=== PATIENT | female | born 1950 | race Caucasian/White ===

== ENCOUNTER 2017-09-17 21:18 | Emergency (ER) | payer BC, SELFPAY ==
[2017-09-17 21:23] VITALS: BP 161/89; PULSE 77; RESP 15; TEMP 36.2; BMI 36.1
[2017-09-17 21:36] LABS: Mucous, Urine 0 SEEN /hpf (<or=2+)
[2017-09-17 21:37] LABS: Glucose, Dipstick Normal (Normal); Ketone-Dipstick Negative (Negative); Leukocyte Esterase-Dipstick Negative /ul (Negative); Nitrite-Dipstick Negative (Negative); Occult Blood-Urine 50 /ul (Negative); Protein-Dipstick 30 mg/dl (Negative); Urine Bilirubin Dipstick Negative (Negative); Urine Urobilinogen Normal (Normal)
[2017-09-17 21:39] LABS: Color, Urine Yellow (Yellow); Urine Clarity Sl Cldy (Clear)
--- NOTE | 2017-09-17 21:43 | CT_ITS ---
STUDY: CT ABDOMEN AND PELVIS WITHOUT CONTRAST REASON FOR EXAM: Female, 67 years old. Right flank pain and vomiting RADIATION DOSAGE (If Supplied By Facility): CTDIvol = ( 16.07 ) mGy, DLP = ( 798.75 ) mGycm TECHNIQUE: Transaxial images were obtained from the dome of the diaphragm to the symphysis pubis without oral contrast, and without intravenous contrast. Sagittal and coronal images were reconstructed. Individualized dose optimization techniques were used for this CT. COMPARISON: 01/02/2011 FINDINGS: The visualized lung bases are unremarkable. The visualized portions of the heart are within normal limits. Small hiatal hernia. Multiple hepatic cysts, the largest measuring 24 mm in the right hepatic lobe. Multiple gallstones are present. The gallbladder is distended. Normal spleen. Normal pancreas. Normal bilateral adrenal glands. Horseshoe kidney is present. Normal visualized stomach. Normal small intestine. There are multiple colonic diverticula consistent with diverticulosis. The appendix is visualized and appears normal. Normal abdominal aorta. Normal inferior vena cava. Normal retroperitoneum. Normal urinary bladder. Normal abdominal wall. There are diffuse degenerative changes of the visualized lumbar spine. CT/Abdomen/Pelvis without Cont IMPRESSION: Distended gallbladder with multiple stones. No evidence of acute intestinal pathology or acute obstructive uropathy. Horseshoe kidney. Small hiatal hernia. Electronically Signed: Pratik Fields MD at 22:45 EST Tel , Service support ,
[2017-09-17 21:46] LABS: Hyaline Cast 0-5 SEEN /lpf (0-5); Squamous Epithelial Cells - UA 0-5 SEEN /hpf (5-10)
--- NOTE | 2017-09-17 21:46 | ED.VISSUMM ---
- ER Visit Summary Date of Service: 09/17/17 Chief Complaint: [] Right flank pain History of Present Illness: The patient is a 67 F [] complaining of right flank pain beginning prior to arrival. Reports nausea and vomiting. Reports a history of kidney stones with similar pain. She reports a history of horseshoe kidney. Reports she has an established urologist but she has not seen him for many years. Denies fevers. Denies dysuria. No other complaints. Physical Examination: [] Afebrile, vital signs stable. Cardiovascular exam is regular rate and rhythm. Lungs are clear to auscultation. Abdomen is soft and nontender, there is mild right CVA tenderness. No lower extremity edema. Remainder of exam is unremarkable. Test Results: [] White cell count elevated 16.8. BMP normal. LFTs normal. Urinalysis negative. CT of the flank shows a mildly distended gallbladder with several gallstones. No obvious kidney stones. Emergency Department Course and Treatment: [] Given intravenous fluids, Toradol, Phenergan, morphine. On serial examination patient had resolution of symptoms. She was able to pass a p.o. challenge. She had stable vital signs. Patient was counseled regarding her diagnostic findings including the need for an outpatient cholecystectomy. She reports that she does not have a surgeon. I encouraged that she follow-up with her PCP for recommendation. She will be discharged with prescriptions for Percocet and Phenergan. Treatment Plan: [] Follow-up with PCP for referral for outpatient surgery.. Disposition: [] Discharge, stable. Impression: [] Cholelithiasis This note was generated with [employer] dictation software. It may contain incorrect words, spelling, and punctuation that were not noted in review of the chart prior to signing ED Disposition - Plan for ED Patient: Chief Complaint: Flank Pain Referrals: Osito Davalos MD [Primary Care Provider] -
[2017-09-17 21:47] LABS: White Blood Cells 0-5 SEEN /hpf (0-5)
[2017-09-17 21:48] LABS: Bacteria 1+ /hpf (None Seen); Red Blood Cells-Urine 0-5 SEEN /hpf (0-5)
[2017-09-17] MEDS: Ketorolac 15 MG/ML Vial IV (21:51)
[2017-09-17] MEDS: 0.9% Normal Saline 1,000 ML 1000 ML IV (21:56)
[2017-09-17 22:25] LABS: Absolute Lymphocyte Count 2.51 X10^3/ul (0.83-4.51); Absolute Neutrophil Count 13.2 X10^3/uL (2.0-7.7); Basophil# 0.03 X10^3/uL; Basophil% 0.2 % (0-1); Eosinophil# 0.27 X10^3/uL; Eosinophils% 1.6 % (0-5); Hematocrit 39.4 % (37-47); Lymphocyte # 2.51 X10^3/ul (4.0); Lymphocyte % 14.9 % (19-41); Mean Corpuscular Hgb 32.2 pg (27.0-32.0); Mean Corpuscular Volume 97.5 fL (81-99); Mean Platelet Vol. 11.3 fl (6.2-12.0); Monocyte# 0.77 X10^3/uL; Monocyte% 4.6 % (0-10); Neutrophil # 13.17 X10^3/uL (2.7-7.7); Neutrophil % 78.3 % (47-70); Platelet Count 270 K/mm3 (150-450); RBC Distribution Width CV 14.3 % (11.6-14.6); RBC Distribution Width SD 50.9 fl (35.1-43.9); Red Blood Count 4.04 M/mm3 (4.2-5.4); White Blood Count 16.8 K/mm3 (4.4-11.0)
[2017-09-17 22:26] LABS: POSITIVE COUNT NO; POSITIVE DIFFERENTIAL NO; POSITIVE MORPHOLOGY NO
[2017-09-17 23:13] LABS: ALB/GLOB Ratio 0.9 RATIO (0.9-2.4); AST(SGOT) 23 U/L (15-37); Alanine Aminotransfer ALT/SGPT 14 U/L (13-56); Albumin, Serum 3.8 g/dL (3.2-5.0); Alkaline Phosphatase 81 U/L (45-117); Anion Gap 8 (5-15); BUN 17 mg/dL (7-18); BUN/Creat Ratio 15.3 RATIO (10-20); Calcium,Total 9.1 mg/dL (8.5-10.1); Chloride 107 mmol/L (98-107); Creatinine, Serum 1.11 mg/dL (0.55-1.02); EST Glomerular Filtration Rate 52 mL/min (>60); Est Glom Filt Rate - Afr Amer 63 mL/min (>60); Globulin 4.2 g/dL (2.2-4.2); Glucose 155 mg/dL (74-106); Potassium 4.5 mmol/L (3.5-5.1); Sodium Level 139 mmol/L (136-145)
--- NOTE | 2017-09-17 23:20 | ED.DEP ---
ED Disposition - Plan for ED Patient: Disposition: Home or Assisted Living Chief Complaint: Flank Pain Instructions: Discharge Instructions for Gallstones Prescriptions: ProMETHAzine [Phenergan] 25 mg PO Q4H PRN PRN #20 tab PRN Reason: Nausea Oxycodone HCl/Acetaminophen [Percocet 5/325] 1 tab PO Q6H PRN PRN #12 tab PRN Reason: Pain Referrals: Osito Davalos MD [Primary Care Provider] -
[2017-09-17 23:47] VITALS: BP 145/58; PULSE 57; RESP 18; O2SAT 97
== END 2017-09-17 23:48 | disposition home or self-care (01) ==
PROVIDERS: Emergency Provider Emergency Medicine; Family Provider Family Medicine; PCP Family Medicine
DX: K80.20 Calculus of gallbladder without cholecystitis without obstruction (principal); Q63.1 Lobulated, fused and horseshoe kidney; I10 Essential (primary) hypertension; F32.9 Major depressive disorder, single episode, unspecified; Z72.0 Tobacco use; Z79.82 Long term (current) use of aspirin; Z79.899 Other long term (current) drug therapy; Z87.442 Personal history of urinary calculi
CPT/HCPCS: 74176; 80053; 81001; 85025; 96361; 96374; 96375; 96376; 99283; J7030; A4216

== ENCOUNTER 2018-11-17 14:29 | Emergency (ER) | payer BC, SELFPAY ==
[2018-10-11 15:35] VITALS: BMI 36.5
[2018-11-17 14:30] VITALS: BP 164/75; PULSE 90; RESP 19; TEMP 37.8; O2SAT 96; BMI 36.6
[2018-11-17 14:54] LABS: Bacteria 0 SEEN /hpf (None Seen); Mucous, Urine 0 SEEN /hpf (<or=2+)
[2018-11-17 14:56] LABS: Color, Urine Yellow (Yellow); Glucose, Dipstick Normal (Normal); Ketone-Dipstick Negative (Negative); Leukocyte Esterase-Dipstick 100 /ul (Negative); Nitrite-Dipstick Negative (Negative); Occult Blood-Urine 150 /ul (Negative); Protein-Dipstick 100 mg/dl (Negative); Specific Gravity, Urine 1.015 (1.002-1.030); Urine Bilirubin Dipstick Negative (Negative); Urine Clarity Sl. Cloudy (Clear); Urine Urobilinogen Normal (Normal)
[2018-11-17 15:01] LABS: Squamous Epithelial Cells - UA 0-5 SEEN /hpf (5-10); White Blood Cells >100 SEEN /hpf (0-5)
[2018-11-17 15:02] LABS: Red Blood Cells-Urine 0-5 SEEN /hpf (0-5)
--- NOTE | 2018-11-17 15:58 | ED.DCSUM_ITS ---
- ER Visit Summary Date of Service: 11/17/18 Chief Complaint: [] Dysuria frequency for a few days History of Present Illness: The patient is a 68 F [] dysuria and frequency for a few days, she denies fever, suprapubic pressure is present no vomiting no back pain she has had UTIs but nothing recent she is otherwise indicated she has a URI with nasal congestion, she is noted to have a temperature of your 100.1 she is not been vomiting She indicates her only real complaint is severe dysuria Physical Examination: [] Temperatures 100.1 she is in no distress resting c the bed General, no distress resting comfortably HEENT is generally unremarkable, except for some nasal congestion The neck is supple no adenopathy Cardiovascular, regular rate and rhythm Lungs, clear bilateral Abdomen, soft nontender, she does complain of some suprapubic discomfort but there is no rebound or guarding Extremities, no clubbing cyanosis or edema Neurologic, awake alert answering questions appropriately moving all 4 extremities Test Results: [] Emergency Department Course and Treatment: [] Her urine does show signs of UTI it was sent for urine culture she is not been on antibiotics recently she is not prone to UTIs she has no signs of Gurwinder or sepsis she does have a congested nose and has had a URI symptoms she wants to go home she feels comfortable with outpatient management she will be started on Keflex Pyridium and to follow-up with her doctors in the next few days return for change in symptoms Treatment Plan: [] Disposition: [] Home stable Impression: [] Urinary tract infection, URI This note was generated with [employer] dictation software. It may contain incorrect words, spelling, and punctuation that were not noted in review of the chart prior to signing ED Disposition - Plan for ED Patient: Referrals: Osito Davalos MD [Primary Care Provider] -
--- NOTE | 2018-11-17 15:58 | ED.DEP ---
ED Disposition - Plan for ED Patient: Instructions: ED UTI Cystitis Female Prescriptions: Cephalexin [Keflex] 500 mg PO Q6 #40 cap Phenazopyridine HCl [Azo Urinary Pain Relief] 99.5 mg PO BID #6 tab Pumpkin Seed Extract/Soy Germ [Azo Bladder Control Capsule] 300 mg PO BID #6 cap Referrals: Osito Davalos MD [Primary Care Provider] -
--- NOTE | 2018-11-17 16:01 | ED.VISSUMM ---
- ER Visit Summary Date of Service: 11/17/18 Chief Complaint: [] History of Present Illness: The patient is a 68 F [] Physical Examination: [] Test Results: [] Emergency Department Course and Treatment: [] Treatment Plan: [] Disposition: [] Impression: [] This note was generated with [employer] dictation software. It may contain incorrect words, spelling, and punctuation that were not noted in review of the chart prior to signing ED Disposition - Plan for ED Patient: Instructions: ED UTI Cystitis Female Prescriptions: Cephalexin [Keflex] 500 mg PO Q6 #40 cap Phenazopyridine HCl [Azo Urinary Pain Relief] 99.5 mg PO BID #6 tab Pumpkin Seed Extract/Soy Germ [Azo Bladder Control Capsule] 300 mg PO BID #6 cap Referrals: Osito Davalos MD [Primary Care Provider] -
[2018-11-17] MEDS: Cephalexin 250 MG Capsule 500 MG PO (16:14)
[2018-11-17] MEDS: Phenazopyridine 95 MG Tablet 190 MG PO (16:14)
== END 2018-11-17 16:47 | disposition home or self-care (01) ==
LOC: ED 16:31
PROVIDERS: Emergency Provider Emergency Medicine; Family Provider Family Medicine; PCP Family Medicine
DX: N39.0 Urinary tract infection, site not specified (principal); J06.9 Acute upper respiratory infection, unspecified; Z87.440 Personal history of urinary (tract) infections
CPT/HCPCS: 81001; 87086; 87088; 87186; 99283

== ENCOUNTER 2019-12-15 09:45 | Emergency (ER) | payer MEDICARE, SELFPAY ==
[2019-12-10 16:06] VITALS: BMI 37.0
[2019-12-15 09:46] VITALS: BP 164/72; PULSE 71; RESP 20; TEMP 36.7; O2SAT 96; BMI 39.8
--- NOTE | 2019-12-15 10:26 | EKG12_ITS ---
Test Reason : CP Blood Pressure : / mmHG Vent. Rate : 066 BPM Atrial Rate : 066 BPM P-R Int : 176 ms QRS Dur : 094 ms QT Int : 384 ms P-R-T Axes : 030 017 019 degrees QTc Int : 402 ms Normal sinus rhythm Normal ECG Confirmed by HERMILO LIM, REBEL ([id number]), editor map DEEDEE PICKARD ([id number]) on 12/17/2019 11:17:22 AM Referred By: JANAY Confirmed By:REBEL AKHTAR MD
[2019-12-15 10:49] VITALS: BP 129/61; PULSE 62; RESP 18; O2SAT 95
[2019-12-15 10:56] LABS: Absolute Neutrophil Count 6.8 X10^3/uL (2.0-7.7); Basophil# 0.08 X10^3/uL; Basophil% 0.8 % (0-1); Eosinophil# 0.39 X10^3/uL; Eosinophils% 3.8 % (0-5); Hematocrit 38.8 % (37-47); Hemoglobin 12.4 g/dL (12.0-15.0); Lymphocyte % 21.3 % (19-41); Mean Corpuscular Hgb 31.3 pg (27.0-32.0); Mean Platelet Vol. 10.8 fl (6.2-12.0); Monocyte# 0.69 X10^3/uL; Monocyte% 6.7 % (0-10); NRBC Flagged by Analyzer 0 % (0-5); Neutrophil # 6.75 X10^3/uL (2.7-7.7); Neutrophil % 65.5 % (47-70); Platelet Count 272 K/mm3 (150-450); RBC Distribution Width CV 14.3 % (11.6-14.6); RBC Distribution Width SD 51.7 fl (35.1-43.9); Red Blood Count 3.96 M/mm3 (4.2-5.4); White Blood Count 10.3 K/mm3 (4.4-11.0)
--- NOTE | 2019-12-15 11:00 | RAD_ITS ---
STUDY: X-RAY CHEST REASON FOR EXAM: Female, 69 years old. Chest discomfort, pain down left arm TECHNIQUE: Single PA view of the chest. The patient is rotated to the right. COMPARISON: December 30, 2016 chest x-ray, January 16, 2015 chest x-ray FINDINGS: Interstitial markings are mildly prominent unchanged since prior study dating back to January 16, 2015. There is no significant change in the appearance of the chest when compared to multiple prior studies. There is no demonstrated pleural abnormality. Normal size heart. Normal mediastinum and david. Normal visualized pulmonary arteries. There is atherosclerotic tortuosity of the aortic arch and descending thoracic aorta. There are diffuse degenerative changes of the visualized thoracic spine. Normal visualized ribs, clavicles, and shoulders. There is no demonstrated abnormality of the visualized soft tissue structures of the upper abdomen. RAD/Chest 1 View (Portable) IMPRESSION: Chronic appearing lung markings. Mild cardiomegaly. No significant change since prior studies. Electronically Signed: Марина Blackburn MD at 11:28 EDT Tel , Service support ,
[2019-12-15] MEDS: 0.9% Normal Saline 1,000 ML 150 ML IV (11:11)
[2019-12-15] MEDS: Aspirin 81 MG TAB.CHEW 324 MG PO (11:11)
--- NOTE | 2019-12-15 11:12 | ED.DCSUM_ITS ---
History of Present Illness Chief Complaint: Chest Pain Informant: Patient Onset: Days Maximum Severity: Mild Narrative: The patient presents complaining of a left upper arm pain squeezing sensation that began this morning when she woke from sleep she was not exerting herself. She is had no fever cough no coronavirus exposures She has history of a cardiac stent placed a number of years ago her cardiovascular status has been stable, she had a virtual visit with her physicians cardiology office this week she has not had any type of provocative study so she is scheduled for cardiac stress test this she indicates this pain is not exertional she has had no fever no cough she has full range of motion of her arm no trauma no numbness weakness paresthesias, she indicates when she had her stent placed she had chest pain in the central chest and this is nothing like that her review of systems are otherwise negative currently asymptomatic and I cannot reproduce the pain on exam Past Medical History - Allergies and Home Meds Allergies/Adverse Reactions: Allergies Dbvdorn-Xgi-Rrp Reductase Inhibitor Allergy (Unknown, Verified 06/05/19 15:47) Other SEVERE PAIN IN THE LIVER MUSCLE CRAMPS Primary Care Physician: Osito Davalos MD [Primary Care Provider] - Past Medical History: - Surgical History: no surgical history, angioplasty Smoking Status: Current every day smoker - Family History Maternal Family History: Family History (Last Reviewed 06/05/19 @ 15:50 by Alix Pina) Father CAD (coronary artery disease) Mother CAD (coronary artery disease) Sister Afib Family History: Reports: No pertinent history Review of Systems ROS: - The extent as above General: Denies: Chills, Fever, Sweats Eyes: Denies: Visual changes - bilaterally, Diplopia ENT: Denies: Rhinorrhea, Sore throat Cardiovascular: Reports: Chest pain, - - He is declining to complain of actual chest pain rather she complains of a squeezing sensation to her left upper arm that occurs intermittently and is not related to exertion or movement of the arm. Denies: Palpitations Respiratory: Denies: Dyspnea, Cough, Dyspnea on exertion Gastrointestinal: Denies: Abdominal pain, Nausea, Vomiting, Diarrhea, Melena, Hematochezia Genitourinary: Denies: Dysuria, Hematuria, Frequency Musculoskeletal: Denies: Back pain, Extremity Pain Skin: Denies: Rash, Wounds Neurological: Denies: Headache, Weakness, Numbness Physical Exam Vital Signs/Narrative: Vital Signs Temp Pulse Resp BP Pulse Ox 12/15/19 10:49 62 18 129/61 H 95 12/15/19 09:46 98.0 F 71 20 H 164/72 H 96 General: Well nourished, Well developed, No Acute Distress Head: Normocephalic, Atraumatic Eyes: Perrl, EOMI ENT: Moist mucous membranes, No rhinorrhea Neck: Supple, Nontender Cardiovascular: Regular rate, Regular rhythm, No murmurs Respiratory: No distress, CTA bilaterally, Chest nontender Abdomen: Soft, Nontender, Nondistended, Normal bowel sounds Back: Nontender, Normal Inspection Extremities: Nontender, No edema Skin: Normal color, No rash Neurological: Alert, Oriented x3, Cranial nerves II-XII grossly intact, Normal Strength, Normal Sensation Psychological: Normal affect, Normal Mood Diagnostic/Tx/Re-eval - Medical Decision Making His vital signs and physical exam are unremarkable, her EKG shows a rate of 66 sinus rhythm no acute injury pattern intervals within normal range given her age and her history and risk factors screening labs are obtained will discuss with cardiology Patient's ED screening evaluation labs chest x-ray unremarkable, spoke with Dr. Delgado her event promotions coordinator he recommended obtaining repeat EKG and troponin repeats were negative discussed with the patient, again we discussed the differential risk serious complications, she indicates she understood all the above she was indicating she does not wish to be admitted she prefers outpatient management she will call the office or return to the emergency department things change in any way and she will keep her appointment for cardiac stress test this week Home stable declined admission Final impression left arm discomfort etiology unclear history of cardiac stents ED Disposition - Plan for ED Patient: Diagnosis: Presence of stent in coronary artery Instructions: ED Chest Pain Atypical Unkn Cause Referrals: Osito Davalos MD [Primary Care Provider] - Additional Instructions: Return for any change in symptoms make sure you follow-up with outpatient providers for all scheduled work-up
[2019-12-15 11:14] VITALS: BP 123/59; PULSE 65; RESP 20; O2SAT 96
[2019-12-15 11:17] LABS: Anion Gap 4 (5-15); BUN 21 mg/dL (7-18); BUN/Creat Ratio 19.8 RATIO (10-20); Calcium,Total 9.4 mg/dL (8.5-10.1); Chloride 113 mmol/L (98-107); Creatinine, Serum 1.06 mg/dL (0.55-1.02); EST Glomerular Filtration Rate 55 mL/min (>60); Est Glom Filt Rate - Afr Amer 66 mL/min (>60); Glucose 122 mg/dL (74-106); Potassium 4.4 mmol/L (3.5-5.1); Sodium Level 141 mmol/L (136-145)
[2019-12-15 11:25] LABS: BNP,B-Type NATRIURETIC PEPTIDE 88.8 pg/mL (0-100)
[2019-12-15 12:00] VITALS: BP 128/59; PULSE 52; RESP 17; O2SAT 97
--- NOTE | 2019-12-15 12:28 | EKG12_ITS ---
Test Reason : REPEAT-CP Blood Pressure : / mmHG Vent. Rate : 050 BPM Atrial Rate : 050 BPM P-R Int : 178 ms QRS Dur : 084 ms QT Int : 436 ms P-R-T Axes : 065 013 012 degrees QTc Int : 397 ms Sinus bradycardia Otherwise normal ECG Confirmed by HERMILO LIM, REBEL ([id number]), commissioning editor DEEDEE PICKARD ([id number]) on 12/17/2019 11:17:10 AM Referred By: BING Confirmed By:REBEL AKHTAR MD
[2019-12-15 13:00] VITALS: BP 145/76; PULSE 55; RESP 20; O2SAT 95
[2019-12-15 14:29] VITALS: BP 125/59; PULSE 61; RESP 12; RESP 16; O2SAT 95
--- NOTE | 2019-12-15 14:31 | ED.RN ---
REVIEWED D/C INSTRUCTIONS, FOLLOW UP CARE, AND S/S THAT WOULD WARRANT A RETURN TO THE ED WITH PT. PT VERBALIZED AN UNDERSTANDING AND DENIES FURTHER QUESTIONS FOR THIS RN. PT SKIN P/W/D, RESP EVEN AND UNLABORED, PT A&O X 3, NO DISTRESS NOTED. PT AMBULATED OUT OF ED, GAIT STEADY.
== END 2019-12-15 14:32 | disposition home or self-care (01) ==
PROVIDERS: Emergency Provider Emergency Medicine; PCP Family Medicine
DX: M79.622 Pain in left upper arm (principal); F17.200 Nicotine dependence, unspecified, uncomplicated; Z79.82 Long term (current) use of aspirin; Z79.899 Other long term (current) drug therapy; Z88.8 Allergy status to other drugs, medicaments and biological substances; Z95.5 Presence of coronary angioplasty implant and graft
CPT/HCPCS: 71045; 80048; 83880; 84484; 85025; 93005; 96360; 96361; 99285; J7030; A4216

== ENCOUNTER → 2019-12-19 07:18 | Outpatient (CLI) | payer MEDICARE, SELFPAY ==
[2019-12-10 16:06] VITALS: BMI 37.0
[2019-12-15 09:46] VITALS: BMI 39.8
--- NOTE | 2019-12-19 09:21 | STRESSREP_ITS ---
Stress Test Report Date: Procedure: Pharmacologic stress nuclear imaging study Indications: Chest pain; shortness of breath/dyspnea: CAD Consent: Per the patient Procedure: The patient underwent pharmacologic (Regadenoson) evaluation with a peak heart rate of 99 beats per minute (64 %predicted maximal heart rate) and a peak blood pressure of 142/78 mmHg. The baseline ECG demonstrated sinus bradycardia. The peak pharmacologic ECG demonstrated no obvious ECG changes. There were no cardiac dysrhythmias pretest, during pharmacologic infusion, or recovery. There was no complaint of chest discomfort during pharmacologic infusion or recovery. The examination was discontinued secondary to completion of protocol. Impression: 1. Pharmacologic (Regadenoson) evaluation 2. Peak pharmacologic ECG with obvious ECG changes. 3. There were no cardiac dysrhythmias pretest, during pharmacologic infusion, or recovery. 4. Nuclear images pending Myocardial perfusion imaging study: Technique: The patient was injected with 14.8 millicuries of technetium 99m Cardiolite and subsequently rest SPECT Cardiolite nuclear imaging was obtained in the horizontal long, vertical long, and short axis views. The patient underwent pharmacologic (Regadenoson) evaluation with a peak heart rate of 99 beats per minute (64 % percent predicted maximal heart rate) and a peak blood pressure of 142/78 mmHg. The patient was injected with 45.0 millicuries of technetium 99m Cardiolite and subsequently stress SPECT Cardiolite nuclear imaging was obtained in the horizontal long, vertical long, and short axis views. A gated Cardiolite study at peak stress was obtained. Interpretation: Rest and stress SPECT Cardiolite nuclear imaging status post realignment, normalization, and attenuation correction demonstrate relative uniform tracer uptake and myocardial perfusion appearing within normal limits. There is end systolic thickening and brightening. The gated Cardiolite study demonstrates myocardial thickening and inward wall motion. The reported LVEF is 80 %. Impression: 1. Rest and stress SPECT Cardiolite nuclear imaging demonstrate relative uniform tracer uptake and myocardial perfusion appearing within normal limits. 2. The gated Cardiolite study reports an LVEF of 80 %. This note was generated with [employer] software. It may contain incorrect words, spelling, and punctuation that were not noted in checking the note before signing.
== END ==
PROVIDERS: PCP Family Medicine; Referring Provider Physician Assistant Medical; Visit Provider Physician Assistant Medical
DX: I25.10 Atherosclerotic heart disease of native coronary artery without angina pectoris (principal); I10 Essential (primary) hypertension; E78.5 Hyperlipidemia, unspecified; R06.00 Dyspnea, unspecified
CPT/HCPCS: 78452; 93017; A9500; A4216; J2785

== ENCOUNTER → 2021-01-19 06:47 | Outpatient (CLI) | payer MEDICARE, SELFPAY ==
[2020-08-03 10:29] VITALS: BMI 41.7
[2021-01-19] MEDS: Methacholine Chloride 18 ml neb kit INHALATION (07:09)
--- NOTE | 2021-01-19 10:04 | BRONCHALL_ITS ---
Bronchoprovocation Challenge Bronchoprovocation Challenge Bronchoprovocation Challenge: BRONCHOPROVOCATION STUDY INTERPRETATION Brief HPI: Patient is a 70 year old female, currently under the care of Dr. Davalos, who presents to [facility] for a bronchoprovocation study secondary to diagnosis of abnormal PFT. Respiratory therapist reports good effort and reproducible results. Interpretation: Initial spirometry showed no large airways obstructive ventilatory defect. The patient was then given increasingly concentrated doses of methacholine in a stepwise fashion, using a modified ATS protocol. The patient had a significant reduction in FEV1 by 21% and a calculated PD20 of 0.87. Impression: Positive bronchoprovocation study and in a range nonspecific for asthma.
== END ==
PROVIDERS: PCP Family Medicine; Referring Provider Family Medicine; Visit Provider Family Medicine
DX: R94.2 Abnormal results of pulmonary function studies (principal)
CPT/HCPCS: 94070; 95070

== ENCOUNTER 2021-01-21 19:32 | Emergency (ER) | payer MEDICARE, SELFPAY ==
[2020-08-03 10:29] VITALS: BMI 41.7
[2021-01-21 19:33] VITALS: BP 132/62; PULSE 64; RESP 16; TEMP 35.8; O2SAT 95; BMI 40.6
--- NOTE | 2021-01-21 19:44 | RAD_ITS ---
HISTORY: Injury. Frontal view of the pelvis, and 2 views of the right hip. Most recent comparison study is a CT scan of the abdomen and pelvis from September 17, 2017. Findings: Bilateral hip arthritis persists. Multilevel degenerative disc disease within the lower lumbar spine persist. Sacroiliac joint arthritis persists. Enthesophytes about the pelvis and greater trochanters are similar. The femoral heads are well-positioned within the respective glenoid fossae. No acute fractures are perceived. RAD/HIP, UNI W/ Pelvis 2-3 Views IMPRESSION: No acute fracture or disease perceived. at 2054 Reported and signed by: Obed Kamara MD Electronically Signed: Obed Kamara MD at 20:53 EDT Tel , Service support ,
--- NOTE | 2021-01-21 19:45 | ED.VIS.LOWEX ---
HPI History of Present Illness Chief Complaint: Lower Extremity Injury Detail of Chief Complaint: Fall with injury to right hip Informant: patient Narrative Narrative: Presents the emergency department after falling off of a swing and injuring her right hip. Patient states that she leaned over the swing to grab something and fell about 2 feet onto her right hip. Patient is able to stand on the hip but if she tries to take a step has a lot of discomfort. She denies any other injuries. No striking her head. She denies neck pain, chest pain, or abdominal pain. [facility] Medical History (Updated 01/21/21 @ 20:[address] Mannie Paulson, DO) Atherosclerotic heart disease of [place] coronary artery without angina pectoris COPD (chronic obstructive pulmonary disease) Dizziness HLD (hyperlipidemia) Hypothyroidism Old myocardial infarction Palpitations Presence of stent in coronary artery (~04/14/14) PVC (premature ventricular contraction) Status post myocardial infarction of inferior wall Home Medications aspirin 81 mg PO DAILY@0800 05/14/14 [History Last Taken 09/17/17] amlodipine 5 mg PO DAILY 09/17/17 [History Last Taken Unknown] sertraline 50 mg tablet 50 mg PO DAILY 04/11/18 [History Last Taken Unknown] levothyroxine 137 mcg tablet 137 mcg PO DAILY 06/05/19 [History Last Taken Unknown] fluticasone propionate 2 spray NASAL DAILY 12/15/19 [History Last Taken Unknown] lisinopril 20 mg tablet 20 mg PO BID 08/03/20 [History Last Taken Unknown] nitroglycerin 0.4 mg sublingual tablet 0.4 mg SUBLINGUAL Q5-15M PRN #25 tab 08/03/20 [Rx Last Taken Unknown] metoprolol succinate 25 mg tablet,extended release 24 hr 25 mg PO DAILY #90 tab 11/24/20 [Rx Last Taken Unknown] Allergy/AdvReac Type Severity Reaction Status Date / Time Trywysz-Ara-Ibm Reductase Allergy Unknown Other Verified 01/21/21 19:35 Inhibitor Family History Father CAD (coronary artery disease) Mother CAD (coronary artery disease) Sister Afib Surgical History History of cholecystectomy Presence of coronary angioplasty implant and graft (~04/14/14) Social History (Updated 08/03/20 @ 11:[address] Jose Delgado MD) Smoking Status: Current every day smoker tobacco type: cigarettes alcohol intake: current Alcohol type: wine substance use type: does not use caffeine: Yes Type: carbonated beverages what type of physical activity do you participate in: aerobics and other details: TaiChi frequency: 1-2 times per week duration: 15-30 minutes/day seatbelt use: always do you feel safe at home: Yes ROS ROS ED Constitutional Constitutional ED: Reports systems reviewed and no addt'l complaints, except as documented; Denies body ache(s), change in weight or chills Eyes Eyes: Denies acute decrease in peripheral vision, change in vision, double vision or loss of vision ENT ENT ED: Reports none; Denies ear pain, lip swelling, loss taste/smell, neck pain, otalgia or sore throat Cardiovascular Cardiovascular: Reports none; Denies abdominal pain, chest pain with activity, leg edema, lightheadedness, palpitations, rapid heart rate or syncope Respiratory/Chest Respiratory/Chest: Reports none; Denies change in mental status, dry cough, dyspnea, hemoptysis, shortness of breath at rest or shortness of breath with exertion Gastrointestinal Gastrointestinal: Reports none; Denies abdominal pain, change in stool character, diarrhea, hematemesis, hematochezia, melena, rectal bleeding or vomiting Genitourinary Genitourinary ED: Reports none; Denies abdominal discomfort, anuria, dysuria, genital pain or polyuria Musculoskeletal Musculoskeletal: Reports none and other Details: Right hip pain ; Denies arthralgias, back pain, difficulty walking, extremity pain, muscle weakness or myalgias Integumentary Reports none; Denies abscess or rash Neurologic Neurologic: Reports none; Denies abnormal gait, confusion, focal weakness, frequent falls, headache(s), loss of vision, numbness, paresthesias, radicular pain, vertigo or weakness Psychiatric Psychiatric: Reports systems reviewed and no addt'l complaints, except as documented and none; Denies behavioral changes, confusion, difficulty concentrating, hallucinations, suicidal ideation, tactile hallucinations or visual hallucinations Endocrine Endocrinology: Denies none, cold intolerance, excessive sweating, fatigue or heat intolerance Hematologic/Lymphatic Hematologic/Lymphatic: Reports none; Denies anemia, easy bleeding or easy bruising Allergic/Immunologic Allergic/Immunologic ED: Denies as per HPI, none, lip swelling, mouth swelling, throat swelling, tongue swelling or hives EXAM Physical Exam Const Vital Signs: 01/21/21 19:33 Temperature 96.4 F L Temperature Source Temporal Pulse Rate 64 Respiratory Rate 16 Blood Pressure 132/62 H Blood Pressure Mean 85 Pulse Ox 95 Oxygen Delivery Method Room Air Positive well nourished and well developed General Appearance ED: well developed and NAD HEENT Reports TM's clear and moist mucous membranes normocephalic and atraumatic; Negative for trauma or tenderness Tympanic Membrane ED: Yes TM's clear Eyes PERRL and EOMs intact bilaterally General Eye ED: Negative for pale conjunctiva or scleral icterus Neck no lymphadenopathy, supple and no JVD General: Negative for tenderness Chest Wall inspection of chest normal and palpation of chest normal Chest: Negative for tenderness Resp normal respiratory effort and clear to auscultation bilaterally Effort and Inspection: Negative for respiratory distress or pain with movement Auscultation: Negative for rhonchi, wheezes or diminished lung sounds Cardio regular rate, regular rhythm, S1 normal heart sound, S2 normal heart sound and no murmurs Peripheral Pulses: pulses 2+ throughout GI normal to inspection, nondistended, normoactive bowel sounds, soft to palpation, non-tender, non-distended and no masses Back/Spine no CVA tenderness and no thoracic nor lumbar tenderness Extremity normal to inspection Extremity Narrative: Evaluation of the right hip reveals no shortening or external rotation. She is neurovascular intact distally. She has some tenderness over the right hip on palpation but there is no ecchymosis or bruising. Minimal pain with logrolling. General Extremety ED: Negative for edema General Extremity: Negative for edema Neuro oriented x3, CN's II-XII intact bilaterally, no sensory deficits noted and gait normal Sensorium / Orientation: awake, alert, oriented to person, oriented to place and oriented to time Motor Exam: strength 5/5 throughout and strength abnormal Psych mental status grossly normal Skin no rashes or lesions noted and no wounds MDM MDM MDM Narrative Medical decision making narrative: My interpretation of x-rays I do not appreciate any fractures. I suspect patient likely has a contusion of her hip. Patient does not like thing for pain here. Patient states she will use ibuprofen. Patient has crutches. She will follow-up with her primary care physician in 5 to 7 days. Radiography Diagnostic Testing: Three-view x-rays of right hip and pelvis obtained interpreted by myself as no acute fractures. Official report from radiology will be pending. Discharge Plan Triage Chief Complaint: Lower Extremity Injury ED Provider: Mannie Paulson Dx/Rx/DC Orders Clinical Impression: Contusion of hip, right Instructions: ED Hip Contusion Prescriptions: No Action sertraline 50 mg tablet 50 mg PO DAILY RF: 0 levothyroxine 137 mcg tablet 137 mcg PO DAILY RF: 0 lisinopril 20 mg tablet 20 mg PO BID RF: 0 nitroglycerin 0.4 mg tablet, sublingual 0.4 mg SUBLINGUAL Q5-15M PRN (Reason: chest pain) Qty: 25 RF: 3 aspirin 81 MG tablet,chewable 81 mg PO DAILY@0800 RF: 0 amlodipine 5 MG tablet 5 mg PO DAILY RF: 0 fluticasone propionate 50 mcg/actuation spray,suspension 2 spray NASAL DAILY RF: 0 metoprolol succinate 25 mg tablet extended release 24 hr 25 mg PO DAILY Qty: 90 RF: 3 Primary Care Provider: Osito Davalos Referrals: Osito Davalos MD [Primary Care Provider] - 5-7 Days Disposition Disposition: Home, self care
== END 2021-01-21 20:31 | disposition home or self-care (01) ==
PROVIDERS: Emergency Provider Emergency Medicine; PCP Family Medicine
DX: S70.01XA Contusion of right hip, initial encounter (principal); W09.1XXA Fall from playground swing, initial encounter; Y93.9 Activity, unspecified; Y92.9 Unspecified place or not applicable; Y99.9 Unspecified external cause status; I25.10 Atherosclerotic heart disease of native coronary artery without angina pectoris; I49.3 Ventricular premature depolarization; J44.9 Chronic obstructive pulmonary disease, unspecified; E78.5 Hyperlipidemia, unspecified; E03.9 Hypothyroidism, unspecified; F17.210 Nicotine dependence, cigarettes, uncomplicated; Z79.82 Long term (current) use of aspirin; Z79.890 Hormone replacement therapy; Z79.899 Other long term (current) drug therapy; I25.2 Old myocardial infarction; Z95.5 Presence of coronary angioplasty implant and graft
CPT/HCPCS: 73502; 99282

== ENCOUNTER → 2021-12-09 | Outpatient (CLI) | payer MEDICARE, SELFPAY ==
[2021-12-09 10:10] LABS: AST(SGOT) 16 U/L (15-37); Alanine Aminotransfer ALT/SGPT 12 U/L (13-56); Albumin, Serum 3.7 g/dL (3.2-5.0); Alkaline Phosphatase 84 U/L (45-117); Bilirubin, Direct 0.06 mg/dL (0.00-0.30); Cholesterol 283 mg/dL (200); Globulin 4.1 g/dL (2.2-4.2); High Density Lipoprotein 37 mg/dL; Protein, Total 7.8 g/dL (6.4-8.2); Triglycerides 182 mg/dL; Very Low Density Lipoprotein 36 mg/dL (5-40)
== END | disposition home or self-care (01) ==
PROVIDERS: PCP Family Medicine; Referring Provider Internal Medicine Cardiovascular Disease; Visit Provider Internal Medicine Cardiovascular Disease
DX: E78.00 Pure hypercholesterolemia, unspecified (principal)
CPT/HCPCS: 36415; 80061; 80076

== ENCOUNTER 2023-02-14 15:32 | Emergency (ER) | payer MEDICARE, SELFPAY ==
[2023-02-14 15:33] VITALS: BP 146/93; PULSE 64; RESP 14; TEMP 36.1; O2SAT 94; BMI 37.5
--- NOTE | 2023-02-14 16:39 | EX.ED.VIS.EY ---
HPI History of Present Illness Chief Complaint: Eye Problem [facility] Medical History (Updated 02/14/23 @ 17:[address] Jorge Riggs, DO) Atherosclerotic heart disease of [place] coronary artery without angina pectoris COPD (chronic obstructive pulmonary disease) Dizziness HLD (hyperlipidemia) Hypothyroidism Old myocardial infarction Palpitations Presence of stent in coronary artery (~04/14/14) PVC (premature ventricular contraction) Status post myocardial infarction of inferior wall Home Medications aspirin 81 mg chewable tablet 81 mg PO DAILY@0800 BLOOD THINNER 05/14/14 [History Last Taken 09/17/17] sertraline 50 mg tablet 50 mg PO DAILY 04/11/18 [History Last Taken Unknown] lisinopril 20 mg tablet 20 mg PO BID 08/03/20 [History Last Taken Unknown] nitroglycerin 0.4 mg sublingual tablet 0.4 mg sublingual Q5-15M PRN chest pain #25 tabs 08/03/20 [Rx Last Taken Unknown] albuterol sulfate 90 mcg/actuation aerosol inhaler 2 puff inhalation Q6H PRN 11/24/21 [History Last Taken Unknown] fluticasone propionate 50 mcg/actuation nasal spray,suspension 2 spray NASAL DAILY PRN 11/24/21 [History Last Taken Unknown] levothyroxine 150 mcg tablet 150 mcg PO DAILY 11/24/21 [History Last Taken Unknown] amlodipine 10 mg tablet 10 mg PO DAILY 05/25/22 [History Last Taken Unknown] primidone 50 mg tablet 100 mg PO QHS 05/25/22 [History Last Taken Unknown] metoprolol succinate 25 mg tablet,extended release 24 hr 25 mg PO DAILY BP CTRL #90 tabs 11/11/22 [Rx Last Taken Unknown] ciprofloxacin HCl 0.3 % eye drops 1 drp RIGHT EYE Q4H 5 days #10 mL 02/14/23 [Rx Last Taken Unknown] Allergy/AdvReac Type Severity Reaction Status Date / Time Wqmtpal-ZYT-OcA Reductase Allergy Unknown Other Verified 02/14/23 15:33 Inhibitor [Tkvfyyn-Rin-Mwv Reductase Inhibitor] Family History Father CAD (coronary artery disease) Mother CAD (coronary artery disease) Sister Afib Surgical History History of cholecystectomy Presence of coronary angioplasty implant and graft (~04/14/14) Social History Smoking Status: Current every day smoker tobacco type: cigarettes alcohol intake: current Alcohol type: wine substance use type: does not use caffeine: Yes Type: carbonated beverages what type of physical activity do you participate in: aerobics and other details: TaiChi frequency: 1-2 times per week duration: 15-30 minutes/day seatbelt use: always do you feel safe at home: Yes EXAM Physical Exam Const Vital Signs: 02/14/23 15:33 Temperature 97 F L Temperature Source Temporal Pulse Rate 64 Respiratory Rate 14 Blood Pressure 146/93 H Blood Pressure Mean 110 Pulse Ox 94 Oxygen Delivery Method Room Air [facility] MDM MDM Narrative Medical decision making narrative: HISTORY OF PRESENT ILLNESS: 72-year-old female here with concern for eye injury while gardening. Patient states a branch injured her right eye. She does not wear contacts. REVIEW OF SYSTEMS: Pertinent positives: Eye injury Pertinent negatives: Loss of vision PHYSICAL EXAM: Nursing triage notes reviewed, Vital signs reviewed Constitutional: please see mdm HENT: MMM Eyes: Pupils equal round and reactive to light, Extraocular muscles intact, visual [place] intact, visual acuity 20/40 bilaterally, fluorescein stain with no obvious Tanisha sign with there is a: Abrasion noted at 3 o'clock position. No obvious foreign body with lid eversion Neck: No stridor, no JVD, full neck ROM Lungs: Clear to auscultation, No wheezing or rales. No increased work of breathing, no conversational dyspnea, no accessory muscle use, no nasal flaring. No respiratory distress noted Heart: Regular rate and rhythm, No murmurs, No rubs and No gallops, 2+ distal pulses (radial, femoral, posterior tibial) in all extremities Neuro: No focal neurological deficits, cranial nerves II through XII intact, 5/5 strength in all extremities. Intact sensation to light touch in all extremities, 2+ reflexes bilateral patella tendons. Normal gait. No ataxia. Skin: No rash or lesions noted MEDICAL DECISION MAKING: Chief Complaint: Eye pain ALL IMAGES (IF OBTAINED) HAVE BEEN PERSONALLY REVIEWED AND INTERPRETED BY MYSELF. MDM Narrative: Patient was hemodynamically stable, afebrile, nontoxic-appearing I considered the following differential diagnosis: Corneal abrasion, globe rupture, foreign body in the eye Exam consistent with corneal abrasion we will give prophylactic antimicrobial drops. Had a risk-benefit discussion with the patient in regards to ongoing tetracaine treatment. Alerted her of the risk of corneal ulceration. Patient accepted risk decided to take tetracaine home for pain control she agreed to only use it twice a day 1 drop each for the next 5 days. The patient and/or family, caregivers express understanding. The patient and/or family, caregivers agrees with the plan. Total critical care time today provided was at least 0 minutes. This excludes separately billable procedures. Critical care time (if documented) is secondary to the patient having high probability of clinically significant/life threatening deterioration in the patient's condition which required my urgent intervention. Shared decision making: I will have a discussion with the patient and or visitors regarding risk/benefits of further testing or admission. They will be made aware of of the risk/benefits inherent in this decision they will be given the opportunity to voice understanding. Discharge Plan Triage Chief Complaint: Eye Problem Other Complaint: Headache ED Provider: Jorge Riggs Dx/Rx/DC Orders Clinical Impression: Abrasion, corneal Instructions: ED Corneal Abrasion Prescriptions: New ciprofloxacin HCl 0.3 % drops 1 drp RIGHT EYE Q4H 5 Days Qty: 10 0RF Rx Instructions: 1 drp into the Right EYE; No Action sertraline 50 mg tablet 50 mg PO DAILY lisinopril 20 mg tablet 20 mg PO BID nitroglycerin 0.4 mg tablet, sublingual 0.4 mg SUBLINGUAL Q5-15M PRN (Reason: chest pain) Qty: 25 3RF Rx Instructions: until response; do not exceed 3 doses per episode levothyroxine 150 mcg tablet 150 mcg PO DAILY albuterol sulfate 90 mcg/actuation HFA aerosol inhaler 2 puff inhalation Q6H PRN amlodipine 10 mg tablet 10 mg PO DAILY Patient Comments: TAKE 1 TABLET BY MOUTH EVERY DAY primidone 50 mg tablet 100 mg PO QHS Patient Comments: TAKE 2 TABLETS BY MOUTH EVERY DAY AT BEDTIME aspirin 81 MG tablet,chewable 81 mg PO DAILY@0800 Patient Comments: [facility] fluticasone propionate 50 mcg/actuation spray,suspension 2 spray NASAL DAILY PRN metoprolol succinate 25 mg tablet extended release 24 hr 25 mg PO DAILY Qty: 90 3RF Primary Care Provider: Osito Davalos Referrals: Hilario South MD [Med Staff - Active Staff] - Activity Restrictions/Additional Instructions: Thank you for trusting us with your care today! Please take Tylenol (2 pills, 650 mg), ibuprofen (2 pills, 400 mg) every 6 hours as needed for pain and fever control. Please take eyedrops as prescribed. Please use tetracaine only 1 drop in the affected eye only twice a day. Only use this for the next 5 days. Please return to the emergency department if your symptoms change or worsen. Specifically develop loss of vision, blurry vision, increasing pain. Please follow with your primary care physician for further outpatient evaluation and management. Disposition Disposition: Home, Self Care
[2023-02-14] MEDS: Tetracaine 0.5% Ophthalmic Bottle 1 DRP EACH EYE (16:46)
[2023-02-14] MEDS: Fluorescein 1 MG STRIP 2 STRIP EACH EYE (16:46)
== END 2023-02-14 18:05 | disposition home or self-care (01) ==
LOC: ED 17:17
PROVIDERS: Emergency Provider Emergency Medicine; PCP Family Medicine; Visit Provider Emergency Medicine
DX: S05.01XA Injury of conjunctiva and corneal abrasion without foreign body, right eye, initial encounter (principal); J44.9 Chronic obstructive pulmonary disease, unspecified; W22.8XXA Striking against or struck by other objects, initial encounter; Y93.H2 Activity, gardening and landscaping; I25.10 Atherosclerotic heart disease of native coronary artery without angina pectoris; E78.5 Hyperlipidemia, unspecified; E03.9 Hypothyroidism, unspecified; I25.2 Old myocardial infarction; F17.210 Nicotine dependence, cigarettes, uncomplicated; Z79.82 Long term (current) use of aspirin; Z79.890 Hormone replacement therapy; Z79.899 Other long term (current) drug therapy; Z95.5 Presence of coronary angioplasty implant and graft
CPT/HCPCS: 99283

== ENCOUNTER 2023-03-22 10:38 | Emergency (ER) | payer MEDICARE, SELFPAY ==
[2023-03-22 10:39] VITALS: BP 171/81; PULSE 84; RESP 16; TEMP 36.3; O2SAT 97; BMI 37.2
--- NOTE | 2023-03-22 10:46 | EKG12_ITS ---
Test Reason : CP Blood Pressure : / mmHG Vent. Rate : 056 BPM Atrial Rate : 056 BPM P-R Int : 174 ms QRS Dur : 084 ms QT Int : 442 ms P-R-T Axes : 020 -01 006 degrees QTc Int : 426 ms Sinus bradycardia Low voltage QRS Inferior infarct , age undetermined Abnormal ECG Confirmed by ORLANDO LIM, LOIS ([id number]), capsule filler GUSTAVO DE ANDA ([id number]) on 03/27/2023 8:13:19 AM Referred By: Confirmed By:KATARINA PERRY MD
--- NOTE | 2023-03-22 10:47 | EDS_ITS ---
HPI History of Present Illness Chief Complaint: Chest Pain Narrative Narrative: Patient presents with chest pain that started yesterday, she took nitroglycerin but it did not improve her pain. She describes the pain as sharp and stabbing however now it is more of an ache. She has no radiation to her arm or back. She has no tearing sensation. There is no pleuritic component. She does have some epigastric pain with this. No recent fevers or chills. No recent travel history. No lower extremity edema or calf pain. [facility] Medical History (Updated 03/22/23 @ 13:[address] Jose Jackson MD) Atherosclerotic heart disease of [place] coronary artery without angina pectoris COPD (chronic obstructive pulmonary disease) Dizziness HLD (hyperlipidemia) Hypothyroidism Old myocardial infarction Palpitations Presence of stent in coronary artery (~04/14/14) PVC (premature ventricular contraction) Status post myocardial infarction of inferior wall Home Medications aspirin 81 mg chewable tablet 81 mg PO DAILY@0800 BLOOD THINNER 05/14/14 [History Last Taken 09/17/17] sertraline 50 mg tablet 50 mg PO DAILY 04/11/18 [History Last Taken Unknown] lisinopril 20 mg tablet 20 mg PO BID 08/03/20 [History Last Taken Unknown] nitroglycerin 0.4 mg sublingual tablet 0.4 mg sublingual Q5-15M PRN chest pain #25 tabs 08/03/20 [Rx Last Taken Unknown] albuterol sulfate 90 mcg/actuation aerosol inhaler 2 puff inhalation Q6H PRN shortness of breath 11/24/21 [History Last Taken Unknown] fluticasone propionate 50 mcg/actuation nasal spray,suspension 2 spray NASAL DAILY PRN nasal congestion 11/24/21 [History Last Taken Unknown] levothyroxine 150 mcg tablet 150 mcg PO DAILY 11/24/21 [History Last Taken Unknown] amlodipine 10 mg tablet 10 mg PO DAILY 05/25/22 [History Last Taken Unknown] primidone 50 mg tablet 100 mg PO QHS 05/25/22 [History Last Taken Unknown] metoprolol succinate 25 mg tablet,extended release 24 hr 12.5 mg PO DAILY BP CTRL 03/22/23 [History Last Taken Unknown] terbinafine HCl 250 mg tablet 250 mg PO DAILY 03/22/23 [History Last Taken Unknown] Allergy/AdvReac Type Severity Reaction Status Date / Time Ajlchcz-SOP-WdV Reductase Allergy Unknown Other Verified 03/22/23 10:40 Inhibitor [Suibvlq-Eae-Fqa Reductase Inhibitor] Family History Father CAD (coronary artery disease) Mother CAD (coronary artery disease) Sister Afib Surgical History History of cholecystectomy Presence of coronary angioplasty implant and graft (~04/14/14) Social History Smoking Status: Current every day smoker tobacco type: cigarettes alcohol intake: current Alcohol type: wine substance use type: does not use caffeine: Yes Type: carbonated beverages what type of physical activity do you participate in: aerobics and other details: TaiChi frequency: 1-2 times per week duration: 15-30 minutes/day seatbelt use: always do you feel safe at home: Yes ROS ROS ED ROS Narrative Past medical history: Reviewed, includes CAD, she had 1 stent placed 10 years ago Medications: Reviewed Social history: Continues to smoke Review of systems: All systems negative except as indicated General: No fever Eyes: No visual changes ENT: No upper airway congestion, normal voice Neck: No neck pain Cardiovascular: Chest pain as in HPI Respiratory: No shortness of breath or cough Gastrointestinal: Some epigastric pain. Genitourinary: No dysuria Musculoskeletal: Denies myalgias no difficulty with ambulation Skin: No rash Neurological: No memory loss, confusion or any focal weakness EXAM Physical Exam Narrative Exam Narrative: Physical exam General: She is relatively comfortable in the bed. Head: Normocephalic, Atraumatic Eyes: Conjunctiva not pale ENT: Moist mucous membranes Neck: Supple, Nontender, No lymphadenopathy Cardiovascular: Regular rate, Regular rhythm. I do not appreciate any murmurs. Normal S1 and S2. Respiratory: No distress, CTA bilaterally Abdomen: Soft, Nontender, Nondistended Back: Nontender, Normal Inspection. Negative for: CVA tenderness Extremities: Nontender, No edema Skin: Normal color, No rash Neurological: Alert, Normal Strength, Normal Sensation Psychological: Normal affect Const Vital Signs: 03/22/23 10:39 03/22/23 11:19 03/22/23 11:20 Temperature 97.3 F L Temperature Source Temporal Pulse Rate 84 54 L Respiratory Rate 16 14 Respiratory Effort Normal Non-Labored Blood Pressure 171/81 H 122/59 H Blood Pressure Mean 111 80 Pulse Ox 97 92 Oxygen Delivery Method Room Air Room Air 03/22/23 12:49 Temperature Temperature Source Pulse Rate 56 L Respiratory Rate 18 Respiratory Effort Blood Pressure 128/61 H Blood Pressure Mean 83 Pulse Ox 92 Oxygen Delivery Method Room Air MDM MDM MDM Narrative Medical decision making narrative: Patient presents with epigastric and chest pain. She received a GI cocktail and analgesics and improved, EKG is unremarkable and she does not meet criteria for admission I talked to her about this. She may have gastritis or other etiologies. Per hospital protocol she is ruled out for acute coronary syndrome. She can follow-up with cardiology and PCP. If anything changes patient is to return to the ED. Lab Data Labs: Laboratory Results - last 24 hr 03/22/23 03/22/23 10:55 13:05 WBC 9.2 RBC 3.93 L Hgb 13.0 Hct 38.7 MCV 98.5 MCH 33.1 H MCHC 33.6 RDW Std Deviation 52.9 H RDW Coeff of Patti 14.6 Plt Count 229 MPV 10.5 Immature Gran % (Auto) 0.900 Neut % (Auto) 70.0 Lymph % (Auto) 19.0 [place] % (Auto) 6.1 Eos % (Auto) 3.3 Baso % (Auto) 0.7 Absolute Neuts (auto) 6.4 Absolute Lymphs (auto) 1.74 Nucleated RBC % 0 Sodium 139 Potassium 4.0 Chloride 108 H Carbon Dioxide 26.0 Anion Gap 5 BUN 14 Creatinine 1.01 Estim Creat Clear Calc 42.87 Est GFR (MDRD) Af Amer 70 Est GFR (MDRD) Non-Af 57 L BUN/Creatinine Ratio 13.9 Glucose 109 H Calcium 8.8 Total Bilirubin 0.20 AST 12 L ALT 8 L Alkaline Phosphatase 73 Troponin I High Sens 6 7 Total Protein 7.4 Albumin 3.5 Globulin 3.9 Albumin/Globulin Ratio 0.9 Lipase 41 Radiography Diagnostic Testing: Clinical Impression(s) from Imaging Studies Chest X-Ray 03/22/23 11:10 IMPRESSION: Borderline cardiomegaly. No acute abnormality is seen. Electronically Signed: Sage Dumont MD at 12:14 EDT , Chest x-ray read by me as normal Rhythm Strip Rhythm Strip: Sinus Rhythm Rate: 56 Ectopy: None EKG Initial EKG: Comments: Sinus rhythm with a rate of 56. Normal ME and QTc intervals. No acute ischemic changes. Interpreted by emergency doctor Discharge Plan Triage Chief Complaint: Chest Pain ED Provider: Jose Jackson Dx/Rx/DC Orders Clinical Impression: Epigastric pain, Chest pain Instructions: ED Chest Pain, Uncertain Cause Prescriptions: No Action sertraline 50 mg tablet 50 mg PO DAILY lisinopril 20 mg tablet 20 mg PO BID nitroglycerin 0.4 mg tablet, sublingual 0.4 mg SUBLINGUAL Q5-15M PRN (Reason: chest pain) Qty: 25 3RF Rx Instructions: until response; do not exceed 3 doses per episode levothyroxine 150 mcg tablet 150 mcg PO DAILY albuterol sulfate 90 mcg/actuation HFA aerosol inhaler 2 puff inhalation Q6H PRN (Reason: shortness of breath) amlodipine 10 mg tablet 10 mg PO DAILY Patient Comments: TAKE 1 TABLET BY MOUTH EVERY DAY primidone 50 mg tablet 100 mg PO QHS Patient Comments: TAKE 2 TABLETS BY MOUTH EVERY DAY AT BEDTIME aspirin 81 MG tablet,chewable 81 mg PO DAILY@0800 Patient Comments: [facility] fluticasone propionate 50 mcg/actuation spray,suspension 2 spray NASAL DAILY PRN (Reason: nasal congestion) terbinafine HCl 250 mg tablet 250 mg PO DAILY metoprolol succinate 25 mg tablet extended release 24 hr 12.5 mg PO DAILY Primary Care Provider: Osito Davalos Referrals: Osito Davalos MD [Primary Care Provider] - 3-5 Days Disposition Disposition: Home, Self Care
[2023-03-22] MEDS: Morphine 4 MG/ML Syringe IV (11:03)
[2023-03-22] MEDS: Ondansetron 4 MG/2 ML Vial IV (11:03)
[2023-03-22 11:04] LABS: Absolute Lymphocyte Count 1.74 X10^3/uL (0.83-4.51); Absolute Neutrophil Count 6.4 X10^3/uL (2.0-7.7); Basophil# 0.06 X10^3/uL; Basophil% 0.7 % (0-1); Eosinophils% 3.3 % (0-5); Hematocrit 38.7 % (37-47); Lymphocyte # 1.74 X10^3/ul (0.83-4.51); Mean Corp Hgb Conc 33.6 g/dL (32-36); Mean Corpuscular Hgb 33.1 pg (27.0-32.0); Mean Corpuscular Volume 98.5 fL (81-99); Mean Platelet Vol. 10.5 fl (6.2-12.0); Monocyte# 0.56 X10^3/uL; Monocyte% 6.1 % (0-10); NRBC Flagged by Analyzer 0 % (0-5); Neutrophil # 6.41 X10^3/uL (2.7-7.7); Platelet Count 229 K/mm3 (150-450); RBC Distribution Width CV 14.6 % (11.6-14.6); RBC Distribution Width SD 52.9 fl (35.1-43.9); Red Blood Count 3.93 M/mm3 (4.2-5.4); White Blood Count 9.2 K/mm3 (4.4-11.0)
--- NOTE | 2023-03-22 11:10 | RAD_ITS ---
STUDY: X-RAY CHEST REASON FOR EXAM: Female, 72 years old. CP TECHNIQUE: Single AP portable view of the chest. COMPARISON: Comparison is made with prior study of December 15, 2019. FINDINGS: EKG electrodes are seen. The lungs are clear and expanded. There is no demonstrated pleural abnormality. There is borderline cardiomegaly. Normal mediastinum and david. Normal visualized pulmonary arteries. There is atherosclerotic calcification of the aortic arch with tortuosity. Normal visualized thoracic spine. Normal visualized ribs, clavicles, and shoulders. There is no demonstrated abnormality of the visualized soft tissue structures of the upper abdomen. RAD/Chest 1 View (Portable) IMPRESSION: Borderline cardiomegaly. No acute abnormality is seen. Electronically Signed: Sage Dumont MD at 12:14 EDT ,
[2023-03-22 11:19] VITALS: BP 122/59; PULSE 54; RESP 14; O2SAT 92
[2023-03-22 11:23] LABS: ALB/GLOB Ratio 0.9 RATIO (0.9-2.4); AST(SGOT) 12 U/L (15-37); Alanine Aminotransfer ALT/SGPT 8 U/L (13-56); Albumin, Serum 3.5 g/dL (3.2-5.0); Alkaline Phosphatase 73 U/L (45-117); Anion Gap 5 (5-15); BUN 14 mg/dL (7-18); BUN/Creat Ratio 13.9 RATIO (10-20); Calcium,Total 8.8 mg/dL (8.5-10.1); Chloride 108 mmol/L (98-107); Creatinine, Serum 1.01 mg/dL (0.55-1.02); EST Glomerular Filtration Rate 57 mL/min (>60); Est Glom Filt Rate - Afr Amer 70 mL/min (>60); Estimated Creatinine Clearance 42.87 ml/min; Globulin 3.9 g/dL (2.2-4.2); Glucose 109 mg/dL (74-106); Lipase 41 U/L (13-75); Protein, Total 7.4 g/dL (6.4-8.2); Sodium Level 139 mmol/L (136-145); Troponin-I HS (w/2H Reflex) 6 pg/mL (3.0-54.0)
[2023-03-22 12:49] VITALS: BP 128/61; PULSE 56; RESP 18; O2SAT 92
[2023-03-22 13:02] LABS: Reflex Troponin-HS? (from REC) Y
[2023-03-22 13:31] LABS: Troponin-I HS 7 pg/mL (3.0-54.0)
[2023-03-22] MEDS: Mag Hydrox/Al Hydrox/Simeth 30 ML UDC PO (13:37)
== END 2023-03-22 14:07 | disposition home or self-care (01) ==
PROVIDERS: Emergency Provider Emergency Medicine; PCP Family Medicine; Visit Provider Emergency Medicine
DX: R07.9 Chest pain, unspecified (principal); J44.9 Chronic obstructive pulmonary disease, unspecified; R10.13 Epigastric pain; I25.10 Atherosclerotic heart disease of native coronary artery without angina pectoris; E78.5 Hyperlipidemia, unspecified; E03.9 Hypothyroidism, unspecified; F17.210 Nicotine dependence, cigarettes, uncomplicated; I25.2 Old myocardial infarction; Z79.82 Long term (current) use of aspirin; Z79.899 Other long term (current) drug therapy; Z95.5 Presence of coronary angioplasty implant and graft
CPT/HCPCS: 71045; 80053; 83690; 84484; 85025; 93005; 96374; 96375; 99284; J7030; A4216; J2405

== ENCOUNTER → 2023-05-11 | Outpatient (CLI) | payer MEDICARE, SELFPAY ==
[2023-05-11 17:08] LABS: Anion Gap 3 (5-15); BUN 26 mg/dL (7-18); BUN/Creat Ratio 20.5 RATIO (10-20); Chloride 105 mmol/L (98-107); Creatinine, Serum 1.27 mg/dL (0.55-1.02); EST Glomerular Filtration Rate 44 mL/min (>60); Est Glom Filt Rate - Afr Amer 53 mL/min (>60); Glucose 107 mg/dL (74-106); Potassium 4.7 mmol/L (3.5-5.1); Sodium Level 137 mmol/L (136-145)
== END | disposition home or self-care (01) ==
LOC: LAB 16:06
PROVIDERS: PCP Family Medicine; Referring Provider Physician Assistant Medical; Visit Provider Physician Assistant Medical
DX: I10 Essential (primary) hypertension (principal); Z79.899 Other long term (current) drug therapy; Z51.81 Encounter for therapeutic drug level monitoring
CPT/HCPCS: 36415; 80048

== ENCOUNTER 2025-07-10 20:56 | Emergency (ER) | payer MEDICARE, SELFPAY ==
[2025-07-10 20:57] VITALS: BP 153/76; PULSE 65; RESP 16; TEMP 36.9; O2SAT 98; BMI 39.8
[2025-07-10 21:23] VITALS: O2SAT 98
--- OUTSIDE RECORDS SUMMARY | 2025-07-10 21:30 | XMS RPT_ITS | CCD ---
Author Organization [facility] Care Team Providers Care Hydraulic Spinner Name Role Phone Niranjan Emy Perea Unavailable UreñaEmy Unavailable SATYA ROSAS Unavailable Unavailable SATYA ROSAS Unavailable Unavailable Emy Ureña Unavailable Dr. Osito Davalos Primary Care Provider Dr. Osito Davalos Referring Provider Dr. Jose Delgado Attending Provider Sherri Davalos MD Primary Care Provider Sherri Davalos MD Primary Care Provider Jil SAMANO, Monika Unavailable Sherri Davalos MD Primary Care Provider Jil SAMANO, Monika Unavailable Sherri Davalos MD Primary Care Provider Jil SAMANO, Monika Unavailable Ernesto SAMANO, Bernice Unavailable Ernesto SAMANO, Bernice Unavailable [phone] Group, [facility] Unavailable Brooke Rao RN Unavailable Unavailable Sherri Davalos MD Primary Care Provider Group, [facility] Unavailable Unavailable Podlogar CONTRACTOR FIELD HAULING.Zeynep JOHNSTON Unavailable Osito Davalos Referring Unavailable Osito Davalos Primary Care Unavailable Jaguar Thompson Attending Unavailable Jaguar Thompson Attending Unavailable Osito Davalos Referring Unavailable Osito Davalos Primary Care Unavailable Kn[place]le CONTRACTOR FIELD HAULING.Shani JOHNSTON Unavailable [place]le CONTRACTOR FIELD HAULING.Shani JOHNSTON Unavailable [place] CONTRACTOR FIELD HAULING.Shani JOHNSTON Unavailable FLEX CARRILLO Attending Unavailable PODLOGAR, ZEYNEP Referring Unavailable SHERRI DAVALOS Primary Care Unavailab le WEISSDEAN ORTEGA Attending Unavailable SHERRI DAVALOS Primary Care Unavailab le DEEMICHEAL Attending Unavailable SHERRI DAVALOS Primary Care Unavailab le SHERRI DAVALOS Referring Unavailab le PODLOGAR, ZEYNEP Referring Unavailable SHERRI DAVALOS Primary Care Unavailab le PODLOGAR, ZEYNEP Referring Unavailable SHERRI DAVALOS Primary Care Unavailab le PODLOGAR, ZEYNEP Attending Unavailable SHERRI DAVALOS Primary Care Unavailab le PODLOGAR, ZEYNEP Referring Unavailable SHERRI DAVALOS Primary Care Unavailab le PODLOGAR, ZEYNEP Attending Unavailable SHERRI DAVALOS Primary Care Unavailab le PODLOGAR, ZEYNEP Referring Unavailable SHERRI DAVALOS Primary Care Unavailab le OLESYA DAVALOSER Mica Primary Care Unavailab le PODLOGAR, ZEYNEP Attending Unavailable Allergies Allergy Classification Reported Allergen(s) Allergy Type Date of Onset Reaction(s) Facility (3 sources) Hmg-Coa Reductase Inhibitors (Statins) drug allergy 5 myalgias [facility] Work Phone: (20 sources) Hmg-Coa Reductase Inhibitors (Statins); Translations: [DALRGEP-RHH-WW A REDUCTASE INHIBITORS] Propensity to adverse reactions to drug (disorder) 3 Other: See Comments [facility] Other [facility] (20 sources) POISON RAHEL EXTRACT; Translations: [POISON RAHEL EXTRACT] Drug Allergy 2 Other: See Comments [facility] (20 sources) metFORMIN; Translations: [METFORMIN] Drug Allergy 2 GI Upset [facility] Work Phone: (2 sources) Yxogdlj-Tbq-Pba Reductase Inhibitor Allergy to substance 3 Other [facility] (1 source) Nshrsml-Ghh-Bog Reductase Inhibitor Drug allergy (disorder) 5 [facility] Repository Medications Current Medications Medication Drug Class(es) Dates Sig (Normalized) Sig (Original) acetaminophen 500 mg oral tablet (20 sources) take 2 tablets by mouth every eight hours as needed acetaminophen (TYLENOL) 500 mg tablet Take 1,000 mg by mouth every 8 hours as needed for pain. Active Comment on above: Take 1,000 mg by tonia th every 8 hours as needed for pain. [id number] 200 actuat albuterol 0.09 mg/actuat metered dose inhaler (20 sources) beta2-Adrenergic Agonist Start: 11-24-2021 take 1 puff(s) by inhalation every six hours Albuterol Sulfate Active 2 PUFF INHALATION EVERY 6 HOURS November 24, 2021 3:19pm Start: 11-24-2021 take 1 puff(s) by in halation every six hours Albuterol Sulfate Active 2 PUFF INHALATION EVERY 6 HOURS November 24, 2021 12:00am Start: 12-15-2020 End: 10-08-2024 take 2 puff(s) by inhalation every four hours as needed albuterol HFA (VENTOLIN HFA) 90 mcg/actuation inhaler Inhale 2 Puffs as instructed every 4 hours as needed. 1 Each 2 10/09/2024 Active Comment on above: Inhale 2 Puffs as in structed every 4 hours as needed. amLODIPine 10 mg oral tablet (20 sources) Dihydropyridine Calcium Channel Juan J Start: 02-26-20 End: 08-24-19 take 1 tablet by mouth once daily amLODIPine (NORVASC) 10 mg tablet Indications: Essential hypertension Take 1 tablet by mouth once daily. 90 tablet 1 02/25/2025 08/24/2025 Active Start: 02-26-2024 End: 02-23-2025 take 1 tablet by mouth once daily amLODIPine (NORVASC) 10 mg tablet Indications: Essential hypertension Take 1 tablet by mouth once daily. 90 tablet 1 08/27/2024 02/23/2025 Active Start: 08-21-2023 End: 02-24-2024 take 1 tablet by mouth once daily amLODIPine (NORVASC) 10 mg tablet Indications: Essential hypertension Take 1 tablet by mouth once daily. 90 tablet 1 08/21/2023 02/24/2024 Discontinued Start: 10-19-2021 End: 06-24-2023 take 1 tablet by mouth once daily amLODIPine (NORVASC) 10 mg tablet Indications: Essential hypertension Take 1 tablet by mouth once daily. 90 tablet 1 12/26/2022 Active Start: 08-26-2015 End: 05-25-2022 take 5 mg by mouth once daily Amlodipine Discontinued 5 MG PO DAILY 90 September 13, 2017 6:01pm September 17, 2017 11:04pm Comment on above: Take 1 tablet by tonia th once daily. Blood-Glucose Meter monitoring kit (20 sources) Start: 03-23-2021 Blood-Glucose Meter monitoring kit Glucose Meter of Choice - Kit - Use once daily Dx: Type 2 DM - Uncontrolled E11.65 1 Each 03/23/2021 Active Start: 03-23-2021 Blood-Glucose Meter monitoring kit Glucose Meter of Choice - Kit - Use once daily Dx: Type 2 DM - Uncontrolled E11.65 1 Each 0 03/23/2021 Active Comment on above: Glucose Meter of Cho ice - Kit - Use once daily Dx: Type 2 DM - Uncontrolled E11.65 cyclobenzaprine hydrochloride 5 mg oral tablet (20 sources) Muscle Relaxant Start: 025 take 1 tablet by mouth every twelve hours as needed cyclobenzaprine (FLEXERIL) 5 mg tablet Take 1 tablet by mouth two times a day as needed for muscle spasm (Pain). 60 tablet 03/18/2025 Active Start: 10-30-2023 End: 04-10-2024 take 1 tablet by mouth every twelve hours as needed cyclobenzaprine (FLEXERIL) 5 mg tablet Take 1 tablet by mouth two times a day as needed for muscle spasm (Pain). 60 tablet 04/10/2024 Active Start: 12-28-2015 CYCLOBENZAPRIN E HCL 10 MG TABS As needed CYCLOBENZAPRINE HCL [id number] Jose Delgado MD Comment on above: Take 1 tablet by tonia two times a day as needed for muscle spasm (Pain). fluticasone propionate 0.05 mg/actuat metered dose nasal spray (20 sources) Corticosteroid Start: 2 End: 3 take 2 spray(s) by mouth once daily fluticasone (FLONASE) 50 mcg/actuation nasal spray Indications: Bacterial sinusitis Use 2 Sprays in each nostril once daily. Rinse mouth after use. 1 Each 1 09/23/2021 03/09/2023 Discontinued Start: 12-15-2019 End: 11-24-2021 Fluticasone Propionate Activ e 2 SPRAY NASAL DAILY November 24, 2021 3:19pm Comment on above: Use 2 Sprays in each nostril once daily. Rinse mouth after use. hydroCHLOROthiazide 25 mg oral tablet (20 sources) Thiazide Diuretic Start: 2022 take 1 tablet by mouth once hydroCHLOROthiazide 25 mg tablet Take 1 tablet by mouth every afternoon. 05/28/2023 Active Comment on above: Take 1 tablet by tonia th every afternoon. levothyroxine sodium 0.15 mg oral tablet (20 sources) l-Thyroxine Start: 2024 End: 2025 take 1 tablet by mouth once daily for thyroid dysfunction levothyroxine (SYNTHROID) 150 mcg tablet Take 1 tablet by mouth once daily. Take on empty stomach. For thyroid 90 tablet 1 04/02/2025 09/29/2025 Active Start: 10-09-2023 End: 10-02-2024 take 1 tablet by mouth once daily for thyroid dysfunction levothyroxine (SYNTHROID) 150 mcg tablet Take 1 tablet by mouth once daily. Take on empty stomach. For thyroid 90 tablet 1 04/05/2024 10/02/2024 Active Start: 10-11-2021 End: 09-25-2023 take 1 tablet by mouth once daily for thyroid dysfunction levothyroxine (SYNTHROID) 150 mcg tablet Take 1 tablet by mouth once daily. Take on empty stomach. For thyroid 90 tablet 1 03/29/2023 Active Start: 02-03-2021 End: 11-24-2021 take 150 ug by mouth once daily Levothyroxine Disconti nued 150 MCG PO DAILY February 03, 2021 8:30am November 24, 2021 3:18pm Start: 06-05-2019 End: 02-03-2021 take 137 ug by mouth once daily Levothyroxine Disconti nued 137 MCG PO DAILY June 05, 2019 12:00am February 03, 2021 8:31am Start: 09-22-2017 End: 06-05-2019 take 125 ug by mouth once daily Levothyroxine Disconti nued 125 MCG PO daily September 22, 2017 1:00am June 05, 2019 3:47pm Start: 01-19-2015 End: 09-22-2017 take 100 ug by mouth once daily Levothyroxine Disconti nued 100 MCG PO DAILY January 20, 2015 12:00am September 22, 2017 11:59am Start: 01-19-2015 take 1 tablet by mouth once da daniel LEVOTHYROXINE SODIUM 125 MCG TABS One tablet by mouth daily LEVOTHYROXINE SODIUM [id number] Rafael Eldridge Rivka GARCIA Start: 01-19-2015 take 1 tablet by mouth once da daniel SYNTHROID 100 MCG TABS One tablet by mouth daily LEVOTHYROXINE SODIUM [id number] Jose Delgado MD Comment on above: Take 1 tablet by tonia th once daily. Take on empty stomach. For thyroid lisinopril 20 mg oral tablet (20 sources) Angiotensin Converting Enzyme Inhibitor Start: End: take 1 tablet by mouth twice daily lisinopril (ZESTRIL) 20 mg tablet Indications: Essential hypertension Take 1 tablet by mouth two times a day. 180 tablet 1 03/10/2025 09/06/2025 Active Start: 09-04-2023 End: 03-02-2024 take 1 tablet by mouth twice daily lisinopril (ZESTRIL) 20 mg tablet Indications: Essential hypertension Take 1 tablet by mouth two times a day. 180 tablet 1 09/04/2023 03/02/2024 Active Start: 08-03-2020 End: 09-07-2022 take 1 tablet by mouth twice daily lisinopril (ZESTRIL, PRINIVIL) 20 mg tablet Indications: Essential hypertension Take 1 tablet by mouth twice daily. 180 tablet 3 09/07/2022 Active Start: 01-19-2015 take 1 tablet by tonia th once daily LISINOPRIL 40 MG TABS One tablet by mouth daily LISINOPRIL [id number] Jose Delgado MD Start: 01-19-2015 take 0.5 tablet by m outh twice daily LISINOPRIL 40 MG TABS 1/2 tablet by mouth twice daily LISINOPRIL [id number] Jose Delgado MD Start: 01-19-2015 take 1 tablet by tonia th twice daily LISINOPRIL 20 MG TABS One tablet by mouth twice daily LISINOPRIL [id number] Cong Ruby MD Start: 01-16-2015 End: 08-03-2020 take 20 mg by mouth twice daily Lisinopril Discontinue d 20 MG PO TWICE A DAY January 16, 2015 12:00am August 03, 2020 11:30am Comment on above: Take 1 tablet by tonia th twice daily. Take 1 tablet by tonia th two times a day. loratadine 10 mg oral tablet (20 sources) take 1 tablet by mouth once daily as needed loratadine (CLARITIN) 10 mg tablet Take 10 mg by mouth once daily. As needed Active Comment on above: Take 10 mg by mouth once daily. As needed nitroglycerin 0.4 mg sublingual tablet (12 sources) Nitrate Vasodilator Start: 10-11-19 End: 08-03-20 Nitroglycerin Active 0.4 MG SL every 5 to 15 minutes August 03, 2020 12:14pm until response; do not exceed 3 doses per episode Start: 03-12-2015 NITROGLYCERIN 0.4 MG SUBL 1 tablet under the tongue every 5 minutes times 3 as needed for chest pain. NITROGLYCERIN [id number] Gege Granda RN NITROGLYCERIN BUCCAL (20 sources) NITROGLYCERIN BU CCAL Place between cheek and gum. Active NITROGLYCERIN BU CCAL Place between cheek and gum. 0 Active Comment on above: Place between cheek and gum. primidone 50 mg oral tablet (20 sources) Anti-epileptic Agent Start: 05-25-2022 take 100 mg by mouth at bedtime Primidone Active 100 MG PO AT BEDTIME May 25, 2022 12:00am Start: 12-24-2021 End: 09-10-2025 take 2 tablets by mouth once daily at bedtime primidone (MYSOLINE) 50 mg tablet Indications: Tremor Take 2 tablets by mouth daily at bedtime. 180 tablet 3 09/10/2024 09/10/2025 Active Start: 10-19-2021 End: 12-24-2021 take 0.5 tablet by mouth once daily at bedtime primidone (MYSOLINE) 50 mg tablet Take 0.5 tablets by mouth daily at bedtime. 15 tablet 2 10/19/2021 12/24/2021 Discontinued Comment on above: Take 2 tablets by mo uth daily at bedtime. Take 0.5 tablets by mouth daily at bedtime. TAKE 2 TABLETS BY MO UT EVERY DAY AT BEDTIME TAKE 2 TABLETS BY MO UT AT BEDTIME propranolol hydrochloride 20 mg oral tablet (20 sources) beta-Adrenergic Juan J take 1 tablet by mouth twice daily propranolol (INDERAL) 20 mg tablet Take 20 mg by mouth two times a day. Active Comment on above: Take 20 mg by mouth two times a day. sertraline 100 mg oral tablet (20 sources) Serotonin Reuptake Inhibitor Start: 4 End: 6 take 1 tablet by mouth once daily sertraline (ZOLOFT) 100 mg tablet Indications: Mild episode of recurrent major depressive disorder Take 1 tablet by mouth once daily. 90 tablet 1 03/07/2025 09/03/2025 Active Start: 07-27-2022 End: 03-26-2023 take 1 tablet by mouth once daily sertraline (ZOLOFT) 100 mg tablet Indications: Mild episode of recurrent major depressive disorder (HCC) Take 1 tablet by mouth once daily. 90 tablet 1 12/26/2022 Active Start: 04-11-2018 End: 07-27-2022 take 50 mg by mouth once daily Sertraline Active 50 MG PO DAILY April 11, 2018 12:00am Comment on above: Take 1 tablet by tonia th once daily. terbinafine 250 mg oral tablet (17 sources) Allylamine Antifungal Start: 3 End: 3 take 1 tablet by mouth once daily terbinafine HCl (LAMISIL) 250 mg tablet Take 1 tablet by mouth once daily. 30 tablet 2 01/26/2023 04/26/2023 Active Comment on above: Take 1 tablet by tonia th once daily. Completed/Discontinued Medications Medication Drug Class(es) Dates Sig (Normalized) Sig (Original) acetaminophen 325 mg / oxyCODONE hydrochloride 5 mg oral tablet (3 sources) Opioid Agonist Start: 09-17-2017 End: 09-22-2017 take 1 tablet by mouth every six hours as needed Oxycodone-Acetamin ophen Discontinued 1 TABLET PO EVERY 6 HOURS NEEDED September 17, 2017 1:00am September 22, 2017 12:00pm aspirin 81 mg oral strip (20 sources) Platelet Aggregation Inhibitor, Nonsteroidal Anti-inflammatory Drug Start: 01-19-2015 take 1 tablet by mouth once daily ASPIRIN 81 MG TABS One tablet by mouth daily ASPIRIN [id number] Cheryl Braun RN Start: 01-19-2015 take 1 tablet by tonia th once daily ASPIRIN 81 MG TABS One tablet by mouth daily ASPIRIN [id number] Cheryl Braun RN Start: 05-14-2014 take 81 mg by mouth once daily Aspirin Active 81 MG PO DAILY@0800 May 14, 2014 12:00am take 1 tablet by tonia th once daily aspirin, enteric coated (ASPIRIN, ENTERIC COATED) 81 mg EC tablet Take 81 mg by mouth once daily. Active Comment on above: Take 81 mg by mouth once daily. cephalexin 500 mg oral capsule (3 sources) Cephalosporin Antibacterial Start: 11-18-19 End: 06-05-20 take 500 mg by mouth every six hours Cephalexin Discontinued 500 MG PO EVERY 6 HOURS 40 November 17, 2018 12:00am June 05, 2019 3:48pm ciprofloxacin 3 mg/ml ophthalmic solution (2 sources) Quinolone Antimicrobial Start: 02-15-20 End: 03-22-20 Ciprofloxacin Hcl Discontinued 1 DRP RIGHT EYE Q4H 10 February 14, 2023 12:00am March 22, 2023 11:22am 1 drp into the Right EYE; citalopram 20 mg oral tablet (6 sources) Serotonin Reuptake Inhibitor Start: 09-22-19 18 End: 04-11-20 18 take 20 mg by mouth once daily Citalopram Discontinued 20 MG PO daily September 22, 2017 1:00am April 11, 2018 3:29pm Start: 12-28-2015 take 1 tablet by tonia th once daily CITALOPRAM HYDROBROMIDE 20 MG TABS One tablet by mouth daily CITALOPRAM HYDROBROMIDE [id number] Rafael Tineo NP clopidogrel 75 mg oral tablet (6 sources) [id number] Platelet Inhibitor Start: 03-12-2015 End: 06-27-2016 take 1 tablet by mouth once daily PLAVIX 75 MG TABS One tablet by mouth daily CLOPIDOGREL BISULFATE [id number] Jose Delgado MD COLESTIPOL HCL (6 sources) Bile Acid Sequestrant Start: 01-21-2016 End: 06-27-2016 take 2 tablets by mouth twice daily COLESTID 1 GM TABS Two tablets by mouth twice daily COLESTIPOL HCL [id number] Nikki Grover Ruddy GARCIA Start: 01-21-2016 take 2 tablets by mo uth twice daily COLESTID 1 GM TABS Two tablets by mouth twice daily COLESTIPOL HCL [id number] Jose Delgado MD Start: 01-21-2016 End: 06-27-2016 take 2 tablets by mouth twice daily COLESTID 1 GM TABS Two tablets by mouth twice daily COLESTIPOL HCL [id number] Jose Delgado MD 1 ml evolocumab 140 mg/ml auto-injector (3 sources) PCSK9 Inhibitor Start: 02-03-2021 End: 11-24-2021 Evolocumab (Repatha Sureclick) 140 mg/mL pen injector Discontinued 140 MG SC every 2 weeks February 03, 2021 12:00am November 24, 2021 3:20pm ibuprofen 200 mg oral tablet (20 sources) Nonsteroidal Anti-inflammatory Drug Start: 12-24-2016 End: 10-30-2023 take 3 tablets by mouth every six hours as needed ibuprofen (MOTRIN) 200 mg tablet Take 3 tablets by mouth every 6 hours as needed for Pain (Take with food.). 0 12/24/2016 10/30/2023 Discontinued Comment on above: Take 3 tablets by [facility] every 6 hours as needed for Pain (Take with food.). 24 hr metFORMIN hydrochloride 500 mg extended release oral tablet (17 sources) Biguanide Start: 10-29-2021 End: 07-27-2022 take 2 tablets by mouth twice daily metFORMIN ER (GLUCOPHAGE XR) 500 mg 24 hr tablet Indications: Diabetes type II (HCC) Take 2 tablets by mouth twice daily. 120 tablet 5 10/29/2021 07/27/2022 Discontinued Start: 02-03-2021 End: 05-25-2022 take 1000 mg by mouth twice daily Metformin Discontinued 1000 MG PO TWICE A DAY February 03, 2021 12:00am May 25, 2022 10:39am Comment on above: Take 2 tablets by mo [facility] twice daily. 24 hr metoprolol succinate 25 mg extended release oral tablet (20 sources) beta-Adrenergic Juan J Start: 10-19-2021 End: 10-30-2023 take 0.5 tablet by mouth once daily metoprolol succinate ER (TOPROL XL) 25 mg 24 hr tablet Indications: Coronary artery disease involving [place] heart without angina pectoris, unspecified vessel or lesion type Take 0.5 tablets by mouth once daily. 45 tablet 1 10/19/2021 10/30/2023 Discontinued Start: 04-11-2018 End: 03-22-2023 take 25 mg by mouth once daily Metoprolol Succinate Di scontinued 25 MG PO DAILY November 11, 2022 12:50pm March 22, 2023 11:23am Start: 01-19-2015 [facility] METOPROLOL TARTRATE 25 MG TABS One half tablet by mouth twice daily METOPROLOL TARTRATE [id number] Cheryl Braun RN Start: 01-17-2015 End: 04-11-2018 take 12.5 mg by mouth once daily Metoprolol Succinate Discontinued 12.5 MG PO DAILY July 17, 2017 4:01pm September 17, 2017 11:04pm Start: 05-14-2014 End: 01-17-2015 take 12.5 mg by mouth once daily Metoprolol Tartrate Discontinued 12.5 MG PO DAILY May 14, 2014 12:00am January 17, 2015 3:10pm Comment on above: Take 0.5 tablets by mouth once daily. MOMETASONE FUROATE (9 sources) Corticosteroid Start: 01-19-2015 NASONEX 50 MCG/ACT SUSP One spray daily as needed MOMETASONE FUROATE [id number] Gege Granda RN Start: 01-19-2015 End: 12-28-2015 NASONEX 50 MCG/ACT SUSP One spray daily as needed MOMETASONE FUROATE [id number] Jose Delgado MD Start: 01-19-2015 NASONEX 50 MCG /ACT SUSP One spray daily MOMETASONE FUROATE [id number] Cheryl Braun RN Start: 01-19-2015 End: 12-28-2015 NASONEX 50 MCG/ACT SUSP One spray daily as needed MOMETASONE FUROATE [id number] Gege Granda RN phenazopyridine hydrochloride 97.5 mg oral tablet (3 sources) Start: 11-17-2018 End: 06-05-2019 take 99.5 mg by mouth twice daily Phenazopyridine Discontinued 99.5 MG PO TWICE A DAY November 17, 2018 12:00am June 05, 2019 3:49pm promethazine hydrochloride 25 mg oral tablet (3 sources) Phenothiazine Start: 09-17-2017 End: 09-22-2017 take 25 mg by mouth every four hours as needed Promethazine Discontinued 25 MG PO EVERY 4 HOURS NEEDED September 17, 2017 1:00am September 22, 2017 12:01pm Pumpkin Seed Extract-Soy Germ (3 sources) Start: 11-17-2018 End: 06-05-2019 take 300 mg by mouth twice daily Pumpkin Seed Extract-Soy Germ Discontinued 300 MG PO TWICE A DAY November 17, 2018 3:58pm June 05, 2019 3:49pm Start: 11-17-2018 End: 06-05-2019 take 300 mg by mouth twice daily Pumpkin Seed Extract-Soy Germ Discontinued 300 MG PO TWICE A DAY November 17, 2018 12:00am June 05, 2019 3:49pm Problems Active Problems Problem Classification Problem Date Documented Date Episodic/Chronic Abdominal pain (1 source) Epigastric pain; Translations: [Epigastric pain] 03-22-2023 Episodic Administrative/social admission (1 source) Advance directive discussed with patient; Translations: [Other specified counseling] Episodic Aortic; peripheral; and visceral artery aneurysms (3 sources) Abdominal aortic aneurysm without rupture; Translations: [Abdominal aortic aneurysm (AAA) without rupture, unspecified part (HCC)] 04-19-2024 Chronic Cardiac dysrhythmias (4 sources) Ventricular premature beats; Translations: [Ventricular premature depolarization] Chronic Cardiac dysrhythmias (3 sources) Palpitations; Translations: [Palpitations] 12-15-2019 Episodic Chronic kidney disease (20 sources) Chronic kidney disease stage 3; Translations: [CKD (chronic kidney disease), stage III] 09-14-2017 Chronic Chronic kidney disease (1 source) Chronic kidney disease; Translations: [CKD stage 3b, GFR 30-44 ml/min ([facility])] Onset: 05-14-2024 Chronic obstructive pulmonary disease and bronchiectasis (20 sources) Mild chronic obstructive pulmonary disease; Translations: [Chronic obstructive pulmonary disease, unspecified] Onset: 01-28-2023 Chronic Conditions associated with dizziness or vertigo (6 sources) Dizziness; Translations: [Dizziness and giddiness] Onset: 01-19-2015 01-19-2015 Episodic Coronary atherosclerosis and other heart disease (20 sources) Coronary arteriosclerosis in [place] artery; Translations: [Old myocardial infarction] Onset: 06-10-2015 Resolved: 08-22-2017 06-10-2015 Chronic Diabetes mellitus with complications (20 sources) Type 2 diabetes mellitus; Translations: [Type 2 diabetes mellitus with diabetic chronic kidney disease] Onset: 09-08-2023 03-15-2021 Chronic Diabetes mellitus without complication (1 source) Diabetes mellitus without complication; Translations: [Type 2 diabetes mellitus with stage 3a chronic kidney disease, without long-term current use of insulin ([facility])] Onset: 09-08-2023 Diseases of white blood cells (1 source) Leukocytosis; Translations: [Elevated white blood cell count, unspecified] 03-18-2024 Chronic Disorders of lipid metabolism (20 sources) Hyperlipidemia; Translations: [Hyperlipidemia, unspecified] Onset: 01-19-2015 01-19-2015 Chronic Essential hypertension (20 sources) Hypertensive disorder; Translations: [Essential hypertension] Onset: 01-19-2015 01-19-2015 Chronic Genitourinary congenital anomalies (20 sources) Horseshoe kidney; 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, fused and horseshoe kidney] Onset: 10-02-2017 10-02-2017 Chronic Heart valve disorders (20 sources) Non-rheumatic mitral regurgitation ; Translations: [Nonrheumatic mitral (valve) insufficiency] Onset: 10-03-2017 10-03-2017 Chronic Hypertension with complications and secondary hypertension (20 sources) Hypertensive renal disease; Translations: [Hypertensive chronic kidney disease with stage 1 through stage 4 chronic kidney disease, or unspecified chronic kidney disease] Onset: 03-15-2021 03-15-2021 Chronic Immunizations and screening for infectious disease (3 sources) Vaccination needed; Translations: [Encounter for immunization] Episodic Mood disorders (20 sources) Recurrent major depressive episodes, mild ; Translations: [Major depressive disorder, recurrent, mild] Onset: 04-20-2017 Resolved: 02-20-2018 04-20-2017 Chronic Mycoses (2 sources) Onychomycosis; Translations: [Tinea unguium] Episodic Nonspecific chest pain (8 sources) Chest discomfort; Translations: [Chest pain] Onset: 01-19-2015 01-19-2015 Episodic Other congenital anomalies (20 sources) Congenital anomaly of eye; 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, unspecified] Onset: 10-04-2023 10-04-2023 Chronic Other connective tissue disease (1 source) Falls; Translations: [Repeated falls] 09-18-2024 Episodic Other hereditary and degenerative nervous system conditions (1 source) Essential tremor; Translations: [Essential tremor] Onset: 03-18-2025 Chronic Other liver diseases (20 sources) Liver cyst; Translations: [Other specified diseases of liver] Onset: 10-03-2017 10-03-2017 Chronic Other nervous system disorders (9 sources) Tremor; Translations: [Tremor, unspecified] Episodic Other nervous system disorders (1 source) Abnormal gait; Translations: [Unspecified abnormalities of gait and mobility] 09-18-2024 Episodic Other nutritional; endocrine; and metabolic disorders (8 sources) Body mass index (BMI) 34.0-34.9, adult; Translations: [Body mass index (BMI) 35.0-35.9, adult] Onset: 03-12-2015 Resolved: 12-28-2015 12-28-2015 Chronic Other nutritional; endocrine; and metabolic disorders (1 source) Body mass index (BMI) 35.0-35.9, adult; Translations: [Body mass index (BMI) 35.0-35.9, adult] Onset: 06-10-2015 06-10-2015 Chronic Other nutritional; endocrine; and metabolic disorders (20 sources) Body mass index 40+ - severely obese; Translations: [Body mass index (BMI) 40.0-44.9, adult] Onset: 01-28-2023 Chronic Other nutritional; endocrine; and metabolic disorders (20 sources) Obese class II; Translations: [Obesity, unspecified] Onset: 10-04-2023 10-04-2023 Chronic Other nutritional; endocrine; and metabolic disorders (1 source) Body mass index (BMI) 40.0-44.9, adult; Translations: [Body mass index (BMI) 40.0-44.9, adult (HCC)] Onset: 01-28-2023 Chronic Other screening for suspected conditions (not mental disorders or infectious disease) (10 sources) Patient encounter status; Translations: [Encounter for screening mammogram for malignant neoplasm of breast] Onset: 03-18-2025 Episodic Other upper respiratory infections (3 sources) Viral upper respiratory tract infection; Translations: [Acute upper respiratory infection, unspecified] Episodic Parkinson`s disease (16 sources) Parkinsonism; Translations: [Parkinson's disease] Onset: 01-28-2023 Chronic Peripheral and visceral atherosclerosis (12 sources) Peripheral vascular disease, unspecified; Translations: [Peripheral vascular disease, unspecified] Onset: 09-18-2024 05-21-2024 Chronic Residual codes; unclassified (1 source) Procedure not done; Translations: [Procedure and treatment not carried out, unspecified reason] Episodic Substance-related disorders (3 sources) Tobacco dependence syndrome; Translations: [Nicotine dependence, unspecified, uncomplicated] Onset: 01-19-2015 01-19-2015 Chronic Substance-related disorders (20 sources) Tobacco user; Translations: [Nicotine dependence, unspecified, uncomplicated] Onset: 12-15-2020 12-15-2020 Chronic Superficial injury; contusion (5 sources) Contusion of hip; Translations: [Contusion of right hip, initial encounter] 02-14-2023 Episodic Thyroid disorders (20 sources) Hypothyroidism; Translations: [Hypothyroidism, unspecified] Onset: 02-06-2017 02-06-2017 Chronic Unclassified (2 sources) Percutaneous transluminal coronary angioplasty ; Translations: [Coronary angioplasty status] Onset: 01-19-2015 01-19-2015 Unclassified (1 source) Abdominal aortic aneurysm (AAA) without rupture, unspecified part; Translations: [Abdominal aortic aneurysm (AAA) without rupture, unspecified part] Onset: 03-18-2025 Unclassified (1 source) Abdominal aortic aneurysm (AAA) without rupture, unspecified part (HCC); Translations: [Abdominal aortic aneurysm (AAA) without rupture, unspecified part (HCC)] Onset: 05-21-2024 Unclassified (1 source) Lumbar back pain; Translations: [Lumbar back pain] Onset: 04-19-2024 Past or Other Problems Problem Classification Problem Date Documented Da te Episodic/Chronic Biliary tract disease (20 sources) Calculus of bile duct without cholangitis or cholecystitis without obstruction; Translations: [Biliary colic] Onset: 09-25-2017 09-25-2017 Episodic Coma; stupor; and brain damage (20 sources) Drowsy; Translations: [Somnolence] Onset: 10-04-2023 10-04-2023 Episodic Coronary atherosclerosis and other heart disease (3 sources) History of myocardial infarction; Translations: [Old myocardial infarction] Onset: 01-19-2015 01-19-2015 Episodic Coronary atherosclerosis and other heart disease (20 sources) Stented coronary artery; Translations: [Presence of coronary angioplasty implant and graft] Onset: 04-14-2014 Episodic Diabetes mellitus without complication (20 sources) Prediabetes; Translations: [Prediabetes] Resolved: 07-27-2022 09-14-2017 Episodic E Codes: Fall (2 sources) Fall; Translations: [Unspecified fall, initial encounter] Onset: 04-19-2024 04-19-2024 Episodic Other connective tissue disease (1 source) Repeated falls; Translations: [Falling episodes] Onset: 09-18-2024 Episodic Other nervous system disorders (1 source) Unspecified abnormalities of gait and mobility; Translations: [Abnormality of gait] Onset: 09-18-2024 Episodic Other nervous system disorders (1 source) Tremor, unspecified; Translations: [Tremor] Onset: 09-18-2024 Episodic Other non-traumatic joint disorders (20 sources) Hip pain; Translations: [Pain in left hip] Onset: 11-02-2023 10-30-2023 Episodic Other non-traumatic joint disorders (1 source) Pain in right hip; Translations: [Bilateral hip pain] Onset: 04-19-2024 Episodic Other non-traumatic joint disorders (1 source) Pain in left hip; Translations: [Bilateral hip pain] Onset: 04-19-2024 Episodic Residual codes; unclassified (20 sources) Other specified health status; Translations: [Other drug allergy] Onset: 09-12-2023 09-12-2023 Episodic Spondylosis; intervertebral disc disorders; other back problems (20 sources) Chronic low back pain; Translations: [Chronic bilateral low back pain without sciatica] Onset: 03-14-2023 03-09-2023 Episodic Results Test Name Value Interpretation Reference Range Facility CBC W Auto Differential pane l (Bld)on 03-18-2025 Basophils (Bld) [#/Vol] 0.07 10*3/uL Normal <0.11 [facility] Comment on above: Order Comment: Speci men Type: BLOOD SPECIMENOrdering Facility: [facility] Address: [address] [place] [address] Performed By: #### 5 7021-8 ####[facility] LABCLIA [id number] [place] [address] [place] Basophils/100 WBC (Bld) 0.6 % Normal [facility] Comment on above: Order Comment: Speci men Type: BLOOD SPECIMENOrdering Facility: [facility] Address: [address] [place] [address] Performed By: #### 5 7021-8 ####[facility] LABCLIA [id number] [place] [address] [place] Differential cell count method Nom (Bld) Auto Normal [facility] Comment on above: Order Comment: Speci men Type: BLOOD SPECIMENOrdering Facility: [facility] Address: [address] [place] [address] Performed By: #### 5 7021-8 ####[facility] LABCLIA [id number] [place] [id number] [place] Eosinophils (Bld) [#/Vol] 0.29 10*3/uL Normal <0.46 [facility] Comment on above: Order Comment: Speci men Type: BLOOD SPECIMENOrdering Facility: [facility] Address: [address] [place] [address] Performed By: #### 5 7021-8 ####[facility] LABCLIA [id number] [address], [facility] [place] Eosinophils/100 WBC (Bld) 2.4 % Normal [facility] Comment on above: Order Comment: Speci men Type: BLOOD SPECIMENOrdering Facility: [facility] Address: [address] [place] [address] Performed By: #### 5 7021-8 ####[facility] LABIA [id number] [place] [address] [place] Erythrocyte distribution width (RBC) [Ratio] 14.1 % Normal 11.5-15.0 [facility] Comment on above: Order Comment: Speci men Type: BLOOD SPECIMENOrdering Facility: [facility] Address: [address] [place] [address] Performed By: #### 5 7021-8 ####[facility] LABIA [id number] [place] [address] [place] Hematocrit (Bld) [Volume fraction] 39.6 % Normal 36.0-46.0 [facility] Comment on above: Order Comment: Speci men Type: BLOOD SPECIMENOrdering Facility: [facility] Address: [address] [place] [address] Performed By: #### 5 7021-8 ####[facility] LABIA [id number] [place] [address] [place] Hemoglobin (Bld) [Mass/Vol] 12.8 g/dL Normal 11.5-15.5 [facility] Comment on above: Order Comment: Speci men Type: BLOOD SPECIMENOrdering Facility: [facility] Address: [address] [place] [address] Performed By: #### 5 7021-8 ####[facility] LABIA [id number] [place] [address] [place] Immature granulocytes (Bld) [#/Vol] 0.16 10*3/uL High <0.10 [facility] Comment on above: Order Comment: Speci men Type: BLOOD SPECIMENOrdering Facility: [facility] Address: [address] [place] [address] Performed By: #### 5 7021-8 ####[facility] LABCLIA [id number] [place] [address] [place] Immature granulocytes/100 WBC (Bld) 1.3 % Normal [facility] Comment on above: Order Comment: Speci men Type: BLOOD SPECIMENOrdering Facility: [facility] Address: [address] [place] [address] Performed By: #### 5 7021-8 ####[facility] LABIA [id number] [place] [address] [place] Lymphocytes (Bld) [#/Vol] 2.36 10*3/uL Normal 1.00-4.00 [facility] Comment on above: Order Comment: Speci men Type: BLOOD SPECIMENOrdering Facility: [facility] Address: [address] [place] [address] Performed By: #### 5 7021-8 ####[facility] LABIA [id number] [place] [address] [place] Lymphocytes/100 WBC (Bld) 19.9 % Normal [facility] Comment on above: Order Comment: Speci men Type: BLOOD SPECIMENOrdering Facility: [facility] Address: [address] [place] [address] Performed By: #### 5 7021-8 ####[facility] LABIA [id number] [place] [address] [place] MCH (RBC) [Entitic mass] 33.3 pg Normal 26.0-34.0 [facility] Comment on above: Order Comment: Speci men Type: BLOOD SPECIMENOrdering Facility: [facility] Address: [address] [place] [address] Performed By: #### 5 7021-8 ####[facility] LABIA [id number] [place] [address] [place] MCHC (RBC) [Mass/Vol] 32.3 g/dL Normal 30.5-36.0 [facility] Comment on above: Order Comment: Speci men Type: BLOOD SPECIMENOrdering Facility: [facility] Address: [address] [place] [address] Performed By: #### 5 7021-8 ####[facility] LABIA [id number] [place] [address] [place] MCV (RBC) [Entitic vol] 103.1 fL High 80.0-100.0 [facility] Comment on above: Order Comment: Speci men Type: BLOOD SPECIMENOrdering Facility: [facility] Address: [address] [place] [address] Performed By: #### 5 7021-8 ####[facility] LABIA [id number] [place] [address] [place] Monocytes (Bld) [#/Vol] 0.68 10*3/uL Normal <0.87 [facility] Comment on above: Order Comment: Speci men Type: BLOOD SPECIMENOrdering Facility: [facility] Address: [address] [place] [address] Performed By: #### 5 7021-8 ####[facility] LABIA [id number] [place] [address] [place] Monocytes/100 WBC (Bld) 5.7 % Normal [facility] Comment on above: Order Comment: Speci men Type: BLOOD SPECIMENOrdering Facility: [facility] Address: [address] [place] [address] Performed By: #### 5 7021-8 ####[facility] LABIA [id number] [place] [address] [place] Neutrophils (Bld) [#/Vol] 8.31 10*3/uL High 1.45-7.50 [facility] Comment on above: Order Comment: Speci men Type: BLOOD SPECIMENOrdering Facility: [facility] Address: [address] [place] [address] Performed By: #### 5 7021-8 ####[facility] LABCLIA [id number] [place] [address] [place] Neutrophils/100 WBC (Bld) 70.1 % Normal [facility] Comment on above: Order Comment: Speci men Type: BLOOD SPECIMENOrdering Facility: [facility] Address: [address] [place] [address] Performed By: #### 5 7021-8 ####[facility] LABCLIA [id number] [place] [address] [place] Nucleated RBC (Bld) [#/Vol] 10*3/uL Normal <0.01 [facility] Comment on above: Order Comment: Speci men Type: BLOOD SPECIMENOrdering Facility: [facility] Address: [address] [place] [address] Performed By: #### 5 7021-8 ####[facility] LABIA [id number] [place] [address] [place] Nucleated RBC/100 WBC (Bld) [Ratio] 0.0 /100 WBC Normal [facility] Comment on above: Order Comment: Speci men Type: BLOOD SPECIMENOrdering Facility: [facility] Address: [address] [place] [address] Performed By: #### 5 7021-8 ####[facility] LABIA [id number] [place] [id number] [place] Platelet mean volume (Bld) [Entitic vol] 11.7 fL Normal 9.0-12.7 [facility] Comment on above: Order Comment: Speci men Type: BLOOD SPECIMENOrdering Facility: [facility] Address: [address] [place] [address] Performed By: #### 5 7021-8 ####[facility] LABIA [id number] [place] [id number] [place] Platelets (Bld) [#/Vol] 288 10*3/uL Normal 150-400 [facility] Comment on above: Order Comment: Speci men Type: BLOOD SPECIMENOrdering Facility: [facility] Address: [address] [place] [address] Performed By: #### 5 7021-8 ####[facility] LABCLIA [id number] [place] [address] [place] RBC (Bld) [#/Vol] 3.84 10*6/uL Low 3.90-5.20 [facility] Comment on above: Order Comment: Speci men Type: BLOOD SPECIMENOrdering Facility: [facility] Address: [address] [place] [address] Performed By: #### 5 7021-8 ####[facility] LABCLIA [id number] [place] [address] [place] WBC (Bld) [#/Vol] 11.87 10*3/uL High 3.70-11.00 [facility] Comment on above: Order Comment: Speci men Type: BLOOD SPECIMENOrdering Facility: [facility] Address: [address] [place] [address] Performed By: #### 5 7021-8 ####[facility] LABIA [id number] [address] [place] CNOVon 03-18-2025 CNOV Office Visit (ANNYWS ) ZORAIDA BARTH ([id number]) 1950 F Date Time Provider Department 03/18/25 9:40 AM PODLOGARZEYNEP During your visit today, we recorded the following information about you: Pulse Respiration Blood pressure Weight 64/minute 18/minute 126/74 98 kg Zeynep Schmidt APRN.[employer] MACHINE OPERATOR 03/18/2025 10:17 AM Signed 03/18/2025 Patient presents with: F/U 6 months Recording using [employer] software for draft documentation of the visit was discussed with the patient/authorized premium service representative; all questions welcomed and answered. Patient/authorized premium service representative agreed to proceed SUBJECTIVE: This is a 74 year old that is here today for Above Complaints. Diabetes: - Monitoring blood glucose levels daily, fasting readings range from 106-130 mg/dL. - Last eye exam was last year at [facility]; early cataracts noted. - Denies polydipsia, polyuria, paresthesia in extremities. Hypertension: - Monitoring blood pressure at home; readings consistent with today's measurement of 120s/70s. Abdominal Aortic Aneurysm: - Last seen by vascular surgery in May; next appointment scheduled for May. - Upcoming sonogram of legs and nerves planned. Tremor: - Managed with Primidone; no recent dosage changes. - Denies significant interference with daily activities; prefers not to increase dosage unless symptoms worsen. - Follow-up with neurology scheduled for May. Depression: - Managed with Zoloft 100 mg daily; reports effective symptom control. Back Pain: - Zoraida experiences occasional severe back cramping, recently used ibuprofen for relief. - Requests refill for Flexeril, used PRN for muscle spasms. Colorectal Cancer Screening: - Zoraida expresses interest in scheduling a colonoscopy Smoking: - Smokes 1 PPD; has not undergone lung cancer screening. Cardiology: - Last seen by Dr. Thompson at [facility] in September; follow-up scheduled for next year. - Denies chest pain or dyspnea. PAST MEDICAL HISTORY Diagnosis Date Asthma (HCC) See PFT 12/2020 Cataracts, bilateral CKD (chronic kidney disease), stage III (HCC) Coronary artery disease s/p PTCA with ALEXIS to RCA 04/27, 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 Thompson Non-rheumatic mitral regurgitation 10/03/2017 Onychomycosis Shingles Statin intolerance Tobacco use disorder ALLERGIES Metformin, Poison Rahel Extract, and Wcyrkde-Gng-Akd Reductase Inhibitors MEDICATIONS Current Outpatient Medications Medication Sig cyclobenzaprine (FLEXERIL) 5 mg tablet Take 1 tablet by mouth two times a day as needed for muscle spasm (Pain). lisinopril (ZESTRIL) 20 mg tablet Take 1 tablet by mouth two times a day. sertraline (ZOLOFT) 100 mg tablet Take 1 tablet by mouth once daily. amLODIPine (NORVASC) 10 mg tablet Take 1 tablet by mouth once daily. albuterol HFA (VENTOLIN HFA) 90 mcg/actuation inhaler Inhale 2 Puffs as instructed every 4 hours as needed. levothyroxine (SYNTHROID) 150 mcg tablet Take 1 tablet by mouth once daily. Take on empty stomach. For thyroid primidone (MYSOLINE) 50 mg tablet Take 2 tablets by mouth daily at bedtime. Lancets Test blood sugar(s) 1 times daily. Dx: Type 2 DM - Uncontrolled E11.65 Insulin: No blood sugar diagnostic (BLOOD GLUCOSE TEST) test strip Test blood sugar(s) 1 times daily. Dx: Type 2 DM - Uncontrolled E11.65 Insulin: No propranolol (INDERAL) 20 mg tablet Take 20 mg by mouth two times a day. acetaminophen (TYLENOL) 500 mg tablet Take 1,000 mg by mouth every 8 hours as needed for pain. loratadine (CLARITIN) 10 mg tablet Take 10 mg by mouth once daily. As needed hydroCHLOROthiazide 25 mg tablet Take 1 tablet by mouth every afternoon. Blood-Glucose Meter monitoring kit Glucose Meter of Choice - Kit - Use once daily Dx: Type 2 DM - Uncontrolled E11.65 aspirin, enteric coated (ASPIRIN, ENTERIC COATED) 81 mg EC tablet Take 81 mg by mouth once daily. NITROGLYCERIN BUCCAL Place between cheek and gum. No current facility-administered medications for this visit. Medications and allergies reviewed by this provider. SOCIAL HISTORY Social History Tobacco Use Smoking status: Every Day Current packs/day: 1.00 Average packs/day: 1 pack/day for 55.9 years (55.9 ttl pk-yrs) Types: Cigarettes Start date: 08/14/1969 Smokeless tobacco: Never Vaping Use Vaping status: Never Used Substance Use Topics Alcohol use: No Comment: Rarely Drug use: No REVIEW OF SYSTEMS OBJECTIVE: BP 126/74 Pulse 64 Resp 18 Wt 98 kg (216 lb) SpO2 96% BMI 39.15 kg/m? . Vital signs reviewed by this provider. GENERAL: NAD, alert and oriented. SKIN: Unremarkable, no rash or skin lesions to exposed skin EYES: conjun (more content not included)... Normal [facility] Comprehensive metabolic 2000 panelon 03-18-2025 Albumin [Mass/Vol] 4.3 g/dL Normal 3.9-4.9 [facility] Comment on above: Order Comment: Speci men Type: BLOOD SPECIMENOrdering Facility: [facility] Address: [facility] [place] [address] Performed By: #### 3 016-3, ####[facility] LABCLIA [id number] [place] [id number] [place] ALP [Catalytic activity/Vol] 78 U/L Normal 34-123 [facility] Comment on above: Order Comment: Speci men Type: BLOOD SPECIMENOrdering Facility: [facility] Address: [address] [place] [address] Performed By: #### 3 -3, ####[facility] LABCLIA [id number] [address] [address] [place] ALT [Catalytic activity/Vol] 8 U/L Normal 7-38 [facility] Comment on above: Order Comment: Speci men Type: BLOOD SPECIMENOrdering Facility: [facility] Address: [address] [place] [address] Performed By: #### 3 016-3, ####[facility] LABCLIA [id number] [address] [address] [place] Anion gap [Moles/Vol] 12 mmol/L Normal 8-15 [facility] Comment on above: Order Comment: Speci men Type: BLOOD SPECIMENOrdering Facility: [facility] Address: [address] [place] [address] Performed By: #### 3 016-3, 37538-0 ####[facility] LABCLIA [id number] [address] [address] [place] AST [Catalytic activity/Vol] 16 U/L Normal 13-35 [facility] Comment on above: Order Comment: Speci men Type: BLOOD SPECIMENOrdering Facility: [facility] Address: [address] [place] [address] Performed By: #### 3 016-3, ####[facility] LABCLIA [id number] [facility] [place] [address] [place] Bilirubin [Mass/Vol] 0.3 mg/dL Normal 0.2-1.3 [facility] Comment on above: Order Comment: Speci men Type: BLOOD SPECIMENOrdering Facility: [facility] Address: [address] [place] [address] Performed By: #### 3 016-3, ####[facility] LABCLIA [id number] [place] [address] [place] Calcium [Mass/Vol] 9.7 mg/dL Normal 8.5-10.2 [facility] Comment on above: Order Comment: Speci men Type: BLOOD SPECIMENOrdering Facility: [facility] Address: [address] [place] [address] Performed By: #### 3 016-3, ####[facility] LABCLIA [id number] [place] [address] [place] Chloride [Moles/Vol] 105 mmol/L Normal 98-107 [facility] Comment on above: Order Comment: Speci men Type: BLOOD SPECIMENOrdering Facility: [facility] Address: [address] [place] [address] Performed By: #### 3 016-3, ####[facility] LABCLIA [id number] [facility] [place] [place] [id number] [place] CO2 [Moles/Vol] 21 mmol/L Low 22-30 [facility] Comment on above: Order Comment: Speci men Type: BLOOD SPECIMENOrdering Facility: [facility] Address: [address] [place] [address] Performed By: #### 3 016-3, 09833-1 ####[facility] [id number] [place] [id number] [place] Creatinine [Mass/Vol] 1.28 mg/dL High 0.58-0.96 [facility] Comment on above: Order Comment: Speci men Type: BLOOD SPECIMENOrdering Facility: [facility] Address: [address] [place] [address] Performed By: #### 3 016-3, 40162-3 ####[facility] [id number] [place] [address] [place] eGFRcr SerPlBld CKD-EPI 2020 45 mL/min/1.73m??? Low >=60 [facility] Comment on above: Order Comment: Mayrai men Type: BLOOD SPECIMENOrdering Facility: [facility] Address: [address] [place] [address] Result Comment: Gala mated Glomerular Filtration Rate (eGFR) is calculated using the 2020 CKD-EPI creatinine equation. This equation utilizes serum creatinine, sex, and age as parameters. The creatinine assay has traceable calibration to isotope dilution-mass spectrometry. Refer to KDIGO guidelines for clinical interpretation. In patients with unstable renal function, e.g. those with acute kidney injury, the eGFR may not accurately reflect actual GFR. Performed By: #### 3 016-3, 74080-2 ####[facility] LABIA [id number] [place] [id number] [place] Glucose [Mass/Vol] 134 mg/dL High 74-99 [facility] Comment on above: Order Comment: Speci men Type: BLOOD SPECIMENOrdering Facility: [facility] Address: [address] [place] [address] Result Comment: The [place] Diabetes Association (ADA) provides guidance for cutoff values for fasting glucose and random glucose. The ADA defines fasting as no caloric intake for at least 8 hours. Fasting plasma glucose results between 100 to 125 mg/dL indicate increased risk for diabetes (prediabetes). Fasting plasma glucose results greater than or equal to 126 mg/dL meet the criteria for diagnosis of diabetes. In the absence of unequivocal hyperglycemia, results should be confirmed by repeat testing. In a patient with classic symptoms of hyperglycemia or hyperglycemic crisis, random plasma glucose results greater than or equal to 200 mg/dL meet the criteria for diagnosis of diabetes. Reference: Standards of Medical Care in Diabetes 2016, [place] Diabetes Association. Diabetes Care. 2016.39(Suppl 1). Performed By: #### 3 -3, ####[facility] LABCLIA [id number] [address] [address] [place] Potassium [Moles/Vol] 5.1 mmol/L Normal 3.7-5.1 [facility] Comment on above: Order Comment: Speci men Type: BLOOD SPECIMENOrdering Facility: [facility] Address: [address] [place] [address] Performed By: #### 3 , ####[facility] LABCLIA [id number] [address] [address] [place] Protein [Mass/Vol] 7.6 g/dL Normal 6.3-8.0 [facility] Comment on above: Order Comment: Speci men Type: BLOOD SPECIMENOrdering Facility: [facility] Address: [address] [place] [address] Performed By: #### 3 , ####[facility] LABCLIA [id number] [address] [address] [place] Sodium [Moles/Vol] 138 mmol/L Normal 136-144 [facility] Comment on above: Order Comment: Speci men Type: BLOOD SPECIMENOrdering Facility: [facility] Address: [address] [place] [address] Performed By: #### 3 0163, ####[facility] LABCLIA [id number] [address] [address] [place] Urea nitrogen [Mass/Vol] 27 mg/dL High 7-21 [facility] Comment on above: Order Comment: Uzma collado Type: BLOOD SPECIMENOrdering Facility: [facility] Address: [address] [place] [address] Performed By: #### 3 016-3, 57553-5 ####[facility] LABCLIA [id number] [place] [address] [place] HbA1c (Bld)on 03-18-2025 Average glucose Estimated from glycated hemoglobin (Bld) [Mass/Vol] 151 mg/dL Normal [facility] Comment on above: Order Comment: Uzma collado Type: BLOOD SPECIMENOrdering Facility: [facility] Address: [address] [place] [address] Result Comment: eAG: (Estimated average glucose) is a calculated value from HgbA1c and is premium service representative of the average blood glucose level in the last 2-3 month period. Performed By: #### 5 5454-3 ####[facility] LABCLIA [id number] [place] [address] [place] HbA1c (Bld) [Mass fraction] 6.9 % High 4.3-5.6 [facility] Comment on above: Order Comment: Uzma collado Type: BLOOD SPECIMENOrdering Facility: [facility] Address: [address] [place] [address] Result Comment: Amer ican Diabetes Association guidelines indicate that patients with HgbA1c in the range 5.7-6.4% are at increased risk for development of diabetes, and intervention by lifestyle modification may be beneficial. HgbA1c greater or equal to 6.5% is considered diagnostic of diabetes. Performed By: #### 5 5454-3 ####[facility] LABCLIA [id number] [place] [id number] [place] TSH SerPl-aCncon 03-18-2025 TSH Qn 3.980 m[IU]/L Normal 0.270-4.20 0 [facility] Comment on above: Order Comment: Speci men Type: BLOOD SPECIMENOrdering Facility: [facility] Address: [address] [place] [address] Performed By: #### 3 016-3, 81770-0 ####[facility] LABCLIA [id number] [id number] [place] [address] [place] Cardiology Visit Reporton Cardiology Visit Report [facility] [address] [place] [address] OFFICE VISIT Date of Service: 10/08/24 MR#: [id number] Acct: [id number] Name: ZORAIDA BARTH Rep #: [id number] : 1950 Provider: Dr. Jaguar mccullough MD Age/Sex: 74/F Location[place] [facility] [place] Status: Signed HPI HPI History of Present Illness Details: Patient is a 74-year-old white female that comes in today for monitoring of her cardiovascular status. Patient carries a history of known coronary disease status post remote stenting of the right coronary artery in 2013. She had presented with a nauseated mid retrosternal sensation. This led to discovering his critical disease in the right coronary artery which was intervened upon. She denies any recurrence of those symptoms. The patient has a history of hyperlipidemia which has been difficult to control she is intolerant to all statins and Zetia. She was trialed on Repatha but stopped it due to financial constraints and the fact that she tells me it never really impacted her LDL cholesterol. Patient also has a history of hypertension that has been treated by the primary service. The patient continues to smoke. The patient was recently evaluated for an abdominal aortic aneurysm by the [facility] vascular department. She saw a female vascular surgeon but does not remember her name. She reports to me that the surgeon told her that her abdominal aorta was slightly enlarged wider than normal but was not to the point that needed intervention either percutaneously are open. She is to be followed up in a year with ultrasound through the [facility]. They are also in the process of evaluating her lower extremities. Currently the patient is dealing with quite a few psychosocial issues within her family both of her sons are going through divorce's. 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 Required: No Accompanied by: Self Is patient in pain?: No Allergies Kwfemrz-REW-BxU Reductase Inhibitor (Mmbutai-Nxi-Ebt Reductase Inhibitor) Allergy (Unknown, Verified 10/08/24 14:08) Other Medications ???Medication ???Instructions ???Recorded ???Confirmed ???Type aspirin 81 mg chewable tablet 81 mg PO DAILY@0800 "BLOOD THINNER 05/14/14 10/08/24 History sertraline 50 mg tablet 50 mg PO DAILY 04/11/18 10/08/24 H istory lisinopril 20 mg tablet 20 mg PO BID 08/03/20 10/08/24 His tory nitroglycerin 0.4 mg sublingual 0.4 mg sublingual Q5-15M PRN chest 08/03/20 10/08/24 Rx tablet pain #25 tabs albuterol sulfate 90 mcg/actuation 2 puff inhalation Q6H PRN 10/08/24 History aerosol inhaler shortness of breath fluticasone propionate 50 2 spray NASAL DAILY PRN nasal 11/1210/08/24 History mcg/actuation nasal congestion spray,suspension levothyroxine 150 mcg tablet 150 mcg PO DAILY 11/24/21 10/08/24 History amlodipine 10 mg tablet 10 mg PO DAILY 05/25/22 10/08/24 H istory primidone 50 mg tablet 100 mg PO QHS 05/25/22 10/08/24 Hi story hydrochlorothiazide 25 mg tablet 25 mg PO DAILY #90 TABLETS 4 10/08/24 Rx propranolol 20 mg tablet 20 mg PO BID #180 tabs 04/10/24 Rx Have you fallen in the past year?: Yes PFSH Medical History (Updated 10/08/24 @ 14:[address] Jaguar Thompson MD) Hypothyroidism COPD (chronic obstructive pulmonary disease) Presence of stent in coronary artery ( 04/14/14) Atherosclerotic heart disease of [place] coronary artery without angina pectoris Old myocardial infarction HLD (hyperlipidemia) Dizziness PVC (premature ventricular contraction) Status post myocardial infarction of inferior wall Palpitations Surgical History Presence of coronary angioplasty implant and graft ( 04/14/14) History of cholecystectomy Family History Father CAD (coronary artery disease) Mother CAD (coronary artery disease) Sister Afib Social History Smoking Status: Current every day smoker tobacco type: cigarettes alcohol intake: current Alcohol type: wine substance use type: does not use caffeine: Yes Type: carbonated beverages what type of physical activity do you participate in: aerobics and other details: TaiChi frequency: 1-2 times per week duration: 15-30 minutes/day seatbelt use: always do you feel safe at home: Yes ROS Const Const: Negati (more content not included)... Normal [facility] Comprehensive metabolic 2000 panelon 09-21-2024 Albumin [Mass/Vol] 4.1 g/dL Normal 3.9-4.9 [facility] Comment on above: Order Comment: Speci men Type: BLOOD SPECIMENOrdering Facility: [facility] Address: [address] [place] [address] Performed By: #### 2 4331-1, 73135-7 ####[facility] LABCLIA [id number] [place] [address] [place] ALP [Catalytic activity/Vol] 85 U/L Normal 34-123 [facility] Comment on above: Order Comment: Speci men Type: BLOOD SPECIMENOrdering Facility: [facility] Address: [address] [place] [address] Performed By: #### 2 4331-1, 02357-5 ####[facility] LABCLIA [id number] [place] [address] [place] ALT [Catalytic activity/Vol] 5 U/L Low 7-38 [facility] Comment on above: Order Comment: Speci men Type: BLOOD SPECIMENOrdering Facility: [facility] Address: [address] [place] [id number] Performed By: #### 2 4331-1, 76753-2 ####[facility] LABCLIA [id number] [address] [address] [place] Anion gap [Moles/Vol] 12 mmol/L Normal 8-15 [facility] Comment on above: Order Comment: Speci men Type: BLOOD SPECIMENOrdering Facility: [facility] Address: [address] [place], [place] [address] Performed By: #### 2 4331-1, 98089-4 ####[facility] LABCLIA [id number] [place] [address] [place] AST [Catalytic activity/Vol] 13 U/L Normal 13-35 [facility] Comment on above: Order Comment: Speci men Type: BLOOD SPECIMENOrdering Facility: [facility] Address: [address] [place] [address] Performed By: #### 2 4331-1, 87048-7 ####[facility] LABCLIA [id number] [place] [address] [place] Bilirubin [Mass/Vol] mg/dL Low 0.2-1.3 [facility] Comment on above: Order Comment: Speci men Type: BLOOD SPECIMENOrdering Facility: [facility] Address: [address] [place], [place] [address] Performed By: #### 2 4331-1, 43509-7 ####[facility] LABCLIA [id number] [place] [id number] [place] Calcium [Mass/Vol] 9.5 mg/dL Normal 8.5-10.2 [facility] Comment on above: Order Comment: Speci men Type: BLOOD SPECIMENOrdering Facility: [facility] Address: [address] [place], [place] [address] Performed By: #### 2 4331-1, 63477-7 ####[facility] LABCLIA [id number] [place] [address] [place] Chloride [Moles/Vol] 103 mmol/L Normal 98-107 [facility] Comment on above: Order Comment: Speci men Type: BLOOD SPECIMENOrdering Facility: [facility] Address: [address] [place] [address] Performed By: #### 2 4331-1, 48139-7 ####[facility] LABIA [id number] [place] [address] [place] CO2 [Moles/Vol] 25 mmol/L Normal 22-30 [facility] Comment on above: Order Comment: Speci men Type: BLOOD SPECIMENOrdering Facility: [facility] Address: [address] [place] [address] Performed By: #### 2 4331-1, 83937-1 ####[facility] LABIA [id number] [place] [address] [place] Creatinine [Mass/Vol] 1.26 mg/dL High 0.58-0.96 [facility] Comment on above: Order Comment: Speci men Type: BLOOD SPECIMENOrdering Facility: [facility] Address: [address] [place] [address] Performed By: #### 2 4331-1, 01728-3 ####[facility] LABIA [id number] [place] [address] [place] Creatinine and Glomerular filtration rate.predicted panel (S/P/Bld) 45 mL/min/1.73m??? Low >=60 [facility] Comment on above: Order Comment: Speci men Type: BLOOD SPECIMENOrdering Facility: [facility] Address: [address] [place] [address] Result Comment: Gala mated Glomerular Filtration Rate (eGFR) is calculated using the 2020 CKD-EPI creatinine equation. This equation utilizes serum creatinine, sex, and age as parameters. The creatinine assay has traceable calibration to isotope dilution-mass spectrometry. Refer to KDIGO guidelines for clinical interpretation. In patients with unstable renal function, e.g. those with acute kidney injury, the eGFR may not accurately reflect actual GFR. Performed By: #### 2 4331-, ####[facility] LABCLIA [id number] [address] [address] [place] Glucose [Mass/Vol] 119 mg/dL High 74-99 [facility] Comment on above: Order Comment: Uzma collado Type: BLOOD SPECIMENOrdering Facility: [facility] Address: [address] [place] [address] Result Comment: The [place] Diabetes Association (ADA) provides guidance for cutoff values for fasting glucose and random glucose. The ADA defines fasting as no caloric intake for at least 8 hours. Fasting plasma glucose results between 100 to 125 mg/dL indicate increased risk for diabetes (prediabetes). Fasting plasma glucose results greater than or equal to 126 mg/dL meet the criteria for diagnosis of diabetes. In the absence of unequivocal hyperglycemia, results should be confirmed by repeat testing. In a patient with classic symptoms of hyperglycemia or hyperglycemic crisis, random plasma glucose results greater than or equal to 200 mg/dL meet the criteria for diagnosis of diabetes. Reference: Standards of Medical Care in Diabetes 2016, [place] [employer] Association. Diabetes Care. 2016.39(Suppl 1). Performed By: #### 2 4331-, ####[facility] LABCLIA [id number] [place] [id number] [place] Potassium [Moles/Vol] 4.6 mmol/L Normal 3.7-5.1 [facility] Comment on above: Order Comment: Uzma collado Type: BLOOD SPECIMENOrdering Facility: [facility] Address: [address] [place] [address] Performed By: #### 2 4331-, ####[facility] LABCLIA [id number] [address] [address] [place] Protein [Mass/Vol] 6.9 g/dL Normal 6.3-8.0 [facility] Comment on above: Order Comment: Speci men Type: BLOOD SPECIMENOrdering Facility: [facility] Address: [address] [place] [address] Performed By: #### 2 4331-1, 94458-5 ####[facility] LABCLIA [id number] [place] [address] [place] Sodium [Moles/Vol] 140 mmol/L Normal 136-144 [facility] Comment on above: Order Comment: Speci men Type: BLOOD SPECIMENOrdering Facility: [facility] Address: [address] [place] [address] Performed By: #### 2 4331-1, 47088-7 ####[facility] LABCLIA [id number] [place] [address] [place] Urea nitrogen [Mass/Vol] 23 mg/dL High 7-21 [facility] Comment on above: Order Comment: Speci men Type: BLOOD SPECIMENOrdering Facility: [facility] Address: [address] [place] [address] Performed By: #### 2 4331-1, 45327-8 ####[facility] LABCLIA [id number] [place] [address] [place] HbA1c (Bld)on 09-21-2024 Average glucose Estimated from glycated hemoglobin (Bld) [Mass/Vol] 143 mg/dL Normal [facility] Comment on above: Order Comment: Speci men Type: BLOOD SPECIMENOrdering Facility: [facility] Address: [address] [place] [address] Result Comment: eAG: (Estimated average glucose) is a calculated value from HgbA1c and is premium service representative of the average blood glucose level in the last 2-3 month period. Performed By: #### 5 5454-3 ####[facility] LABCLIA [id number] [place] [address] [place] HbA1c (Bld) [Mass fraction] 6.6 % High 4.3-5.6 [facility] Comment on above: Order Comment: Mayrai men Type: BLOOD SPECIMENOrdering Facility: [facility] Address: [address] [place] [address] Result Comment: Amer ican Diabetes Association guidelines indicate that patients with HgbA1c in the range 5.7-6.4% are at increased risk for development of diabetes, and intervention by lifestyle modification may be beneficial. HgbA1c greater or equal to 6.5% is considered diagnostic of diabetes. Performed By: #### 5 5454-3 ####[facility] LABCLIA [id number] [place] [address] [place] Lipid 1996 panelon 5 Cholesterol [Mass/Vol] 265 mg/dL High <200 [facility] Comment on above: Order Comment: Uzma men Type: BLOOD SPECIMENOrdering Facility: [facility] Address: [address] [place] [address] Result Comment: <200 mg/dL, Desirable 200-239 mg/dL, Borderline high >239 mg/dL, High Performed By: #### 2 4331-1, 15667-7 ####[facility] LABCLIA [id number] [address] [place] Cholesterol in HDL [Mass/Vol] 30 mg/dL Low >39 [facility] Comment on above: Order Comment: Uzma men Type: BLOOD SPECIMENOrdering Facility: [facility] Address: [address] [place] [address] Result Comment: 40-5 9 mg/dL, Acceptable >59 mg/dL, High: Negative risk factor for coronary heart disease <40 mg/dL, Low: Positive risk factor for coronary heart disease Performed By: #### 2 4331-1, 76607-0 ####[facility] LABCLIA [id number] [address] [place] Cholesterol in LDL [Mass/Vol] 197 mg/dL High <100 [facility] Comment on above: Order Comment: Speci men Type: BLOOD SPECIMENOrdering Facility: [facility] Address: [address] [place] [address] Result Comment: <100 mg/dL, Optimal 100-129 mg/dL, Near optimal/above optimal 130-159 mg/dL, Borderline high 160-189 mg/dL, High >189 mg/dL, Very high Secondary prevention optimal LDL Cholesterol levels are recommended to be < 70 mg/dL Performed By: #### 2 4331-1, 94138-6 ####[facility] LABCLIA [id number] [place] [address] [place] Cholesterol in LDL/Cholesterol in HDL [Mass ratio] 6.57 {ratio} High <2.54 [facility] Comment on above: Order Comment: Speci men Type: BLOOD SPECIMENOrdering Facility: [facility] Address: [address] [place] [address] Result Comment: Refe rence: 1. National Cholesterol Education Program ATP III Guideline At-A-Glance Quick Desk Reference: National Heart, Lung, and Blood [place]. National Institutes of Health. 2001: NIH Publication No. 01-3305. 2. An International Atherosclerosis Society position paper: global recommendations for the management of dyslipidemia: executive summary, Atherosclerosis. 2014: 232(2):410-413. Performed By: #### 2 4331-1, 07195-9 ####[facility] LABIA [id number] [place] [address] [place] Cholesterol in VLDL [Mass/Vol] 38 mg/dL High <30 [facility] Comment on above: Order Comment: Speci men Type: BLOOD SPECIMENOrdering Facility: [facility] Address: [address] [place] [address] Performed By: #### 2 4331-1, 32332-8 ####[facility] LABCLIA [id number] [place] [address] [place] Cholesterol non HDL [Mass/Vol] 235 mg/dL High <130 [facility] Comment on above: Order Comment: Speci men Type: BLOOD SPECIMENOrdering Facility: [facility] Address: [address] [place] [address] Result Comment: <130 mg/dL, Optimal 130-159 mg/dL, Near optimal/above optimal 160-189 mg/dL, Borderline high 190-219 mg/dL, High >219 mg/dL, Very high Secondary prevention optimal non HDL Cholesterol levels are recommended to be <100 mg/dL Performed By: #### 2 4331-1, ####[facility] LABCLIA [id number] [place] [address] [place] Cholesterol.total/C holesterol in HDL [Mass ratio] 8.83 {ratio} High <5.10 [facility] Comment on above: Order Comment: Speci men Type: BLOOD SPECIMENOrdering Facility: [facility] Address: [address] [place] [address] Performed By: #### 2 4331-1, ####[facility] LABCLIA [id number] [place] [address] [place] FASTING TIME 12 hrs Normal [facility] Comment on above: Order Comment: Speci men Type: BLOOD SPECIMENOrdering Facility: [facility] Address: [address] [place] [address] Performed By: #### 2 4331-1, ####[facility] LABCLIA [id number] [place] [address] [place] Triglyceride [Mass/Vol] 189 mg/dL High <150 [facility] Comment on above: Order Comment: Speci men Type: BLOOD SPECIMENOrdering Facility: [facility] Address: [address] [place] [address] Result Comment: <150 mg/dL, Normal 150-199 mg/dL, Borderline high 200-499 mg/dL, High >499 mg/dL, Very high Performed By: #### 2 4331-1, ####[facility] LABCLIA [id number] [place] [id number] [place] CNOVon 09-18-2024 [facility] ZORAIDA BARTH ([id number]) 1950 F Date Time Provider Department 09/18/24 11:20 AM ZEYNEP SCHMIDT During your visit today, we recorded the following information about you: Pulse Respiration Blood pressure Weight 70/minute 18/minute 98/62 96.8 kg Zeynep Schmidt APRN.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 Since last office visit has been in good health without ER visits or hospitalizations. DIABETES MELLITUS: Since our last visit she denies excessive thirst or increased frequency of urination, chest pain or dyspnea , numbness, tingling or pain in extremities, new or unusual visual symptoms, low sugar/hypoglycemic reactions, weight loss/gain, lightheadedness/dizziness, and bowel changes/loose stools Follows a diabetic diet most of the time. She reports checking her glucose on a once a day schedule with sugars in the fasting less than 150 range. Patient's last HgA1C was Hemoglobin A1C (%) Date Value 03/06/2024 6.6 09/06/2023 6.5 09/14/2021 6.3 03/12/2021 6.6 ) Last Ophthalmology exam was within the past 12 months CKD: Following with nephrology for CKD with last office visit on 05/14/2024. Recommended follow-up in 6 months. Has not scheduled. Tries to eat low salt diet and avoids NSAID products HTN: Patient is compliant with meds Yes Monitors bp at home: No. Denies side effects: Yes. Chest pain: No. Dyspnea: No. Edema: No. Palpitations: No. Syncope: No. Headache: No. Dizziness: No. HYPOTHYROIDISM: taking synthroid as prescribed without side effects Tobacco use: continue to smoke 1 pack of cigarettes a day. No desire to quit at this time. Has not complete lung cancer screening Followed up with vascular surgery for hx of AAA on 05/21/2024. No medication changes made at visit. Advised to quit smoking. Recommended follow-up in one year. Denies abdominal or back pain Following with neurology for hx of tremor. Last office visit on 05/15/2024. No medication changes made at that time. Has upcoming follow-up on 05/16/2025. CAD: follows with [facility] cardiology. Patient reports follow-up but not sure when she saw them last. Denies SOB, dyspnea, orthopnea, cough, chest pain or palpitations. PAST MEDICAL HISTORY Diagnosis Date Asthma See PFT 12/2020 Cataracts, bilateral CKD (chronic kidney disease), stage III (HCC) Coronary artery disease s/p PTCA with ALEXIS to RCA 04/27, 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 Thompson Non-rheumatic mitral regurgitation 10/03/2017 Onychomycosis Shingles Statin intolerance Tobacco use disorder ALLERGIES Metformin, Poison Rahel Extract, and Evaqlwt-Jzr-Jtx Reductase Inhibitors MEDICATIONS Current Outpatient Medications Medication Sig primidone (MYSOLINE) 50 mg tablet Take 2 tablets by mouth daily at bedtime. lisinopril (ZESTRIL) 20 mg tablet Take 1 tablet by mouth two times a day. sertraline (ZOLOFT) 100 mg tablet Take 1 tablet by mouth once daily. amLODIPine (NORVASC) 10 mg tablet Take 1 tablet by mouth once daily. Lancets Test blood sugar(s) 1 times daily. Dx: Type 2 DM - Uncontrolled E11.65 Insulin: No blood sugar diagnostic (BLOOD GLUCOSE TEST) test strip Test blood sugar(s) 1 times daily. Dx: Type 2 DM - Uncontrolled E11.65 Insulin: No cyclobenzaprine (FLEXERIL) 5 mg tablet Take 1 tablet by mouth two times a day as needed for muscle spasm (Pain). levothyroxine (SYNTHROID) 150 mcg tablet Take 1 tablet by mouth once daily. Take on empty stomach. For thyroid propranolol (INDERAL) 20 mg tablet Take 20 mg by mouth two times a day. acetaminophen (TYLENOL) 500 mg tablet Take 1,000 mg by mouth every 8 hours as needed for pain. loratadine (CLARITIN) 10 mg tablet Take 10 mg by mouth once daily. As needed hydroCHLOROthiazide 25 mg tablet Take 1 tablet by mouth every afternoon. albuterol HFA (VENTOLIN HFA) 90 mcg/actuation inhaler Inhale 2 Puffs as instructed every 4 hours as needed. Blood-Glucose Meter monitoring kit Glucose Meter of Choice - Kit - Use once daily Dx: Type 2 DM - Uncontrolled E11.65 aspirin, enteric coated (ASPIRIN, ENTERIC COATED) 81 mg EC tablet Take 81 mg by mouth once daily. NITROGLYCERIN BUCCAL Place between cheek and gum. No current facility-administered medications for this visit. Medications and allergies reviewed by this provider. SOCIAL HISTORY Social History Tobacco Use Smoking status: Every Day Current packs/day: 1.00 Average packs/day: 1 pack/day for 55.4 years (55.4 ttl pk-yrs) Types: Cigarettes Start date: 08/14/1969 Smokeless tobacco: Never Vaping Use Vaping status: (more content not included)... Normal [facility] Marissa 07-25-2024 [facility] ([facility]) ZORAIDA BARTH ([id number]) 1950 F Date Time Provider Department 07/25/24 DEAN DUBOIS [facility] During your visit today, we recorded the following information about you: Destiny eRnee 07/25/2024 12:38 PM Signed 05/16/25 Mya appt changed to 11:30AM. 1st attempt to inform pt, sent message. Lance Manuel 07/29/2024 8:00 AM Signed Pt read Allergies As of Date: 07/25/2024 Noted Allergy Reaction METFORMIN 07/27/2022 8 - GI Upset POISON RAHEL EXTRACT 12/24/2021 14 - Other: See Comments Comments: Severe rash [id number] REDUCTASE INHIBIT*09/05/2012 14 - Other: See Comments Comments: cholesterol medications cause liver pain Date Reviewed: 05/21/2024 Reviewed by: Charlette Gomez RN - Fully Assessed Reason for Visit: Appointment [[id number]] Prescriptions as of 07/30/2024 - Lancets Test blood sugar(s) 1 times daily. Dx: Type 2 DM - Uncontrolled Insulin: No - blood sugar diagnostic (BLOOD GLUCOSE TEST) test strip Test blood sugar(s) 1 times daily. Dx: Type 2 DM - Uncontrolled Insulin: No - cyclobenzaprine (FLEXERIL) 5 mg tablet Take 1 tablet by mouth two times a day as needed for muscle spasm (Pain). - levothyroxine (SYNTHROID) 150 mcg tablet Take 1 tablet by mouth once daily. Take on empty stomach. For thyroid - sertraline (ZOLOFT) 100 mg tablet Take 1 tablet by mouth once daily. - lisinopril (ZESTRIL) 20 mg tablet Take 1 tablet by mouth two times a day. - amLODIPine (NORVASC) 10 mg tablet Take 1 tablet by mouth once daily. - propranolol (INDERAL) 20 mg tablet Take 20 mg by mouth two times a day. - acetaminophen (TYLENOL) 500 mg tablet Take 1,000 mg by mouth every 8 hours as needed for pain. - loratadine (CLARITIN) 10 mg tablet Take 10 mg by mouth once daily. As needed - primidone (MYSOLINE) 50 mg tablet Take 2 tablets by mouth daily at bedtime. - hydroCHLOROthiazide 25 mg tablet Take 1 tablet by mouth every afternoon. - albuterol HFA (VENTOLIN HFA) 90 mcg/actuation inhaler Inhale 2 Puffs as instructed every 4 hours as needed. - Blood-Glucose Meter monitoring kit Glucose Meter of Choice - Kit - Use once daily Dx: Type 2 DM - Uncontrolled - aspirin, enteric coated (ASPIRIN, ENTERIC COATED) 81 mg EC tablet Take 81 mg by mouth once daily. - NITROGLYCERIN BUCCAL Place between cheek and gum. 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*04/20/2017 Coronary artery disease [I25.10] 08/22/2017 Prediabetes [R73.03] 07/27/2022 Stage 3a chronic kidney disease (HCC) [N18.31] Biliary colic [K80.50] 09/25/2017 Hyperlipidemia [E78.5] 10/02/2017 Gallstones [K80.20] 10/02/2017 Stented coronary artery [Z95.5] 10/02/2017 Horseshoe kidney [Q63.1] 10/02/2017 Depression [F32.A] 10/02/2017 02/20/2018 Non-rheumatic mitral regurgitation [I34.0] 10/03/2017 Liver cyst [K76.89] 10/03/2017 Tobacco use disorder [F17.200] Type 2 diabetes mellitus with stage 3a chronic * Hypertensive kidney disease with stage 3a chron*03/15/2021 Mild chronic obstructive pulmonary disease (HCC*01/28/2023 Body mass index (BMI) 40.0-44.9, adult (HCC) [Z*01/28/2023 Chronic bilateral low back pain with bilateral *03/14/2023 Statin intolerance [Z78.9] 09/12/2023 Obesity, Class II, BMI 35-39.9 [E66.812] 10/04/2023 Eye abnormalities [Q15.9] 10/04/2023 Drowsy [R40.0] 10/04/2023 Acute hip pain, left [M25.552] 11/02/2023 Encounter Status:Closed by DESTINY RENEE on 07/30/24 [facility] CNOVon 05-21-2024 CNOV Office Visit ([facility] ) ZORAIDA BARTH ([id number]) 1950 F Date Time Provider Department 05/21/24 10:30 AM FLEX CARRILLO During your visit today, we recorded the following information about you: Pulse Blood pressure 60/minute 138/79 Flex Carrillo DO 05/21/2024 11:02 AM Signed [facility] [place] DEPARTMENT OF VASCULAR SURGERY OUTPATIENT VISIT DATE May 21, 2024 OUTPATIENT VISIT TYPE CONSULTATION SERVICE DATE: 05/21/2024 SERVICE TIME: 10:47 AM PRIMARY CARE PHYSICIAN: Sherri Davalos MD REFERRING PROVIDER: Zeynep Schmidt [id number] [facility] [id number] Consult requested for an opinion regarding the evaluation and treatment of the above. My final impression and recommendations will be communicated back to the requesting physician by way of the shared medical record or letter via US mail. CHIEF COMPLAINT: AAA HISTORY OF PRESENT ILLNESS: Vascular consultation at the request of Dr. Zeynep Schmdit. A copy of this consultation note will be provided to the requesting physician by way of shared Medical record or letter to requesting physician via US mail. Ms. Barth is a 74 year old female who is seen today for AAA. Patient had a fall and developed left hip pain after the fall. Hip and lumbar xrays were performed and incidentally noted evidence of AAA. Aorta ultrasound was subsequently performed 04/22/24 to further evaluate and demonstrated 3.3cm infrarenal AAA, no evidence of aortoiliac stenosis. Denies abdominal pain or back pain. Did not previously know of aneurysm. No family history. Current smoker 1ppd. Has hx of CAD s/p PCI with stent placement 2013. On aspirin no statin due to liver enzymes. Denies chest pain or SOB. History of total abdominal hysterectomy and Laparoscopic cholecystectomy Has history thigh and hip pain with ambulation. Starts at about 25 feet. No rest pain or tissue loss. PAST MEDICAL HISTORY Diagnosis Date Asthma See PFT 12/2020 Cataracts, bilateral CKD (chronic kidney disease), stage III (HCC) Coronary artery disease s/p PTCA with ALEXIS to RCA 04/27, 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 Thompson Non-rheumatic mitral regurgitation 10/03/2017 Onychomycosis Shingles Statin intolerance Tobacco use disorder PAST SURGICAL HISTORY Procedure Laterality Date ARTHROSCOPY KNEE DIAGNOSTIC W/WO SYNOVIAL BX SPX Arthroscopy, knee right LAPAROSCOPY SURG CHOLECYSTECTOMY 10/18/2017 Cholecystectomy, lap LIG/TRNSXJ FLP TUBE ABDL/VAG APPR UNI/BI Tubal ligation PAST SURGICAL HISTORY OF 1994 kidney stone extraction: cut ureter STENT - CORONARY 2012 TONSILLECTOMY HX TOTAL ABDOMINAL HYSTERECT W/WO RMVL TUBE OVARY 1991 Hysterectomy, THANG, BSO URETERAL STENT 1994 2nd surgery SOCIAL HISTORY: Social History Tobacco Use Smoking status: Every Day Current packs/day: 1.00 Average packs/day: 1 pack/day for 55.1 years (55.1 ttl pk-yrs) Types: Cigarettes Start date: 08/14/1969 Smokeless tobacco: Never Vaping Use Vaping status: Never Used Substance Use Topics Alcohol use: No Comment: Rarely Drug use: No FAMILY HISTORY Problem Relation Age of Onset Heart Mother Diabetes Mother Hypertension Mother other (unknown) Father Hypertension Sister Thyroid Sister Asthma Sister Skin Cancer Other 1st cousin, unsure of type other (horseshoe kidney) Son MEDICATIONS: cyclobenzaprine (FLEXERIL) 5 mg tablet Take 1 tablet by mouth two times a day as needed for muscle spasm (Pain). levothyroxine (SYNTHROID) 150 mcg tablet Take 1 tablet by mouth once daily. Take on empty stomach. For thyroid sertraline (ZOLOFT) 100 mg tablet Take 1 tablet by mouth once daily. lisinopril (ZESTRIL) 20 mg tablet Take 1 tablet by mouth two times a day. amLODIPine (NORVASC) 10 mg tablet Take 1 tablet by mouth once daily. propranolol (INDERAL) 20 mg tablet Take 20 mg by mouth two times a day. acetaminophen (TYLENOL) 500 mg tablet Take 1,000 mg by mouth every 8 hours as needed for pain. loratadine (CLARITIN) 10 mg tablet Take 10 mg by mouth once daily. As needed primidone (MYSOLINE) 50 mg tablet Take 2 tablets by mouth daily at bedtime. hydroCHLOROthiazide 25 mg tablet Take 1 tablet by mouth every afternoon. blood sugar diagnostic (BLOOD GLUCOSE TEST) test strip Test blood sugar(s) 1 times daily. Dx: Type 2 DM - Uncontrolled E11.65 Insulin: No albuterol HFA (VENTOLIN HFA) 90 mcg/actuation inhaler Inhale 2 Puffs as instructed every 4 hours as needed. Blood-Glucose Meter monitoring kit Glucose Meter of Choice - Kit - Use once daily Dx: Type 2 DM - Uncontrolled E11.65 aspirin, enteric coated (ASPIRIN, ENTERIC COATED) 81 mg EC tablet Take 81 mg by mouth o (more content not included)... Normal [facility] CNOVon 05-15-2024 CNOV Office Visit ([facility] ) ZORAIDA BARTH ([id number]) 1950 F Date Time Provider Department 05/15/24 12:00 PM DEAN DUBOIS [facility] During your visit today, we recorded the following information about you: Pulse Blood pressure Weight Height 59/minute 144/74 96.9 kg 1.582 m Dean Dubois MD 05/28/2024 12:04 PM Signed FOLLOW UP NOTE Subjective Zoraida Barth is a 74 year old female who presents for follow up. CC: Tremor Summary of prior care: 12/2021 right-handed female with a history of DM, HTN, HLD, and CAD with stent who presents for evaluation of tremor. Her examination demonstrates right hand tremor most prominently with writing or in some positions. No concern for PD. 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 Explained these different diagnoses and treatment approach. She is already on low dose metoprolol, if able to change to propranolol might find more tremor benefit with it. History of depression and anxiety, would need to watch for mood changes if pushing dose of beta juan j. Will try primidone titrating to 100 mg QHS, discussed side effects and use. In future multiple other medications that could be tried. 11/2022 no change. 05/2023 no changes. HPI Current Issues - Continue to generally do well - Uncommonly will notice more tremor when she is doing something - Daily activities like eating and drinking are fine - No problems with primidone 100 QHS - Also on propranolol 20 BID for BP / heart / tremor - Breathing is good Current Outpatient Medications Medication Sig Dispense Refill cyclobenzaprine (FLEXERIL) 5 mg tablet Take 1 tablet by mouth two times a day as needed for muscle spasm (Pain). 60 tablet 0 levothyroxine (SYNTHROID) 150 mcg tablet Take 1 tablet by mouth once daily. Take on empty stomach. For thyroid 90 tablet 1 sertraline (ZOLOFT) 100 mg tablet Take 1 tablet by mouth once daily. 90 tablet 1 lisinopril (ZESTRIL) 20 mg tablet Take 1 tablet by mouth two times a day. 180 tablet 1 amLODIPine (NORVASC) 10 mg tablet Take 1 tablet by mouth once daily. 90 tablet 1 propranolol (INDERAL) 20 mg tablet Take 20 mg by mouth two times a day. acetaminophen (TYLENOL) 500 mg tablet Take 1,000 mg by mouth every 8 hours as needed for pain. loratadine (CLARITIN) 10 mg tablet Take 10 mg by mouth once daily. As needed primidone (MYSOLINE) 50 mg tablet Take 2 tablets by mouth daily at bedtime. 180 tablet 3 hydroCHLOROthiazide 25 mg tablet Take 1 tablet by mouth every afternoon. blood sugar diagnostic (BLOOD GLUCOSE TEST) test strip Test blood sugar(s) 1 times daily. Dx: Type 2 DM - Uncontrolled E11.65 Insulin: No 50 Strip 11 albuterol HFA (VENTOLIN HFA) 90 mcg/actuation inhaler Inhale 2 Puffs as instructed every 4 hours as needed. 1 Each 2 Lancets lancets Test blood sugar(s) 1 times daily. Dx: Type 2 DM - Uncontrolled E11.65 Insulin: No 100 Each 11 Blood-Glucose Meter monitoring kit Glucose Meter of Choice - Kit - Use once daily Dx: Type 2 DM - Uncontrolled E11.65 1 Each 0 aspirin, enteric coated (ASPIRIN, ENTERIC COATED) 81 mg EC tablet Take 81 mg by mouth once daily. NITROGLYCERIN BUCCAL Place between cheek and gum. No current facility-administered medications for this visit. REVIEW OF SYSTEMS Her ROS was positive for that mentioned in the HPI. Otherwise a 10-point ROS was completed and was negative. Objective OBJECTIVE 05/15/24 1151 BP: 144/74 BP Site: Left Arm BP Position: Sitting BP Cuff Size: Regular Adult Pulse: (!) 59 Weight: 96.9 kg (213 lb 8.3 oz) Height: 158.2 cm (5' 2.28") General: General Appearance: Well appearing, alert, in no acute distress, well-hydrated, well nourished. Head: Normocephalic Neck: Supple Heart: RRR Neurologic Exam: Mental Status: She is alert. She is fully oriented. Attention is intact. Memory is intact. Language shows normal comprehension and fluency. Affect is appropriate. Cranial Nerves: Extraocular movements show full and smooth pursuits. No nystagmus. Visual [place] are full to confrontation. Facial activation is symmetric. Hearing is intact to conversation. There is no hypomimia. There is no hypophonia. There is no dysarthria. Tongue is midline. Palate elevates symmetrically. Shoulder shrug is normal. Motor: Muscle bulk is normal. Rapid alternating movements are normal. Muscle power is full. No rest tremor. No postural tremor today. Minimal kinetic tremor. Coordination: Finger to nose is smooth without ataxia. Gait/station: Walks with cane for support DATA REVIEW Actual films/image/tracing reviewed and summarized as follows: n/a Old records reviewed and summarized as follows: TSH 0.814 Assessment/Plan ASSESSMENT AND PLAN: Zoraida Barth is a 74 year old right-handed female with a history of DM, HTN, HLD, and CAD with stent who presen (more content not included)... Normal [facility] ALBUMIN/CREATININE RATIO, UR INEon 05-14-2024 Albumin DL <= 20 mg/L (U) [Mass/Vol] 34.2 mg/L Normal [facility] Comment on above: Order Comment: Speci men Type: URINE SPECIMENOrdering Facility: [facility] Address: [address] [place] [address] Performed By: #### U ACR ####[facility] LABCLIA [id number] [facility] [id number] [place] [address] [place] Albumin/Creatinine (U) [Mass ratio] 43 mg/g High <30 [facility] Comment on above: Order Comment: Speci men Type: URINE SPECIMENOrdering Facility: [facility] Address: [address] [place] [address] Result Comment: Adul t Male and Female Nephrotic Criteria: <30 mg/g is considered normal to mildly increased 30-300 mg/g is considered moderately increased >300 mg/g is considered severely increased KDIGO. (2013). KDIGO 2012 Clinical Practice Guideline for the Evaluation and Management of Chronic Kidney Disease. Official Journal of the International Society of Nephrology, 3(1), 1-150. Performed By: #### U ACR ####[facility] LABCLIA [id number] [place] [address] [place] Creatinine (U) [Mass/Vol] 79.7 mg/dL Normal 20.0-300.0 [facility] Comment on above: Order Comment: Speci men Type: URINE SPECIMENOrdering Facility: [facility] Address: [address] [place] [address] Performed By: #### U ACR ####[facility] LABCLIA [id number] [address] [place] CNOVon 05-14-2024 CNOV Office Visit ([facility] ) ZORAIDA BARTH ([id number]) 1950 F Date Time Provider Department 05/14/24 2:00 PM MICHEAL PRICE [facility] During your visit today, we recorded the following information about you: Pulse Blood pressure Weight Height 59/minute 127/81 96.6 kg 1.582 m Micheal Price DO 05/14/2024 2:47 PM Signed NEPHROLOGY CLINIC INITIAL VISIT PATIENT NAME: Zoraida Levi Lary Consultation requested by Dr. Davalos for an opinion regarding CKD II. My final recommendations will be communicated back to the requesting physician by way of shared Medical record or letter to requesting physician via US mail. ASSESSMENT/PLAN 1.CKD III Cr baseline 1.1 now 1.4 on couple checks, ? Dehydration from woking in the garden (doesn't drink much out there) long hx of recurrent pyeolo and stones with horseshoe kidney many years ago -repeat urine studies, Cystatin C -stop smoking, home BP's -check kidney imaging if remains elevated -return to clinic 6 monts 2.HTN -lisinopril, amlodipine 10, hctz, -controlled in office. -emphasized the importance of control considering AAA, SUBJECTIVE chief complaint HPI: 74 year old hx of dm, htn, copd still smoking, cad s/p pci, AAA as per recent us of the abdomen, previously CKD IIIa with baseline Cr ~1.1, now on two checks this summer, Cr 1.4-1.5. mild hyperkalemia 5.3. 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 Home blood pressures _ Is obese with BMI of 38, lipid poorly controlled as of Aug 2023, Discovered to have horseshoe kidneys after recurrent pyelo and stones in her 30's-40's. Followed with urology back then and had lithotripsy (?) calcium based stone. This was all in [place]. Apparently had ureteral injury at that time with the lithotripsy ~30 years ago. Required stents. Hasn't had a stone in many years Was taking ibuprofen. RENAL HX A1c ~6.5 Duration DM >10 years Duration HTN Urine : bland Imaging: none Cr trend - apparently horseshoe kidney? Current Outpatient Medications Medication Instructions acetaminophen (TYLENOL) 1,000 mg, ORAL, EVERY 8 HOURS NEEDED albuterol HFA (VENTOLIN HFA) 90 mcg/actuation inhaler 2 Puffs, INHALATION, EVERY 4 HOURS NEEDED amLODIPine (NORVASC) 10 mg, ORAL, DAILY aspirin, enteric coated (ASPIRIN, ENTERIC COATED) 81 mg, ORAL, DAILY blood sugar diagnostic (BLOOD GLUCOSE TEST) test strip Test blood sugar(s) 1 times daily. Dx: Type 2 DM - Uncontrolled E11.65 Insulin: No Blood-Glucose Meter monitoring kit Glucose Meter of Choice - Kit - Use once daily Dx: Type 2 DM - Uncontrolled E11.65 cyclobenzaprine (FLEXERIL) 5 mg, ORAL, 2 TIMES DAILY NEEDED hydroCHLOROthiazide 25 mg tablet 1 tablet, ORAL, EVERY AFTERNOON Lancets lancets Test blood sugar(s) 1 times daily. Dx: Type 2 DM - Uncontrolled E11.65 Insulin: No levothyroxine (SYNTHROID) 150 mcg, ORAL, DAILY, Take on empty stomach. For thyroid lisinopril (ZESTRIL) 20 mg, ORAL, 2 TIMES DAILY loratadine (CLARITIN) 10 mg, ORAL, DAILY, As needed NITROGLYCERIN BUCCAL BUCCAL primidone (MYSOLINE) 100 mg, ORAL, AT BEDTIME propranolol (INDERAL) 20 mg, ORAL, 2 TIMES DAILY sertraline (ZOLOFT) 100 mg, ORAL, DAILY Social History Tobacco Use Smoking status: Every Day Current packs/day: 1.00 Average packs/day: 1 pack/day for 55.0 years (55.0 ttl pk-yrs) Types: Cigarettes Start date: 08/14/1969 Smokeless tobacco: Never Vaping Use Vaping status: Never Used Substance Use Topics Alcohol use: No Comment: Rarely Drug use: No FAMILY HISTORY Problem Relation Age of Onset Heart Mother Diabetes Mother Hypertension Mother other (unknown) Father Hypertension Sister Thyroid Sister Asthma Sister Skin Cancer Other 1st cousin, unsure of type other (horseshoe kidney) Son PAST SURGICAL HISTORY Procedure Laterality Date ARTHROSCOPY KNEE DIAGNOSTIC W/WO SYNOVIAL BX SPX Arthroscopy, knee right LAPAROSCOPY SURG CHOLECYSTECTOMY 10/18/2017 Cholecystectomy, lap LIG/TRNSXJ FLP TUBE ABDL/VAG APPR UNI/BI Tubal ligation PAST SURGICAL HISTORY OF 1994 kidney stone extraction: cut ureter STENT - CORONARY 2012 TONSILLECTOMY HX TOTAL ABDOMINAL HYSTERECT W/WO RMVL TUBE OVARY 1991 Hysterectomy, THANG, BSO URETERAL STENT 1994 2nd surgery OBJECTIVE PHYSICAL EXAM: BP - standardized method Pulse 1 BP #1: 125/80 Pulse #1: 60 beats/min 2 BP #2 : 132/83 Pulse #2 : 60 beats/min 3 BP #3 : 124/81 Pulse #3 : 58 beats/min Average Average BP: 127/81 Average Pulse: 59 beats/min Orthostatic vitals Supine Sitting Standing BP cuff location BP cuff location: Left upper arm BP cuff size BP cuff size: large adult Comments for BP values First BP (right) First BP (left) Intake/Output None GENERAL: no distress LUNGS: Lungs clear to auscultation, Good diaphragmatic excursion CARDIAC: Norm (more content not included)... Normal [facility] UA DIP, URINE (POC)on 2023 BILIRUBIN UA (POCT) Negative Negative [facility] CLARITY UA (POCT) Clear [facility] COLOR UA (POCT) Yellow [facility] GLUCOSE UA (POCT) Negative Negative mg/dL [facility] Hemoglobin Ql (U) Negative Negative [facility] KETONE UA (POCT) Negative Negative mg/dL [facility] LEUKOCYTES UA (POCT) Negative Negative [facility] NITRITE UA (POCT) Negative Negative [facility] PH UA (POCT) 5.5 4.5 - 8.0 [facility] Protein Ql (U) Negative Negative mg/dL [facility] SPECIFIC GRAVITY UA (POCT) 1.025 1.005 - 1.030 [facility] UROBILINOGEN UA (POCT) 0.2 Normal E.U./dL [facility] Location:[facility], [address] , [place], [address] [facility] POINT OF CARE [facility] No Panel Informationon 04-22 IMPRESSION: AAA in the distal abdominal aorta. Vp Of Digital Marketing: [employer] Transcribe Date/Time: Apr 22 2024 8:08A Dictated by : LETTY MARK MD This examination was interpreted and the report reviewed and electronically signed by: LETTY MARK MD on Apr 22 2024 8:11AM EST DIVISION OF RADIOLOGY Radiology Study observation (narrative) [facility] No Panel InformationOrdered By: [facility] Provider on 04-22-2024 [facility] US ABD AORTAon 04-22-2024 US ABD AORTA * * *Final Report* * * DATE OF EXAM: Apr 22 2024 7:37AM [id number] - US ABD AORTA / PROCEDURE REASON: Abdominal aortic aneurysm (AAA) without rupture, unspecified part (HCC) * * * * Physician Interpretation * * * * EXAMINATION: COMPLETE ABDOMINAL AORTA ULTRASOUND WITH DOPPLER IMAGING HISTORY: Possible AAA. TECHNIQUE: Crowell scale sonography with color Doppler and spectral Doppler (duplex) imaging of the abdominal aorta and common iliac arteries bilaterally was performed. Images were obtained and stored in a permanent archive. MQ: USAOC_1 COMPARISON: None RESULT: Others: Bowel gas. AORTA (AP x TV): Proximal: 2.5 cm x 2.3 cm Mid (level of renal arteries): 2.3 cm x 2.5 cm Distal: 3.3 cm x 3.3 cm. The sagittal dimension of the AAA measures approximately 5.1 cm. Common Iliac Arteries (AP x TV): Right: 1.2 cm x 1.2 cm Left: 1.0 cm x 1.1 cm Atherosclerotic plaque: present Doppler: Abdominal aorta is patent with no stenosis or dissection. Normal spectral waveforms. Others: The imaged IVC is patent. IMPRESSION: AAA in the distal abdominal aorta. Vp Of Digital Marketing: [employer] Transcribe Date/Time: Apr 22 2024 8:08A Dictated by : LETTY MARK MD This examination was interpreted and the report reviewed and electronically signed by: LETTY MARK MD on Apr 22 2024 8:11AM EST [id number] Normal [facility] Abdominal Aortaon 024 * * *Final Report* * * DATE OF EXAM: Apr 22 2024 7:37AM U 1075 - US ABD AORTA / PROCEDURE REASON: Abdominal aortic aneurysm (AAA) without rupture, unspecified part (HCC) * * * * Physician Interpretation * * * * EXAMINATION: COMPLETE ABDOMINAL AORTA ULTRASOUND WITH DOPPLER IMAGING HISTORY: Possible AAA. TECHNIQUE: Crowell scale sonography with color Doppler and spectral Doppler (duplex) imaging of the abdominal aorta and common iliac arteries bilaterally was performed. Images were obtained and stored in a permanent archive. MQ: USAOC_1 COMPARISON: None RESULT: Others: Bowel gas. AORTA (AP x TV): Proximal: 2.5 cm x 2.3 cm Mid (level of renal arteries): 2.3 cm x 2.5 cm Distal: 3.3 cm x 3.3 cm. The sagittal dimension of the AAA measures approximately 5.1 cm. Common Iliac Arteries (AP x TV): Right: 1.2 cm x 1.2 cm Left: 1.0 cm x 1.1 cm Atherosclerotic plaque: present Doppler: Abdominal aorta is patent with no stenosis or dissection. Normal spectral waveforms. Others: The imaged IVC is patent. DIVISION OF RADIOLOGY Provider, [facility] - 04/22/2024 * * *Final Report* * * DATE OF EXAM: Apr 22 2024 7:37AM U 1075 - US ABD AORTA / PROCEDURE REASON: Abdominal aortic aneurysm (AAA) without rupture, unspecified part (HCC) * * * * Physician Interpretation * * * * EXAMINATION: COMPLETE ABDOMINAL AORTA ULTRASOUND WITH DOPPLER IMAGING HISTORY: Possible AAA. TECHNIQUE: Crowell scale sonography with color Doppler and spectral Doppler (duplex) imaging of the abdominal aorta and common iliac arteries bilaterally was performed. Images were obtained and stored in a permanent archive. MQ: USAOC_1 COMPARISON: None RESULT: Others: Bowel gas. AORTA (AP x TV): Proximal: 2.5 cm x 2.3 cm Mid (level of renal arteries): 2.3 cm x 2.5 cm Distal: 3.3 cm x 3.3 cm. The sagittal dimension of the AAA measures approximately 5.1 cm. Common Iliac Arteries (AP x TV): Right: 1.2 cm x 1.2 cm Left: 1.0 cm x 1.1 cm Atherosclerotic plaque: present Doppler: Abdominal aorta is patent with no stenosis or dissection. Normal spectral waveforms. Others: The imaged IVC is patent. IMPRESSION IMPRESSION: AAA in the distal abdominal aorta. Vp Of Digital Marketing: [facility] Transcribe Date/Time: Apr 22 2024 8:08A Dictated by : LETTY MARK MD This examination was interpreted and the report reviewed and electronically signed by: LETTY MARK MD on Apr 22 2024 8:11AM EST [facility] US DOPPLER AORTAon US DOPPLER AORTA * * *Final Report* * * DATE OF EXAM: Apr 22 2024 7:37AM U 1227 - US DOPPLER AORTA / PROCEDURE REASON: Abdominal aortic aneurysm (AAA) without rupture, unspecified part (HCC) * * * * Physician Interpretation * * * * EXAMINATION: COMPLETE ABDOMINAL AORTA ULTRASOUND WITH DOPPLER IMAGING HISTORY: Possible AAA. TECHNIQUE: Crowell scale sonography with color Doppler and spectral Doppler (duplex) imaging of the abdominal aorta and common iliac arteries bilaterally was performed. Images were obtained and stored in a permanent archive. MQ: USAOC_1 COMPARISON: None RESULT: Others: Bowel gas. AORTA (AP x TV): Proximal: 2.5 cm x 2.3 cm Mid (level of renal arteries): 2.3 cm x 2.5 cm Distal: 3.3 cm x 3.3 cm. The sagittal dimension of the AAA measures approximately 5.1 cm. Common Iliac Arteries (AP x TV): Right: 1.2 cm x 1.2 cm Left: 1.0 cm x 1.1 cm Atherosclerotic plaque: present Doppler: Abdominal aorta is patent with no stenosis or dissection. Normal spectral waveforms. Others: The imaged IVC is patent. IMPRESSION: AAA in the distal abdominal aorta. Vp Of Digital Marketing: [facility] Transcribe Date/Time: Apr 22 2024 8:08A Dictated by : LETTY MARK MD This examination was interpreted and the report reviewed and electronically signed by: LETTY MARK MD on Apr 22 2024 8:11AM EST [id number] Normal [facility] US.doppler Thoracic and abdo clover aortaon 04-22-2024 * * *Final Report* * * DATE OF EXAM: Apr 22 2024 7:37AM WRU 1227 - US DOPPLER AORTA / PROCEDURE REASON: Abdominal aortic aneurysm (AAA) without rupture, unspecified part (HCC) * * * * Physician Interpretation * * * * EXAMINATION: COMPLETE ABDOMINAL AORTA ULTRASOUND WITH DOPPLER IMAGING HISTORY: Possible AAA. TECHNIQUE: Crowell scale sonography with color Doppler and spectral Doppler (duplex) imaging of the abdominal aorta and common iliac arteries bilaterally was performed. Images were obtained and stored in a permanent archive. MQ: USAOC_1 COMPARISON: None RESULT: Others: Bowel gas. AORTA (AP x TV): Proximal: 2.5 cm x 2.3 cm Mid (level of renal arteries): 2.3 cm x 2.5 cm Distal: 3.3 cm x 3.3 cm. The sagittal dimension of the AAA measures approximately 5.1 cm. Common Iliac Arteries (AP x TV): Right: 1.2 cm x 1.2 cm Left: 1.0 cm x 1.1 cm Atherosclerotic plaque: present Doppler: Abdominal aorta is patent with no stenosis or dissection. Normal spectral waveforms. Others: The imaged IVC is patent. DIVISION OF RADIOLOGY Provider, [facility] - 04/22/2024 * * *Final Report* * * DATE OF EXAM: Apr 22 2024 7:37AM WRU 1227 - US DOPPLER AORTA / PROCEDURE REASON: Abdominal aortic aneurysm (AAA) without rupture, unspecified part (HCC) * * * * Physician Interpretation * * * * EXAMINATION: COMPLETE ABDOMINAL AORTA ULTRASOUND WITH DOPPLER IMAGING HISTORY: Possible AAA. TECHNIQUE: Crowell scale sonography with color Doppler and spectral Doppler (duplex) imaging of the abdominal aorta and common iliac arteries bilaterally was performed. Images were obtained and stored in a permanent archive. MQ: USAOC_1 COMPARISON: None RESULT: Others: Bowel gas. AORTA (AP x TV): Proximal: 2.5 cm x 2.3 cm Mid (level of renal arteries): 2.3 cm x 2.5 cm Distal: 3.3 cm x 3.3 cm. The sagittal dimension of the AAA measures approximately 5.1 cm. Common Iliac Arteries (AP x TV): Right: 1.2 cm x 1.2 cm Left: 1.0 cm x 1.1 cm Atherosclerotic plaque: present Doppler: Abdominal aorta is patent with no stenosis or dissection. Normal spectral waveforms. Others: The imaged IVC is patent. IMPRESSION IMPRESSION: AAA in the distal abdominal aorta. Vp Of Digital Marketing: [employer] Transcribe Date/Time: Apr 22 2024 8:08A Dictated by : LETTY MARK MD This examination was interpreted and the report reviewed and electronically signed by: LETTY MARK MD on Apr 22 2024 8:11AM [facility] CNOVon 04-19-2024 CNOV Office Visit (FAMPWS ) ZORAIDA BARTH ([id number]) 1950 F Date Time Provider Department 04/19/24 11:20 AM ZEYNEP SCHMIDT During your visit today, we recorded the following information about you: Pulse Respiration Blood pressure Weight 61/minute 16/minute 144/88 95.9 kg Zeynep Schmidt APRN.[facility] 04/19/2024 12:37 PM Signed 04/19/2024 Patient presents with: Fall: 03/31 is having left hip pain SUBJECTIVE: This is a 74 year old that is here today for Above Complaints. Fell on 03/31/2024. A wagon she was pulling hit the back of her leg and she fell down. Landed on her bottom on pavement. Reports she was able to get back up on he own. No immediate pain. Started experiencing pain a day or so after. Pain located low back which radiates to both hips. Reports pain is sharp at times otherwise a dull constant ache. Aggravated by sitting, standing and laying. Has been doing stretches she learned from PT, taking Acetaminophen and Flexeril for pain and she is having some improvement. Denies saddle anaesthesia, Extremity numbness, tingling, weakness, urinary/bowel incontinence or inability. Reports she does have a hx of chronic low back pain. Reports she need a letter for the health department stating she needs assistaiance with her care due to her son moved a trailer on her property about a year ago. She reports he moved there to help with maintenance of her property inside and out. He does yard work, cleans and cooks for her. Takes her to appointments if need be. She reports she would be unable to live in her home due to her chronic back pain which limits her mobility. Uses a cane to ambulate. PAST MEDICAL HISTORY No date: Asthma Comment: See PFT 12/2020 No date: Cataracts, bilateral No date: CKD (chronic kidney disease), stage III ([facility]) No date: Coronary artery disease Comment: s/p PTCA with ALEXIS to RCA 04/27, [facility] cardiology No date: Depression No date: Diabetes type II (HCC) 10/02/2017: Gallstones 10/02/2017: Horseshoe kidney No date: Hyperlipidemia No date: Hypertension No date: Hypothyroidism 10/03/2017: Liver cyst 2014: Myocardial infarction ([facility]) Comment: Dr. Thompson 10/03/2017: Non-rheumatic mitral regurgitation No date: Onychomycosis No date: Shingles No date: Statin intolerance No date: Tobacco use disorder ALLERGIES Metformin, Poison Rahel Extract, and Znsgcqq-Pgp-Dxt Reductase Inhibitors MEDICATIONS Current Outpatient Medications Medication Sig cyclobenzaprine (FLEXERIL) 5 mg tablet Take 1 tablet by mouth two times a day as needed for muscle spasm (Pain). levothyroxine (SYNTHROID) 150 mcg tablet Take 1 tablet by mouth once daily. Take on empty stomach. For thyroid sertraline (ZOLOFT) 100 mg tablet Take 1 tablet by mouth once daily. lisinopril (ZESTRIL) 20 mg tablet Take 1 tablet by mouth two times a day. amLODIPine (NORVASC) 10 mg tablet Take 1 tablet by mouth once daily. propranolol (INDERAL) 20 mg tablet Take 20 mg by mouth two times a day. acetaminophen (TYLENOL) 500 mg tablet Take 1,000 mg by mouth every 8 hours as needed for pain. loratadine (CLARITIN) 10 mg tablet Take 10 mg by mouth once daily. As needed primidone (MYSOLINE) 50 mg tablet Take 2 tablets by mouth daily at bedtime. hydroCHLOROthiazide 25 mg tablet Take 1 tablet by mouth every afternoon. blood sugar diagnostic (BLOOD GLUCOSE TEST) test strip Test blood sugar(s) 1 times daily. Dx: Type 2 DM - Uncontrolled E11.65 Insulin: No albuterol HFA (VENTOLIN HFA) 90 mcg/actuation inhaler Inhale 2 Puffs as instructed every 4 hours as needed. Lancets lancets Test blood sugar(s) 1 times daily. Dx: Type 2 DM - Uncontrolled E11.65 Insulin: No Blood-Glucose Meter monitoring kit Glucose Meter of Choice - Kit - Use once daily Dx: Type 2 DM - Uncontrolled E11.65 aspirin, enteric coated (ASPIRIN, ENTERIC COATED) 81 mg EC tablet Take 81 mg by mouth once daily. NITROGLYCERIN BUCCAL Place between cheek and gum. No current facility-administered medications for this visit. Medications and allergies reviewed by this provider. SOCIAL HISTORY Social History Tobacco Use Smoking status: Every Day Current packs/day: 1.00 Average packs/day: 1 pack/day for 55.0 years (55.0 ttl pk-yrs) Types: Cigarettes Start date: 08/14/1969 Smokeless tobacco: Never Vaping Use Vaping status: Never Used Substance Use Topics Alcohol use: No Comment: Rarely Drug use: No REVIEW OF SYSTEMS All other reviewed and negative other than HPI. OBJECTIVE: BP 144/88 Pulse 61 Resp 16 Wt 95.9 kg (211 lb 6.7 oz) SpO2 98% BMI 38.05 kg/m? . Vital signs reviewed by this provider. APPEARANCE Well appearing, alert, in no acute distress, well-hydrated, well nourished. EYES PERRLA, conjunctiva and sclera normal. BACK: good flexion and extension, + SLR bilaterally Mild TTP across lower lumbar spine . EXTREMITIES Extremitie (more content not included)... Normal [facility] No Panel Informationon 04-19 Radiology Study observation (narrative) [facility] XR HIP DM 5V PEL+ AP/LAT EA HIPon 04-19-2024 XR HIP DM 5V PEL+ AP/LAT EA HIP * * *Final Report* * * DATE OF EXAM: Apr 19 2024 12:27PM [id number] - XR HIP DM 5V PEL+ AP/LAT EA HIP / PROCEDURE REASON: multiple diagnoses * * * * Physician Interpretation * * * * EXAMINATION: XR HIP DM 5V PEL+ AP/LAT EA HIP HISTORY: fell pain moslty all left sided in posterior hip and lateral side , right not nearly as bad Bilateral hip pain Bilateral hip pain . TECHNIQUE: XR HIP DM 5V PEL+ AP/LAT EA HIP Laterality: BILATERAL Number of different views (projections): 1 pelvis 2 hip 5 M: XB_1 COMPARISON: Pelvis and left hip radiographs 10/30/2023. Lumbar spine radiographs completed today and reported separately. RESULT: 5 images. No identified acute osseous abnormality or change. Well-preserved hip joint spaces. Imaged bowel gas pattern nonobstructive. Unchanged appearance lower lumbar spine. IMPRESSION: No posttraumatic deformities [employer]p Of [employer] Marketing: [facility]OB Transcribe Date/Time: Apr 19 2024 1:01P Dictated by : SUKH MALONE MD This examination was interpreted and the report reviewed and electronically signed by: SUKH MALONE MD on Apr 19 2024 1:06PM EST [id number] Normal [facility] XR HIP BILATERAL 5V PEL/AP/L AT EACH HIPon 04-19-2024 IMPRESSION: No posttraumatic deformities Vp Of Digital Marketing: [facility] Transcribe Date/Time: Apr 19 2024 1:01P Dictated by : SUKH MALONE MD This examination was interpreted and the report reviewed and electronically signed by: SUKH MALONE MD on Apr 19 2024 1:06PM [facility] DIVISION OF RADIOLOGY * * *Final Report* * * DATE OF EXAM: Apr 19 2024 12:27PM WOX [id number] - XR HIP DM 5V PEL+ AP/LAT EA HIP / PROCEDURE REASON: multiple diagnoses * * * * Physician Interpretation * * * * EXAMINATION: XR HIP DM 5V PEL+ AP/LAT EA HIP HISTORY: fell pain moslty all left sided in posterior hip and lateral side , right not nearly as bad Bilateral hip pain Bilateral hip pain . TECHNIQUE: XR HIP DM 5V PEL+ AP/LAT EA HIP Laterality: BILATERAL Number of different views (projections): 1 pelvis 2 hip 5 M: XB_1 COMPARISON: Pelvis and left hip radiographs 10/30/2023. Lumbar spine radiographs completed today and reported separately. RESULT: 5 images. No identified acute osseous abnormality or change. Well-preserved hip joint spaces. Imaged bowel gas pattern nonobstructive. Unchanged appearance lower lumbar spine. DIVISION OF RADIOLOGY Provider, [facility] - 04/19/2024 * * *Final Report* * * DATE OF EXAM: Apr 19 2024 12:27PM WOX [id number] - XR HIP DM 5V PEL+ AP/LAT EA HIP / PROCEDURE REASON: multiple diagnoses * * * * Physician Interpretation * * * * EXAMINATION: XR HIP DM 5V PEL+ AP/LAT EA HIP HISTORY: fell pain moslty all left sided in posterior hip and lateral side , right not nearly as bad Bilateral hip pain Bilateral hip pain . TECHNIQUE: XR HIP DM 5V PEL+ AP/LAT EA HIP Laterality: BILATERAL Number of different views (projections): 1 pelvis 2 hip 5 M: XB_1 COMPARISON: Pelvis and left hip radiographs 10/30/2023. Lumbar spine radiographs completed today and reported separately. RESULT: 5 images. No identified acute osseous abnormality or change. Well-preserved hip joint spaces. Imaged bowel gas pattern nonobstructive. Unchanged appearance lower lumbar spine. IMPRESSION IMPRESSION: No posttraumatic deformities Vp Of Digital Marketing: [facility] Transcribe Date/Time: Apr 19 2024 1:01P Dictated by : SUKH MALONE MD This examination was interpreted and the report reviewed and electronically signed by: SUKH MALONE MD on Apr 19 2024 1:06PM [facility] XR HIP BILATERAL 5V PEL/AP/L AT EACH HIPOrdered By: [facility] Provider on 04-19-2024 [facility] XR LUMBAR 3V AP/LAT/L5-S1on 04-19-2024 XR LUMBAR 3V AP/LAT/L5-S1 * * *Final Report* * * DATE OF EXAM: Apr 19 2024 12:27PM WOX [id number] - XR LUMBAR 3V AP/LAT/L5-S1 / PROCEDURE REASON: Lumbar back pain * * * * Physician Interpretation * * * * EXAMINATION: XR LUMBAR 3V AP/LAT/L5-S1 HISTORY: fell pain moslty all left sided in posterior hip and lateral side , right not nearly as bad Lumbar back pain . TECHNIQUE: XR LUMBAR 3V AP/LAT/L5-S1 Laterality: NOT APPLICABLE Number of different views (projections): 3 M: XB_1 COMPARISON: None RESULT: 3 weightbearing images as labeled. No identified posttraumatic deformity, vertebral compression. Mild gradual lumbar levoscoliosis apex L4-5. Maintained gradual lordosis. Grade 1 L4-5 anterolisthesis. Facet joint degenerative arthrosis most conspicuous at L4-5 and severe at that level. Disc space degeneration moderate to severe leftward L2-3, rightward L3-4. Otherwise mild to moderate. Counting reference: Lumbosacral junction. For the purposes of this report, L4-5 is considered the level of the iliac crest. 5 lumbar type vertebral bodies. Abdominal aortic marginal calcification discussed below. Imaged bowel gas pattern nonobstructive. IMPRESSION: 1. Distal abdominal aortic aneurysm. Follow-up nonemergent but expedient abdominal aortic ultrasound for measurement recommended. ACTIONABLE RESULT 2. No acute lumbar spine findings 3. Degenerative findings as above including L4-5 spondylolisthesis ACTIONABLE RESULT: FOLLOW-UP Acuity: Actionable Findings: Other Routing Code: Misc_1 Recommendation: Unlisted Recommendation (see report) Time Frame: Additional evaluation as described in the impression COMMUNICATION: Results will be communicated with the ordering provider via [employer] staff message or phone message by [facility] [employer] [facility] within 2 business days of report finalization. --END OF FINDING-- Vp Of Digital Marketing: BOB Transcribe Date/Time: Apr 19 2024 12:54P Dictated by : SUKH MALONE MD This examination was interpreted and the report reviewed and electronically signed by: SUKH MALONE MD on Apr 19 2024 1:01PM EST [id number] ACTIONABLE Invalid Interpretation Code [facility] XR Lumbar spine 3 Viewson Interpretation and review of laboratory results Abnormal [facility] Radiology Result ACTIONABLE Abnormal [facility] Comment on above: This report contains an incidental or actionable finding. This finding may be a new finding separate from the reason your provider ordered the imaging test or it may be an already known finding that needs additional or continued follow-up. Because of this incidental or actionable finding, you may need another test (imaging or a different type of test). Please contact your provider for the next steps. IMPRESSION: 1. Distal abdominal aortic aneurysm. Follow-up nonemergent but expedient abdominal aortic ultrasound for measurement recommended. ACTIONABLE RESULT 2. No acute lumbar spine findings 3. Degenerative findings as above including L4-5 spondylolisthesis ACTIONABLE RESULT: FOLLOW-UP Acuity: Actionable Findings: Other Routing Code: Misc_1 Recommendation: Unlisted Recommendation (see report) Time Frame: Additional evaluation as described in the impression COMMUNICATION: Results will be communicated with the ordering provider via [employer] staff message or phone message by [facility] within 2 business days of report finalization. --END OF FINDING-- Vp Of Digital Marketing: [employer] Transcribe Date/Time: Apr 19 2024 12:54P Dictated by : SUKH MALONE MD This examination was interpreted and the report reviewed and electronically signed by: SUKH MALONE MD on Apr 19 2024 1:01PM [facility] DIVISION OF RADIOLOGY * * *Final Report* * * DATE OF EXAM: Apr 19 2024 12:27PM WOX [id number] - XR LUMBAR 3V AP/LAT/L5-S1 / PROCEDURE REASON: Lumbar back pain * * * * Physician Interpretation * * * * EXAMINATION: XR LUMBAR 3V AP/LAT/L5-S1 HISTORY: fell pain moslty all left sided in posterior hip and lateral side , right not nearly as bad Lumbar back pain . TECHNIQUE: XR LUMBAR 3V AP/LAT/L5-S1 Laterality: NOT APPLICABLE Number of different views (projections): 3 M: XB_1 COMPARISON: None RESULT: 3 weightbearing images as labeled. No identified posttraumatic deformity, vertebral compression. Mild gradual lumbar levoscoliosis apex L4-5. Maintained gradual lordosis. Grade 1 L4-5 anterolisthesis. Facet joint degenerative arthrosis most conspicuous at L4-5 and severe at that level. Disc space degeneration moderate to severe leftward L2-3, rightward L3-4. Otherwise mild to moderate. Counting reference: Lumbosacral junction. For the purposes of this report, L4-5 is considered the level of the iliac crest. 5 lumbar type vertebral bodies. Abdominal aortic marginal calcification discussed below. Imaged bowel gas pattern nonobstructive. DIVISION OF RADIOLOGY Provider, [facility] - 04/19/2024 * * *Final Report* * * DATE OF EXAM: Apr 19 2024 12:27PM WOX [id number] - XR LUMBAR 3V AP/LAT/L5-S1 / PROCEDURE REASON: Lumbar back pain * * * * Physician Interpretation * * * * EXAMINATION: XR LUMBAR 3V AP/LAT/L5-S1 HISTORY: fell Mar. pain moslty all left sided in posterior hip and lateral side , right not nearly as bad Lumbar back pain . TECHNIQUE: XR LUMBAR 3V AP/LAT/L5-S1 Laterality: NOT APPLICABLE Number of different views (projections): 3 M: XB_1 COMPARISON: None RESULT: 3 weightbearing images as labeled. No identified posttraumatic deformity, vertebral compression. Mild gradual lumbar levoscoliosis apex L4-5. Maintained gradual lordosis. Grade 1 L4-5 anterolisthesis. Facet joint degenerative arthrosis most conspicuous at L4-5 and severe at that level. Disc space degeneration moderate to severe leftward L2-3, rightward L3-4. Otherwise mild to moderate. Counting reference: Lumbosacral junction. For the purposes of this report, L4-5 is considered the level of the iliac crest. 5 lumbar type vertebral bodies. Abdominal aortic marginal calcification discussed below. Imaged bowel gas pattern nonobstructive. IMPRESSION IMPRESSION: 1. Distal abdominal aortic aneurysm. Follow-up nonemergent but expedient abdominal aortic ultrasound for measurement recommended. ACTIONABLE RESULT 2. No acute lumbar spine findings 3. Degenerative findings as above including L4-5 spondylolisthesis ACTIONABLE RESULT: FOLLOW-UP Acuity: Actionable Findings: Other Routing Code: Misc_1 Recommendation: Unlisted Recommendation (see report) Time Frame: Additional evaluation as described in the impression COMMUNICATION: Results will be communicated with the ordering provider via [employer] staff message or phone message by [facility] within 2 business days of report finalization. --END OF FINDING-- Vp Of Digital Marketing: [facility]OB Transcribe Date/Time: Apr 19 2024 12:54P Dictated by : SUKH MALONE MD This examination was interpreted and the report reviewed and electronically signed by: SUKH MALONE MD on Apr 19 2024 1:01PM EST [facility] CBC W Ordered Manual Differe ntial panel (Bld)on 03-18-2024 Basophils (Bld) [#/Vol] 0.08 10*3/uL NINF [facility] Basophils/100 WBC (Bld) 0.7 % [facility] Differential cell count method Nom (Bld) Auto [facility] Eosinophils (Bld) [#/Vol] 0.40 10*3/[facility]L [facility] Eosinophils/100 WBC (Bld) 3.5 % [facility] Erythrocyte distribution width (RBC) [Ratio] 13.4 % 11.5 - 15.0 % [facility] Hematocrit (Bld) [Volume fraction] 39.8 % 36.0 - 46.0 % [facility] Hemoglobin (Bld) [Mass/Vol] 13.0 g/dL 11.5 - 15.5 g/dL [facility] Immature granulocytes (Bld) [#/Vol] 0.14 10*3/uL High [facility] Immature granulocytes/100 WBC (Bld) 1.2 % [facility] Interpretation and review of laboratory results Abnormal [facility] Lymphocytes (Bld) [#/Vol] 2.74 10*3/uL [facility] Lymphocytes/100 WBC (Bld) 24.1 % [facility] MCH (RBC) [Entitic mass] 33.6 pg 26.0 - 34.0 pg [facility] MCHC (RBC) [Mass/Vol] 32.7 g/dL 30.5 - 36.0 g/dL [facility] MCV (RBC) [Entitic vol] 102.8 fL High 80.0 - 100.0 fL [facility] Monocytes (Bld) [#/Vol] 0.67 10*3/uL [facility] Monocytes/100 WBC (Bld) 5.9 % [facility] Neutrophils (Bld) [#/Vol] 7.35 10*3/uL [facility] Neutrophils/100 WBC (Bld) 64.6 % [facility] Nucleated RBC (Bld) [#/Vol] [facility] Nucleated RBC/100 WBC (Bld) [Ratio] 0.0 % /100 WBC [facility] Platelet mean volume (Bld) [Entitic vol] 12.2 fL 9.0 - 12.7 fL [facility] Platelets (Bld) [#/Vol] 266 10*3/uL [facility] RBC (Bld) [#/Vol] 3.87 10*6/uL Low 3.90 - 5.20 m/uL [facility] WBC (Bld) [#/Vol] 11.38 10*3/uL High [facility] This is an appended report. These results have been appended to a previously verified report. [facility] XR Pelvis and Hip - left AP and Lateral frogon 10-30-2023 IMPRESSION: No acute osseous abnormality. Vp Of Digital Marketing: BOB Transcribe Date/Time: Oct 30 2023 11:58A Dictated by : LARISA JOHNSTON DO This examination was interpreted and the report reviewed and electronically signed by: LARISA JOHNSTON DO on Oct 30 2023 12:01PM [facility] DIVISION OF RADIOLOGY * * *Final Report* * * DATE OF EXAM: Oct 30 2023 11:54AM WOX [id number] - XR HIP 3V PELV+ AP/LAT LT / PROCEDURE REASON: Acute hip pain, left * * * * Physician Interpretation * * * * EXAMINATION: XR HIP 3V PELV+ AP/LAT LT PATIENT/TECHNOLOGIST PROVIDED HISTORY: Posterior to lateral left hip pain following a fall x 2 weeks ago CLINICAL INFORMATION: 73 years old Female with Acute hip pain, left TECHNIQUE: XR HIP 3V PELV+ AP/LAT LT Laterality: LEFT Number of different views (projections): 3 COMPARISON: None. RESULT: No fracture. Hip joint spaces are maintained. Incompletely evaluated degenerative changes in the lumbar spine. Mild degenerative change bilateral sacroiliac joints. DIVISION OF RADIOLOGY Provider, [facility] - 10/30/2023 * * *Final Report* * * DATE OF EXAM: Oct 30 2023 11:54AM WOX [id number] - XR HIP 3V PELV+ AP/LAT LT / PROCEDURE REASON: Acute hip pain, left * * * * Physician Interpretation * * * * EXAMINATION: XR HIP 3V PELV+ AP/LAT LT PATIENT/TECHNOLOGIST PROVIDED HISTORY: Posterior to lateral left hip pain following a fall x 2 weeks ago CLINICAL INFORMATION: 73 years old Female with Acute hip pain, left TECHNIQUE: XR HIP 3V PELV+ AP/LAT LT Laterality: LEFT Number of different views (projections): 3 COMPARISON: None. RESULT: No fracture. Hip joint spaces are maintained. Incompletely evaluated degenerative changes in the lumbar spine. Mild degenerative change bilateral sacroiliac joints. IMPRESSION IMPRESSION: No acute osseous abnormality. Vp Of Digital Marketing: BOB Transcribe Date/Time: Oct 30 2023 11:58A Dictated by : LARISA JOHNSTON DO This examination was interpreted and the report reviewed and electronically signed by: LARISA JOHNSTON DO on Oct 30 2023 12:01PM EST [facility] Radiology Study observation (narrative) [facility] XR Pelvis and Hip - left AP and Lateral frogOrdered By: Ccf Provider on 10-30-2023 [facility] Office Visit Reporton 2023 Office Visit Report [facility] [address] [place] [address] OFFICE VISIT Date of Service: 10/18/23 MR#: [id number] Acct: [id number] Patient: ZORAIDA BARTH Rep #: [id number] : 1950 Provider: Dr. Jaguar mccullough MD Age/Sex: 73/F Location[place] [facility] [place] Status: Signed Intake Vital Signs 09/08/23 13:29 Height 5 ft 3 in Weight: 216 lb BMI 38.2 BP 113/72 Blood Pressure Location Lt brachial Position Sitting Respiration 18 Pulse 67 Pulse Source Monitor Intake Visit Reasons: Change from Metop to Propranolol LL Chief Complaint: chest pain Allergies Exqbane-XXP-PrZ Reductase Inhibitor [Ylrwvqm-Gdu-Ric Reductase Inhibitor] Allergy (Unknown, Verified 09/08/23 13:31) Other Nursing Note Pt in office for blood pressure and pulse check. BP: 104/63, P: 58. Pt states she has been feeling good since changing her medication from Metoprolol to Propranolol. No side effects noted. Quality Reporting Tobacco Screening ([facility] 138) Smoking Status: Current every day smoker 10/18/23 1401 Date ____ Jaguar Thompson MD Cosigner Signature: Date ____ (if applicable) CC: Normal [facility] Absolute lymphocyte countOrd ered By: Jose Jackson on 03-22-2023 Lymphocytes Auto (Unsp spec) [#/Vol] 1.74 10*3/uL 0.83-4.51 [facility] Basophil percentageOrdered B y: Jose Jackson on 03-22-2023 Basophils/100 WBC (Bld) 0.7 % 0-1 [facility] Bilirubin [Mass/Vol] 0.20 mg/dL 0.20-1.00 [facility] Comment on above: For patients on eltr ombopag therapy, use of Dimension [place] TBIL is not recommended. Chloride [Moles/Vol] 108 mmol/L 98-107 [facility] Eosinophils/100 WBC (Bld) 3.3 % 0-5 [facility] Glucose [Mass/Vol] 109 mg/dL 74-106 [facility] Comment on above: Fasting Glucose resu lt from 100 to 125 mg/dL suggests IMPAIRED HOMEOSTASIS per A.D.A. criteria. Neutrophils (Bld) [#/Vol] 6.4 10*3/uL 2.0-7.7 [facility] Neutrophils/100 WBC (Bld) 70.0 % 47-70 [facility] Potassium [Moles/Vol] 4.0 mmol/L 3.5-5.1 [facility] Protein [Mass/Vol] 7.4 g/dL 6.4-8.2 [facility] Sodium [Moles/Vol] 139 mmol/L 136-145 [facility] WBC (Bld) [#/Vol] 9.2 10*3/uL 4.4-11.0 [facility] Blood erythrocytes count (nu mber/volume)Ordered By: Jose Jackson on 03-22-2023 RBC (Bld) [#/Vol] 3.93 10*6/uL 4.2-5.4 [facility] Blood hemoglobin measurement (mass/volume)Ordered By: Jose Jackson on 03-22-2023 Hemoglobin (Bld) [Mass/Vol] 13.0 g/dL 12.0-15.0 [facility] Blood lymphocytes/100 leukoc ytesOrdered By: Jose Jackson on 03-22-2023 Lymphocytes/100 WBC (Bld) 19.0 % 19-41 [facility] Blood monocytes/100 leukocyt esOrdered By: Jose Jackson on 03-22-2023 Monocytes/100 WBC (Bld) 6.1 % 0-10 [facility] Blood platelet mean volumeOr dered By: Jose Jackson on 03-22-2023 Platelet mean volume (Bld) [Entitic vol] 10.5 fL 6.2-12.0 [facility] Determination of erythrocyte mean corpuscular volume (MCV)Ordered By: Jose Jackson on 03-22-2023 MCV (RBC) [Entitic vol] 98.5 fL 81-99 [facility] Hematocrit Auto (Bld) [Volum e fraction]Ordered By: Jose Manuel on 03-22-2023 Hematocrit (Bld) [Volume fraction] 38.7 % 37-47 [facility] Laboratory - Chemistry and C hemistry - challengeOrdered By: Lafayette Manuel on 03-22-2023 ALP [Catalytic activity/Vol] 73 U/L 45-117 [facility] ALT [Catalytic activity/Vol] 8 U/L 13-56 [facility] CO2 [Moles/Vol] 26.0 mmol/L 21.0-32.0 [facility] Globulin (S) [Mass/Vol] 3.9 g/dL 2.2-4.2 [facility] Lipase [Catalytic activity/Vol] 41 U/L 13-75 [facility] Comment on above: Please note:LIPASE r evised reference range effective 22. New Lipase methodology. Expected to produce lower values than the previous assay method. NEW Reference Range: 13 - 75 U/L Urea nitrogen/Creatinine [Mass ratio] 13.9 mg/mg 10-20 [facility] Laboratory - Hematology and Cell countsOrdered By: Jose Manuel on 03-22-2023 Erythrocyte distribution width (RBC) [Entitic vol] 52.9 fL 35.1-43.9 [facility] Erythrocyte distribution width (RBC) [Ratio] 14.6 % 11.6-14.6 [facility] Immature granulocytes/100 WBC (Bld) 0.900 % 0.0-0.9 [facility] Comment on above: IG% - Immature Granu locytes (promyelocytes, myelocytes and metamyelocytes) > 1% indicates that a LEFT SHIFT is Present. MCH (RBC) [Entitic mass] 33.1 pg 27.0-32.0 [facility] Nucleated RBC/100 WBC (Bld) [Ratio] 0 % 0-5 [facility] ([facility]) [Mass/Vol]Or dered By: Jose Jackson on 03-22-2023 MCHC (RBC) [Mass/Vol] 33.6 g/dL 32-36 [facility] No Panel InformationOrdered By: Jose Jackson on 03-22-2023 Troponin I High Sensitivity 7 pg/mL 3.0-54.0 [facility] Comment on above: Please Note: New Jessica t Units and Gender Specific Reference Ranges. For more information see Policy Stat Procedure [place] High Sensitivity Troponin (TNIH) and attachments. Estimated Creatinine Clearance Calc 42.87 ml/min [facility] Estimated GFR (MDRD) Amer 70 mL/min >60 [facility] Comment on above: GFR Calc Estimated GFR (MDRD) Non-Af Amer 57 mL/min >60 [facility] Comment on above: Non- GFR Calc Platelets bldOrdered By: Jessa Jackson on 03-22-2023 Platelets (Bld) [#/Vol] 229 10*3/uL 150-450 [facility] Serum or plasma albumin manda urement (mass/volume)Ordered By: Jose Jackson on 03-22-2023 Albumin [Mass/Vol] 3.5 g/dL 3.2-5.0 [facility] Serum or plasma albumin/glob ulin mass ratioOrdered By: Jose Jackson on 03-22-2023 Albumin/Globulin [Mass ratio] 0.9 {ratio} 0.9-2.4 [facility] Serum or plasma calcium manda urement (mass/volume)Ordered By: Jose Jackson on 03-22-2023 Calcium [Mass/Vol] 8.8 mg/dL 8.5-10.1 [facility] Serum or plasma creatinine m easurement (mass/volume)Ordered By: Jose Jackson on 03-22-2023 Creatinine [Mass/Vol] 1.01 mg/dL 0.55-1.02 [facility] Comment on above: The validity of the calculated GFR & GFRAA in patients over 70 years has not been determined. Clinical correlation is essential. Serum or plasma urea nitroge n measurement (mass/volume)Ordered By: Jose Jackson on 03-22-2023 Urea nitrogen [Mass/Vol] 14 mg/dL 7-18 [facility] Thin prep Papanicolaou smear with manual screeningOrdered By: Jose Jackson on 03-22-2023 Thin prep Papanicolaou smear with manual screening 12 U/L 15-37 [facility] Thin prep Papanicolaou smear with manual screening 5 5-15 [facility] TSH BLDon 01-27-2023 TSH Qn 2.660 m[IU]/L 0.270 - 4.200 mIU/L [facility] STREP A MOLECULAR (POC)on Procedural Control Valid [facility] Strep A (POCT) Negative Negative [facility] Basophil percentageon 2021 Bilirubin [Mass/Vol] 0.30 mg/dL 0.20-1.00 [facility] Work Phone: Comment on above: For patients on eltr ombopag therapy, use of Dimension [place] TBIL is not recommended. Cholesterol [Mass/Vol] 283 mg/dL <200 [facility] Work Phone: Comment on above: <200 mg/dL Desirable 200-240 mg/dL Borderline >240 mg/dL High Risk Protein [Mass/Vol] 7.8 g/dL 6.4-8.2 [facility] Work Phone: Triglyceride [Mass/Vol] 182 mg/dL [facility] Work Phone: Comment on above: The drugs N-Acetylcy steine and Metamizole may falsely depress this assay.Serum Triglycerides Reference Interval Normal <150 mg/dL Borderline high 150 - 199 mg/dL High 200 - 499 mg/dL Very High > or = 500 mg/dL Direct bilirubinon 2 Bilirubin.direct [Mass/Vol] 0.06 mg/dL 0.00-0.30 [facility] Work Phone: Laboratory - Chemistry and C hemistry - challengeon 12-09-2021 ALP [Catalytic activity/Vol] 84 U/L 45-117 [facility] Work Phone: ALT [Catalytic activity/Vol] 12 U/L 13-56 [facility] Work Phone: Globulin (S) [Mass/Vol] 4.1 g/dL 2.2-4.2 [facility] Work Phone: [phone] Serum or plasma albumin manda urement (mass/volume)on 12-09-2021 Albumin [Mass/Vol] 3.7 g/dL 3.2-5.0 [facility] Work Phone: Serum or plasma cholesterol in HDL measurement (mass/volume)on 12-09-2021 Cholesterol in HDL [Mass/Vol] 37 mg/dL [facility] Work Phone: Comment on above: The drugs N-Acetylcy steine and Metamizole may falsely depress this assay. Reference Range HDL <40 mg/dL Low HDL Cholesterol HDL >or= 60 mg/dL High HDL Cholesterol Serum or plasma cholesterol in VLDL measurement (mass/volume)on 12-09-2021 Cholesterol in VLDL [Mass/Vol] 36 mg/dL 5-40 [facility] Work Phone: Serum or plasma low density lipoprotein (LDL) cholesterol measurement (mass/volume)on 12-09-2021 Cholesterol in LDL [Mass/Vol] 210 mg/dL 0-130 [facility] Work Phone: Thin prep Papanicolaou smear with manual screeningon 12-09-2021 Thin prep Papanicolaou smear with manual screening 16 U/L 15-37 [facility] Work Phone: ANES Roge 10-18-2017 ANES POST HNO ID: [id number] thor: Kaylyn Dasilvaervice: AnesthesiologyAuthor Type: AnesthesiologistType: Anesthesia PostOpFiled: 10/18/2017 2:29 PMNote Text:POST ANESTHESIA EVALUATION NOTESERVICE DATE: 10/18/2017SERVICE TIME: 2:28 PMDOB: 1950Vitals: 10/18/1808Temp: 36.6 ?C (97.9 ?F) 37.3 ?C (99.1 ?F) 37 ?C (98.6 ?F) 10/18/180907/015126MH: (!) 107/40 118/56 114/56 128/60 10/18/1809Pulse: (!) 54 (!) 58 (!) 55 (!) 58 10/18/1809Resp: 16 16 16 16 10/18/1809SpO2: 98% 100% 100% 99%Validated Vital Signs: YesPOST ANES STATUS: No apparent anesthetic complications. The patient isappropriately hydrated with stable respiratory and cardiovascular status.Patient has safe and adequate airway control. The patient has appropriatepain relief and no significant post operative nausea or vomiting. Thepatient has achieved baseline mental status.Further assessment by Anesthesia Service: NoneOther Remarks:SIGNATURE: Kaylyn Tineo MD PATIENT NAME: Zoraida Levi PlantDATE: October 18, 2017 : 2:28 PM PAGER/CONTACT #: [phone] [facility] ANES PREOPon 10-18-2017 ANES PREOP HNO ID: [id number] thor: Edouard AmosService: AnesthesiologyAuthor Type: AnesthesiologistType: Anesthesia PreOpFiled: 10/18/2017 7:05 AMNote Text: ANESTHESIOLOGY DAY OF SURGERY NOTESERVICE DATE: 10/18/2017SERVICE TIME: 7:05 AMDOB: 2Procedure(s) (LRB):LAPAROSCOPIC CHOLECYSTECTOMY (N/A)Surgeon(s):Satya ToribioanEstimated body mass index is 36.14 kg/(m2) as calculated from thefollowing: Height as of this encounter: 160 cm (5' 3"). Weight as of this encounter: 92.5 kg (204 lb).Most recent hematocrit and potassium results:Hematocrit 41.3 10/02/2017Potassium 4.0 09/11/2017ANES DOS/PREOP NOTE: Vitals: 1BP: 147/72Pulse: (!) 57Resp: 18Temp: 36.6 ?C (97.9 ?F)TempSrc: Temporal ArterySpO2: 96%Weight: 92.5 kg (204 lb)Height: 160 cm (5' 3")ACTIVE PROBLEM LISTCoronary Artery Disease Involving [place] Coronary Artery of [place] HeartWithout Angina PectorisEssential HypertensionHypothyroidismMild Episode of Recurrent Major Depressive Disorder (Hcc)PrediabetesCkd (Chronic Kidney Disease), Stage IiiBiliary ColicHyperlipidemiaGallstonesSt ented Coronary ArteryHorseshoe KidneyDepressionNon-Rheumatic Mitral RegurgitationLiver CystPAST MEDICAL HISTORYDiagnosis Date- CKD (chronic kidney disease), stage III- Coronary artery disease- Depression- Gallstones 10/02/2017- Horseshoe kidney 10/02/2017- Hyperlipidemia- Hypertension- Hypothyroidism- Liver cyst 10/03/2017- Myocardial infarction (HCC) [address] Delgado- Non-rheumatic mitral regurgitation 10/03/2017- Prediabetes- ShinglesPAST SURGICAL HISTORYProcedure Laterality Date- KNEE SCOPE,DIAGNOSTIC Arthroscopy, knee right- LIGATE FALLOPIAN TUBE Tubal ligation- PAST SURGICAL HISTORY OF 1994 kidney stone extraction: cut ureter- STENT - CORONARY 2012- TONSILLECTOMY HX- TOTAL ABDOM HYSTERECTOMY 1991 Hysterectomy, THANG, BSO- URETERAL STENT 1994 2nd surgeryFAMILY HISTORYProblem Relation Age of Onset- Heart Mother- Diabetes Mother- Hypertension Mother- Hypertension Sister- Thyroid Sister- Asthma Sister- unknown [OTHER] FatherSocial History:Social HistorySubstance Use Topics- Smoking status: Current Every Day Smoker Packs/day: 0.50 Years: 40.00 Types: Cigarettes Start date: 08/14/1969- Smokeless tobacco: Never Used- Alcohol use No Comment: RarelyNo current facility-administered medications on file prior to encounter.Current Outpatient Prescriptions on File Prior to Encounter:oxyCODONE-acetaminoph en (PERCOCET) 5-325 mg tablet Take 1 tablet by mouthevery 6 hours as needed.promethazine (PHENERGAN) 25 mg tablet Take 1 tablet by mouth every 4 hoursas needed.amLODIPine (NORVASC) 5 mg tablet Take 1 tablet by mouth once daily.metoprolol succinate ER (TOPROL XL) 25 mg 24 hr tablet Take 0.5 tablets bymouth once daily.lisinopril (ZESTRIL, PRINIVIL) 20 mg tablet Take 1 tablet by mouth twicedaily.citalopram (CELEXA) 20 mg tablet TAKE 1 TABLET EVERY DAYlevothyroxine (SYNTHROID) 125 mcg tablet TAKE 1 TABLET EVERY DAY beforebreakfastibuprofen (MOTRIN) 200 mg tablet Take 3 tablets by mouth every 6 hours asneeded for Pain (Take with food.).aspirin 81 mg chewable tablet Take 81 mg by mouth once daily.NITROGLYCERIN BUCCAL Place between cheek and gum.Current Facility-Administered Medications:lactated ringers infusion 30 mL/hr INTRAVENOUS CONTINUOUS Satya TGutestuardo Last Rate: 30 mL/hr at 10/18/17 0638 30 mL/hr at 10/18/17 0638ceFAZolin iv piggyback 2 g in D5W (iso-osmotic) 100 mL (ANCEF) 2 gINTRAVENOUS Pre-Op Once Satya ToribioanAllergies:ALLERGIESAller gen Reactions- Ugvahpv-Vxk-Gmp Red* Other: See Comments cholesterol medications cause liver painDOS EXAM: Adequate NPO status: YesAnesthetic risks, benefits, alternatives, personnel and consent discussed:YesPatient agrees to proceed: YesPrevious Anesthesia: No history of adverse event.Airway Assessment: MP 2; Neck ROM: Full ROM without neurologic symptoms;Airway Evaluation: No significant abnormalitiesSymptoms of Sleep Apnea: NoneDentition: Teeth intactAdditional Physical Exam:Lungs: Patient health status unchanged since recent history and physical.See history and physical for exam findings.Cardiac: Patient health status unchanged since recent history andphysical. See history and physical for exam findings.Additional Pertinent Findings: N/ABlood Products: Not anticipated for this procedure.Anesthetic Plan: General, Standard ASA MonitorsPain Management Plan: Parenteral or OralASA Class: 3Other Medical Problems:Obesity-BMI 36.15CAD with ID s/p PCI to RCA 2013 on daily ASAMild-Mod MV regurgHTN-Amlodipine, Metoprolol, LisinoprilHLD- No RXHypothyroid-LevothyroxineCKD- GFR 52, Cr 1.1Horseshoe kidneyBorderline DM-no RXDepression-CelexaSmall hiatal herniaGallstonesSmoker-47 pk yrsI have interviewed and examined the patient. I have reviewed the medicalrecord and/or the pre-anesthesia evaluation, pertinent labs, and testresults.Significant changes in the patient's condition since the History andPhysical, not otherwise documented in primary service progress notes: NoThis contains updated information obtained within 48 hours ofSurgery/Procedure.SIGNATURE: Edouard Amos MD PATIENT NAME: Zoraida BarthDATE: October 18, 2017 : 7:05 AM CSN: [id number] [facility] BRIEF OP NOTon 10-18-2017 BRIEF OP NOT HNO ID: [id number] thor: Satya Collazoervice: General SurgeryAuthor Type: PhysicianType: Brief Op NoteFiled: 10/18/2017 9:25 AMNote Text:BRIEF OPERATIVE NOTATION FOR SURGICAL PROCEDURE.Zoraida Barth 1950 [id number] femaleLOG ID: [id number]/Procedure Date: 10/18/2017Incision/Procedure Start Time: 8:03 AMIncision Close/Procedure End Time: 9:19AMSurgeon(s)/Proceduralist( s) and Hand Drawer In(s):Surgeon(s) and Role: * Satya Rosas - PrimaryRegistered Nurse Bus Person: Josie (Rn) JAZMYNE MaciasREFERRING PHYSICIAN:OutpatientDEPT: MISTI PROVIDER: Xuan POS:[id number]: GeneralASA CLASS: 3 - SevereDIAGNOSIS: hydrops of gallbladderPROCEDURE: LAPAROSCOPIC CHOLECYSTECTOMY WITH INTRAOPERATIVE CHOLEANGIOGRAM- 08913-381WII: 1000EBL: 25Specimens: gallbladderADDITIONAL DIAGNOSES:FINDINGS: hydrops, Normal IOC (duct enters on left)COMPLICATIONS: NonePMHx -PAST MEDICAL HISTORYDiagnosis Date- CKD (chronic kidney disease), stage III- Coronary artery disease- Depression- Gallstones 10/02/2017- Horseshoe kidney 10/02/2017- Hyperlipidemia- Hypertension- Hypothyroidism- Liver cyst 10/03/2017- Myocardial infarction (HCC) [address] Delgado- Non-rheumatic mitral regurgitation 10/03/2017- Prediabetes- ShinglesCOMORBIDITIES - Obesity, CAD, HTN, Hx Cardiac Surgery and MIPost Op Occurrences - NoneWound Classification - Clean ContaminatedOperative note dictated in the dictation system. - [id number] Rosas MD [facility] HISTORY PHYSICALon 8 HISTORY PHYSICAL HNO ID: [id number] thor: Satya Collazoervice: General SurgeryAuthor Type: PhysicianType: HANDPFiled: 10/18/2017 7:49 AMNote Text:HISTORY AND PHYSICAL?Zoraida Levi 1950?REFERRING PHYSICIAN: Sherri Davalos *?CHIEF COMPLAINT: Consult (Consult Gallbladder)?HPI: Zoraida is a 67 year old female with a complaint of right upperquadrant pain. The patient has had symptoms of right upper quadrant pain. The symptoms have increased, over the past few weeks. The pain doesradiate to the back. Food does aggravate her symptoms. Alleviatingfactors include: none.?The patient was seen by the emergency room physician 5 days ago. Nadeen an ultrasound. These tests demonstrated cholelithiasis.The patient is referred for evaluation and treatment.?The patient is being seen by me today at the request of Dr. Sherri Villa MD for my opinion and advice regarding biliary colic.?The patient is still having right upper quadrant pain, though it issomewhat improved. This pain is not controlled with ibuprofen. 2 dayspreviously. She required narcotics.?The patient has a history of coronary artery disease. He follows with . He has cleared her for surgical intervention and feel sheneeds no additional preoperative studies.??SIGNIFICANT MEDICAL PROBLEMS: PAST?MEDICAL?HISTORY PAST MEDICAL HISTORYDiagnosis Date- CKD (chronic kidney disease), stage III ?- Coronary artery disease ?- Depression ?- Horseshoe kidney ?- Hyperlipidemia ?- Hypertension ?- Hypothyroidism ?- Myocardial infarction 2013? Seeing Dr. Delgado- Prediabetes ?- Shingles ???OPERATIONS: PAST?SURGICAL?HISTORYPAST SURGICAL HISTORYProcedure Laterality Date- KNEE SCOPE,DIAGNOSTIC ? ?? Arthroscopy, knee right- LIGATE FALLOPIAN TUBE ? ?? Tubal ligation- PAST SURGICAL HISTORY OF ? 1994? kidney stone extraction: cut ureter- TOTAL ABDOM HYSTERECTOMY ? 1991? Hysterectomy, THANG, BSO- URETERAL STENT ? 1994? 2nd surgery???CURRENT MEDICATIONS: CURRENT?MEDICATIONS Current Outpatient Prescriptions:oxyCODONE-acetami nophen (PERCOCET) 5-325 mg tablet Take 1 tablet by mouthevery 6 hours as needed. Disp: Rfl: 0promethazine (PHENERGAN) 25 mg tablet Take 1 tablet by mouth every 4 hoursas needed. Disp: Rfl: 0amLODIPine (NORVASC) 5 mg tablet Take 1 tablet by mouth once daily. Disp:30 tablet Rfl: 11metoprolol succinate ER (TOPROL XL) 25 mg 24 hr tablet Take 0.5 tablets bymouth once daily. Disp: 30 tablet Rfl: 5lisinopril (ZESTRIL, PRINIVIL) 20 mg tablet Take 1 tablet by mouth twicedaily. Disp: 60 tablet Rfl: 5citalopram (CELEXA) 20 mg tablet TAKE 1 TABLET EVERY DAY Disp: 30 tabletRfl: 5levothyroxine (SYNTHROID) 125 mcg tablet TAKE 1 TABLET EVERY DAY beforebreakfast Disp: 30 tablet Rfl: 5ibuprofen (MOTRIN) 200 mg tablet Take 3 tablets by mouth every 6 hours asneeded for Pain (Take with food.). Disp: Rfl: 0aspirin 81 mg chewable tablet Take 81 mg by mouth once daily. Disp: Rfl:NITROGLYCERIN BUCCAL Place between cheek and gum. Disp: Rfl:?No current facility-administered medications for this visit.?ALLERGIES: Hiolsop-Fda-Xco Reductase Inhibitors?PERSONAL HISTORY: SOCIAL?HISTORY Social History Marital status: Spouse name: Years of education: Number of children:?Social History Main Topics Smoking status: Current Every Day Smoker Packs/day: 0.50 Years: 40.00 Types: Cigarettes Smokeless status: Never Used Alcohol use: No Comment: Rarely Drug use: No?FAMILY HISTORY: FAMILY?HISTORYFAMILY HISTORYProblem Relation Age of Onset- Heart Mother ?- Diabetes Mother ?- Hypertension Mother ?- Hypertension Sister ?- Thyroid Sister ?- Asthma Sister ???REVIEW OF SYMPTOMS: The review of systems data was entered by the nurse and reviewed by me?Nursing Notes:Deonna Hoyt LPN 09/21/2017 2:13 PM SignedREVIEW OF SYSTEMS: General: The patient denies fatigue, denies weight loss, deniesweight gain, denies feeling hot, and denies feelings of cold. Eyes: The patient denies glaucoma, denies eye injury/surgery, wearsglasses or contacts. Ear/Nose/Throat: The patient denies allergies, NOTES hayfever,denies ear infections, and denies bloody noses. Cardiovascular: The patient denies chest pain, NOTES heart disease,NOTES high blood pressure,NOTES cardiac stent, denies prior heart attack,denies irregular heart beat, NOTES high cholesterol, denies poorcirculation, denies heart failure, other cardiac issues, deniesclaudication, denies cold feet, denies peripheral arterial stent. Respiratory: The patient denies tuberculosis, denies pneumonia,denies frequent cough, denies pulmonary embolism, denies shortness ofbreath, and denies coughing up blood. Gastrointestinal: The patient denies difficulty swallowing, deniesacid reflux, denies ulcers, NOTES vomiting, denies jaundice/hepatitis,NOTES gallbladder problems, denies black or tarry stools, denieshemorrhoids, denies bleeding from rectum, denies diverticulitis, deniesconstipation, denies diarrhea, denies loss of stool control, and denieshernias. Kidney/Bladder: The patient NOTES kidney stones, NOTES urineinfections, and NOTES bloody urine. Skin: The patient denies a history of skin cancer, deniesbleeding/changing moles, and denies a history of skin rash. Neurologic: The patient denies a history of epilepsy/convulsions,denies headaches, denies head/spinal injuries, and denies stroke/TIA. Psychiatric: The patient denies psychiatric medications, NOTESdepression, and denies voices, denies substance abuse. Endocrine: The patient NOTES thyroid disorders, denies diabetes, anddenies hormonal problems. Hematologic: The patient denies a history of bruising, deniesbleeding, and NOTES anemia, denies blood clots. Infections: The patient NOTES a history of measles and mumps, deniesrheumatic fever, and denies sexually transmitted diseases. Musculoskeletal: The patient NOTES back pain/injury, denies backproblems, NOTES sciatica, denies knee/foot trouble, denies arthritis, ordenies gout.??When was patient's last Mammogram screening? N/A? Last Colonoscopy: None?Deonna Hoyt LPN??PHYSICAL EXAMINATION:?General: The patient is 67 year old female, well nourished, well hydratedin no acute distress. The patient is oriented to time, place, and person.?VITALS: There were no vitals taken for this visit. There is no height orweight on file to calculate BMI.?HEENT: Normal cephalic, ataumatic, pupils are equally round, sclera areanicteric, mucous membranes are moist, oropharynx is clear. Neck has nomasses, asymmetry or lymphadenopathy. Thyroid is unremarkable.?Respiratory: Clear to auscultation and percussion. Normal respiratoryexcursion and pattern.?Cardiac: Examination is regular rate and rhythm.?Abdominal exam: Normoactive bowel sounds, Soft, tender in the right upperquadrant, with no palpable masses. No hepatosplenomegaly. No palpablehernias.?Rectal exam: exam deferred?Extremities: no clubbing, cyanosis or edema. No adenopathy.?Other:?LABORATORY VALUES: As Noted?RADIOLOGIC STUDIES: As Noted Above?AssessmentIMPRESSION: Biliary colic, Cholelithiasis?PLAN: My plan is to perform a laparoscopic cholecystectomy withintraoperative choleangiogram. The planned surgical procedure wasdiscussed extensively with the patient. The risks, benefits, anticipatedoutcomes and possible complications were mentioned. My staff has alsoexplained the procedure in understandable terms and the patient was giventhe option to take printed material concerning the planned procedure. Thepatient had the opportunity to ask questions concerning the plannedprocedure. The patient freely consents to the planned procedure.?She has a drug-eluting stent, but is currently only on aspirin. She willneed to continue the aspirin prior to surgery.?Planned Procedure: LAPAROSCOPIC CHOLECYSTECTOMY WITH INTRAOPERATIVECHOLEANGIOGRAM - [id number]?Planned antibiotic: Ancef 2gm IVPB nutrition internship to OR?SCDs needed - Yes?Hand Drawer In Needed - Yes?Diagnoses: (K80.50) Biliary colic (primary encounter diagnosis)(I25.10) Coronary artery disease involving [place] heart without anginapectoris, unspecified vessel or lesion type??My findings have been [facility] Sher[facility]os [facility]. This note will be forwarded to Dr. Sherri Villa MD.??? ____Satya Rosas MD [facility] NURSING PROGon 10-18-2017 NURSING PROG HNO ID: [id number] Author: Lisa (Rn) Janessa RN Service: (none) Author Type: Registered Nurse Type: Nursing Progress Note Filed: 10/18/2017 12:18 PM Note Text: No albuterol treatment given Dr.Khiin morrissey [facility] NURSING PROG HNO ID: [id number] thor: Lisa (Rn) Janessa, RNService: (none)Author Type: Registered NurseType: Nursing Progress NoteFiled: 10/18/2017 10:22 AMNote Text:States meds helped provide some relief from nausea (no emisis) and pain.Pt did not want pain med that would increase her nausea. [facility] OPERATIVE NOon 10-18-2017 OPERATIVE NO HNO ID: [id number] thor: Satya Collazoervice: General SurgeryAuthor Type: PhysicianType: Operative ReportFiled: 10/19/2017 5:16 PMNote Text:[facility]- Operative ReportZORAIDA BARTH JDOB: 1950 AGE: 67 SEX: FMRN: [id number] ACCTNUM: [id number] SVC: GENS LOCATION: [id number] PHYSICIAN: Satya Rosas M.D.DATE OF PROCEDURE: 10/18/2017SURGEON: Satya Rosas M.D.DIRECTOR OF PUBLIC WORKS: Kelvin CortezANESTHESIA: General endotracheal.PREOPERATIVE DIAGNOSIS(ES): Biliary colic and cholelithiasis.POSTOPERATIVE DIAGNOSIS(ES): Hydrops of the gallbladder. Normalcholangiogram with cystic duct entering from the left side of the duct.NAME OF OPERATION: Laparoscopic cholecystectomy with intraoperativecholangiogram.IND ICATIONS:ESTIMATED BLOOD LOSS: 25 mL.COMPLICATIONS: None.SPECIMENS: Gallbladder.DRAINS: None.URINE OUTPUT: No catheter.START TIME: 8:03.END TIME: 9:19.ASA: 3.ANESTHESIOLOGIST: Edouard Amos (canelo).IV FLUIDS: 1000 mL.DISPOSITION: The patient was taken to PACU in stable condition.FINDINGS: As described above.PROCEDURE: The patient was brought to the operating suite. Sign-in wasperformed verifying the patient, site, procedure, position, criticalnursing, VTE, and antibiotic prophylaxis. The patient has a history ofcoronary artery disease. She was maintained on aspirin preoperatively.She received 2 grams of Ancef and sequential compression device wasplaced. Following induction of general anesthetic, the patient's abdomenwas prepped and draped in usual fashion. Time- out was performedverifying the patient, site, procedure, and position. Local anestheticwas injected above the umbilicus. An incision made. Dissection wascarried down to fascia. Two stay sutures were placed on the fascia.Incision was made to fascia to the peritoneum under direct visualization. Shekhar trocar was inserted through a stay suture. Pneumoperitoneum to13 mmHg was insufflated. Three 5 mm ports were placed in position.Visual inspection revealed the adhesions over the liver. These weretaken down using cautery with Metzenbaum scissors. Following lysis ofall adhesions, the gallbladder was retracted upward and outward. Thegallbladder was distended and difficult to grasp. As dissection wascarried in the Calot's triangle, critical view of the cystic ductfunneling into the common bile duct with no signs of aberrant ductalstructures were seen and the cystic artery was clearly identified. Aclip was placed at the neck of the gallbladder and a partial ductotomywas made. Percutaneous cholangiocath was inserted through the clip.Intraoperative cholangiogram showed filling of the cystic duct enteringthe common bile duct from the left side, filling the common bile duct,filling the biliary radicals and emptying into the duodenum withoutobstruction. Clip and catheter were removed. Two clips placed in thecystic duct, cystic duct divided. The cystic artery was identified,doubly clipped proximally, singly clipped distally and divided.Gallbladder was resected from the gallbladder fossa using electrocautery. As dissection continued, the gallbladder was actually entered throughvery small near the dome of the gallbladder, then actually clear fluidconsistent with hydrops of the gallbladder came out. This was aspirated.The gallbladder was placed in the Endobag from the umbilical port site.0 Maxon aeqifz-ss-dezvr sutures placed on the port site defect.Gallbladder fossa was checked for hemostasis. Good hemostasis. The areawas irrigated and aspirated clear. Five ports were removed under directvisualization with no signs of bleeding. The pneumoperitoneum wasreleased. The umbilical fascia was secured. The skin was closed withinterrupted 4-0 Biosyn subcu sutures. Steri-Strips and dressing wereapplied. The patient tolerated the procedure well and brought torecovery room in stable condition.Satya Rosas M.D.General SurgeryRG:[id number]: 10/18/2017 09:24:54T: 10/18/2017 12:35:20Job #: [id number] [facility] PT EDon 10-18-2017 PT ED HNO ID: [id number] thor: Guero (Rn) HELEN Scottervice: NursingAuthor Type: Registered NurseType: Patient EducationFiled: 10/18/2017 12:46 PMNote Text:POST OP LEARNING RESPONSEINSTRUCTION PROVIDED TO: Patient and family memberMETHOD OF INSTRUCTION: Teach Back .Individual instructionWritten instruction - handoutsVerbal instructionPATIENT / FAMILY RESPONSE: Verbalizes understanding of: OAS-NRYROAREGZNBDYHLGPLMD-Oxcvw ct action to take to follow pre-procedure instructionsFOLLOW-UP PLAN: Complete - No need for follow-upSUPPLEMENTAL MATERIAL: NoneREFERRAL (RECOMMENDATION): NoneElectronically Signed By: Guero Scott RN [facility] PT ED HNO ID: [id number] thor: Nhung KruseRn) HELEN Fariaservice: (none)Author Type: Registered NurseType: Patient EducationFiled: 10/18/2017 6:20 AMNote Text:PRE OP LEARNING ASSESSMENTPROCEDURE/SURGERY: SURGERY: Laparoscopic Mary.READINESS TO LEARNCOGNITIVE ABILITY: Alert and orientedMOTIVATION TO LEARN: InterestedFAMILY SUPPORT: High - Very involved in pt carePATIENT LEARNS BEST BY: Verbal InstructionFACTORS AFFECTING LEARNING: NonePHYSICAL LIMITATIONS AFFECTING LEARNING: PainElectronically Signed By: Nhung Farias RN [facility] SURGICAL PATHOLOGYon 018 SURGICAL PATHOLOGY [facility]: [id number] Physician: SATYA ROSAS MD FINAL DIAGNOSISGallbladder, cholecystectomy - Chronic cholecystitis.- Cholelithiasis (gross examination only). ES/SS/srj 10/19/2017 Blaire Marin M.D.(Electronic Signature) SPECIMEN SUBMITTEDA: GALLBLADDER CLINICAL DATABILIARY COLIC, LMP: HYSTERECTOMY; PMPLAPAROSCOPIC CHOLECYSTECTOMY WITH GRAMS GROSS DESCRIPTIONA. Received in formalin is a 9.2 x 3.1 x 2.2 cm gallbladder. The serosalsurface is pink-brown, smooth and glistening with the exception of thecauterized hepatic bed. Opening of the gallbladder releases green-brownviscous bile and multiple calculi ranging from 1.1 to 1.2 cm in greatestdimension. No impaction of the cystic duct is identified. The gallbladdermucosa is brown-pink and velvety with an average wall thickness of 0.2 cm. Nopolyps or mass lesions are identified. The cystic duct margin andrepresentative sections of the body and fundus are submitted in A1.NEENA/viv 10/18/2017 Gross examination performed at [facility], [address] [place] [address] of Report: 10/19/2017Date of Procedure: 10/18/2017Date of Receipt: 10/18/2017Submitted by: SATYA ROSAS MDLocation: MEORDiagnostic interpretation performed at [facility], [address] [place], [place] [id number]. [facility] Comment on above: Performed By: #### P ATHS ####[facility] [id number] [place], [place] [id number] XR CHOLANGIOGRAM INTRAOPon 0 10-18-2017 Cholesterol * * *Final Report* * *DATE OF EXAM: Oct 18 2017 8:44AM MDR [id number] - XR CHOLANGIOGRAM INTRAOP / REASON: PAIN * * * * Physician Interpretation * * * * Operative cholangiography:Findings: Cine loop is submitted. No retained calculus is identified in the visualized ducts.DIAGNOSTIC imaging was performed using a total radiation exposure time of 0:08 min and an effective radiation dose of 2.0 mGy.[employer]p [employer]: PSCB Transcribe Date/Time: Oct 18 2017 9:29ADictated by : VERONICA GORDON MDThis examination was interpreted and the report reviewed and electronically signed by: VERONICA GORDON MD on Oct 18 2017 9:30AM [id number] [facility] NURSING PROGon 10-12-2017 INR Coag RelTime (Bld) HNO ID: [id number]: Krysten (Rn) HELEN Mejiaervice: (none)Author Type: Registered NurseType: Nursing Progress NoteFiled: 10/12/2017 11:24 AMNote Text:PACC Nurse Progress NoteHistory AND Physical:PACC Visit Date: 10/02/17Original HANDP Date: N/AED visit Date: N/AOutside HANDP Scanned Date: N/ALabs Within Last 6 Months:Within acceptable limits for planned procedureCBC: Date 10/02/17 Wbc's 12.01 down from 16BMP/CMP: Date 09/11/17HBA1C: Date 09/12/17 6.2UA: Date 10/01 negativeImaging Within Last 12 Months:CT Scan abd scanned in 09/28/17Cardiac Testing:EKG in last 12 Months: Yes: Date: 10/02/17, Comment: NSRLast Menstrual Period:LMP Date: unknownPostmenopausal >1yr: Yes,S/P Hysterectomy: YesBMI Percentile (PEDS):N/ARisk Assessment:Medical Date: scanned in [facility] 09/28/17 Dr Daythesikush Review:DOSNarrative:N/APre-op Considerations:CKD 3Pre-diabetesChart Check:Ayala Mejia RNMarch 2017 11:15 AM [facility] HOSPon 09-25-2017 HOSP Patient:Zoraida Barth JMRN: Height:5' 3"(1.6 m)Weight:204 lb (92.534 kg)Outpatient Medications as of 10/18/17:oxyCODONE-acetaminophen (PERCOCET) 5-325 mg tabletpromethazine (PHENERGAN) 25 mg tabletamLODIPine (NORVASC) 5 mg tabletmetoprolol succinate ER (TOPROL XL) 25 mg 24 hr tabletlisinopril (ZESTRIL, PRINIVIL) 20 mg tabletcitalopram (CELEXA) 20 mg tabletlevothyroxine (SYNTHROID) 125 mcg tabletibuprofen (MOTRIN) 200 mg tabletaspirin 81 mg chewable tabletNITROGLYCERIN BUCCALAdmission/Clinic Administered Medications as of 10/18/17:lactated ringers infusionceFAZolin iv piggyback 2 g in D5W (iso-osmotic) 100 mL (ANCEF)Problem List:Coronary artery disease involving [place] coronary artery of [place] heartwithout angina pectoris [I25.10]Essential hypertension [I10]Hypothyroidism [E03.9]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 Please call patient Monday morning. ?If still having pain, will add onurgently Monday. ?I have Cardiac clearance in my out boxMessage to call office.Lul Sol Surg Coord 09/25/2017 9:00 AM Signedpatent scheduled , called left message for patient this AM.09-25-2017 to see ow she was feeling to see if she needed to be added on soonerleft message Lul Sol Surg CoordProgress Notes ([facility]):Deonna Hoyt LPN 09/21/2017 2:[address] Stafford office to contact office. Patient needs lapcholecystectomy and needs clearance. They are to fax records or call office withstatus.Deonna Hoyt LPN 09/25/2017 8:54 AM SignedApproval received. [facility] Office Visit: Yair 03-31-20 17 Documentation of current medications (procedure) Done Invalid Interpretation Code Any.DO Work Phone: [phone] Fall risk assessment No Invalid Interpretation Code Any.DO Work Phone: [phone] Protein mass conc Done Any.DO Work Phone: [phone] Clinical Lists Update: Prelo value analyst 06-17-2016 Left ventricular Ejection fraction 65 % Invalid Interpretation Code Any.DO Work Phone: [phone] Lab Report: Lipid Profileon 01-21-2016 Cholesterol in HDL mass conc 43 mg/dL Invalid Interpretation Code Any.DO Work Phone: [phone] Cholesterol in LDL mass conc 203 mg/dL High 0-130 Any.DO Work Phone: [phone] Cholesterol mass conc 269 mg/dL High 200 Any.DO Work Phone: [phone] Lipoprotein.pre-bet a mass conc 23 mg/dL Invalid Interpretation Code 5-40 Any.DO Work Phone: [phone] Triglyceride mass conc 117 mg/dL Invalid Interpretation Code Any.DO Work Phone: [phone] Lab Report: Liver Profileon 01-21-2016 Albumin mass conc 3.8 g/dL Invalid Interpretation Code 3.4-5.0 Any.DO Work Phone: [phone] Alkaline phosphatase (ALP) 83 U/L Invalid Interpretation Code 50-136 Any[employer]DO Work Phone: [phone] ALP enzyme act/vol (Bld) 83 U/L 50-136 Any[employer]DO Work Phone: [phone] ALT enzyme act/vol 14 U/L Invalid Interpretation Code 12-78 Any[employer]DO Work Phone: [phone] AST enzyme act/vol 21 U/L Invalid Interpretation Code 15-37 [employer] Work Phone: [phone] Bilirubin mass conc 0.30 mg/dL Invalid Interpretation Code 0.20-1.00 [employer] Work Phone: [phone] Bilirubin.direct mass conc 0.08 mg/dL Invalid Interpretation Code 0.00-0.30 [employer] Work Phone: [phone] Globulin 3.9 g/dL High 2.3-3.5 [employer] Work Phone: [phone] Globulin mass conc (S) 3.9 g/dL High 2.3-3.5 [employer] Work Phone: [phone] Protein mass conc 7.7 g/dL Invalid Interpretation Code 6.4-8.2 Any[employer] Work Phone: [phone] Office Visiton 12-28-2015 Dietary management education, guidance, and counseling (procedure) yes Invalid Interpretation Code Any.DO Work Phone: [phone] Protein mass conc yes Any.DO Work Phone: [phone] Smoking cessation education (procedure) yes Invalid Interpretation Code Any.DO Work Phone: [phone] Tobacco smoking status NHIS Current every day smoker Any[employer]DO Work Phone: [phone] Tobacco use CPHS Current every day smoker Invali d Interpretation Code Any.DO Work Phone: [phone] Office Visiton 03-12-2015 cardiac risk group C Invalid Interpretation Code Any.DO Work Phone: [phone] General cardiovascular disease 10Y risk [#] [place] no N/A Invalid Interpretation Code Any.DO Work Phone: [phone] Vital Signs Date Time Vital Sign Value Performing Clinician Ashley hatch 09-18-2024 11:22-0500 Body mass index (BMI) [Ratio] 38.68 kg/m2 Zeynep Podlogar CONTRACTOR FIELD HA[employer]ING.ROLL COATING MACHINE OPERATOR Work Phone: [facility] 09-18-2024 11:22-0500 Body weight 96.8 kg Zeynep Podlogar CONTRACTOR FI[employer]ING.ROLL COATING MACHINE OPERATOR Work Phone: [facility] 09-18-2024 11:22-0500 Diastolic blood pressure 62 mm[Hg] Zeynep Podlogar CONTRACTOR FIELD HAULING.ROLL COATING MACHINE OPERATOR Work Phone: [facility] 09-18-2024 11:22-0500 Heart rate 70 /min Zeynep Podlogar CONTRACTOR FIELD HA[employer]ING.ROLL COATING MACHINE OPERATOR Work Phone: [facility] 09-18-2024 11:22-0500 Respiratory rate 18 /min Zeynep Podlogar CONTRACTOR FIELD HAULING.ROLL COATING MACHINE OPERATOR Work Phone: [facility] 09-18-2024 11:22-0500 SaO2% (BldA) [Mass fraction] 96 % Zeynep Podlogar CONTRACTOR FIELD HAULING.ROLL COATING MACHINE OPERATOR Work Phone: [facility] 09-18-2024 11:22-0500 Systolic blood pressure 98 mm[Hg] Zeynep Podlogar CONTRACTOR FIELD HAULING.ROLL COATING MACHINE OPERATOR Work Phone: [facility] 05-21-2024 10:35-0400 Diastolic blood pressure 79 mm[Hg] Flex Carrillo DO Work Phone: [facility] 05-21-2024 10:35-0400 Heart rate 60 /min Flex Carrillo DO Work Phone: [facility] 05-21-2024 10:35-0400 SaO2% (BldA) [Mass fraction] 98 % Flex Carrillo DO Work Phone: [facility] 05-21-2024 10:35-0400 Systolic blood pressure 138 mm[Hg] Flex Carrillo DO Work Phone: [facility] 05-15-2024 11:51-0400 Body height 158.2 cm Dean Dubois MD Work Phone: [facility] 05-15-2024 11:51-0400 Body mass index (BMI) [Ratio] 38.7 kg/m2 Dean Dubois MD Work Phone: [facility] 05-15-2024 11:51-0400 Body weight 96.85 kg Dean Dubois MD Work Phone: [facility] 05-15-2024 11:51-0400 Diastolic blood pressure 74 mm[Hg] Dean Dubois MD Work Phone: [facility] 05-15-2024 11:51-0400 Heart rate 59 /min Dean Dubois MD Work Phone: [facility] 05-15-2024 11:51-0400 Systolic blood pressure 144 mm[Hg] Dean Dubois MD Work Phone: [facility] 05-14-2024 13:52-0400 Body height 158.2 cm Micheal Dee DO Work Phone: [facility] 05-14-2024 13:52-0400 Body mass index (BMI) [Ratio] 38.6 kg/m2 Micheal Dee DO Work Phone: [facility] 05-14-2024 13:52-0400 Body weight 96.6 kg Micheal Dee DO Work Phone: [facility] 05-14-2024 13:52-0400 Diastolic blood pressure 81 mm[Hg] Micheal Dee DO Work Phone: [facility] 05-14-2024 13:52-0400 Heart rate 59 /min Micheal Dee DO Work Phone: [facility] 05-14-2024 13:52-0400 Systolic blood pressure 127 mm[Hg] Micheal Dee DO Work Phone: [facility] 04-19-2024 11:28-0400 Body mass index (BMI) [Ratio] 38.05 kg/m2 Zeynep Schmidt CONTRACTOR FIELD HAULING.ROLL COATING MACHINE OPERATOR Work Phone: [facility] 04-19-2024 11:28-0400 Body weight 95.9 kg Zeynep Schmidt CONTRACTOR FIELD HAULING.ROLL COATING MACHINE OPERATOR Work Phone: [facility] 04-19-2024 11:28-0400 Diastolic blood pressure 88 mm[Hg] Zeynep Roselogsheeba CONTRACTOR FIELD HAULING.ROLL COATING MACHINE OPERATOR Work Phone: [facility] 04-19-2024 11:28-0400 Heart rate 61 /min Zeynep Podlogar CONTRACTOR FIELD HAULING.ROLL COATING MACHINE OPERATOR Work Phone: [facility] 04-19-2024 11:28-0400 Respiratory rate 16 /min Zeynep Podlogar CONTRACTOR FIELD HAULING.ROLL COATING MACHINE OPERATOR Work Phone: [facility] 04-19-2024 11:28-0400 SaO2% (BldA) [Mass fraction] 98 % Zeynep Podlogar CONTRACTOR FIELD HAULING.ROLL COATING MACHINE OPERATOR Work Phone: [facility] 04-19-2024 11:28-0400 Systolic blood pressure 144 mm[Hg] Zeynep Podlogar CONTRACTOR FIELD HAULING.ROLL COATING MACHINE OPERATOR Work Phone: [facility] 03-18-2024 10:51-0400 Body mass index (BMI) [Ratio] 38.41 kg/m2 Sherri Davalos MD Work Phone: [facility] 03-18-2024 10:51-0400 Body weight 96.8 kg Sherri Davalos MD Work Phone: [facility] 03-18-2024 10:51-0400 Diastolic blood pressure 62 mm[Hg] Sherri Davalos MD Work Phone: [facility] 03-18-2024 10:51-0400 Heart rate 56 /min Sherri Davalos MD Work Phone: [facility] 03-18-2024 10:51-0400 Respiratory rate 18 /min Sherri Davalos MD Work Phone: [facility] 03-18-2024 10:51-0400 SaO2% (BldA) [Mass fraction] 96 % Sherri Davalos MD Work Phone: [facility] 03-18-2024 10:51-0400 Systolic blood pressure 126 mm[Hg] Sherri Davalos MD Work Phone: [facility] 03-11-2024 08:35-0400 Body mass index (BMI) [Ratio] 37.8 kg/m2 Elayne Mondragon CONTRACTOR FIELD HA[employer]ING.ROLL COATING MACHINE OPERATOR Work Phone: [facility] 03-11-2024 08:35-0400 Body weight 95.25 kg Elayne [place] CONTRACTOR FIELD HAULING.ROLL COATING MACHINE OPERATOR Work Phone: [facility] 03-11-2024 08:35-0400 Diastolic blood pressure 60 mm[Hg] Elayne [place] CONTRACTOR FIELD HAULING.ROLL COATING MACHINE OPERATOR Work Phone: [facility] 03-11-2024 08:35-0400 Heart rate 58 /min Elayne [place] CONTRACTOR FIELD HAULING.ROLL COATING MACHINE OPERATOR Work Phone: [facility] 03-11-2024 08:35-0400 Respiratory rate 17 /min Elayne [place] CONTRACTOR FIELD HAULING.ROLL COATING MACHINE OPERATOR Work Phone: [facility] 03-11-2024 08:35-0400 SaO2% (BldA) [Mass fraction] 95 % Elayne [place] CONTRACTOR FIELD HAULING.ROLL COATING MACHINE OPERATOR Work Phone: [facility] 03-11-2024 08:35-0400 Systolic blood pressure 108 mm[Hg] Elayne [place] CONTRACTOR FIELD HAULING.ROLL COATING MACHINE OPERATOR Work Phone: [facility] 12-12-2023 09:43-0400 Body mass index (BMI) [Ratio] 38.09 kg/m2 Sherri Davalos MD Work Phone: [facility] 12-12-2023 09:43-0400 Body weight 95.98 kg Sherri Davalos MD Work Phone: [facility] 12-12-2023 09:43-0400 Diastolic blood pressure 62 mm[Hg] Sherri Davalos MD Work Phone: [facility] 12-12-2023 09:43-0400 Heart rate 65 /min Sherri Davalos MD Work Phone: [facility] 12-12-2023 09:43-0400 Respiratory rate 18 /min Sherri Davalos MD Work Phone: [facility] 12-12-2023 09:43-0400 SaO2% (BldA) [Mass fraction] 94 % Sherri Davalos MD Work Phone: [facility] 12-12-2023 09:43-0400 Systolic blood pressure 120 mm[Hg] Sherri Davalos MD Work Phone: [facility] 10-30-2023 11:07-0400 Diastolic blood pressure 70 mm[Hg] Sherri Davalos MD Work Phone: [facility] 10-30-2023 11:07-0400 Heart rate 58 /min Sherri Davalos MD Work Phone: [facility] 10-30-2023 11:07-0400 Respiratory rate 18 /min Sherri Davalos MD Work Phone: [facility] 10-30-2023 11:07-0400 SaO2% (BldA) [Mass fraction] 98 % Sherri Davalos MD Work Phone: [facility] 10-30-2023 11:07-0400 Systolic blood pressure 128 mm[Hg] Sherri Davalos MD Work Phone: [facility] 06-12-2023 09:40-0400 Body weight 96.62 kg Zeynep Podlogar CONTRACTOR FIELD HAULING.ROLL COATING MACHINE OPERATOR Work Phone: [facility] 06-12-2023 09:40-0400 Diastolic blood pressure 58 mm[Hg] Zeynep Podlogar CONTRACTOR FIELD HAULING.ROLL COATING MACHINE OPERATOR Work Phone: [facility] 06-12-2023 09:40-0400 Heart rate 66 /min Zeynep Podlogar CONTRACTOR FIELD HAULING.ROLL COATING MACHINE OPERATOR Work Phone: [facility] 06-12-2023 09:40-0400 Respiratory rate 18 /min Zeynep Podlogar CONTRACTOR FIELD HAULING.ROLL COATING MACHINE OPERATOR Work Phone: [facility] 06-12-2023 09:40-0400 SaO2% (BldA) [Mass fraction] 95 % Zeynep Podlogar CONTRACTOR FIELD HAULING.ROLL COATING MACHINE OPERATOR Work Phone: [facility] 06-12-2023 09:40-0400 Systolic blood pressure 122 mm[Hg] Zeynep Podlogar CONTRACTOR FIELD HAULING.ROLL COATING MACHINE OPERATOR Work Phone: [facility] 06-05-2023 11:21-0400 Body height 158.8 cm Dean Dubois MD Work Phone: [facility] 06-05-2023 11:21-0400 Body weight 95.25 kg Dean Dubois MD Work Phone: [facility] 06-05-2023 11:21-0400 Diastolic blood pressure 60 mm[Hg] Dean Dubois MD Work Phone: [facility] 06-05-2023 11:21-0400 Heart rate 60 /min Dean Dubois MD Work Phone: [facility] 06-05-2023 11:21-0400 SaO2% (BldA) [Mass fraction] 100 % Dean Dubois MD Work Phone: [facility] 06-05-2023 11:21-0400 Systolic blood pressure 116 mm[Hg] Dean Dubois MD Work Phone: [facility] 03-28-2023 09:28-0400 Body weight 96.53 kg Sherri Davalos MD Work Phone: [facility] 03-28-2023 09:28-0400 Diastolic blood pressure 76 mm[Hg] Sherri Davalos MD Work Phone: [facility] 03-28-2023 09:28-0400 Heart rate 61 /min Sherri Davalos MD Work Phone: [facility] 03-28-2023 09:28-0400 Respiratory rate 16 /min Sherri Davalos MD Work Phone: [facility] 03-28-2023 09:28-0400 SaO2% (BldA) [Mass fraction] 95 % Sherri Davalos MD Work Phone: [facility] 03-28-2023 09:28-0400 Systolic blood pressure 140 mm[Hg] Sherri Davalos MD Work Phone: [facility] 03-22-2023 12:49-0400 Diastolic blood pressure 61 mm[Hg] [facility] 03-22-2023 12:49-0400 Heart rate 56 /min [facility] 03-22-2023 12:49-0400 Respiratory rate 18 /min [facility] 03-22-2023 12:49-0400 SaO2% (BldA) [Mass fraction] 92 % [facility] 03-22-2023 12:49-0400 Systolic blood pressure 128 mm[Hg] [facility] 03-22-2023 10:39-0400 Body height 160.02 cm [facility] 03-22-2023 10:39-0400 Body mass index (BMI) [Ratio] 37.2 kg/m2 [facility] 03-22-2023 10:39-0400 Body temperature 97.3 [degF] [facility] 03-22-2023 10:39-0400 Body weight 95.25 kg [facility] 03-09-2023 10:59-0400 Body weight 94.62 kg Sherri Davalos MD Work Phone: [facility] 03-09-2023 10:59-0400 Diastolic blood pressure 64 mm[Hg] Sherri Davalos MD Work Phone: [facility] 03-09-2023 10:59-0400 Heart rate 60 /min Sherri Davalos MD Work Phone: [facility] 03-09-2023 10:59-0400 Respiratory rate 18 /min Sherri Davalos MD Work Phone: [facility] 03-09-2023 10:59-0400 SaO2% (BldA) [Mass fraction] 97 % Sherri Davalos MD Work Phone: [facility] 03-09-2023 10:59-0400 Systolic blood pressure 112 mm[Hg] Sherri Davalos MD Work Phone: [facility] 02-14-2023 15:33-0400 Body height 157.48 cm [facility] 02-14-2023 15:33-0400 Body mass index (BMI) [Ratio] 37.5 kg/m2 [facility] 02-14-2023 15:33-0400 Body temperature 97 [degF] [facility] 02-14-2023 15:33-0400 Body weight 92.98 kg [facility] 02-14-2023 15:33-0400 Diastolic blood pressure 93 mm[Hg] [facility] 02-14-2023 15:33-0400 Heart rate 64 /min [facility] 02-14-2023 15:33-0400 Respiratory rate 14 /min [facility] 02-14-2023 15:33-0400 SaO2% (BldA) [Mass fraction] 94 % [facility] 02-14-2023 15:33-0400 Systolic blood pressure 146 mm[Hg] [facility] 01-26-2023 14:56-0400 Body weight 92.53 kg Sherri Davalos MD Work Phone: [facility] 01-26-2023 14:56-0400 Diastolic blood pressure 64 mm[Hg] Sherri Davalos MD Work Phone: [facility] 01-26-2023 14:56-0400 Heart rate 64 /min Sherri Davalos MD Work Phone: [facility] 01-26-2023 14:56-0400 Respiratory rate 18 /min Sherri Davalos MD Work Phone: [facility] 01-26-2023 14:56-0400 SaO2% (BldA) [Mass fraction] 94 % Sherri Davalos MD Work Phone: [facility] 01-26-2023 14:56-0400 Systolic blood pressure 122 mm[Hg] Sherri Davalos MD Work Phone: [facility] 12-02-2022 12:14-0400 Body height 157.5 cm Dean Dubois MD Work Phone: [facility] 12-02-2022 12:14-0400 Body weight 94.35 kg Dean Dubois MD Work Phone: [facility] 12-02-2022 12:14-0400 Diastolic blood pressure 62 mm[Hg] Dean Dubois MD Work Phone: [facility] 12-02-2022 12:14-0400 Heart rate 61 /min Dean Dubois MD Work Phone: [facility] 12-02-2022 12:14-0400 SaO2% (BldA) [Mass fraction] 95 % Dean Dubois MD Work Phone: [facility] 12-02-2022 12:14-0400 Systolic blood pressure 144 mm[Hg] Dena Dubois MD Work Phone: [facility] 10-21-2022 18:47-0500 Body temperature 98.1 [degF] Caren Praisler-Wood CONTRACTOR FIELD HAULING.ROLL COATING MACHINE OPERATOR Work Phone: [facility] 10-21-2022 18:47-0500 Body weight 96.25 kg Caren Praisler-Wood CONTRACTOR FIELD HAULING.ROLL COATING MACHINE OPERATOR Work Phone: [facility] 10-21-2022 18:47-0500 Diastolic blood pressure 72 mm[Hg] Caren Praisler-Wood CONTRACTOR FIELD HAULING.ROLL COATING MACHINE OPERATOR Work Phone: [facility] 10-21-2022 18:47-0500 Heart rate 66 /min Caren Praisler-Wood CONTRACTOR FIELD HAULING.ROLL COATING MACHINE OPERATOR Work Phone: [facility] 10-21-2022 18:47-0500 Respiratory rate 20 /min Caren Praisler-Wood CONTRACTOR FIELD HAULING.ROLL COATING MACHINE OPERATOR Work Phone: [facility] 10-21-2022 18:47-0500 SaO2% (BldA) [Mass fraction] 94 % Caren Praisler-Wood CONTRACTOR FIELD HAULING.ROLL COATING MACHINE OPERATOR Work Phone: [facility] 10-21-2022 18:47-0500 Systolic blood pressure 138 mm[Hg] Caren Praisler-Wood CONTRACTOR FIELD HAULING.ROLL COATING MACHINE OPERATOR Work Phone: [facility] 09-28-2022 11:16-0500 Body height 157.5 cm Sherri Davalos MD Work Phone: [facility] 09-28-2022 11:16-0500 Body weight 93.44 kg Sherri Davalos MD Work Phone: [facility] 09-28-2022 11:16-0500 Diastolic blood pressure 74 mm[Hg] Sherri Davalos MD Work Phone: [facility] 09-28-2022 11:16-0500 Heart rate 59 /min Sherri Davalso MD Work Phone: [facility] 09-28-2022 11:16-0500 Systolic blood pressure 125 mm[Hg] Sherri Davalos MD Work Phone: [facility] 07-27-2022 13:11-0500 Body height 157.5 cm Sherri Davalos MD Work Phone: [facility] 07-27-2022 13:11-0500 Body temperature 97.3 [degF] Sherri Davalos MD Work Phone: [facility] 07-27-2022 13:11-0500 Body weight 91.54 kg Sherri Davalos MD Work Phone: [facility] 07-27-2022 13:11-0500 Diastolic blood pressure 62 mm[Hg] Sherri Davalos MD Work Phone: [facility] 07-27-2022 13:11-0500 Heart rate 62 /min Sherri Davalos MD Work Phone: [facility] 07-27-2022 13:11-0500 Respiratory rate 18 /min Sherri Davalos MD Work Phone: [facility] 07-27-2022 13:11-0500 SaO2% (BldA) [Mass fraction] 96 % Sherri Davalos MD Work Phone: [facility] 07-27-2022 13:11-0500 Systolic blood pressure 130 mm[Hg] Sherri Davalos MD Work Phone: [facility] 12-24-2021 08:39-0400 Body height 161.3 cm Dean Dubois MD Work Phone: [facility] 12-24-2021 08:39-0400 Body weight 89.81 kg Dean Dubois MD Work Phone: [facility] 12-24-2021 08:39-0400 Diastolic blood pressure 64 mm[Hg] Dean Dubois MD Work Phone: [facility] 12-24-2021 08:39-0400 Heart rate 77 /min Dean Dubois MD Work Phone: [facility] 12-24-2021 08:39-0400 Systolic blood pressure 114 mm[Hg] Dean Dubois MD Work Phone: [facility] 11-24-2021 15:12-0400 Body height 157.[address] Osito Davalos Work Phone: [facility] Work Phone: 11-24-2021 15:12-0400 Body weight 90.[address] Osito Davalos Work Phone: [facility] Work Phone: 11-24-2021 15:12-0400 Diastolic blood pressure 62 mm[Hg] Dr. Osito Davalos Work Phone: [facility] Work Phone: 11-24-2021 15:12-0400 Heart rate 68 /min Dr. Osito Davalos Work Phone: [facility] Work Phone: 11-24-2021 15:12-0400 Respiratory rate 16 /min Dr. Osito Davalos Work Phone: [facility] Work Phone: 11-24-2021 15:12-0400 Systolic blood pressure 126 mm[Hg] Dr. Osito Davalos Work Phone: [facility] Work Phone: 02-03-2021 08:27-0400 Body mass index (BMI) [Ratio] 41.3 kg/m2 Dr. Osito Davalos Work Phone: [facility] Work Phone: 03-31-2017 08:46-0400 BMI (Body Mass Index) 35.53 kg/m2 [facility] Work Phone: 03-31-2017 08:46-0400 BP Diastolic 72 mm[Hg] [facility] Work Phone: 03-31-2017 08:46-0400 BP Systolic 140 mm[Hg] [facility] Work Phone: 03-31-2017 08:46-0400 Height 160.02 cm [facility] Work Phone: 03-31-2017 08:46-0400 Pulse (Heart Rate) 64 /min [facility] Work Phone: 03-31-2017 08:46-0400 Respiratory Rate 20 /min [facility] Work Phone: 03-31-2017 08:46-0400 Weight 90.99 kg [facility] Work Phone: 06-27-2016 11:13-0500 BSA (Body Surface Area) 1.96 m2 [facility] Work Phone: 06-27-2016 11:13-0500 Pulse Oximetry 98 % [facility] Work Phone: Encounters Encounter Date Encounter Type Care Provider Facility Start: 04-10-2025 End: 04-10-2025 [facility] Comment on above: Appointment Cancella tion Request Start: 04-10-2025 End: 04-10-2025 E-mail encounter from caregiver [facility] Provider V[facility] Surgery Start: 04-01-2025 End: 04-02-2025 Refill Shani Zamora APRN.CNP Work Phone: [facility] [place] Comment on above: Refill Request Start: 03-18-2025 End: 03-18-2025 ambulatory ZEYNEP PODLOGAR Facility:[facility] Start: 03-10-2025 End: 03-12-2025 Refill Shani Zamora APRN.ROLL COATING MACHINE OPERATOR Work Phone: [employer] Agency Manager Management Comment on above: Refill Request Start: 03-07-2025 End: 03-10-2025 Refill Shani Zamora APRN.ROLL COATING MACHINE OPERATOR Work Phone: [employer] Manager Management Comment on above: Refill Request Start: 03-06-2025 End: 03-07-2025 Refill Shani Zamora APRN.ROLL COATING MACHINE OPERATOR Work Phone: Employment Agency Manager Management Comment on above: Refill Request Start: 02-24-2025 End: 02-25-2025 Refill Sherri Davalos MD Work Phone: Employment Agency Manager Management Comment on above: Refill Request Start: 10-08-2024 End: 10-09-2024 Refill Sherri Davalos MD Work Phone: [facility] [place] Comment on above: Refill Request Start: 10-06-2024 End: 10-07-2024 Refill Shani Zamora APRN.ROLL COATING MACHINE OPERATOR Work Phone: [facility] [place] Comment on above: Refill Request Start: 09-23-2024 End: 11-23-2024 Follow-up encounter Zeynep Schmidt APRN.CNP Work Phone: [facility] [place] Start: 09-21-2024 End: 09-21-2024 ambulatory ZEYNEP SCHMIDT Facility:[facility] Start: 09-18-2024 End: 09-18-2024 Patient encounter procedure Zeynep Schmidt APRN.ROLL COATING MACHINE OPERATOR Work Phone: [facility] [place] Comment on above: Essential hypertensi on (Primary Dx); Type 2 diabetes mellitus with stage 3a chronic kidney disease, without long-term current use of insulin ([facility]); CKD stage 3b, GFR 30-44 ml/min ([facility]); Acquired hypothyroidism; Tobacco use disorder; Body mass index (BMI) 40.0-44.9, adult ([facility]); Abnormality of gait; Falling episodes; Statin intolerance; Mixed hyperlipidemia; Coronary artery disease involving [place] coronary artery of [place] heart without angina pectoris; Stented coronary artery; Tremor Start: 09-18-2024 End: 09-18-2024 ambulatory SHERRI DAVALOS Facility:[facility] Start: 09-10-2024 End: 09-10-2024 Refill Shani Knoble CONTRACTOR FIELD HAULING.ROLL COATING MACHINE OPERATOR Work Phone: [employer] Manager Management Comment on above: Refill Request Start: 09-09-2024 End: 09-10-2024 Refill Shani Knoble CONTRACTOR FIELD HAULING.ROLL COATING MACHINE OPERATOR Work Phone: [facility] [place] Comment on above: Refill Request Start: 08-27-2024 End: 08-27-2024 Refill Zeynep Podlogar CONTRACTOR FIELD HAULING.ROLL COATING MACHINE OPERATOR Work Phone: Employment Agency Manager Management Comment on above: Refill Request Start: 07-29-2024 End: 07-29-2024 Refill Zeynep Podlogar CONTRACTOR FIELD HAULING.ROLL COATING MACHINE OPERATOR Work Phone: [facility] Comment on above: Refill Request Start: 07-25-2024 End: 07-30-2024 Telephone encounter Dean Dubois MD Work Phone: Neurology Comment on above: Appointment Start: 07-18-2024 End: 07-18-2024 ambulatory Brooke Rao RN Employment Agency Manager Management Comment on above: CDM ([facility] Outreach Call) Start: 07-17-2024 End: 07-22-2024 ambulatory Sherri Davalos MD Work Phone: Internal Medicine [place] [phone] Start: 06-20-2024 End: 06-20-2024 ambulatory Brooke Rao RN Employment Agency Manager Management Comment on above: CDM (Community [facility] oring Outreach Call) Start: 05-22-2024 End: 05-22-2024 ambulatory Brooke Rao RN Employment Agency Manager Management Comment on above: CDM (Community Monit oring Outreach Call) Start: 05-21-2024 End: 05-21-2024 ambulatory FLEX CARRILLO Facility:[facility] Start: 05-21-2024 End: 05-21-2024 Patient encounter procedure Flex Carrillo DO Work Phone: Vascular Surgery Comment on above: Abdominal aortic ane urysm (AAA) without rupture, unspecified part (HCC) (Primary Dx); PAD (peripheral artery disease) ([facility]) Start: 05-15-2024 End: 05-15-2024 ambulatory DEAN DUBOIS Facility:[facility] Start: 05-15-2024 End: 05-15-2024 Patient encounter procedure Dean Dubois MD Work Phone: Neurology Comment on above: Tremor (Primary Dx) Start: 05-14-2024 End: 05-14-2024 ambulatory MICHEAL PRICE Facility:[facility] Start: 05-14-2024 End: 05-14-2024 Office outpatient new 60 minutes Micheal Price DO Work Phone: Kidney Medicine [facility] Comment on above: Primary hypertension (Primary Dx); CKD stage 3b, GFR 30-44 ml/min ([facility]) Start: 04-25-2024 End: 04-25-2024 ambulatory Alejandra Ricks [facility] Work Phone: [facility] Start: 04-25-2024 End: 04-25-2024 Patient encounter procedure Alejandra Ricks [facility] Work Phone: [facility] Start: 04-24-2024 End: 04-24-2024 ambulatory Brooke Rao RN Employment Agency Manager Management Comment on above: CDM (Community Monit oring Outreach Call) Start: 04-23-2024 End: 04-23-2024 ambulatory Brooke Rao RN Employment Agency Manager Management Comment on above: CDM (Community Monit oring Outreach Call) Start: 04-22-2024 End: 04-22-2024 ambulatory ZEYNEP PODLOGAR Facility:[facility] Start: 04-22-2024 End: 04-22-2024 Subsequent hospital visit by physician [facility] Work Phone: Radiology Comment on above: Abdominal aortic ane urysm (AAA) without rupture, unspecified part ([facility]) [I71.40] Start: 04-19-2024 End: 04-19-2024 Subsequent hospital visit by physician Eugenio [facility] [place] Work Phone: Radiology Comment on above: Bilateral hip pain [ M25.551, M25.552] Start: 04-19-2024 End: 04-19-2024 ambulatory ZEYNEP PODLOGAR Facility:[facility] Start: 04-19-2024 End: 04-19-2024 Patient encounter procedure Zeynep Schmidt CONTRACTOR FIELD HAULING.ROLL COATING MACHINE OPERATOR Work Phone: [facility] [place] Comment on above: Fall, initial encoun ter (Primary Dx); Bilateral hip pain; Lumbar back pain Start: 04-18-2024 End: 04-18-2024 ambulatory Brooke Rao x ray developerEmployment Agency Manager Management Comment on above: CDM (Community Mon[facility] oring Outreach Call) Start: 04-10-2024 End: 04-10-2024 Refill Shani Zamora CONTRACTOR FIELD HAULING.ROLL COATING MACHINE OPERATOR Work Phone: [facility] [place] Comment on above: Refill Request Start: 04-04-2024 End: 04-05-2024 Refill Sherri Davalos MD Work Phone: [facility] [place] Comment on above: Refill Request Start: 03-22-2024 End: 04-22-2024 Telephone encounter Sherri Davalos MD Work Phone: [facility] [place] Start: 03-20-2024 ambulatory Brooke Rao RN [facility] Care Management Comment on above: CDM (Community Monit oring Outreach Call) Start: 03-19-2024 Telephone encounter Osito Davalos MD Work Phone: [facility] [place] Comment on above: Results Start: 03-18-2024 End: 03-18-2024 Patient encounter procedure Sherri Davalos MD Work Phone: [facility] [place] Comment on above: Type 2 diabetes jimy itus with stage 3a chronic kidney disease, without long-term current use of insulin (HCC) (Primary Dx); Stage 3a chronic kidney disease (HCC); Essential hypertension; Leukocytosis, unspecified type; Acquired hypothyroidism; Tobacco use disorder Start: 03-15-2024 Refill Sherri Davalos MD Work Phone: Employment [employer] Manager Management Comment on above: Refill Request Start: 03-11-2024 End: 03-11-2024 Patient encounter procedure Elayne Mondragon APRN.ROLL COATING MACHINE OPERATOR Work Phone: Pulmonary Medicine Comment on above: Screening for lung c ancer (Primary Dx); Tobacco use disorder Start: 03-08-2024 Telephone encounter Osito Davalos MD Work Phone: [facility] Comment on above: Appointment (To disc uss lab results and her routine 3 mos f/u) Start: 03-06-2024 Refill Sherri Davalos MD Work Phone: Employment Agency Manager Management Comment on above: Refill Request Start: 02-24-2024 Refill Sherri Davalos MD Work Phone: Employment Agency Manager Management Comment on above: Refill Request Start: 02-21-2024 ambulatory Brooke Mendoza latory Care Management Comment on above: CDM (Community Monit oring Outreach Call) Start: 01-22-2024 ambulatory Brooke Mendoza latory Care Management Comment on above: CDM (Community Monit oring Outreach Call) Start: 12-27-2023 ambulatory Brooke Mendoza latory Care Management Comment on above: CDM (Community Monit oring Outreach Call) Start: 12-12-2023 End: 12-12-2023 Patient encounter procedure Sherri Davalos MD Work Phone: [facility] Comment on above: Medicare annual well ness visit, subsequent (Primary Dx); Essential hypertension; Screening for lung cancer; Tobacco use disorder; Encounter for immunization; Body mass index (BMI) 40.0-44.9, adult ([facility]); Type 2 diabetes mellitus with stage 3a chronic kidney disease, without long-term current use of insulin ([facility]) Start: 12-07-2023 End: 12-07-2023 ambulatory Fatuma Yang PT [facility] Comment on above: Acute hip pain, left (Primary Dx) Start: 12-05-2023 End: 12-05-2023 ambulatory Michelle Lynch WAD IMPREGNATOR Work Phone: [facility] Comment on above: Acute hip pain, left (Primary Dx) Start: 11-29-2023 ambulatory Brooke Mendoza latory Care Management Comment on above: CDM (Community Monit oring Outreach Call) Start: 11-23-2023 End: 11-23-2023 ambulatory Fatuma O'Peterson PT [facility] Comment on above: Acute hip pain, left (Primary Dx) Refill Request Start: 11-20-2023 End: 11-20-2023 ambulatory Fatuma O'Peterson PT [facility] Comment on above: Acute hip pain, left (Primary Dx) Start: 11-16-2023 End: 11-16-2023 ambulatory Michelle Lynch WAD IMPREGNATOR Work Phone: [facility] Comment on above: Acute hip pain, left (Primary Dx) Start: 11-14-2023 End: 11-14-2023 ambulatory Fatuma O'Peterson PT [facility] Comment on above: Acute hip pain, left (Primary Dx) Start: 11-02-2023 End: 11-02-2023 ambulatory Fatuma O'Peterson PT [facility] Comment on above: Acute hip pain, left (Primary Dx) Start: 11-01-2023 ambulatory Brooke Mendoza [facility] Care Management Comment on above: CDM (Community Monit ori Outreach Call/) Start: 10-31-2023 Telephone encounter Osito Davalos MD Work Phone: [facility] Medicine [place] Comment on above: Insurance Authorizat ion Start: 10-30-2023 Telephone encounter Osito Davalos MD Work Phone: [facility] [place] Comment on above: Results Start: 10-30-2023 End: 10-30-2023 Subsequent hospital visit by physician [facility] Work Phone: Radiology Comment on above: Acute hip pain, left [M25.552] Start: 10-30-2023 End: 10-30-2023 Patient encounter procedure Sherri Davalos MD Work Phone: [facility] [place] Comment on above: Acute hip pain, left (Primary Dx) Start: 10-18-2023 End: 10-18-2023 ambulatory Osito Davalos Facility:[facility] Start: 10-12-2023 Telephone encounter Dean arana MD Work Phone: Neurology Comment on above: Patient Question Start: 10-11-2023 End: 10-11-2023 ambulatory Alejandra Ricks [facility] Work Phone: [facility] Comment on above: Medication managemen t (Primary Dx) Start: 10-11-2023 End: 10-11-2023 Telemedicine consultation with patient Alejandra Ricks [facility] Work Phone: [facility] Start: 10-05-2023 ambulatory Bernice Orozco RN Work Phone: Employment Agency Manager Management Comment on above: Community Monitoring Outreach (CDM Telephonic Outreach - Escalation ) Start: 10-05-2023 Telephone encounter Alejandra jin [facility] Work Phone: [facility] Comment on above: Medication Question ([facility] community outreach) Start: 10-04-2023 ambulatory Bernice Orozco RN Work Phone: Employment Agency Manager Management Comment on above: Community Monitoring Outreach (CDM Telephonic Outreach - Routine ) Start: 10-04-2023 Phys/qhp telephone evaluation 11-20 min Mary Toney CONTRACTOR FIELD HAULING.ROLL COATING MACHINE OPERATOR Work Phone: [facility] Comment on above: Eye abnormalities (P rimary Dx); Drowsy Start: 09-14-2023 Refill Sherri Davalos MD Work Phone: Employment Agency Manager Management Comment on above: Refill Request Start: 08-02-2023 ambulatory Sherri Davalos MD Work Phone: [facility] [place] Start: 07-27-2023 Telephone encounter Osito Davalos MD Work Phone: [facility] [place] Comment on above: Insurance Questions Start: 07-13-2023 ambulatory Bernice Orozco RN Work Phone: Employment Agency Manager Management Comment on above: Community Monitoring Outreach (CDM Telephonic Outreach - Routine ) Start: 06-12-2023 End: 06-12-2023 Patient encounter procedure Zeynep Schmidt CONTRACTOR FIELD HAULING.ROLL COATING MACHINE OPERATOR Work Phone: [facility] [place] Comment on above: Essential hypertensi on (Primary Dx); Encounter for immunization; Coronary artery disease involving [place] coronary artery of [place] heart without angina pectoris; Type 2 diabetes mellitus with stage 3a chronic kidney disease, without long-term current use of insulin (HCC); Mild chronic obstructive pulmonary disease (HCC); Body mass index (BMI) 40.0-44.9, adult (HCC); Mixed hyperlipidemia; Tremor Start: 06-05-2023 End: 06-05-2023 Patient encounter procedure Dean Dubois MD Work Phone: Neurology Comment on above: Tremor (Primary Dx) Start: 04-19-2023 ambulatory Bernice Orozco RN Work Phone: Employment Agency Manager Management Comment on above: Community Monitoring Outreach (M Telephonic Outreach - Routine ) Start: 04-13-2023 End: 04-13-2023 ambulatory Joe Castillo PT Work Phone: [facility] Comment on above: Chronic bilateral lo w back pain with bilateral sciatica (Primary Dx) Start: 04-04-2023 End: 04-04-2023 ambulatory Michelle Lynch WAD IMPREGNATOR Work Phone: [facility] Comment on above: Chronic bilateral lo w back pain with bilateral sciatica (Primary Dx) Start: 03-29-2023 Refill Sherri Davalos MD Work Phone: [facility] Comment on above: Refill Request Start: 03-28-2023 End: 03-28-2023 Patient encounter procedure Sherri Davalos MD Work Phone: [facility] Comment on above: Chest pain, unspecif ied type (Primary Dx); Coronary artery disease involving [place] coronary artery of [place] heart without angina pectoris; Essential hypertension; Mixed hyperlipidemia Start: 03-24-2023 ambulatory Bernice Orozco RN Work Phone: [facility] Start: 03-24-2023 Follow-up encounter Bernice guerra RN Work Phone: Employment Agency Manager Management Comment on above: Community Monitoring Outreach ([facility] ED Follow Up /// CDM Telephonic Outreach - Routine ) Start: 03-23-2023 ambulatory Bernice Orozco RN Work Phone: Employment Agency Manager Management Comment on above: Community Monitoring Outreach (CDM Telephonic Outreach - Routine ) Start: 03-22-2023 End: 03-22-2023 ambulatory Joekarlene Delatorreias PT Work Phone: [facility] Comment on above: Chronic bilateral lo w back pain with bilateral sciatica (Primary Dx) Start: 03-22-2023 End: 03-22-2023 [facility]: Start: 03-20-2023 End: 03-20-2023 ambulatory Joe Golias PT Work Phone: [facility] Comment on above: Chronic bilateral lo w back pain with bilateral sciatica (Primary Dx) Start: 03-09-2023 End: 03-09-2023 Patient encounter procedure Sherri Davalos MD Work Phone: [facility] Comment on above: Chronic bilateral lo w back pain without sciatica (Primary Dx); Onychomycosis Start: 02-22-2023 ambulatory Bernice Orozco RN Work Phone: Employment Agency Manager Management Comment on above: Community Monitoring Outreach (CDM Telephonic Outreach - Routine ) Start: 02-21-2023 ambulatory Bernice Orozco RN Work Phone: Employment Agency Manager Management Comment on above: Community Monitoring Outreach (CDM Telephonic Outreach - Routine ) Start: 02-15-2023 Telephone encounter Osito Davalos MD Work Phone: [facility] Comment on above: ER F/U Start: 02-14-2023 End: 02-14-2023 [facility] Work Phone: Start: 02-14-2023 End: 02-14-2023 Patient encounter procedure Hilario Howard CONTRACTOR FIELD HAULINGJulyROLL COATING MACHINE OPERATOR Work Phone: [facility] Comment on above: Procedure not jannet d out (Primary Dx) Start: 01-27-2023 Telephone encounter Osito Davalos MD Work Phone: [facility] [place] Comment on above: Results Start: 01-26-2023 End: 01-26-2023 Patient encounter procedure Sherri Davalos MD Work Phone: [facility] [place] Comment on above: Type 2 diabetes jimy itus with stage 3a chronic kidney disease, without long-term current use of insulin (HCC) (Primary Dx); Onychomycosis; Coronary artery disease involving [place] coronary artery of [place] heart without angina pectoris; Essential hypertension; Mild episode of recurrent major depressive disorder (HCC); Horseshoe kidney; Stage 3a chronic kidney disease (HCC); Acquired hypothyroidism; Tobacco use disorder; Mild chronic obstructive pulmonary disease (HCC); Body mass index (BMI) 40.0-44.9, adult (HCC); Parkinsonism, unspecified Parkinsonism type (HCC) Start: 01-24-2023 Telephone encounter Dean arana MD Work Phone: Neurology Comment on above: Orders ([facility] Request) Start: 12-26-2022 ambulatory Monika Ley RN Work Phone: Employment Agency Manager Management Comment on above: community monitoring outreach (CDM outreach) Start: 12-02-2022 End: 12-02-2022 Patient encounter procedure Dean Dubois MD Work Phone: Neurology Comment on above: Tremor (Primary Dx) Start: 11-28-2022 ambulatory Monika Ley RN Work Phone: Employment Agency Manager Management Comment on above: community monitoring outreach (CDM outreach) Start: 11-24-2022 ambulatory Himanshu ([facility] [place] Comment on above: Population Health Na vigation Outreach ([facility] care gap) Start: 11-24-2022 Refill Dean Dubois MD Work Phone: Neurology Comment on above: Refill Request Start: 11-01-2022 Telephone encounter Xenia Pool Navigation Comment on above: Advance Directives A ssist Start: 10-31-2022 ambulatory Monika Ley RN Work Phone: Employment Agency Manager Management Comment on above: community monitoring outreach (CDM outreach) Start: 10-21-2022 End: 10-21-2022 Patient encounter procedure Caren DamonJoe VALLEJO Work Phone: [facility] Comment on above: Sore throat (Primary Dx); Viral URI Start: 10-03-2022 ambulatory Monika Ley RN Work Phone: Employment Agency Manager Management Comment on above: community monitoring outreach (Telephonic questionnaire) Start: 09-28-2022 End: 09-28-2022 Patient encounter procedure Sherri Davalos MD Work Phone: [facility] [place] Comment on above: Mild episode of recu rrent major depressive disorder (HCC) (Primary Dx); Tobacco use disorder; Type 2 diabetes mellitus with stage 3a chronic kidney disease, without long-term current use of insulin (HCC) Start: 09-07-2022 Refill M Diego Molina on PA-C Work Phone: [facility] [place] Comment on above: Refill Request Start: 09-05-2022 ambulatory Monika Ley RN Work Phone: Employment Agency Manager Management Comment on above: community monitoring outreach (Telephonic questionnaire) Start: 08-24-2022 ambulatory Sherri Davalos MD Work Phone: Internal Medicine [facility] Start: 08-10-2022 ambulatory Monika Ley RN Work Phone: Employment Agency Manager Management Comment on above: community monitoring outreach (Telephonic questionnaire) Start: 08-09-2022 ambulatory Monika Ley RN Work Phone: Employment Agency Manager Management Comment on above: community cominitori ng outreach (Telephonic questionnaire) Start: 07-27-2022 End: 07-27-2022 Patient encounter procedure Sherri Davalos MD Work Phone: [facility] [place] Comment on above: Annual physical exam (Primary Dx); Viral URI with cough; Diabetes type II (HCC); Essential hypertension; Stage 3a chronic kidney disease (HCC); Horseshoe kidney; Mild episode of recurrent major depressive disorder (HCC); Acquired hypothyroidism; Coronary artery disease involving [place] coronary artery of [place] heart without angina pectoris; Tobacco use disorder; Need for COVID-19 vaccine; Advance directive discussed with patient Start: 07-11-2022 ambulatory Monika Ley RN Work Phone: Employment Agency Manager Management Comment on above: community monitoring outreach (Telephonic questionnaire) Start: 07-11-2022 Telephone encounter Zeynep Ashley fernandez APRN.ROLL COATING MACHINE OPERATOR Work Phone: [facility] [place] Comment on above: Orders Start: 06-14-2022 ambulatory Monika Ley RN Work Phone: Employment Agency Manager Management Comment on above: community monitoring outreach (Telephonic questionnaire) Start: 05-30-2022 Refill Dean Dubois MD Work Phone: Neurology Comment on above: Refill Request Start: 05-23-2022 Telephone encounter Osito Davalos MD Work Phone: [facility] [place] Comment on above: Results Start: 05-19-2022 Refill Sherri Davalos MD Work Phone: [facility] [place] Comment on above: Refill Request Start: 04-28-2022 ambulatory Monika Ley RN Work Phone: Family [facility] Comment on above: community monitoring outreach (enrollment) Start: 03-29-2022 ambulatory Sherri Davalos MD Work Phone: [facility] [place] Start: 03-28-2022 Telephone encounter Osito Davalos MD Work Phone: [facility] [place] Comment on above: Patient Question; Ap pointment Start: 02-23-2022 ambulatory Carla Miles [facility] [place] Comment on above: Population Health Na vigation Outreach ([place] Care Gaps) Start: 02-17-2022 Refill Sherri Davalos MD Work Phone: [facility] [place] Comment on above: Refill Request Start: 01-28-2022 Refill Sherri Davalos MD Work Phone: [facility] [place] Comment on above: Refill Request Start: 12-24-2021 End: 12-24-2021 Patient encounter procedure Dean Dubois MD Work Phone: Neurology Comment on above: Tremor (Primary Dx) Start: 12-09-2021 End: 12-09-[address] Osito Davalos Work Phone: [facility] Start: 11-24-2021 End: 11-24-[address] Osito Davalos Work Phone: [facility] [facility] Start: 10-18-2017 Ambulatory SATYA Lowe HARRIETT [facility] Procedures Date Procedure Procedure Detail Performing Clinician Start: 05-14-2024 Urnls dip stick/tablet rgnt auto w/o microscopy Micheal Price DO Work Phone: Start: 04-22-2024 Us retroperitoneal real time w/image limited Zeynep Podlogar CONTRACTOR FIELD HAULING.ROLL COATING MACHINE OPERATOR Work Phone: Start: 04-19-2024 Radex hips bilateral with pelvis minimum 5 views Zeynep Podlogar CONTRACTOR FIELD HAULING.ROLL COATING MACHINE OPERATOR Work Phone: Start: 12-12-2023 PFIZER-BIONTECH COVID-19 VACCINE ( SEASON) AGE 12+ YR Sherri Davalos MD Work Phone: Start: 10-30-2023 Radex hip unilateral with pelvis 2-3 views Sherri Davalos MD Work Phone: Start: 06-12-2023 INFLUENZA VACCINE, PRSV FREE, AGE 65+ YR, HIGH DOSE, QUADRIVALENT (FLUZONE HIGH-DOSE) Zeynep Podlogar CONTRACTOR FIELD HAULING.ROLL COATING MACHINE OPERATOR Work Phone: Start: 06-12-2023 PFIZER-BIONTECH COVID-19 VACCINE ( SEASON) AGE 12+ YR Zeynep Podlogar CONTRACTOR FIELD HAULING.ROLL COATING MACHINE OPERATOR Work Phone: Start: 03-22-2023 Plain chest X-ray Start: 10-21-2022 STREP A MOLECULAR (POC) [facility] Provider Start: 07-27-2022 PFIZER-BIONTECH COVID-19 BIVALENT BOOSTER VACCINE, AGE 12+ YR Sherri Davalos MD Work Phone: Start: 08-13-2020 Mammography Dean Dubois MD Work Phone: Start: 03-31-2017 End: 03-31-2017 Follow Up Appt 6 months Rafael Tineo FITNESS COORDINATOR Work Phone: Start: 03-31-2017 End: 03-31-2017 PFM Rafael Tineo FITNESS COORDINATOR Work Phone: Start: 06-27-2016 End: 06-27-2016 Follow Up Appt 6 months Alix dominguez PA-C Work Phone: Start: 06-27-2016 End: 06-27-2016 PFM Alix [facility] PA-C Work Phone: Start: 12-28-2015 End: 12-28-2015 Dietary management education, guidance, and counseling Emy Ureña Start: 12-28-2015 End: 01-21-2016 *Hepatic Function Panel Jose Delgado MD Start: 12-28-2015 End: 12-29-2015 Follow Up Appt 6 months Jose Delgado MD Start: 12-28-2015 End: 01-21-2016 Lipid panel [AGGREGATE] Jose Delgado MD Start: 12-28-2015 End: 12-29-2015 MMM Jose Delgado MD Start: 06-10-2015 End: 06-11-2015 Documentation of current medications Alix [facility] PA-C Work Phone: Start: 06-10-2015 End: 06-11-2015 Follow Up Appt 6 months Alix dominguez PA-C Work Phone: Start: 06-10-2015 End: 06-11-2015 Follow Up Appt Other Alix sen PA-C Work Phone: Start: 06-10-2015 End: 06-11-2015 PFM Alix Butler PA-C Work Phone: Start: 06-10-2015 End: 06-11-2015 Smoking cessation education Alix Ray PA-C Work Phone: Start: 03-12-2015 End: 03-13-2015 Documentation of current medications Jose Delgado MD Start: 03-12-2015 End: 06-03-2015 Follow Up Appt 3 months Jose Delgado MD Start: 03-12-2015 End: 06-03-2015 MMM Jose Delgado MD Start: 03-12-2015 End: 03-13-2015 Smoking cessation education Jose larsen MD Start: 01-19-2015 End: 01-19-2015 Nurse, Teaching, Wound Check (no charge) Jose Delgado MD Start: 01-19-2015 Percutaneous transluminal coronary angioplasty Coronary artery disease, S/P PTCA Emy Ureña Plan of Treatment Date Care Activity Detail Author Start: 12-13-2034 Urine microalbumin profile DTaP,Tdap,Td Vaccine (2 - Td or Tdap) [facility] Start: 03-18-2026 Annual PCP Team Manager Training lino Disease Visit Annual PCP Team Chronic Disease Visit [facility] Start: 03-18-2026 Complete blood count Hemoglobin/Gennaro tocrit [facility] Start: 03-18-2026 Creatinine measurement Serum Creatin ine [facility] Start: 03-18-2026 Diabetic foot examination Diabetic Foot Exam [facility] Start: 03-18-2026 Screening for malign ant neoplasm of lung Lung Cancer Screening [facility] Comment on above: Postponed from 03/27 (Declined at this time) Start: 09-21-2025 Creatinine measurement Serum Creatin ine [facility] Start: 09-21-2025 Hepatitis B surface antibody level LDL Cholesterol [facility] Start: 09-18-2025 Annual PCP Team Manager Training lino Disease Visit Annual PCP Team Chronic Disease Visit [facility] Start: 09-18-2025 BP Controlled (<130/80) BP Controlle d (<130/80) [facility] Start: 02-05-2026 Hemoglobin A1c measurement HbA1C [facility] Start: 09-18-2025 End: 09-18-2025 Patient encounter procedure 09/18/2025 10:00 AM EST Office Visit [facility] [address] [place] [id number] Sherri Davalos MD [address] [place] [id number] 6 month follow up [facility] [place] Comment on above: 6 month follow up Start: 05-21-2025 End: 05-21-2025 US Abdominal Aorta US ABD AORTA COMPLETE VAS LAB Vascular Lab Routine Abdominal aortic aneurysm (AAA) without rupture, unspecified part (HCC) Expected: 05/21/2025, Expires: 05/21/2025 [facility] Work Phone: Comment on above: Expected: 05/21/2025 , Expires: 05/21/2025 Start: 05-21-2025 End: 05-21-2025 US.doppler Extremity arteries - bilateral for physiologic artery study at rest and with exercise PVR LEG W/EXC DM VAS LAB Vascular Lab Routine PAD (peripheral artery disease) (HCC) Expected: 05/21/2025, Expires: 05/21/2025 [facility] Comment on above: Expected: 05/21/2025 , Expires: 05/21/2025 Start: 05-16-2025 End: 05-16-2025 Patient encounter procedure Neurology Comment on above: yearly follow up Start: 05-14-2025 Hepatitis B screening Urine Albumin:Creatinine Ratio [facility] Start: 04-22-2025 End: 04-22-2025 Patient encounter procedure 04/22/2025 8:15 AM EDT Appointment Ambulatory Surgery [address] [place], [place] [id number] Christina Barraza MD [address] [place] [id number] Screening for colon cancer [Z12.11] Ambulatory Surgery Comment on above: Screening for colon cancer [Z12.11] Start: 04-19-2025 Annual PCP Team Manager Training lino Disease Visit Annual PCP Team Chronic Disease Visit [facility] Start: 04-15-2025 End: 04-15-2025 Patient encounter procedure Vascular Surgery Comment on above: ABD PVR Follow up 1 year Start: 04-14-2025 Influenza vaccination Influenza Vacc ine (#1) [facility] Start: 04-02-2025 Glaucoma screening Dilated Retinal E xam [facility] Start: 03-21-2025 Hemoglobin A1c measurement HbA1C [facility] Start: 03-18-2025 Annual PCP Team Manager Training lino Disease Visit Annual PCP Team Chronic Disease Visit [facility] Start: 03-18-2025 BP Controlled (<130/80) BP Controlle d (<130/80) [facility] Start: 03-18-2025 Complete blood count Hemoglobin/Gennaro tocndt [facility] Start: 03-18-2025 Creatinine measurement Serum Creatin ine [facility] Start: 03-18-2025 Diabetic foot examination Diabetic Foot Exam [facility] Start: 03-18-2025 End: 03-18-2025 Patient encounter procedure [facility] [place] Comment on above: 6 month follow up Start: 03-11-2025 BP Controlled (<130/80) BP Controlle d (<130/80) [facility] Start: 03-06-2025 Complete blood count [facility] Start: 03-06-2025 Creatinine measurement Serum Creatin ine [facility] Start: 03-06-2025 Hepatitis B screening Urine Albumin:Creatinine Ratio [facility] Start: 12-11-2024 Annual PCP Team Manager Training lino Disease Visit Annual PCP Team Chronic Disease Visit [facility] Start: 12-11-2024 BP Controlled (<130/80) BP Controlle d (<130/80) [facility] Start: 12-11-2024 Zoledronic acid therapy Alpha- 1 Antitrypsin Deficiency Screening [facility] Comment on above: Postponed from 03/27 (Declined at this time) Start: 10-29-2024 Annual PCP Team Manager Training lino Disease Visit Annual PCP Team Chronic Disease Visit [facility] Start: 10-29-2024 BP Controlled (<130/80) BP Controlle d (<130/80) [facility] Start: 10-21-2024 Covid-19 Vaccine () Covid-19 Vaccine () [facility] Start: 09-18-2024 End: 12-18-2024 Comprehensive metabolic 2000 panel - Serum or Plasma COMPREHENSIVE METABOLIC PANEL Lab Routine Type 2 diabetes mellitus with stage 3a chronic kidney disease, without long-term current use of insulin (HCC) Expected: 09/18/2024, Expires: 12/18/2024 [facility] Comment on above: Expected: 09/18/2024 , Expires: 12/18/2024 Start: 09-18-2024 End: 12-18-2024 Hemoglobin A1c in Blood HEMOGLOBIN A1C Lab Routine Type 2 diabetes mellitus with stage 3a chronic kidney disease, without long-term current use of insulin (HCC) Expected: 09/18/2024, Expires: 12/18/2024 [facility] Work Phone: Comment on above: Expected: 09/18/2024 , Expires: 12/18/2024 Start: 09-18-2024 End: 12-18-2024 Lipid 1996 panel - Serum or Plasma LIPID PANEL BASIC Lab Routine Type 2 diabetes mellitus with stage 3a chronic kidney disease, without long-term current use of insulin (HCC) Expected: 09/18/2024, Expires: 12/18/2024 [facility] Comment on above: Expected: 09/18/2024 , Expires: 12/18/2024 Start: 09-18-2024 End: 09-18-2024 Patient encounter procedure 09/18/2024 11:20 AM EST Office Visit Family [facility] [address] [place] [address] PodlogarZeynep APRN.ROLL COATING MACHINE OPERATOR [address] [place] [address] 6 month follow up [facility] [place] Comment on above: 6 month follow up Start: 09-12-2024 Annual PCP Team Manager Training lino Disease Visit Annual PCP Team Chronic Disease Visit [facility] Start: 09-12-2024 RSV Vaccine (1 - 1-d ose 60+ series) RSV Vaccine (1 - 1-dose 60+ series) [facility] Comment on above: Postponed from 03/27 (Declined at this time) Start: 09-12-2024 RSV Vaccine (1 - Ris k 60-74 years 1-dose series) RSV Vaccine (1 - Risk 60-74 years 1-dose series) [facility] Comment on above: Postponed from 03/27 (Declined at this time) Start: 09-12-2024 Shingrix Vaccine (1 of 2) Shingrix Vaccine (1 of 2) [facility] Comment on above: Postponed from 03/27 (Declined at this time) Start: 09-12-2024 Urine microalbumin profile DTaP,Tdap,Td Vaccine (1 - Tdap) [facility] Comment on above: Postponed from 03/27 (Declined at this time) Start: 09-06-2024 Creatinine measurement Serum Creatin ine [facility] Start: 09-06-2024 Hemoglobin A1c measurement HbA1C [facility] Start: 09-06-2024 Hepatitis B surface antibody level LDL Cholesterol [facility] Start: 08-14-2024 Advance Directive Discussion Advance Directive Discussion [facility] Start: 08-14-2024 Medicare Advantage Annual Wellness Visit Medicare [facility] Annual Wellness Visit [facility] Start: 06-24-2024 Screening for malign ant neoplasm of colon [facility] Start: 06-12-2024 Annual PCP Team Manager Training lino Disease Visit Annual PCP Team Chronic Disease Visit [facility] Start: 06-12-2024 BP Controlled (<130/80) BP Controlle d (<130/80) [facility] Start: 06-05-2024 BP Controlled (<130/80) BP Controlle d (<130/80) [facility] Start: 05-21-2024 End: 05-21-2024 Patient encounter procedure 05/21/2024 10:30 AM EDT Office Visit Vascular Surgery [address] [place] [id number] Flex Carrillo DO [address] [place] [address] Abdominal aortic aneurysm (AAA) without rupture, unspecified part (HCC) [I71.40] Vascular Surgery Comment on above: Abdominal aortic ane urysm (AAA) without rupture, unspecified part (HCC) [I71.40] Start: 05-15-2024 End: 05-15-2024 Patient encounter procedure 05/15/2024 12:00 PM EDT Office Visit Neurology [address] [place] [address] [place] [phone] Dean Dubois MD [address] [facility] [facility] [address] [place], [place] [id number] 12 month follow up Neurology Comment on above: 12 month follow up Start: 05-14-2024 End: 08-13-2024 Comprehensive metabolic 2000 panel - Serum or Plasma COMPREHENSIVE METABOLIC PANEL Lab Routine CKD stage 3b, GFR 30-44 ml/min (HCC) Expected: 05/14/2024, Expires: 08/13/2024 [facility] Comment on above: Expected: 05/14/2024 , Expires: 08/13/2024 Start: 05-14-2024 End: 08-13-2024 CYSTATIN C CYSTATIN C Lab Routine CKD stage 3b, GFR 30-44 ml/min (HCC) Expected: 05/14/2024, Expires: 08/13/2024 [facility] Comment on above: Expected: 05/14/2024 , Expires: 08/13/2024 Start: 05-14-2024 End: 08-13-2024 Microalbumin/Creatinine [Mass Ratio] in Urine [facility] Work Phone: Comment on above: Expected: 05/14/2024 , Expires: 08/13/2024 Start: 05-14-2024 End: 05-14-2024 Patient encounter procedure 05/14/2024 2:00 PM EDT Office Visit Kidney Medicine [facility] [address] [place] [address] Micheal [place] [address] [place] [address] CKD stage 3b, GFR 30-44 ml/min (HCC) [N18.32] Kidney Medicine [facility] Comment on above: CKD stage 3b, GFR 30 -44 ml/min (HCC) [N18.32] Start: 04-22-2024 End: 04-22-2024 Patient encounter procedure 04/22/2024 7:00 AM EDT Appointment Radiology [address] [place], [place] [id number] Abdominal aortic aneurysm (AAA) without rupture, unspecified part (HCC) [I71.40] Radiology Comment on above: Abdominal aortic ane urysm (AAA) without rupture, unspecified part (HCC) [I71.40] Start: 04-14-2024 Influenza vaccination Influenza Vacc ine (#1) [facility] Start: 04-08-2024 End: 04-08-2024 Patient encounter procedure 04/08/2024 9:20 AM EDT Appointment Cat Scan [address] [place], [place] [id number] Screening for lung cancer [Z12.2] Cat Scan Comment on above: Screening for lung c ancer [Z12.2] Start: 03-28-2024 ANNUAL PCP TEAM STATION MASTER LINO DISEASE VISIT ANNUAL PCP TEAM CHRONIC DISEASE VISIT [facility] Start: 03-23-2024 Glaucoma screening Dilated Retinal E xam [facility] Start: 03-18-2024 End: 06-17-2024 Comprehensive metabolic 2000 panel - Serum or Plasma [facility] Comment on above: Expected: 03/18/2024 , Expires: 06/17/2024 Start: 03-18-2024 End: 06-17-2024 Thyrotropin [Units/volume] in Serum or Plasma [facility] Comment on above: Expected: 03/18/2024 , Expires: 06/17/2024 Start: 03-18-2024 End: 06-17-2024 Urinalysis complete panel - Urine [facility] Work Phone: Comment on above: Expected: 03/18/2024 , Expires: 06/17/2024 Start: 03-18-2024 End: 03-18-2024 Patient encounter procedure 03/18/2024 10:40 AM EDT Office Visit Family [facility] [address] [place], [place] [id number] Sherri Davalos MD [address] [place], [place] [id number] 3 month follow up Family [facility] Comment on above: 3 month follow up Start: 03-12-2024 End: 06-11-2024 CBC W Auto Differential panel - Blood COMPLETE BLOOD COUNT AND DIFFERENTIAL Lab Routine Type 2 diabetes mellitus with stage 3a chronic kidney disease, without long-term current use of insulin (HCC) Expected: 03/12/2024, Expires: 06/11/2024 [facility] Work Phone: Comment on above: Expected: 03/12/2024 , Expires: 06/11/2024 Start: 03-12-2024 End: 06-11-2024 Comprehensive metabolic 2000 panel - Serum or Plasma COMPREHENSIVE METABOLIC PANEL Lab Routine Type 2 diabetes mellitus with stage 3a chronic kidney disease, without long-term current use of insulin (HCC) Expected: 03/12/2024, Expires: 06/11/2024 [facility] Comment on above: Expected: 03/12/2024 , Expires: 06/11/2024 Start: 03-12-2024 End: 06-11-2024 Hemoglobin A1c in Blood HEMOGLOBIN A1C Lab Routine Type 2 diabetes mellitus with stage 3a chronic kidney disease, without long-term current use of insulin (HCC) Expected: 03/12/2024, Expires: 06/11/2024 [facility] Comment on above: Expected: 03/12/2024 , Expires: 06/11/2024 Start: 03-12-2024 End: 06-11-2024 Microalbumin/Creatinine [Mass Ratio] in Urine ALBUMIN/CREATININE RATIO, URINE Lab Routine Type 2 diabetes mellitus with stage 3a chronic kidney disease, without long-term current use of insulin (HCC) Expected: 03/12/2024, Expires: 06/11/2024 [facility] Comment on above: Expected: 03/12/2024 , Expires: 06/11/2024 Start: 03-12-2024 End: 03-12-2024 Patient encounter procedure 03/12/2024 10:00 AM EDT Office Visit [facility] [place] [address] [place] [id number] Sherri Davalos MD [address] [place] [id number] 3 month DM follow up [facility] [place] Comment on above: 3 month DM follow up Start: 03-11-2024 End: 03-11-2024 Patient encounter procedure 03/11/2024 8:30 AM EDT Office Visit Pulmonary Medicine [address] [place] [address] Elayne Mondragon APRN.ROLL COATING MACHINE OPERATOR [address] [place] [address] Don't know Pulmonary Medicine Comment on above: Don't know Start: 03-09-2024 ANNUAL PCP TEAM STATION MASTER LINO DISEASE VISIT ANNUAL PCP TEAM CHRONIC DISEASE VISIT [facility] Start: 03-09-2024 BP CONTROLLED (<130/80) BP CONTROLLE D (<130/80) [facility] Start: 03-06-2024 Hemoglobin A1c measurement HbA1C [facility] Start: 01-27-2024 3 comp foot exam completed DIABETIC FOOT EXAM [facility] Start: 01-27-2024 ANNUAL PCP TEAM STATION MASTER LINO DISEASE VISIT ANNUAL PCP TEAM CHRONIC DISEASE VISIT [facility] Start: 01-27-2024 BP CONTROLLED (<130/80) BP CONTROLLE D (<130/80) [facility] Start: 01-27-2024 Creatinine measurement Serum Creatin ine [facility] Start: 01-27-2024 Diabetic foot examination Diabetic Foot Exam [facility] Start: 01-27-2024 SERUM CREATININE SERUM CREATININE [facility] Start: 12-21-2023 End: 12-21-2023 ambulatory 12/21/2023 9:30 AM EDT OT/PT/Speech Visit [facility] [address] [place] [address] Fatuma Yang, PT M25.552 (ICD-10-CM) - Acute hip pain, left [facility] Comment on above: M25.552 (ICD-10-CM) - Acute hip pain, left Start: 12-19-2023 End: 12-19-2023 ambulatory 12/19/2023 10:15 AM EDT OT/PT/Speech Visit [facility] [address] [place] [address] Michelle Lynch, WAD IMPREGNATOR [address] [place] [address] M25.552 (ICD-10-CM) - Acute hip pain, left [facility] Comment on above: M25.552 (ICD-10-CM) - Acute hip pain, left Start: 12-15-2023 End: 12-15-2023 ambulatory 12/15/2023 10:15 AM EDT OT/PT/Speech Visit [facility] [address] [place] [address] Michelle Lynch, [facility] [address] [place] [address] M25.552 (ICD-10-CM) - Acute hip pain, left [facility] Comment on above: M25.552 (ICD-10-CM) - Acute hip pain, left Start: 12-13-2023 End: 12-13-2023 ambulatory 12/13/2023 10:30 AM EDT OT/PT/Speech Visit [facility] [address] [place] [address] Fatuma Yang, PT M25.552 (ICD-10-CM) - Acute hip pain, left [facility] Comment on above: M25.552 (ICD-10-CM) - Acute hip pain, left Start: 12-12-2023 End: 12-12-2023 Patient encounter procedure 12/12/2023 9:40 AM EDT Office Visit [facility] [place] [address] [place] [address] Sherri Davalos MD [address] [facility] [place] [address] annual physical [facility] [place] Comment on above: annual physical Start: 12-07-2023 End: 12-07-2023 ambulatory 12/07/2023 11:00 AM EDT OT/PT/Speech Visit [facility] [address] [place] [address] Fatuma Yang PT M25.552 (ICD-10-CM) - Acute hip pain, left [place] [facility] Comment on above: M25.552 (ICD-10-CM) - Acute hip pain, left Start: 09-28-2023 ANNUAL PCP TEAM STATION MASTER LINO DISEASE VISIT ANNUAL PCP TEAM CHRONIC DISEASE VISIT [facility] Start: 09-28-2023 BP CONTROLLED (<130/80) BP CONTROLLE D (<130/80) [facility] Start: 09-12-2023 End: 12-12-2023 Comprehensive metabolic 2000 panel - Serum or Plasma COMP METABOLIC PANEL Lab Routine Essential hypertension Expected: 09/12/2023, Expires: 12/12/2023 [facility] Work Phone: Comment on above: Expected: 09/12/2023 , Expires: 12/12/2023 Start: 09-12-2023 End: 12-12-2023 Hemoglobin A1c in Blood HGB A1C Lab Routine Type 2 diabetes mellitus with stage 3a chronic kidney disease, without long-term current use of insulin (HCC) Expected: 09/12/2023, Expires: 12/12/2023 [facility] Work Phone: Comment on above: Expected: 09/12/2023 , Expires: 12/12/2023 Start: 09-12-2023 End: 12-12-2023 Lipid 1996 panel - Serum or Plasma LIPID PANEL BASIC Lab Routine Coronary artery disease involving [place] coronary artery of [place] heart without angina pectoris Expected: 09/12/2023, Expires: 12/12/2023 [facility] Work Phone: Comment on above: Expected: 09/12/2023 , Expires: 12/12/2023 Start: 08-14-2023 Advance Directive Discussion Advance Directive Discussion [facility] Start: 07-28-2023 Hemoglobin A1c measurement HbA1C [facility] Start: 07-28-2023 Hemoglobin A1c/Hemoglobin.total in Blood HBA1C [facility] Start: 07-27-2023 ANNUAL PCP TEAM STATION MASTER LINO DISEASE VISIT ANNUAL PCP TEAM CHRONIC DISEASE VISIT [facility] Start: 07-27-2023 COLORECTAL CANCER SCREENING COLORECTAL CANCER SCREENING [facility] Comment on above: Postponed from 03/27 (Declined at this time) Start: 07-27-2023 Influenza vaccination LUNG CANCER [facility] Comment on above: Postponed from 03/27 (Declined at this time) Start: 07-27-2023 Screening for malign ant neoplasm of colon Colorectal Cancer Screening [facility] Comment on above: Postponed from 03/27 (Declined at this time) Start: 07-27-2023 Screening for malign ant neoplasm of lung Lung Cancer Screening [facility] Comment on above: Postponed from 03/27 (Declined at this time) Start: 07-27-2023 SHINGRIX VACCINE (1 of 2) SHINGRIX VACCINE (1 of 2) [facility] Comment on above: Postponed from 03/27 (Declined at this time) Start: 07-27-2023 Urine microalbumin profile [facility] Comment on above: Postponed from 03/27 (Declined at this time) Start: 07-25-2023 Hepatitis B screening URINE ALBUMIN:CREATININE RATIO [facility] Start: 07-20-2023 Complete blood count Hemoglobin/Gennaro tocrit [facility] Start: 07-20-2023 HEMOGLOBIN/HEMATOCRIT HEMOGLOBIN/HEM ATOCRIT [facility] Start: 07-20-2023 Hepatitis B surface antibody level LDL CHOLESTEROL [facility] Start: 07-20-2023 SERUM CREATININE SERUM CREATININE [facility] Start: 04-14-2023 Covid-19 Vaccine () Covid-19 Vaccine () [facility] Start: 04-14-2023 Influenza vaccination C [facility] Start: 03-29-2023 ANNUAL PCP TEAM STATION MASTER LINO DISEASE VISIT ANNUAL PCP TEAM CHRONIC DISEASE VISIT [facility] Start: 03-22-2023 [facility] Start: 03-09-2023 End: 05-09-2023 Hepatic function 2000 panel - Serum or Plasma HEPATIC FUNCTION PNL Lab Routine Onychomycosis Expected: 03/09/2023, Expires: 05/09/2023 [facility] Work Phone: Comment on above: Expected: 03/09/2023 , Expires: 05/09/2023 Start: 12-24-2022 BP CONTROLLED (<130/80) BP CONTROLLE D (<130/80) [facility] Start: 11-25-2022 COVID-19 VACCINE (4 - Additional dose for Mary series) COVID-19 VACCINE (4 - Additional dose for Mary series) [facility] Start: 11-18-2022 Hemoglobin A1c/Hemoglobin.total in Blood HBA1C [facility] Start: 10-19-2022 ANNUAL PCP TEAM STATION MASTER LINO DISEASE VISIT ANNUAL PCP TEAM CHRONIC DISEASE VISIT [facility] Start: 09-14-2022 SERUM CREATININE SERUM CREATININE [facility] Start: 08-14-2022 ADVANCE DIRECTIVE DISCUSSION ADVANCE DIRECTIVE DISCUSSION [facility] Start: 07-12-2022 End: 09-11-2022 ALBUMIN/CREAT RATIO RND UR ALBUMIN/CREAT RATIO RND UR Lab Routine Stage 3a chronic kidney disease (HCC) Diabetes type II (HCC) Expected: 07/12/2022, Expires: 09/11/2022 [facility] Work Phone: Comment on above: Expected: 07/12/2022 , Expires: 09/11/2022 Start: 07-12-2022 End: 09-11-2022 CBC panel - Blood by Automated count CBC Lab Routine Stage 3a chronic kidney disease (HCC) Diabetes type II (HCC) Expected: 07/12/2022, Expires: 09/11/2022 [facility] Work Phone: Comment on above: Expected: 07/12/2022 , Expires: 09/11/2022 Start: 07-12-2022 End: 09-11-2022 LIPID PANEL, NONFASTING LIPID PANEL, NONFASTING Lab Routine Stage 3a chronic kidney disease (HCC) Diabetes type II (HCC) Expected: 07/12/2022, Expires: 09/11/2022 [facility] Work Phone: Comment on above: Expected: 07/12/2022 , Expires: 09/11/2022 Start: 07-11-2022 End: 09-10-2022 Comprehensive metabolic 2000 panel - Serum or Plasma COMP METABOLIC PANEL Lab Routine Stage 3a chronic kidney disease (HCC) Expected: 07/11/2022, Expires: 09/10/2022 [facility] Work Phone: Comment on above: Expected: 07/11/2022 , Expires: 09/10/2022 Start: 04-14-2022 Influenza vaccination INFLUENZA (#1) [facility] Start: 03-29-2022 End: 05-29-2022 Hemoglobin A1c in Blood HGB A1C Lab Routine Type 2 diabetes mellitus with chronic kidney disease, without long-term current use of insulin (HCC) Expected: 03/29/2022, Expires: 05/29/2022 [facility] Work Phone: Comment on above: Expected: 03/29/2022 , Expires: 05/29/2022 Start: 03-29-2022 End: 05-29-2022 SCHEDULE LAB TESTING SCHEDULE LAB TESTING Lab Routine Expected: 03/29/2022, Expires: 05/29/2022 [facility] Work Phone: Comment on above: Expected: 03/29/2022 , Expires: 05/29/2022 Start: 03-17-2022 3 comp foot exam completed DIABETIC FOOT EXAM [facility] Start: 03-17-2022 HEMOGLOBIN/HEMATOCRIT HEMOGLOBIN/HEM ATOCRIT [facility] Start: 03-14-2022 Hemoglobin A1c/Hemoglobin.total in Blood HBA1C [facility] Start: 03-12-2022 Hepatitis B screening URINE ALBUMIN:CREATININE RATIO [facility] Start: 01-12-2022 Glaucoma screening Dilated Retinal E xam [facility] Start: 01-12-2022 Hepatitis C antibody , confirmatory test DILATED RETINAL EXAM [facility] Start: 12-03-2021 Hepatitis B surface antibody level LDL CHOLESTEROL [facility] Start: 11-27-2021 COVID-19 VACCINE (3 - Booster for Mary series) COVID-19 VACCINE (3 - Booster for Mary series) [facility] Start: 09-23-2021 COVID-19 VACCINE (3 - Booster for Mary series) COVID-19 VACCINE (3 - Booster for Mary series) [facility] Start: 08-14-2021 ADVANCE DIRECTIVE DISCUSSION ADVANCE DIRECTIVE DISCUSSION [facility] Start: 08-13-2021 Mammography [facility] Start: 08-13-2021 Screening for malign ant neoplasm of breast Mammogram Screening [facility] Start: 02-16-2020 COLORECTAL CANCER SCREENING COLORECTAL CANCER SCREENING [facility] Start: 02-16-2020 FECAL OCCULT BLOOD FECAL OCCULT BLOO D [facility] Start: 02-16-2020 Screening for malign ant neoplasm of colon [facility] Start: 11-29-2017 End: 11-29-2017 Appointment Appointment [facility] Work Phone: Start: 03-31-2017 End: 03-31-2017 Appointment Appointment [facility] Work Phone: Start: 03-31-2017 End: 03-31-2017 Follow Up Appt 6 months Follow Up Appt 6 months [facility] Work Phone: Start: 03-31-2017 End: 03-31-2017 PFM PFM [facility] Work Phone: Start: 06-27-2016 End: 06-27-2016 Follow Up Appt 6 months Follow Up Appt 6 months [facility] Work Phone: Start: 06-27-2016 End: 06-27-2016 PFM PFM [facility] Work Phone: Start: 04-18-2016 End: 01-21-2016 *Hepatic Function Panel *Hepatic Function Panel [facility] Work Phone: Start: 04-18-2016 End: 01-21-2016 Lipid panel [AGGREGATE] *Lipid Profile CC PCP [facility] Work Phone: Start: 12-28-2015 End: 01-21-2016 *Hepatic Function Panel *Hepatic Function Panel [facility] Work Phone: Start: 12-28-2015 End: 12-29-2015 Follow Up Appt 6 months Follow Up Appt 6 months [facility] Work Phone: Start: 12-28-2015 End: 01-21-2016 Lipid panel [AGGREGATE] *Lipid Profile CC PCP [facility] Work Phone: Start: 12-28-2015 End: 12-29-2015 MMM MMM [facility] Work Phone: Start: 06-10-2015 End: 06-11-2015 Follow Up Appt 6 months Follow Up Appt 6 months [facility] Work Phone: Start: 06-10-2015 End: 06-11-2015 Follow Up Appt Other Follow Up Appt Other [facility] Work Phone: Start: 06-10-2015 End: 06-11-2015 PFM PFM [facility] Work Phone: Start: 03-12-2015 End: 06-03-2015 Follow Up Appt 3 months Follow Up Appt 3 months [facility] Work Phone: Start: 03-12-2015 End: 06-03-2015 MMM MMM [facility] Work Phone: Start: 2012 Hepatitis B Vaccine (1 of 3 - Risk 3-dose series) Hepatitis B Vaccine (1 of 3 - Risk 3-dose series) [facility] Start: 2012 RSV Vaccine (1 - 1-d ose 60+ series) RSV Vaccine (1 - 1-dose 60+ series) [facility] Start: 2012 RSV Vaccine (1 - Ris k 60-74 years 1-dose series) RSV Vaccine (1 - Risk 60-74 years 1-dose series) [facility] Start: 2002 Influenza vaccination LUNG CANCER SC REENING [facility] Start: 2002 Screening for malign ant neoplasm of lung Lung Cancer Screening [facility] Start: 2002 SHINGRIX VACCINE (1 of 2) SHINGRIX VACCINE (1 of 2) [facility] Start: 1997 COLOGUARD (FIT-DNA) COLOGUARD (FIT-D NA) [facility] Start: 1997 Colonoscopy COLONOSCOPY [facility] Start: [address] COLONOGRAPHY [facility] Start: 1997 Screening for malign ant neoplasm of colon [facility] Start: 1997 SIGMOIDOSCOPY SIGMOIDOSCOPY [facility] Start: 1982 Zoledronic acid therapy ALPHA- 1 ANTITRYPSIN DEFICIENCY SCREENING [facility] Start: 1971 Urine microalbumin profile [facility] Start: 1970 Anxiety Screening Anxiety Screening [facility] Start: 1970 BP CONTROLLED (<130/80) BP CONTROLLE D (<130/80) [facility] End: 04-10-2025 CT Chest for screening WO contrast CT LUNG SCREEN WO IVCON Radiology Routine Screening for lung cancer Tobacco use disorder 1 Occurrences starting 03/11/2024 until 04/10/2025 [facility] Work Phone: Comment on above: 1 Occurrences starti ng 03/11/2024 until 04/10/2025 End: 08-16-2025 DBT Breast - bilateral screening AISHA SCREENING W JASE Radiology Routine Encounter for screening mammogram for breast cancer 1 Occurrences starting 07/17/2024 until 08/16/2025 [facility] Work Phone: Comment on above: 1 Occurrences starti ng 07/17/2024 until 08/16/2025 End: 09-23-2023 AISHA SCREENING AISHA SCREENING Radiology Routine Encounter for screening mammogram for breast cancer 1 Occurrences starting 08/24/2022 until 09/23/2023 [facility] Work Phone: Comment on above: 1 Occurrences starti ng 08/24/2022 until 09/23/2023 End: 08-31-2024 AISHA SCREENING AISHA SCREENING Radiology Routine Encounter for screening mammogram for breast cancer 1 Occurrences starting 08/02/2023 until 08/31/2024 [facility] Work Phone: Comment on above: 1 Occurrences starti ng 08/02/2023 until 08/31/2024 Patient Education [facility] Work Phone: Patient referral [facility] Work Phone: [facility] Immunizations Immunization Date Immunization Notes Care Provider Reece chacko 12-13-2024 COVID-19 vaccine, ag e 12+ yr (PFIZER-BIONTTapCrowd [facility]) Sherri Davalos MD Work Phone: [facility] 12-13-2024 tetanus toxoid, redu jerel diphtheria toxoid, and acellular pertussis vaccine, adsorbed Sherri Davalos MD Work Phone: [facility] 04-23-2024 influenza virus vaccine, unspecified formulation Sherri Davalos MD Work Phone: [facility] 12-12-2023 COVID-19 vaccine, ag e 12+ yr, season (PFIZER-BIONTECH) Sherri Davalos MD Work Phone: [facility] 06-12-2023 COVID-19 vaccine, ag e 12+ yr, season (PFIZER-BIONTECH) Zeynep Podlogar CONTRACTOR FIELD HAULING.ROLL COATING MACHINE OPERATOR Work Phone: [facility] 06-12-2023 influenza (HD-IIV4) vaccine, age 65+ yr, high dose, quadrivalent, PF (FLUZONE HIGH-DOSE) Zeynep Podlogar CONTRACTOR FIELD HAULING.ROLL COATING MACHINE OPERATOR Work Phone: [facility] 06-12-2023 influenza virus vaccine, unspecified formulation Brooke Rao RN [facility] 07-27-2022 COVID-19 booster vaccine, age 12+ yr, bivalent (PFIZER-BIONTECH) Sherri Davalos MD Work Phone: [facility] 05-02-2022 influenza (aIIV4) vaccine, age 65+ yr, quadrivalent, PF (FLUAD QUADRIVALENT) Sherri Davalos MD Work Phone: [facility] Work Phone: 05-02-2022 influenza, high dose seasonal, preservative-free Sherri Davalos MD Work Phone: [facility] 05-02-2022 influenza virus vaccine, unspecified formulation Dean Dubois MD Work Phone: [facility] 07-29-2021 COVID-19 vaccine, ag e 12+ yr (PFIZER-BIONTECH - PURPLE TOP) Dean Dubois MD Work Phone: [facility] 06-01-2021 influenza (aIIV4) vaccine, age 65+ yr, quadrivalent, PF (FLUAD QUADRIVALENT) Sherri Davalos MD Work Phone: [facility] Work Phone: 06-01-2021 influenza, high-dose , quadrivalent vaccine (FLUZONE HIGH DOSE QUADRIVALENT) Dean Dubois MD Work Phone: [facility] 10-22-2020 COVID-19 vaccine (MARY) Dean Dubois MD Work Phone: [facility] 05-06-2020 influenza, high dose seasonal, preservative-free Dean Dubois MD Work Phone: [facility] 05-06-2020 Influenza, injectabl e, Madin [place] Canine Kidney, quadrivalent with preservative Sherri Davalos MD Work Phone: [facility] Work Phone: 05-17-2019 influenza, high dose seasonal, preservative-free Sherri Davalos MD Work Phone: [facility] Work Phone: 02-08-2019 pneumococcal polysaccharide vaccine, 23 valent Dean Dubois MD Work Phone: [facility] Work Phone: 04-20-2017 pneumococcal conjuga te vaccine, 13 valent Dean Dubois MD Work Phone: [facility] Payers Date Payer Category Payer Self-pay [id number] 2019 Medicare (Managed Care) [employer] O [id number] 2019 Unknown ANTHLEILANI VENEGAS CR[employer] S [employer] BL[employer] SHIELD ANTHLEILANI DONALDSON O [id number] 2019-Present [phone] [address] [place] [address] O [id number] 2019 Unknown [id number] 2019 Medicare [id number] 2013 Unknown [id number] Medicaid [id number] Medicare [id number] Unknown [id number] Unknown [id number] Social History Date Type Detail Facility Start: 11-24-2021 End: 03-22-2023 Tobacco smoking status [facility] Unknown if ever smoked [facility] Start: 01-17-2015 None [facility] Start: 01-17-2015 Cigarettes [facility] Start: 1950 Sex Assigned At Female [facility] Start: 08-14-1969 End: 04-19-2024 Tobacco smoking status [facility] Smokes tobacco daily [facility] Work Phone: Start: 08-14-1969 History of tobacco use Cigarette Smoker [facility] Work Phone: Start: 09-05-2012 End: 01-26-2023 Cigarettes smoked current (pack per day) - Reported 0.5 [facility] Start: 09-05-2012 End: 04-19-2024 Tobacco use and exposure Smokeless tobacco non-user [facility] Work Phone: Start: 12-24-2021 End: 03-18-2025 Alcohol intake Current non-drinker of alcohol (finding) [facility] Start: 10-05-2021 End: 07-27-2022 History SDOH Alcohol Frequency 2 [facility] Start: 10-05-2021 End: 07-27-2022 History SDOH Alcohol Std Drinks 98 [facility] Start: 10-05-2021 End: 07-27-2022 History SDOH Alcohol Binge 1 [facility] Start: 12-28-2016 History SDOH Alcohol Comment Rarely [facility] Start: 10-05-2021 End: 07-27-2022 History SDOH Social Connections Phone 5 [facility] Start: 10-05-2021 End: 07-27-2022 History SDOH Social Connections [facility] 3 [facility] Start: 08-10-2020 Education 21 [facility] Start: 12-14-2021 End: 03-28-2022 Exposure to SARS-CoV-2 (event) Not sure [facility] Start: 07-27-2022 End: 01-26-2023 Social connection and isolation panel [facility] Start: 07-15-2012 How often do you get together with friends or relatives? Patient refused [facility] Do you belong to any clubs or organizations such as buddhism groups, unions, fraternal or athletic groups, or school groups? Yes [facility] Are you now , , , , never or living with a partner? [facility] How often to you hav e a drink containing alcohol? Monthly or less [facility] How many standard dr inks containing alcohol do you have on a typical day? 1 or 2 [facility] How often do you hav e 6 or more drinks on 1 occasion? Never [facility] How hard is it for y ou to pay for the very basics like food, housing, medical care, and heating Somewhat hard [facility] Do you feel stress - tense, restless, nervous, or anxious, or unable to sleep at night because your mind is troubled all the time - these days [OSQ] To some extent [facility] (I/We) worried whemandy er (my/our) food would run out before (I/we) got money to buy more. Sometimes true [facility] The food that (I/we) bought just didn't last, and (I/we) didn't have money to get more. Never true [facility] In the past 12 month s, was there a time when you were not able to pay the mortgage or rent on time? No [facility] Start: 06-21-2020 Gender identity Identifies as female gender (finding) [facility] Start: 06-21-2020 Sexual orientation Heterosexual (finding) [facility] Do you feel stress - tense, restless, nervous, or anxious, or unable to sleep at night because your mind is troubled all the time - these days [OSQ] Only a little [facility] Medical Equipment Procedure Code Equipment Code Equipment Origin al Text Equipment Identifier Dates Test blood sugar (s) 1 times daily. Dx: Type 2 DM - Uncontrolled E11.65 Insulin: No [id number], [id number], [id number], [id number] Start: 03-23-2021 End: 07-29-2024 Comment on above: Test blood sugar(s) 1 times daily. Dx: Type 2 DM - Uncontrolled E11.65 Insulin: No Goals Date Patient Goal Desired Activity /State Personal health goal Comment on above: Formatting of this n ote might be different from the original. Patient has the following general goals: Two PCP visits annually Patient Stated goal: Stay active and independent 01-24-23 Lives alone and is independent Patient will meet these goals by 08-13-23 (describe interventions done by PCC) Formatting of this n ote might be different from the original. Patient has the following Chronic Kidney Disease goals: Two PCP visits annually Education provided and reviewed with patient - sent on 01/24/23 CKD Zones Patient will meet these goals by: 08-13-23 (describe interventions done by PCC) Formatting of this n ote might be different from the original. Patient has the following general goals: Two PCP visits annually Patient Stated goal: Stay active and independent 01-24-23 Lives alone and is independent 02-22-23 Son is helpful. She was moving gravel recently. Agrees to Wellness E Coaching Patient will meet these goals by 08-13-23 (describe interventions done by PCC) Formatting of this n ote might be different from the original. Patient has the following Chronic Kidney Disease goals: Two PCP visits annually Education provided and reviewed with patient - sent on 01/24/23 CKD Zones 02-22-23 CKD ALLEN sent. 02-22-23 Sent Checking BP Reviewed not using NSAID with kidney disease, states she is aware, she will discuss this with her PCP Has been taking ibuprofen due to eye injury Patient will meet these goals by: 08-13-23 (describe interventions done by PCC) Formatting of this n ote might be different from the original. Patient has the following general goals: Two PCP visits annually Patient Stated goal: Stay active and independent 01-24-23 Lives alone and is independent 02-22-23 Son is helpful. She was moving gravel recently. Agrees to Wellness E Coaching 03-23-23 Keeps busy with Grandchildren. Starting to make a quilt for there Granddaughter who is 1. Patient will meet these goals by 08-13-23 (describe interventions done by PCC) Formatting of this n ote might be different from the original. Patient has the following general goals: Two PCP visits annually Patient Stated goal: Stay active and independent 01-24-23 Lives alone and is independent 02-22-23 Son is helpful. She was moving gravel recently. Agrees to Wellness E Coaching 03-23-23 Keeps busy with Grandchildren. Starting to make a quilt for there Granddaughter who is 1. 04-19-23 Moved Pea gravel. Stays active Patient will meet these goals by ongoing (describe interventions done by PCC) Formatting of this n ote might be different from the original. Patient has the following Chronic Kidney Disease goals: Two PCP visits annually CKD education planned for patient - {CKD zones, renal diet basics, controlling potassium, and CKD ALLEN education: CKD (ALL) Education provided and reviewed with patient - sent on 01/24/23 CKD Zones 02-22-23 CKD ALLEN sent. 02-22-23 Sent Checking BP Reviewed not using NSAID with kidney disease, states she is aware, she will discuss this with her PCP Has been taking ibuprofen due to eye injury Patient will meet these goals by: 08-13-2024 (describe interventions done by PCC) Formatting of this n ote might be different from the original. Patient has the following general goals: Two PCP visits annually Patient Stated goal: Stay active and independent 01-24-23 Lives alone and is independent 02-22-23 Son is helpful. She was moving gravel recently. Agrees to Wellness E Coaching 03-23-23 Keeps busy with Grandchildren. Starting to make a quilt for there Granddaughter who is 1. 9 Moved Pea gravel. Stays active 09-04-2023 Making quilts for Granddaughters Patient will meet these goals by ongoing (describe interventions done by PCC) Formatting of this n ote might be different from the original. Patient has the following general goals: Two PCP visits annually Patient Stated goal: Stay active and independent 01-24-23 Lives alone and is independent 02-22-23 Son is helpful. She was moving gravel recently. Agrees to Wellness E Coaching 03-23-23 Keeps busy with Grandchildren. Starting to make a quilt for there Granddaughter who is 1. 9-- Moved Pea gravel. Stays active 09-04-2023 Making quilts for Granddaughters 10-05-23 Does not do as much in the winter. Does feel isolated. Continues to work on quilts Patient will meet these goals by ongoing (describe interventions done by PCC) Formatting of this n ote might be different from the original. Patient has the following Chronic Kidney Disease goals: Two PCP visits annually CKD education planned for patient - {CKD zones, renal diet basics, controlling potassium, and CKD ALLEN education: CKD (ALL) Education provided and reviewed with patient - sent on 01/24/23 CKD Zones 02-22-23 CKD ALLEN sent. 02-22-23 Sent Checking BP Reviewed not using NSAID with kidney disease, states she is aware, she will discuss this with her PCP Has been taking ibuprofen due to eye injury 10-05-23 Sent CKD Zones Patient will meet these goals by: 08-13-2024 (describe interventions done by PCC) Personal health goal Comment on above: Formatting of this n ote might be different from the original. Patient has the following Chronic Obstructive Pulmonary Disease goals: Two PCP visits annually Education provided and reviewed with patient - sent on 02/22/23 COPD Action Plan/Zones and COPD ALLEN Education - Chronic Obstructive Pulmonary Disease Patient will meet these goals by 02-23-24 (describe interventions done by PCC) Formatting of this n ote might be different from the original. Patient has the following High Blood Pressure/Hypertension Goals: Two PCP Visits annually, BMP annually, and Patients specific blood pressure target:130/80 HTN Education given and reviewed with patient --sent on 02/22/23 Checking your Blood Pressure at Home Patient will meet these goals by 02-22-23 (describe interventions done by PCC) Formatting of this n ote might be different from the original. Patient has the following Chronic Obstructive Pulmonary Disease goals: Two PCP visits annually Education provided and reviewed with patient - sent on 02/22/23 COPD Action Plan/Zones and COPD ALLEN Education - Chronic Obstructive Pulmonary Disease Patient will meet these goals by ongoing (describe interventions done by PCC) Formatting of this n ote might be different from the original. Patient has the following High Blood Pressure/Hypertension Goals: Two PCP Visits annually, BMP annually, and Patients specific blood pressure target:130/80 HTN Education given and reviewed with patient --sent on 02/22/23 Checking your Blood Pressure at Home 04-19-23 HTN and Nutrition discussed and sent via [employer] 04-19-23 Verbally discussed checking your BP at home. Does not think she opened in [employer] yet. States she will look at it. Patient will meet these goals by Ongoing (describe interventions done by PCC) Formatting of this n ote might be different from the original. Patient has the following Chronic Obstructive Pulmonary Disease goals: Two PCP visits annually COPD education planned for patient - {COPD Core Education Packet, COPD Action Plan/Zones, understanding COPD, how to use MDI, COPD ALLEN education: COPD about, and CODD ALLEN education: Chronic Obstructive Pulmonary Disease Education provided and reviewed with patient - sent on 02/22/23 COPD Action Plan/Zones and COPD ALLEN Education - Chronic Obstructive Pulmonary Disease Patient will meet these goals by 08-13-2024 (describe interventions done by PCC) Formatting of this n ote might be different from the original. Patient has the following High Blood Pressure/Hypertension Goals: Two PCP Visits annually, BMP annually, and Patients specific blood pressure target:130/80 HTN Education given and reviewed with patient --sent on 02/22/23 Checking your Blood Pressure at Home 04-19-23 HTN and Nutrition discussed and sent via [employer] 04-19-23 Verbally discussed checking your BP at home. Does not think she opened in [employer] yet. States she will look at it. Patient will meet these goals by (describe interventions done by PCC) Formatting of this n ote might be different from the original. Patient has the following Chronic Obstructive Pulmonary Disease goals: Two PCP visits annually COPD education planned for patient - {COPD Core Education Packet, COPD Action Plan/Zones, understanding COPD, how to use MDI, COPD ALLEN education: COPD about, and CODD ALLEN education: Chronic Obstructive Pulmonary Disease Education provided and reviewed with patient - sent on 02/22/23 COPD Action Plan/Zones and COPD ALLEN Education - Chronic Obstructive Pulmonary Disease 10-05-23 ALLEN COPD about sent Patient will meet these goals by 08-13-2024 (describe interventions done by PCC) Formatting of this n ote might be different from the original. Patient has the following High Blood Pressure/Hypertension Goals: Two PCP Visits annually, BMP annually, and Patients specific blood pressure target:130/80 HTN Education given and reviewed with patient --sent on 02/22/23 Checking your Blood Pressure at Home 04-19-23 HTN and Nutrition discussed and sent via [employer] 04-19-23 Verbally discussed checking your BP at home. Does not think she opened in [employer] yet. States she will look at it. Patient will meet these goals by 08-13-2024 (describe interventions done by PCC) Personal health goal Comment on above: Formatting of this n ote might be different from the original. This patient has the following Diabetes Health Maintenance goals: HBA1C drawn in last 10 months This patient has the following education goals: Diet Modification: Plate Method Patient will meet these goals by: 08/13/2024 (describe interventions done by PCC) Personal health goal Comment on above: Formatting of this n ote might be different from the original. This patient has the following High Blood Pressure/Hypertension Health Maintenance goals: Two PCP Visits annually This patient has the following education goals: Medication compliance education, Advise / educate patient to ask for repeat BP check at any appointment if first BP is >140/90, Checking your Blood Pressure at Home, High Blood Pressure: Talking to Your Health Care Provider, High Blood Pressure - When to Seek Emergency Care, High Blood Pressure and Nutrition, Your Sodium-Controlled Diet, and Hypertension Treatment Overview Patient will meet these goals by 08/13/2024 (describe interventions done by PCC) Instructed patient on High Blood Pressure - When to Seek Emergency Care Brooke Rao RN January 22, 2024 3:47 PM Formatting of this n ote might be different from the original. This patient has the following Chronic Obstructive Pulmonary Disease Health Maintenance goals: Two PCP visits annually This patient has the following education goals: COPD Core Education Packet, COPD Action Plan/Zones, Understanding COPD, How to use MDI, COPD ALLEN Education - COPD About, COPD ALLEN Education - Chronic Obstructive Pulmonary Disease, and COPD ALLEN Education - Smoking Cessation Patient will meet these goals by 08/13/2024 (describe interventions done by PCC) Instructed patient on COPD Action Plan/Zones Brooke Rao RN January 22, 2024 3:50 PM Formatting of this n ote might be different from the original. This patient has the following Chronic Kidney Disease Health Maintenance goals: Two PCP visits annually This patient has the following education goals: CKD Zones, Renal Diet Basics, Controlling Potassium, and CKD ALLEN Education - CKD (ALL) Patient will meet these goals by: 08/13/2024 (describe interventions done by PCC) Formatting of this n ote might be different from the original. This patient has the following High Blood Pressure/Hypertension Health Maintenance goals: Two PCP Visits annually This patient has the following education goals: Medication compliance education, Advise / educate patient to ask for repeat BP check at any appointment if first BP is >140/90, Checking your Blood Pressure at Home, High Blood Pressure: Talking to Your Health Care Provider, High Blood Pressure - When to Seek Emergency Care, High Blood Pressure and Nutrition, Your Sodium-Controlled Diet, and Hypertension Treatment Overview Patient will meet these goals by 08/13/2024 (describe interventions done by PCC) Instructed patient on High Blood Pressure - When to Seek Emergency Care Brooke Rao RN January 22, 2024 3:47 PM Instructed patient on checking and recording blood pressure at home Brooke Rao RN July 18, 2024 10:25 AM Personal health goal Comment on above: Formatting of this n ote might be different from the original. Remain active and independent Comment on above: Formatting of this n ote might be different from the original. Remain active and independent Comment on above: Formatting of this n ote might be different from the original. Patient has the following general goals: Two PCP visits annually Patient Stated goal: Stay active and independent 01-24-23 Lives alone and is independent Patient will meet these goals by 08-13-23 (describe interventions done by PCC) Comment on above: Formatting of this n ote might be different from the original. Patient has the following Chronic Kidney Disease goals: Two PCP visits annually Education provided and reviewed with patient - sent on 01/24/23 CKD Zones Patient will meet these goals by: 08-13-23 (describe interventions done by PCC) Mental Status Date Assessment Result Facility 03-22-2023 Cognitive function Level Of Cons ciousness Awake;Alert;Appropriate;Follow s Commands [facility] Work Phone: 02-14-2023 Cognitive function Level Of Cons ciousness Awake;Alert;Appropriate;Follow s Commands [facility] Work Phone: Clinical Notes 04-14-2014 to 04-01-2025 Telephone Encounter - Lul Dash LPN - 04/01/2025 4:37 PM EDTTelephone Encounter - Lul Dash LPN - 04/01/2025 4:37 PM EDTTelephone Encounter - ANGÉLICA ORDAZ - 03/12/2025 11:07 AM EDT Note Date & Type Note Facility 04-01-2025 Telephone encount er Note Prescription Refill Information The patient has been identified by name and date of : Yes Caregiver verified no other encounters exist for this prescription request: Yes Caregiver confirmed with patient/requestor that no other refills are due, in the near future, with this provider at this time: Yes The last office visit in the department: 03/18/25 Does the patient have a future office visit with this provider/department: Yes, 09/18/25 Requested Prescriptions Pending Prescriptions Disp Refills levothyroxine (SYNTHROID) 150 mcg tablet 90 tablet 1 Sig: Take 1 tablet by mouth once daily. Take on empty stomach. For thyroid Lul Dash LPN April 01, 2025 4:37 PM [facility] 04-01-2025 Miscellaneous Notes Formattin g of this note is different from the original. Prescription Refill Information The patient has been identified by name and date of : Yes Caregiver verified no other encounters exist for this prescription request: Yes Caregiver confirmed with patient/requestor that no other refills are due, in the near future, with this provider at this time: Yes The last office visit in the department: 03/18/25 Does the patient have a future office visit with this provider/department: Yes, 09/18/25 Requested Prescriptions Pending Prescriptions Disp Refills levothyroxine (SYNTHROID) 150 mcg tablet 90 tablet 1 Sig: Take 1 tablet by mouth once daily. Take on empty stomach. For thyroid Lul Dash LPN April 01, 2025 4:37 PM documented in this encounter [facility] 03-18-2025 Note HNO ID: [id number] Author: ZEYNEP SCHMIDT APRN.ROLL COATING MACHINE OPERATOR Service: ? Author Type: Nurse Practitioner Type: Progress Notes Filed: 03/18/2025 10:17 Note Text: 03/18/2025 Patient presents with: F/U 6 months Recording using [employer] software for draft documentation of the visit was discussed with the patient/authorized premium service representative; all questions welcomed and answered. Patient/authorized premium service representative agreed to proceed SUBJECTIVE: This is a 74 year old that is here today for Above Complaints. Diabetes: - Monitoring blood glucose levels daily, fasting readings range from 106-130 mg/dL. - Last eye exam was last year at [facility]; early cataracts noted. - Denies polydipsia, polyuria, paresthesia in extremities. Hypertension: - Monitoring blood pressure at home; readings consistent with today's measurement of 120s/70s. Abdominal Aortic Aneurysm: - Last seen by vascular surgery in May; next appointment scheduled for May. - Upcoming sonogram of legs and nerves planned. Tremor: - Managed with Primidone; no recent dosage changes. - Denies significant interference with daily activities; prefers not to increase dosage unless symptoms worsen. - Follow-up with neurology scheduled for May. Depression: - Managed with Zoloft 100 mg daily; reports effective symptom control. Back Pain: - Zoraida experiences occasional severe back cramping, recently used ibuprofen for relief. - Requests refill for Flexeril, used PRN for muscle spasms. Colorectal Cancer Screening: - Zoraida expresses interest in scheduling a colonoscopy Smoking: - Smokes 1 PPD; has not undergone lung cancer screening. Cardiology: - Last seen by Dr. Thompson at [facility] in September; follow-up scheduled for next year. - Denies chest pain or dyspnea. PAST MEDICAL HISTORY Diagnosis Date Asthma (HCC) See PFT 12/2020 Cataracts, bilateral CKD (chronic kidney disease), stage III (HCC) Coronary artery disease s/p PTCA with ALEXIS to RCA 04/27, 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 Thompson Non-rheumatic mitral regurgitation 10/03/2017 Onychomycosis Shingles Statin intolerance Tobacco use disorder ALLERGIES Metformin, Poison Rahel Extract, and Kyhccak-Kbe-Ycc Reductase Inhibitors MEDICATIONS Current Outpatient Medications Medication Sig cyclobenzaprine (FLEXERIL) 5 mg tablet Take 1 tablet by mouth two times a day as needed for muscle spasm (Pain). lisinopril (ZESTRIL) 20 mg tablet Take 1 tablet by mouth two times a day. sertraline (ZOLOFT) 100 mg tablet Take 1 tablet by mouth once daily. amLODIPine (NORVASC) 10 mg tablet Take 1 tablet by mouth once daily. albuterol HFA (VENTOLIN HFA) 90 mcg/actuation inhaler Inhale 2 Puffs as instructed every 4 hours as needed. levothyroxine (SYNTHROID) 150 mcg tablet Take 1 tablet by mouth once daily. Take on empty stomach. For thyroid primidone (MYSOLINE) 50 mg tablet Take 2 tablets by mouth daily at bedtime. Lancets Test blood sugar(s) 1 times daily. Dx: Type 2 DM - Uncontrolled E11.65 Insulin: No blood sugar diagnostic (BLOOD GLUCOSE TEST) test strip Test blood sugar(s) 1 times daily. Dx: Type 2 DM - Uncontrolled E11.65 Insulin: No propranolol (INDERAL) 20 mg tablet Take 20 mg by mouth two times a day. acetaminophen (TYLENOL) 500 mg tablet Take 1,000 mg by mouth every 8 hours as needed for pain. loratadine (CLARITIN) 10 mg tablet Take 10 mg by mouth once daily. As needed hydroCHLOROthiazide 25 mg tablet Take 1 tablet by mouth every afternoon. Blood-Glucose Meter monitoring kit Glucose Meter of Choice - Kit - Use once daily Dx: Type 2 DM - Uncontrolled E11.65 aspirin, enteric coated (ASPIRIN, ENTERIC COATED) 81 mg EC tablet Take 81 mg by mouth once daily. NITROGLYCERIN BUCCAL Place between cheek and gum. No current facility-administered medications for this visit. Medications and allergies reviewed by this provider. SOCIAL HISTORY Social History Tobacco Use Smoking status: Every Day Current packs/day: 1.00 Average packs/day: 1 pack/day for 55.9 years (55.9 ttl pk-yrs) Types: Cigarettes Start date: [birth year]/14/1969 Smokeless tobacco: Never Vaping Use Vaping status: Never Used Substance Use Topics Alcohol use: No Comment: Rarely Drug use: No REVIEW OF SYSTEMS OBJECTIVE: BP 126/74 Pulse 64 Resp 18 Wt 98 kg (216 lb) SpO2 96% BMI 39.15 kg/m? . Vital signs reviewed by this provider. GENERAL: NAD, alert and oriented. SKIN: Unremarkable, no rash or skin lesions to exposed skin EYES: conjunctiva clear. LUNGS: Clear to auscultation bilaterally, no wheezes/rhonchi/rales. HEART: Regular rate and rhythm, no murmurs. No ectopy. EXTREMITIES: Normal, no deformities, no skin discoloration, no edema. Intact sensation in feet. Feet: Shoes and (more content not included)... [facility] 03-12-2025 Telephone encount er Note Prescription was refilled on 03/10/25. Angélica Ordaz LPN [facility] 03-12-2025 Miscellaneous Notes Formattin g of this note might be different from the original. Prescription was refilled on 03/10/25. Angélica Ordaz LPN documented in this encounter [facility] 03-10-2025 Telephone encount er Note Prescription Refill Information The patient has been identified by name and date of : Yes Caregiver verified no other encounters exist for this prescription request: Yes Caregiver confirmed with patient/requestor that no other refills are due, in the near future, with this provider at this time: Yes The last office visit in the department: 09/18/24 Does the patient have a future office visit with this provider/department: Yes 03/18/25 Requested Prescriptions Pending Prescriptions Disp Refills lisinopril (ZESTRIL) 20 mg tablet 180 tablet 1 Sig: Take 1 tablet by mouth two times a day. Jennifer Bryant LPN March 10, 2025 3:25 PM [facility] 03-10-2025 Miscellaneous Notes Formattin g of this note is different from the original. Prescription Refill Information The patient has been identified by name and date of : Yes Caregiver verified no other encounters exist for this prescription request: Yes Caregiver confirmed with patient/requestor that no other refills are due, in the near future, with this provider at this time: Yes The last office visit in the department: 09/18/24 Does the patient have a future office visit with this provider/department: Yes 03/18/25 Requested Prescriptions Pending Prescriptions Disp Refills lisinopril (ZESTRIL) 20 mg tablet 180 tablet 1 Sig: Take 1 tablet by mouth two times a day. Jennifer Bryant LPN March 10, 2025 3:25 PM documented in this encounter [facility] 03-06-2025 Miscellaneous Notes Formattin g of this note is different from the original. Prescription Refill Information The patient has been identified by name and date of : Yes Caregiver verified no other encounters exist for this prescription request: Yes Caregiver confirmed with patient/requestor that no other refills are due, in the near future, with this provider at this time: Yes The last office visit in the department: 09/18/24 Does the patient have a future office visit with this provider/department: Yes 03/18/25 Requested Prescriptions Pending Prescriptions Disp Refills sertraline (ZOLOFT) 100 mg tablet 90 tablet 1 Sig: Take 1 tablet by mouth once daily. Jennifer Bryant LPN March 06, 2025 6:06 PM documented in this encounter [facility] 03-06-2025 Telephone encount er Note Prescription Refill Information The patient has been identified by name and date of : Yes Caregiver verified no other encounters exist for this prescription request: Yes Caregiver confirmed with patient/requestor that no other refills are due, in the near future, with this provider at this time: Yes The last office visit in the department: 09/18/24 Does the patient have a future office visit with this provider/department: Yes 03/18/25 Requested Prescriptions Pending Prescriptions Disp Refills sertraline (ZOLOFT) 100 mg tablet 90 tablet 1 Sig: Take 1 tablet by mouth once daily. Jennifer Bryant LPN March 06, 2025 6:06 PM T [facility] 02-25-2025 Telephone encount er Note Prescription Refill Information The patient has been identified by name and date of : Yes Caregiver verified no other encounters exist for this prescription request: Yes Caregiver confirmed with patient/requestor that no other refills are due, in the near future, with this provider at this time: Yes The last office visit in the department: 09/18/24 Does the patient have a future office visit with this provider/department: Yes, 03/18/25 Requested Prescriptions Pending Prescriptions Disp Refills amLODIPine (NORVASC) 10 mg tablet 90 tablet 1 Sig: Take 1 tablet by mouth once daily. Lul Dash LPN February 25, 2025 10:39 AM [facility] 02-25-2025 Miscellaneous Notes Formattin g of this note is different from the original. Prescription Refill Information The patient has been identified by name and date of : Yes Caregiver verified no other encounters exist for this prescription request: Yes Caregiver confirmed with patient/requestor that no other refills are due, in the near future, with this provider at this time: Yes The last office visit in the department: 09/18/24 Does the patient have a future office visit with this provider/department: Yes, 03/18/25 Requested Prescriptions Pending Prescriptions Disp Refills amLODIPine (NORVASC) 10 mg tablet 90 tablet 1 Sig: Take 1 tablet by mouth once daily. Lul Dash LPN February 25, 2025 10:39 AM documented in this encounter [facility] 10-09-2024 Telephone encount er Note Prescription Refill Information The patient has been identified by name and date of : Yes Caregiver verified no other encounters exist for this prescription request: Yes Caregiver confirmed with patient/requestor that no other refills are due, in the near future, with this provider at this time: Yes The last office visit in the department: 09/18/24 Does the patient have a future office visit with this provider/department: Yes Requested Prescriptions Pending Prescriptions Disp Refills albuterol HFA (VENTOLIN HFA) 90 mcg/actuation inhaler 1 Each 2 Sig: Inhale 2 Puffs as instructed every 4 hours as needed. Eden Guy LPN October 09, 2024 7:27 AM [facility] 10-09-2024 Miscellaneous Notes Formattin g of this note is different from the original. Prescription Refill Information The patient has been identified by name and date of : Yes Caregiver verified no other encounters exist for this prescription request: Yes Caregiver confirmed with patient/requestor that no other refills are due, in the near future, with this provider at this time: Yes The last office visit in the department: 09/18/24 Does the patient have a future office visit with this provider/department: Yes Requested Prescriptions Pending Prescriptions Disp Refills albuterol HFA (VENTOLIN HFA) 90 mcg/actuation inhaler 1 Each 2 Sig: Inhale 2 Puffs as instructed every 4 hours as needed. Eden Guy LPN October 09, 2024 7:27 AM documented in this encounter [facility] 10-07-2024 Telephone encount er Note Prescription Refill Information The patient has been identified by name and date of : Yes Caregiver verified no other encounters exist for this prescription request: Yes Caregiver confirmed with patient/requestor that no other refills are due, in the near future, with this provider at this time: Yes The last office visit in the department: 09/2024 Does the patient have a future office visit with this provider/department: Yes Requested Prescriptions Pending Prescriptions Disp Refills levothyroxine (SYNTHROID) 150 mcg tablet 90 tablet 1 Sig: Take 1 tablet by mouth once daily. Take on empty stomach. For thyroid Chelsea Franco MA October 07, 2024 9:24 AM [facility] 10-07-2024 Miscellaneous Notes Formattin g of this note is different from the original. Prescription Refill Information The patient has been identified by name and date of : Yes Caregiver verified no other encounters exist for this prescription request: Yes Caregiver confirmed with patient/requestor that no other refills are due, in the near future, with this provider at this time: Yes The last office visit in the department: 09/2024 Does the patient have a future office visit with this provider/department: Yes Requested Prescriptions Pending Prescriptions Disp Refills levothyroxine (SYNTHROID) 150 mcg tablet 90 tablet 1 Sig: Take 1 tablet by mouth once daily. Take on empty stomach. For thyroid Chelsea Franco MA October 07, 2024 9:24 AM documented in this encounter [facility] 09-23-2024 Progress note Formatting of t his note might be different from the original. Patient telephoned and notified of results and recommendations. Voices understanding. [facility] 09-23-2024 Miscellaneous Notes Formattin g of this note might be different from the original. Patient telephoned and notified of results and recommendations. Voices understanding. Total cholesterol and bad cholesterol (LDL) remain elevated. Continue low saturated fat diet and aim for at least 150 minutes of exercise per week. A1c remains 6.6%- continue low carbohydrate diet and exercise as mentioned. Kidney function is stable continue to eat low salt diet, stay well hydrated with water and avoid NSAID products. Zeynep Schmidt APRN.CNP documented in this encounter [facility] 09-23-2024 Telephone encount er Note Total cholesterol and bad cholesterol (LDL) remain elevated. Continue low saturated fat diet and aim for at least 150 minutes of exercise per week. A1c remains 6.6%- continue low carbohydrate diet and exercise as mentioned. Kidney function is stable continue to eat low salt diet, stay well hydrated with water and avoid NSAID products. Zeynep Schmidt APRN.CNP [facility] 09-18-2024 Instructions Zeynep Schmidt APRN.CNP - 09/18/2024 11:52 AM EST WHAT YOU CAN DO TO PREVENT FALLS Many falls can be prevented. By making some changes, you can lower your chances of falling. Four things YOU can do to prevent falls for you* and your caregiver 1. Begin a regular exercise program Exercise is one of the most important ways to lower your chances of falling. It makes you stronger and helps you feel better. Exercises that improve balance and coordination (like [place]) are the most helpful. Lack of exercise leads to weakness and increases your chances of falling. Ask your doctor or health care provider about the best type of exercise program for you. 2. Have your health care provider review your medicines Have your doctor or pharmacist review all the medicines you take, even gawo-xkd-[id number] medicines. As you get older, the way medicines work in your body can change. Some medicines, or combinations of medicines, can make you sleepy or dizzy and can cause you to fall. 3. Have your vision checked Have your eyes checked by an eye doctor at least once a year. You may be wearing the wrong glasses or have a condition like glaucoma or cataracts that limits your vision. Poor vision can increase your chances of falling. 4. Make your home safer About half of all falls happen at home. To make your home safer: Remove things you can trip over (like papers, books, clothes, and shoes) from stairs and places where you walk. Remove small throw rugs or use double-sided tape to keep the rugs from slipping. Keep items you use often in cabinets you can reach easily without using a step stool. Have grab bars put in next to your toilet and in the tub or shower. Use non-slip mats in the bathtub and on shower floors. Improve the lighting in your home. As you get older, you need brighter lights to see well. Hang light-weight curtains or shades to reduce glare. Have handrails and lights put in on all staircases. Wear shoes both inside and outside the house. Avoid going barefoot or wearing slippers. For more information, contact: Centers for Disease Control and Prevention www.cdc.gov/injury * This information may not apply if you have certain medical conditions. documented in this encounter [facility] 09-18-2024 Note HNO ID: [id number] Author: ZEYNEP SCHMIDT APRN.ROLL COATING MACHINE OPERATOR Service: ? Author Type: Nurse Practitioner Type: Progress Notes Filed: 09/18/2024 12:52 Note Text: 09/18/2024 Patient presents with: 6 month follow up SUBJECTIVE: This is a 74 year old that is here today for Above Complaints. Since last office visit has been in good health without ER visits or hospitalizations. DIABETES MELLITUS: Since our last visit she denies excessive thirst or increased frequency of urination, chest pain or dyspnea , numbness, tingling or pain in extremities, new or unusual visual symptoms, low sugar/hypoglycemic reactions, weight loss/gain, lightheadedness/dizziness, and bowel changes/loose stools Follows a diabetic diet most of the time. She reports checking her glucose on a once a day schedule with sugars in the fasting less than 150 range. Patient's last HgA1C was Hemoglobin A1C (%) Date Value 03/06/2024 6.6 09/06/2023 6.5 09/14/2021 6.3 03/12/2021 6.6 ) Last Ophthalmology exam was within the past 12 months CKD: Following with nephrology for CKD with last office visit on 05/14/2024. Recommended follow-up in 6 months. Has not scheduled. Tries to eat low salt diet and avoids NSAID products HTN: Patient is compliant with meds Yes Monitors bp at home: No. Denies side effects: Yes. Chest pain: No. Dyspnea: No. Edema: No. Palpitations: No. Syncope: No. Headache: No. Dizziness: No. HYPOTHYROIDISM: taking synthroid as prescribed without side effects Tobacco use: continue to smoke 1 pack of cigarettes a day. No desire to quit at this time. Has not complete lung cancer screening Followed up with vascular surgery for hx of AAA on 05/21/2024. No medication changes made at visit. Advised to quit smoking. Recommended follow-up in one year. Denies abdominal or back pain Following with neurology for hx of tremor. Last office visit on 05/15/2024. No medication changes made at that time. Has upcoming follow-up on 05/16/2025. CAD: follows with [facility] cardiology. Patient reports follow-up but not sure when she saw them last. Denies SOB, dyspnea, orthopnea, cough, chest pain or palpitations. PAST MEDICAL HISTORY Diagnosis Date Asthma See PFT 12/2020 Cataracts, bilateral CKD (chronic kidney disease), stage III (HCC) Coronary artery disease s/p PTCA with [facility] to RCA 04/27, 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 Thompson Non-rheumatic mitral regurgitation 10/03/2017 Onychomycosis Shingles Statin intolerance Tobacco use disorder ALLERGIES Metformin, Poison Rahel Extract, and Ndcjkyo-Vir-Ejb Reductase Inhibitors MEDICATIONS Current Outpatient Medications Medication Sig primidone (MYSOLINE) 50 mg tablet Take 2 tablets by mouth daily at bedtime. lisinopril (ZESTRIL) 20 mg tablet Take 1 tablet by mouth two times a day. sertraline (ZOLOFT) 100 mg tablet Take 1 tablet by mouth once daily. amLODIPine (NORVASC) 10 mg tablet Take 1 tablet by mouth once daily. Lancets Test blood sugar(s) 1 times daily. Dx: Type 2 DM - Uncontrolled E11.65 Insulin: No blood sugar diagnostic (BLOOD GLUCOSE TEST) test strip Test blood sugar(s) 1 times daily. Dx: Type 2 DM - Uncontrolled E11.65 Insulin: No cyclobenzaprine (FLEXERIL) 5 mg tablet Take 1 tablet by mouth two times a day as needed for muscle spasm (Pain). levothyroxine (SYNTHROID) 150 mcg tablet Take 1 tablet by mouth once daily. Take on empty stomach. For thyroid propranolol (INDERAL) 20 mg tablet Take 20 mg by mouth two times a day. acetaminophen (TYLENOL) 500 mg tablet Take 1,000 mg by mouth every 8 hours as needed for pain. loratadine (CLARITIN) 10 mg tablet Take 10 mg by mouth once daily. As needed hydroCHLOROthiazide 25 mg tablet Take 1 tablet by mouth every afternoon. albuterol HFA (VENTOLIN HFA) 90 mcg/actuation inhaler Inhale 2 Puffs as instructed every 4 hours as needed. Blood-Glucose Meter monitoring kit Glucose Meter of Choice - Kit - Use once daily Dx: Type 2 DM - Uncontrolled E11.65 aspirin, enteric coated (ASPIRIN, ENTERIC COATED) 81 mg EC tablet Take 81 mg by mouth once daily. NITROGLYCERIN BUCCAL Place between cheek and gum. No current facility-administered medications for this visit. Medications and allergies reviewed by this provider. SOCIAL HISTORY Social History Tobacco Use Smoking status: Every Day Current packs/day: 1.00 Average packs/day: 1 pack/day for 55.4 years (55.4 ttl pk-yrs) Types: Cigarettes Start date: 08/14/1969 Smokeless tobacco: Never Vaping Use Vaping status: Never Used Substance Use Topics Alcohol use: No Comment: Rarely Drug use: No REVIEW OF SYSTEMS All other reviewed and negative other than HPI. OBJECTIVE: BP 98/62 Pulse 70 Resp 18 Wt 96.8 kg (213 lb 6.5 oz) SpO2 96% BMI 38.68 kg/m? . (more content not included)... [facility] 09-18-2024 History of Presen t illness Narrative 09/18/2024 Patient presents with: 6 month follow up SUBJECTIVE: This is a 74 year old that is here today for Above Complaints. Since last office visit has been in good health without ER visits or hospitalizations. DIABETES MELLITUS: Since our last visit she denies excessive thirst or increased frequency of urination, chest pain or dyspnea , numbness, tingling or pain in extremities, new or unusual visual symptoms, low sugar/hypoglycemic reactions, weight loss/gain, lightheadedness/dizziness, and bowel changes/loose stools Follows a diabetic diet most of the time. She reports checking her glucose on a once a day schedule with sugars in the fasting less than 150 range. Patient's last HgA1C was Hemoglobin A1C (%) Date Value 03/06/2024 6.6 09/06/2023 6.5 09/14/2021 6.3 03/12/2021 6.6 ) Last Ophthalmology exam was within the past 12 months CKD: Following with nephrology for CKD with last office visit on 05/14/2024. Recommended follow-up in 6 months. Has not scheduled. Tries to eat low salt diet and avoids NSAID products HTN: Patient is compliant with meds Yes Monitors bp at home: No. Denies side effects: Yes. Chest pain: No. Dyspnea: No. Edema: No. Palpitations: No. Syncope: No. Headache: No. Dizziness: No. HYPOTHYROIDISM: taking synthroid as prescribed without side effects Tobacco use: continue to smoke 1 pack of cigarettes a day. No desire to quit at this time. Has not complete lung cancer screening Followed up with vascular surgery for hx of AAA on 05/21/2024. No medication changes made at visit. Advised to quit smoking. Recommended follow-up in one year. Denies abdominal or back pain Following with neurology for hx of tremor. Last office visit on 05/15/2024. No medication changes made at that time. Has upcoming follow-up on 05/16/2025. CAD: follows with [facility] cardiology. Patient reports follow-up but not sure when she saw them last. Denies SOB, dyspnea, orthopnea, cough, chest pain or palpitations. PAST MEDICAL HISTORY Diagnosis Date Asthma See PFT 12/2020 Cataracts, bilateral CKD (chronic kidney disease), stage III (HCC) Coronary artery disease s/p PTCA with [facility] to RCA 04/27, 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 Thompson Non-rheumatic mitral regurgitation 10/03/2017 Onychomycosis Shingles Statin intolerance Tobacco use disorder ALLERGIES Metformin, Poison Rahel Extract, and Tpplpdj-Ctl-Uxk Reductase Inhibitors MEDICATIONS Current Outpatient Medications Medication Sig primidone (MYSOLINE) 50 mg tablet Take 2 tablets by mouth daily at bedtime. lisinopril (ZESTRIL) 20 mg tablet Take 1 tablet by mouth two times a day. sertraline (ZOLOFT) 100 mg tablet Take 1 tablet by mouth once daily. amLODIPine (NORVASC) 10 mg tablet Take 1 tablet by mouth once daily. Lancets Test blood sugar(s) 1 times daily. Dx: Type 2 DM - Uncontrolled E11.65 Insulin: No blood sugar diagnostic (BLOOD GLUCOSE TEST) test strip Test blood sugar(s) 1 times daily. Dx: Type 2 DM - Uncontrolled E11.65 Insulin: No cyclobenzaprine (FLEXERIL) 5 mg tablet Take 1 tablet by mouth two times a day as needed for muscle spasm (Pain). levothyroxine (SYNTHROID) 150 mcg tablet Take 1 tablet by mouth once daily. Take on empty stomach. For thyroid propranolol (INDERAL) 20 mg tablet Take 20 mg by mouth two times a day. acetaminophen (TYLENOL) 500 mg tablet Take 1,000 mg by mouth every 8 hours as needed for pain. loratadine (CLARITIN) 10 mg tablet Take 10 mg by mouth once daily. As needed hydroCHLOROthiazide 25 mg tablet Take 1 tablet by mouth every afternoon. albuterol HFA (VENTOLIN HFA) 90 mcg/actuation inhaler Inhale 2 Puffs as instructed every 4 hours as needed. Blood-Glucose Meter monitoring kit Glucose Meter of Choice - Kit - Use once daily Dx: Type 2 DM - Uncontrolled E11.65 aspirin, enteric coated (ASPIRIN, ENTERIC COATED) 81 mg EC tablet Take 81 mg by mouth once daily. NITROGLYCERIN BUCCAL Place between cheek and gum. No current facility-administered medications for this visit. Medications and allergies reviewed by this provider. SOCIAL HISTORY Social History Tobacco Use Smoking status: Every Day Current packs/day: 1.00 Average packs/day: 1 pack/day for 55.4 years (55.4 ttl pk-yrs) Types: Cigarettes Start date: 08/14/1967 Smokeless tobacco: Never Vaping Use Vaping status: Never Used Substance Use Topics Alcohol use: No Comment: Rarely Drug use: No REVIEW OF SYSTEMS All other reviewed and negative other than HPI. OBJECTIVE: BP 98/62 Pulse 70 Resp 18 Wt 96.8 kg (213 lb 6.5 oz) SpO2 96% BMI 38.68 kg/m . Vital signs reviewed by this provider. APPEARANCE Well appearing, alert, in no acute distress, well-hydrated, well nourished. EYES conjunctiva and sclera normal. HEART RRR with normal S1 and S2, no murmurs, no gallops, no JVD appreciated LUNG Diminished throughout. No wheezes, rhonchi or rales EXTREMITIES Extremities normal, No deformities, No skin discoloration, and No edema SKIN Skin color, texture, turgor normal, no suspicious rashes or lesions to exposed skin Latest Ref Rng 03/18/2024 Protein, Total 6.3 - 8.0 g/dL 7.2 Albumin 3.9 - 4.9 g/dL 4.4 Calcium 8.5 - 10.2 mg/dL 9.4 Bilirubin, Total 0.2 - 1.3 mg/dL 0.2 Alkaline Phosphatase 34 - 123 U/L 79 AST 13 - 35 U/L 16 ALT 7 - 38 U/L 6 (L) Glucose 74 - 99 mg/dL 111 (H) BUN 7 - 21 mg/dL 30 (H) Creatinine 0.58 - 0.96 mg/dL 1.41 (H) Sodium 136 - 144 mmol/L 138 Potassium 3.7 - 5.1 mmol/L 5.3 (H) Chloride 98 - 107 mmol/L 105 CO2 22 - 30 mmol/L 23 Anion Gap 8 - 15 mmol/L 10 eGFR >=60 mL/min/1.73m 40 (L) Legend: (L) Low (H) High Anxiety Screening Never done DTaP,Tdap,Td Vaccine(1 - Tdap) Never done Lung Cancer Screening Never done Shingrix Vaccine(1 of 2) Never done RSV Vaccine(1 - Risk 60-74 years 1-dose series) Never done Mammogram Screening due on 08/13/2021 Colorectal Cancer Screening due on 06/24/2024 Advance Directive Discussion due on 08/14/2024 HbA1C due on 09/06/2024 LDL Cholesterol due on 09/06/2024 Alpha-1 Antitrypsin Deficiency Screening due on 12/11/2024 Diabetic Foot Exam due on 03/18/2025 Serum Creatinine due on 03/18/2025 Hemoglobin/Hematocrit due on 03/18/2025 Dilated Retinal Exam due on 04/02/2025 Urine Albumin:Creatinine Ratio due on 05/14/2025 Annual PCP Team Chronic Disease Visit due on 09/18/2025 BP Controlled (<130/80) due on 09/18/2025 Bone Density Screening Completed Spirometry Completed Influenza Vaccine Completed Hepatitis C Screening Completed Covid-19 Vaccine Completed Pneumococcal Vaccine: 50+ Completed ASSESSMENT/PLAN: 1. Essential hypertension - ICD9: 401.9, ICD10: I10 (primary diagnosis) - Controlled - Continue current medications - Recommend home blood pressure monitoring, to bring results to next visit - Encouraged sodium restriction, DASH or Mediterranean diet - Recommend regular aerobic exercise - Discussed need for and benefit of weight loss. BMI 38.68 kg/(m^2) - Smoking cessation encouraged; discussed risks to health and quitting strategies. Patient is not ready to quit - Follow up in 6 months for hypertension visit 2. Type 2 diabetes mellitus with stage 3a chronic kidney disease, without long-term current use of insulin ([facility]) - ICD9: 250.40, 585.3, ICD10: E11.22, N18.31 - Control undetermined, due for labs - Statin prescribed - No, intolerance - Blood glucose monitoring on a once daily schedule - Counseled on healthy diet and regular exercise - Discussed need for and benefit of weight loss. BMI 38.68 kg/(m^2) - Smoking cessation encouraged; discussed risks to health and quitting strategies. Patient is not ready to quit - Follow up in 6 months, sooner should any other issues arise. - eGFR: 40 Stable - Counseled on avoiding NSAIDs, adequate hydration - Counseled on low sodium diet - ACEi/ARB prescribed: Yes - HEMOGLOBIN A1C - COMPREHENSIVE METABOLIC PANEL - LIPID PANEL BASIC 3. CKD stage 3b, GFR 30-44 ml/min ([facility]) - ICD9: 585.3, ICD10: N18.32 - eGFR: 40 Stable - Counseled on avoiding NSAIDs, adequate hydration - Counseled on low sodium diet - ACEi/ARB prescribed: Yes - Follow up with kidney medicine 4. Acquired hypothyroidism - ICD9: 244.9, ICD10: E03.9 - Instructed patient on importance of taking on an empty stomach either first thing in the morning or at bedtime. - continue current dose of Synthroid 0.150 mg - Follow up in 6 months - THYROID STIMULATING HORMONE 5. Tobacco use disorder - ICD9: 305.1, ICD10: F17.200 - Cessation encouraged. - Physiologic and physical aspects of tobacco addiction as well as strategies for quitting were discussed. - Counseling was given focusing on the harmful effects of this addiction especially given the patient's medical condition(s) which will be worsened because of the chemicals in tobacco. 6. Body mass index (BMI) 40.0-44.9, adult (HCC) - ICD9: V85.41, ICD10: Z68.41 Stable - Behavioral intervention - Lengthy discussion in office today regarding diet and exercise. Discussed use of small plate to eat meals from, drink 1 glass of water 10-15 minutes prior to eating meal, drink 8 glasses of water daily, eat fresh fruit and vegetable during meal first then lean protein such as grilled/baked chicken breast or fish, limit carbohydrate intake (less pasta, breads, rice and snack foods) as well as limiting sugars (desserts etc). Important to count / track your calories and exercise as well. 7. Abnormality of gait - ICD9: 781.2, ICD10: R26.9 - continue to use cane for ambulation - FALLS RISK EDUCATION 8. Falling episodes - ICD9: 781.99, E888.9, ICD10: R29.6 - continue to use cane for ambulation - FALLS RISK EDUCATION 9 Statin intolerance - ICD9: 995.27, ICD10: Z78.9 - continue low saturated fat diet and aim for at least 150 minutes of exercise per week 10. Mixed hyperlipidemia - ICD9: 272.2, ICD10: E78.2 - Control undetermined, due for labs - Counseled on healthy diet and regular exercise - Discussed need for and benefit of weight loss. BMI 38.68 kg/(m^2) - Follow up in 6 months, sooner should any other issues arise. 11. Coronary artery disease involving [place] coronary artery of [place] heart without angina pectoris - ICD9: 414.01, ICD10: I25.10 - continue current medications - follow-up with cardiology as recommended 12. Stented coronary artery - ICD9: V45.82, ICD10: Z95.5 - plan as in #11 13. 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 Patient advised if symptoms do not improve or if symptoms worsen sooner, to contact their primary care physician. Potential red flag symptoms discussed with the patient. Reviewed appropriate action plan to take if red flag symptoms occur. Patient agreeable to treatment plan. Medical Decision Making: Problems: Moderate: 2+ stable chronic illnesses Data: Unique test(s) ordered: 3+ Risk: Moderate: Moderate risk from testing/treatment Medical Decision Making Level: 4 - Moderate documented in this encounter [facility] 09-18-2024 Evaluation note Diagnosis Essential hypertension- Primary Unspecified essential hypertension Type 2 diabetes mellitus with stage 3a chronic kidney disease, without long-term current use of insulin ([facility]) CKD stage 3b, GFR 30-44 ml/min ([facility]) Acquired hypothyroidism Unspecified hypothyroidism Tobacco use disorder Body mass index (BMI) 40.0-44.9, adult ([facility]) Abnormality of gait Falling episodes Lack of coordination Statin intolerance Other drug allergy Mixed hyperlipidemia Coronary artery disease involving [place] coronary artery of [place] heart without angina pectoris Stented coronary artery Postsurgical percutaneous transluminal coronary angioplasty status Tremor Abnormal involuntary movements documented in this encounter [facility]01-28-2025 Telephone encounter Note* Telephone Encounter - Brooke Zuñiga RN - 09/10/2024 10:02 AM EST Last OV 05/15/24 Next OV 05/16/25 [facility]01-28-2025 Miscellaneous Notes* Telephone Encounter - Brooke Zuñiga RN - 09/10/2024 10:02 AM EST Last OV 05/15/24 Next OV 05/16/25 [facility] Telephone encounter Note * Telephone Encounter - Mariella Cardona LPN - 09/10/2024 7:45 AM EST Prescription Refill Information The patient has been identified by name and date of : Yes Caregiver verified no other encounters exist for this prescription request: Yes Caregiver confirmed with patient/requestor that no other refills are due, in the near future, with this provider at this time: Yes The last office visit in the department: 04/19/2024 Does the patient have a future office visit with this provider/department: Yes Requested Prescriptions Pending Prescriptions Disp Refills lisinopril (ZESTRIL) 20 mg tablet 180 tablet 1 Sig: Take 1 tablet by mouth two times a day. Mariella Cardona LPN September 10, 2024 7:45 AM [facility]01-28-2025 Miscellaneous Notes* Telephone Encounter - Mariella Cardona LPN - 09/10/2024 7:45 AM EST Prescription Refill Information The patient has been identified by name and date of : Yes Caregiver verified no other encounters exist for this prescription request: Yes Caregiver confirmed with patient/requestor that no other refills are due, in the near future, with this provider at this time: Yes The last office visit in the department: 04/19/2024 Does the patient have a future office visit with this provider/department: Yes Requested Prescriptions Pending Prescriptions Disp Refills lisinopril (ZESTRIL) 20 mg tablet 180 tablet 1 Sig: Take 1 tablet by mouth two times a day. Mariella Cardona LPN September 10, 2024 7:45 AM documented in this encounterK[facility] Telephone encounter Note * Telephone Encounter - Mariella Cardona LPN - 09/10/2024 7:42 AM EST Prescription Refill Information The patient has been identified by name and date of : Yes Caregiver verified no other encounters exist for this prescription request: Yes Caregiver confirmed with patient/requestor that no other refills are due, in the near future, with this provider at this time: Yes The last office visit in the department: 03/18/2024 Does the patient have a future office visit with this provider/department: Yes Requested Prescriptions Pending Prescriptions Disp Refills sertraline (ZOLOFT) 100 mg tablet 90 tablet 1 Sig: Take 1 tablet by mouth once daily. Mariella Cardona LPN September 10, 2024 7:42 AM [facility]01-28-2025 Miscellaneous Notes* Telephone Encounter - Mariella Cardona LPN - 09/10/2024 7:42 AM EST Prescription Refill Information The patient has been identified by name and date of : Yes Caregiver verified no other encounters exist for this prescription request: Yes Caregiver confirmed with patient/requestor that no other refills are due, in the near future, with this provider at this time: Yes The last office visit in the department: 03/18/2024 Does the patient have a future office visit with this provider/department: Yes Requested Prescriptions Pending Prescriptions Disp Refills sertraline (ZOLOFT) 100 mg tablet 90 tablet 1 Sig: Take 1 tablet by mouth once daily. Mariella Cardona LPN September 10, 2024 7:42 AM documented in this encounterK[facility] Telephone encounter Note * Telephone Encounter - Mariella Cardona LPN - 08/27/2024 7:11 AM EST Prescription Refill Information The patient has been identified by name and date of : Yes Caregiver verified no other encounters exist for this prescription request: Yes Caregiver confirmed with patient/requestor that no other refills are due, in the near future, with this provider at this time: Yes The last office visit in the department: 03/18/2024 Does the patient have a future office visit with this provider/department: Yes Requested Prescriptions Pending Prescriptions Disp Refills amLODIPine (NORVASC) 10 mg tablet 90 tablet 1 Sig: Take 1 tablet by mouth once daily. Mariella Cardona LPN August 27, 2024 7:11 AM [facility]01-14-2025 Miscellaneous Notes* Telephone Encounter - Mariella Cardona LPN - 08/27/2024 7:11 AM EST Prescription Refill Information The patient has been identified by name and date of : Yes Caregiver verified no other encounters exist for this prescription request: Yes Caregiver confirmed with patient/requestor that no other refills are due, in the near future, with this provider at this time: Yes The last office visit in the department: 03/18/2024 Does the patient have a future office visit with this provider/department: Yes Requested Prescriptions Pending Prescriptions Disp Refills amLODIPine (NORVASC) 10 mg tablet 90 tablet 1 Sig: Take 1 tablet by mouth once daily. Mariella Cardona LPN August 27, 2024 7:11 AM documented in this encounterK[facility] Telephone encounter Note * Telephone Encounter - Aliya Denise LPN - 07/29/2024 8:19 AM EST Prescription Refill Information The patient has been identified by name and date of : Yes Caregiver verified no other encounters exist for this prescription request: Yes Caregiver confirmed with patient/requestor that no other refills are due, in the near future, with this provider at this time: Yes The last office visit in the department: 04/19/24 Does the patient have a future office visit with this provider/department: Yes Requested Prescriptions Pending Prescriptions Disp Refills Lancets 100 Each 11 Sig: Test blood sugar(s) 1 times daily. Dx: Type 2 DM - Uncontrolled E11.65 Insulin: No blood sugar diagnostic (BLOOD GLUCOSE TEST) test strip 50 Strip 11 Sig: Test blood sugar(s) 1 times daily. Dx: Type 2 DM - Uncontrolled E11.65 Insulin: No Aliya Denise LPN July 29, 2024 8:19 AM [facility]12-16-2024 Miscellaneous Notes* Telephone Encounter - Aliya Denise LPN - 07/29/2024 8:19 AM EST Prescription Refill Information The patient has been identified by name and date of : Yes Caregiver verified no other encounters exist for this prescription request: Yes Caregiver confirmed with patient/requestor that no other refills are due, in the near future, with this provider at this time: Yes The last office visit in the department: 04/19/24 Does the patient have a future office visit with this provider/department: Yes Requested Prescriptions Pending Prescriptions Disp Refills Lancets 100 Each 11 Sig: Test blood sugar(s) 1 times daily. Dx: Type 2 DM - Uncontrolled E11.65 Insulin: No blood sugar diagnostic (BLOOD GLUCOSE TEST) test strip 50 Strip 11 Sig: Test blood sugar(s) 1 times daily. Dx: Type 2 DM - Uncontrolled E11.65 Insulin: No Aliya Denise LPN July 29, 2024 8:19 AM documented in this encounterK[facility] Telephone encounter Note * Telephone Encounter - Lance Manuel - 07/29/2024 7:59 AM EST Pt read mc [facility]12-16-2024 Miscellaneous Notes* Telephone Encounter - Lance Manuel - 07/29/2024 7:59 AM EST Pt read mc * Telephone Encounter - Destiny Renee - 07/25/2024 12:36 PM EST 05/16/25 Mya appt changed to 11:30AM. 1st attempt to inform pt, sent MC message. documented in this encounterK[facility] Telephone encounter Note * Telephone Encounter - Destiny Renee - 07/25/2024 12:36 PM EST 05/16/25 Mya appt changed to 11:30AM. 1st attempt to inform pt, sent MC message. [facility]12-05-2024 NoteHNO ID: [id number] Author: BROOKE RAO RN Service: ? Author Type: Registered Nurse Type: Progress Notes Filed: 07/18/2024 10:25 Note Text: [facility] Telephonic Outreach Provider Christos/FRANCOISE Instructed patient on checking and recording blood pressure at home Contacted for: Routine Telephonic Outreach Contact made with patient: Yes Patient identified by name and date of . Discussed care with patient Are you experiencing any new or worsening symptoms you need to talk about today? No Disease Specific Do you check your blood pressure at home? Yes, Enter readings: 132/68 Do you have new or worsening shortness of breath with activity? No Do you feel like you are dehydrated for any reason, including not being able to eat or drink normally, or having less urine/much darker urine than normal for you? No Do you check your daily weight at home? Yes, Have you noticed a sudden gain in weight greater than three pounds in a day or three pounds in a week? No and Do you have new or worsening cough? No Do you have new or worsening wheezing? No Do you need to use your rescue (Albuterol) inhaler or nebulizer more often than normal? 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 Routed to: No Action Needed ALLEN Education Provided this Outreach: No Brooke Rao RN July 18, 2024 10:24 [facility]12-05-2024 History of Present illness Narrative* Brooke Rao RN - 07/18/2024 10:21 AM EST [facility] Telephonic Outreach Provider Nery Instructed patient on checking and recording blood pressure at home Contacted for: Routine Telephonic Outreach Contact made with patient: Yes Patient identified by name and date of . Discussed care with patient Are you experiencing any new or worsening symptoms you need to talk about today? No Disease Specific Do you check your blood pressure at home? Yes, Enter readings: 132/68 Do you have new or worsening shortness of breath with activity? No Do you feel like you are dehydrated for any reason, including not being able to eat or drink normally, or having less urine/much darker urine than normal for you? No Do you check your daily weight at home? Yes, Have you noticed a sudden gain in weight greater than three pounds in a day or three pounds in a week? No and Do you have new or worsening cough? No Do you have new or worsening wheezing? No Do you need to use your rescue (Albuterol) inhaler or nebulizer more often than normal? 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 Routed to: No Action Needed ALLEN Education Provided this Outreach: No Brooke Rao RN July 18, 2024 10:24 AM documented in this encounterK[facility] NotePatient Outreach ([facility]) ZORAIDA BARTH ([id number]) 1950 F Date Time Provider Department 07/18/24 BROOKE RAO During your visit today, we recorded the following information about you: Brooke Rao RN 07/18/2024 10:25 AM Signed CDM Telephonic Outreach Provider Action/FYI Instructed patient on checking and recording blood pressure at home Contacted for: Routine Telephonic Outreach Contact made with patient: Yes Patient identified by name and date of . Discussed care with patient Are you experiencing any new or worsening symptoms you need to talk about today? No Disease Specific Do you check your blood pressure at home? Yes, Enter readings: 132/68 Do you have new or worsening shortness of breath with activity? No Do you feel like you are dehydrated for any reason, including not being able to eat or drink normally, or having less urine/much darker urine than normal for you? No Do you check your daily weight at home? Yes, Have you noticed a sudden gain in weight greater than three pounds in a day or three pounds in a week? No and Do you have new or worsening cough? No Do you have new or worsening wheezing? No Do you need to use your rescue (Albuterol) inhaler or nebulizer more often than normal? 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 Routed to: No Action Needed ALLEN Education Provided this Outreach: No Brooke Rao RN July 18, 2024 10:24 AM Allergies As of Date: 07/18/2024 Noted Allergy Reaction METFORMIN 07/27/2022 8 - GI Upset POISON RAHEL EXTRACT 12/24/2021 14 - Other: See Comments Comments: Severe rash [id number] REDUCTASE INHIBIT*09/05/2012 14 - Other: See Comments Comments: cholesterol medications cause liver pain Date Reviewed: 05/21/2024 Reviewed by: Charlette Gomez RN - Fully Assessed Reason for Visit: CDM [Other] Cmt: Community Monitoring Outreach Call Prescriptions as of 08/09/2024 - Lancets Test blood sugar(s) 1 times daily. Dx: Type 2 DM - Uncontrolled E11.65 Insulin: No - blood sugar diagnostic (BLOOD GLUCOSE TEST) test strip Test blood sugar(s) 1 times daily. Dx: Type 2 DM - Uncontrolled E11.65 Insulin: No - cyclobenzaprine (FLEXERIL) 5 mg tablet Take 1 tablet by mouth two times a day as needed for muscle spasm (Pain). - levothyroxine (SYNTHROID) 150 mcg tablet Take 1 tablet by mouth once daily. Take on empty stomach. For thyroid - sertraline (ZOLOFT) 100 mg tablet Take 1 tablet by mouth once daily. - lisinopril (ZESTRIL) 20 mg tablet Take 1 tablet by mouth two times a day. - amLODIPine (NORVASC) 10 mg tablet Take 1 tablet by mouth once daily. - propranolol (INDERAL) 20 mg tablet Take 20 mg by mouth two times a day. - acetaminophen (TYLENOL) 500 mg tablet Take 1,000 mg by mouth every 8 hours as needed for pain. - loratadine (CLARITIN) 10 mg tablet Take 10 mg by mouth once daily. As needed - primidone (MYSOLINE) 50 mg tablet Take 2 tablets by mouth daily at bedtime. - hydroCHLOROthiazide 25 mg tablet Take 1 tablet by mouth every afternoon. - albuterol HFA (VENTOLIN HFA) 90 mcg/actuation inhaler Inhale 2 Puffs as instructed every 4 hours as needed. - Blood-Glucose Meter monitoring kit Glucose Meter of Choice - Kit - Use once daily Dx: Type 2 DM - Uncontrolled E11.65 - aspirin, enteric coated (ASPIRIN, ENTERIC COATED) 81 mg EC tablet Take 81 mg by mouth once daily. - NITROGLYCERIN BUCCAL Place between cheek and gum. 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] 10/02/2017 Depression [F32.A] 10/02/2017 02/20/2018 Non-rheumatic mitral regurgitation [I34.0] 10/03/2017 Liver cyst [K76.89] 10/03/2017 Tobacco use disorder [F17.200] Type 2 diabetes mellitus with stage 3a chronic * Hypertensive kidney disease with stage 3a chron*03/15/2021 Mild chronic obstructive pulmonary disease (HCC*01/28/2023 Body mass index (BMI) 40.0-44.9, adult (HCC) [Z*01/28/2023 Chronic bilateral low back pain with bilateral *03/14/2023 Statin intolerance [Z78.9] 09/12/2023 Obesity, Class II, BMI 35-39.9 [E66.812] 10/04/2023 Eye abnormalities [Q15.9] 10/04/2023 Drowsy [R40.0] 10/04/2023 Acute hip pain, left [M25.552] 11/02/2023 Encounter Status:Closed by BROOKE RAO on 07/18/24[facility] 07-17-2024 NotePatient Outreach ([facility]) ZORAIDA BARTH ([id number]) 1950 F Date Time Provider Department 07/17/24 SHERRI DAVALOS [facility] During your visit today, we recorded the following information about you: Allergies As of Date: 07/17/2024 Noted Allergy Reaction METFORMIN 07/27/2022 8 - GI Upset POISON RAHEL EXTRACT 12/24/2021 14 - Other: See Comments Comments: Severe rash [id number] REDUCTASE INHIBIT*09/05/2012 14 - Other: See Comments Comments: cholesterol medications cause liver pain Date Reviewed: 05/21/2024 Reviewed by: Charlette Gomez, JAZMYNE - Fully Assessed Visit Diagnosis:Encounter for screening mammogram for breast cancer [Z12.31] Order(s):[facility] SCREENING [facility] [[id number]] Order #: [id number] FUTURE Prescriptions as of 07/22/2024 - cyclobenzaprine (FLEXERIL) 5 mg tablet Take 1 tablet by mouth two times a day as needed for muscle spasm (Pain). - levothyroxine (SYNTHROID) 150 mcg tablet Take 1 tablet by mouth once daily. Take on empty stomach. For thyroid - sertraline (ZOLOFT) 100 mg tablet Take 1 tablet by mouth once daily. - lisinopril (ZESTRIL) 20 mg tablet Take 1 tablet by mouth two times a day. - amLODIPine (NORVASC) 10 mg tablet Take 1 tablet by mouth once daily. - propranolol (INDERAL) 20 mg tablet Take 20 mg by mouth two times a day. - acetaminophen (TYLENOL) 500 mg tablet Take 1,000 mg by mouth every 8 hours as needed for pain. - loratadine (CLARITIN) 10 mg tablet Take 10 mg by mouth once daily. As needed - primidone (MYSOLINE) 50 mg tablet Take 2 tablets by mouth daily at bedtime. - hydroCHLOROthiazide 25 mg tablet Take 1 tablet by mouth every afternoon. - blood sugar diagnostic (BLOOD GLUCOSE TEST) test strip Test blood sugar(s) 1 times daily. Dx: Type 2 DM - Uncontrolled E11.65 Insulin: No - albuterol HFA (VENTOLIN HFA) 90 mcg/actuation inhaler Inhale 2 Puffs as instructed every 4 hours as needed. - Lancets lancets Test blood sugar(s) 1 times daily. Dx: Type 2 DM - Uncontrolled E11.65 Insulin: No - Blood-Glucose Meter monitoring kit Glucose Meter of Choice - Kit - Use once daily Dx: Type 2 DM - Uncontrolled E11.65 - aspirin, enteric coated (ASPIRIN, ENTERIC COATED) 81 mg EC tablet Take 81 mg by mouth once daily. - NITROGLYCERIN BUCCAL Place between cheek and gum. 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*04/20/2017 Coronary artery disease [I25.10] 08/22/2017 Prediabetes [R73.03] 07/27/2022 Stage 3a chronic kidney disease (HCC) [N18.31] Biliary colic [K80.50] 09/25/2017 Hyperlipidemia [E78.5] 10/02/2017 Gallstones [K80.20] 10/02/2017 Stented coronary artery [Z95.5] 10/02/2017 Horseshoe kidney [Q63.1] 10/02/2017 Depression [F32.A] 10/02/2017 02/20/2018 Non-rheumatic mitral regurgitation [I34.0] 10/03/2017 Liver cyst [K76.89] 10/03/2017 Tobacco use disorder [F17.200] Type 2 diabetes mellitus with stage 3a chronic * Hypertensive kidney disease with stage 3a chron*03/15/2021 Mild chronic obstructive pulmonary disease (HCC*01/28/2023 Body mass index (BMI) 40.0-44.9, adult (HCC) [Z*01/28/2023 Chronic bilateral low back pain with bilateral *03/14/2023 Statin intolerance [Z78.9] 09/12/2023 Obesity, Class II, BMI 35-39.9 [E66.812] 10/04/2023 Eye abnormalities [Q15.9] 10/04/2023 Drowsy [R40.0] 10/04/2023 Acute hip pain, left [M25.552] 11/02/2023 Encounter Status:Closed by ANAIS VILLAFUERTE on 07/22/24[facility] 06-20-2024 NoteHNO ID: [id number] Author: BROOKE RAO RN Service: ? Author Type: Registered Nurse Type: Progress Notes Filed: 06/20/2024 10:03 Note Text: [facility] Telephonic Outreach Provider Action/FYI Contacted for: Routine Telephonic Outreach Contact made with patient: Yes Patient identified by name and date of . Discussed care with patient Are you experiencing any new or worsening symptoms you need to talk about today? No Disease Specific Do you check your blood pressure at home? Yes, Enter readings: 130/68 Do you have new or worsening shortness of breath with activity? No Do you feel like you are dehydrated for any reason, including not being able to eat or drink normally, or having less urine/much darker urine than normal for you? No Do you check your daily weight at home? Yes, Have you noticed a sudden gain in weight greater than three pounds in a day or three pounds in a week? No and Do you have new or worsening cough? No Do you have new or worsening wheezing? No Do you need to use your rescue (Albuterol) inhaler or nebulizer more often than normal? 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 Routed to: No Action Needed ALLEN Education Provided this Outreach: No Brooke Rao RN June 20, 2024 10:02 [facility]11-07-2024 History of Present illness Narrative* Brooke Rao RN - 06/20/2024 9:58 AM EST [facility] Telephonic Outreach Provider Action/FYI Contacted for: Routine Telephonic Outreach Contact made with patient: Yes Patient identified by name and date of . Discussed care with patient Are you experiencing any new or worsening symptoms you need to talk about today? No Disease Specific Do you check your blood pressure at home? Yes, Enter readings: 130/68 Do you have new or worsening shortness of breath with activity? No Do you feel like you are dehydrated for any reason, including not being able to eat or drink normally, or having less urine/much darker urine than normal for you? No Do you check your daily weight at home? Yes, Have you noticed a sudden gain in weight greater than three pounds in a day or three pounds in a week? No and Do you have new or worsening cough? No Do you have new or worsening wheezing? No Do you need to use your rescue (Albuterol) inhaler or nebulizer more often than normal? 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 Routed to: No Action Needed ALLEN Education Provided this Outreach: No Brooke Rao RN June 20, 2024 10:02 AM [facility] NotePatient Outreach ([facility]) ZORAIDA BARTH ([id number]) 1950 F Date Time Provider Department 06/20/24 BROOKE RAO During your visit today, we recorded the following information about you: Brooke Rao RN 06/20/2024 10:03 AM Signed [facility] Telephonic Outreach Provider Action/FYI Contacted for: Routine Telephonic Outreach Contact made with patient: Yes Patient identified by name and date of . Discussed care with patient Are you experiencing any new or worsening symptoms you need to talk about today? No Disease Specific Do you check your blood pressure at home? Yes, Enter readings: 130/68 Do you have new or worsening shortness of breath with activity? No Do you feel like you are dehydrated for any reason, including not being able to eat or drink normally, or having less urine/much darker urine than normal for you? No Do you check your daily weight at home? Yes, Have you noticed a sudden gain in weight greater than three pounds in a day or three pounds in a week? No and Do you have new or worsening cough? No Do you have new or worsening wheezing? No Do you need to use your rescue (Albuterol) inhaler or nebulizer more often than normal? 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 Routed to: No Action Needed ALLEN Education Provided this Outreach: No Brooke Rao RN June 20, 2024 10:02 AM Allergies As of Date: 06/20/2024 Noted Allergy Reaction METFORMIN 07/27/2022 8 - GI Upset POISON RAHEL EXTRACT 12/24/2021 14 - Other: See Comments Comments: Severe rash [id number] REDUCTASE INHIBIT*09/05/2012 14 - Other: See Comments Comments: cholesterol medications cause liver pain Date Reviewed: 05/21/2024 Reviewed by: Charlette Gomez RN - Fully Assessed Reason for Visit: CDM [Other] Cmt: Community Monitoring Outreach Call Prescriptions as of 06/20/2024 - cyclobenzaprine (FLEXERIL) 5 mg tablet Take 1 tablet by mouth two times a day as needed for muscle spasm (Pain). - levothyroxine (SYNTHROID) 150 mcg tablet Take 1 tablet by mouth once daily. Take on empty stomach. For thyroid - sertraline (ZOLOFT) 100 mg tablet Take 1 tablet by mouth once daily. - lisinopril (ZESTRIL) 20 mg tablet Take 1 tablet by mouth two times a day. - amLODIPine (NORVASC) 10 mg tablet Take 1 tablet by mouth once daily. - propranolol (INDERAL) 20 mg tablet Take 20 mg by mouth two times a day. - acetaminophen (TYLENOL) 500 mg tablet Take 1,000 mg by mouth every 8 hours as needed for pain. - loratadine (CLARITIN) 10 mg tablet Take 10 mg by mouth once daily. As needed - primidone (MYSOLINE) 50 mg tablet Take 2 tablets by mouth daily at bedtime. - hydroCHLOROthiazide 25 mg tablet Take 1 tablet by mouth every afternoon. - blood sugar diagnostic (BLOOD GLUCOSE TEST) test strip Test blood sugar(s) 1 times daily. Dx: Type 2 DM - Uncontrolled E11.65 Insulin: No - albuterol HFA (VENTOLIN HFA) 90 mcg/actuation inhaler Inhale 2 Puffs as instructed every 4 hours as needed. - Lancets lancets Test blood sugar(s) 1 times daily. Dx: Type 2 DM - Uncontrolled E1165 Insulin: No - Blood-Glucose Meter monitoring kit Glucose Meter of Choice - Kit - Use once daily Dx: Type 2 DM - Uncontrolled E11.65 - aspirin, enteric coated (ASPIRIN, ENTERIC COATED) 81 mg EC tablet Take 81 mg by mouth once daily. - NITROGLYCERIN BUCCAL Place between cheek and gum. 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*04/20/2017 Coronary artery disease [I25.10] 08/22/2017 Prediabetes [R73.03] 07/27/2022 Stage 3a chronic kidney disease (HCC) [N18.31] Biliary colic [K80.50] 09/25/2017 Hyperlipidemia [E78.5] 10/02/2017 Gallstones [K80.20] 10/02/2017 Stented coronary artery [Z95.5] 10/02/2017 Horseshoe kidney [Q63.1] 10/02/2017 Depression [F32.A] 10/02/2017 02/20/2018 Non-rheumatic mitral regurgitation [I34.0] 10/03/2017 Liver cyst [K76.89] 10/03/2017 Tobacco use disorder [F17.200] Type 2 diabetes mellitus with stage 3a chronic * Hypertensive kidney disease with stage 3a chron*03/15/2021 Mild chronic obstructive pulmonary disease (HCC*01/28/2023 Body mass index (BMI) 40.0-44.9, adult (HCC) [Z*01/28/2023 Chronic bilateral low back pain with bilateral *03/14/2023 Statin intolerance [Z78.9] 09/12/2023 Obesity, Class II, BMI 35-39.9 [E66.812] 10/04/2023 Eye abnormalities [Q15.9] 10/04/2023 Drowsy [R40.0] 10/04/2023 Acute hip pain, left [M25.552] 11/02/2023 Encounter Status:Closed by BROOKE RAO on 06/20/24[facility] 05-22-2024 NoteHNO ID: [id number] Author: BROOKE RAO RN Service: ? Author Type: Registered Nurse Type: Progress Notes Filed: 05/22/2024 12:08 Note Text: [facility] Telephonic Outreach Provider Action/FYI -confirmed upcoming appointments Contacted for: Routine Telephonic Outreach Contact made with patient: Yes Patient identified by name and date of . Discussed care with patient Are you experiencing any new or worsening symptoms you need to talk about today? No Disease Specific Do you check your blood pressure at home? Yes, Enter readings: 117/52 Do you have new or worsening shortness of breath with activity? No Do you feel like you are dehydrated for any reason, including not being able to eat or drink normally, or having less urine/much darker urine than normal for you? No Do you check your daily weight at home? Yes, Have you noticed a sudden gain in weight greater than three pounds in a day or three pounds in a week? No and Do you have new or worsening cough? No Do you have new or worsening wheezing? No Do you need to use your rescue (Albuterol) inhaler or nebulizer more often than normal? 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 Routed to: No Action Needed ALLEN Education Provided this Outreach: No Brooke Rao RN May 22, 2024 12:06 [facility]10-09-2024 History of Present illness Narrative* Brooke Rao RN - 05/22/2024 11:59 AM EDT [facility] Telephonic Outreach Provider Action/FYI -confirmed upcoming appointments Contacted for: Routine Telephonic Outreach Contact made with patient: Yes Patient identified by name and date of . Discussed care with patient Are you experiencing any new or worsening symptoms you need to talk about today? No Disease Specific Do you check your blood pressure at home? Yes, Enter readings: 117/52 Do you have new or worsening shortness of breath with activity? No Do you feel like you are dehydrated for any reason, including not being able to eat or drink normally, or having less urine/much darker urine than normal for you? No Do you check your daily weight at home? Yes, Have you noticed a sudden gain in weight greater than three pounds in a day or three pounds in a week? No and Do you have new or worsening cough? No Do you have new or worsening wheezing? No Do you need to use your rescue (Albuterol) inhaler or nebulizer more often than normal? 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 Routed to: No Action Needed ALLEN Education Provided this Outreach: No Brooke Rao RN May 22, 2024 12:06 PM [facility] NotePatient Outreach ([facility]) ZORAIDA BARTH ([id number]) 1950 F Date Time Provider Department 05/22/24 BROOKE RAO During your visit today, we recorded the following information about you: Brooke Rao RN 05/22/2024 12:08 PM Signed [facility] Telephonic Outreach Provider Action/ -confirmed upcoming appointments Contacted for: Routine Telephonic Outreach Contact made with patient: Yes Patient identified by name and date of . Discussed care with patient Are you experiencing any new or worsening symptoms you need to talk about today? No Disease Specific Do you check your blood pressure at home? Yes, Enter readings: 117/52 Do you have new or worsening shortness of breath with activity? No Do you feel like you are dehydrated for any reason, including not being able to eat or drink normally, or having less urine/much darker urine than normal for you? No Do you check your daily weight at home? Yes, Have you noticed a sudden gain in weight greater than three pounds in a day or three pounds in a week? No and Do you have new or worsening cough? No Do you have new or worsening wheezing? No Do you need to use your rescue (Albuterol) inhaler or nebulizer more often than normal? 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 Routed to: No Action Needed ALLEN Education Provided this Outreach: No Brooke Rao RN May 22, 2024 12:06 PM Allergies As of Date: 05/22/2024 Noted Allergy Reaction METFORMIN 07/27/2022 8 - GI Upset POISON RAHEL EXTRACT 12/24/2021 14 - Other: See Comments Comments: Severe rash [id number] REDUCTASE INHIBIT*09/05/2012 14 - Other: See Comments Comments: cholesterol medications cause liver pain Date Reviewed: 05/21/2024 Reviewed by: Charlette Gomez RN - Fully Assessed Reason for Visit: CDM [Other] Cmt: Community Monitoring Outreach Call Prescriptions as of 05/22/2024 - cyclobenzaprine (FLEXERIL) 5 mg tablet Take 1 tablet by mouth two times a day as needed for muscle spasm (Pain). - levothyroxine (SYNTHROID) 150 mcg tablet Take 1 tablet by mouth once daily. Take on empty stomach. For thyroid - sertraline (ZOLOFT) 100 mg tablet Take 1 tablet by mouth once daily. - lisinopril (ZESTRIL) 20 mg tablet Take 1 tablet by mouth two times a day. - amLODIPine (NORVASC) 10 mg tablet Take 1 tablet by mouth once daily. - propranolol (INDERAL) 20 mg tablet Take 20 mg by mouth two times a day. - acetaminophen (TYLENOL) 500 mg tablet Take 1,000 mg by mouth every 8 hours as needed for pain. - loratadine (CLARITIN) 10 mg tablet Take 10 mg by mouth once daily. As needed - primidone (MYSOLINE) 50 mg tablet Take 2 tablets by mouth daily at bedtime. - hydroCHLOROthiazide 25 mg tablet Take 1 tablet by mouth every afternoon. - blood sugar diagnostic (BLOOD GLUCOSE TEST) test strip Test blood sugar(s) 1 times daily. Dx: Type 2 DM - Uncontrolled E11.65 Insulin: No - albuterol HFA (VENTOLIN HFA) 90 mcg/actuation inhaler Inhale 2 Puffs as instructed every 4 hours as needed. - Lancets lancets Test blood sugar(s) 1 times daily. Dx: Type 2 DM - Uncontrolled E11.65 Insulin: No - Blood-Glucose Meter monitoring kit Glucose Meter of Choice - Kit - Use once daily Dx: Type 2 DM - Uncontrolled E11.65 - aspirin, enteric coated (ASPIRIN, ENTERIC COATED) 81 mg EC tablet Take 81 mg by mouth once daily. - NITROGLYCERIN BUCCAL Place between cheek and gum. 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.1] 10/02/2017 Depression [F32.A] 10/02/2017 02/20/2018 Non-rheumatic mitral regurgitation [I34.0] 10/03/2017 Liver cyst [K76.89] 10/03/2017 Tobacco use disorder [F17.200] Type 2 diabetes mellitus with stage 3a chronic * Hypertensive kidney disease with stage 3a chron*03/15/2021 Mild chronic obstructive pulmonary disease (HCC*01/28/2023 Body mass index (BMI) 40.0-44.9, adult (HCC) [Z*01/28/2023 Chronic bilateral low back pain with bilateral *03/14/2023 Statin intolerance [Z78.9] 09/12/2023 Obesity, Class II, BMI 35-39.9 [E66.812] 10/04/2023 Eye abnormalities [Q15.9] 10/04/2023 Drowsy [R40.0] 10/04/2023 Acute hip pain, left [M25.552] 11/02/2023 Encounter Status:Closed by BROOKE RAO on 05/22/24[facility] 05-21-2024 Instructions* Patient Instructions* Flex Carirllo DO - 05/21/2024 10:58 AM EDT You have a small 3.3cm infrarenal aortic aneurysm. We will continue to monitor this with yearly ultrasounds. Indication for repair would be 5.0cm for women. Recommend efforts at smoking cessation. The normal abdominal aortic diameter is 2cm. A 50% increase in size in any artery diameter is when its considered an aneursym, so 3cm for the abdominal aorta. The iliac arteries start at the end of the aorta at the level of the belly button and are also enlarged in 20-30% of cases. 15% of patients with have associated lower extremity (popliteal artery) aneurysms. Abdominal aortic aneursyms (AAA) occur by age 65 in 4% of men and 1% of women, they are associated with smoking, hypertension and emphysema. For each subsequent decade the risk of AAA essentially doubles. AAAs tend not to run in families, 85% are sporatic and 15% have a family history. Smoking cessation or avoidance is important. BP control to <140/90 for non diabetics and <130/80 for non diabetics. The average AAA growth is 4mm per year. We follow them based on diameter. [place] Small Aneurysm (UKSAT) Trial and the Aneurysm Detection and Management (OBED) Trial, both which showed no survival benefit to repair of abdominal aortic aneurysms (AAA) that were less than 5.5cm. Both showed that surveillance was safe and both showed that 60% of people eventually crossed over toopen repair. The risk of risk of rupture during surveillance was less than 1% for both studies; wasactually .6% in OBED and 0.8% in the UKSAT. Current medicare data shows risk of open AAA repair to be associated with 4% mortality. [facility] experience has been 2%. Endovascular AAA repair has 2% mortality nationwide in medicare population and 1% at [facility]. This shows that either open AAA repair or minimally invasive endovascular AAA repair has higher risk than surveillance for AAA. The goal of AAA repair is to prevent rupture and and we intervene when our risk is less than risk of the untreated AAA. This is 5.5cm for men. Both studies had minimal women in the study so we sometimes fix AAA at 5.0cm in women due to lack of better data to suggest it is also ok to observe. We screen people every year to follow their aneurysm with either CAT scans or ultrasound. documented in this [facility]24 NoteHNO ID: [id number] Author: FLEX CARRILLO DO Service: ? Author Type: Physician Type: Progress Notes Filed: 05/21/2024 11:02 Note Text: [facility] [place] DEPARTMENT OF VASCULAR SURGERY OUTPATIENT VISIT DATE May 21, 2024 OUTPATIENT VISIT TYPE CONSULTATION SERVICE DATE: 05/21/2024 SERVICE TIME: 10:47 AM PRIMARY CARE PHYSICIAN: Sherri Davalos MD REFERRING PROVIDER: Zeynep Schmidt [address] [place] [id number] Consult requested for an opinion regarding the evaluation and treatment of the above. My final impression and recommendations will be communicated back to the requesting physician by way of the shared medical record or letter via [place] mail. CHIEF COMPLAINT: AAA HISTORY OF PRESENT ILLNESS: Vascular consultation at the request of Dr. Zeynep Schmidt. A copy of this consultation note will be provided to the requesting physician by way of shared Medical record or letter to requesting physician via [place] mail. Ms. Barth is a 74 year old female who is seen today for AAA. Patient had a fall and developed left hip pain after the fall. Hip and lumbar xrays were performed and incidentally noted evidence of AAA. Aorta ultrasound was subsequently performed 04/22/24 to further evaluate and demonstrated 3.3cm infrarenal AAA, no evidence of aortoiliac stenosis. Denies abdominal pain or back pain. Did not previously know of aneurysm. No family history. Current smoker 1ppd. Has hx of CAD s/p PCI with stent placement 2013. On aspirin no statin due to liver enzymes. Denies chest pain or SOB. History of total abdominal hysterectomy and Laparoscopic cholecystectomy Has history thigh and hip pain with ambulation. Starts at about 25 feet. No rest pain or tissue loss. PAST MEDICAL HISTORY Diagnosis Date Asthma See PFT 12/2020 Cataracts, bilateral CKD (chronic kidney disease), stage III (HCC) Coronary artery disease s/p PTCA with ALEXIS to RCA 04/27, 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 Thompson Non-rheumatic mitral regurgitation 10/03/2017 Onychomycosis Shingles Statin intolerance Tobacco use disorder PAST SURGICAL HISTORY Procedure Laterality Date ARTHROSCOPY KNEE DIAGNOSTIC W/WO SYNOVIAL BX SPX Arthroscopy, knee right LAPAROSCOPY SURG CHOLECYSTECTOMY 10/18/2017 Cholecystectomy, lap LIG/TRNSXJ FLP TUBE ABDL/VAG APPR UNI/BI Tubal ligation PAST SURGICAL HISTORY OF 1994 kidney stone extraction: cut ureter STENT - CORONARY 2012 TONSILLECTOMY HX TOTAL ABDOMINAL HYSTERECT W/WO RMVL TUBE OVARY 1991 Hysterectomy, THANG, BSO URETERAL STENT 1994 2nd surgery SOCIAL HISTORY: Social History Tobacco Use Smoking status: Every Day Current packs/day: 1.00 Average packs/day: 1 pack/day for 55.1 years (55.1 ttl pk-yrs) Types: Cigarettes Start date: 08/14/1969 Smokeless tobacco: Never Vaping Use Vaping status: Never Used Substance Use Topics Alcohol use: No Comment: Rarely Drug use: No FAMILY HISTORY Problem Relation Age of Onset Heart Mother Diabetes Mother Hypertension Mother other (unknown) Father Hypertension Sister Thyroid Sister Asthma Sister Skin Cancer Other 1st cousin, unsure of type other (horseshoe kidney) Son MEDICATIONS: cyclobenzaprine (FLEXERIL) 5 mg tablet Take 1 tablet by mouth two times a day as needed for muscle spasm (Pain). levothyroxine (SYNTHROID) 150 mcg tablet Take 1 tablet by mouth once daily. Take on empty stomach. For thyroid sertraline (ZOLOFT) 100 mg tablet Take 1 tablet by mouth once daily. lisinopril (ZESTRIL) 20 mg tablet Take 1 tablet by mouth two times a day. amLODIPine (NORVASC) 10 mg tablet Take 1 tablet by mouth once daily. propranolol (INDERAL) 20 mg tablet Take 20 mg by mouth two times a day. acetaminophen (TYLENOL) 500 mg tablet Take 1,000 mg by mouth every 8 hours as needed for pain. loratadine (CLARITIN) 10 mg tablet Take 10 mg by mouth once daily. As needed primidone (MYSOLINE) 50 mg tablet Take 2 tablets by mouth daily at bedtime. hydroCHLOROthiazide 25 mg tablet Take 1 tablet by mouth every afternoon. blood sugar diagnostic (BLOOD GLUCOSE TEST) test strip Test blood sugar(s) 1 times daily. Dx: Type 2 DM - Uncontrolled E11.65 Insulin: No albuterol HFA (VENTOLIN HFA) 90 mcg/actuation inhaler Inhale 2 Puffs as instructed every 4 hours as needed. Blood-Glucose Meter monitoring kit Glucose Meter of Choice - Kit - Use once daily Dx: Type 2 DM - Uncontrolled E11.65 aspirin, enteric coated (ASPIRIN, ENTERIC COATED) 81 mg EC tablet Take 81 mg by mouth once daily. NITROGLYCERIN BUCCAL Place between cheek and gum. Lancets lancets Test blood sugar(s) 1 times daily. Dx: Type 2 DM - Uncontrolled E11.65 Insulin: No ALLERGIES: ALLERGIES Allergen Reactions Metformin GI Upset (more content not included)...[facility]10-08-2024 History of Present illness Narrative* Flex Carrillo DO - 05/21/2024 10:47 AM EDT Images from the original note were not included. [facility] [place] DEPARTMENT OF VASCULAR SURGERY OUTPATIENT VISIT DATE May 21, 2024 OUTPATIENT VISIT TYPE CONSULTATION SERVICE DATE: 05/21/2024 SERVICE TIME: 10:47 AM PRIMARY CARE PHYSICIAN: Sherri Davalos MD REFERRING PROVIDER: Zeynep Schmidt [id number] [facility] [id number] Consult requested for an opinion regarding the evaluation and treatment of the above. My final impression and recommendations will be communicated back to the requesting physician by way of the shared medical record or letter via [place] mail. CHIEF COMPLAINT: AAA HISTORY OF PRESENT ILLNESS: Vascular consultation at the request of Dr. Zeynep Shcmidt. A copy of this consultation note will be provided to the requesting physician by way of shared Medical record or letter to requesting physician via US mail. Ms. Barth is a 74 year old female who is seen today for AAA. Patient had a fall and developed left hip pain after the fall. Hip and lumbar xrays were performed and incidentally noted evidence of AAA. Aorta ultrasound was subsequently performed 04/22/24 to further evaluate and demonstrated 3.3cm infrarenal AAA, no evidence of aortoiliac stenosis. Denies abdominal pain or back pain. Did not previously know of aneurysm. No family history. Current smoker 1ppd. Has hx of CAD s/p PCI with stent placement 2013. On aspirin no statin due to liver enzymes. Denies chest pain or SOB. History of total abdominal hysterectomy and Laparoscopic cholecystectomy Has history thigh and hip pain with ambulation. Starts at about 25 feet. No rest pain or tissue loss. PAST MEDICAL HISTORY Diagnosis Date Asthma See PFT 12/2020 Cataracts, bilateral CKD (chronic kidney disease), stage III (HCC) Coronary artery disease s/p PTCA with ALEXIS to RCA 04/27, 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 Thompson Non-rheumatic mitral regurgitation 10/03/2017 Onychomycosis Shingles Statin intolerance Tobacco use disorder PAST SURGICAL HISTORY Procedure Laterality Date ARTHROSCOPY KNEE DIAGNOSTIC W/WO SYNOVIAL BX SPX Arthroscopy, knee right LAPAROSCOPY SURG CHOLECYSTECTOMY 10/18/2017 Cholecystectomy, lap LIG/TRNSXJ FLP TUBE ABDL/VAG APPR UNI/BI Tubal ligation PAST SURGICAL HISTORY OF 1994 kidney stone extraction: cut ureter STENT - CORONARY 2012 TONSILLECTOMY HX TOTAL ABDOMINAL HYSTERECT W/WO RMVL TUBE OVARY 1991 Hysterectomy, THANG, BSO URETERAL STENT 1994 2nd surgery SOCIAL HISTORY: Social History Tobacco Use Smoking status: Every Day Current packs/day: 1.00 Average packs/day: 1 pack/day for 55.1 years (55.1 ttl pk-yrs) Types: Cigarettes Start date: 08/14/1969 Smokeless tobacco: Never Vaping Use Vaping status: Never Used Substance Use Topics Alcohol use: No Comment: Rarely Drug use: No FAMILY HISTORY Problem Relation Age of Onset Heart Mother Diabetes Mother Hypertension Mother other (unknown) Father Hypertension Sister Thyroid Sister Asthma Sister Skin Cancer Other 1st cousin, unsure of type other (horseshoe kidney) Son MEDICATIONS: cyclobenzaprine (FLEXERIL) 5 mg tablet Take 1 tablet by mouth two times a day as needed for muscle spasm (Pain). levothyroxine (SYNTHROID) 150 mcg tablet Take 1 tablet by mouth once daily. Take on empty stomach. For thyroid sertraline (ZOLOFT) 100 mg tablet Take 1 tablet by mouth once daily. lisinopril (ZESTRIL) 20 mg tablet Take 1 tablet by mouth two times a day. amLODIPine (NORVASC) 10 mg tablet Take 1 tablet by mouth once daily. propranolol (INDERAL) 20 mg tablet Take 20 mg by mouth two times a day. acetaminophen (TYLENOL) 500 mg tablet Take 1,000 mg by mouth every 8 hours as needed for pain. loratadine (CLARITIN) 10 mg tablet Take 10 mg by mouth once daily. As needed primidone (MYSOLINE) 50 mg tablet Take 2 tablets by mouth daily at bedtime. hydroCHLOROthiazide 25 mg tablet Take 1 tablet by mouth every afternoon. blood sugar diagnostic (BLOOD GLUCOSE TEST) test strip Test blood sugar(s) 1 times daily. Dx: Type 2 DM - Uncontrolled Insulin: No albuterol HFA (VENTOLIN HFA) 90 mcg/actuation inhaler Inhale 2 Puffs as instructed every 4 hours asneeded. Blood-Glucose Meter monitoring kit Glucose Meter of Choice - Kit - Use once daily Dx: Type 2 DM - Uncontrolled aspirin, enteric coated (ASPIRIN, ENTERIC COATED) 81 mg EC tablet Take 81 mg by mouth once daily. NITROGLYCERIN BUCCAL Place between cheek and gum. Lancets lancets Test blood sugar(s) 1 times daily. Dx: Type 2 DM - Uncontrolled Insulin: No ALLERGIES: ALLERGIES Allergen Reactions Metformin GI Upset Poison Rahel Extract Other: See Comments Severe rash [id number] Red* Other: See Comments cholesterol medications cause liver pain PHYSICAL EXAM: VITALS: BP 138/79 Pulse 60 SpO2 98% General: Alert and oriented, No acute distress HEENT: EOMI, No carotid bruit Cardiovascular: Pulse regular. Lungs: Normal breath sounds, no wheezes. Abdomen: Soft, non-tender. Extremities: No edema, no chronic skin changes, no ulceration Neurological: Normal cognition and motor skills. No weakness or sensory deficit. Vascular: bilateral radial palpable, femoral palpable, , pedal pulses non- palp Diagnostic tests reviewed for today's visit: Most recent labs Most recent imaging IMPRESSION: Ms. Barth is a 74 year old female with small asymptomatic 3.3cm infrarenal AAA. PLAN and RECOMMENDATIONS: - Reviewed with pt AAA, as well as natural history and progression ,indications for repair, types of repair as well as r/b/a. Discussed with pt that the size the aneurysm currently is does not meet indication for repair which would be 5.0cm for women. - smoking cessation encouraged - will plan for repeat aorta ultrasound in 1 year - will obtain exercise PVRs in 1 year as well to rule out vascular claudication - follow up in 1 year I spent a total of 45 minutes on the date of the service which included preparing to see the patient, [id number] patient care, completing clinical documentation, obtaining and/or reviewing separately obtained history, performing a medically appropriate examination, counseling and educating the pat ient/family/caregiver, communicating with other HCPs (not separately reported), independently interpreting results (not separately reported) and communicating results to the patient/family/caregiver. SIGNATURE: Flex Carrillo DO PATIENT NAME: Zoraida Barth DATE: May 21, 2024 TIME: 10:47 AM [facility] Instructions* Patient Instructions* Dean Dubois MD - 05/15/2024 12:01 PM EDT Let's continue things the same today. documented in this encounterK[facility]10-02-2024 NoteHNO ID: [id number] Author: DEAN DUBOIS MD Service: ? Author Type: Physician Type: Progress Notes Filed: 05/28/2024 12:04 Note Text: FOLLOW UP NOTE Subjective Zoraida Barth is a 74 year old female who presents for follow up. CC: Tremor Summary of prior care: 12/2021 right-handed female with a history of DM, HTN, HLD, and CAD with stent who presents for evaluation of tremor. Her examination demonstrates right hand tremor most prominently with writing or in some positions. No concern for PD. 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 Explained these different diagnoses and treatment approach. She is already on low dose metoprolol, if able to change to propranolol might find more tremor benefit with it. History of depression and anxiety, would need to watch for mood changes if pushing dose of beta juan j. Will try primidone titrating to 100 mg QHS, discussed side effects and use. In future multiple other medications that could be tried. 11/2022 no change. 05/2023 no changes. HPI Current Issues - Continue to generally do well - Uncommonly will notice more tremor when she is doing something - Daily activities like eating and drinking are fine - No problems with primidone 100 QHS - Also on propranolol 20 BID for BP / heart / tremor - Breathing is good Current Outpatient Medications Medication Sig Dispense Refill cyclobenzaprine (FLEXERIL) 5 mg tablet Take 1 tablet by mouth two times a day as needed for muscle spasm (Pain). 60 tablet 0 levothyroxine (SYNTHROID) 150 mcg tablet Take 1 tablet by mouth once daily. Take on empty stomach. For thyroid 90 tablet 1 sertraline (ZOLOFT) 100 mg tablet Take 1 tablet by mouth once daily. 90 tablet 1 lisinopril (ZESTRIL) 20 mg tablet Take 1 tablet by mouth two times a day. 180 tablet 1 amLODIPine (NORVASC) 10 mg tablet Take 1 tablet by mouth once daily. 90 tablet 1 propranolol (INDERAL) 20 mg tablet Take 20 mg by mouth two times a day. acetaminophen (TYLENOL) 500 mg tablet Take 1,000 mg by mouth every 8 hours as needed for pain. loratadine (CLARITIN) 10 mg tablet Take 10 mg by mouth once daily. As needed primidone (MYSOLINE) 50 mg tablet Take 2 tablets by mouth daily at bedtime. 180 tablet 3 hydroCHLOROthiazide 25 mg tablet Take 1 tablet by mouth every afternoon. blood sugar diagnostic (BLOOD GLUCOSE TEST) test strip Test blood sugar(s) 1 times daily. Dx: Type 2 DM - Uncontrolled E11.65 Insulin: No 50 Strip 11 albuterol HFA (VENTOLIN HFA) 90 mcg/actuation inhaler Inhale 2 Puffs as instructed every 4 hours as needed. 1 Each 2 Lancets lancets Test blood sugar(s) 1 times daily. Dx: Type 2 DM - Uncontrolled E11.65 Insulin: No 100 Each 11 Blood-Glucose Meter monitoring kit Glucose Meter of Choice - Kit - Use once daily Dx: Type 2 DM - Uncontrolled E11.65 1 Each 0 aspirin, enteric coated (ASPIRIN, ENTERIC COATED) 81 mg EC tablet Take 81 mg by mouth once daily. NITROGLYCERIN BUCCAL Place between cheek and gum. No current facility-administered medications for this visit. REVIEW OF SYSTEMS Her ROS was positive for that mentioned in the HPI. Otherwise a 10-point ROS was completed and was negative. Objective OBJECTIVE 05/15/24 1151 BP: 144/74 BP Site: Left Arm BP Position: Sitting BP Cuff Size: Regular Adult Pulse: (!) 59 Weight: 96.9 kg (213 lb 8.3 oz) Height: 158.2 cm (5' 2.28") General: General Appearance: Well appearing, alert, in no acute distress, well-hydrated, well nourished. Head: Normocephalic Neck: Supple Heart: RRR Neurologic Exam: Mental Status: She is alert. She is fully oriented. Attention is intact. Memory is intact. Language shows normal comprehension and fluency. Affect is appropriate. Cranial Nerves: Extraocular movements show full and smooth pursuits. No nystagmus. Visual greenwood are full to confrontation. Facial activation is symmetric. Hearing is intact to conversation. There is no hypomimia. There is no hypophonia. There is no dysarthria. Tongue is midline. Palate elevates symmetrically. Shoulder shrug is normal. Motor: Muscle bulk is normal. Rapid alternating movements are normal. Muscle power is full. No rest tremor. No postural tremor today. Minimal kinetic tremor. Coordination: Finger to nose is smooth without ataxia. Gait/station: Walks with cane for support DATA REVIEW Actual films/image/tracing reviewed and summarized as follows: n/a Old records reviewed and summarized as follows: TSH 0.814 Assessment/Plan ASSESSMENT AND PLAN: Zoraida Barth is a 74 year old right-handed female with a history of DM, HTN, HLD, and CAD with stent who presents for evaluation of tremor. Her examination demonstrates right hand tremor most prominently with writing or in some positions. 1. Tremor - Continues to do well with primidone, continue - On propranolol low dose for other indications Follow-up: 12 months (more content not included)...[facility] 05-15-2024 History of Present illness Narrative* Dean Dubois MD - 05/15/2024 11:51 AM EDT FOLLOW UP NOTE Subjective Zoraida Barth is a 74 year old female who presents for follow up. CC: Tremor Summary of prior care: 12/2021 right-handed female with a history of DM, HTN, HLD, and CAD with stent who presents for evaluation of tremor. Her examination demonstrates right hand tremor most prominently with writing or in some positions. No concern for PD. 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 Explained these different diagnoses and treatment approach. She is already on low dose metoprolol, if able to change to propranolol might find more tremor benefit with it. History of depression and anxiety, would need to watch for mood changes if pushing dose of beta juan j. Will try primidone titrating to 100 mg QHS, discussed side effects and use. In future multiple other medications that could be tried. 11/2022 no change. 05/2023no changes. HPI Current Issues - Continue to generally do well - Uncommonly will notice more tremor when she is doing something - Daily activities like eating and drinking are fine - No problems with primidone 100 QHS - Also on propranolol 20 BID for BP / heart / tremor - Breathing is good Current Outpatient Medications Medication Sig Dispense Refill cyclobenzaprine (FLEXERIL) 5 mg tablet Take 1 tablet by mouth two times a day as needed for muscle spasm (Pain). 60 tablet 0 levothyroxine (SYNTHROID) 150 mcg tablet Take 1 tablet by mouth once daily. Take on empty stomach. For thyroid 90 tablet 1 sertraline (ZOLOFT) 100 mg tablet Take 1 tablet by mouth once daily. 90 tablet 1 lisinopril (ZESTRIL) 20 mg tablet Take 1 tablet by mouth two times a day. 180 tablet 1 amLODIPine (NORVASC) 10 mg tablet Take 1 tablet by mouth once daily. 90 tablet 1 propranolol (INDERAL) 20 mg tablet Take 20 mg by mouth two times a day. acetaminophen (TYLENOL) 500 mg tablet Take 1,000 mg by mouth every 8 hours as needed for pain. loratadine (CLARITIN) 10 mg tablet Take 10 mg by mouth once daily. As needed primidone (MYSOLINE) 50 mg tablet Take 2 tablets by mouth daily at bedtime. 180 tablet 3 hydroCHLOROthiazide 25 mg tablet Take 1 tablet by mouth every afternoon. blood sugar diagnostic (BLOOD GLUCOSE TEST) test strip Test blood sugar(s) 1 times daily. Dx: Type 2 DM - Uncontrolled E11.65 Insulin: No 50 Strip 11 albuterol HFA (VENTOLIN HFA) 90 mcg/actuation inhaler Inhale 2 Puffs as instructed every 4 hours asneeded. 1 Each 2 Lancets lancets Test blood sugar(s) 1 times daily. Dx: Type 2 DM - Uncontrolled E11.65 Insulin: No 100 Each 11 Blood-Glucose Meter monitoring kit Glucose Meter of Choice - Kit - Use once daily Dx: Type 2 DM - Uncontrolled E11.65 1 Each 0 aspirin, enteric coated (ASPIRIN, ENTERIC COATED) 81 mg EC tablet Take 81 mg by mouth once daily. NITROGLYCERIN BUCCAL Place between cheek and gum. No current facility-administered medications for this visit. REVIEW OF SYSTEMS Her ROS was positive for that mentioned in the HPI. Otherwise a 10-point ROS was completed and was negative. Objective OBJECTIVE 05/15/24 1151 BP: 144/74 BP Site: Left Arm BP Position: Sitting BP Cuff Size: Regular Adult Pulse: (!) 59 Weight: 96.9 kg (213 lb 8.3 oz) Height: 158.2 cm (5' 2.28") General: General Appearance: Well appearing, alert, in no acute distress, well-hydrated, well nourished. Head: Normocephalic Neck: Supple Heart: RRR Neurologic Exam: Mental Status: She is alert. She is fully oriented. Attention is intact. Memory is intact. Languageshows normal comprehension and fluency. Affect is appropriate. Cranial Nerves: Extraocular movements show full and smooth pursuits. No nystagmus. Visual greenwood are full to confrontation. Facial activation is symmetric. Hearing is intact to conversation. There isno hypomimia. There is no hypophonia. There is no dysarthria. Tongue is midline. Palate elevates sym metrically. Shoulder shrug is normal. Motor: Muscle bulk is normal. Rapid alternating movements are normal. Muscle power is full. No resttremor. No postural tremor today. Minimal kinetic tremor. Coordination: Finger to nose is smooth without ataxia. Gait/station: Walks with cane for support DATA REVIEW Actual films/image/tracing reviewed and summarized as follows: n/a Old records reviewed and summarized as follows: TSH 0.814 Assessment/Plan ASSESSMENT & PLAN: Zoraida Barth is a 74 year old right-handed female with a history of DM, HTN, HLD, and CAD with stent who presents for evaluation of tremor. Her examination demonstrates right hand tremor most prominently with writing or in some positions. 1. Tremor - Continues to do well with primidone, continue - On propranolol low dose for other indications Follow-up: 12 months Risks & Side Effects of Newly Prescribed Medication, Discussed with Patient: n/a Dean Dubois MD [facility] documented in this encounterK[facility]10-01-[facility]24 Instructions* Patient Instructions* Micheal Price DO - 05/14/2024 2:38 PM EDT Blood pressure looks good today Avoid nsaids as you can - tylenol first Avoid thirst , espeically in the garden Get labs done in the next week or two to reassess them Can check kidney ultrasound if the kidney function doesn't return to normal. documented in this encounterK[facility]10-01-2024 Nurse Note* Joy Dick RN - 05/14/2024 2:10 PM EDT BP - standardized method Pulse 1 BP #1: 125/80 Pulse #1: 60 beats/min 2 BP #2 : 132/83 Pulse #2 : 60 beats/min 3 BP #3 : 124/81 Pulse #3 : 58 beats/min Average Average BP: 127/81 Average Pulse: 59 beats/min Orthostatic vitals Supine Sitting Standing BP cuff location BP cuff location: Left upper arm BP cuff size BP cuff size: large adult Comments for BP values First BP (right) First BP (left) [facility] Nurse Note* Joy Dick RN - 05/14/2024 2:10 PM EDT BP - standardized method Pulse 1 BP #1: 125/80 Pulse #1: 60 beats/min 2 BP #2 : 132/83 Pulse #2 : 60 beats/min 3 BP #3 : 124/81 Pulse #3 : 58 beats/min Average Average BP: 127/81 Average Pulse: 59 beats/min Orthostatic vitals Supine Sitting Standing BP cuff location BP cuff location: Left upper arm BP cuff size BP cuff size: large adult Comments for BP values First BP (right) First BP (left) documented in this encounterK[facility]10-[facility] History of Present illness Narrative* Dee, Micheal, - 05/14/2024 2:00 PM EDT NEPHROLOGY CLINIC INITIAL VISIT PATIENT NAME: Zoraida Barth Consultation requested by Dr. Davalos for an opinion regarding CKD II. My final recommendations will be communicated back to the requesting physician by way of shared Medical record or letter to requesting physician via US mail. ASSESSMENT/PLAN 1.CKD III Cr baseline 1.1 now 1.4 on couple checks, ? Dehydration from woking in the garden (doesn't drink much out there) long hx of recurrent pyeolo and stones with horseshoe kidney many years ago -repeat urine studies, Cystatin C -stop smoking, home BP's -check kidney imaging if remains elevated -return to clinic 6 monts 2.HTN -lisinopril, amlodipine 10, hctz, -controlled in office. -emphasized the importance of control considering AAA, SUBJECTIVE chief complaint HPI: 74 year old hx of dm, htn, copd still smoking, cad s/p pci, AAA as per recent us of the abdomen, previously CKD IIIa with baseline Cr ~1.1, now on two checks this summer, Cr 1.4-1.5. mild hyperkalemia 5.3. 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 Home blood pressures _ Is obese with BMI of 38, lipid poorly controlled as of Aug 2023, Discovered to have horseshoe kidneys after recurrent pyelo and stones in her 30's-40's. Followed with urology back then and had lithotripsy (?) calcium based stone. This was all in [place]. Apparently had ureteral injury at that time with the lithotripsy ~30 years ago. Required stents. Hasn't had a stone in many years Was taking ibuprofen. RENAL HX A1c ~6.5 Duration DM >10 years Duration HTN Urine : bland Imaging: none Cr trend - apparently horseshoe kidney? Current Outpatient Medications Medication Instructions acetaminophen (TYLENOL) 1,000 mg, ORAL, EVERY 8 HOURS NEEDED albuterol HFA (VENTOLIN HFA) 90 mcg/actuation inhaler 2 Puffs, INHALATION, EVERY 4 HOURS NEEDED amLODIPine (NORVASC) 10 mg, ORAL, DAILY aspirin, enteric coated (ASPIRIN, ENTERIC COATED) 81 mg, ORAL, DAILY blood sugar diagnostic (BLOOD GLUCOSE TEST) test strip Test blood sugar(s) 1 times daily. Dx: Type 2 DM - Uncontrolled E11.65 Insulin: No Blood-Glucose Meter monitoring kit Glucose Meter of Choice - Kit - Use once daily Dx: Type 2 DM - Uncontrolled E11.65 cyclobenzaprine (FLEXERIL) 5 mg, ORAL, 2 TIMES DAILY NEEDED hydroCHLOROthiazide 25 mg tablet 1 tablet, ORAL, EVERY AFTERNOON Lancets lancets Test blood sugar(s) 1 times daily. Dx: Type 2 DM - Uncontrolled E11.65 Insulin: No levothyroxine (SYNTHROID) 150 mcg, ORAL, DAILY, Take on empty stomach. For thyroid lisinopril (ZESTRIL) 20 mg, ORAL, 2 TIMES DAILY loratadine (CLARITIN) 10 mg, ORAL, DAILY, As needed NITROGLYCERIN BUCCAL BUCCAL primidone (MYSOLINE) 100 mg, ORAL, AT BEDTIME propranolol (INDERAL) 20 mg, ORAL, 2 TIMES DAILY sertraline (ZOLOFT) 100 mg, ORAL, DAILY Social History Tobacco Use Smoking status: Every Day Current packs/day: 1.00 Average packs/day: 1 pack/day for 55.0 years (55.0 ttl pk-yrs) Types: Cigarettes Start date: 08/14/1969 Smokeless tobacco: Never Vaping Use Vaping status: Never Used Substance Use Topics Alcohol use: No Comment: Rarely Drug use: No FAMILY HISTORY Problem Relation Age of Onset Heart Mother Diabetes Mother Hypertension Mother other (unknown) Father Hypertension Sister Thyroid Sister Asthma Sister Skin Cancer Other 1st cousin, unsure of type other (horseshoe kidney) Son PAST SURGICAL HISTORY Procedure Laterality Date ARTHROSCOPY KNEE DIAGNOSTIC W/WO SYNOVIAL BX SPX Arthroscopy, knee right LAPAROSCOPY SURG CHOLECYSTECTOMY 10/18/2017 Cholecystectomy, lap LIG/TRNSXJ FLP TUBE ABDL/VAG APPR UNI/BI Tubal ligation PAST SURGICAL HISTORY OF 1994 kidney stone extraction: cut ureter STENT - CORONARY 2012 TONSILLECTOMY HX TOTAL ABDOMINAL HYSTERECT W/WO RMVL TUBE OVARY 1991 Hysterectomy, THANG, BSO URETERAL STENT 1994 2nd surgery OBJECTIVE PHYSICAL EXAM: BP - standardized method Pulse 1 BP #1: 125/80 Pulse #1: 60 beats/min 2 BP #2 : 132/83 Pulse #2 : 60 beats/min 3 BP #3 : 124/81 Pulse #3 : 58 beats/min Average Average BP: 127/81 Average Pulse: 59 beats/min Orthostatic vitals Supine Sitting Standing BP cuff location BP cuff location: Left upper arm BP cuff size BP cuff size: large adult Comments for BP values First BP (right) First BP (left) Intake/Output None GENERAL: no distress LUNGS: Lungs clear to auscultation, Good diaphragmatic excursion CARDIAC: Normal S1 and S2; no rubs, murmurs, or gallops EXTREMITIES:No edema DATA: Diagnostic tests reviewed for today's visit: Most recent labs and imaging results. CBC, Coags, BMP, Mg, Phos Liver Function, Amylase, & Lipase ABGs SIGNATURE: Micheal Price DO DATE: May 13, 2024 TIME: 9:28 AM During this patient visit I have spent approximately 60 minutes out of 60 in counseling regarding test results, coordinating care, and documenting and coordinating care. Medical Decision Making: Medical Decision Making Level: 1 - N/A Complexity: Low (1 stable chronic), moderate (2 stable chronic, 1 with exacerbation), High (severe exacerbation) Amount/Complexity of Data: limited (review prior notes & tests), moderate (review notes & tests or discussion MD/independent review/order test) Extensive (review notes & tests AND discussion MD/independent review/order test) Risk of complication :Moderate (Rx, procedure decision) High (intensive monitoring, immunosuppression, hospitalization,de-escalate care) documented in this encounterK[facility]24 NoteHNO ID: [id number] Author: MICHEAL PRICE DO Service: ? Author Type: Physician Type: Progress Notes Filed: 05/14/2024 14:47 Note Text: NEPHROLOGY CLINIC INITIAL VISIT PATIENT NAME: Zoraida Barth Consultation requested by Dr. Davalos for an opinion regarding CKD II. My final recommendations will be communicated back to the requesting physician by way of shared Medical record or letter to requesting physician via US mail. ASSESSMENT/PLAN 1.CKD III Cr baseline 1.1 now 1.4 on couple checks, ? Dehydration from woking in the garden (doesn't drink much out there) long hx of recurrent pyeolo and stones with horseshoe kidney many years ago -repeat urine studies, Cystatin C -stop smoking, home BP's -check kidney imaging if remains elevated -return to clinic 6 monts 2.HTN -lisinopril, amlodipine 10, hctz, -controlled in office. -emphasized the importance of control considering AAA, SUBJECTIVE chief complaint HPI: 74 year old hx of dm, htn, copd still smoking, cad s/p pci, AAA as per recent us of the abdomen, previously CKD IIIa with baseline Cr ~1.1, now on two checks this summer, Cr 1.4-1.5. mild hyperkalemia 5.3. 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 Home blood pressures _ Is obese with BMI of 38, lipid poorly controlled as of Aug 2023, Discovered to have horseshoe kidneys after recurrent pyelo and stones in her 30's-40's. Followed with urology back then and had lithotripsy (?) calcium based stone. This was all in [place]. Apparently had ureteral injury at that time with the lithotripsy ~30 years ago. Required stents. Hasn't had a stone in many years Was taking ibuprofen. RENAL HX A1c ~6.5 Duration DM >10 years Duration HTN Urine : bland Imaging: none Cr trend - apparently horseshoe kidney? Current Outpatient Medications Medication Instructions acetaminophen (TYLENOL) 1,000 mg, ORAL, EVERY 8 HOURS NEEDED albuterol HFA (VENTOLIN HFA) 90 mcg/actuation inhaler 2 Puffs, INHALATION, EVERY 4 HOURS NEEDED amLODIPine (NORVASC) 10 mg, ORAL, DAILY aspirin, enteric coated (ASPIRIN, ENTERIC COATED) 81 mg, ORAL, DAILY blood sugar diagnostic (BLOOD GLUCOSE TEST) test strip Test blood sugar(s) 1 times daily. Dx: Type 2 DM - Uncontrolled E11.65 Insulin: No Blood-Glucose Meter monitoring kit Glucose Meter of Choice - Kit - Use once daily Dx: Type 2 DM - Uncontrolled E11.65 cyclobenzaprine (FLEXERIL) 5 mg, ORAL, 2 TIMES DAILY NEEDED hydroCHLOROthiazide 25 mg tablet 1 tablet, ORAL, EVERY AFTERNOON Lancets lancets Test blood sugar(s) 1 times daily. Dx: Type 2 DM - Uncontrolled E11.65 Insulin: No levothyroxine (SYNTHROID) 150 mcg, ORAL, DAILY, Take on empty stomach. For thyroid lisinopril (ZESTRIL) 20 mg, ORAL, 2 TIMES DAILY loratadine (CLARITIN) 10 mg, ORAL, DAILY, As needed NITROGLYCERIN BUCCAL BUCCAL primidone (MYSOLINE) 100 mg, ORAL, AT BEDTIME propranolol (INDERAL) 20 mg, ORAL, 2 TIMES DAILY sertraline (ZOLOFT) 100 mg, ORAL, DAILY Social History Tobacco Use Smoking status: Every Day Current packs/day: 1.00 Average packs/day: 1 pack/day for 55.0 years (55.0 ttl pk-yrs) Types: Cigarettes Start date: 08/14/1969 Smokeless tobacco: Never Vaping Use Vaping status: Never Used Substance Use Topics Alcohol use: No Comment: Rarely Drug use: No FAMILY HISTORY Problem Relation Age of Onset Heart Mother Diabetes Mother Hypertension Mother other (unknown) Father Hypertension Sister Thyroid Sister Asthma Sister Skin Cancer Other 1st cousin, unsure of type other (horseshoe kidney) Son PAST SURGICAL HISTORY Procedure Laterality Date ARTHROSCOPY KNEE DIAGNOSTIC W/WO SYNOVIAL BX SPX Arthroscopy, knee right LAPAROSCOPY SURG CHOLECYSTECTOMY 10/18/2017 Cholecystectomy, lap LIG/TRNSXJ FLP TUBE ABDL/VAG APPR UNI/BI Tubal ligation PAST SURGICAL HISTORY OF 1994 kidney stone extraction: cut ureter STENT - CORONARY 2012 TONSILLECTOMY HX TOTAL ABDOMINAL HYSTERECT W/WO RMVL TUBE OVARY 1991 Hysterectomy, THANG, BSO URETERAL STENT 1994 2nd surgery OBJECTIVE PHYSICAL EXAM: BP - standardized method Pulse 1 BP #1: 125/80 Pulse #1: 60 beats/min 2 BP #2 : 132/83 Pulse #2 : 60 beats/min 3 BP #3 : 124/81 Pulse #3 : 58 beats/min Average Average BP: 127/81 Average Pulse: 59 beats/min Orthostatic vitals Supine Sitting Standing BP cuff location BP cuff location: Left upper arm BP cuff size BP cuff size: large adult Comments for BP values First BP (right) First BP (left) Intake/Output None GENERAL: no distress LUNGS: Lungs clear to auscultation, Good diaphragmatic excursion CARDIAC: Normal S1 and S2; no rubs, murmurs, or gallops EXTREMITIES:No edema DATA: Diagnostic tests reviewed for today's visit: Most recent labs and imaging results. CBC, Coags, BMP, Mg, Phos Liver Function, Amylase, AND Lipase ABGs SIGNATURE: Micheal Price, (more content not included)...[facility]09-12-2024 History of Present illness Narrative* Alejandra Ricks, [facility] - 04/25/2024 11:56 AM EDT Pt chart reviewed as part of population health initiative focused on statin use in patients with cardiovascular disease (CVD). Zoraida Barth is identified through data from [employer] (insurer) as a potential candidate for moderate or high intensity statin therapy with no prescriptions claims for moderate or high intensity therapy processed in this calendar year. Chart Review The following case components were reviewed for current or historic statin use: Confirmed CVD: Yes Current/Active med list includes a statin: No IF YES, Last order date and quantity: N/A Last pharmacy fill date: Per Epic: N/A, Per pharmacy phone call: N/A IF NO, reason identified (contraindication, intolerance, exclusion, etc.): statin intolerance; was previously on Repatha but insurance stopped paying for it; per chart review has refused to try alternative cholesterol medications; follows with [facility] braze operator, Dr. Thompson ALLERGIES Allergen Reactions Metformin GI Upset Poison Rahel Extract Other: See Comments Severe rash Shvmuzr-Krn-Rue Red* Other: See Comments cholesterol medications cause liver pain PAST MEDICAL HISTORY No date: Asthma Comment: See PFT 12/2020 No date: Cataracts, bilateral No date: CKD (chronic kidney disease), stage III (HCC) No date: Coronary artery disease Comment: s/p PTCA with [facility] to RCA 04/27, 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 Thompson 10/03/2017: Non-rheumatic mitral regurgitation No date: Onychomycosis No date: Shingles No date: Statin intolerance No date: Tobacco use disorder Cholesterol, Total (mg/dL) Date Value 09/06/2023 289 12/03/2020 273 HDL Cholesterol (mg/dL) Date Value 09/06/2023 37 12/03/2020 30 LDL Cholesterol (mg/dL) Date Value 09/06/2023 218 12/03/2020 206 LDL Cholesterol, Nonfasting (mg/dL) Date Value 07/20/2022 192 Triglyceride (mg/dL) Date Value 09/06/2023 170 12/03/2020 186 Patient contacted: Spoke with patient. States she experiences muscle cramps and pain in liver with numerous statins. Refuses to retry statin. Can't recall when she last saw braze operator, knows she has an appt scheduled at some time in the future. Also confirmed that she tried Repatha, said it didn't help her cholesterol and she still had a high cost of medication several years ago. Discussion on potential statin use: Agreed it would not be good to retry statin given her intolerance. She would benefit from additional CV risk reduction by quitting smoking, retrying a PCSK9i, or bempedoic acid. Discussed the importance of smoking cessation and medication for risk reduction. Outcome of review: - Requested that patient discuss retrying Repatha at next cards appt. Perhaps insurance will now cover medication. If Repatha is not an option, suggested she ask braze operator about Nexletol (bempedoic acid). She wrote down info and agreed to discuss at next visit. - Strongly encouraged smoking cessation. Offered PharmD referral for smoking cessation but she declined at this time. May consider it in the future. The Patient verbalizes understanding and denies further questions/concerns at this time. Alejandra Ricks RPh documented in this [facility]24 NoteHNO ID: [id number] Author: ALEJANDRA RICKS RPh Service: ? Author Type: Pharmacist Type: Progress Notes Filed: 04/25/2024 12:24 Note Text: Pt chart reviewed as part of population health initiative focused on statin use in patients with cardiovascular disease (CVD). Zoraida Barth is identified through data from [employer] (insurer) as a potential candidate for moderate or high intensity statin therapy with no prescriptions claims for moderate or high intensity therapy processed in this calendar year. Chart Review The following case components were reviewed for current or historic statin use: Confirmed CVD: Yes Current/Active med list includes a statin: No IF YES, Last order date and quantity: N/A Last pharmacy fill date: Per Epic: N/A, Per pharmacy phone call: N/A IF NO, reason identified (contraindication, intolerance, exclusion, etc.): statin intolerance; was previously on Repatha but insurance stopped paying for it; per chart review has refused to try alternative cholesterol medications; follows with [facility] braze operator, Dr. Thompson ALLERGIES Allergen Reactions Metformin GI Upset Poison Rahel Extract Other: See Comments Severe rash Zikspkd-Ctn-Jzm Red* Other: See Comments cholesterol medications cause liver pain PAST MEDICAL HISTORY No date: Asthma Comment: See PFT 12/2020 No date: Cataracts, bilateral No date: CKD (chronic kidney disease), stage III (HCC) No date: Coronary artery disease Comment: s/p PTCA with [facility] to RCA 04/27, 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 Thompson 10/03/2017: Non-rheumatic mitral regurgitation No date: Onychomycosis No date: Shingles No date: Statin intolerance No date: Tobacco use disorder Cholesterol, Total (mg/dL) Date Value 09/06/2023 289 12/03/2020 273 HDL Cholesterol (mg/dL) Date Value 09/06/2023 37 12/03/2020 30 LDL Cholesterol (mg/dL) Date Value 09/06/2023 218 12/03/2020 206 LDL Cholesterol, Nonfasting (mg/dL) Date Value 07/20/2022 192 Triglyceride (mg/dL) Date Value 09/06/2023 170 12/03/2020 186 Patient contacted: Spoke with patient. States she experiences muscle cramps and pain in liver with numerous statins. Refuses to retry statin. Can't recall when she last saw braze operator, knows she has an appt scheduled at some time in the future. Also confirmed that she tried Repatha, said it didn't help her cholesterol and she still had a high cost of medication several years ago. Discussion on potential statin use: Agreed it would not be good to retry statin given her intolerance. She would benefit from additional CV risk reduction by quitting smoking, retrying a PCSK9i, or bempedoic acid. Discussed the importance of smoking cessation and medication for risk reduction. Outcome of review: - Requested that patient discuss retrying Repatha at next cards appt. Perhaps insurance will now cover medication. If Repatha is not an option, suggested she ask braze operator about Nexletol (bempedoic acid). She wrote down info and agreed to discuss at next visit. - Strongly encouraged smoking cessation. Offered PharmD referral for smoking cessation but she declined at this time. May consider it in the future. The Patient verbalizes understanding and denies further questions/concerns at this time. Alejandra [facility]09-12-2024 NotePatient Outreach (PHMEWO) LARYZORAIDA Gurmeet ([id number]) 1950 F Date Time Provider Department 04/25/24 ALEJANDRA RICKS BART During your visit today, we recorded the following information about you: MillicentLeilani salasily [facility] 04/25/2024 12:24 PM Signed Pt chart reviewed as part of population health initiative focused on statin use in patients with cardiovascular disease (CVD). Zoraida Barth is identified through data from [employer] (insurer) as a potential candidate for moderate or high intensity statin therapy with no prescriptions claims for moderate or high intensity therapy processed in this calendar year. Chart Review The following case components were reviewed for current or historic statin use: Confirmed CVD: Yes Current/Active med list includes a statin: No IF YES, Last order date and quantity: N/A Last pharmacy fill date: Per Epic: N/A, Per pharmacy phone call: N/A IF NO, reason identified (contraindication, intolerance, exclusion, etc.): statin intolerance; was previously on Repatha but insurance stopped paying for it; per chart review has refused to try alternative cholesterol medications; follows with [facility] braze operator, Dr. Thompson ALLERGIES Allergen Reactions Metformin GI Upset Poison Rahel Extract Other: See Comments Severe rash Sovkgut-Grk-Yzn Red* Other: See Comments cholesterol medications cause liver pain PAST MEDICAL HISTORY No date: Asthma Comment: See PFT 12/2020 No date: Cataracts, bilateral No date: CKD (chronic kidney disease), stage III (HCC) No date: Coronary artery disease Comment: s/p PTCA with [facility] to RCA 04/27, [facility] cardiology No date: Depression No date: Diabetes type II (HCC) 10/02/2017: Gallstones 10/02/2017: Horseshoe kidney No date: Hyperlipidemia No date: Hypertension No date: Hypothyroidism 10/03/2017: Liver cyst 2014: Myocardial infarction ([facility]) Comment: Dr. Thompson 10/03/2017: Non-rheumatic mitral regurgitation No date: Onychomycosis No date: Shingles No date: Statin intolerance No date: Tobacco use disorder Cholesterol, Total (mg/dL) Date Value 09/06/2023 289 12/03/2020 273 HDL Cholesterol (mg/dL) Date Value 09/06/2023 37 12/03/2020 30 LDL Cholesterol (mg/dL) Date Value 09/06/2023 218 12/03/2020 206 LDL Cholesterol, Nonfasting (mg/dL) Date Value 07/20/2022 192 Triglyceride (mg/dL) Date Value 09/06/2023 170 12/03/2020 186 Patient contacted: Spoke with patient. States she experiences muscle cramps and pain in liver with numerous statins. Refuses to retry statin. Can't recall when she last saw braze operator, knows she has an appt scheduled at some time in the future. Also confirmed that she tried Repatha, said it didn't help her cholesterol and she still had a high cost of medication several years ago. Discussion on potential statin use: Agreed it would not be good to retry statin given her intolerance. She would benefit from additional CV risk reduction by quitting smoking, retrying a PCSK9i, or bempedoic acid. Discussed the importance of smoking cessation and medication for risk reduction. Outcome of review: - Requested that patient discuss retrying Repatha at next cards appt. Perhaps insurance will now cover medication. If Repatha is not an option, suggested she ask braze operator about Nexletol (bempedoic acid). She wrote down info and agreed to discuss at next visit. - Strongly encouraged smoking cessation. Offered PharmD referral for smoking cessation but she declined at this time. May consider it in the future. The Patient verbalizes understanding and denies further questions/concerns at this time. Alejandra Ricks [facility] Allergies As of Date: 04/25/2024 Noted Allergy Reaction METFORMIN 07/27/2022 8 - GI Upset POISON RAHEL EXTRACT 12/24/2021 14 - Other: See Comments Comments: Severe rash [id number] REDUCTASE INHIBIT*09/05/2012 14 - Other: See Comments Comments: cholesterol medications cause liver pain Date Reviewed: 04/19/2024 Reviewed by: Alix Jackson LPN - Fully Assessed Prescriptions as of 04/25/2024 - cyclobenzaprine (FLEXERIL) 5 mg tablet Take 1 tablet by mouth two times a day as needed for muscle spasm (Pain). - levothyroxine (SYNTHROID) 150 mcg tablet Take 1 tablet by mouth once daily. Take on empty stomach. For thyroid - sertraline (ZOLOFT) 100 mg tablet Take 1 tablet by mouth once daily. - lisinopril (ZESTRIL) 20 mg tablet Take 1 tablet by mouth two times a day. - amLODIPine (NORVASC) 10 mg tablet Take 1 tablet by mouth once daily. - propranolol (INDERAL) 20 mg tablet Take 20 mg by mouth two times a day. - acetaminophen (TYLENOL) 500 mg tablet Take 1,000 mg by mouth every 8 hours (more content not included)...[facility]09-11-2024 NoteHNO ID: [id number] Author: BROOKE RAO RN Service: ? Author Type: Registered Nurse Type: Progress Notes Filed: 04/24/2024 17:08 Note Text: CDM Telephonic Outreach Provider Action/FYI -patient reports she still has hip pain, has been utilizing stretches from previous hip issues, taking OTC medication. Patient declines wanting a follow up at this time with Sherri Davalos MD. -ckd, copd, dm, htn -11/04-g,f,a -05/07-s Contacted for: Routine Telephonic Outreach Contact made with patient: Yes Patient identified by name and date of . Discussed care with patient Are you experiencing any new or worsening symptoms you need to talk about today? Yes Based on waiter/waitress cocktail lounge, the following disposition is advised: No symptoms or symptoms present, not severe. Routed to: No Action Needed ALLEN Education Provided this Outreach: No Brooke Rao RN April 24, 2024 5:00 [facility]09-11-2024 History of Present illness Narrative* Brooke Rao RN - 04/24/2024 4:54 PM EDT CDM Telephonic Outreach Provider Action/FYI -patient reports she still has hip pain, has been utilizing stretches from previous hip issues, taking OTC medication. Patient declines wanting a follow up at this time with Sherri Davalos MD. -ckd, copd, dm, htn -11/04-g,f,a -05/07-s Contacted for: Routine Telephonic Outreach Contact made with patient: Yes Patient identified by name and date of . Discussed care with patient Are you experiencing any new or worsening symptoms you need to talk about today? Yes Based on waiter/waitress cocktail lounge, the following disposition is advised: No symptoms or symptoms present, not severe. Routed to: No Action Needed ALLEN Education Provided this Outreach: No Brooke Rao RN April 24, 2024 5:00 PM documented in this encounterK[facility]-11-2024 NotePatient Outreach (AMBCMG) ZORAIDA BARTH ([id number]) 1950 F Date Time Provider Department 04/24/24 BROOKE RAOG During your visit today, we recorded the following information about you: Brooke Rao RN 04/24/2024 5:08 PM Signed CDM Telephonic Outreach Provider Action/FYI -patient reports she still has hip pain, has been utilizing stretches from previous hip issues, taking OTC medication. Patient declines wanting a follow up at this time with Sherri Davalos MD. -ckd, copd, dm, htn -11/04-g,f,a -05/07-s Contacted for: Routine Telephonic Outreach Contact made with patient: Yes Patient identified by name and date of . Discussed care with patient Are you experiencing any new or worsening symptoms you need to talk about today? Yes Based on waiter/waitress cocktail lounge, the following disposition is advised: No symptoms or symptoms present, not severe. Routed to: No Action Needed ALLEN Education Provided this Outreach: No Brooke Rao RN April 24, 2024 5:00 PM Allergies As of Date: 04/24/2024 Noted Allergy Reaction METFORMIN 07/27/2022 8 - GI Upset POISON RAHEL EXTRACT 12/24/2021 14 - Other: See Comments Comments: Severe rash [id number] REDUCTASE INHIBIT*09/05/2012 14 - Other: See Comments Comments: cholesterol medications cause liver pain Date Reviewed: 04/19/2024 Reviewed by: Alix Jackson LPN - Fully Assessed Reason for Visit: CDM [Other] Cmt: Community Monitoring Outreach Call Prescriptions as of 04/24/2024 - cyclobenzaprine (FLEXERIL) 5 mg tablet Take 1 tablet by mouth two times a day as needed for muscle spasm (Pain). - levothyroxine (SYNTHROID) 150 mcg tablet Take 1 tablet by mouth once daily. Take on empty stomach. For thyroid - sertraline (ZOLOFT) 100 mg tablet Take 1 tablet by mouth once daily. - lisinopril (ZESTRIL) 20 mg tablet Take 1 tablet by mouth two times a day. - amLODIPine (NORVASC) 10 mg tablet Take 1 tablet by mouth once daily. - propranolol (INDERAL) 20 mg tablet Take 20 mg by mouth two times a day. - acetaminophen (TYLENOL) 500 mg tablet Take 1,000 mg by mouth every 8 hours as needed for pain. - loratadine (CLARITIN) 10 mg tablet Take 10 mg by mouth once daily. As needed - primidone (MYSOLINE) 50 mg tablet Take 2 tablets by mouth daily at bedtime. - hydroCHLOROthiazide 25 mg tablet Take 1 tablet by mouth every afternoon. - blood sugar diagnostic (BLOOD GLUCOSE TEST) test strip Test blood sugar(s) 1 times daily. Dx: Type 2 DM - Uncontrolled E11.65 Insulin: No - albuterol HFA (VENTOLIN HFA) 90 mcg/actuation inhaler Inhale 2 Puffs as instructed every 4 hours as needed. - Lancets lancets Test blood sugar(s) 1 times daily. Dx: Type 2 DM - Uncontrolled E11.65 Insulin: No - Blood-Glucose Meter monitoring kit Glucose Meter of Choice - Kit - Use once daily Dx: Type 2 DM - Uncontrolled E11.65 - aspirin, enteric coated (ASPIRIN, ENTERIC COATED) 81 mg EC tablet Take 81 mg by mouth once daily. - NITROGLYCERIN BUCCAL Place between cheek and gum. 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*04/20/2017 Coronary artery disease [I25.10] 08/22/2017 Prediabetes [R73.03] 07/27/2022 Stage 3a chronic kidney disease (HCC) [N18.31] Biliary colic [K80.50] 09/25/2017 Hyperlipidemia [E78.5] 10/02/2017 Gallstones [K80.20] 10/02/2017 Stented coronary artery [Z95.5] 10/02/2017 Horseshoe kidney [Q63.1] 10/02/2017 Depression [F32.A] 10/02/2017 02/20/2018 Non-rheumatic mitral regurgitation [I34.0] 10/03/2017 Liver cyst [K76.89] 10/03/2017 Tobacco use disorder [F17.200] Type 2 diabetes mellitus with stage 3a chronic * Hypertensive kidney disease with stage 3a chron*03/15/2021 Mild chronic obstructive pulmonary disease (HCC*01/28/2023 Body mass index (BMI) 40.0-44.9, adult (HCC) [Z*01/28/2023 Chronic bilateral low back pain with bilateral *03/14/2023 Statin intolerance [Z78.9] 09/12/2023 Obesity, Class II, BMI 35-39.9 [E66.9] 10/04/2023 Eye abnormalities [Q15.9] 10/04/2023 Drowsy [R40.0] 10/04/2023 Acute hip pain, left [M25.552] 11/02/2023 Encounter Status:Closed by BROOKE RAO on 04/24/24[facility] 04-23-2024 NoteHNO ID: [id number] Author: BROOKE RAO RN Service: ? Author Type: Registered Nurse Type: Progress Notes Filed: 04/23/2024 11:02 Note Text: CD Telephonic Outreach Provider Action/FYI Attempt #1 -ckd, copd, dm, htn -11/04-g,f,a -s Contacted for: Routine Telephonic Outreach Contact made with patient: No, left message. Brooke Rao RN April 23, 2024 11:01 [facility]09-10-2024 History of Present illness Narrative* Brooke Rao RN - 04/23/2024 10:56 AM EDT CD Telephonic Outreach Provider Action/FYI Attempt #1 -ckd, copd, dm, htn -11/04-g,f,a -05/07-s Contacted for: Routine Telephonic Outreach Contact made with patient: No, left message. Brooke Rao RN April 23, 2024 11:01 AM documented in this encounterK[facility]-10-2024 NotePatient Outreach ([facility]) ZORAIDA BARTH ([id number]) 1950 F Date Time Provider Department 04/23/24 BROOKE RAO During your visit today, we recorded the following information about you: Brooke Rao RN 04/23/2024 11:02 AM Signed CD Telephonic Outreach Provider Action/FYI Attempt #1 -ckd, copd, dm, htn -11/04-g,f,a -05/07-s Contacted for: Routine Telephonic Outreach Contact made with patient: No, left message. Brooke Rao RN April 23, 2024 11:01 AM Allergies As of Date: 04/23/2024 Noted Allergy Reaction METFORMIN 07/27/2022 8 - GI Upset POISON RAHEL EXTRACT 12/24/2021 14 - Other: See Comments Comments: Severe rash [id number] REDUCTASE INHIBIT*09/05/2012 14 - Other: See Comments Comments: cholesterol medications cause liver pain Date Reviewed: 04/19/2024 Reviewed by: Alix Jackson LPN - Fully Assessed Reason for Visit: CDM [Other] Cmt: Community Monitoring Outreach Call Prescriptions as of 04/23/2024 - cyclobenzaprine (FLEXERIL) 5 mg tablet Take 1 tablet by mouth two times a day as needed for muscle spasm (Pain). - levothyroxine (SYNTHROID) 150 mcg tablet Take 1 tablet by mouth once daily. Take on empty stomach. For thyroid - sertraline (ZOLOFT) 100 mg tablet Take 1 tablet by mouth once daily. - lisinopril (ZESTRIL) 20 mg tablet Take 1 tablet by mouth two times a day. - amLODIPine (NORVASC) 10 mg tablet Take 1 tablet by mouth once daily. - propranolol (INDERAL) 20 mg tablet Take 20 mg by mouth two times a day. - acetaminophen (TYLENOL) 500 mg tablet Take 1,000 mg by mouth every 8 hours as needed for pain. - loratadine (CLARITIN) 10 mg tablet Take 10 mg by mouth once daily. As needed - primidone (MYSOLINE) 50 mg tablet Take 2 tablets by mouth daily at bedtime. - hydroCHLOROthiazide 25 mg tablet Take 1 tablet by mouth every afternoon. - blood sugar diagnostic (BLOOD GLUCOSE TEST) test strip Test blood sugar(s) 1 times daily. Dx: Type 2 DM - Uncontrolled E1165 Insulin: No - albuterol HFA (VENTOLIN HFA) 90 mcg/actuation inhaler Inhale 2 Puffs as instructed every 4 hours as needed. - Lancets lancets Test blood sugar(s) 1 times daily. Dx: Type 2 DM - Uncontrolled E11.65 Insulin: No - Blood-Glucose Meter monitoring kit Glucose Meter of Choice - Kit - Use once daily Dx: Type 2 DM - Uncontrolled E11.65 - aspirin, enteric coated (ASPIRIN, ENTERIC COATED) 81 mg EC tablet Take 81 mg by mouth once daily. - NITROGLYCERIN BUCCAL Place between cheek and gum. 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*04/20/2017 Coronary artery disease [I25.10] 08/22/2017 Prediabetes [R73.03] 07/27/2022 Stage 3a chronic kidney disease (HCC) [N18.31] Biliary colic [K80.50] 09/25/2017 Hyperlipidemia [E78.5] 10/02/2017 Gallstones [K80.20] 10/02/2017 Stented coronary artery [Z95.5] 10/02/2017 Horseshoe kidney [Q63.1] 10/02/2017 Depression [F32.A] 10/02/2017 02/20/2018 Non-rheumatic mitral regurgitation [I34.0] 10/03/2017 Liver cyst [K76.89] 10/03/2017 Tobacco use disorder [F17.200] Type 2 diabetes mellitus with stage 3a chronic * Hypertensive kidney disease with stage 3a chron*03/15/2021 Mild chronic obstructive pulmonary disease (HCC*01/28/2023 Body mass index (BMI) 40.0-44.9, adult (HCC) [Z*01/28/2023 Chronic bilateral low back pain with bilateral *03/14/2023 Statin intolerance [Z78.9] 09/12/2023 Obesity, Class II, BMI 35-39.9 [E66.9] 10/04/2023 Eye abnormalities [Q15.9] 10/04/2023 Drowsy [R40.0] 10/04/2023 Acute hip pain, left [M25.552] 11/02/2023 Encounter Status:Closed by BROOKE RAO on 04/23/24[facility] 04-22-2024 Telephone encounter Note* Telephone Encounter - Janice Buckner - 04/22/2024 2:01 PM EDT Contacted patient, scheduled in [place] with [facility] Work Phone: 1(228) 271-555709-09-2024 Miscellaneous Notes* Telephone Encounter - Janice Buckner - 04/22/2024 2:01 PM EDT Contacted patient, scheduled in [place] with Vascular * Telephone Encounter - Alix Jackson LPN - 04/22/2024 10:29 AM EDT Patient telephoned and notified. Please reach out to patient and schedule with vascular medicine. Alix Jackson LPN * Telephone Encounter - Zeynep Schmidt APRN.CNP - 04/22/2024 10:19 AM EDT US shows abdominal aortic aneurysm. Needs to see vascular medicine. Consult placed, please assist in scheduling. Zeynep Schmidt APRN.VICKIE * Telephone Encounter - Alix Jackson LPN - 04/19/2024 2:51 PM EDT Patient telephoned and notified. Please assist with scheduling US. Alix Jackson LPN * Telephone Encounter - Zeynep Schmidt APRN.CNP - 04/19/2024 1:31 PM EDT Lumbar xray shows no acute findings however they did see an abdominal aortic aneurysm which needs furthering imaging for measurement by US. I have placed order for this, please assist in scheduling. Her hip xray's were normal Zeynep Schmidt APRN.CNP * Telephone Encounter - Fawad Manzano - 03/22/2024 12:42 PM EDTSummary: pateint questions Patient had questions about blood work/ lab work that was supposed to be placed. Please advise and contact patient via phone documented in this encounterK[facility]09-09-2024 Telephone encounter Note * Telephone Encounter - Alix Jackson LPN - 04/22/2024 10:29 AM EDT Patient telephoned and notified. Please reach out to patient and schedule with vascular medicine. Alix Jackson LPN [facility]09-09-2024 Telephone encounter Note* Telephone Encounter - Zeynep Schmidt APRN.CNP - 04/22/2024 10:19 AM EDT US shows abdominal aortic aneurysm. Needs to see vascular medicine. Consult placed, please assist in scheduling. Zeynep Schmidt APRN.CNP [facility]09-09-2024 History of Present illness Narrative* Fatuma Gipson RDMS - 04/22/2024 7:00 AM EDT Radiology Service Progress Note PATIENT NAME: Zoraida Barth DATE OF SERVICE: April 22, 2024 TIME: 9:11 AM PATIENT IDENTITY VERIFICATION COMPLETED USING TWO (2) IDENTIFIERS: Name and Date of confirmedby patient verbally. FALL SCREENING: Has the patient had 2 falls in the last year or 1 fall with injury or currently using an Ambulatory Assistive Device (Walker, Cane, Wheelchair, Crutches, etc.)? No PATIENT GENDER DATA: Female. status: : No status: NO. PATIENT RELEVANT IMPLANT DATA REVIEWED: Not Applicable PATIENT PRESENTS WITH AN IMPLANTABLE OR ATTACHED INFORMATION DIRECTOR: No RADIOLOGY DEPARTMENT: Ultrasound PERIPHERAL IV DATA: Not applicable SIGNED BY: Fatuma Gipson RDMS RVChrissy April 22, 2024 9:11 AM documented in this encounterK[facility]24 NoteHNO ID: [id number] Author: FATUMA GIPSON RDMS Service: ? Author Type: Dressing Machine Operator Type: Progress Notes Filed: 04/22/2024 09:11 Note Text: Radiology Service Progress Note PATIENT NAME: Zoraida Barth DATE OF SERVICE: April 22, 2024 TIME: 9:11 AM PATIENT IDENTITY VERIFICATION COMPLETED USING TWO (2) IDENTIFIERS: Name and Date of confirmed by patient verbally. FALL SCREENING: Has the patient had 2 falls in the last year or 1 fall with injury or currently using an Ambulatory Assistive Device (Walker, Cane, Wheelchair, Crutches, etc.)? No PATIENT GENDER DATA: Female. status: : No status: NO. PATIENT RELEVANT IMPLANT DATA REVIEWED: Not Applicable PATIENT PRESENTS WITH AN IMPLANTABLE OR ATTACHED INFORMATION DIRECTOR: No RADIOLOGY DEPARTMENT: Ultrasound PERIPHERAL IV DATA: Not applicable SIGNED BY: Fatuma Gipson RDMS RVT April 22, 2024 9:11 [facility]09-06-2024 Telephone encounter Note* Telephone Encounter - Alix Jackson LPN - 04/19/2024 2:51 PM EDT Patient telephoned and notified. Please assist with scheduling US. Alix Jackson LPN [facility]09-06-2024 Telephone encounter Note* Telephone Encounter - Zeynep Schmidt APRN.ROLL COATING MACHINE OPERATOR - 04/19/2024 1:31 PM EDT Lumbar xray shows no acute findings however they did see an abdominal aortic aneurysm which needs furthering imaging for measurement by US. I have placed order for this, please assist in scheduling. Her hip xray's were normal Zeynep Schmidt APRN.CNP [facility]09-06-2024 History of Present illness Narrative* Danni Norman RT(Jacey) - 04/19/2024 11:50 AM EDT Radiology Service Progress Note PATIENT NAME: Zoraida Barth DATE OF SERVICE: April 19, 2024 TIME: 12:06 PM PATIENT IDENTITY VERIFICATION COMPLETED USING TWO (2) IDENTIFIERS: Name and Date of confirmedby patient verbally. FALL SCREENING: Has the patient had 2 falls in the last year or 1 fall with injury or currently using an Ambulatory Assistive Device (Walker, Cane, Wheelchair, Crutches, etc.)? Yes, Patient High Riskfor Falls What interventions were put in place to prevent falls during this visit? Offered Assistance with Transfers/Clothing and Instructed Patient to Remain Seated (Not on Exam Table) Until Exam PATIENT GENDER DATA: Female. status: : No status: NO. PATIENT RELEVANT IMPLANT DATA REVIEWED: Not Applicable PATIENT PRESENTS WITH AN IMPLANTABLE OR ATTACHED INFORMATION DIRECTOR: No RADIOLOGY DEPARTMENT: General X-ray: Exam(s) Completed: Spine X-Ray(s): Lumbar AP / LAT / L5-S1 Pelvis X-Ray: Pelvis with Hip Bilateral PERIPHERAL IV DATA: Not applicable SIGNED BY: RT Grace(Jacey) April 19, 2024 12:06 PM documented in this encounterKettering [facility]09-06-2024 NoteHNO ID: [id number] Author: DANNI NORMAN RT(R) Service: Radiology Author Type: Technologist Type: Progress Notes Filed: 04/19/2024 12:27 Note Text: Radiology Service Progress Note PATIENT NAME: Zoraida Barth DATE OF SERVICE: April 19, 2024 TIME: 12:06 PM PATIENT IDENTITY VERIFICATION COMPLETED USING TWO (2) IDENTIFIERS: Name and Date of confirmed by patient verbally. FALL SCREENING: Has the patient had 2 falls in the last year or 1 fall with injury or currently using an Ambulatory Assistive Device (Walker, Cane, Wheelchair, Crutches, etc.)? Yes, Patient High Risk for Falls What interventions were put in place to prevent falls during this visit? Offered Assistance with Transfers/Clothing and Instructed Patient to Remain Seated (Not on Exam Table) Until Exam PATIENT GENDER DATA: Female. status: : No status: NO. PATIENT RELEVANT IMPLANT DATA REVIEWED: Not Applicable PATIENT PRESENTS WITH AN IMPLANTABLE OR ATTACHED INFORMATION DIRECTOR: No RADIOLOGY DEPARTMENT: General X-ray: Exam(s) Completed: Spine X-Ray(s): Lumbar AP / LAT / L5-S1 Pelvis X-Ray: Pelvis with Hip Bilateral PERIPHERAL IV DATA: Not applicable SIGNED BY: RT Grace(R) April 19, 2024 12:06 [facility]09-06-2024 NoteHNO ID: [id number] Author: ZEYNEP SCHMIDT APRN.ROLL COATING MACHINE OPERATOR Service: ? Author Type: Nurse Practitioner Type: Progress Notes Filed: 04/19/2024 12:37 Note Text: 04/19/2024 Patient presents with: Fall: 03/31 is having left hip pain SUBJECTIVE: This is a 74 year old that is here today for Above Complaints. Fell on 03/31/2024. A wagon she was pulling hit the back of her leg and she fell down. Landed on her bottom on pavement. Reports she was able to get back up on he own. No immediate pain. Started experiencing pain a day or so after. Pain located low back which radiates to both hips. Reports pain is sharp at times otherwise a dull constant ache. Aggravated by sitting, standing and laying. Has been doing stretches she learned from PT, taking Acetaminophen and Flexeril for pain and she is having some improvement. Denies saddle anaesthesia, Extremity numbness, tingling, weakness, urinary/bowel incontinence or inability. Reports she does have a hx of chronic low back pain. Reports she need a letter for the health department stating she needs assistaiance with her care due to her son moved a trailer on her property about a year ago. She reports he moved there to help with maintenance of her property inside and out. He does yard work, cleans and cooks for her. Takes her to appointments if need be. She reports she would be unable to live in her home due to her chronic back pain which limits her mobility. Uses a cane to ambulate. PAST MEDICAL HISTORY No date: Asthma Comment: See PFT 12/2020 No date: Cataracts, bilateral No date: CKD (chronic kidney disease), stage III ([facility]) No date: Coronary artery disease Comment: s/p PTCA with ALEX[facility] to RCA 04/27, [facility] cardiology No date: Depression No date: Diabetes type II ([facility]) 10/02/2017: Gallstones 10/02/2017: Horseshoe kidney No date: Hyperlipidemia No date: Hypertension No date: Hypothyroidism 10/03/2017: Liver cyst 2013: Myocardial infarction ([facility]) Comment: Dr. Thompson 10/03/2017: Non-rheumatic mitral regurgitation No date: Onychomycosis No date: Shingles No date: Statin intolerance No date: Tobacco use disorder ALLERGIES Metformin, Poison Rahel Extract, and Axyakgn-Wym-Tln Reductase Inhibitors MEDICATIONS Current Outpatient Medications Medication Sig cyclobenzaprine (FLEXERIL) 5 mg tablet Take 1 tablet by mouth two times a day as needed for muscle spasm (Pain). levothyroxine (SYNTHROID) 150 mcg tablet Take 1 tablet by mouth once daily. Take on empty stomach. For thyroid sertraline (ZOLOFT) 100 mg tablet Take 1 tablet by mouth once daily. lisinopril (ZESTRIL) 20 mg tablet Take 1 tablet by mouth two times a day. amLODIPine (NORVASC) 10 mg tablet Take 1 tablet by mouth once daily. propranolol (INDERAL) 20 mg tablet Take 20 mg by mouth two times a day. acetaminophen (TYLENOL) 500 mg tablet Take 1,000 mg by mouth every 8 hours as needed for pain. loratadine (CLARITIN) 10 mg tablet Take 10 mg by mouth once daily. As needed primidone (MYSOLINE) 50 mg tablet Take 2 tablets by mouth daily at bedtime. hydroCHLOROthiazide 25 mg tablet Take 1 tablet by mouth every afternoon. blood sugar diagnostic (BLOOD GLUCOSE TEST) test strip Test blood sugar(s) 1 times daily. Dx: Type 2 DM - Uncontrolled E11.65 Insulin: No albuterol HFA (VENTOLIN HFA) 90 mcg/actuation inhaler Inhale 2 Puffs as instructed every 4 hours as needed. Lancets lancets Test blood sugar(s) 1 times daily. Dx: Type 2 DM - Uncontrolled E11.65 Insulin: No Blood-Glucose Meter monitoring kit Glucose Meter of Choice - Kit - Use once daily Dx: Type 2 DM - Uncontrolled E11.65 aspirin, enteric coated (ASPIRIN, ENTERIC COATED) 81 mg EC tablet Take 81 mg by mouth once daily. NITROGLYCERIN BUCCAL Place between cheek and gum. No current facility-administered medications for this visit. Medications and allergies reviewed by this provider. SOCIAL HISTORY Social History Tobacco Use Smoking status: Every Day Current packs/day: 1.00 Average packs/day: 1 pack/day for 55.0 years (55.0 ttl pk-yrs) Types: Cigarettes Start date: 08/14/1969 Smokeless tobacco: Never Vaping Use Vaping status: Never Used Substance Use Topics Alcohol use: No Comment: Rarely Drug use: No REVIEW OF SYSTEMS All other reviewed and negative other than HPI. OBJECTIVE: BP 144/88 Pulse 61 Resp 16 Wt 95.9 kg (211 lb 6.7 oz) SpO2 98% BMI 38.05 kg/m? . Vital signs reviewed by this provider. APPEARANCE Well appearing, alert, in no acute distress, well-hydrated, well nourished. EYES PERRLA, conjunctiva and sclera normal. BACK: good flexion and extension, + SLR bilaterally Mild TTP across lower lumbar spine . EXTREMITIES Extremities normal, No deformities, No skin discoloration, and No edema NEURO Reflexes symmetrical, No involuntary motions., and negative findings: muscle tone normal, muscle strength normal, reflexes normal and symmetric, plantar response downgoing bilaterally, an (more content not included)... [facility]09-06-2024 History of Present illness Narrative* PodlogZeynep aly APRN.ROLL COATING MACHINE OPERATOR - 04/19/2024 11:30 AM EDT 04/19/2024 Patient presents with: Fall: 03/31 is having left hip pain SUBJECTIVE: This is a 74 year old that is here today for Above Complaints. Fell on 03/31/2024. A wagon she was pulling hit the back of her leg and she fell down. Landed on her bottom on pavement. Reports she was able to get back up on he own. No immediate pain. Started experiencing pain a day or so after. Pain located low back which radiates to both hips. Reports pain is sharp at times otherwise a dull constant ache. Aggravated by sitting, standing and laying. Has been doing stretches she learned from PT, taking Acetaminophen and Flexeril for pain and she is having some improvement. Denies saddle anaesthesia, Extremity numbness, tingling, weakness, urinary/bowel incontinence or inability. Reports she does have a hx of chronic low back pain. Reports she need a letter for the health department stating she needs assistaiance with her care due to her son moved a trailer on her property about a year ago. She reports he moved there to help with maintenance of her property inside and out. He does yard work, cleans and cooks for her. Takes her to appointments if need be. She reports she would be unable to live in her home due to her chronicback pain which limits her mobility. Uses a cane to ambulate. PAST MEDICAL HISTORY No date: Asthma Comment: See PFT 12/2020 No date: Cataracts, bilateral No date: CKD (chronic kidney disease), stage III ([facility]) No date: Coronary artery disease Comment: s/p PTCA with [facility] to RCA 04/27, [facility] cardiology No date: Depression No date: Diabetes type II ([facility]) 10/02/2017: Gallstones 10/02/2017: Horseshoe kidney No date: Hyperlipidemia No date: Hypertension No date: Hypothyroidism 10/03/2017: Liver cyst 2013: Myocardial infarction ([facility]) Comment: Dr. Thompson 10/03/2017: Non-rheumatic mitral regurgitation No date: Onychomycosis No date: Shingles No date: Statin intolerance No date: Tobacco use disorder ALLERGIES Metformin, Poison Rahel Extract, and Fhjlsxf-Sqa-Ikl Reductase Inhibitors MEDICATIONS Current Outpatient Medications Medication Sig cyclobenzaprine (FLEXERIL) 5 mg tablet Take 1 tablet by mouth two times a day as needed for muscle spasm (Pain). levothyroxine (SYNTHROID) 150 mcg tablet Take 1 tablet by mouth once daily. Take on empty stomach. For thyroid sertraline (ZOLOFT) 100 mg tablet Take 1 tablet by mouth once daily. lisinopril (ZESTRIL) 20 mg tablet Take 1 tablet by mouth two times a day. amLODIPine (NORVASC) 10 mg tablet Take 1 tablet by mouth once daily. propranolol (INDERAL) 20 mg tablet Take 20 mg by mouth two times a day. acetaminophen (TYLENOL) 500 mg tablet Take 1,000 mg by mouth every 8 hours as needed for pain. loratadine (CLARITIN) 10 mg tablet Take 10 mg by mouth once daily. As needed primidone (MYSOLINE) 50 mg tablet Take 2 tablets by mouth daily at bedtime. hydroCHLOROthiazide 25 mg tablet Take 1 tablet by mouth every afternoon. blood sugar diagnostic (BLOOD GLUCOSE TEST) test strip Test blood sugar(s) 1 times daily. Dx: Type 2 DM - Uncontrolled E11.65 Insulin: No albuterol HFA (VENTOLIN HFA) 90 mcg/actuation inhaler Inhale 2 Puffs as instructed every 4 hours asneeded. Lancets lancets Test blood sugar(s) 1 times daily. Dx: Type 2 DM - Uncontrolled E11.65 Insulin: No Blood-Glucose Meter monitoring kit Glucose Meter of Choice - Kit - Use once daily Dx: Type 2 DM - Uncontrolled E11.65 aspirin, enteric coated (ASPIRIN, ENTERIC COATED) 81 mg EC tablet Take 81 mg by mouth once daily. NITROGLYCERIN BUCCAL Place between cheek and gum. No current facility-administered medications for this visit. Medications and allergies reviewed by this provider. SOCIAL HISTORY Social History Tobacco Use Smoking status: Every Day Current packs/day: 1.00 Average packs/day: 1 pack/day for 55.0 years (55.0 ttl pk-yrs) Types: Cigarettes Start date: 08/14/1969 Smokeless tobacco: Never Vaping Use Vaping status: Never Used Substance Use Topics Alcohol use: No Comment: Rarely Drug use: No REVIEW OF SYSTEMS All other reviewed and negative other than HPI. OBJECTIVE: BP 144/88 Pulse 61 Resp 16 Wt 95.9 kg (211 lb 6.7 oz) SpO2 98% BMI 38.05 kg/m . Vital signs reviewed by this provider. APPEARANCE Well appearing, alert, in no acute distress, well-hydrated, well nourished. EYES PERRLA, conjunctiva and sclera normal. BACK: good flexion and extension, + SLR bilaterally Mild TTP across lower lumbar spine . EXTREMITIES Extremities normal, No deformities, No skin discoloration, and No edema NEURO Reflexes symmetrical, No involuntary motions., and negative findings: muscle tone normal, muscle strength normal, reflexes normal and symmetric, plantar response downgoing bilaterally, analgic gait SKIN Skin color, texture, turgor normal, no suspicious rashes or lesions to exposed skin HIPS: No obvious deformity, ecchymosis, erythema or swelling. FROM with pain to back with external rotation. No clunking or crepitus Anxiety Screening Never done Lung Cancer Screening Never done Mammogram Screening due on 08/13/2021 Advance Directive Discussion due on 08/14/2023 Influenza Vaccine(1) due on 04/14/2024 Colorectal Cancer Screening due on 06/24/2024 DTaP,Tdap,Td Vaccine(1 - Tdap) due on 09/12/2024 RSV Vaccine(1 - 1-dose 60+ series) due on 09/12/2024 Shingrix Vaccine(1 of 2) due on 09/12/2024 Alpha-1 Antitrypsin Deficiency Screening due on 12/11/2024 LDL Cholesterol due on 09/06/2024 HbA1C due on 09/06/2024 Urine Albumin:Creatinine Ratio due on 03/06/2025 Diabetic Foot Exam due on 03/18/2025 Annual PCP Team Chronic Disease Visit due on 03/18/2025 Serum Creatinine due on 03/18/2025 Hemoglobin/Hematocrit due on 03/18/2025 BP Controlled (<130/80) due on 03/18/2025 Dilated Retinal Exam due on 04/02/2025 Bone Density Screening Completed Spirometry Completed Hepatitis C Screening Completed Covid-19 Vaccine Completed Pneumococcal Vaccine: 65+ Completed ASSESSMENT/PLAN: 1. Fall, initial encounter - ICD9: E888.9, ICD10: W19.XXXA (primary diagnosis) - offered PT, patient declines at this time - continue to use cane for ambulation - fall prevention discussed 2. Bilateral hip pain - ICD9: 719.45, ICD10: M25.551, M25.552 - no red flag symptoms or exam findings - red flag symptoms discussed, verbalizes understanding - may continue stretches and OTC pain relievers as directed on packaging - XR HIP BILATERAL 5V PEL/AP/LAT EACH HIP - follow-up if symptoms fail to improve 3. Lumbar back pain - ICD9: 724.2, ICD10: M54.50 - plan as in #2 - XR LUMBAR GENERAL 3V AP/LAT/L5-S1 Zeynep Schmidt APRN.ROLL COATING MACHINE OPERATOR Prescription instructions reviewed with patient as applicable. Patient advised if symptoms do not improve or if symptoms worsen sooner, to contact their primary care physician. Potential red flag symptoms discussed with the patient. Reviewed appropriate action plan to take if red flag symptoms occur. Patient agreeable to treatment plan. Medical Decision Making: Problems: Moderate: New problem with uncertain prognosis Data: Unique test(s) ordered: 2 Risk: Moderate: Moderate risk from testing/treatment Medical Decision Making Level: 4 - Moderate documented in this encounterK[facility]24 NoteHNO ID: [id number] Author: ZEYNEP SCHMIDT APRN.VICKIE Service: ? Author Type: Nurse Practitioner Type: Progress Notes Filed: 04/18/2024 15:54 Note Text: Reviewed. Zeynep Schmidt APRN.[facility]-2024 NoteHNO ID: [id number] Author: KHUSHBOO STOKES LPN Service: ? Author Type: LICENSED NURSE Type: Progress Notes Filed: 04/18/2024 15:49 Note Text: Contacted patient and agreeable with appt with Zeynep for 04/19/24. [facility] NoteHNO ID: [id number] Author: SHERRI DAVALOS MD Service: ? Author Type: Physician Type: Progress Notes Filed: 04/18/2024 11:32 Note Text: Reviewed. Would still recommend in person OV to evaluate pain and rule out fracture.[facility]09-05-20[facility] History of Present illness Narrative* Sherri Davalos MD - 04/18/2024 11:32 AM EDT Reviewed. Would still recommend in person OV to evaluate pain and rule out fracture. * Dalia Alvarado RN - 04/18/2024 10:44 AM EDT Pt called and is notified of providers message and instructions. Pt voices understanding, but states she isn't able to come in it's a matter of income. I tried to get her I today with Shani Castorena. Pt states she has muscle spasms in her hands and buttocks any ways and essential tremors. She reports it was a little kids wagon that hit her when she was carrying stuff, and she will remember tokeep up on the Ibuprofen even though it tears her stomach up. Tried again to get Pt to maldonado an appointment with the weekend coming up, but she declined. Dalia Alvarado RN * Sherri Davalos MD - 04/18/2024 9:51 AM EDT Needs OV for evaluation. * Brooke Rao RN - 04/18/2024 8:43 AM EDT CDM Telephonic Outreach Provider Action/FYI -Left hip pain, does not radiate. 7-10/10 sharp pain, constant for a couple weeks. Started after patient had a fall, a wagon "came down and knocked patient off her feet". Taking tylenol and flexeril.Patient states she can only be in a position for so long before she has to move again due to the pain. -Patient declined virtualist call and follow up with PCP. -ckd, copd, dm, htn -11/04-g,f,a -05/07-s Contacted for: Routine Telephonic Outreach Contact made with patient: Yes Patient identified by name and date of . Discussed care with patient Are you experiencing any new or worsening symptoms you need to talk about today? Yes Based on waiter/waitress cocktail lounge, the following disposition is advised: No symptoms or symptoms present, not severe. Routed to: No Action Needed ALLEN Education Provided this Outreach: No Brooke Rao RN April 18, 2024 8:50 AM documented in this encounterK[facility]09-[facility]-2024 NoteHNO ID: [id number] Author: DALIA ALVARADO RN Service: ? Author Type: Registered Nurse Type: Progress Notes Filed: 04/18/2024 10:50 Note Text: Pt called and is notified of providers message and instructions. Pt voices understanding, but states she isn't able to come in it's a matter of income. I tried to get her I today with Shani Zamora FITNESS COORDINATOR. Pt states she has muscle spasms in her hands and buttocks any ways and essential tremors. She reports it was a little kids wagon that hit her when she was carrying stuff, and she will remember to keep up on the Ibuprofen even though it tears her stomach up. Tried again to get Pt to maldonado an appointment with the weekend coming up, but she declined. Dalia Alvarado RNLakehealth [facility]point [facility] Center09-05-2024 NoteHNO ID: [id number] Author: SHERRI DAVALOS MD Service: ? Author Type: Physician Type: Progress Notes Filed: 04/18/2024 09:51 Note Text: Needs OV for evaluation.[facility]09-05-2024 NoteHNO ID: [id number] Author: BROOKE RAO RN Service: ? Author Type: Registered Nurse Type: Progress Notes Filed: 04/18/2024 08:59 Note Text: CDM Telephonic Outreach Provider Action/FYI -Left hip pain, does not radiate. 7-05/23 sharp pain, constant for a couple weeks. Started after patient had a fall, a wagon "came down and knocked patient off her feet". Taking tylenol and flexeril. Patient states she can only be in a position for so long before she has to move again due to the pain. -Patient declined virtualist call and follow up with PCP. -ckd, copd, dm, htn -11/04-g,f,a -05/07-s Contacted for: Routine Telephonic Outreach Contact made with patient: Yes Patient identified by name and date of . Discussed care with patient Are you experiencing any new or worsening symptoms you need to talk about today? Yes Based on waiter/waitress cocktail lounge, the following disposition is advised: No symptoms or symptoms present, not severe. Routed to: No Action Needed ALLEN Education Provided this Outreach: No Brooke Rao RN April 18, 2024 8:50 [facility]09-05-2024 NotePatient Outreach ([facility]) ZORAIDA BARTH ([id number]) 1950 F Date Time Provider Department 04/18/24 BROOKE RAO [facility] During your visit today, we recorded the following information about you: Brooke Rao RN 04/18/2024 8:59 AM Signed CD Telephonic Outreach Provider Action/FYI -Left hip pain, does not radiate. 7-05/23 sharp pain, constant for a couple weeks. Started after patient had a fall, a wagon "came down and knocked patient off her feet". Taking tylenol and flexeril. Patient states she can only be in a position for so long before she has to move again due to the pain. -Patient declined virtualist call and follow up with PCP. -ckd, copd, dm, htn -11/04-g,f,a -05/07-s Contacted for: Routine Telephonic Outreach Contact made with patient: Yes Patient identified by name and date of . Discussed care with patient Are you experiencing any new or worsening symptoms you need to talk about today? Yes Based on waiter/waitress cocktail lounge, the following disposition is advised: No symptoms or symptoms present, not severe. Routed to: No Action Needed ALLEN Education Provided this Outreach: No Brooke Rao RN April 18, 2024 8:50 AM Sherri Davalos MD 04/18/2024 9:51 AM Signed Needs OV for evaluation. Dalia Alvarado RN 04/18/2024 10:50 AM Signed Pt called and is notified of providers message and instructions. Pt voices understanding, but states she isn't able to come in it's a matter of income. I tried to get her I today with Shani Zamora FITNESS COORDINATOR. Pt states she has muscle spasms in her hands and buttocks any ways and essential tremors. She reports it was a little kids wagon that hit her when she was carrying stuff, and she will remember to keep up on the Ibuprofen even though it tears her stomach up. Tried again to get Pt to maldonado an appointment with the weekend coming up, but she declined. JAZMYNE Paz Christopher B, MD 04/18/2024 11:32 AM Signed Reviewed. Would still recommend in person OV to evaluate pain and rule out fracture. Khushboo Stokes LPN 04/18/2024 3:49 PM Signed Contacted patient and agreeable with appt with Zeynep for 04/19/24. Khushboo Stokes LPN Allergies As of Date: 04/18/2024 Noted Allergy Reaction METFORMIN 07/27/2022 8 - GI Upset POISON RAHEL EXTRACT 12/24/2021 14 - Other: See Comments Comments: Severe rash [id number] REDUCTASE INHIBIT*09/05/2012 14 - Other: See Comments Comments: cholesterol medications cause liver pain Date Reviewed: 03/18/2024 Reviewed by: Khushboo Stokes LPN - Fully Assessed Reason for Visit: CDM [Other] Cmt: Community Monitoring Outreach Call Prescriptions as of 04/18/2024 - cyclobenzaprine (FLEXERIL) 5 mg tablet Take 1 tablet by mouth two times a day as needed for muscle spasm (Pain). - levothyroxine (SYNTHROID) 150 mcg tablet Take 1 tablet by mouth once daily. Take on empty stomach. For thyroid - sertraline (ZOLOFT) 100 mg tablet Take 1 tablet by mouth once daily. - lisinopril (ZESTRIL) 20 mg tablet Take 1 tablet by mouth two times a day. - amLODIPine (NORVASC) 10 mg tablet Take 1 tablet by mouth once daily. - propranolol (INDERAL) 20 mg tablet Take 20 mg by mouth two times a day. - acetaminophen (TYLENOL) 500 mg tablet Take 1,000 mg by mouth every 8 hours as needed for pain. - loratadine (CLARITIN) 10 mg tablet Take 10 mg by mouth once daily. As needed - primidone (MYSOLINE) 50 mg tablet Take 2 tablets by mouth daily at bedtime. - hydroCHLOROthiazide 25 mg tablet Take 1 tablet by mouth every afternoon. - blood sugar diagnostic (BLOOD GLUCOSE TEST) test strip Test blood sugar(s) 1 times daily. Dx: Type 2 DM - Uncontrolled E11.65 Insulin: No - albuterol HFA (VENTOLIN HFA) 90 mcg/actuation inhaler Inhale 2 Puffs as instructed every 4 hours as needed. - Lancets lancets Test blood sugar(s) 1 times daily. Dx: Type 2 DM - Uncontrolled E11.65 Insulin: No - Blood-Glucose Meter monitoring kit Glucose Meter of Choice - Kit - Use once daily Dx: Type 2 DM - Uncontrolled E11.65 - aspirin, enteric coated (ASPIRIN, ENTERIC COATED) 81 mg EC tablet Take 81 mg by mouth once daily. - NITROGLYCERIN BUCCAL Place between cheek and gum. 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] 10/02/2017 Depression [F32.A] 10/02/2017 02/20/2018 Non-rheumatic mitral regurgitation [I34.0] 10/03/2017 Liver cyst [K76.89] 10/03/2017 (more content not included)...[facility]08-28-2024 Telephone encounter Note* Telephone Encounter - Lul Dash LPN - 04/10/2024 9:09 AM EDT Prescription Refill Information The patient has been identified by name and date of : Yes Caregiver verified no other encounters exist for this prescription request: Yes Caregiver confirmed with patient/requestor that no other refills are due, in the near future, with this provider at this time: Yes The last office visit in the department: 03/18/24 Does the patient have a future office visit with this provider/department: Yes, 09/18/24 Requested Prescriptions Pending Prescriptions Disp Refills cyclobenzaprine (FLEXERIL) 5 mg tablet 60 tablet 0 Sig: Take 1 tablet by mouth two times a day as needed for muscle spasm (Pain). Lul Dash LPN April 10, 2024 9:09 AM [facility]08-28-2024 Miscellaneous Notes* Telephone Encounter - Lul Dash LPN - 04/10/2024 9:09 AM EDT Prescription Refill Information The patient has been identified by name and date of : Yes Caregiver verified no other encounters exist for this prescription request: Yes Caregiver confirmed with patient/requestor that no other refills are due, in the near future, with this provider at this time: Yes The last office visit in the department: 03/18/24 Does the patient have a future office visit with this provider/department: Yes, 09/18/24 Requested Prescriptions Pending Prescriptions Disp Refills cyclobenzaprine (FLEXERIL) 5 mg tablet 60 tablet 0 Sig: Take 1 tablet by mouth two times a day as needed for muscle spasm (Pain). Lul Dash LPN April 10, 2024 9:09 AM documented in this encounterK[facility] Telephone encounter Note * Telephone Encounter - Lul Dash LPN - 04/05/2024 10:37 AM EDT Prescription Refill Information The patient has been identified by name and date of : Yes Caregiver verified no other encounters exist for this prescription request: Yes Caregiver confirmed with patient/requestor that no other refills are due, in the near future, with this provider at this time: Yes The last office visit in the department: 03/18/24 Does the patient have a future office visit with this provider/department: Yes, 09/18/24 Requested Prescriptions Pending Prescriptions Disp Refills levothyroxine (SYNTHROID) 150 mcg tablet 90 tablet 1 Sig: Take 1 tablet by mouth once daily. Take on empty stomach. For thyroid Lul Dash LPN April 05, 2024 10:37 AM [facility]08-23-2024 Miscellaneous Notes* Telephone Encounter - Lul Dash LPN - 04/05/2024 10:37 AM EDT Prescription Refill Information The patient has been identified by name and date of : Yes Caregiver verified no other encounters exist for this prescription request: Yes Caregiver confirmed with patient/requestor that no other refills are due, in the near future, with this provider at this time: Yes The last office visit in the department: 03/18/24 Does the patient have a future office visit with this provider/department: Yes, 09/18/24 Requested Prescriptions Pending Prescriptions Disp Refills levothyroxine (SYNTHROID) 150 mcg tablet 90 tablet 1 Sig: Take 1 tablet by mouth once daily. Take on empty stomach. For thyroid Lul Dash LPN April 05, 2024 10:37 AM documented in this encounterK[facility] Telephone encounter Note * Telephone Encounter - Fawad Manzano - 03/22/2024 12:42 PM EDTSummary: pateint questions Patient had questions about blood work/ lab work that was supposed to be placed. Please advise and contact patient via phone [facility]08-07-2024 Note* Addendum Note - Sherri Davalos MD - 03/20/2024 11:33 AM EDTAddended by: SHERRI DAVALOS on: 03/20/2024 11:33 AM Modules accepted: Orders [facility]08-07-2024 Miscellaneous Notes* Addendum Note - Sherri Davalos MD - 03/20/2024 11:33 AM EDTAddended by: SHERRI DAVALOS on: 03/20/2024 11:33 AM Modules accepted: Orders documented in this encounterK[facility]24 History of Present illness Narrative* Sherri Davalos MD - 03/20/2024 11:30 AM EDT Referral order placed. * Brooke Rao RN - 03/20/2024 9:30 AM EDT CDM Telephonic Outreach Provider Action/FRANCOISE Davalos -Patient interested in speaking with Manager Talent Management on diet for CKD and DM. Please place referral andhave office notify patient once ready to be scheduled. -ckd, copd, dm, htn -11/04-g,f,a,s -Instructed patient on renal diet basics -reiterated diet information from phone call yesterday with Sherri Davalos MD office Patient denies any questions, concerns, or needs. Reviewed upcoming appointments. Appointments for Next 60 Days Date Time Provider Location Dept Phone 04/08/2024 9:20 AM [facility] ([facility]) Lukas Holman [phone] 05/15/2024 12:00 PM DEAN DUBOIS [phone] Contacted for: Routine Telephonic Outreach Contact made with patient: Yes Patient identified by name and date of . Discussed care with patient Are you experiencing any new or worsening symptoms you need to talk about today? No Disease Specific Do you check your blood pressure at home? Yes, Enter readings: readings have been good, 126/62 Do you have new or worsening shortness of breath with activity? No Do you feel like you are dehydrated for any reason, including not being able to eat or drink normally, or having less urine/much darker urine than normal for you? Yes-typically drinks around 48oz of water today, lemonade and a can of coke Do you check your daily weight at home? No and Do you have new or worsening cough? No Do you have new or worsening wheezing? No Do you need to use your rescue (Albuterol) inhaler or nebulizer more often than normal? 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 Routed to: No Action Needed ALLEN Education Provided this Outreach: No Brooke Rao RN March 20, 2024 9:39 AM documented in this encounterK[facility] Evaluation note* Diagnosis Stage 3a chronic kidney disease (HCC)- Primary Type 2 diabetes mellitus with stage 3a chronic kidney disease, without long-term current use of insulin (HCC) documented in this encounter [facility]08-06-2024 Telephone encounter Note* Telephone Encounter - Alyce Koenig MA - 03/19/2024 10:27 AM EDT Pt notified. Transferred to [facility] to set up appt with armament aircraft mechanic. Alyce Koenig MA [facility]08-06-2024 Miscellaneous Notes* Telephone Encounter - Alyce Koenig MA - 03/19/2024 10:27 AM EDT Pt notified. Transferred to [facility] to set up appt with armament aircraft mechanic. Alyce Koenig MA * Telephone Encounter - Sherri Davalos MD - 03/19/2024 9:39 AM EDT Patient's blood work shows continued mild elevation in her WBC without other abnormal cell lines. Ibelieve this is related to her smoking. I would again recommend quitting smoking. Please let me know if she would like help quitting. Kidney function is slightly improved in the last 2-3 months, but still in CKD stage III range. Potassium level is also still high. UA negative for infection, but does show some protein and dehydration. Recommend referral to armament aircraft mechanic in this diabetic patient with deteriorating kidney function. Stop any potassium containing supplements, limit high potassium foods, and recheck level at the end of the week. Recommend low sodium diet <2,000 mg per day, avoidance of NSAIDs, and increased water intake. documented in this encounterK[facility] Telephone encounter Note * Telephone Encounter - Sherri Davalos MD - 03/19/2024 9:39 AM EDT Patient's blood work shows continued mild elevation in her WBC without other abnormal cell lines. Ibelieve this is related to her smoking. I would again recommend quitting smoking. Please let me know if she would like help quitting. Kidney function is slightly improved in the last 2-3 months, but still in CKD stage III range. Potassium level is also still high. UA negative for infection, but does show some protein and dehydration. Recommend referral to armament aircraft mechanic in this diabetic patient with deteriorating kidney function. Stop any potassium containing supplements, limit high potassium foods, and recheck level at the end of the week. Recommend low sodium diet <2,000 mg per day, avoidance of NSAIDs, and increased water intake. [facility]08-06-2024 Evaluation note* Diagnosis CKD stage 3b, GFR 30-44 ml/min (HCC)- Primary Type 2 diabetes mellitus with stage 3a chronic kidney disease, without long-term current use of insulin (HCC) documented in this encounter [facility]08-05-2024 History of Present illness Narrative* Sherri Davalos MD - 03/18/2024 10:43 AM EDT Chief Complaint Patient presents with: Follow Up: 3 month HPI Zoraida Barth is a 73 year old female who presents here today for Above Complaints.. DIABETES MELLITUS: Ms. Barth was last seen 3 months ago. Since our last visit she denies excessive thirst or increased frequency of urination, numbness, tingling or pain in extremities, new or unusual visual symptoms, and low sugar/hypoglycemic reactions. Follows a diabetic diet generally not very much. Diet controlled. She reports checking her glucose on a once a day schedule with sugars in the fasting <130 range. Patient's last HgA1C was Hemoglobin A1C (%) Date Value 03/06/2024 6.6 09/06/2023 6.5 09/14/2021 6.3 03/12/2021 6.6 ) Last Ophthalmology exam was within the past 12 months. Has appointment on 04/02 at [facility]. Last Podiatry exam was more than 12 months ago CKD typically in stage IIIa range, but down to stage IIIb range on recent labs. Patient states thatshe has been eating higher sodium diet. Does not take ibuprofen or Aleve on a regular basis. Drinking about 36 oz of water per day along with a can of Coke. WBC also mildly elevated on recent labs. Has not been ill recently and has not taken any steroid. BP well controlled on current regimen. Still smoking 1 pack per day and is not ready to quit. Past medical history, appointments, medications, allergies reviewed. Previous Medical History PAST MEDICAL HISTORY No date: Asthma Comment: See PFT 12/2020 No date: Cataracts, bilateral No date: CKD (chronic kidney disease), stage III (HCC) No date: Coronary artery disease Comment: s/p PTCA with [facility]LEXIS to RCA 04/27, 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 Thompson 10/03/2017: Non-rheumatic mitral regurgitation No date: Onychomycosis No date: Shingles No date: Statin intolerance No date: Tobacco use disorder Previous Surgical History PAST SURGICAL HISTORY No date: ARTHROSCOPY KNEE DIAGNOSTIC W/WO SYNOVIAL BX SPX Comment: Arthroscopy, knee right 10/18/2017: LAPAROSCOPY SURG CHOLECYSTECTOMY Comment: Cholecystectomy, lap No date: LIG/TRNSXJ FLP TUBE ABDL/VAG APPR UNI/BI Comment: Tubal ligation 1994: PAST SURGICAL HISTORY OF Comment: kidney stone extraction: cut ureter 2013: STENT - CORONARY No date: TONSILLECTOMY HX 1991: TOTAL ABDOMINAL HYSTERECT W/WO RMVL TUBE OVARY Comment: Hysterectomy, THANG, BSO 1994: URETERAL STENT Comment: 2nd surgery Family History FAMILY HISTORY Problem Relation Age of Onset Heart Mother Diabetes Mother Hypertension Mother other (unknown) Father Hypertension Sister Thyroid Sister Asthma Sister Skin Cancer Other 1st cousin, unsure of type other (horseshoe kidney) Son Patient Allergies ALLERGIES Allergen Reactions Metformin GI Upset Poison Rahel Extract Other: See Comments Severe rash Gcwaegy-Bxp-Jqa Red* Other: See Comments cholesterol medications cause liver pain Current Medications Current Outpatient Medications on File Prior to Visit Medication Sig sertraline (ZOLOFT) 100 mg tablet Take 1 tablet by mouth once daily. lisinopril (ZESTRIL) 20 mg tablet Take 1 tablet by mouth two times a day. amLODIPine (NORVASC) 10 mg tablet Take 1 tablet by mouth once daily. cyclobenzaprine (FLEXERIL) 5 mg tablet Take 1 tablet by mouth two times a day as needed for muscle spasm (Pain). propranolol (INDERAL) 20 mg tablet Take 20 mg by mouth two times a day. acetaminophen (TYLENOL) 500 mg tablet Take 1,000 mg by mouth every 8 hours as needed for pain. loratadine (CLARITIN) 10 mg tablet Take 10 mg by mouth once daily. As needed levothyroxine (SYNTHROID) 150 mcg tablet Take 1 tablet by mouth once daily. Take on empty stomach. For thyroid primidone (MYSOLINE) 50 mg tablet Take 2 tablets by mouth daily at bedtime. hydroCHLOROthiazide 25 mg tablet Take 1 tablet by mouth every afternoon. blood sugar diagnostic (BLOOD GLUCOSE TEST) test strip Test blood sugar(s) 1 times daily. Dx: Type 2 DM - Uncontrolled E11.65 Insulin: No albuterol HFA (VENTOLIN HFA) 90 mcg/actuation inhaler Inhale 2 Puffs as instructed every 4 hours asneeded. Lancets lancets Test blood sugar(s) 1 times daily. Dx: Type 2 DM - Uncontrolled E11.65 Insulin: No Blood-Glucose Meter monitoring kit Glucose Meter of Choice - Kit - Use once daily Dx: Type 2 DM - Uncontrolled E11.65 aspirin, enteric coated (ASPIRIN, ENTERIC COATED) 81 mg EC tablet Take 81 mg by mouth once daily. NITROGLYCERIN BUCCAL Place between cheek and gum. No current facility-administered medications on file prior to visit. Social History Social History Tobacco Use Smoking status: Every Day Packs/day: 1.00 Years: 55.00 Additional pack years: 0.00 Total pack years: 55.00 Types: Cigarettes Start date: 08/14/1969 Smokeless tobacco: Never Vaping Use Vaping Use: Never used Substance Use Topics Alcohol use: No Comment: Rarely Drug use: No Review of Symptoms REVIEW OF SYSTEMS GENERAL: No weight loss, malaise or fevers RESPIRATORY: Negative for cough, hemoptysis, wheezing, COPD, dyspnea or shortness of breath CARDIOVASCULAR: Negative for chest pain, leg swelling, hypertension, CHF or palpitations GI: No nausea, vomiting, or diarrhea SKIN: Negative for lesions, rash, and itching EXAM: BP 126/62 Pulse (!) 56 Resp 18 Wt 96.8 kg (213 lb 6.5 oz) SpO2 96% BMI 38.41 kg/m General Appearance: Well appearing, alert, in no acute distress, well-hydrated, well nourished.. Skin: Skin color, texture, turgor normal, no suspicious rashes or lesions. Lungs: Lungs clear to auscultation. No wheezing, rhonchi, rales.. Heart: RRR without murmur, gallop, or rubs. No ectopy. Abdomen: Normal abdominal exam, Abdomen soft, non-tender. Bowel sounds normal. No masses, organomegaly. Extremities: No deformities, edema, skin discoloration, clubbing or cyanosis. Good capillary refill. . Feet: Shoes and socks removed, No deformities, ulcers, calluses, normal distal pulses, and sensitive to 10 gm monofilament Health Maintenance List Anxiety Screening Never done Lung Cancer Screening Never done Mammogram Screening due on 08/13/2021 Dilated Retinal Exam due on 01/12/2022 Advance Directive Discussion due on 08/14/2023 Diabetic Foot Exam due on 01/27/2024 DTaP,Tdap,Td Vaccine(1 - Tdap) due on 09/12/2024 RSV Vaccine(1 - 1-dose 60+ series) due on 09/12/2024 Shingrix Vaccine(1 of 2) due on 09/12/2024 Alpha-1 Antitrypsin Deficiency Screening due on 12/11/2024 Influenza Vaccine(1) due on 04/14/2024 Colorectal Cancer Screening due on 06/24/2024 LDL Cholesterol due on 09/06/2024 HbA1C due on 09/06/2024 Annual PCP Team Chronic Disease Visit due on 12/11/2024 Urine Albumin:Creatinine Ratio due on 03/06/2025 Serum Creatinine due on 03/06/2025 Hemoglobin/Hematocrit due on 03/06/2025 BP Controlled (<130/80) due on 03/11/2025 Bone Density Screening Completed Spirometry Completed Hepatitis C Screening Completed Covid-19 Vaccine Completed Pneumococcal Vaccine: 65+ Completed Data reviewed Latest Ref Rng 09/06/2023 03/06/2024 WBC 3.70 - 11.00 k/uL 12.24 (H) RBC 3.90 - 5.20 m/uL 3.79 (L) Hemoglobin 11.5 - 15.5 g/dL 12.8 Hematocrit 36.0 - 46.0 % 39.8 MCV 80.0 - 100.0 fL 105.0 (H) MCH 26.0 - 34.0 pg 33.8 MCHC 30.5 - 36.0 g/dL 32.2 RDW-CV 11.5 - 15.0 % 14.0 Platelet Count 150 - 400 k/uL 303 MPV 9.0 - 12.7 fL 11.6 Neut% % 59.6 Abs Neut (ANC) 1.45 - 7.50 k/uL 7.28 Lymph% % 28.9 Abs Lymph 1.00 - 4.00 k/uL 3.54 Sawyer% % 6.6 Abs Sawyer <0.87 k/uL 0.81 Eosin% % 3.4 Abs Eosin <0.46 k/uL 0.42 Baso% % 0.8 Abs Baso <0.11 k/uL 0.10 Immature Gran % % 0.7 IMMATURE GRANS (ABS) <0.10 k/uL 0.09 NRBC /100 WBC 0.0 Absolute nRBC <0.01 k/uL <0.01 DTYPE Auto Protein, Total 6.3 - 8.0 g/dL 7.3 7.2 Albumin 3.9 - 4.9 g/dL 4.3 4.5 Calcium 8.5 - 10.2 mg/dL 9.6 9.4 Bilirubin, Total 0.2 - 1.3 mg/dL <0.2 (L) <0.2 (L) Alkaline Phosphatase 34 - 123 U/L 71 84 AST 13 - 35 U/L 17 15 ALT 7 - 38 U/L 7 <5 (L) Glucose 74 - 99 mg/dL 119 (H) 113 (H) BUN 7 - 21 mg/dL 21 46 (H) Creatinine 0.58 - 0.96 mg/dL 1.14 (H) 1.51 (H) Sodium 136 - 144 mmol/L 143 138 Potassium 3.7 - 5.1 mmol/L 4.8 5.3 (H) Chloride 98 - 107 mmol/L 107 (H) 107 CO2 22 - 30 mmol/L 24 20 (L) Anion Gap 8 - 15 mmol/L 12 11 eGFR >=60 mL/min/1.73m 52 (L) 37 (L) Cholesterol, Total <200 mg/dL 289 (H) Triglyceride <150 mg/dL 170 (H) HDL Cholesterol >39 mg/dL 37 (L) Non HDL Cholesterol <130 mg/dL 252 (H) Fasting Time hrs 12 VLDL Cholesterol <30 mg/dL 34 (H) TC:HDL Ratio <5.10 7.81 (H) LDL Cholesterol <100 mg/dL 218 (H) LDL:HDL Ratio <2.54 5.89 (H) Creatinine, Ur Random (UCRR) 20.0 - 300.0 mg/dL 95.6 Albumin, Urine Random mg/L 16.4 Albumin/Creat Ratio <30 mg/g 17 Hemoglobin A1C 4.3 - 5.6 % 6.5 (H) 6.6 (H) Estimated Average Glucose mg/dL 140 143 Legend: (L) Low (H) High ASSESSMENT/PLAN: 1. Type 2 diabetes mellitus with stage 3a chronic kidney disease, without long- term current use of insulin ([facility]) - ICD9: 250.40, 585.3, ICD10: E11.22, N18.31 (primary diagnosis) - Controlled - Continue current medications - Intolerant to statins - Blood glucose monitoring on a once daily schedule - Counseled on healthy diet and regular exercise - Discussed need for and benefit of weight loss. BMI 38.41 kg/(m^2) - Discussed diabetic education issues of diabetes complications and monitoring required, hypoglycemic/hyperglycemic symptoms, and medication-specific side effects and monitoring - Follow up in 6 months, sooner should any other issues arise. 2. Stage 3a chronic kidney disease (HCC) - ICD9: 585.3, ICD10: N18.31 - eGFR: 37 Worsening - Counseled on avoiding NSAIDs, adequate hydration - Counseled on low sodium diet - recheck labs and UA today. If worsening will obtain US and refer to nephrology. - URINALYSIS WITH MICROSCOPIC, REFLEX CULTURE - COMPREHENSIVE METABOLIC PANEL 3. Essential hypertension - ICD9: 401.9, ICD10: I10 - Controlled - Continue current medications - Recommend home blood pressure monitoring, to bring results to next visit - Encouraged sodium restriction, DASH or Mediterranean diet - Recommend regular aerobic exercise 4. Leukocytosis, unspecified type - ICD9: 288.60, ICD10: D72.829 Chronic, stable. Obtain peripheral smear. Suspect this may be 2/2 smoking. Patient refusing help with cessation. - PATHOLOGIST INTERPRETATION WITH CBC AND DIFF 5. Acquired hypothyroidism - ICD9: 244.9, ICD10: E03.9 - Instructed patient on importance of taking on an empty stomach either first thing in the morning or at bedtime. - check TSH today - continue current dose of Synthroid - THYROID STIMULATING HORMONE 6. Tobacco use disorder - ICD9: 305.1, ICD10: F17.200 - Cessation encouraged. - Physiologic and physical aspects of tobacco addiction as well as strategies for quitting were discussed. - Counseling was given focusing on the harmful effects of this addiction especially given the patient's medical condition(s) which will be worsened because of the chemicals in tobacco. Sherri Davalos MD documented [facility] Telephone encounter Note * Telephone Encounter - Mariella Cardona LPN - 03/15/2024 11:41 AM EDT Prescription Refill Information The patient has been identified by name and date of : Yes Caregiver verified no other encounters exist for this prescription request: Yes Caregiver confirmed with patient/requestor that no other refills are due, in the near future, with this provider at this time: Yes The last office visit in the department: 12/12/2023 Does the patient have a future office visit with this provider/department: Yes Requested Prescriptions Pending Prescriptions Disp Refills sertraline (ZOLOFT) 100 mg tablet 90 tablet 1 Sig: Take 1 tablet by mouth once daily. Mariella Cardona LPN March 15, 2024 11:41 AM [facility]08-02-2024 Miscellaneous Notes* Telephone Encounter - Mariella Cardona LPN - 03/15/2024 11:41 AM EDT Prescription Refill Information The patient has been identified by name and date of : Yes Caregiver verified no other encounters exist for this prescription request: Yes Caregiver confirmed with patient/requestor that no other refills are due, in the near future, with this provider at this time: Yes The last office visit in the department: 12/12/2023 Does the patient have a future office visit with this provider/department: Yes Requested Prescriptions Pending Prescriptions Disp Refills sertraline (ZOLOFT) 100 mg tablet 90 tablet 1 Sig: Take 1 tablet by mouth once daily. Mariella Cardona LPN March 15, 2024 11:41 AM documented in this encounterK[facility]-29-[facility]24 Instructions* Patient Instructions* Elayne Mondragon APRN.ROLL COATING MACHINE OPERATOR - 03/11/2024 8:47 AM EDT SMOKING CESSATION EDUCATION Why do I need to know about the health risks of cigarette smoking? Cigarette smoking is the most preventable cause of illness and . Cigarettes are filled with nicotine, which acts like a poison in your body. What are the health risks of cigarette smoking? You may have breathing problems that make it difficult for you to do daily activities or play sports. You have a higher risk of bone fractures because smoking can cause osteoporosis (brittle bones). If you fall asleep with a lit cigarette, you can start a fire. Cigarette smoking can also cause the following health problems: Cancer: Heart and blood vessel disease: The nicotine in tobacco causes an increase in your heart rate and blood pressure. Nicotine also causes your blood vessels to narrow. This can lead to blood clots in your heart or brain and cause a heart attack or stroke. Cigarette smoke has carbon monoxide init. This can decrease the amount of oxygen flowing to your heart and other organs. Lung disease: The chemicals in cigarette smoke can damage your lungs. This causes a buildup of dirtand waste products in your lungs. Many people who smoke have a long-term cough as a result. Cigarette smoking may also cause long-term lung infections or diseases, such as asthma, emphysema, or chronic bronchitis. You are also at higher risk for respiratory illnesses, such as colds or pneumonia. Gastrointestinal disease: Cigarette smoking increases the amount of acid in your stomach. This can cause an ulcer or gastric reflux. Women and smoking: You have a higher risk of heart and blood vessel disease if you smoke and take control pills. The risk is more serious is you are 35 years or older. Why should I quit smoking? Your health will improve and your risks for many diseases will decrease.Your breath, clothes, and hair will no longer smell like smoke. Tobacco will no longer stain your teeth. Tobacco smoke is dangerous to others. If you quit, you will decrease the risks to those aroundyou, such as your children or family members. Where can I go for support and more information? There are many ways to quit smoking. Some may workbetter for you than others. Your caregiver can help you find the best plan to quit. Smokefree.gov Web Address: www.smokefree.gov Phone: [place] [employer] Web Address: www.lung.org [address] [place] [address] , [place] Phone: Phone: [facility] Smoking Cessation Program [email or web address]/[email or web address].pdf CT Lung Screen Results The CT scan that you will have done will show if you have any nodules (small spots) in your lungs that are suspicious for cancer. Around 90% of the patients who have this scan done are found to have at least one nodule. Most nodules are benign (not cancer) and of no harm to you at all. A specialistwill make a scientific evaluation about whether or not a nodule is worrisome based on its size and shape. The radiologist who will read your scan will put it into one of four categories: LUNG-RADS Category Description Overall Probability of Malignancy Recommended Follow-Up 1 Negative No nodules and definitely benign (non-cancerous nodules) Essentially 0. 1 Year - Follow-up Low dose CT 2 Benign Appearance or Behavior Nodules with a very low likelihood of becoming cancer due to size or lack of growth Less than 1% 1 Year - Follow-up Low dose CT 3 Probably Benign Probably benign finding, short term follow-up recommended 1 to 2% 6 Months - Follow-up Low dose CT 4 Suspicious Findings for which additional diagnostic testing and/or biopsy is recommended Will be calculated based on nodule characteristics. Dependent on what is seen on the exam. (3 month follow-up CT, PET-CT, or biopsy) 0 Incomplete Findings suggestive of an inflammatory or infectious process AND/OR part of the lung cannot be evaluated Additional lung cancer screening CT imaging needed AND/OR comparison with prior chest CT imaging At times, we may see something outside of the lungs on the scan that could be a health concern. Below are some of the most common findings: S Clinically Significant or Potentially Clinically Significant Findings (non lung cancer) Referral or additional imaging/labs depending on result. Approximately 10% of people receive this result. Coronary Artery Calcifications (Moderate or Severe) - Referral to cardiology for further work-up and recommendations. Thyroid Nodule - TSH level and Thyroid Ultrasound dependent on size, referral to endocrinology. Adrenal Nodule - blood work and referral to endocrinology. Others Lung Cancer Screening hotline: [phone] Lung Cancer Screening [phone] Billing Questions: or [email or web address] Specialist Providers: (Debbie Baltazar PA-C; Emy Beckwith CNP; Yolanda Baeza CNP, Crissy Neri CNP; Paradise Moreland CNP; MALINI Rand; Elayne Mondragon CNP; Ale Carr CNP; Paige Gifford CNP; Lillian Gregory CNP; Linda Stallworth PA-C; Saskia Hobson PA-C; Sharon Torres CNP; Francoise Erickson CNP; Dalia Chowdhury CNP): [phone] documented in this encounterKettering [facility]07-29-2024 History of Present illness Narrative* Elayne Mondragon APRN.CNP - 03/11/2024 8:38 AM EDT Images from the original note were not included. LUNG SCREENING VISIT PRIMARY CARE PHYSICIAN: Sherri Davalos MD PULMONARY PROVIDER: none Results will be communicated via letter or electronic record if applicable. Visit Delivery: In Person Patient Visit Type: New to Screening Current or Ex-smoker? [Current Exam Type: baseline LDCT Number of Pack Years: 54 Current smoker (=0) REQUESTER: The referring provider advised the patient to have screening. HISTORY OF PRESENT ILLNESS: Zoraida Barth is a 73 year old Active smoker who presents for lung screening. Currently smoking 1 pack daily. Pt has never tried to quit. Respiratory symptoms include: SOB: No Chest tightness: No Coughing: No Hemoptysis: No Wheezing: No Fever/Chills: No Recent Respiratory Infection: No Unintentional weight loss: No Last 6 Encounter Wt Readings: Date: Wt: 03/11/2024 95.3 kg (210 lb) 12/12/2023 96 kg (211 lb 9.6 oz) 09/12/2023 99.1 kg (218 lb 6.4 oz) 06/12/2023 96.6 kg (213 lb) 06/05/2023 95.3 kg (210 lb) 03/28/2023 96.5 kg (212 lb 12.8 oz) ECOG PERFORMANCE STATUS: 0- Fully active, able to carry on all pre-disease performance w/o restriction. Modified Medical Research [place] Dyspnea Scale (MMRC) I only get breathless with strenous exercise 0 PAST MEDICAL HISTORY Diagnosis Date Asthma See PFT 12/2020 Cataracts, bilateral CKD (chronic kidney disease), stage III (HCC) Coronary artery disease s/p PTCA with ALEXIS to RCA 04/27, 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 Thompson Non-rheumatic mitral regurgitation 10/03/2017 Onychomycosis Shingles Statin intolerance Tobacco use disorder PAST SURGICAL HISTORY Procedure Laterality Date ARTHROSCOPY KNEE DIAGNOSTIC W/WO SYNOVIAL BX SPX Arthroscopy, knee right LAPAROSCOPY SURG CHOLECYSTECTOMY 10/18/2017 Cholecystectomy, lap LIG/TRNSXJ FLP TUBE ABDL/VAG APPR UNI/BI Tubal ligation PAST SURGICAL HISTORY OF 1994 kidney stone extraction: cut ureter STENT - CORONARY 2012 TONSILLECTOMY HX TOTAL ABDOMINAL HYSTERECT W/WO RMVL TUBE OVARY 1991 Hysterectomy, THANG, BSO URETERAL STENT 1994 2nd surgery FAMILY HISTORY Problem Relation Age of Onset Heart Mother Diabetes Mother Hypertension Mother other (unknown) Father Hypertension Sister Thyroid Sister Asthma Sister Skin Cancer Other 1st cousin, unsure of type other (horseshoe kidney) Son lisinopril (ZESTRIL) 20 mg tablet Take 1 tablet by mouth two times a day. amLODIPine (NORVASC) 10 mg tablet Take 1 tablet by mouth once daily. cyclobenzaprine (FLEXERIL) 5 mg tablet Take 1 tablet by mouth two times a day as needed for muscle spasm (Pain). propranolol (INDERAL) 20 mg tablet Take 20 mg by mouth two times a day. loratadine (CLARITIN) 10 mg tablet Take 10 mg by mouth once daily. As needed levothyroxine (SYNTHROID) 150 mcg tablet Take 1 tablet by mouth once daily. Take on empty stomach. For thyroid sertraline (ZOLOFT) 100 mg tablet Take 1 tablet by mouth once daily. primidone (MYSOLINE) 50 mg tablet Take 2 tablets by mouth daily at bedtime. hydroCHLOROthiazide 25 mg tablet Take 1 tablet by mouth every afternoon. albuterol HFA (VENTOLIN HFA) 90 mcg/actuation inhaler Inhale 2 Puffs as instructed every 4 hours asneeded. aspirin, enteric coated (ASPIRIN, ENTERIC COATED) 81 mg EC tablet Take 81 mg by mouth once daily. NITROGLYCERIN BUCCAL Place between cheek and gum. acetaminophen (TYLENOL) 500 mg tablet Take 1,000 mg by mouth every 8 hours as needed for pain. blood sugar diagnostic (BLOOD GLUCOSE TEST) test strip Test blood sugar(s) 1 times daily. Dx: Type 2 DM - Uncontrolled E11.65 Insulin: No Lancets lancets Test blood sugar(s) 1 times daily. Dx: Type 2 DM - Uncontrolled E11.65 Insulin: No Blood-Glucose Meter monitoring kit Glucose Meter of Choice - Kit - Use once daily Dx: Type 2 DM - Uncontrolled E11.65 ALLERGIES Allergen Reactions Metformin GI Upset Poison Rahel Extract Other: See Comments Severe rash Negrthb-Fic-Okl Red* Other: See Comments cholesterol medications cause liver pain The medications and allergies were reviewed and reconciled for this patient and deemed current. Lung Cancer Risk Factors: 1.Tobacco Use: Start Age 20, Quit Age: N/A, Average packs per day 1, Pack Years 56 2. Passive Smoke Exposure: Yes, as a Child and as an Adult 3. Personal hx of malignancy: No, Type of Cancer: 4. Significant exposures (1 year or more of exposure): None, 5. Race: White 6. Education: Some College 7. BMI:Body mass index is 37.8 kg/m . Patient-entered Height: 5'3" Patient-entered Weight: 210 pounds 8. COPD: No 9. Pneumonia in the past 5 years: No 10. Is there a history of lung cancer in a first degree relative? No 11. Is there a history of lung cancer in a non-first degree relative? No 12. Is there a history of any other cancer in a first degree relative? No Health Maintenance Immunization History Administered Date(s) Administered COVID-19 original vaccine, age 12+ yr, monovalent (Didi-Dache - [facility]) 07/29/2021 COVID-19 vaccine (MARY) 10/22/2020 COVID-19 vaccine, age 12+ yr, 2022- season (Didi-Dache) 06/12/2023 12/12/2023 COVID-19 vaccine, age 12+ yr, bivalent ([employer]) 07/27/2022 influenza (HD-IIV3) vaccine, age 65+ yr, high dose, PF (FLUZONE HIGH-DOSE) 05/17/2019 05/06/2020 05/02/2022 influenza (HD-IIV4) vaccine, age 65+ yr, high dose, quadrivalent, PF (FLUZONE HIGH-DOSE) 06/01/2021 06/12/2023 influenza (aIIV4) vaccine, age 65+ yr, quadrivalent, PF (FLUAD QUAD) 06/01/2021 05/02/2022 influenza (ccIIV4) vaccine, age 6+ mo, quadrivalent (FLUCELVAX) 05/06/2020 pneumococcal conjugate (PCV13) vaccine, 13 valent (PREVNAR 13) 04/20/2017 pneumococcal polysaccharide (PPV23) vaccine, 23 valent (PNEUMOVAX 23) 02/08/2019 Colonoscopy: 02/18/2019 Mammogram: 08/13/2020 DATA REVIEW I have directly visualized the testing documented: none Prior Imaging: Last CT/CTA Chest/Lungs No resulted procedures found. Last CT Chest - Impression Only No resulted procedures found. Last XR Chest - Impression Only No resulted procedures found. Pulmonary Function Testing: SPIROMETRY - BASELINE AND POST DILATOR ([id number]) - ordered on 01/05/21 No textual results for order. PHYSICAL EXAM: BP 108/60 Pulse (!) 58 Resp 17 Wt 95.3 kg (210 lb) SpO2 95% BMI 37.80 kg/m Deferred ASSESSMENT and RECOMMENDATIONS: 1. Screening for lung cancer: Six year risk for lung cancer: 5.81% [email or web address] I have determined that the patient is eligible for a low dose CT based on age, absence of signs or symptoms of lung cancer, and total pack years: Yes. The patient and I engaged in shared decision making, including the use of one or more decision aids, to include benefits, harms, follow-up diagnostic testing, over-diagnosis, false positive rate, andtotal radiation exposure. The patient understands and feels comfortable with it: Yes. The patient was counseled on the importance of adherence to annual LDCT lung cancer screening, impact of comorbidities and ability or willingness to undergo diagnosis and treatment. The patient understands and feels comfortable with it:Yes. 2. Nicotine dependence: The patient was counseled on the importance of smoking cessation if currentsmoker and, if appropriate, offered additional tobacco cessation counseling services - Smoking Cessation Counseling. SMOKING CESSATION COUNSELING Smoking cessation methods including Behavior Modification were discussed with the patient and assistance offered. The medical conditions adversely affected by cigarette use include:COPD, Emphysema, and Lung Cancer. The patient is currently not ready to quit. I personally spent 2 minutes in counseling. The time spent in smoking cessation counseling is exclusive of any other counseling during this visit. Elayne Mondragon APRN.ROLL COATING MACHINE OPERATOR NPI #: March 11, 2024 8:38 AM documented in this encounterK[facility] Telephone encounter Note * Telephone Encounter - Khushboo Stokes LPN - 03/08/2024 8:52 AM EDT Phoned patient and patient agreeable to 03/18/24 appointment at 1040am. Patient scheduled. Khushboo Stokes LPN [facility]07-26-2024 Miscellaneous Notes* Telephone Encounter - Khushboo Stokes LPN - 03/08/2024 8:52 AM EDT Phoned patient and patient agreeable to 03/18/24 appointment at 1040am. Patient scheduled. Khushboo Stokes LPN * Telephone Encounter - Khushboo Stokes LPN - 03/08/2024 8:47 AM EDT ----- Message from Sherri Davalos MD sent at 03/08/2024 8:17 AM EDT ----- Patient cancelled 3 month follow up to discuss DM. Needs to reschedule OV to discuss results and recommendations. documented in this encounterKet[facility]07-26-2024 Telephone encounter Note * Telephone Encounter - Khushboo Stokes LPN - 03/08/2024 8:47 AM EDT ----- Message from Sherri Davalos MD sent at 03/08/2024 8:17 AM EDT ----- Patient cancelled 3 month follow up to discuss DM. Needs to reschedule OV to discuss results and recommendations. [facility]07-25-2024 Telephone encounter Note* Telephone Encounter - Alyce Koenig MA - 03/07/2024 8:55 AM EDT Prescription Refill Information The patient has been identified by name and date of : Yes Caregiver verified no other encounters exist for this prescription request: Yes Caregiver confirmed with patient/requestor that no other refills are due, in the near future, with this provider at this time: No The last office visit in the department: 12/12/23 Does the patient have a future office visit with this provider/department: No Requested Prescriptions Pending Prescriptions Disp Refills lisinopril (ZESTRIL) 20 mg tablet 180 tablet 1 Sig: Take 1 tablet by mouth two times a day. Alyce Koenig MA March 07, 2024 8:55 AM [facility]-25-[facility] Miscellaneous Notes* Telephone Encounter - Alyce Koenig MA - 03/07/2024 8:55 AM EDT Prescription Refill Information The patient has been identified by name and date of : Yes Caregiver verified no other encounters exist for this prescription request: Yes Caregiver confirmed with patient/requestor that no other refills are due, in the near future, with this provider at this time: No The last office visit in the department: 12/12/23 Does the patient have a future office visit with this provider/department: No Requested Prescriptions Pending Prescriptions Disp Refills lisinopril (ZESTRIL) 20 mg tablet 180 tablet 1 Sig: Take 1 tablet by mouth two times a day. Alyce Koenig MA March 07, 2024 8:55 AM documented in this encounterKet[facility]07-13-2024 Telephone encounter Note * Telephone Encounter - Lul Dash LPN - 02/24/2024 11:09 AM EDT Prescription Refill Information The patient has been identified by name and date of : Yes Caregiver verified no other encounters exist for this prescription request: Yes Caregiver confirmed with patient/requestor that no other refills are due, in the near future, with this provider at this time: Yes The last office visit in the department: 12/12/23 Does the patient have a future office visit with this provider/department: No Requested Prescriptions Pending Prescriptions Disp Refills amLODIPine (NORVASC) 10 mg tablet 90 tablet 1 Sig: Take 1 tablet by mouth once daily. Lul Dash LPN February 24, 2024 11:09 AM [facility]07-13-2024 Miscellaneous Notes* Telephone Encounter - Lul Dash LPN - 02/24/2024 11:09 AM EDT Prescription Refill Information The patient has been identified by name and date of : Yes Caregiver verified no other encounters exist for this prescription request: Yes Caregiver confirmed with patient/requestor that no other refills are due, in the near future, with this provider at this time: Yes The last office visit in the department: 12/12/23 Does the patient have a future office visit with this provider/department: No Requested Prescriptions Pending Prescriptions Disp Refills amLODIPine (NORVASC) 10 mg tablet 90 tablet 1 Sig: Take 1 tablet by mouth once daily. Lul Dash LPN February 24, 2024 11:09 AM documented in this encounterK[facility]07-10-[facility] History of Present illness Narrative* Brooke Rao RN - 02/21/2024 3:32 PM EDT [facility] Telephonic Outreach Provider Action/FYI -ckd, copd, dm, htn -11/04-g,f,a,s -Essential tremors have improved since switching medications -discussed with patient A1c ordered and ready to be drawn at lab. -Patient denies any questions, concerns, or needs. Reviewed upcoming appointments. Appointments for Next 60 Days Date Time Provider Location Dept Phone 03/11/2024 8:30 AM ELAYNE MONDRAGON [phone] Contacted for: Routine Telephonic Outreach Contact made with patient: Yes Patient identified by name and date of . Discussed care with patient Are you experiencing any new or worsening symptoms you need to talk about today? No Disease Specific Do you check your blood pressure at home? Yes, Enter readings: 120's/70's Do you have new or worsening shortness of breath with activity? No Do you feel like you are dehydrated for any reason, including not being able to eat or drink normally, or having less urine/much darker urine than normal for you? No Do you check your daily weight at home? No and Do you have new or worsening cough? No Do you have new or worsening wheezing? No Do you need to use your rescue (Albuterol) inhaler or nebulizer more often than normal? 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 Routed to: No Action Needed ALLEN Education Provided this Outreach: No Brooke Rao RN February 21, 2024 3:38 PM documented in this encounterKet[facility]06-10-2024 History of Present illness Narrative* Brooke Rao RN - 01/22/2024 3:44 PM EDT CDM Telephonic Outreach Provider Action/FYI -ckd, copd, dm, htn -11/04-g,f,a,s -Instructed patient on High Blood Pressure - When to Seek Emergency Care Brooke Rao RN January 22, 2024 3:48 PM Contacted for: Routine Telephonic Outreach Contact made with patient: Yes Patient identified by name and date of . Discussed care with patient Are you experiencing any new or worsening symptoms you need to talk about today? No Disease Specific Do you check your blood pressure at home? Yes, Enter readings: 129/72 Do you have new or worsening shortness of breath with activity? No Do you feel like you are dehydrated for any reason, including not being able to eat or drink normally, or having less urine/much darker urine than normal for you? No Do you check your daily weight at home? No and Do you have new or worsening cough? No Do you have new or worsening wheezing? No Do you need to use your rescue (Albuterol) inhaler or nebulizer more often than normal? 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 Routed to: No Action Needed ALLEN Education Provided this Outreach: No Brooke Rao RN January 22, 2024 3:47 PM documented in this encounterK[facility]05-15-2024 History of Present illness Narrative* Brooke Rao RN - 12/27/2023 10:36 AM EDT [facility] Telephonic Outreach Provider Action/FYI -ckd, copd, dm, htn -11/04-g,f,a,s -Instructed patient on COPD Action Plan/Zones, also sent to [facility] Patient denies any questions, concerns, or needs. Reviewed upcoming appointments. Contacted for: Routine Telephonic Outreach Contact made with patient: Yes Patient identified by name and date of . Discussed care with patient Are you experiencing any new or worsening symptoms you need to talk about today? No Disease Specific Do you check your blood pressure at home? Yes, Enter readings: 129/58 Do you have new or worsening shortness of breath with activity? No Do you feel like you are dehydrated for any reason, including not being able to eat or drink normally, or having less urine/much darker urine than normal for you? No Do you check your daily weight at home? No and Do you have new or worsening cough? No Do you have new or worsening wheezing? No Do you need to use your rescue (Albuterol) inhaler or nebulizer more often than normal? 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 Routed to: No Action Needed ALLEN Education Provided this Outreach: No Brooke Rao RN December 27, 2023 10:43 AM documented in this encounterKet[facility]04-30-2024 Instructions* Patient Instructions* Khushboo Stokes, CONTACT LENS FITTER - 12/12/2023 9:49 AM EDT Screening schedule The following prevention plan is recommended: Alpha-1 Antitrypsin Deficiency Screening Never done Lung Cancer Screening Never done Mammogram Screening due on 08/13/2021 Dilated Retinal Exam due on 01/12/2022 Hemoglobin/Hematocrit due on 07/20/2023 Urine Albumin:Creatinine Ratio due on 07/25/2023 Advance Directive Discussion due on 08/14/2023 Covid-19 Vaccine( season) due on 10/12/2023 WHAT YOU CAN DO TO PREVENT FALLS Many falls can be prevented. By making some changes, you can lower your chances of falling. Four things YOU can do to prevent falls for you* and your caregiver 1. Begin a regular exercise program Exercise is one of the most important ways to lower your chances of falling. It makes you stronger and helps you feel better. Exercises that improve balance and coordination (like [place]) are the most helpful. Lack of exercise leads to weakness and increases your chances of falling. Ask your doctor or health care provider about the best type of exercise program for you. 2. Have your health care provider review your medicines Have your doctor or pharmacist review all the medicines you take, even ynge-gmg-vfcwhwe medicines. As you get older, the way medicines work in your body can change. Some medicines, or combinations of medicines, can make you sleepy or dizzy andcan cause you to fall. 3. Have your vision checked Have your eyes checked by an eye doctor at least once a year. You may be wearing the wrong glasses or have a condition like glaucoma or cataracts that limits your vision. Poor vision can increase your chances of falling. 4. Make your home safer About half of all falls happen at home. To make your home safer: Remove things you can trip over (like papers, books, clothes, and shoes) from stairs and places where you walk. Remove small throw rugs or use double-sided tape to keep the rugs from slipping. Keep items you use often in cabinets you can reach easily without using a step stool. Have grab bars put in next to your toilet and in the tub or shower. Use non-slip mats in the bathtub and on shower floors. Improve the lighting in your home. As you get older, you need brighter lights to see well. Hang light-weight curtains or shades to reduce glare. Have handrails and lights put in on all staircases. Wear shoes both inside and outside the house. Avoid going barefoot or wearing slippers. For more information, contact: Centers for Disease Control and Prevention www.cdc.gov/injury * This information may not apply if you have certain medical conditions. documented in this encounterKet[facility]04-30-2024 History of Present illness Narrative* Sherri Davalos MD - 12/12/2023 9:40 AM EDT Images from the original note were not included. Zoraida Barth is a 73 year old female here for a Medicare wellness visit. Medicare Health Risk Assessment General Health Good Exercise: Minutes/Day 90 min Exercise: Days/Week 2 days Alcohol: Daily Use Monthly or less Alcohol: Drinks/Day 1 or 2 Alcohol: 6 or more drinks Never Feel off balance Yes (Uses cane. This helps with her balance) Concerns: Teeth/Dentures Yes (Has false teeth which is interferred with by wisdom tooth) Concerns: Sexual function No Troubled by feelings Anxious; Stressed; Angry; Irritable Frequency: Eating healthy diet Nearly every day ADLs requiring help Sitting or standing; Walking Safety precautions in home/vehicle No (no grab bars in the bathroom) Smoke, vape, chews tobacco Yes, but I'm not ready to quit Difficulty hearing No Difficulty seeing Yes (cataracts. Not wearing her typical glasses today.) Current Providers Specialists: Outside specialists seen: Dr Thompson-cardiology , Dr Lizeth Sol-optho. Dr. Velasco-neurology Medical/Family history review Reviewed and updated problem list, medical/surgical/family/social history, medications, and allergies. Opioid use review Opioid Medications (last 90 days) No data to display Depression screening Depression Screening PHQ-2 Score 12/12/2023 0 Depression screening tool completed and reviewed. Based on score and interview, patient is not at risk for depression. Screening tool discussed with patient, and I recommended no further interventionat this time. Cognitive screening Mini Cog Score: 4 Cognitive screening reviewed and No further action needed (score 3-5). Functional Observation Was the patient's Timed Up & Go test unsteady or ? 12 seconds? No Advance Care Planning Patient did not wish or was not able to name a surrogate decision maker or provide an advance care plan Patient has Living will and DPOA at home. Will bring in a copy for our records. FULL CODE. Measurements BP 120/62 Pulse 65 Resp 18 Wt 211 lb 9.6 oz (96.0kg) SpO2 94% Vision Screening: Right: 20/20 Left: 20/ 40 Both: Latest Ref Rng 09/06/2023 Protein, Total 6.3 - 8.0 g/dL 7.3 Albumin 3.9 - 4.9 g/dL 4.3 Calcium 8.5 - 10.2 mg/dL 9.6 Bilirubin, Total 0.2 - 1.3 mg/dL <0.2 (L) Alkaline Phosphatase 34 - 123 U/L 71 AST 13 - 35 U/L 17 ALT 7 - 38 U/L 7 Glucose 74 - 99 mg/dL 119 (H) BUN 7 - 21 mg/dL 21 Creatinine 0.58 - 0.96 mg/dL 1.14 (H) Sodium 136 - 144 mmol/L 143 Potassium 3.7 - 5.1 mmol/L 4.8 Chloride 97 - 105 mmol/L 107 (H) CO2 22 - 30 mmol/L 24 Anion Gap 9 - 18 mmol/L 12 eGFR >=60 mL/min/1.73m 52 (L) Cholesterol, Total <200 mg/dL 289 (H) Triglyceride <150 mg/dL 170 (H) HDL Cholesterol >39 mg/dL 37 (L) Non HDL Cholesterol <130 mg/dL 252 (H) Fasting Time hrs 12 VLDL Cholesterol <30 mg/dL 34 (H) TC:HDL Ratio <5.10 7.81 (H) LDL Cholesterol <100 mg/dL 218 (H) LDL:HDL Ratio <2.54 5.89 (H) Hemoglobin A1C 4.3 - 5.6 % 6.5 (H) Estimated Average Glucose mg/dL 140 ASSESSMENT/PLAN: 1. Medicare annual wellness visit, subsequent - ICD9: V70.0, ICD10: Z00.00 (primary diagnosis) Medicare annual wellness visit, subsequent (Z00.00) - Counseled on healthy diet and regular exercise - Fall avoidance information provided - Personalized prevention plan provided - Discussed need for and benefit of weight loss. BMI 38.09 kg/(m^2) - Smoking cessation encouraged; discussed risks to health and quitting strategies. Patient is not ready to quit - CONSULT LUNG CANCER SCREENING CLINIC 2. Essential hypertension - ICD9: 401.9, ICD10: I10 - Controlled - Continue current medications - Recommend home blood pressure monitoring, to bring results to next visit - Encouraged sodium restriction, DASH or Mediterranean diet - Recommend regular aerobic exercise 3. Screening for lung cancer - ICD9: V76.0, ICD10: Z12.2 Consult lung cancer screening clinic for yearly low dose CT chest. 4. Tobacco use disorder - ICD9: 305.1, ICD10: F17.200 - Cessation encouraged. - Physiologic and physical aspects of tobacco addiction as well as strategies for quitting were discussed. - Counseling was given focusing on the harmful effects of this addiction especially given the patient's medical condition(s) which will be worsened because of the chemicals in tobacco. 5. Encounter for immunization - ICD9: V03.89, ICD10: Z23 - PFIZER-BION[employer] COVID-19 VACCINE ( SEASON) AGE 12+ YR 6. Body mass index (BMI) 40.0-44.9, adult (HCC) - ICD9: V85.41, ICD10: Z68.41 Stable - Behavioral intervention Sherri Davalos MD documented in this encounterK[facility] History of Present illness Narrative* Fatuma Yang, PT - 12/07/2023 11:02 AM EDT Images from the original note were not included. Episode Visit Count: 7 Therapist That Will Accept/Oversee The Plan Of Care: Fatuma Yang Start of Care Date: 11/02/23 Onset Date: 10/16/23 Plan of Care Certification Date: 11/02/23 Next Certification Due Date: 12/07/23 REHABILITATION AND SPORTS THERAPY PHYSICAL THERAPY DISCONTINUANCE OF CARE PLAN OF CARE UPDATE: Assessment: Zoraida Levi Lary is discontinued from Physical Therapy services due to goal achievement.. Patient was seen for 7 visits from Start of Care Date: 11/02/23 to 12/07/2023 and treatment included:Therapeutic exercise, Therapeutic activities, Self-prison management, and Gait training. Goals for Episode of Care: created on 11/02/23 through 12/14/23 Goals updated on 12/07/2023. [place] in home exercise program. -- MET Patient will decrease pain rating by 2 points to meet minimal clinical important difference for numeric pain rating scale. -- MET Perform ambulation community distances with AD with decreased report of symptoms/pain in 6 weeks. -- MET Perform sit <> stand transfers without pain. -- MET Improve postural awareness. -- MET Normal gait. -- MET Patient will ascend and descend x 4 6" steps with rail. with straight cane Right with modified independence and safe technique demonstrating step to pattern. -- MET SUBJECTIVE: Pt. reports that the exercise WAD IMPREGNATOR gave her for L hip tightness is very effective. Pt. says that she is able to do a lot more. She is able to stand to cook and complete her dishes. Pt. is also excited to report that she is able to stand from a chair and walk briskly from the parking lot into clinic without pain.. Patient Goals: wash all her dishes without sitting down Functional Limitations: walking, walking in the community, stair negotiation, bed mobility, weight bearing, cleaning, cooking, dressing, grooming, physical activities, bending, walking in the house, rising from a chair, standing, sitting (hip abd) Pain: Pain Pain Level: 1 Pain Location: Low Back/Lumbar Spine- Midline Description: Aching Post Treatment Pain Post Treatment Pain Location: Back PROMIS Scales 12/05/2023 11/02/2023 04/13/2023 Higher is Better Phys Func - Score 40 (mild dysfunction) 36 (moderate dysfunction) 38 (moderate dysfunction) Phys Func - Percentile 16 8 12 Self-Eff Symptom - Score 47 (Average) 40 (Average) 44 (Average) Self-Eff Symptom - Percentile 38 16 27 T-scores: mean of general population = 50. 5 points is clinically meaningfully difference Percentiles provide an indication of how the patient's score ranks in relation to the general population. Higher percentile rankings indicate better function/quality of life. 50th percentile is the average of the general population and indicates half of respondents had a worse score. OBJECTIVE MEASURES WITH LEVEL OF FUNCTION: Lumbar Spine AROM Lumbar Flexion: Normal Lumbar Extension: Normal Lumbar R Side [place]: Normal Lumbar L Side [place]: Normal Lumbar R Side-Bend: Moderate limitation Lumbar L Side-Bend: Moderate limitation Lumbar R Rotation: Normal Lumbar L Rotation: Normal Gait Gait: Modified Independent Gait Distance (feet): 200' Gait Device: Cane Gait Deviations: General Deviations Gait Observation: requires no cues to heel strike, reduce toe push off bilateral LE but this improves with cues Stairs: Independent Stairs: asecends and descends without UE support and with reciprocal pattern TREATMENT: Therapeutic Exercise: 1: seated lumbar flexion 4x10 (improved lumbar flexion AROM observed throughout the sets of 10) 2: Supine hip flexor stretch off edge of table 3x30 seconds 3: seated TA activation 2x10, 3 seconds each 4: hook lying pelvic rotations 2x15 5: hook lying B hip adduction 2x15 6: supine glute stretch 3x30 each side Skilled Intervention: Patient was educated in proper exercise technique and purpose for exercises. Skilled judgment was used in selection of appropriate interventions. Correct performance of therapeutic exercises was facilitated with verbal, visual, and tactile cuing. Educated patient on rationale for performing exercises in regards to decreasing fatigue , increase ease of ADL, and ROM and function . Patient education as noted. Gait Training: Distance (feet): 200 Gait Cues: toe push off - improves Assistive Device: cane Assist Level: mod indep Stair Training: asecends and descends without UE support and with reciprocal pattern. 6" steps x4 4x trials Skilled Intervention: Patient was provided independence during pre-gait/gait training to prevent falls and insure safety. Facilitated proper gait cycle with the use of verbal and visual cues for correction of gait deviations identified in the objective section above. Self-Senior Living Management: 1: discussed using the HEP to reduce her pain the days she has increased pain 2: discussed ADLs and breaking large tasks into smaller tasks Skilled Intervention: Skilled judgment in the selection of proper modification for activity of daily living/home management based on clinical presentation, deficits, and needs. Reviewed patient specific diagnosis in relation to activities of daily living/home management. Activity progression based on professional judgement. Reviewed and educated patient on additions/changes for home program as noted above with an (*). Billing Therapeutic Exercise Treatment Minutes: 25 Self-Care/Home Management Treatment Minutes: 5 Gait Training Treatment Minutes: 10 Skilled Treatment Time Minutes (timed and untimed codes): 40 Total Session Time (minutes): 40 Session Start Time : 1100 Session Stop Time : 1140 Fatuma Yang PT documented in this encounterK[facility]04-23-[facility]24 History of Present illness Narrative* Michelle Lynch PTA - 12/05/2023 10:51 AM EDT Program_ID:[id number] Access Code: [email or web address] URL: [email or web address] Date: 12-05-2023 Prepared By: Fatuma Yang Program Notes Exercises - Supine Single Knee to Chest Stretch - 2 x daily - 7 x weekly - 3 sets - 1 reps - Supine Double Knee to Chest - 2 x daily - 7 x weekly - 3 sets - 1 reps - Supine Lower Trunk Rotation - 2 x daily - 7 x weekly - 4 sets - 20 reps - Standing Anti-Rotation Press with Anchored Resistance - 1-2 x daily - 7 x weekly - 2 sets - 10 reps * Fatuma Yang PT - 12/05/2023 10:20 AM EDT Episode Visit Count: 6 Therapist That Will Accept/Oversee The Plan Of Care: Fatuma Yang Start of Care Date: 11/02/23 Onset Date: 10/16/23 Plan of Care Certification Date: 11/02/23 Next Certification Due Date: 12/07/23 Patient Identified by Name and Date of : Yes REHABILITATION AND SPORTS THERAPY PHYSICAL THERAPY TREATMENT NOTE ASSESSMENT: Zoraida Barth tolerated the session with fatigue and decreased symptoms. She demonstrated improvements in core strengthening in sitting with decrease in LBP. The patient will continue to benefit from ongoing skilled physical therapy to progress toward set goals. PLAN FOR NEXT VISIT: Asses response to core strengthening and continue as tolerated SUBJECTIVE: Pt reports that she is doing okay today. Pt states that her back is doing su much better. She still some areas of pain, more so in her anterior thigh and hip (2/10). Muscle relaxers taken as needed, 1-2 days between having to take them. She has also cut back on her Tylenol. She has incorported more strengthening exercises that she was previously given. Pt states that she has been gardening and her back has been feeling okay with that, stops when she starts to feel the discomfort. Pt states being able to get out of bed with ease for the first time this morning. Pain: Pain Pain Level: 2 Pain Location: Hip - Left, Buttocks - Left, Low Back/Lumbar Spine - Left Description: Aching Post Treatment Pain Post Treatment Pain Level: 0 Post Treatment Pain Location: Back Post Treatment Symptoms: 0 Post Treatment Pain Location 2: Hip - Left OBJECTIVE MEASURES WITH LEVEL OF FUNCTION: Improved posture with walking. TREATMENT: Therapeutic Exercise: 1: Seated,repeated lumbar flexion x10 2: Supine hip flexor stretch off edge of table 3x30 seconds 3: Seated isometric abdominals x15 with 2-3 second holds 4: Seated iso abs with alt LE marching 2x15 B 5: Seated iso abs alt UE with alt LE marching 2x10 B 6: *Seated Pallof's press with pink theraband 2x10 each direction Skilled Intervention: Patient was educated in proper exercise technique and purpose for exercises. Reviewed and educated patient on additions/changes for home exercise program as above (*). Skilled judgment was used in selection of appropriate interventions. Provided written instruction for home exercise program to facilitate proper performance and compliance. Correct performance of therapeutic exercises was facilitated with verbal and visual cuing. Billing Therapeutic Exercise Treatment Minutes: 39 Skilled Treatment Time Minutes (timed and untimed codes): 39 Total Session Time (minutes): 39 Session Start Time : 1016 Session Stop Time : 1055 ENRIQUE De Anda PT documented in this encounterK[facility]04-17-2024 History of Present illness Narrative* Brooke Rao RN - 11/29/2023 1:03 PM EDT CDM Telephonic Outreach Provider Action/FYI -ckd, copd, dm, htn -rash on chest since the weekend, itchy, out working in flower bed -has used benadryl and benadryl cream on it -patient declined appointment with PCP or virtualist. Patient has appointment with PCP 12/12/2023 -hip pain has improved Patient denies any questions, concerns, or needs. Reviewed upcoming appointments. Contacted for: Routine Telephonic Outreach Contact made with patient: Yes Patient identified by name and date of . Discussed care with patient Are you experiencing any new or worsening symptoms you need to talk about today? No Disease Specific Do you check your blood pressure at home? Yes, Enter readings: 120's Do you have new or worsening shortness of breath with activity? No Do you feel like you are dehydrated for any reason, including not being able to eat or drink normally, or having less urine/much darker urine than normal for you? No Do you check your daily weight at home? No and Do you have new or worsening cough? No Do you have new or worsening wheezing? No Do you need to use your rescue (Albuterol) inhaler or nebulizer more often than normal? 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 Routed to: No Action Needed ALLEN Education Provided this Outreach: No Brooke Rao RN November 29, 2023 1:07 PM documented in this encounterK[facility]04-11-2024 Miscellaneous Notes* Telephone Encounter - Mariella Cardona LPN - 11/23/2023 11:42 AM EDT Patient has been identified by name and date of : Yes, Patient phones for refill(s): Requested Prescriptions Pending Prescriptions Disp Refills cyclobenzaprine (FLEXERIL) 5 mg tablet 60 tablet 0 Sig: Take 1 tablet by mouth two times a day as needed for muscle spasm (Pain). Date of last office visit in primary care: 10/30/2023 Date of next office visit in primary care: 12/12/2023 Please advise. Thank you. Mariella Cardona LPN. documented in this encounterK[facility]04-11-2024 History of Present illness Narrative* Fatuma Yang, PT - 11/23/2023 9:33 AM EDT Episode Visit Count: 5 Therapist That Will Accept/Oversee The Plan Of Care: Fatuma Yang Start of Care Date: 11/02/23 Onset Date: 10/16/23 Plan of Care Certification Date: 11/02/23 Next Certification Due Date: 12/07/23 REHABILITATION AND SPORTS THERAPY PHYSICAL THERAPY TREATMENT NOTE ASSESSMENT: Zoraida Barth tolerated the session with increased symptoms. She demonstrated improvements in symptom intensity which reduced between sets of seated lumbar flexion AROM. The patient will continue to benefit from ongoing skilled physical therapy to progress toward set goals. PLAN FOR NEXT VISIT: Continue flexion directional preference based exercises to reduce symptoms, and TA stabilization strengthening in positions as tolerated SUBJECTIVE: Pt. reports that she is not having a good day. She went to bed at 23:30 last night and has been up since 12:30 this morning. Pt. has taken a muscle relaxer. Pt. reports that she is doing the exercises. When asked how they are going she says they are not painful but symptoms return "not long" after. Pain: Pain Pain Level: 9 Pain Location: Hip - Left, Buttocks - Left, Low Back/Lumbar Spine - Left Description: Aching Post Treatment Pain Post Treatment Pain Level: 7 Post Treatment Pain Location: Back Post Treatment Symptoms: 0 Post Treatment Pain Location 2: Hip - Left OBJECTIVE MEASURES WITH LEVEL OF FUNCTION: TREATMENT: Therapeutic Exercise: 1: seated lumbar flexion 4x10 -- substanatial time required to complete (pain reduced from 9 to 7/10 after first seat which eventually reduced to a "low 7/10" per pt. report) 2: sated sciatic nerve glides 4x10 each side (towel roll behind the low back) 3: seated B hip adduction 4x15 with pillow between the knees Skilled Intervention: Patient was educated in proper exercise technique and purpose for exercises. Skilled judgment was used in selection of appropriate interventions. Correct performance of therapeutic exercises was facilitated with verbal, visual, and tactile cuing. Educated patient on rationale for performing exercises in regards to decreasing fatigue , increase ease of ADL, and ROM and function . Patient education as noted. Billing Therapeutic Exercise Treatment Minutes: 40 Skilled Treatment Time Minutes (timed and untimed codes): 40 Total Session Time (minutes): 40 Session Start Time : 927 Session Stop Time : 1007 Fatuma Yang PT documented in this encounterK[facility]04-08-2024 History of Present illness Narrative* Fatuma Yang, PT - 11/20/2023 10:07 AM EDT Episode Visit Count: 4 Therapist That Will Accept/Oversee The Plan Of Care: Fatuma Yang Start of Care Date: 11/02/23 Onset Date: 10/16/23 Plan of Care Certification Date: 11/02/23 Next Certification Due Date: 12/07/23 REHABILITATION AND SPORTS THERAPY PHYSICAL THERAPY TREATMENT NOTE ASSESSMENT: Zoraida Barth tolerated the session with increased symptoms. She demonstrated difficulty with SCiFit stepper warm upa initially but was able to tolerate better once advised to ease into LE ROM and toshia of the exercise. The patient will continue to benefit from ongoing skilled physical therapy to progress toward set goals. PLAN FOR NEXT VISIT: Continue TA stabilization hook lying and seated. SUBJECTIVE: Pt. reports increased pain today due to watching her grandchildren over the weekend. This required a lot of movement. Pt. did not do her HEP due to fear of irritating the low back. She took muscle relaxers 2 hours ago and she took 2/day over the weekend. Pain: Pain Pain Level: 5 Pain Location: Hip - Left, Buttocks - Left, Low Back/Lumbar Spine - Left Description: Aching Post Treatment Pain Post Treatment Pain Level: 1 Post Treatment Pain Location: Back Post Treatment Symptoms: 0 Post Treatment Pain Location 2: Hip - Left OBJECTIVE MEASURES WITH LEVEL OF FUNCTION: TREATMENT: Therapeutic Exercise: 1: SciFIt seat 11, level 2, 1:1 throughout 5 min. subjective collected 2: hook lying pelvic rotation 4x15 3: single KTC stretch 3x30 sec each side 4: hook lying TA activation with alt LE marches 4x30 sec 5: TA activation hook lying with alt LE slides outs 4 x30 sec ("this is a nice one, I can feel stretching but not pain.") Skilled Intervention: Patient was educated in proper exercise technique and purpose for exercises. Reviewed and educated patient on additions/changes for home exercise program as above (*). Skilled judgment was used in selection of appropriate interventions. Provided written instruction for home exercise program to facilitate proper performance and compliance. Correct performance of therapeutic exercises was facilitated with verbal, visual, and tactile cuing. Educated patient on rationale for performing exercises in regards to decreasing fatigue , increase ease of ADL, and ROM and function . Patient education as noted. Self-Senior Living Management: 1: ecnouraged trying the HEP exercises and then dc only if increased pain is experienced. Otherwise, HEP exercises are encouraged when pt. is having pain in order to maintain ROM or reduce painl 2: discussed gradually increase in intensity as well as ROM with HEP. 3: discussed the reason for using the BUE for PROM of the hip rather than active hip flexion with KTC stretch to avoid overuse of the hip flexors and to allow LB stretching Skilled Intervention: Skilled judgment in the selection of proper modification for activity of daily living/home management based on clinical presentation, deficits, and needs. Provided written instruction for activities of daily living techniques to facilitate proper performance and compliance. Reviewed patient specific diagnosis in relation to activities of daily living/home management. Activity progression based on professional judgement. Reviewed and educated patient on additions/changes for home program as noted above with an (*). Billing Therapeutic Exercise Treatment Minutes: 30 Self-Care/Home Management Treatment Minutes: 10 Skilled Treatment Time Minutes (timed and untimed codes): 40 Total Session Time (minutes): 40 Session Start Time : 1007 Session Stop Time : 1047 Fatuma Yang PT documented in this encounterKettering [facility]04-04-2024 History of Present illness Narrative* Fatuma Yang PT - 11/16/2023 10:18 AM EDT Episode Visit Count: 3 Therapist That Will Accept/Oversee The Plan Of Care: Fatuma Yang Start of Care Date: 11/02/23 Onset Date: 10/16/23 Plan of Care Certification Date: 11/02/23 Next Certification Due Date: 12/07/23 Patient Identified by Name and Date of : Yes REHABILITATION AND SPORTS THERAPY PHYSICAL THERAPY TREATMENT NOTE ASSESSMENT: Zoraida Barth tolerated the session with decreased symptoms. She demonstrated improvements in lumbar flexibility with seated stretches. The patient will continue to benefit from ongoing skilled physical therapy to progress toward set goals. PLAN FOR NEXT VISIT: Asses response to seated exercsies for HEP. Continue with core and hip strenghtening with flexion directional preference. SUBJECTIVE: Pt reports that she is sore today. Pt reports that she did not take her Tylenol today. Catching in the hip is getting better. Pt states more mobility in her L hip. Pain: Pain Pain Level: 2 Pain Location: Hip - Left, Buttocks - Left, Low Back/Lumbar Spine - Left Description: Aching Post Treatment Pain Post Treatment Pain Level: Better Post Treatment Pain Location: Back Post Treatment Symptoms: better Post Treatment Pain Location 2: Hip - Left OBJECTIVE MEASURES WITH LEVEL OF FUNCTION: Increased tightness in L piriformis compared to R. TREATMENT: Therapeutic Exercise: 1: Seated, repeated lumbar flexion 2x10 2: Seated lumbar flexion with side bend roll outs on physioball 2x5 B 3: *Seated pirifromis stretch 2x30 seconds (started cramping in L posterior thigh) 4: *Seated isometric abdominals x15 with 2-3 second holds Skilled Intervention: Patient was educated in proper exercise technique and purpose for exercises. Reviewed and educated patient on additions/changes for home exercise program as above (*). Skilled judgment was used in selection of appropriate interventions. Correct performance of therapeutic exercises was facilitated with verbal and visual cuing. Self-Senior Living Management: 1: Lumbar towel roll education with use with sitting for improved posture. Skilled Intervention: Skilled judgment in the selection of proper modification for activity of daily living/home management based on clinical presentation, deficits, and needs. Billing Therapeutic Exercise Treatment Minutes: 40 Self-Care/Home Management Treatment Minutes: 2 Skilled Treatment Time Minutes (timed and untimed codes): 42 Total Session Time (minutes): 42 Session Start Time : 1015 Session Stop Time : 1057 ENRIQUE De Anda PT documented [facility] History of Present illness Narrative* Fatuma Yang PT - 11/14/2023 3:17 PM EDT Program_ID:[id number] Access Code: [email or web address] URL: [email or web address] Date: 11-14-2023 Prepared By: Fatuma Yang Program Notes Exercises - Supine Single Knee to Chest Stretch - 2 x daily - 7 x weekly - 3 sets - 1 reps - Supine Double Knee to Chest - 2 x daily - 7 x weekly - 3 sets - 1 reps - Supine Lower Trunk Rotation - 2 x daily - 7 x weekly - 4 sets - 20 reps * Fatuma Yang, PT - 11/14/2023 3:02 PM EDT Episode Visit Count: 2 Therapist That Will Accept/Oversee The Plan Of Care: Fatuma Yang Start of Care Date: 11/02/23 Onset Date: 10/16/23 Plan of Care Certification Date: 11/02/23 Next Certification Due Date: 12/07/23 REHABILITATION AND SPORTS THERAPY PHYSICAL THERAPY TREATMENT NOTE ASSESSMENT: Zoraida Barth tolerated the session with decreased symptoms. She demonstrated improvements in transfers, gait, lumbar, and hip mobility as compared to previous visit. The patient will continue to benefit from ongoing skilled physical therapy to progress toward set goals. PLAN FOR NEXT VISIT: seated hip and low back stretching, hook lying or seated core stabilization strengthening SUBJECTIVE: Pt. reports much improvement. She presents without wc. She uses a SC and amb into clinic with mod Indep. She no longer gets catching in the hip. Pain: Pain Pain Level: 2 Pain Location: Hip - Left, Buttocks - Left Frequency: With movement Additional Pain Information : Location 2 Pain Level 2: 2 Pain Location 2: Back Post Treatment Pain Post Treatment Pain Level: 2 Post Treatment Pain Location: Back Post Treatment Symptoms: 0 Post Treatment Pain Location 2: Hip - Left OBJECTIVE MEASURES WITH LEVEL OF FUNCTION: TREATMENT: Therapeutic Exercise: 1: *Access Code: [email or web address] URL: [email or web address] Date: 11/14/2023 Prepared by: Fatuma Olivares Exercises - Supine Single Knee to Chest Stretch - 2 x daily - 7 x weekly - 3 sets- 1 reps - 30 hold - Supine Double Knee to Chest - 2 x daily - 7 x weekly - 3 sets - 1 reps - 30 hold - Supine Lower Trunk Rotation - 2 x daily - 7 x weekly - 4 sets - 20 reps - 1 hold 2: hook lying BLE hip flexion 3x20 55 cm physioball 3: piriformis stretch supine 3x30 sec each side Skilled Intervention: Patient was educated in proper exercise technique and purpose for exercises. Reviewed and educated patient on additions/changes for home exercise program as above (*). Skilled judgment was used in selection of appropriate interventions. Provided written instruction for home exercise program to facilitate proper performance and compliance. Correct performance of therapeutic exercises was facilitated with verbal, visual, and tactile cuing. Educated patient on rationale for performing exercises in regards to decreasing fatigue , increase ease of ADL, and ROM and function . Patient education as noted. Billing Therapeutic Exercise Treatment Minutes: 40 Skilled Treatment Time Minutes (timed and untimed codes): 40 Total Session Time (minutes): 40 Session Start Time : 1500 Session Stop Time : 1540 Fatuma Yang PT documented in this encounterK[facility]03-21-[facility] History of Present illness Narrative* Fatuma Yang PT - 11/02/2023 10:52 AM EDT Images from the original note were not included. Episode Visit Count: 1 Therapist That Will Accept/Oversee The Plan Of Care: Fatuma Yang Start of Care Date: 11/02/23 Onset Date: 10/16/23 Plan of Care Certification Date: 11/02/23 Next Certification Due Date: 12/07/23 Patient Identified by Name and Date of : Yes REHABILITATION AND SPORTS THERAPY PHYSICAL THERAPY EVALUATION PLAN OF CARE: Assessment: Zoraida Barth presents with diagnosis of acute hip pain, left that interferes with walking, walking in the community, stair negotiation, bed mobility, weight bearing, cleaning, cooking, dressing, grooming, physical activities, bending, walking in the house, rising from a chair, standing, sitting (hip abd) . She presents with impairments in ADL's, balance, flexibility, gait, independence in exercise, joint mobility, overall function, patient reported outcome measures, posture, range of motion, strength, stress management, symptom management, and tissue tenderness. PROMIS (Patient-Reported Outcomes Measurement Information System) scores were reviewed and identified as a rehabilitation concern. Prognosis for therapy is Fair due to: clinical presentation, coping skills, limited tolerance to activity . She will benefit from skilled therapy services to meet the goals established for this plan of care as noted below. Classification Low Back Pain Classification: Symptom Modulation Goals for Episode of Care: created on 11/02/23 through 12/14/23 [place] in home exercise program. Patient will decrease pain rating by 2 points to meet minimal clinical important difference for numeric pain rating scale. Perform ambulation community distances with AD with decreased report of symptoms/pain in 6 weeks. Perform sit <> stand transfers without pain. Improve postural awareness. Normal gait. Patient will ascend and descend x 4 6" steps with rail. with straight cane Right with modified independence and safe technique demonstrating step to pattern. Planned Interventions, Frequency, and Duration: Current Frequency: 2x/week Duration: 6 weeks Total Number of Visits Planned: 12 Planned Treatment Interventions: Therapeutic exercise (36649), Neuromuscular re- education (80196), Manual therapy (19684), Therapeutic activities (14830), Self- prison management (68378), Gait Training (32206) PLAN FOR NEXT VISIT: gait training. Transfer training. Assess hip mobility PROM if pt. able to tolerate supine Patient demonstrates good understanding of plan of care and treatment. The above goals and plan of care were discussed and agreed upon by patient/family. SUBJECTIVE: for hip pain that onset about 2 weeks ago. Pt. presents in w/c and states that she is not able to ambulate into the clinic requiring PT assistance into the clinic. Pt. did take tylenol before the visit. Pt. becomes tearful during subjective before physical exam. Pt. describes injury as stepping over a baby gate, but without a fall. Immediate onset of pain following this injury. Pt. reports hx of "off and on" hip pain prior to this incident. Pt. is using a cane and a crutch to move around at home. Functional Limitations: walking, walking in the community, stair negotiation, bed mobility, weight bearing, cleaning, cooking, dressing, grooming, physical activities, bending, walking in the house, rising from a chair, standing, sitting (hip abd) Prior Level of Function: Independent without limitations Relevant History Past Relevant Medical Conditions: Asthma, Cancer, Diabetes, Depression, Falls, Hypertension, COPD, Kidney Problems Hobbies / Interests: quilting, painting, crafting, cooking, gardening, reading Home Environment Equipment Owned: Cane, Shower Chair, Crutch(es) Transportation: Drives independently using foot controls/hand controls Intake Information: Prescription present Previous Treatment: Heat , Ice (tylenol) Falls Interview: No positive findings with falls interview Red Flags Vertebral Fracture Red Flags: Female, Age >70 Vertebral Fracture Clinical Reasoning: Proceed with caution due to the above (1- 2) risk factors Abdominal Aortic Aneurysm Clinical Reasoning: No identified risk factors. Cancer Red Flags: Age >50 or <20 Cancer Clinical Reasoning: Proceed with caution Infection Clinical Reasoning: No identified risk factors. Cauda Equina Syndrome Clinical Reasoning: No identified risk factors. Red Flags - Cervical Cancer Red Flags: Age >50 or <20 Cancer Clinical Reasoning: Proceed with caution Infection Clinical Reasoning: No identified risk factors. Spine History Symptoms Location at Onset: Back Symptoms Since Onset: Worsening Pain is Worse Always: On the Move Pain is Better Always: Rest Sleeping Position: Side lying left (feels better laying on the affected side) Sleep Affected by Pain: Pain awakens Pain: Pain Pain Level: 9 Pain Location: Hip - Left, Buttocks - Left Description: Shooting Frequency: With movement Additional Pain Information : Location 2 Post Treatment Pain Post Treatment Pain Location: Hip - Left Post Treatment Pain Location 2: Buttocks - Left PROMIS Scales 11/02/2023 04/13/2023 03/14/2023 Higher is Better Phys Func - Score 36 (moderate dysfunction) 38 (moderate dysfunction) 37 (moderate dysfunction) Phys Func - Percentile 8 12 10 Self-Eff Symptom - Score 40 (Average) 44 (Average) 38 (Low) Self-Eff Symptom - Percentile 16 27 12 T-scores: mean of general population = 50. 5 points is clinically meaningfully difference Percentiles provide an indication of how the patient's score ranks in relation to the general population. Higher percentile rankings indicate better function/quality of life. 50th percentile is the average of the general population and indicates half of respondents had a worse score. OBJECTIVE MEASURES WITH LEVEL OF FUNCTION: Posture / Alignment Posture: Slump Sitting Posture: Slump, Comments Sitting Posture Comments: cries out suddenly intermittently throughout subjective, even without active movement Sensation - Lower Extremity LE Light Touch Sensation: Grossly Intact Sensation - Lumbar Sensation: Grossly Intact Lumbar Spine AROM Lumbar Spine AROM Comments: limited exam due to very limited activity tolerance with sit <>stand LE AROM L Knee Extension: 0 Degrees Joint Mobility - Hip Hip Joint Mobility Comments: limited tolerance Functional Strength Functional Strength: Sit<>stand Sit/Stand: minAx1 with moderate to max cues Special Tests - Hip and Spine Special Test Comments: NT due to limited activity tolerance Balance Static Standing Balance: Comments Static Standing Balance Comments: normal stance x 1 min - CGA to SBA Education: Education Learning Preferences: Demonstration, Explanation, Performance, Printed Materials Barriers: Emotions, Acuity of Illness Learning/educational needs: Plan of Care, Home exercise program, Posture Education Provided: Yes, see treatment interventions for education provided Education Provided To: Patient Education Mode/Type: Demonstration, Explanation/Discussion, Literature/Printed Materials, Performance Response to Education/Teach Back: States/Identifies, Return Demonstration TREATMENT: PT Treatment Interventions: Self-Senior Living Management, Therapeutic Exercise Evaluation Therapeutic Exercise: 1: *Access Code: [email or web address] URL: [email or web address] Date: 11/02/2023 Prepared by: Fatuma Olivares Exercises - Supine Gluteal Sets - 2 x daily - 7 x weekly - 4 sets - 10 reps - 3 hold - Seated Long Arc Quad - 2 x daily - 7 x weekly - 4 sets - 10 reps - 1 hold - Sit to Stand with Counter Support - 2 x daily - 7 x weekly - 3 sets - 3 reps - 1 hold Skilled Intervention: Patient was educated in proper exercise technique and purpose for exercises. Skilled judgment was used in selection of appropriate interventions. Provided written instruction for home exercise program to facilitate proper performance and compliance. Correct performance of therapeutic exercises was facilitated with verbal, visual, and tactile cuing. Educated patient on rationale for performing exercises in regards to decreasing fatigue , includingbalance, increase ease of ADL, and ROM and function . Patient education as noted. Therapeutic Activity: 1: sit<> stand max cues for sequence and safety w/c <> FWW, minAx1 Skilled Intervention: Proper patient guarding to prevent falls/increase patient safety with minimalassistance to assist patient while performing sit <> stand w/c <> FWW Ensured patient safety with use of gait belt Moderate verbal cues for maintaining neutral spine alignment. Activity progression based on professional judgment. Assisted proper completion of task with verbal, visual, and tactile cueing and correction of abnormal movement patterns. Provided written instruction for home program to facilitate proper performance and compliance. Correct performance of home program was facilitated with verbal and visual cueing. Self-Senior Living Management: 1: suggested that pt. borrow or purchase a FWW due to amb at home with crutch and SC 2: discussed the importance of moving safely as opposed to prolonged immobility following an injury 3: discussed that pt. limitations with hip abd and difficulty with WB/amb is consistent with a muscular strain 4: advised continued compliance with physician medication and ice application 5: postural education seated and standing 6: picture of muscles that abduct the hip. Pt. wanted to know which muscle performs the action of moving the leg away to the side -- likely that pt. strained that muscle based on mechanism of injury limited hip abd ROM, pain with active movement, and difficulty with weight bearing. Skilled Intervention: Skilled judgment in the selection of proper modification for activity of daily living/home management based on clinical presentation, deficits, and needs. Provided written instruction for activities of daily living techniques to facilitate proper performance and compliance. Reviewed patient specific diagnosis in relation to activities of daily living/home management. Activity progression based on professional judgement. Moderate verbal cues for maintaining neutral spine alignment. Provided written instruction for home program to facilitate proper performance and compliance. Correct performance of home program was facilitated with verbal, visual, and tactile cueing. Billing * Evaluation Low Complexity: 1 Unit Therapeutic Exercise Treatment Minutes: 10 Therapeutic Activity Treatment Minutes: 5 Self-Care/Home Management Treatment Minutes: 10 Skilled Treatment Time Minutes (timed and untimed codes): 45 Total Session Time (minutes): 45 Session Start Time : 1013 Session Stop Time : 1058 Fatuma Yang PT * Fatuma Yang PT - 11/02/2023 10:44 AM EDT Program_ID:[id number] Access Code: [email or web address] URL: [email or web address] Date: 11-02-2023 Prepared By: Fatuma Yang Program Notes Exercises - Supine Gluteal Sets - 2 x daily - 7 x weekly - 4 sets - 10 reps - Seated Long Arc Quad - 2 x daily - 7 x weekly - 4 sets - 10 reps - Sit to Stand with Counter Support - 2 x daily - 7 x weekly - 3 sets - 3 reps documented in this encounterK[facility]-20-[facility] History of Present illness Narrative* Brooke Rao RN - 11/01/2023 1:26 PM EDT CDM Telephonic Outreach Provider Action/FYI -ckd, copd, dm, htn -completed ADL's and goals with patient -states she is doing well Patient denies any questions, concerns, or needs. Reviewed upcoming appointments. Contacted for: Routine Telephonic Outreach Contact made with patient: Yes Patient identified by name and date of . Discussed care with patient Are you experiencing any new or worsening symptoms you need to talk about today? No Disease Specific Do you check your blood pressure at home? Yes, Enter readings: 128/70 Do you have new or worsening shortness of breath with activity? No Do you feel like you are dehydrated for any reason, including not being able to eat or drink normally, or having less urine/much darker urine than normal for you? No Do you check your daily weight at home? No and Do you have new or worsening cough? No Do you have new or worsening wheezing? No Do you need to use your rescue (Albuterol) inhaler or nebulizer more often than normal? 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 Routed to: No Action Needed ALLEN Education Provided this Outreach: No Brooke Rao RN November 01, 2023 1:28 PM documented in this encounterK[facility]03-19-2024 Miscellaneous Notes* Telephone Encounter - Bella Malagon LPN - 10/31/2023 1:39 PM EDT Rec'd covermymeds PA for flexeril. Response is Zoraida Barth (Guerra: [id number]) Rx #: [id number] Need Help? Call us at Outcome Additional Information Required Available without authorization. The member is able to fill the requested drug at the pharmacy. If coverage is still needed or requesting prior to the expiration of a current authorization, a requestcan be made by sending a fax or calling the number on the back of the member's ID card. Drug Cyclobenzaprine HCl 5MG tablets [facility] cloud logo Form [employer] Medicare Electronic [place] Form (2017 [facility]) Original Claim Info [phone] PRECERT REQ BY ; USE COVERMYMEDS ORMD CALL FOR REVIEW DRUG REQUIRES PRIOR AUTHORIZATION documented in this encounterK[facility]03-19-2024 Miscellaneous Notes* Telephone Encounter - Alyce Koenig MA - 10/31/2023 11:15 AM EDT Pt notified of results via [employer]-Diversify Yourself. Alyce Koenig Ma * Telephone Encounter - Khushboo Stokes LPN - 10/30/2023 1:47 PM EDT Message left for patient to return call for result/recommendation update. * Telephone Encounter - Khushboo Stokes LPN - 10/30/2023 1:46 PM EDT ----- Message from Sherri Davalos MD sent at 10/30/2023 1:27 PM EDT ----- Left hip xray negative for fracture. Joint spaces are maintained. Mild arthritis change in lumbar spine. Continue treatment as discussed in office. documented in this encounterK[facility]03-18-2024 History of Present illness Narrative* Rubi Myrick RT(R) - 10/30/2023 11:40 AM EDT Radiology Service Progress Note PATIENT NAME: Zoraida Barth DATE OF SERVICE: October 30, 2023 TIME: 11:42 AM PATIENT IDENTITY VERIFICATION COMPLETED USING TWO (2) IDENTIFIERS: Name and Date of confirmedby patient verbally. FALL SCREENING: Has the patient had 2 falls in the last year or 1 fall with injury or currently using an Ambulatory Assistive Device (Walker, Cane, Wheelchair, Crutches, etc.)? No PATIENT GENDER DATA: Female. status: : No status: NO. PATIENT RELEVANT IMPLANT DATA REVIEWED: Yes PATIENT PRESENTS WITH AN IMPLANTABLE OR ATTACHED INFORMATION DIRECTOR: No RADIOLOGY DEPARTMENT: General X-ray: Exam(s) Completed: Pelvis X-Ray: Pelvis with Hip Left PERIPHERAL IV DATA: Not applicable SIGNED BY: RT Jennifer(Jacey) October 30, 2023 11:42 AM documented in this encounterK[facility]03-18-2024 History of Present illness Narrative* Sherri Davalos MD - 10/30/2023 11:11 AM EDT Chief Complaint Patient presents with: Left Hip Pain: Injured hip approx 2 weeks ago HPI Zoraida Barth is a 73 year old female who presents here today for Above Complaints. Patient complaining of left hip pain x 2 weeks after she got her right foot caught on a baby gait and had to wrench it free. Pain located over the posterior, lateral, and anterior hip. Described as constant aching pain with occasional sharp pain. Currently 8/10 with radiation down to her left santiago. Exacerbated with hip abduction, walking. Treating with rest, ibuprofen, tylenol, and heat which does help with her pain. Also improved with sleeping on her left side. Admits to limited abduction due to pain. Denies bruising, swelling, erythema, fever/chills. Using cane for ambulation. Denies head injury or LOC. Past medical history, appointments, medications, allergies reviewed. Previous Medical History PAST MEDICAL HISTORY Diagnosis Date Asthma See PFT 12/2020 CKD (chronic kidney disease), stage III (HCC) Coronary artery disease s/p PTCA with ALEXIS to RCA 04/27, 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 Delgado Non-rheumatic mitral regurgitation 10/03/2017 Onychomycosis Shingles Statin intolerance Tobacco use disorder Previous Surgical History PAST SURGICAL HISTORY Procedure Laterality Date ARTHROSCOPY KNEE DIAGNOSTIC W/WO SYNOVIAL BX SPX Arthroscopy, knee right LAPAROSCOPY SURG CHOLECYSTECTOMY 10/18/2017 Cholecystectomy, lap LIG/TRNSXJ FLP TUBE ABDL/VAG APPR UNI/BI Tubal ligation PAST SURGICAL HISTORY OF 1994 kidney stone extraction: cut ureter STENT - CORONARY 2012 TONSILLECTOMY HX TOTAL ABDOMINAL HYSTERECT W/WO RMVL TUBE OVARY 1991 Hysterectomy, THANG, BSO URETERAL STENT 1994 2nd surgery Family History FAMILY HISTORY Problem Relation Age of Onset Heart Mother Diabetes Mother Hypertension Mother other (unknown) Father Hypertension Sister Thyroid Sister Asthma Sister Skin Cancer Other 1st cousin, unsure of type other (horseshoe kidney) Son Patient Allergies ALLERGIES Allergen Reactions Metformin GI Upset Poison Rahel Extract Other: See Comments Severe rash Cyvuerp-Vhd-Ptf Red* Other: See Comments cholesterol medications cause liver pain Current Medications Current Outpatient Medications on File Prior to Visit Medication Sig propranolol (INDERAL) 20 mg tablet Take 20 mg by mouth two times a day. acetaminophen (TYLENOL) 500 mg tablet Take 1,000 mg by mouth every 8 hours as needed for pain. loratadine (CLARITIN) 10 mg tablet Take 10 mg by mouth once daily. As needed levothyroxine (SYNTHROID) 150 mcg tablet Take 1 tablet by mouth once daily. Take on empty stomach. For thyroid sertraline (ZOLOFT) 100 mg tablet Take 1 tablet by mouth once daily. lisinopril (ZESTRIL) 20 mg tablet Take 1 tablet by mouth two times a day. primidone (MYSOLINE) 50 mg tablet Take 2 tablets by mouth daily at bedtime. amLODIPine (NORVASC) 10 mg tablet Take 1 tablet by mouth once daily. hydroCHLOROthiazide 25 mg tablet Take 1 tablet by mouth every afternoon. blood sugar diagnostic (BLOOD GLUCOSE TEST) test strip Test blood sugar(s) 1 times daily. Dx: Type 2 DM - Uncontrolled E11.65 Insulin: No Blood-Glucose Meter monitoring kit Glucose Meter of Choice - Kit - Use once daily Dx: Type 2 DM - Uncontrolled ibuprofen (MOTRIN) 200 mg tablet Take 3 tablets by mouth every 6 hours as needed for Pain (Take with food.). aspirin, enteric coated (ASPIRIN, ENTERIC COATED) 81 mg EC tablet Take 81 mg by mouth once daily. NITROGLYCERIN BUCCAL Place between cheek and gum. albuterol HFA (VENTOLIN HFA) 90 mcg/actuation inhaler Inhale 2 Puffs as instructed every 4 hours asneeded. metoprolol succinate ER (TOPROL XL) 25 mg 24 hr tablet Take 0.5 tablets by mouth once daily. Lancets lancets Test blood sugar(s) 1 times daily. Dx: Type 2 DM - Uncontrolled Insulin: No No current facility-administered medications on file prior to visit. Social History Social History Tobacco Use Smoking status: Every Day Packs/day: 1.00 Years: 40.00 Additional pack years: 0.00 Total pack years: 40.00 Types: Cigarettes Start date: 08/14/1969 Smokeless tobacco: Never Substance Use Topics Alcohol use: No Comment: Rarely Drug use: No Review of Symptoms REVIEW OF SYSTEMS See HPI EXAM: BP 128/70 Pulse (!) 58 Resp 18 SpO2 98% General Appearance: Well appearing, alert, in no acute distress, well-hydrated, well nourished.. Skin: Skin color, texture, turgor normal, no suspicious rashes or lesions. Back:no pain to palpation of vertebrae, good flexion and extension, good range of motion, reflexes are 2+ and symmetric, motor and sensory appear to be normal, negative SLR test, no evidence of scoliosis. Mild TTP to left lumbar paraspinal muscles and posterior hip. HIP: Location: Left Redness: No. Warmth: No. Range of motion: Limited abduction due to pain, otherwise normal. Tenderness over trochanteric bursa: No Pain with movement: Yes. Health Maintenance List Alpha-1 Antitrypsin Deficiency Screening Never done Lung Cancer Screening Never done Mammogram Screening due on 08/13/2021 Dilated Retinal Exam due on 01/12/2022 Hemoglobin/Hematocrit due on 07/20/2023 Urine Albumin:Creatinine Ratio due on 07/25/2023 Advance Directive Discussion due on 08/14/2023 BP Controlled (<130/80) due on 09/28/2023 DTaP,Tdap,Td Vaccine(1 - Tdap) due on 09/12/2024 RSV Vaccine(1 - 1-dose 60+ series) due on 09/12/2024 Shingrix Vaccine(1 of 2) due on 09/12/2024 Diabetic Foot Exam due on 01/27/2024 HbA1C due on 03/06/2024 Colorectal Cancer Screening due on 06/24/2024 LDL Cholesterol due on 09/06/2024 Serum Creatinine due on 09/06/2024 Annual PCP Team Chronic Disease Visit due on 09/12/2024 Bone Density Screening Completed Spirometry Completed Influenza Vaccine Completed Hepatitis C Screening Completed Covid-19 Vaccine Completed Pneumococcal Vaccine: 65+ Completed ASSESSMENT/PLAN: 1. Acute hip pain, left - ICD9: 719.45, ICD10: M25.552 Possible gluteal strain vs sciatica vs fracture. Obtain imaging. Will treat with OTC tylenol, muscle relaxer as ordered, home exercises as given today, and refer to PT. Continue to use cane for ambulation. Red flags for re-assessment reviewed with patient in detail. - XR HIP GENERAL 3V PELV/AP/LAT LEFT - CONSULT TO PHYSICAL THERAPY Sherri Davalos MD documented in this encounterKettering Health [facility]03-01-2024 Miscellaneous Notes* Telephone Encounter - Paola Gregory MA - 10/13/2023 12:38 PM EST Called and spoke with patient, delivered message as written. She expressed understanding. * Telephone Encounter - Dean Dubois MD - 10/13/2023 12:06 PM EST Its definitely fine to continue taking primidone with propranolol. Propranolol is actually a bettertremor medication than metoprolol so she might notice some improvement. Its common to take primidone and propranolol together for tremor so hopefully things improve with this change. * Telephone Encounter - Paola Gregory MA - 10/13/2023 11:56 AM EST Spoke with patient. States her Director Park (Dr. Jaguar Thompson with [facility]) changed her Metoprolol to thePropranolol now (20mg twice daily). So, will she still need to continue the Primidone, given this change? * Telephone Encounter - Lance Manuel - 10/12/2023 3:39 PM EST Patients braze operator switched her beta juan j, she will no longer be taking the metroprolol. Patient is wondering if she should continue taking her mysoline with it. Please advise. documented in this encounterKettering Health [facility]02-28-2024 History of Present illness Narrative* Alejandra Ricks [facility] - 10/11/2023 1:00 PM EST Primary Care Pharmacy Visit CC (Reason for Consult): Comprehensive Medication Review Last Collaborating Provider Visit: 09/12/23 Zoraida Barth is a 73 year old female presenting for initial visit: This initial consult was conducted telephone call with the patient where the consult agreement was explained. The patient may decline or cancel the agreement at any time. After consideration, the patient consented to the pharmacy consult agreement and agreed to allow medications be collaboratively managed by a pharmacist. Interim Events: 09/12: last PCP visit; no med changes 10/05: patient had medication question; PharmD reached out as part of [employer] community outreach encounter; med review scheduled for today to assess if meds are contributed to sleepiness HPI: For the past 1+ years, she feels like she was getting tired and falling asleep quickly at inappropriate times. Tiredness increased over the past couple of months, thinks maybe before [place]? Has made various excuses but wondering if could be med related. Falls asleep quickly. Once she was sitting on the couch changing the channel and fell asleep with remote in her hand. Once was ready for buddhism, had 15 mins before she had to leave. She had a sinus headache and she started to rub her head. Next think she knew she woke up 45 mins later and missed buddhism. Will watch TV, seems like she blinksbut then realizes she fell asleep. Will have episodes anywhere from several times in 1 day to having 1 episode every 2-3 days. Has fallen asleep while driving >4 hours over 1 year ago, no issues since. Since then, she will asset recovery specialist if she feels like she is getting tired while driving. If muscle spasms are bad, she will take one of her son's muscle relaxers (takes once every 4-6 mo).She thinks it does help. Wakes up frequently at night, every few hours. Says her back muscles start to cramp up. Has back spasms every night. Has discussed with PCP in the past. Has tried PT, didn't help. Goes to bed [id number] PM and midnight, usually waking up around 1:30-3 AM. Goes back to sleep for another few hours. Sees neurology for essential tremor. He suggested switching metoprolol to propranolol but wanted tocardio's input. Patient's braze operator moved and she established with Dr. Thompson. This appt with Dr. Thompson was at the end of August, she didn't remember the name of propranolol but she plans to call Dr. Thompson to discuss. Takes a nap daily after lunch. Wondering if has sleep apnea? ROS: Patient denies CP, SOB, RAMIREZ, blurred vision, dizziness or lightheadedness Patient reports potential medication adverse effects - fatigue from meds? MEDICATIONS: Pill bottles are present. Adherence: denies missed doses. Pharmacy: [facility]- [id number] [place] [address] - [address] [facility] [phone] Rx coverage: Payor: GoodRx AND [employer] / Plan: [employer] MEDICARE ADVANTAGE HMO / Product Type: HMO / Organization system: keeps in original bottles ACTIVE PROBLEM LIST Coronary Artery Disease Involving [place] Coronary Artery of [place] Heart Without Angina Pectoris Essential Hypertension Hypothyroidism Mild Episode of Recurrent Major Depressive Disorder (Hcc) Stage 3a Chronic Kidney Disease (Hcc) Biliary Colic Hyperlipidemia Gallstones Stented Coronary Artery [place]orses[place] Kidney Non-Rheumatic Mitral Regurgitation Liver Cyst Tobacco Use Disorder Type 2 Diabetes Mellitus With Stage 3a Chronic Kidney Disease, Without Long-Term Current Use of Insulin (Hcc) Hypertensive Kidney Disease With Stage 3a Chronic Kidney Disease (Hcc) Mild Chronic Obstructive Pulmonary Disease (Hcc) Body Mass Index (Bmi) 40.0-44.9, Adult (Hcc) Chronic Bilateral Low Back Pain With Bilateral Sciatica Statin Intolerance Obesity, Class II, Bmi 35-39.9 Eye Abnormalities Drowsy PAST MEDICAL HISTORY Diagnosis Date Asthma See PFT 12/2020 CKD (chronic kidney disease), stage III (HCC) Coronary artery disease s/p PTCA with [facility] to RCA 04/27, 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 Delgado Non-rheumatic mitral regurgitation 10/03/2017 Onychomycosis Shingles Statin intolerance Tobacco use disorder Past medical history reviewed. ALLERGIES Allergen Reactions Metformin GI Upset Poison Rahel Extract Other: See Comments Severe rash Kujgtqi-Mrq-Wrm Red* Other: See Comments cholesterol medications cause liver pain Medication List Medication Directions Comments Action/Plan albuterol HFA (VENTOLIN HFA) 90 mcg/actuation inhaler Inhale 2 Puffs as instructed every 4 hours asneeded. Not using amLODIPine (NORVASC) 10 mg tablet Take 1 tablet by mouth once daily. Taking QAM Drowsiness and fatigue 1-5% per package insert aspirin, enteric coated (ASPIRIN, ENTERIC COATED) 81 mg EC tablet Take 81 mg by mouth once daily. Taking QAM Lethargy, frequency undefined hydroCHLOROthiazide 25 mg tablet Take 1 tablet by mouth every afternoon. Taking QAM (new med within the past 6-8 mo per patient) No tiredness ADEs listed per package insert ibuprofen (MOTRIN) 200 mg tablet Take 3 tablets by mouth every 6 hours as needed for Pain (Take with food.). Takes at night for back spasms before bed Drowsiness <1% per package insert levothyroxine (SYNTHROID) 150 mcg tablet Take 1 tablet by mouth once daily. Take on empty stomach. For thyroid Taking QAM Fatigue - frequency not defined lisinopril (ZESTRIL) 20 mg tablet Take 1 tablet by mouth two times a day. Taking BID No tiredness BRADEN listed in package insert metoprolol succinate ER (TOPROL XL) 25 mg 24 hr tablet Take 0.5 tablets by mouth once daily. Has trouble cutting pill in half, so has been taking 1 full tab every other day Can cause fatigue 1-10% per package insert NITROGLYCERIN BUCCAL Place between cheek and gum. Has for PRN use primidone (MYSOLINE) 50 mg tablet Take 2 tablets by mouth daily at bedtime. Taking qHS (dose was increased ~1 year ago); takes for essential tremors - thinks it helps "some"; managed by neurology Can cause drowsiness and fatigue (frequency not defined per package insert) sertraline (ZOLOFT) 100 mg tablet Take 1 tablet by mouth once daily. Taking QAM Can cause drowsiness and fatigue 10-11% per package insert Rx meds not listed in EPIC: none OTCs: - Tylenol #2 tabs (500mg tabs) PRN pain, alternates with ibuprofen for back spasms - Loperamide PRN diarrhea (last dose >1 mo ago) - Loratadine 10mg daily PRN Herbals: none Exam: Last 3 Encounter BP Readings: Date: BP: 09/12/2023 130/70 06/12/2023 122/58 06/05/2023 116/60 Wt: 99.1 kg (218 lb 6.4 oz) BMI: 39.31 kg/(m^2) LABS: Reviewed Lab Results Component Value Date HBA1C 6.5 09/06/2023 HBA1C 6.2 01/26/2023 HBA1C 6.2 05/20/2022 HBA1C 6.3 09/14/2021 HBA1C 6.6 03/12/2021 HBA1C 8.0 12/03/2020 CMP: Glucose 119 09/06/2023 BUN 21 09/06/2023 Creatinine 1.14 09/06/2023 Sodium 143 09/06/2023 Potassium 4.8 09/06/2023 Chloride 107 09/06/2023 CO2 24 09/06/2023 Protein, Total 7.3 09/06/2023 Albumin 4.3 09/06/2023 Calcium 9.6 09/06/2023 Alkaline Phosphatase 71 09/06/2023 Bilirubin, Total <0.2 09/06/2023 AST 17 09/06/2023 ALT 7 09/06/2023 No results found for: "GFR" Estimated Creatinine Clearance: 50.3 mL/min (A) (based on SCr of 1.14 mg/dL (H)). Lab Results Component Value Date CHOL 289 09/06/2023 CHOL 273 12/03/2020 LDL 218 09/06/2023 LDL 192 07/20/2022 LDL 206 12/03/2020 HDL 37 09/06/2023 HDL 30 12/03/2020 TG 170 09/06/2023 TG 186 12/03/2020 The 10-year ASCVD risk score (Say VILLELA, et al., 2019) is: 43.4% Values used to calculate the score: Age: 73 years Sex: Female Is Non- : No Diabetic: Yes Tobacco smoker: Yes Systolic Blood Pressure: 130 mmHg Is BP treated: Yes HDL Cholesterol: 37 mg/dL Total Cholesterol: 289 mg/dL Albumin/Creat Ratio (mg/g) Date Value 07/25/2022 191 (H) PHARMACOTHERAPY ASSESSMENT/PLAN: 1. Medication management - ICD9: V58.69, ICD10: Z79.899 Reviewed all medications, indications, dosing, frequency, administration with patient. Medication list updated as described above. Seems like fatigue may not be med-related, could be due to poor night of sleep from back spasms Medication list changes: added Tylenol and loratadine Recommendations provided: Patient to talk to PCP to see if can trial a medication for treating back spasms at night --> perhaps better sleep would reduce fatigue? Patient to call braze operator office to discuss neuro's recommendation of switching metoprolol to propranolol which could also replace primidone for essential tremor Advised to take metoprolol 1/2 tab daily as prescribed. Suggested to have son split all pills with pill splitter Follow-up Patient is scheduled to see PCP team on 12/11. Patient verbalized understanding of instructions. Alejandra Ricks, PharmD, BCPS Primary Care Clinical Pharmacist The majority of the pharmacy visit (> 50%) was spent counseling and/or coordinating care for thepatient. interaction: telephonic time was 55 minutes. documented in this encounterKettering Health [facility]02-22-2024 Miscellaneous Notes* Telephone Encounter - Alejandra Ricks RPh - 10/05/2023 10:47 AM EST Pharmacy Community Monitoring Outreach Zoraida Barth is a 73 year old female initially outreached by Bernice Orozco RN on 10/05/23. Encounter was routed to Pharmacy Medication Question Pool for follow up. Patient indicated Medication question(s) regarding: Side effects: Experiencing potential side effects The following was discussed with her: Patient says her medications make her sleeping. Wondering if her medications need tweaked. Falling asleep very easily. Feels this has been an off and on issue for a long time. Plan/Recommendations Patient agreeable to having appt with PharmD for med review to look for causes of sleepiness. Visitscheduled for 10/09. The patient did verbalize understanding of information discussed today. [facility] or [facility]. Time spent: 11 minutes Alejandra Ricks [facility] 10/05/2023 documented in this encounterKettering Health [facility]02-22-2024 History of Present illness Narrative* Bernice Orozco RN - 10/05/2023 9:36 AM EST CDM ESCALATION Provider Action / FYI: RX 4C Medication Question Pool, Ms. Barth has a question about her medication. Thank you, Bonnie Orozco RN, BSN Glass Etcher Helper Message received via: Virtualist Escalation Follow-Up Patient escalated to Virtualist on: 10-04-23 Reason for escalation: eye abnormality Virtualist intervention: Not to drive foe now OV with PCP soon Contact made with patient: Yes Patient identified by name and date of . Discussed care with patient Based on waiter/waitress cocktail lounge the following disposition is advised: No symptoms or symptoms present, not severe. Routed to: Pharmacy ALLEN Education Provided this Outreach: Yes No changes Declined assistance making OV with PCP. States she will call to make OV. Reinforced not to drive until OK with PCP Bernice Orozco RN October 05, 2023 9:41 AM documented in this encounterKettering Health [facility]02-21-2024 History of Present illness Narrative* Mary Alonso APRN.CNP - 10/04/2023 4:54 PM EST Virtualist Distance Health Note (ALYSSA/TCM//CC HC/H@[facility] escalations) I have communicated my name and active licensure. The patient's identity and physical location wereverified at the time of this visit. Either the patient or their legal premium service representative has been informed of the risks and benefits of -- and alternatives to -- treatment through a remote evaluation andconsents to proceed with the evaluation remotely. Triage source: Chronic Disease Management Contacted by: Audio Only Visit History of present illness: For at least 2 months patient has been falling asleep easily and doesn't remember falling asleep. She blinks and can't open eyes. Denies any stoke signs or symptoms Denies fever, SOB, CP, abd pain, N/V/D Past medical history, past surgical history, family history and social history reviewed and updated. REVIEW OF SYSTEMS: Review of Systems VITAL SIGNS: (if available) There were no vitals taken for this visit. Physical Exam (if video visit was performed) Physical Exam Assessment/Plan: ASSESSMENT/PLAN: 1. Eye abnormalities - ICD9: 743.9, ICD10: Q15.9 (primary diagnosis) 2. Drowsy - ICD9: 780.09, ICD10: R40.0 -Discussed red flag symptoms -Encouraged not to drive for now -Soon appt with PCP Disposition: Patient remains at home A total of 15 minutes was spent providing medical care using telemedicine. Signed in as Primary Virtualist, Secondary Virtualist, or [facility] Telehealth provider: Primary documented in this encounterKettering Health Mi[facility]burg02-21-2024 History of Present illness Narrative* Bernice Orozco RN - 10/04/2023 3:53 PM EST NATALIE Telephonic Outreach Provider Action/FYI Virtualist, Ms. Barth states she has been having episodes where she feels her eyes close and she is unable or has difficulty opening them. She wakes up and does not remember going to take a nap. States she is afraid it could happen when she is driving This RN advised she not drive until she is evaluated. Does not sleep well at night Does not now if she snores Does not feel very tired when she wakes up Denies loss of bowel or bladder control when she wakes up Agrees to Virtualist Visit via phone @ [phone] Paged and routed to Virtualist @ [phone] Contacted for: Routine Telephonic Outreach Contact made with patient: Yes Patient identified by name and date of . Discussed care with patient Are you experiencing any new or worsening symptoms you need to talk about today? No Disease Specific Do you check your blood pressure at home? Yes, Enter readings: 89/71 P 62, 96/36 p 63 127/69 P 68 Do you have new or worsening shortness of breath with activity? No Do you feel like you are dehydrated for any reason, including not being able to eat or drink normally, or having less urine/much darker urine than normal for you? No Do you check your daily weight at home? No and Do you have new or worsening cNoough? No Do you have new or worsening wheezing? No Do you need to use your rescue (Albuterol) inhaler or nebulizer more often than normal? No Based on waiter/waitress cocktail lounge, the following disposition is advised: Sent to virtualist. Bernice Orozco RN October 04, 2023 4:11 PM documented in this encounterKettering Health [facility]02-02-2024 Miscellaneous Notes* Telephone Encounter - Birdie Ho MA - 09/15/2023 10:57 AM EST CHERYL: 09/12/23 with PCP NOV: 12/12/23-annual physical with PCP Last refill: 12/26/22 With 90 and 1 refills Birdie Ho MA documented in this encounterKettering Health [facility]burg12-14-2023 Miscellaneous Notes* Telephone Encounter - Dalia Alvarado RN - 07/27/2023 3:46 PM EST Roya La called in and was asking if Pt had a mammogram scheduled. I let her know that she had one ordered, but did not have an appointment set up. I let her know Pts last BP was 122/58 on 06/12/23. Let them know that Pt did the send in stool testing for colon cancer on 06/24/23. documented in this encounterKettering Health Mi[facility]burg11-30-2023 History of Present illness Narrative* Bernice Orozco, JAZMYNE - 07/13/2023 11:46 AM EST [facility] Telephonic Outreach Provider Action/FYI Contacted for: Routine Telephonic Outreach Contact made with patient: Yes Patient identified by name and date of . Discussed care with patient Are you experiencing any new or worsening symptoms you need to talk about today? No Disease Specific Do you check your blood pressure at home? Yes, Enter readings: 130/ Do you have new or worsening shortness of breath with activity? No Do you feel like you are dehydrated for any reason, including not being able to eat or drink normally, or having less urine/much darker urine than normal for you? No Do you check your daily weight at home? No and Do you have new or worsening cough? No Do you have new or worsening wheezing? No Do you need to use your rescue (Albuterol) inhaler or nebulizer more often than normal? 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 Routed to: No Action Needed ALLEN Education Provided this Outreach: No Bernice Orozco RN July 13, 2023 11:50 AM documented in this encounterKettering Health [facility]10-30-2023 History of Present illness Narrative* Zeynep Schmidt APRN.CNP - 06/12/2023 9:37 AM EDT 06/12/2023 Patient presents with: F/U 3 Month SUBJECTIVE: This is a 73 year old that is here today for Above Complaints. Since last office visit has been in good health without ER visits or hospitalizations. No falls HTN: Patient is compliant with meds Yes Monitors bp at home: Yes. Denies side effects: Yes. Chest pain: No. Dyspnea: No. Edema: No. Palpitations: No. Syncope: No. Headache: No. Dizziness: No. CAD: follows with [facility]. Reports recently put her on a water pill due to BP with readings of 160's. Has been monitoring BP at home with readings of 1 teens to 120/50-60's. At times a little lightheaded. Denies SOB, dyspnea, chest pain, palpitations or leg edema. Has follow-up in July with cardiology CKD: recent last GFR completed through [facility]. Tries to eat low salt diet and stay well hydrated. Avoids NSAID'S Depression: taking Zoloft as prescribed without side effects. Denies depressive symptoms HYPOTHYROIDISM: taking synthroid. Take every morning on an empty stomach COPD: continues to smoke. Down to less than a pack a day. Rare use of albuterol inhaler Diabetes: diet controlled. Fating blood sugars at home daily with the majority of readings in the less than 120 range. Denies visual changes, polyuria or polydipsia. Reports did get eye exam this year at [facility]. No changes in prescription Follows with neurology for hx of tremors. Takes primidone as prescribed without side effects. Reports she has noted improvement with the medication PAST MEDICAL HISTORY Diagnosis Date Asthma See PFT 12/2020 CKD (chronic kidney disease), stage III (HCC) Coronary artery disease s/p PTCA with ALEXIS to RCA 04/27, 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 Delgado Non-rheumatic mitral regurgitation 10/03/2017 Onychomycosis Shingles Tobacco use disorder ALLERGIES Metformin, Poison Rahel Extract, and Tkrwams-Qri-Slt Reductase Inhibitors MEDICATIONS Current Outpatient Medications Medication Sig primidone (MYSOLINE) 50 mg tablet Take 2 tablets by mouth daily at bedtime. blood sugar diagnostic (BLOOD GLUCOSE TEST) test strip Test blood sugar(s) 1 times daily. Dx: Type 2 DM - Uncontrolled E11.65 Insulin: No levothyroxine (SYNTHROID) 150 mcg tablet Take 1 tablet by mouth once daily. Take on empty stomach. For thyroid amLODIPine (NORVASC) 10 mg tablet Take 1 tablet by mouth once daily. sertraline (ZOLOFT) 100 mg tablet Take 1 tablet by mouth once daily. lisinopril (ZESTRIL, PRINIVIL) 20 mg tablet Take 1 tablet by mouth twice daily. albuterol HFA (VENTOLIN HFA) 90 mcg/actuation inhaler Inhale 2 Puffs as instructed every 4 hours asneeded. metoprolol succinate ER (TOPROL XL) 25 mg 24 hr tablet Take 0.5 tablets by mouth once daily. Lancets lancets Test blood sugar(s) 1 times daily. Dx: Type 2 DM - Uncontrolled E11.65 Insulin: No Blood-Glucose Meter monitoring kit Glucose Meter of Choice - Kit - Use once daily Dx: Type 2 DM - Uncontrolled E11.65 ibuprofen (MOTRIN) 200 mg tablet Take 3 tablets by mouth every 6 hours as needed for Pain (Take with food.). aspirin, enteric coated (ASPIRIN, ENTERIC COATED) 81 mg EC tablet Take 81 mg by mouth once daily. NITROGLYCERIN BUCCAL Place between cheek and gum. No current facility-administered medications for this visit. Medications and allergies reviewed by this provider. SOCIAL HISTORY Social History Tobacco Use Smoking status: Every Day Packs/day: 1.00 Years: 40.00 Additional pack years: 0.00 Total pack years: 40.00 Types: Cigarettes Start date: 08/14/1969 Smokeless tobacco: Never Substance Use Topics Alcohol use: No Comment: Rarely Drug use: No REVIEW OF SYSTEMS All other reviewed and negative other than HPI. OBJECTIVE: BP 122/58 Pulse 66 Resp 18 Wt 96.6 kg (213 lb) SpO2 95% BMI 38.34 kg/m . Vital signs reviewed by this provider. APPEARANCE Well appearing, alert, in no acute distress, well-hydrated, well nourished. EYES conjunctiva and sclera normal. HEART RRR with normal S1 and S2, no murmurs, no gallops, no JVD appreciated LUNG Diminished posteriorly all lung files. NO wheezes, rhonchi or rales EXTREMITIES Extremities normal, No deformities, No skin discoloration, and No edema SKIN Skin color, texture, turgor normal, no suspicious rashes or lesions to exposed skin Component Latest Ref Rng & Units 01/26/2023 03/08/2023 Protein, Total 6.3 - 8.0 g/dL 7.1 7.2 Albumin 3.9 - 4.9 g/dL 4.2 4.4 Calcium 8.5 - 10.2 mg/dL 10.0 Bilirubin, Total 0.2 - 1.3 mg/dL 0.2 <0.2 (L) Alkaline Phosphatase 34 - 123 U/L 91 73 AST 13 - 35 U/L 16 18 ALT 7 - 38 U/L 6 (L) 7 Glucose 74 - 99 mg/dL 86 BUN 7 - 21 mg/dL 21 Creatinine 0.58 - 0.96 mg/dL 1.08 (H) Sodium 136 - 144 mmol/L 139 Potassium 3.7 - 5.1 mmol/L 4.4 Chloride 97 - 105 mmol/L 104 CO2 22 - 30 mmol/L 25 Anion Gap 9 - 18 mmol/L 10 eGFR >=60 mL/min/1.73m 55 (L) Bilirubin, Conjug <0.2 mg/dL <0.2 Hemoglobin A1C 4.3 - 5.6 % 6.2 (H) Estimated Average Glucose mg/dL 131 TSH 0.270 - 4.200 mIU/L 2.660 Component Latest Ref Rng & Units 07/20/2022 Total Cholesterol, Nonfasting <200 mg/dL 246 (H) Triglycerides, Nonfasting <150 mg/dL 99 HDL Cholesterol, Nonfasting >39 mg/dL 34 (L) LDL Cholesterol, Nonfasting <100 mg/dL 192 (H) Non HDL Cholesterol, Nonfasting <130 mg/dL 212 (H) VLDL Cholesterol, Nonfasting <30 mg/dL 20 Total Chol/HDL Ratio, Nonfasting <5.10 mg/dL 7.24 (H) LDL/HDL Ratio, Nonfasting <2.54 mg/dL 5.65 (H) Alpha-1 Antitrypsin Deficiency Screening Never done Hepatitis B Vaccine(1 of 3 - Risk 3-dose series) Never done RSV Vaccine(1 - 1-dose 60+ series) Never done Mammogram Screening due on 08/13/2021 Dilated Retinal Exam due on 01/12/2022 Advance Directive Discussion due on 08/14/2022 Influenza Vaccine(1) due on 04/14/2023 Covid-19 Vaccine( season) due on 04/14/2023 DTaP,Tdap,Td Vaccine(1 - Tdap) due on 07/27/2023 Lung Cancer Screening due on 07/27/2023 Colorectal Cancer Screening due on 07/27/2023 Shingrix Vaccine(1 of 2) due on 07/27/2023 LDL Cholesterol due on 07/20/2023 Hemoglobin/Hematocrit due on 07/20/2023 Urine Albumin:Creatinine Ratio due on 07/25/2023 HbA1C due on 07/28/2023 Diabetic Foot Exam due on 01/27/2024 Serum Creatinine due on 01/27/2024 Annual PCP Team Chronic Disease Visit due on 03/28/2024 BP Controlled (<130/80) due on 06/05/2024 Bone Density Screening Completed Spirometry Completed Hepatitis C Screening Completed Pneumococcal Vaccine: 65+ Completed ASSESSMENT/PLAN: 1. Essential hypertension - ICD9: 401.9, ICD10: I10 (primary diagnosis) - Controlled - Continue current medications - Recommend home blood pressure monitoring, to bring results to next visit - Encouraged sodium restriction, DASH or Mediterranean diet - Recommend regular aerobic exercise - Discussed need for and benefit of weight loss. BMI 38.34 kg/(m^2) - Smoking cessation encouraged; discussed risks to health and quitting strategies. Patient is not ready to quit - Follow up in 3 months for hypertension visit - COMP METABOLIC PANEL 2. Encounter for immunization - ICD9: V03.89, ICD10: Z23 - INFLUENZA VACCINE, PRSV FREE, AGE 65+ YR, HIGH DOSE, QUADRIVALENT (FLUZONE HIGH-DOSE) - [place] COVID-19 VACCINE (2022- SEASON) AGE 12+ YR 3. Coronary artery disease involving [place] coronary artery of [place] heart without angina pectoris- ICD9: 414.01, ICD10: I25.10 - follow-up with cardiology as schedules - LIPID PANEL BASIC 4. Type 2 diabetes mellitus with stage 3a chronic kidney disease, without long- term current use of insulin (HCC) - ICD9: 250.40, 585.3, ICD10: E11.22, N18.31 - Controlled - Continue current medications - Counseled on healthy diet and regular exercise - Discussed need for and benefit of weight loss. BMI 38.34 kg/(m^2) - Smoking cessation encouraged; discussed risks to health and quitting strategies. Patient is not ready to quit - Follow up in 3 months, sooner should any other issues arise. - eGFR: 55 Worsening - Counseled on avoiding NSAIDs, adequate hydration - Counseled on low sodium diet - HGB A1C 5. Mild chronic obstructive pulmonary disease (HCC) - ICD9: 496, ICD10: J44.9 - stable - tobacco cessation encouraged 6. Body mass index (BMI) 40.0-44.9, adult (HCC) - ICD9: V85.41, ICD10: Z68.41 Weight increasing - Behavioral intervention - Lengthy discussion in office today regarding diet and exercise. Discussed use of small plate to eat meals from, drink 1 glass of water 10-15 minutes prior to eating meal, drink 8 glasses of water daily, eat fresh fruit and vegetable during meal first then lean protein such as grilled/baked chicken breast or fish, limit carbohydrate intake (less pasta, breads, rice and snack foods) as well as limiting sugars (desserts etc). Important to count / track your calories and exercise as well. 7. Mixed hyperlipidemia - ICD9: 272.2, ICD10: E78.2 - Control undetermined, due for labs - Counseled on healthy diet and regular exercise - Discussed need for and benefit of weight loss. BMI 38.34 kg/(m^2) - Follow up in 3 months, sooner should any other issues arise. - statin intolerant 8. Tremor - ICD9: 781.0, ICD10: R25.1 -stable on current regime - follow-up with neurology as scheduled Zeynep Schmidt APRN.VICKIE Prescription instructions reviewed with patient as applicable. Patient advised if symptoms do not improve or if symptoms worsen sooner, to contact their primary care physician. Potential red flag symptoms discussed with the patient. Reviewed appropriate action plan to take if red flag symptoms occur. Patient agreeable to treatment plan. I spent a total of 30 minutes on the date of the service which included preparing to see the patient, [id number] patient care, completing clinical documentation, obtaining and/or reviewing separately obtained history, performing a medically appropriate examination, counseling and educating the pat ient/family/caregiver, and ordering medications, tests, or procedures. documented in this encounterK[facility] History of Present illness Narrative* Dean Dubois MD - 06/05/2023 11:24 AM EDT FOLLOW UP NOTE Subjective Zoraida Barth is a 73 year old female who presents for follow up. CC: Tremor Summary of prior care: Right-handed female with a history of DM, HTN, HLD, and CAD with stent who presents for evaluation of tremor. Her examination demonstrates right hand tremor most prominently with writing or in some positions. No concern for PD. 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 Explained these different diagnoses and treatment approach. She is already on low dose metoprolol, if able to change to propranolol might find more tremor benefit with it. History of depression and anxiety, would need to watch for mood changesif pushing dose of beta juan j. Will try primidone titrating to 100 mg QHS, discussed side effectsand use. In future multiple other medications that could be tried. 11/2022 no change. HPI Current Issues 1. Tremor - Tremor still improved from prior, occasionally present but not always - Doesn't overly interfere with her function - Wouldn't be interested in changing things today - Still on low dose of metoprolol - DM has been good, does not get really low blood sugar, might get a little light-headed if under 100 - Thyroid has also been stable - Doesn't need albuterol often Current Outpatient Medications Medication Sig Dispense Refill blood sugar diagnostic (BLOOD GLUCOSE TEST) test strip Test blood sugar(s) 1 times daily. Dx: Type 2 DM - Uncontrolled E11.65 Insulin: No 50 Strip 11 levothyroxine (SYNTHROID) 150 mcg tablet Take 1 tablet by mouth once daily. Take on empty stomach. For thyroid 90 tablet 1 amLODIPine (NORVASC) 10 mg tablet Take 1 tablet by mouth once daily. 90 tablet 1 primidone (MYSOLINE) 50 mg tablet Take 2 tablets by mouth daily at bedtime. 180 tablet 1 lisinopril (ZESTRIL, PRINIVIL) 20 mg tablet Take 1 tablet by mouth twice daily. 180 tablet 3 albuterol HFA (VENTOLIN HFA) 90 mcg/actuation inhaler Inhale 2 Puffs as instructed every 4 hours asneeded. 1 Each 2 Lancets lancets Test blood sugar(s) 1 times daily. Dx: Type 2 DM - Uncontrolled E11.65 Insulin: No 100 Each 11 Blood-Glucose Meter monitoring kit Glucose Meter of Choice - Kit - Use once daily Dx: Type 2 DM - Uncontrolled E11.65 1 Each 0 ibuprofen (MOTRIN) 200 mg tablet Take 3 tablets by mouth every 6 hours as needed for Pain (Take with food.). 0 aspirin, enteric coated (ASPIRIN, ENTERIC COATED) 81 mg EC tablet Take 81 mg by mouth once daily. NITROGLYCERIN BUCCAL Place between cheek and gum. sertraline (ZOLOFT) 100 mg tablet Take 1 tablet by mouth once daily. 90 tablet 1 metoprolol succinate ER (TOPROL XL) 25 mg 24 hr tablet Take 0.5 tablets by mouth once daily. 45 tablet 1 No current facility-administered medications for this visit. REVIEW OF SYSTEMS Her ROS was positive for that mentioned in the HPI. Otherwise a 10-point ROS was completed and was negative. Objective OBJECTIVE 06/05/23 1121 BP: 116/60 Pulse: 60 SpO2: 100% Weight: 95.3 kg (210 lb) Height: 158.8 cm (5' 2.5") General: General Appearance: Well appearing, alert, in no acute distress, well-hydrated, well nourished. Head: Normocephalic Neck: Supple Heart: RRR Neurologic Exam: Mental Status: She is alert. She is fully oriented. Attention is intact. Memory is intact. Languageshows normal comprehension and fluency. Affect is appropriate. Cranial Nerves: Extraocular movements show full and smooth pursuits. No nystagmus. Visual [place] are full to confrontation. Facial activation is symmetric. Hearing is intact to conversation. There isno hypomimia. There is no hypophonia. There is no dysarthria. Tongue is midline. Palate elevates sym metrically. Shoulder shrug is normal. Motor: Muscle bulk is normal. Rapid alternating movements are normal. Muscle power is full. No rest tremor. Mild intermittent right hand postural tremor. Minimal kinetic tremor. Coordination: Finger to nose is smooth without ataxia. Gait/station: Walks with cane for support DATA REVIEW Actual films/image/tracing reviewed and summarized as follows: n/a Old records reviewed and summarized as follows: TSH 0.814 Assessment/Plan ASSESSMENT & PLAN: Zoraida Barth is a 73 year old right-handed female with a history of DM, HTN, HLD, and CAD with stent who presents for evaluation of tremor. Her examination demonstrates right hand tremor most prominently with writing or in some positions. 1. Tremor - Still happy with tremor control with primidone 100 mg QHS, continue without changes today. Follow-up: 12 months Risks & Side Effects of Newly Prescribed Medication, Discussed with Patient: n/a Dean Dubois MD [facility] documented in this encounterK[facility]09-06-2023 History of Present illness Narrative* [facility]igCarmen dickson - 04/19/2023 3:23 PM EDT POPULATION HEALTH NAVIGATION OUTREACH Action/FYI 1st attempt- lvm/sent [place] to schedule appt with pcp/team within 7 days for bp follow up. Postponed message x1 day- will attempt call again Patient Identified by Name and : NO Outreach Outcome/Action Unable to reach patient: Left message OneTwoSee message sent Did you use a PCP flex slot to schedule this appointment? N/A Reason for Outreach [facility] Payer: Payor: [employer] / Plan: [employer] HMO / Product Type: HMO / Care Gap Reviewed:: Follow-up appointment Reminder: Reminder note to check Health Maintenance for items below Health Maintenance items due: ALPHA-1 ANTITRYPSIN DEFICIENCY SCREENING Never done MAMMOGRAM due on 08/13/2021 DILATED RETINAL EXAM due on 01/12/2022 ADVANCE DIRECTIVE DISCUSSION due on 08/14/2022 COVID-19 VACCINE(4 - Additional dose for Mary series) due on 11/25/2022 INFLUENZA(1) due on 04/14/2023 Navigation Signature: Carmen Lawler [facility] April 19, 2023 3:23 PM * Bernice Orozco RN - 04/19/2023 2:50 PM EDT CDM Telephonic Outreach Provider Action/FYI Community Monitoring Navigator, Please call Ms. Barth and schedule her with PCP within the next 7 days for BP follow up. Thank you, Bonnie Orozco, RN, BSN Glass Etcher Helper Contacted for: Routine Telephonic Outreach Contact made with patient: Yes Patient identified by name and date of . Discussed care with patient Are you experiencing any new or worsening symptoms you need to talk about today? Yes Based on waiter/waitress cocktail lounge, the following disposition is advised: No symptoms or symptoms present, not severe. Routed to: Navigation Team: PCP visit within 7 days ALLEN Education Provided this Outreach: No States BP has been creeping up over the past 2 weeks. BP in the morning prior to taking medications has been running high today 165/70. Rechecked later and it was 155/, checked later in the day and BP was 124/64. Had been taking Claritin for sinuses andstopped a week ago because she read it could increase BP. Normally when she checks BP in the morning prior to medications her BP is 122/60's Will continue to log BP at various times of the day and will start checking daily weights and log Will bring log to OV with PCP along with her BP monitor. Reviewed when to call PCP for BP and Weight increase Bernice Orozco RN April 19, 2023 3:03 PM documented in this encounterK[facility]08-31-2023 History of Present illness Narrative* Joe Castillo, PT - 04/13/2023 11:13 AM EDT Episode Visit Count: 6 Therapist That Will Accept/Oversee The Plan Of Care: Joe Castillo PT Start of Care Date: 03/14/23 Onset Date: 03/14/19 Plan of Care Certification Date: 03/14/23 Next Certification Due Date: 04/18/23 Patient Identified by Name and Date of : Yes REHABILITATION AND SPORTS THERAPY PHYSICAL THERAPY DISCONTINUANCE OF CARE PLAN OF CARE UPDATE: Assessment: Zoraida Barth is discontinued from Physical Therapy services due to goal achievement and maximal benefit., Patient/Client declining further intervention., and Patient/Clinician mutual decision to discontinue current plan of care.. Patient was seen for 6 visits from Start of Care Date: 03/14/23 to 04/13/2023 and treatment included: Therapeutic exercise, Manual therapy, Self- prison management, Patient/Family/Caregiver Education, and Body mechanics training. Pt is feeling much betterand feels confident in her ability to self manage with HEP. She has requested d/c from supervised PT. Updated: 04/13/23 Goals for Episode of Care: created on 03/14/23 through 04/18/23 Independent in home exercises. - MET Patient will decrease pain to 0-2/10 at rest and with functional activities to allow patient to improve ambulation and standing tolerance for ADLs. - Partially MET Restore pain-free lumbar ROM to WFL to allow for improved sleeping. - MET Stand / Walk without limitations, without pain/symptoms. - Partially MET Sleep through night without pain/symptoms. - Partially MET Patient will be able to tolerate sleeping, cooking, standing and walking without increased symptoms. - Partially MET Patient will increase strength of core and postural muscles to WFL to allow for improved tolerance with standing for cooking. - MET Patient Goals: decrease pain in low back and B hips - MET SUBJECTIVE: Pt reports that overall she is much better with less pain in low back. She reports thatpain is much less intense and less frequent. She reports increased standing tolerance for showering, cooking, cleaning and vacuuming. She reports that she no longer needs to sit for her shower. She reports that she does still need to get up during the night secondary to back pain. She reports beingable to sleep longer but not through the night. She reports decreased use of ibuprofen. She reportscompliance with HEP 3x day and even during the night when pain increases. She feels that therex, HEP and manual traction help her but she feels confident that she can self-manage with independent HEP. Pain: Pain Pain Level: 3 Pain Location: Low Back/Lumbar Spine - Left, Buttocks - Left, Hip - Left Description: Dull Frequency: Intermittent Post Treatment Pain Post Treatment Pain Level: Better Post Treatment Pain Description: (Pt denied pain with rotation) Post Treatment Symptoms: After session, pt stated, "I feel pretty good." PROMIS Scales Higher is Better 04/13/2023 03/14/2023 Phys Func - Score 38 (moderate dysfunction) 37 (moderate dysfunction) Phys Func - Percentile 12 % 10 % Self-Eff Symptom - Score 44 (Average) 38 (Low) Self-Eff Symptom - Percentile 27 % 12 % T-scores: mean of general population = 50. 5 points is clinically meaningfully difference Percentiles provide an indication of how the patient's score ranks in relation to the general population. Higher percentile rankings indicate better function/quality of life. 50th percentile is the average of the general population and indicates half of respondents had a worse score. OBJECTIVE MEASURES WITH LEVEL OF FUNCTION: Lumbar Spine AROM Lumbar Flexion: Normal Lumbar Extension: Normal Lumbar R Side-Bend: Normal Lumbar L Side-Bend: Minimal limitation, Increased pain Lumbar R Rotation: Normal Lumbar L Rotation: Normal LE Strength Trunk Strength: functionally improved TREATMENT: Therapeutic Exercise: 1: SciFit StepOne seat #10 x5 minutes (Pt provided) 2: supine LTR 2x10 3: supine B SKTC 3x30 seconds 4: supine L piriformis stretch 3x30 seconds 5: *supine posterior pelvic tilts maintained during B alt marching 2x10 6: bridging 2x10 in small range 7: crunches in small range 2x10 Skilled Intervention: Patient was educated in proper exercise technique and purpose for exercises. Reviewed and educated patient on additions/changes for home exercise program as above (*). Skilled judgment was provided in selection of appropriate interventions. Provided written instruction for home exercise program to facilitate proper performance and compliance. Correct performance of therapeutic exercises was facilitated with verbal and visual cuing. Patient education as noted. Manual Therapy: Manual Traction: static manual lumbar belt traction with pt supine, LEs on leg rest, caudal pull totolerance x10 minutes. Skilled Intervention: Manual skills to improve joint mobility, ROM, and decrease pain. Utilized anatomy knowledge of the therapist, and assessment of patient's response to intervention. Billing Therapeutic Exercise Treatment Minutes: 34 Manual TherapyTreatment Minutes: 10 Total Treatment Time Minutes (timed/untimed): 44 Session Start Time : 1001 Session Stop Time : 1045 Joe Castillo PT documented in this encounterK[facility]08-22-2023 History of Present illness Narrative* Joe Castillo PT - 04/04/2023 10:19 AM EDT Episode Visit Count: 4 Therapist That Will Accept/Oversee The Plan Of Care: Joe Castillo PT Start of Care Date: 03/14/23 Onset Date: 03/14/19 Plan of Care Certification Date: 03/14/23 Next Certification Due Date: 04/18/23 Patient Identified by Name and Date of : Yes REHABILITATION AND SPORTS THERAPY PHYSICAL THERAPY TREATMENT NOTE ASSESSMENT: Zoraida Barth tolerated the session with decreased symptoms. She demonstrated difficulty with LTR due to limited motion. The patient will continue to benefit from ongoing skilled physicaltherapy to progress toward set goals. PLAN FOR NEXT VISIT: Consider PPT with kerry nielson. SUBJECTIVE: Pt reports that she is still having pain in her low back and L hip. Pt states that painwoke her up this morning. Pain: Pain Pain Level: 6 Post Treatment Pain Post Treatment Pain Level: Better Post Treatment Pain Location: Low Back/Lumbar Spine - Right, Low Back/Lumbar Spine - Left, Buttocks- Right, Buttocks - Left OBJECTIVE MEASURES WITH LEVEL OF FUNCTION: TREATMENT: Therapeutic Exercise: 1: supine B SKTC 3x30 seconds 2: supine LTR 2x10 3: supine L piriformis stretch 3x30 seconds 4: supine L piriformis stretch 3x30 seconds 5: supine posterior pelvic tilts 2x10 Skilled Intervention: Patient was educated in proper exercise technique and purpose for exercises. Skilled judgment was provided in selection of appropriate interventions. Correct performance of therapeutic exercises was facilitated with verbal and visual cuing. Manual Therapy: Manual Traction: static manual lumbar belt traction with pt supine, LEs on leg rest, caudal pull totolerance x10 minutes. Skilled Intervention: Manual skills to improve joint mobility, ROM, and decrease pain. Utilized anatomy knowledge of the therapist, and assessment of patient's response to intervention. Billing Therapeutic Exercise Treatment Minutes: 33 Manual TherapyTreatment Minutes: 10 Total Treatment Time Minutes (timed/untimed): 43 Session Start Time : 1017 Session Stop Time : 1100 ENRIQUE De Anda PT documented in this encounterK[facility]08-16-2023 Miscellaneous Notes* Telephone Encounter - Eden Guy LPN - 03/29/2023 1:18 PM EDT Last refill 09/28/22 Qty: 90 with 1 refill CHERYL 03/28/23 NOV 06/09/23 Eden Guy LPN documented in this encounterK[facility]08-15-2023 History of Present illness Narrative* Sherri Davalos MD - 03/28/2023 9:35 AM EDT Chief Complaint Patient presents with: ER F/U HPI Zoraida Barth is a 73 year old female who presents here today for ER Follow Up. Patient evaluated at [facility] ED on 03/22 for complaint of chest pain which started the day prior to evaluation and did not improve with use of nitro. On the day of evaluation she had chest pressure similarto her previous ID. Worked up in the ED for epigastric and chest pain and received GI cocktail and analgesics which improved her symptoms. EKG unremarkable. CBC, CMP, troponin x 2 negative. CXR showed [id number] cardiomegaly, otherwise negative. Discharged home with recommendation to follow up with our office. Since discharge, patient states that she will still get occasional sharp pain across her sternum without radiation to her neck or shoulder. Pain occurs randomly and does not seem to be exacerbated with exertion or improve with rest. Has not repeated her nitro and has not taken anything for GERD. Denies SOB, palpitations, LE edema, nausea, diaphoresis. Reviewed pharmacologic stress from 2019 which was negative for ischemia. BP elevated on initial check, but has been well controlled in the 110-120's/60's at previous OV andin the ED. Past medical history, appointments, medications, allergies reviewed. 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 Delgado Non-rheumatic mitral regurgitation 10/03/2017 Onychomycosis Shingles Tobacco use disorder Previous Surgical History PAST SURGICAL HISTORY Procedure Laterality Date ARTHROSCOPY KNEE DIAGNOSTIC W/WO SYNOVIAL BX SPX Arthroscopy, knee right LAPAROSCOPY SURG CHOLECYSTECTOMY 10/18/2017 Cholecystectomy, lap LIG/TRNSXJ FLP TUBE ABDL/VAG APPR UNI/BI Tubal ligation PAST SURGICAL HISTORY OF 1994 kidney stone extraction: cut ureter STENT - CORONARY 2012 TONSILLECTOMY HX TOTAL ABDOMINAL HYSTERECT W/WO RMVL TUBE OVARY 1991 Hysterectomy, THANG, BSO URETERAL STENT 1994 2nd surgery Family History FAMILY HISTORY Problem Relation Age of Onset Heart Mother Diabetes Mother Hypertension Mother other (unknown) Father Hypertension Sister Thyroid Sister Asthma Sister Skin Cancer Other 1st cousin, unsure of type other (horseshoe kidney) Son Patient Allergies ALLERGIES Allergen Reactions Metformin GI Upset Poison Rahel Extract Other: See Comments Severe rash [id number] Red* Other: See Comments cholesterol medications cause liver pain Current Medications Current Outpatient Medications on File Prior to Visit Medication Sig terbinafine HCl (LAMISIL) 250 mg tablet Take 1 tablet by mouth once daily. amLODIPine (NORVASC) 10 mg tablet Take 1 tablet by mouth once daily. primidone (MYSOLINE) 50 mg tablet Take 2 tablets by mouth daily at bedtime. lisinopril (ZESTRIL, PRINIVIL) 20 mg tablet Take 1 tablet by mouth twice daily. albuterol HFA (VENTOLIN HFA) 90 mcg/actuation inhaler Inhale 2 Puffs as instructed every 4 hours asneeded. blood sugar diagnostic (BLOOD GLUCOSE TEST) test strip Test blood sugar(s) 1 times daily. Dx: Type 2 DM - Uncontrolled E11.65 Insulin: No Lancets lancets Test blood sugar(s) 1 times daily. Dx: Type 2 DM - Uncontrolled E11.65 Insulin: No Blood-Glucose Meter monitoring kit Glucose Meter of Choice - Kit - Use once daily Dx: Type 2 DM - Uncontrolled E11.65 ibuprofen (MOTRIN) 200 mg tablet Take 3 tablets by mouth every 6 hours as needed for Pain (Take with food.). aspirin, enteric coated (ASPIRIN, ENTERIC COATED) 81 mg EC tablet Take 81 mg by mouth once daily. NITROGLYCERIN BUCCAL Place between cheek and gum. sertraline (ZOLOFT) 100 mg tablet Take 1 tablet by mouth once daily. levothyroxine (SYNTHROID) 150 mcg tablet Take 1 tablet by mouth once daily. Take on empty stomach. For thyroid metoprolol succinate ER (TOPROL XL) 25 mg 24 hr tablet Take 0.5 tablets by mouth once daily. No current facility-administered medications on file prior to visit. Social History Social History Tobacco Use Smoking status: Every Day Packs/day: 1.00 Years: 40.00 Additional pack years: 0.00 Total pack years: 40.00 Types: Cigarettes Start date: 08/14/1969 Smokeless tobacco: Never Substance Use Topics Alcohol use: No Comment: Rarely Drug use: No Review of Symptoms REVIEW OF SYSTEMS GENERAL: No weight loss, malaise or fevers RESPIRATORY: Negative for cough, hemoptysis, wheezing, COPD, dyspnea or shortness of breath CARDIOVASCULAR: Negative for chest pain, leg swelling, hypertension, CHF or palpitations GI: No nausea, vomiting, or diarrhea SKIN: Negative for lesions, rash, and itching EXAM: BP 140/76 Pulse 61 Resp 16 Wt 96.5 kg (212 lb 12.8 oz) SpO2 95% BMI 38.92 kg/m General Appearance: Well appearing, alert, in no acute distress, well-hydrated, well nourished.. Skin: Skin color, texture, turgor normal, no suspicious rashes or lesions. Lungs: Lungs clear to auscultation. No wheezing, rhonchi, rales.. Heart: RRR without murmur, gallop, or rubs. No ectopy. Abdomen: Normal abdominal exam, Abdomen soft, non-tender. Bowel sounds normal. No masses, organomegaly. Extremities: No deformities, edema, skin discoloration, clubbing or cyanosis. Good capillary refill. . Musculoskeletal: no reproducible pain with palpation of sternum or intercostal spaces. Health Maintenance List ALPHA-1 ANTITRYPSIN DEFICIENCY SCREENING Never done MAMMOGRAM due on 08/13/2021 DILATED RETINAL EXAM due on 01/12/2022 ADVANCE DIRECTIVE DISCUSSION due on 08/14/2022 COVID-19 VACCINE(4 - Additional dose for Mary series) due on 11/25/2022 DTAP,TDAP,TD(1 - Tdap) due on 07/27/2023 LUNG CANCER SCREENING due on 07/27/2023 COLORECTAL CANCER SCREENING due on 07/27/2023 SHINGRIX VACCINE(1 of 2) due on 07/27/2023 INFLUENZA(1) due on 04/14/2023 LDL CHOLESTEROL due on 07/20/2023 HEMOGLOBIN/HEMATOCRIT due on 07/20/2023 URINE ALBUMIN:CREATININE RATIO due on 07/25/2023 HBA1C due on 07/28/2023 BP CONTROLLED (<130/80) due on 09/28/2023 DIABETIC FOOT EXAM due on 01/27/2024 SERUM CREATININE due on 01/27/2024 ANNUAL PCP TEAM CHRONIC DISEASE VISIT due on 03/09/2024 BONE DENSITY Completed SPIROMETRY Completed HEPATITIS C SCREENING Completed PNEUMOCOCCAL: 65+ Completed ASSESSMENT/PLAN: 1. Chest pain, unspecified type - ICD9: 786.50, ICD10: R07.9 (primary diagnosis) Cardiac workup in the ED negative. With her history of CAD s/p PTCA with ALEXIS To RCA in 2013, will have her reach out to her braze operator today for further evaluation. Advised to continue medical management and take nitro PRN for recurrent symptoms. May also try OTC Prilosec or pepcid for possible GERD. Red flags for re-assessment reviewed with patient in detail. Will f/u recommendations from [facility] cardiology. 2. Coronary artery disease involving [place] coronary artery of [place] heart without angina pectoris- ICD9: 414.01, ICD10: I25.10 See above 3. Essential hypertension - ICD9: 401.9, ICD10: I10 - Home blood pressure readings controlled - Recommend home blood pressure monitoring, to bring results to next visit - Encouraged sodium restriction, DASH or Mediterranean diet - Recommend regular aerobic exercise - Follow up in 2 weeks for hypertension visit if not seen by cardiology first. 4. Mixed hyperlipidemia - ICD9: 272.2, ICD10: E78.2 - Uncontrolled, statin intolerant - Counseled on healthy diet and regular exercise Sherri Davalos MD documented in this encounterK[facility]-11-[facility]23 History of Present illness Narrative* [place] Population Health NavigatorCarmen - 03/24/2023 10:34 AM EDT POPULATION HEALTH NAVIGATION OUTREACH Action/FYI Spoke to patient and scheduled TCM follow up appt with pcp on 03-28-23 [facility] 03-22-23 for Chest Pain, Epigastric Pain Patient Identified by Name and : YES, via phone Outreach Outcome/Action Spoke to patient / parent / legal guardian: Patient scheduled Did you use a PCP flex slot to schedule this appointment? No Reason for Outreach Community Monitoring [place] Payer: Payor: [employer]YA [employer] BLUE [employer]IELD / Plan: ROYA [employer]i HMO / Product Type: HMO / Care Gap Reviewed:: Follow-up appointment Reminder: Reminder note to check Health Maintenance for items below Health Maintenance items due: ALPHA-1 ANTITRYPSIN DEFICIENCY SCREENING Never done MAMMOGRAM due on 08/13/2021 DILATED RETINAL EXAM due on 01/12/2022 ADVANCE DIRECTIVE DISCUSSION due on 08/14/2022 COVID-19 VACCINE(4 - Additional dose for Mary series) due on 11/25/2022 Navigation Signature: Carmen Lawler [facility] Navigator March 24, 2023 10:34 AM * Bernice Orozco RN - 03/24/2023 9:51 AM EDT [facility] Telephonic Outreach Provider Action/FYI Contacted for: Routine Telephonic Outreach Contact made with patient: Yes Patient identified by name and date of . Discussed care with patient Are you experiencing any new or worsening symptoms you need to talk about today? No (See ED Follow up note below) Disease Specific Do you check your blood pressure at home? Yes, Enter readings: 140/58 with pain. Normally 122/60 when not in pain Do you have new or worsening shortness of breath with activity? No Do you feel like you are dehydrated for any reason, including not being able to eat or drink normally, or having less urine/much darker urine than normal for you? Yes Do you check your daily weight at home? No and Do you have new or worsening cough? No Do you have new or worsening wheezing? No Do you need to use your rescue (Albuterol) inhaler or nebulizer more often than normal? 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 Routed to: No Action Needed ALLEN Education Provided this Outreach: No Bernice Orozco RN March 24, 2023 9:53 AM * Bernice Orozco RN - 03/24/2023 9:44 AM EDT ED Follow-Up Note Provider Action / FYI: Community Monitoring Navigator, Please call Lary Muse and schedule a ED follow up with PCP within the next 7 days. Seen at [place] ED 03-22-23 for Chest Pain, Epigastric Pain Thank you, Bonnie Orozco, RN, BSN Glass Etcher Helper Denies chest pain or pressure Does have occasional stomach pain Patient seen in ED: Out of Network ED Contact made with Patient: Yes The patient was identified by Name and Date of . Discussed Care with: patient Patient was seen in the Emergency Department (ED) Location: [facility] Date: 03-22-23 Reason for ED Visit: Chest Pain ED Intervention: GI Cocktail, analgesics, EKG, CXR and labs Based on waiter/waitress cocktail lounge, the following disposition is advised: No symptoms or symptoms present, not severe. Routed to: Navigation Team: PCP visit within 7 days ALLEN Education Provided this Outreach: No States a script for her stomach was ordered. Not noted in notes from [place] ED. She has not started them yet. She will miner pick today and start Bernice Orozco RN March 24, 2023 10:05 AM documented in this encounterK[facility]08-10-2023 History of Present illness Narrative* Bernice Orozco RN - 03/23/2023 2:06 PM EDT [facility] Telephonic Outreach Provider Action/FYI Contacted for: Routine Telephonic Outreach Contact made with patient: No, left message. Bernice Orozco RN March 23, 2023 2:08 PM documented in this encounterK[facility]08-09-2023 History of Present illness Narrative* Joe Castillo PT - 03/22/2023 7:18 PM EDT Episode Visit Count: 3 Therapist That Will Accept/Oversee The Plan Of Care: Joe Castillo PT Start of Care Date: 03/14/23 Onset Date: 03/14/19 Plan of Care Certification Date: 03/14/23 Next Certification Due Date: 04/18/23 Patient Identified by Name and Date of : Yes REHABILITATION AND SPORTS THERAPY PHYSICAL THERAPY TREATMENT NOTE ASSESSMENT: Zoraida Barth tolerated the session with decreased symptoms. She demonstrated improvements in pain and exercise tolerance. The patient will continue to benefit from ongoing skilled physical therapy to progress toward set goals. PLAN FOR NEXT VISIT: Continue with therex for postural stretching and strengthening with flexion directional preference,progress to tolerance and modify prn. Continue manual lumbar belt traction. SUBJECTIVE: Pt reports that she was "miserable" on the day after last session. She attributes this to being too aggressive with the therex done in PT. Ten minutes into today's session pt reported that she was examined in the ED today for chest discomfort. She reports that all work up ruled out any cardiac issues. She reports that she needs to schedule a follow up with Dr. Davalos but has not donethis yet. She denies receiving any activity restrictions. She reports that the traction "felt great" last session during treatment. She reports that she has not done HEP since last session. She reports that the flare up from yesterday has eased today Pain: Pain Pain Level: 0 Description: (she denies any pain to start today.) Frequency: Intermittent Post Treatment Pain Post Treatment Pain Level: Better Post Treatment Symptoms: Pt denied any pain to start and also reported feeling better after treatment. She reported that her hips were loosened up as she was leaving. OBJECTIVE MEASURES WITH LEVEL OF FUNCTION: TREATMENT: Therapeutic Exercise: 1: [employer] StepOne seat #10 x6 minutes (warm up that was not included in treatment minutes) 2: supine B SKTC 3x30 seconds 3: bridges 2x10 in small range 4: supine LTR 2x10 5: supine isometric abdominal exercise via shoulder extension 2 seconds 2x10 6: supine L piriformis stretch 3x30 seconds 7: supine crunches 2x5 8: supine posterior pelvic tilts 2x10 Skilled Intervention: Patient was educated in proper exercise technique and purpose for exercises. Skilled judgment was provided in selection of appropriate interventions. Correct performance of therapeutic exercises was facilitated with verbal and visual cuing. Patient education as noted. Manual Therapy: Manual Traction: static manual lumbar belt traction with pt supine, LEs on leg rest, caudal pull totolerance x12 minutes. Skilled Intervention: Manual skills to improve joint mobility, ROM, and decrease pain. Utilized anatomy knowledge of the therapist, and assessment of patient's response to intervention. Billing Therapeutic Exercise Treatment Minutes: 29 Manual TherapyTreatment Minutes: 12 Total Treatment Time Minutes (timed/untimed): 41 Session Start Time : 1820 Session Stop Time : 1907 Joe Castillo PT documented in this encounterK[facility]08-09-2023 Discharge summary Author Jose Jackson [facility] March 22, 2023 1:50pm Note Date/Time March 22, 2023 10: 49am [facility] Medical Records Department [address] [place] [address] Emergency Department Summary 03/22/23 MR#: [id number] Acct: [id number] Name: ZORAIDA BARTH Rep #:[id number] : 1950 72 From: Jose Jackson MD PCP: Dr. Osito Davalos MD Status :REG ER Location: ED HPI History of Present Illness Chief Complaint: Chest Pain Narrative Narrative: Patient presents with chest pain that started yesterday, she took nitroglycerin but it did not improve her pain. She describes the pain as sharp and stabbing however now it is more of an ache. She has no radiation to her arm or back. She has no tearing sensation. There is no pleuritic component. She does have some epigastric pain with this. No recent fevers or chills. No recent travel history. No lower extremity edema or calf pain. [facility] Medical History (Updated 03/22/23 @ 13:[address] Jose Jackson MD) Atherosclerotic heart disease of [place] coronary artery without angina pectoris COPD (chronic obstructive pulmonary disease) Dizziness HLD (hyperlipidemia) Hypothyroidism Old myocardial infarction Palpitations Presence of stent in coronary artery (~04/14/14) PVC (premature ventricular contraction) Status post myocardial infarction of inferior wall Home Medications aspirin 81 mg chewable tablet 81 mg PO DAILY@0800 "BLOOD THINNER" 05/14/14 [History Last Taken 09/17/17] sertraline 50 mg tablet 50 mg PO DAILY 04/11/18 [History Last Taken Unknown] lisinopril 20 mg tablet 20 mg PO BID 08/03/20 [History Last Taken Unknown] nitroglycerin 0.4 mg sublingual tablet 0.4 mg sublingual Q5-15M PRN chest pain #25 tabs 08/03/20 [Rx Last Taken Unknown] albuterol sulfate 90 mcg/actuation aerosol inhaler 2 puff inhalation Q6H PRN shortness of breath 11/24/21 [History Last Taken Unknown] fluticasone propionate 50 mcg/actuation nasal spray,suspension 2 spray NASAL DAILY PRN nasal congestion 11/24/21 [History Last Taken Unknown] levothyroxine 150 mcg tablet 150 mcg PO DAILY 11/24/21 [History Last Taken Unknown] amlodipine 10 mg tablet 10 mg PO DAILY 05/25/22 [History Last Taken Unknown] primidone 50 mg tablet 100 mg PO QHS 05/25/22 [History Last Taken Unknown] metoprolol succinate 25 mg tablet,extended release 24 hr 12.5 mg PO DAILY BP CTRL 03/22/23 [History Last Taken Unknown] terbinafine HCl 250 mg tablet 250 mg PO DAILY 03/22/23 [History Last Taken Unknown] Allergy/AdvReac Type Severity Reaction Status Date / Time Yzzsoij-TRD-VwF Reductase Allergy Unknown Other Verified 03/22/23 10:40 Inhibitor [Enphbvp-Wxm-Fvu Reductase Inhibitor] Family History Father CAD (coronary artery disease) Mother CAD (coronary artery disease) Sister Afib Surgical History History of cholecystectomy Presence of coronary angioplasty implant and graft (~04/14/14) Social History Smoking Status: Current every day smoker tobacco type: cigarettes alcohol intake: current Alcohol type: wine substance use type: does not use caffeine: Yes Type: carbonated beverages what type of physical activity do you participate in: aerobics and other details: TaiChi frequency: 1-2 times per week duration: 15-30 minutes/day seatbelt use: always do you feel safe at home: Yes ROS ROS ED ROS Narrative Past medical history: Reviewed, includes CAD, she had 1 stent placed 10 years ago Medications: Reviewed Social history: Continues to smoke Review of systems: All systems negative except as indicated General: No fever Eyes: No visual changes ENT: No upper airway congestion, normal voice Neck: No neck pain Cardiovascular: Chest pain as in HPI Respiratory: No shortness of breath or cough Gastrointestinal: Some epigastric pain. Genitourinary: No dysuria Musculoskeletal: Denies myalgias no difficulty with ambulation Skin: No rash Neurological: No memory loss, confusion or any focal weakness EXAM Physical Exam Narrative Exam Narrative: Physical exam General: She is relatively comfortable in the bed. Head: Normocephalic, Atraumatic Eyes: Conjunctiva not pale ENT: Moist mucous membranes Neck: Supple, Nontender, No lymphadenopathy Cardiovascular: Regular rate, Regular rhythm. I do not appreciate any murmurs. Normal S1 and S2. Respiratory: No distress, CTA bilaterally Abdomen: Soft, Nontender, Nondistended Back: Nontender, Normal Inspection. Negative for: CVA tenderness Extremities: Nontender, No edema Skin: Normal color, No rash Neurological: Alert, Normal Strength, Normal Sensation Psychological: Normal affect Const Vital Signs: 03/22/23 10:39 03/22/23 11:19 03/22/23 11:20 Temperature 97.3 F L Temperature Source Temporal Pulse Rate 84 54 L Respiratory Rate 16 14 Respiratory Effort Normal Non-Labored Blood Pressure 171/81 H 122/59 H Blood Pressure Mean 111 80 Pulse Ox 97 92 Oxygen Delivery Method Room Air Room Air 03/22/23 12:49 Temperature Temperature Source Pulse Rate 56 L Respiratory Rate 18 Respiratory Effort Blood Pressure 128/61 H Blood Pressure Mean 83 Pulse Ox 92 Oxygen Delivery Method Room Air MDM MDM MDM Narrative Medical decision making narrative: Patient presents with epigastric and chest pain. She received a GI cocktail andanalgesics and improved, EKG is unremarkable and she does not meet criteria for admission I talked to her about this. She may have gastritis or other etiologies. Per hospital protocol she is ruled out for acute coronary syndrome. She can follow- up with cardiology and PCP. If anything changes patient is to return to the ED. Lab Data Labs: Laboratory Results - last 24 hr 03/22/23 03/22/23 10:55 13:05 WBC 9.2 RBC 3.93 L Hgb 13.0 Hct 38.7 MCV 98.5 MCH 33.1 H MCHC 33.6 RDW Std Deviation 52.9 H RDW Coeff of Patti 14.6 Plt Count 229 MPV 10.5 Immature Gran % (Auto) 0.900 Neut % (Auto) 70.0 Lymph % (Auto) 19.0 Sawyer % (Auto) 6.1 Eos % (Auto) 3.3 Baso % (Auto) 0.7 Absolute Neuts (auto) 6.4 Absolute Lymphs (auto) 1.74 Nucleated RBC % 0 Sodium 139 Potassium 4.0 Chloride 108 H Carbon Dioxide 26.0 Anion Gap 5 BUN 14 Creatinine 1.01 Estim Creat Clear Calc 42.87 Est GFR (MDRD) Af Amer 70 Est GFR (MDRD) Non-Af 57 L BUN/Creatinine Ratio 13.9 Glucose 109 H Calcium 8.8 Total Bilirubin 0.20 AST 12 L ALT 8 L Alkaline Phosphatase 73 Troponin I High Sens 6 7 Total Protein 7.4 Albumin 3.5 Globulin 3.9 Albumin/Globulin Ratio 0.9 Lipase 41 Radiography Diagnostic Testing: Clinical Impression(s) from Imaging Studies Chest X-Ray 03/22/23 11:10 IMPRESSION: Borderline cardiomegaly. No acute abnormality is seen. Electronically Signed: Sage Dumont MD at 12:14 EDT , Chest x-ray read by me as normal Rhythm Strip Rhythm Strip: Sinus Rhythm Rate: 56 Ectopy: None EKG Initial EKG: Comments: Sinus rhythm with a rate of 56. Normal SC and QTc intervals. No acute ischemic changes. Interpreted by emergency doctor Discharge Plan Triage Chief Complaint: Chest Pain ED Provider: Jose Jackson Dx/Rx/DC Orders Clinical Impression: Epigastric pain, Chest pain Instructions: ED Chest Pain, Uncertain Cause Prescriptions: No Action sertraline 50 mg tablet 50 mg PO DAILY lisinopril 20 mg tablet 20 mg PO BID nitroglycerin 0.4 mg tablet, sublingual 0.4 mg SUBLINGUAL Q5-15M PRN (Reason: chest pain) Qty: 25 3RF Rx Instructions: until response; do not exceed 3 doses per episode levothyroxine 150 mcg tablet 150 mcg PO DAILY albuterol sulfate 90 mcg/actuation HFA aerosol inhaler 2 puff inhalation Q6H PRN (Reason: shortness of breath) amlodipine 10 mg tablet 10 mg PO DAILY Patient Comments: TAKE 1 TABLET BY MOUTH EVERY DAY primidone 50 mg tablet 100 mg PO QHS Patient Comments: TAKE 2 TABLETS BY MOUTH EVERY DAY AT BEDTIME aspirin 81 MG tablet,chewable 81 mg PO DAILY@0800 Patient Comments: [facility] fluticasone propionate 50 mcg/actuation spray,suspension 2 spray NASAL DAILY PRN (Reason: nasal congestion) terbinafine HCl 250 mg tablet 250 mg PO DAILY metoprolol succinate 25 mg tablet extended release 24 hr 12.5 mg PO DAILY Primary Care Provider: Osito Davalos Referrals: Osito Davalos MD [Primary Care Provider] - 3-5 Days Disposition Disposition: Home, Self Care What to do if you have Problems For any increased pain, shortness of breath, bleeding, nausea or vomiting, chestpain, or any unexpected problems, contact your Primary Care Provider. Call [facility] ([phone]) or report to the closest Emergency Room. Call 911 if necessary. 03/22/23 1350 <Electronically signed by Jose Jackson MD> Cosigner Signature (if applicable): CC: Dr. Osito Davalos MD ~ Signed [facility] Work Phone: [phone] 685-399608-07-2023 History of Present illness Narrative* Joe Castillo, PT - 03/20/2023 5:49 PM EDT Episode Visit Count: 2 Therapist That Will Accept/Oversee The Plan Of Care: Joe Castillo PT Start of Care Date: 03/14/23 Onset Date: 03/14/19 Plan of Care Certification Date: 03/14/23 Next Certification Due Date: 04/18/23 Patient Identified by Name and Date of : Yes REHABILITATION AND SPORTS THERAPY PHYSICAL THERAPY TREATMENT NOTE ASSESSMENT: Zoraida Barth tolerated the session with decreased symptoms. She demonstrated improvements in pain and exercise tolerance. The patient will continue to benefit from ongoing skilled physical therapy to progress toward set goals. PLAN FOR NEXT VISIT: Continue with therex for postural stretching and strengthening with flexion directional preference,progress to tolerance. Consider a continuation of manual lumbar belt traction. SUBJECTIVE: Pt reports that overall, her symptoms are mostly unchanged. She reports that she has been compliant with HEP 3x day. She reports that HEP completion has been causing increased pain acrossher buttocks and in her tailbone. Pain: Pain Pain Level: 6 Pain Location: Low Back/Lumbar Spine - Right, Low Back/Lumbar Spine - Left, Buttocks - Right, Buttocks - Left Description: Aching Frequency: Intermittent, Standing, Walking Post Treatment Pain Post Treatment Pain Level: 4 Post Treatment Pain Location: Low Back/Lumbar Spine - Right, Low Back/Lumbar Spine - Left, Buttocks- Right, Buttocks - Left Post Treatment Pain Description: ("better") Post Treatment Symptoms: After session pt reported that she felt better with pain decreased from 6/10 to 4/10. OBJECTIVE MEASURES WITH LEVEL OF FUNCTION: Posture / Alignment Posture: Forward head, Increased thoracic kyphosis, Rounded shoulders TREATMENT: Therapeutic Exercise: 1: [employer] StepOne seat #10 x5 minutes (Pt was educated on the likely source of her symptoms and rationale for proposed plan of care.) 2: supine B SKTC 3x30 seconds 3: supine DKTC 3x30 seconds. (after completion, pt reported that this increased her pain and therefore eliminated from HEP.) 4: *supine LTR 2x10 5: *supine isometric abdominal exercise via shoulder extension 2 seconds 2x10 6: *supine L piriformis stretch 3x30 seconds 7: *supine crunches 2x10 8: *supine posterior pelvic tilts 2x10 Skilled Intervention: Patient was educated in proper exercise technique and purpose for exercises. Reviewed and educated patient on additions/changes for home exercise program as above (*). Skilled judgment was provided in selection of appropriate interventions. Provided written instruction for home exercise program to facilitate proper performance and compliance. Correct performance of therapeutic exercises was facilitated with verbal, visual, and tactile cuing. Patient education as noted. Manual Therapy: Manual Traction: static manual lumbar belt traction with pt supine, LEs on leg rest, caudal pull totolerance x10 minutes. Skilled Intervention: Manual skills to improve joint mobility, ROM, and decrease pain. Utilized anatomy knowledge of the therapist, and assessment of patient's response to intervention. Billing Therapeutic Exercise Treatment Minutes: 35 Manual TherapyTreatment Minutes: 10 Total Treatment Time Minutes (timed/untimed): 45 Session Start Time : 1552 Session Stop Time : 1637 Joe Castillo PT documented in this encounterKet[facility]07-27-2023 History of Present illness Narrative* Sherri Davalos MD - 03/09/2023 11:03 AM EDT Chief Complaint Patient presents with: Follow Up: Arthritis and med follow up on nail fungus tx HPI Zoraida Barth is a 72 year old female who presents here today for Above Complaints. Patient here today to discuss arthritis symptoms. States that her main concern is with chronic lower back or buttock pain. If she walks or stands for long periods her muscles in her buttocks will seize up on her. Was worse when she used to work. Describes pain as intermittent aching pain without radiation down her legs. Treating with stretches at home and taking breaks when she is active. Also using ibuprofen or tylenol PRN which does help with pain. Denies loss of bowel/bladder control, saddleanesthesia, LE weakness, fall/injury to her back. Has seen chiropractor in the past without improvement. Started Terbinafine about 6 weeks ago. LFTs yesterday are normal. Has not noticed much change to onychomycosis of great toes. Past medical history, appointments, medications, allergies reviewed. 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 Delgado Non-rheumatic mitral regurgitation 10/03/2017 Onychomycosis Shingles Tobacco use disorder Previous Surgical History PAST SURGICAL HISTORY Procedure Laterality Date ARTHROSCOPY KNEE DIAGNOSTIC W/WO SYNOVIAL BX SPX Arthroscopy, knee right LAPAROSCOPY SURG CHOLECYSTECTOMY 10/18/2017 Cholecystectomy, lap LIG/TRNSXJ FLP TUBE ABDL/VAG APPR UNI/BI Tubal ligation PAST SURGICAL HISTORY OF 1994 kidney stone extraction: cut ureter STENT - CORONARY 2012 TONSILLECTOMY HX TOTAL ABDOMINAL HYSTERECT W/WO RMVL TUBE OVARY 1991 Hysterectomy, THANG, BSO URETERAL STENT 1994 2nd surgery Family History FAMILY HISTORY Problem Relation Age of Onset Heart Mother Diabetes Mother Hypertension Mother other (unknown) Father Hypertension Sister Thyroid Sister Asthma Sister Skin Cancer Other 1st cousin, unsure of type other (horseshoe kidney) Son Patient Allergies ALLERGIES Allergen Reactions Metformin GI Upset Poison Rahel Extract Other: See Comments Severe rash Ukamwho-Zds-Vbs Red* Other: See Comments cholesterol medications cause liver pain Current Medications Current Outpatient Medications on File Prior to Visit Medication Sig terbinafine HCl (LAMISIL) 250 mg tablet Take 1 tablet by mouth once daily. amLODIPine (NORVASC) 10 mg tablet Take 1 tablet by mouth once daily. sertraline (ZOLOFT) 100 mg tablet Take 1 tablet by mouth once daily. primidone (MYSOLINE) 50 mg tablet Take 2 tablets by mouth daily at bedtime. levothyroxine (SYNTHROID) 150 mcg tablet Take 1 tablet by mouth once daily. Take on empty stomach. For thyroid lisinopril (ZESTRIL, PRINIVIL) 20 mg tablet Take 1 tablet by mouth twice daily. albuterol HFA (VENTOLIN HFA) 90 mcg/actuation inhaler Inhale 2 Puffs as instructed every 4 hours asneeded. ibuprofen (MOTRIN) 200 mg tablet Take 3 tablets by mouth every 6 hours as needed for Pain (Take with food.). aspirin, enteric coated (ASPIRIN, ENTERIC COATED) 81 mg EC tablet Take 81 mg by mouth once daily. NITROGLYCERIN BUCCAL Place between cheek and gum. metoprolol succinate ER (TOPROL XL) 25 mg 24 hr tablet Take 0.5 tablets by mouth once daily. fluticasone (FLONASE) 50 mcg/actuation nasal spray Use 2 Sprays in each nostril once daily. Rinse mouth after use. (Patient not taking: Reported on 03/09/2023) blood sugar diagnostic (BLOOD GLUCOSE TEST) test strip Test blood sugar(s) 1 times daily. Dx: Type 2 DM - Uncontrolled E11.65 Insulin: No Lancets lancets Test blood sugar(s) 1 times daily. Dx: Type 2 DM - Uncontrolled E11.65 Insulin: No Blood-Glucose Meter monitoring kit Glucose Meter of Choice - Kit - Use once daily Dx: Type 2 DM - Uncontrolled E11.65 No current facility-administered medications on file prior to visit. Social History Social History Tobacco Use Smoking status: Every Day Packs/day: 1.00 Years: 40.00 Total pack years: 40.00 Types: Cigarettes Start date: 08/14/1969 Smokeless tobacco: Never Substance Use Topics Alcohol use: No Comment: Rarely Drug use: No Review of Symptoms REVIEW OF SYSTEMS See HPI EXAM: BP 112/64 Pulse 60 Resp 18 Wt 94.6 kg (208 lb 9.6 oz) SpO2 97% BMI 38.15 kg/m General Appearance: Well appearing, alert, in no acute distress, well-hydrated, well nourished.. Skin: Skin color, texture, turgor normal, no suspicious rashes or lesions. Back:no pain to palpation of vertebrae, good flexion and extension, good range of motion, no muscletenderness, reflexes are 2+ and symmetric, motor and sensory appear to be normal, no evidence of scoliosis. Positive SLR bilaterally. Feet: nails notable for Crumbly, Deformed, Hypertrophic, or Yellowish Health Maintenance List ALPHA-1 ANTITRYPSIN DEFICIENCY SCREENING Never done MAMMOGRAM due on 08/13/2021 DILATED RETINAL EXAM due on 01/12/2022 ADVANCE DIRECTIVE DISCUSSION due on 08/14/2022 COVID-19 VACCINE(4 - Additional dose for Mary series) due on 11/25/2022 DTAP,TDAP,TD(1 - Tdap) due on 07/27/2023 LUNG CANCER SCREENING due on 07/27/2023 COLORECTAL CANCER SCREENING due on 07/27/2023 SHINGRIX VACCINE(1 of 2) due on 07/27/2023 INFLUENZA(1) due on 04/14/2023 LDL CHOLESTEROL due on 07/20/2023 HEMOGLOBIN/HEMATOCRIT due on 07/20/2023 URINE ALBUMIN:CREATININE RATIO due on 07/25/2023 HBA1C due on 07/28/2023 DIABETIC FOOT EXAM due on 01/27/2024 ANNUAL PCP TEAM CHRONIC DISEASE VISIT due on 01/27/2024 SERUM CREATININE due on 01/27/2024 BP CONTROLLED (<130/80) due on 01/27/2024 BONE DENSITY Completed SPIROMETRY Completed HEPATITIS C SCREENING Completed PNEUMOCOCCAL: 65+ Completed Data reviewed Component Latest Ref Rng & Units 01/26/2023 03/08/2023 Protein, Total 6.3 - 8.0 g/dL 7.1 7.2 Albumin 3.9 - 4.9 g/dL 4.2 4.4 Calcium 8.5 - 10.2 mg/dL 10.0 Bilirubin, Total 0.2 - 1.3 mg/dL 0.2 <0.2 (L) Alkaline Phosphatase 34 - 123 U/L 91 73 AST 13 - 35 U/L 16 18 ALT 7 - 38 U/L 6 (L) 7 Glucose 74 - 99 mg/dL 86 BUN 7 - 21 mg/dL 21 Creatinine 0.58 - 0.96 mg/dL 1.08 (H) Sodium 136 - 144 mmol/L 139 Potassium 3.7 - 5.1 mmol/L 4.4 Chloride 97 - 105 mmol/L 104 CO2 22 - 30 mmol/L 25 Anion Gap 9 - 18 mmol/L 10 eGFR >=60 mL/min/1.73m 55 (L) Bilirubin, Conjug <0.2 mg/dL <0.2 Hemoglobin A1C 4.3 - 5.6 % 6.2 (H) Estimated Average Glucose mg/dL 131 TSH 0.270 - 4.200 mIU/L 2.660 ASSESSMENT/PLAN: 1. Chronic bilateral low back pain without sciatica - ICD9: 724.2, 338.29, ICD10: M54.50, G89.29 (primary diagnosis) C/o chronic lower back pain without radiculopathy. Discussed she likely has OA in her lower back and would benefit from rest, ice, OTC tylenol, home exercises and PT. Call if symptoms do not improve with PT. - CONSULT TO PHYSICAL THERAPY 2. Onychomycosis - ICD9: 110.1, ICD10: B35.1 Mild improvement with terbinafine. LFTs normal. Finish additional 6 weeks. Recheck at future OV. Sherri Davalos MD [facility] History of Present illness Narrative* Bernice Orozco RN - 02/22/2023 10:43 AM EDT CDM Telephonic Outreach Provider Action/FYI Chronic Disease Management Program Referral This patient expressed interest in finding a program that would support them in achieving their health goals. Send to [facility] PATIENT IDENTIFIED GOAL(S): Stay active PATIENT PREFERRED CONTACT: e mail and phone number confirmed correct in Epic (confirm email/phone accurate) Optional Comments: Bernice Orozco RN February 22, 2023 10:47 AM Kellie @[employer] Contacted for: Goals/Falls/ADL Update Contact made with patient: Yes Patient identified by name and date of . Discussed care with: patient Goal Setting I would like to take some time today to discuss your personal health goals. Yes, patient has goals. Capture the goal the patient wants to accomplish: Stay active and independent. Does the goal align with programs offered at the [facility]? Yes Chronic Disease Management patient goals yes: Exercise Most people know what to do to become healthier, yet struggle to put it into action on their own, It can be hard to maintain a healthy lifestyle, especially when life is so stressful. Can we connect you with a [facility] to find a program that could help you meet your goals? Yes (insert .INSIGHTCDM smartphrase/route to [facility] in Wrap Up) Falls completed:Yes ADL's updated: No Are you experiencing any new or worsening symptoms you need to talk about today? No * Bernice Orozco RN - 02/22/2023 10:06 AM EDT [facility] Telephonic Outreach Provider Action/FYI Contacted for: Routine Telephonic Outreach Contact made with patient: Yes Patient identified by name and date of . Discussed care with patient Are you experiencing any new or worsening symptoms you need to talk about today? No Disease Specific Do you check your blood pressure at home? Yes, Enter readings: 111/60's Do you have new or worsening shortness of breath with activity? No Do you feel like you are dehydrated for any reason, including not being able to eat or drink normally, or having less urine/much darker urine than normal for you? No Do you check your daily weight at home? No and Do you have new or worsening cough? No Do you have new or worsening wheezing? No Do you need to use your rescue (Albuterol) inhaler or nebulizer more often than normal? 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 Routed to: No Action Needed ALLEN Education Provided this Outreach: Yes Bernice Orozco RN February 22, 2023 10:27 AM documented [facility] Evaluation note* Diagnosis Stage 3a chronic kidney disease (HCC)- Primary Mild chronic obstructive pulmonary disease (HCC) Chronic airway obstruction, not elsewhere classified documented in [facility] encounter [facility] History of Present illness Narrative* Bernice Orozco RN - 02/21/2023 1:05 PM EDT CDM Telephonic Outreach Provider Action/FYI Contacted for: Routine Telephonic Outreach Contact made with patient: No, left message. Bernice Orozco RN February 21, 2023 1:07 PM documented in this encounter[facility] Miscellaneous Notes* Telephone Encounter - Haylie Schrader MA - 02/15/2023 10:38 AM EDT Pt seen at [facility] ED on 02/14/23 for corneal abrasion, R. Reports given to Dr. Davalos for review. Haylie Schrader MA documented in this encounterK[facility] History of Present illness Narrative* Hilario Howard APRN.CNP - 02/14/2023 3:27 PM EDT Nontoxic-appearing female presents urgent care chief complaint eye injury. Patient states few minutes ago she was doing garden work when she leaned forward and a stick poked her in her right eye. Patient states pain is 9 out of 10. Patient states she is having visual issues with his eye. States visual acuity has worsened. Is having a hard time seeing out of right eye. With patient's presenting symptoms I recommended patient be seen in the ED for further evaluation care. Patient verbalized understand agrees with plan of care. Hilario Howard APRN.VICKIE documented in this [facility] Discharge summary Author Jorge Riggs [facility] February 14, 2023 5:14pm Note Date/Time February 14, 2023 4:39p [facility] Medical Records Department [address] [place] [address] Emergency Department Summary 02/14/23 MR#: [id number] Acct: [id number] Name: ZORAIDA BARTH Rep #:[id number] : 1950 72 From: Jorge Jin PCP: Dr. Osito Daavlos MD Status :PRE ER Location: ED HPI History of Present Illness Chief Complaint: Eye Problem [facility] Medical History (Updated 02/14/23 @ 17:[address] Jorge Riggs, DO) Atherosclerotic heart disease of [place] coronary artery without angina pectoris COPD (chronic obstructive pulmonary disease) Dizziness HLD (hyperlipidemia) Hypothyroidism Old myocardial infarction Palpitations Presence of stent in coronary artery (~04/14/14) PVC (premature ventricular contraction) Status post myocardial infarction of inferior wall Home Medications aspirin 81 mg chewable tablet 81 mg PO DAILY@0800 "BLOOD THINNER" 05/14/14 [History Last Taken 09/17/17] sertraline 50 mg tablet 50 mg PO DAILY 04/11/18 [History Last Taken Unknown] lisinopril 20 mg tablet 20 mg PO BID 08/03/20 [History Last Taken Unknown] nitroglycerin 0.4 mg sublingual tablet 0.4 mg sublingual Q5-15M PRN chest pain #25 tabs 08/03/20 [Rx Last Taken Unknown] albuterol sulfate 90 mcg/actuation aerosol inhaler 2 puff inhalation Q6H PRN 11/24/21 [History Last Taken Unknown] fluticasone propionate 50 mcg/actuation nasal spray,suspension 2 spray NASAL DAILY PRN 11/24/21 [History Last Taken Unknown] levothyroxine 150 mcg tablet 150 mcg PO DAILY 11/24/21 [History Last Taken Unknown] amlodipine 10 mg tablet 10 mg PO DAILY 05/25/22 [History Last Taken Unknown] primidone 50 mg tablet 100 mg PO QHS 05/25/22 [History Last Taken Unknown] metoprolol succinate 25 mg tablet,extended release 24 hr 25 mg PO DAILY BP CTRL #90 tabs 11/11/22 [Rx Last Taken Unknown] ciprofloxacin HCl 0.3 % eye drops 1 drp RIGHT EYE Q4H 5 days #10 mL 02/14/23 [Rx Last Taken Unknown] Allergy/AdvReac Type Severity Reaction Status Date / Time Fhblkof-LIA-AxW Reductase Allergy Unknown Other Verified 02/14/23 15:33 Inhibitor [Pouidqi-Bju-Kwe Reductase Inhibitor] Family History Father CAD (coronary artery disease) Mother CAD (coronary artery disease) Sister Afib Surgical History History of cholecystectomy Presence of coronary angioplasty implant and graft (~04/14/14) Social History Smoking Status: Current every day smoker tobacco type: cigarettes alcohol intake: current Alcohol type: wine substance use type: does not use caffeine: Yes Type: carbonated beverages what type of physical activity do you participate in: aerobics and other details: TaiChi frequency: 1-2 times per week duration: 15-30 minutes/day seatbelt use: always do you feel safe at home: Yes EXAM Physical Exam Const Vital Signs: 02/14/23 15:33 Temperature 97 F L Temperature Source Temporal Pulse Rate 64 Respiratory Rate 14 Blood Pressure 146/93 H Blood Pressure Mean 110 Pulse Ox 94 Oxygen Delivery Method Room Air MDM MDM MDM Narrative Medical decision making narrative: HISTORY OF PRESENT ILLNESS: 72-year-old female here with concern for eye injury while gardening. Patient states a branch injured her right eye. She does not wear contacts. REVIEW OF SYSTEMS: Pertinent positives: Eye injury Pertinent negatives: Loss of vision PHYSICAL EXAM: Nursing triage notes reviewed, Vital signs reviewed Constitutional: please see mdm HENT: MMM Eyes: Pupils equal round and reactive to light, Extraocular muscles intact, visual greenwood intact, visual acuity 20/40 bilaterally, fluorescein stain with noobvious Tanisha sign with there is a: Abrasion noted at 3 o'clock position. No obvious foreign body with lid eversion Neck: No stridor, no JVD, full neck ROM Lungs: Clear to auscultation, No wheezing or rales. No increased work of breathing, no conversational dyspnea, no accessory muscle use, no nasal flaring. No respiratory distress noted Heart: Regular rate and rhythm, No murmurs, No rubs and No gallops, 2+ distal pulses (radial, femoral, posterior tibial) in all extremities Neuro: No focal neurological deficits, cranial nerves II through XII intact, 5/5strength in all extremities. Intact sensation to light touch in all extremities,2+ reflexes bilateral patella tendons. Normal gait. No ataxia. Skin: No rash or lesions noted MEDICAL DECISION MAKING: Chief Complaint: Eye pain ALL IMAGES (IF OBTAINED) HAVE BEEN PERSONALLY REVIEWED AND INTERPRETED BY MYSELF. MDM Narrative: Patient was hemodynamically stable, afebrile, nontoxic-appearing I considered the following differential diagnosis: Corneal abrasion, globe rupture, foreign body in the eye Exam consistent with corneal abrasion we will give prophylactic antimicrobial drops. Had a risk-benefit discussion with the patient in regards to ongoing tetracaine treatment. Alerted her of the risk of corneal ulceration. Patient accepted risk decided to take tetracaine home for pain control she agreed to only use it twice a day 1 drop each for the next 5 days. The patient and/or family, caregivers express understanding. The patient and/orfamily, caregivers agrees with the plan. Total critical care time today provided was at least 0 minutes. This excludes separately billable procedures. Critical care time (if documented) is secondary to the patient having high probability of clinically significant/life threatening deterioration in the patient's condition which required my urgent intervention. Shared decision making: I will have a discussion with the patient and or visitors regarding risk/benefits of further testing or admission. They will be made aware of of the risk/benefits inherent in this decision they will be given the opportunity to voice understanding. Discharge Plan Triage Chief Complaint: Eye Problem Other Complaint: Headache ED Provider: Jorge Riggs Dx/Rx/DC Orders Clinical Impression: Abrasion, corneal Instructions: ED Corneal Abrasion Prescriptions: New ciprofloxacin HCl 0.3 % drops 1 drp RIGHT EYE Q4H 5 Days Qty: 10 0RF Rx Instructions: 1 drp into the Right EYE; No Action sertraline 50 mg tablet 50 mg PO DAILY lisinopril 20 mg tablet 20 mg PO BID nitroglycerin 0.4 mg tablet, sublingual 0.4 mg SUBLINGUAL Q5-15M PRN (Reason: chest pain) Qty: 25 3RF Rx Instructions: until response; do not exceed 3 doses per episode levothyroxine 150 mcg tablet 150 mcg PO DAILY albuterol sulfate 90 mcg/actuation HFA aerosol inhaler 2 puff inhalation Q6H PRN amlodipine 10 mg tablet 10 mg PO DAILY Patient Comments: TAKE 1 TABLET BY MOUTH EVERY DAY primidone 50 mg tablet 100 mg PO QHS Patient Comments: TAKE 2 TABLETS BY MOUTH EVERY DAY AT BEDTIME aspirin 81 MG tablet,chewable 81 mg PO DAILY@0800 Patient Comments: [facility] fluticasone propionate 50 mcg/actuation spray,suspension 2 spray NASAL DAILY PRN metoprolol succinate 25 mg tablet extended release 24 hr 25 mg PO DAILY Qty: 90 3RF Primary Care Provider: Osito Davalos Referrals: Hilario South MD [Med Staff - Active Staff] - Activity Restrictions/Additional Instructions: Thank you for trusting us with your care today! Please take Tylenol (2 pills, 650 mg), ibuprofen (2 pills, 400 mg) every 6 hoursas needed for pain and fever control. Please take eyedrops as prescribed. Please use tetracaine only 1 drop in the affected eye only twice a day. Only use this for the next 5 days. Please return to the emergency department if your symptoms change or worsen. Specifically develop loss of vision, blurry vision, increasing pain. Please follow with your primary care physician for further outpatient evaluationand management. Disposition Disposition: Home, Self Care What to do if you have Problems For any increased pain, shortness of breath, bleeding, nausea or vomiting, chestpain, or any unexpected problems, contact your Primary Care Provider. Call [facility] ([phone]) or report to the closest Emergency Room. Call 911 if necessary. 02/14/23 1714 <Electronically signed by Jorge Riggs DO> Cosigner Signature (if applicable): CC: Dr. Osito Davalos MD ~ Signed [facility] Work Phone: 1(919) 272-307406-17-2023 Evaluation note* Diagnosis Type 2 diabetes mellitus with stage 3a chronic kidney disease, without long-term current use of insulin (HCC)- Primary Onychomycosis Dermatophytosis of nail Coronary artery disease involving [place] coronary artery of [place] heart without angina pectoris Essential hypertension Unspecified essential hypertension Mild episode of recurrent major depressive disorder (HCC) Horseshoe kidney Other specified congenital anomaly of kidney Stage 3a chronic kidney disease (HCC) Acquired hypothyroidism Unspecified hypothyroidism Tobacco use disorder Mild chronic obstructive pulmonary disease (HCC) Chronic airway obstruction, not elsewhere classified Body mass index (BMI) 40.0-44.9, adult (HCC) Parkinsonism, unspecified Parkinsonism type (HCC) [facility] Miscellaneous Notes* Telephone Encounter - Yvonne Martinez RN - 01/27/2023 4:54 PM EDT Patient notified of results and provider's instructions. Patient verbalizes understanding. Yvonne Martinez RN * Telephone Encounter - Khushboo Stokes LPN - 01/27/2023 2:38 PM EDT Message left for patient to return call for update on results and recommendations. * Telephone Encounter - Khushboo Stokes LPN - 01/27/2023 2:37 PM EDT ----- Message from Sherri Davalos MD sent at 01/27/2023 8:34 AM EDT ----- DM controlled on current regimen. Thyroid in good range. Kidney function is down, similar to 1 yearago. Recommend low sodium diet, avoidance of NSAIDs, increased water intake. Recheck at OV in 6 weeks. documented in [facility] History of Present illness Narrative* Sherri Davalos MD - 01/26/2023 2:58 PM EDT Chief Complaint Patient presents with: Follow Up: 6 month HPI Zoraida Barth is a 72 year old female who presents here today for Above Complaints. DIABETES MELLITUS: Ms. Barth was last seen 6 months ago. Since our last visit she denies excessive thirst or increased frequency of urination, numbness, tingling or pain in extremities, new or unusual visual symptoms, and low sugar/hypoglycemic reactions. Follows a diabetic diet some of the time. Diet controlled. She reports checking her glucose on a once a day schedule with sugars in the fasting<120 range. Patient's last HgA1C was Hemoglobin A1C (%) Date Value 05/20/2022 6.2 09/14/2021 6.3 03/12/2021 6.6 ) Last Ophthalmology exam was within the past 12 months. Due for recheck in February. Last Podiatry exam was more than 12 months ago CAD s/p PTCA with ALEXIS to RCA: last OV with cardiology reviewed. No changes to regimen. Intolerant to statins. F/u in 1 year. Asymptomatic on current regimen still. BP well controlled on current regimen. Hypothyroidism: taking synthroid daily on a daily basis. Asymptomatic on current dosage. Due for TSH. Depression: controlled on current dose of zoloft. Still smoking. Down to 1/2 pack per day. Does not want help with cessation. Past medical history, appointments, medications, allergies reviewed. 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 Delgado Non-rheumatic mitral regurgitation 10/03/2017 Shingles Tobacco use disorder Previous Surgical History PAST SURGICAL HISTORY Procedure Laterality Date ARTHROSCOPY KNEE DIAGNOSTIC W/WO SYNOVIAL BX SPX Arthroscopy, knee right LAPAROSCOPY SURG CHOLECYSTECTOMY 10/18/2017 Cholecystectomy, lap LIG/TRNSXJ FLP TUBE ABDL/VAG APPR UNI/BI Tubal ligation PAST SURGICAL HISTORY OF 1994 kidney stone extraction: cut ureter STENT - CORONARY 2012 TONSILLECTOMY HX TOTAL ABDOMINAL HYSTERECT W/WO RMVL TUBE OVARY 1991 Hysterectomy, THANG, BSO URETERAL STENT 1994 2nd surgery Family History FAMILY HISTORY Problem Relation Age of Onset Heart Mother Diabetes Mother Hypertension Mother other (unknown) Father Hypertension Sister Thyroid Sister Asthma Sister Skin Cancer Other 1st cousin, unsure of type other (horseshoe kidney) Son Patient Allergies ALLERGIES Allergen Reactions Metformin GI Upset Poison Rahel Extract Other: See Comments Severe rash Aafntnf-Seo-Usj Red* Other: See Comments cholesterol medications cause liver pain Current Medications Current Outpatient Medications on File Prior to Visit Medication Sig amLODIPine (NORVASC) 10 mg tablet Take 1 tablet by mouth once daily. sertraline (ZOLOFT) 100 mg tablet Take 1 tablet by mouth once daily. primidone (MYSOLINE) 50 mg tablet Take 2 tablets by mouth daily at bedtime. levothyroxine (SYNTHROID) 150 mcg tablet Take 1 tablet by mouth once daily. Take on empty stomach. For thyroid lisinopril (ZESTRIL, PRINIVIL) 20 mg tablet Take 1 tablet by mouth twice daily. albuterol HFA (VENTOLIN HFA) 90 mcg/actuation inhaler Inhale 2 Puffs as instructed every 4 hours asneeded. fluticasone (FLONASE) 50 mcg/actuation nasal spray Use 2 Sprays in each nostril once daily. Rinse mouth after use. blood sugar diagnostic (BLOOD GLUCOSE TEST) test strip Test blood sugar(s) 1 times daily. Dx: Type 2 DM - Uncontrolled E11.65 Insulin: No Blood-Glucose Meter monitoring kit Glucose Meter of Choice - Kit - Use once daily Dx: Type 2 DM - Uncontrolled E11.65 ibuprofen (MOTRIN) 200 mg tablet Take 3 tablets by mouth every 6 hours as needed for Pain (Take with food.). aspirin, enteric coated (ASPIRIN, ENTERIC COATED) 81 mg EC tablet Take 81 mg by mouth once daily. metoprolol succinate ER (TOPROL XL) 25 mg 24 hr tablet Take 0.5 tablets by mouth once daily. Lancets lancets Test blood sugar(s) 1 times daily. Dx: Type 2 DM - Uncontrolled .65 Insulin: No NITROGLYCERIN BUCCAL Place between cheek and gum. No current facility-administered medications on file prior to visit. Social History Social History Tobacco Use Smoking status: Every Day Packs/day: 1.00 Years: 40.00 Pack years: 40.00 Types: Cigarettes Start date: 08/14/1969 Smokeless tobacco: Never Substance Use Topics Alcohol use: No Comment: Rarely Drug use: No Review of Symptoms REVIEW OF SYSTEMS GENERAL: No weight loss, malaise or fevers RESPIRATORY: Negative for cough, hemoptysis, wheezing, COPD, dyspnea or shortness of breath CARDIOVASCULAR: Negative for chest pain, leg swelling, hypertension, CHF or palpitations GI: No nausea, vomiting, or diarrhea SKIN: Negative for lesions, rash, and itching ENDOCRINE: Negative for cold or heat intolerance, polyuria, polydipsia and goiter EXAM: BP 122/64 Pulse 64 Resp 18 Wt 92.5 kg (204 lb) SpO2 94% BMI 37.31 kg/m General Appearance: Well appearing, alert, in no acute distress, well-hydrated, well nourished.. Skin: Skin color, texture, turgor normal, no suspicious rashes or lesions. Lungs: Lungs clear to auscultation. No wheezing, rhonchi, rales.. Heart: RRR without murmur, gallop, or rubs. No ectopy. Abdomen: Normal abdominal exam, Abdomen soft, non-tender. Bowel sounds normal. No masses, organomegaly. Extremities: No deformities, edema, skin discoloration, clubbing or cyanosis. Good capillary refill. . Feet: Shoes and socks removed, normal distal pulses, sensitive to 10 gm monofilament, and nails notable for Crumbly, Deformed, Hypertrophic, or Yellowish Health Maintenance List MAMMOGRAM due on 08/13/2021 DILATED RETINAL EXAM due on 01/12/2022 DIABETIC FOOT EXAM due on 03/17/2022 ADVANCE DIRECTIVE DISCUSSION due on 08/14/2022 HBA1C due on 11/18/2022 DTAP,TDAP,TD(1 - Tdap) due on 07/27/2023 LUNG CANCER SCREENING due on 07/27/2023 COLORECTAL CANCER SCREENING due on 07/27/2023 SHINGRIX VACCINE(1 of 2) due on 07/27/2023 LDL CHOLESTEROL due on 07/20/2023 SERUM CREATININE due on 07/20/2023 URINE ALBUMIN:CREATININE RATIO due on 07/25/2023 ANNUAL PCP TEAM CHRONIC DISEASE VISIT due on 09/28/2023 BP CONTROLLED (<130/80) due on 09/28/2023 BONE DENSITY Completed INFLUENZA Completed HEPATITIS C SCREENING Completed COVID-19 VACCINE Completed PNEUMOCOCCAL: 65+ Completed Data reviewed Component Latest Ref Rng & Units 05/20/2022 07/20/2022 07/25/2022 Protein, Total 6.3 - 8.0 g/dL 7.4 Albumin 3.9 - 4.9 g/dL 4.3 Calcium 8.5 - 10.2 mg/dL 9.6 Bilirubin, Total 0.2 - 1.3 mg/dL <0.2 (L) Alkaline Phosphatase 34 - 123 U/L 93 AST 13 - 35 U/L 15 ALT 7 - 38 U/L <5 (L) Glucose 74 - 99 mg/dL 108 (H) BUN 7 - 21 mg/dL 10 Creatinine 0.58 - 0.96 mg/dL 0.93 Sodium 136 - 144 mmol/L 142 Potassium 3.7 - 5.1 mmol/L 4.5 Chloride 97 - 105 mmol/L 106 (H) CO2 22 - 30 mmol/L 24 Anion Gap 9 - 18 mmol/L 12 eGFR >=60 mL/min/1.73m 66 WBC 3.70 - 11.00 k/uL 11.08 (H) RBC 3.90 - 5.20 m/uL 4.29 Hemoglobin 11.5 - 15.5 g/dL 13.7 Hematocrit 36.0 - 46.0 % 43.0 MCV 80.0 - 100.0 fL 100.2 (H) MCH 26.0 - 34.0 pg 31.9 MCHC 30.5 - 36.0 g/dL 31.9 RDW-CV 11.5 - 15.0 % 14.0 Platelet Count 150 - 400 k/uL 303 MPV 9.0 - 12.7 fL 11.6 Absolute nRBC <0.01 k/uL <0.01 Total Cholesterol, Nonfasting <200 mg/dL 246 (H) Triglycerides, Nonfasting <150 mg/dL 99 HDL Cholesterol, Nonfasting >39 mg/dL 34 (L) LDL Cholesterol, Nonfasting <100 mg/dL 192 (H) Non HDL Cholesterol, Nonfasting <130 mg/dL 212 (H) VLDL Cholesterol, Nonfasting <30 mg/dL 20 Total Chol/HDL Ratio, Nonfasting <5.10 mg/dL 7.24 (H) LDL/HDL Ratio, Nonfasting <2.54 mg/dL 5.65 (H) Creatinine, Ur Random (UCRR) 20.0 - 300.0 mg/dL 76.5 Albumin, Urine Random mg/L 146.4 Albumin/Creat Ratio <30 mg/g 191 (H) Hemoglobin A1C 4.3 - 5.6 % 6.2 (H) Estimated Average Glucose mg/dL 131 ASSESSMENT/PLAN: 1. Type 2 diabetes mellitus with stage 3a chronic kidney disease, without long- term current use of insulin ([facility]) - ICD9: 250.40, 585.3, ICD10: E11.22, N18.31 (primary diagnosis) - Controlled - Continue current medications - Blood glucose monitoring on a once daily schedule - Counseled on healthy diet and regular exercise - Discussed need for and benefit of weight loss. BMI 37.31 kg/(m^2) - Smoking cessation encouraged; discussed risks to health and quitting strategies. Patient is not ready to quit - Discussed diabetic education issues of diabetes complications and monitoring required, hypoglycemic/hyperglycemic symptoms, and medication-specific side effects and monitoring - Follow up in 3 months, sooner should any other issues arise. - COMP METABOLIC PANEL - HGB A1C 2. Onychomycosis - ICD9: 110.1, ICD10: B35.1 Start 90 days terbinafine after check LFTs. Repeat in 6 weeks. - HEPATIC FUNCTION PNL 3. Coronary artery disease involving [place] coronary artery of [place] heart without angina pectoris- ICD9: 414.01, ICD10: I25.10 Asymptomatic on regimen per cardiology. Continue as prescribed. F/u with recommendations. 4. Essential hypertension - ICD9: 401.9, ICD10: I10 - Controlled - Continue current medications - Recommend home blood pressure monitoring, to bring results to next visit - Encouraged sodium restriction, DASH or Mediterranean diet - Recommend regular aerobic exercise 5. Mild episode of recurrent major depressive disorder (HCC) - ICD9: 296.31, ICD10: F33.0 Controlled on Zoloft 6. Horseshoe kidney - ICD9: 753.3, ICD10: Q63.1 Recheck CMP. 7. Stage 3a chronic kidney disease (HCC) - ICD9: 585.3, ICD10: N18.31 8. Acquired hypothyroidism - ICD9: 244.9, ICD10: E03.9 - Instructed patient on importance of taking on an empty stomach either first thing in the morning or at bedtime. - check TSH today - continue current dose of Synthroid 0.150 mg - TSH BLD 9. Tobacco use disorder - ICD9: 305.1, ICD10: F17.200 - Cessation encouraged. - Physiologic and physical aspects of tobacco addiction as well as strategies for quitting were discussed. - Counseling was given focusing on the harmful effects of this addiction especially given the patient's medical condition(s) which will be worsened because of the chemicals in tobacco. 10. Mild chronic obstructive pulmonary disease (HCC) - ICD9: 496, ICD10: J44.9 Asymptomatic. Recommend smoking cessation. 11. Body mass index (BMI) 40.0-44.9, adult (HCC) - ICD9: V85.41, ICD10: Z68.41 Weight decreasing - Behavioral intervention 12. Parkinsonism, unspecified Parkinsonism type (HCC) - ICD9: 332.0, ICD10: G20 Following up with neurology. Does not appear to be related to parkinsons with right hand tremor. Continue with primidone and patient is to contact cardiology about changing metoprolol to propranolol. Sherri Davalos MD documented in this encounterK[facility]-13-[facility]23 Miscellaneous Notes* Telephone Encounter - Alix Chew LPN - 01/24/2023 9:47 AM EDT [facility] sent a request for potential med change - requesting propranolol - notes placedon desk for review documented in this encounterK[facility]05-15-2023 History of Present illness Narrative* Sherri Davalos MD - 12/26/2022 1:15 PM EDT Rx sent as requested. Continue current regimen. * Monika Ley RN - 12/26/2022 11:22 AM EDT [facility] Telephonic Outreach Provider Christos/FRANCOISE Patient saw neuro and was instructed: When you see your braze operator next, you could ask if changing metoprolol to propranolol would be ok. Was told changing may help with her tremors Patient's braze operator left and she needs to establish with a new one In the mean time her metoprolol Rx has Can you please address this and send Rx for whichever is preferred Also needs refills on sertraline and amlodipine which both have expiring Rx Patient is scheduled for follow up with pcp on 01/26 Contacted for: Routine Telephonic Outreach Contact made with patient: Yes Patient identified by name and date of . Discussed care with patient Are you experiencing any new or worsening symptoms you need to talk about today? No Disease Specific Do you check your blood pressure at home? Yes, Enter readings: WNL Do you have new or worsening shortness of breath with activity? No Do you feel like you are dehydrated for any reason, including not being able to eat or drink normally, or having less urine/much darker urine than normal for you? No Do you check your daily weight at home? Yes, Have you noticed a sudden gain in weight greater than three pounds in a day or three pounds in a week? 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 Routed to: No Action Needed ALLEN Education Provided this Outreach: No Monika Ley RN December 26, 2022 11:52 AM documented in this encounterK[facility]04-21-2023 Instructions* Patient Instructions* Dean Dubois MD - 12/02/2022 12:32 PM EDT Continue the same dose of primidone today. When you see your braze operator next, you could ask if changing metoprolol to propranolol would be ok. documented in this encounterK[facility]04-21-2023 History of Present illness Narrative* Dean Dubois MD - 12/02/2022 12:14 PM EDT FOLLOW UP NOTE Subjective Zoraida Barth is a 72 year old female who presents for follow up. CC: Tremor Summary of prior care: Right-handed female with a history of DM, HTN, HLD, and CAD with stent who presents for evaluation of tremor. Her examination demonstrates right hand tremor most prominently with writing or in some positions. No concern for PD. 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 Explained these different diagnoses and treatment approach. She is already on low dose metoprolol, if able to change to propranolol might find more tremor benefit with it. History of depression and anxiety, would need to watch for mood changesif pushing dose of beta juan j. Will try primidone titrating to 100 mg QHS, discussed side effectsand use. In future multiple other medications that could be tried. HPI Current Issues 1. Tremor - Primidone has been somewhat beneficial - Makes her a bit edgy thinking about increasing it - If she gets really upset tremor more severe - if she is writing sometimes is fine other times very shaky - No known side effects - Take 100 mg QHS - Still on low dose of metoprolol - DM has been good, no recent lows Current Outpatient Medications Medication Sig Dispense Refill primidone (MYSOLINE) 50 mg tablet TAKE 2 TABLETS BY MOUTH AT BEDTIME 180 tablet 0 sertraline (ZOLOFT) 100 mg tablet Take 1 tablet by mouth once daily. 90 tablet 1 levothyroxine (SYNTHROID) 150 mcg tablet Take 1 tablet by mouth once daily. Take on empty stomach. For thyroid 90 tablet 1 lisinopril (ZESTRIL, PRINIVIL) 20 mg tablet Take 1 tablet by mouth twice daily. 180 tablet 3 albuterol HFA (VENTOLIN HFA) 90 mcg/actuation inhaler Inhale 2 Puffs as instructed every 4 hours asneeded. 1 Each 2 amLODIPine (NORVASC) 10 mg tablet Take 1 tablet by mouth once daily. 90 tablet 1 metoprolol succinate ER (TOPROL XL) 25 mg 24 hr tablet Take 0.5 tablets by mouth once daily. 45 tablet 1 fluticasone (FLONASE) 50 mcg/actuation nasal spray Use 2 Sprays in each nostril once daily. Rinse mouth after use. 1 Each 1 blood sugar diagnostic (BLOOD GLUCOSE TEST) test strip Test blood sugar(s) 1 times daily. Dx: Type 2 DM - Uncontrolled E11.65 Insulin: No 50 Strip 11 Lancets lancets Test blood sugar(s) 1 times daily. Dx: Type 2 DM - Uncontrolled E11.65 Insulin: No 100 Each 11 Blood-Glucose Meter monitoring kit Glucose Meter of Choice - Kit - Use once daily Dx: Type 2 DM - Uncontrolled E11.65 1 Each 0 ibuprofen (MOTRIN) 200 mg tablet Take 3 tablets by mouth every 6 hours as needed for Pain (Take with food.). 0 aspirin, enteric coated (ASPIRIN, ENTERIC COATED) 81 mg EC tablet Take 81 mg by mouth once daily. NITROGLYCERIN BUCCAL Place between cheek and gum. No current facility-administered medications for this visit. REVIEW OF SYSTEMS Her ROS was positive for that mentioned in the HPI. Otherwise a 10-point ROS was completed and was negative. Objective OBJECTIVE 12/02/22 1214 BP: 144/62 BP Site: Left Arm BP Position: Sitting BP Cuff Size: Large Adult Pulse: 61 SpO2: 95% Weight: 94.3 kg (208 lb) Height: 157.5 cm (5' 2") General: General Appearance: Well appearing, alert, in no acute distress, well-hydrated, well nourished. Head: Normocephalic Neck: Supple Heart: RRR Neurologic Exam: Mental Status: She is alert. She is fully oriented. Attention is intact. Memory is intact. Languageshows normal comprehension and fluency. Affect is appropriate. Cranial Nerves: Extraocular movements show full and smooth pursuits. No nystagmus. Visual [place] are full to confrontation. Facial activation is symmetric. Hearing is intact to conversation. There isno hypomimia. There is no hypophonia. There is no dysarthria. Tongue is midline. Palate elevates sym metrically. Shoulder shrug is normal. Motor: Muscle bulk is normal. Rapid alternating movements are normal. Muscle power is full. No rest tremor. Rare infrequent postural tremor of right hand when extended but does come out a bitmore when arms flexed to body and pronated though does also come out in supination as well. Right hand tremor with writing though able to write her name clearly. Right hand spiral large amplitude tremor, left hand mildly tremulous without axis. Coordination: Finger to nose is smooth without ataxia. Gait/station: Normal DATA REVIEW Actual films/image/tracing reviewed and summarized as follows: n/a Old records reviewed and summarized as follows: TSH 0.814 Assessment/Plan ASSESSMENT & PLAN: Zoraida Barth is a 72 year old right-handed female with a history of DM, HTN, HLD, and CAD with stent who presents for evaluation of tremor. Her examination demonstrates right hand tremor most prominently with writing or in some positions. 1. Tremor - Happy with current level of control, offered increased dose of primidone but doesn't want to increase today. - If she was able to with her medical / cardiology providers, changing metoprolol to propranolol may help the tremor. Follow-up: 6 months Risks & Side Effects of Newly Prescribed Medication, Discussed with Patient: n/a Dean Dubois MD [facility] documented in this encounterK[facility]04-17-2023 History of Present illness Narrative* Monika Ley RN - 11/28/2022 2:15 PM EDT [facility] Telephonic Outreach Provider Action/FYI Seasonal allergies are bothering her Swollen lymph node under her arm. Putting warm compress on If continues will get evaluated Contacted for: Routine Telephonic Outreach Contact made with patient: Yes Patient identified by name and date of . Discussed care with patient Are you experiencing any new or worsening symptoms you need to talk about today? No Disease Specific Do you check your blood pressure at home? Yes, Enter readings: ok Do you have new or worsening shortness of breath with activity? No Do you feel like you are dehydrated for any reason, including not being able to eat or drink normally, or having less urine/much darker urine than normal for you? No Do you check your daily weight at home? No Based on waiter/waitress cocktail lounge, the following disposition is advised: Symptoms present, not severe. Routed to: No Action Needed ALLEN Education Provided this Outreach: No Monika Ley RN November 28, 2022 2:21 PM documented in this encounterK[facility]04-14-2023 Miscellaneous Notes* Telephone Encounter - Farzaneh Gamez - 11/25/2022 1:32 PM EDT Called patient and made appt. * Telephone Encounter - Dean Dubois MD - 11/25/2022 1:13 PM EDT Approved 90 days to try to get her to an appointment, def still needs to schedule. * Telephone Encounter - Tereza Elizondo - 11/24/2022 11:18 AM EDT 1st attempt, MC sent. * Telephone Encounter - Brooke Zuñiga RN - 11/24/2022 10:57 AM EDT Patient was last seen by Dr. Dubois 12/14/21 and instructed to follow up in 4 months. Patient did not show to his Sept visit and is overdue for follow up. PSS please offer appointment with Dr. Dubois. Dr. Dubois please see refill request. Requested Prescriptions Pending Prescriptions Disp Refills primidone (MYSOLINE) 50 mg tablet [Pharmacy Med Name: PRIMIDONE 50 MG TABLET] 180 tablet 1 Sig: TAKE 2 TABLETS BY MOUTH AT BEDTIME documented in this encounterK[facility]04-13-2023 History of Present illness Narrative* Himanshu Lorenzana - 11/24/2022 1:20 PM EDT POPULATION HEALTH NAVIGATION OUTREACH Action/FYI Past due for dilated retinal exam, mammogram, AD, HBA1C, colonoscopy. Declined scheduling Patient Identified by Name and : YES, via phone Outreach Outcome/Action Spoke to patient / parent / legal guardian: Patient declined Did you use a PCP flex slot to schedule this appointment? N/A Reason for Outreach Care Gap or Scheduling/Wellness visits Payer: Payor: [employer] / Plan: [employer] HMO / Product Type: HMO / Care Gap Reviewed:: Breast Cancer screening Colorectal Cancer Screening Diabetic Eye Exam HBA1C Reminder: Reminder note to check Health Maintenance for items below Health Maintenance items due: MAMMOGRAM due on 08/13/2021 DILATED RETINAL EXAM due on 01/12/2022 DIABETIC FOOT EXAM due on 03/17/2022 ADVANCE DIRECTIVE DISCUSSION due on 08/14/2022 HBA1C due on 11/18/2022 Navigation Signature: Himanshu Lorenzana November 24, 2022 1:20 PM documented in this encounterK[facility]03-22-2023 Miscellaneous Notes* Telephone Encounter - YANET Morin - 11/02/2022 9:06 AM EDT Josselyn mailed Advance Directives-Healthcare POA and brochure to patient home. * Telephone Encounter - YANET Morin - 11/01/2022 10:11 AM EDT Sw spoke with patient regarding advance directives. Patient notes that she has Living Will forms but does not have Healthcare POA. Sw notes that she can mail patient Healthcare POA and brochure that discusses differences regardingHealthcare POA and Living Will and how forms can then be taken to doctor office to have scanned to patient chart. Sw confirmed patient address and will work on sending forms to patient home. Sw noted that she willalso attach Sw main number at [facility] for patient to reach back out with any further needs. documented in this encounterK[facility]03-20-2023 History of Present illness Narrative* Monika Ley RN - 10/31/2022 1:20 PM EDT INSIGHT [facility] TELEPHONIC OUTREACH Provider Action/FYI: Patient has living will documents and has some questions Asking whom she can contact Will route to social media sr strategy manager for resources Contact made with patient: Yes Patient identified by name and . Discussed care with patient It s nice talking to you again. As a reminder, this is our monthly check-in where I will be asking you questions about your health. This will only take a few minutes of your time. Is this a good time? Yes Symptoms What Chronic Disease(s) does the patient have: CKD Do you check your blood pressures at home? Yes, Enter readings: 130/68 Do you have new or worse shortness of breath with activity? No Do you feel like you are dehydrated for any reason, including not being able to eat or drink normally, or having less urine/much darker urine than normal for you? No Do you check your daily weight at home? Yes, Have you noticed a sudden gain in weight greater than three pounds in a day or three pounds in a week? No Are you having any other symptoms that your PCP needs to know about? No Symptom Escalation ALLEN Education Ordered -: No The patient required an escalation for symptom(s)? No Medications Do you have any questions about taking your medication or which medications you should be on? No Do you need any medication refills at this time, including any of the medications you might take only when needed? No Social We would like to make sure you have what you need so that your basic needs are met- including your personal safety, food, housing, transportation and medications? Would you like to speak with a social work receiving team member to help give you support for any of these needs? Yes - patient would like to speak to a Primary Care Recruiting Scheduler - Informed patient that a PrimaryCare Recruiting Scheduler will be in contact to discuss further. Routed to the ADULT PRIMARY CARE SOCIAL WORK pool [[id number]] and indicated in the FYI box. It can be normal to feel anxious or down during a time like this. Would you like to talk to a mental health professional about how you have been feeling? No Closing Thank you for taking the time to talk with me today. We want to work with you to ensure that we arekeeping your medical condition(s) well-controlled and to keep you healthy and out of the doctor's office or hospital. It s also not too late for me to sign you up for automated weekly questionnaires through [employer]. This is an easy way for us to stay connected each week. Are you interested? No, I understand. We can always sign you up in the future if you change your mind. Just as a reminder, will continue to call you every other week to check in on your health. Our calls should take 10-15 minutes or less. Remember, if you have concerns in between our calls, please call your PCP's office right away. Thank you. Enter next patient outreach date in the Track Pt Outreach and End outreach. documented in this encounterK[facility]03-10-2023 Instructions* Patient Instructions* Caren Kothari APRN.ROLL COATING MACHINE OPERATOR - 10/21/2022 7:17 PM EST ASSESSMENT/PLAN: 1. Sore throat - ICD9: 462, ICD10: J02.9 (primary diagnosis) - suspect viral - Alere Strep Test negative, no culture pending - Discussed supportive care treatment with fluids, rest and analgesia. 2. Viral URI - ICD9: 465.9, ICD10: J06.9 - Discussed viral etiology and rationale for treatment. - Symptomatic treatment with prn analgesia - Supportive care with fluids and rest - The patient may also use flonase nasal spray and cepacol lozenges/chloraseptic spray. - Follow-up with your PCP in 3-5 days if symptoms have not improved or sooner if symptoms worsen - Discussed red flags and need for immediate medical evaluation if any occur. - Discussed supportive care treatment with fluids, rest and analgesia. - Discussed expected course of illness Caren Kothari APRN.CNP Treatment for Viral Upper Respiratory Tract Infections Your body will kill off the virus by itself. Additionally, you can prime your body's immune system.This may help you get better more quickly. Drink lots of fluids Make sure you are eating well Get plenty of rest We do not have any medications that kill off these viruses. Antibiotics are used to treat bacterialinfections; however, they are not active against viral infections. There are some things that mighthelp you feel better, though. Vaporizers, humidifiers, hot showers, and hot fluids help open respiratory and sinus passages [place] Nasal [place] may offer relief of nasal and head congestion Lexx's Vapor Rub may relieve congestion Tylenol and Advil help control fevers and headaches Salt water gargles help relieve sore throats Chloraceptic spray or throat lozenges may also help relieve sore throat symptoms Occasionally, viral infections turn into something more serious. You should see your doctor or return to the Urgent Care if: You have fevers for longer than five days You have fevers above 102 degrees You are still sick after 10 days You have shortness of breath or wheezing After several days you are getting worse rather than better documented in this encounterK[facility]03-10-2023 History of Present illness Narrative* Caren Kothari APRN.VICKIE - 10/21/2022 7:06 PM EST Subjective Sore Throat Associated symptoms include ear pain. Pertinent negatives include no coughing, diarrhea or vomiting. Zoraida Barth is a 72 year old female who presents with sore throat today and 3 days of sinus pressure, ear pain. She was exposed to strep throat in her grandkids who were diagnosed with this today.She has "no idea" if she has had a fever but denies chills or body aches. She has had some nausea today. She had not taken any medication today. She rates her sore throat pain 4/10. Review of Systems Constitutional: Negative for chills, fever and malaise/fatigue. HENT: Positive for ear pain, sinus pain and sore throat. Respiratory: Negative for cough. Cardiovascular: Negative. Gastrointestinal: Positive for nausea. Negative for diarrhea and vomiting. Musculoskeletal: Negative for myalgias. Skin: Negative. BP 138/72 Pulse 66 Temp 36.7 C (98.1 F) Resp 20 Wt 96.3 kg (212 lb 3.2 oz) SpO2 94% BMI38.81 kg/m PAST MEDICAL HISTORY Diagnosis Date Asthma See PFT 12/2020 CKD (chronic kidney disease), stage III (HCC) Coronary artery disease s/p PTCA with ALEXIS to RCA 04/27 Depression Diabetes type II (HCC) Gallstones 10/02/2017 Horseshoe kidney 10/02/2017 Hyperlipidemia Hypertension Hypothyroidism Liver cyst 10/03/2017 Myocardial infarction (HCC) [address] Delgado Non-rheumatic mitral regurgitation 10/03/2017 Shingles Tobacco use disorder PAST SURGICAL HISTORY Procedure Laterality Date ARTHROSCOPY KNEE DIAGNOSTIC W/WO SYNOVIAL BX SPX Arthroscopy, knee right LAPAROSCOPY SURG CHOLECYSTECTOMY 10/18/2017 Cholecystectomy, lap LIG/TRNSXJ FLP TUBE ABDL/VAG APPR UNI/BI Tubal ligation PAST SURGICAL HISTORY OF 1994 kidney stone extraction: cut ureter STENT - CORONARY 2012 TONSILLECTOMY HX TOTAL ABDOMINAL HYSTERECT W/WO RMVL TUBE OVARY 1991 Hysterectomy, THANG, BSO URETERAL STENT 1994 2nd surgery ALLERGIES Metformin, Poison Rahel Extract, and Zsvoszd-Nab-Hct Reductase Inhibitors MEDICATIONS sertraline (ZOLOFT) 100 mg tablet Take 1 tablet by mouth once daily. levothyroxine (SYNTHROID) 150 mcg tablet Take 1 tablet by mouth once daily. Take on empty stomach. For thyroid lisinopril (ZESTRIL, PRINIVIL) 20 mg tablet Take 1 tablet by mouth twice daily. albuterol HFA (VENTOLIN HFA) 90 mcg/actuation inhaler Inhale 2 Puffs as instructed every 4 hours asneeded. amLODIPine (NORVASC) 10 mg tablet Take 1 tablet by mouth once daily. primidone (MYSOLINE) 50 mg tablet TAKE 2 TABLETS BY MOUTH EVERY DAY AT BEDTIME metoprolol succinate ER (TOPROL XL) 25 mg 24 hr tablet Take 0.5 tablets by mouth once daily. fluticasone (FLONASE) 50 mcg/actuation nasal spray Use 2 Sprays in each nostril once daily. Rinse mouth after use. blood sugar diagnostic (BLOOD GLUCOSE TEST) test strip Test blood sugar(s) 1 times daily. Dx: Type 2 DM - Uncontrolled E11.65 Insulin: No Lancets lancets Test blood sugar(s) 1 times daily. Dx: Type 2 DM - Uncontrolled E11.65 Insulin: No Blood-Glucose Meter monitoring kit Glucose Meter of Choice - Kit - Use once daily Dx: Type 2 DM - Uncontrolled E11.65 ibuprofen (MOTRIN) 200 mg tablet Take 3 tablets by mouth every 6 hours as needed for Pain (Take with food.). aspirin, enteric coated (ASPIRIN, ENTERIC COATED) 81 mg EC tablet Take 81 mg by mouth once daily. NITROGLYCERIN BUCCAL Place between cheek and gum. FAMILY HISTORY Problem Relation Age of Onset Heart Mother Diabetes Mother Hypertension Mother other (unknown) Father Hypertension Sister Thyroid Sister Asthma Sister Skin Cancer Other 1st cousin, unsure of type other (horseshoe kidney) Son Social History Tobacco Use Smoking status: Every Day Packs/day: 1.00 Years: 40.00 Pack years: 40.00 Types: Cigarettes Start date: 08/14/1969 Smokeless tobacco: Never Substance Use Topics Alcohol use: No Comment: Rarely Drug use: No Objective Physical Exam Vitals and nursing note reviewed. Constitutional: General: She is not in acute distress. Appearance: She is obese. She is not toxic-appearing. HENT: Right Ear: Tympanic membrane, ear canal and external ear normal. Left Ear: Tympanic membrane, ear canal and external ear normal. Nose: Nose normal. Mouth/Throat: Mouth: Mucous membranes are moist. Pharynx: Oropharynx is clear. Uvula midline. Posterior oropharyngeal erythema present. No oropharyngeal exudate. Cardiovascular: Rate and Rhythm: Normal rate and regular rhythm. Heart sounds: Normal heart sounds. Pulmonary: Effort: Pulmonary effort is normal. No respiratory distress. Breath sounds: Normal breath sounds. No wheezing or rales. Musculoskeletal: Cervical back: Neck supple. Lymphadenopathy: Cervical: No cervical adenopathy. Skin: General: Skin is warm and dry. Findings: No erythema or rash. Neurological: Mental Status: She is alert. ASSESSMENT/PLAN: 1. Sore throat - ICD9: 462, ICD10: J02.9 (primary diagnosis) - suspect viral - Alere Strep Test negative, no culture pending - Discussed supportive care treatment with fluids, rest and analgesia. 2. Viral URI - ICD9: 465.9, ICD10: J06.9 - Discussed viral etiology and rationale for treatment. - Symptomatic treatment with prn analgesia - Supportive care with fluids and rest - The patient may also use flonase nasal spray and cepacol lozenges/chloraseptic spray. - Follow-up with your PCP in 3-5 days if symptoms have not improved or sooner if symptoms worsen - Discussed red flags and need for immediate medical evaluation if any occur. - Discussed supportive care treatment with fluids, rest and analgesia. - Discussed expected course of illness Caren Kothari APRN.ROLL COATING MACHINE OPERATOR documented in this encounterK[facility] History of Present illness Narrative* Monika Ley RN - 10/03/2022 11:13 AM EST INSIGHT CDM TELEPHONIC OUTREACH Provider Action/FYI: Some back issues, thought she was getting shingles but it is better today Contact made with patient: Yes Patient identified by name and . Discussed care with patient It s nice talking to you again. As a reminder, this is our monthly check-in where I will be asking you questions about your health. This will only take a few minutes of your time. Is this a good time? Yes Symptoms What Chronic Disease(s) does the patient have: CKD Do you check your blood pressures at home? Yes, Enter readings: 122/63 Do you have new or worse shortness of breath with activity? No Do you feel like you are dehydrated for any reason, including not being able to eat or drink normally, or having less urine/much darker urine than normal for you? No Do you check your daily weight at home? Yes, Have you noticed a sudden gain in weight greater than three pounds in a day or three pounds in a week? No Are you having any other symptoms that your PCP needs to know about? No ALLEN Education Ordered -: No The patient required an escalation for symptom(s)? No Medications Do you have any questions about taking your medication or which medications you should be on? No Do you need any medication refills at this time, including any of the medications you might take only when needed? No Social We would like to make sure you have what you need so that your basic needs are met- including your personal safety, food, housing, transportation and medications? Would you like to speak with a social work receiving team member to help give you support for any of these needs? No It can be normal to feel anxious or down during a time like this. Would you like to talk to a mental health professional about how you have been feeling? No Closing Thank you for taking the time to talk with me today. We want to work with you to ensure that we arekeeping your medical condition(s) well-controlled and to keep you healthy and out of the doctor's office or hospital. It s also not too late for me to sign you up for automated weekly questionnaires through [employer]. This is an easy way for us to stay connected each week. Are you interested? No, I understand. We can always sign you up in the future if you change your mind. Just as a reminder, will continue to call you every other week to check in on your health. Our calls should take 10-15 minutes or less. Remember, if you have concerns in between our calls, please call your PCP's office right away. Thank you. Enter next patient outreach date in the Track Pt Outreach and End outreach. documented in this encounterK[facility]02-15-[facility] History of Present illness Narrative* Sherri Davalos MD - 09/28/2022 11:19 AM EST Chief Complaint Patient presents with: Depression: Follow up HPI Zoraida Barth is a 72 year old female who presents here today for Above Complaints. Increased her Zoloft to 100 mg daily at last OV 2 months ago with following HPI: Depression: Patient taking zoloft 50 mg daily which she states is not working well for her. Living with bipolar 12 year old grandchild and 4 other grandchildren which is a struggle for her. Feeling more depressed without SI/HI. Getting set up with counselor. Today, patient states that the higher dose of Zoloft is working well for her depression without side effects. Feeling less depressed and less agitated with stressors at home. Improved energy and interest as well and has been sweating to the oldies again for exercise. Would like to remain on currentregimen. Denies SI/HI. Contemplating smoking cessation, but is not ready to quit today. Past medical history, appointments, medications, allergies reviewed. 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 Delgado Non-rheumatic mitral regurgitation 10/03/2017 Shingles Tobacco use disorder Previous Surgical History PAST SURGICAL HISTORY Procedure Laterality Date ARTHROSCOPY KNEE DIAGNOSTIC W/WO SYNOVIAL BX SPX Arthroscopy, knee right LAPAROSCOPY SURG CHOLECYSTECTOMY 10/18/2017 Cholecystectomy, lap LIG/TRNSXJ FLP TUBE ABDL/VAG APPR UNI/BI Tubal ligation PAST SURGICAL HISTORY OF 1994 kidney stone extraction: cut ureter STENT - CORONARY 2012 TONSILLECTOMY HX TOTAL ABDOMINAL HYSTERECT W/WO RMVL TUBE OVARY 1991 Hysterectomy, THANG, BSO URETERAL STENT 1994 2nd surgery Family History FAMILY HISTORY Problem Relation Age of Onset Heart Mother Diabetes Mother Hypertension Mother other (unknown) Father Hypertension Sister Thyroid Sister Asthma Sister Skin Cancer Other 1st cousin, unsure of type other (horseshoe kidney) Son Patient Allergies ALLERGIES Allergen Reactions Metformin GI Upset Poison Rahel Extract Other: See Comments Severe rash Ydlvlks-Shf-Yge Red* Other: See Comments cholesterol medications cause liver pain Current Medications Current Outpatient Medications on File Prior to Visit Medication Sig lisinopril (ZESTRIL, PRINIVIL) 20 mg tablet Take 1 tablet by mouth twice daily. sertraline (ZOLOFT) 100 mg tablet Take 1 tablet by mouth once daily. albuterol HFA (VENTOLIN HFA) 90 mcg/actuation inhaler Inhale 2 Puffs as instructed every 4 hours asneeded. amLODIPine (NORVASC) 10 mg tablet Take 1 tablet by mouth once daily. primidone (MYSOLINE) 50 mg tablet TAKE 2 TABLETS BY MOUTH EVERY DAY AT BEDTIME levothyroxine (SYNTHROID) 150 mcg tablet Take 1 tablet by mouth once daily. Take on empty stomach. For thyroid metoprolol succinate ER (TOPROL XL) 25 mg 24 hr tablet Take 0.5 tablets by mouth once daily. fluticasone (FLONASE) 50 mcg/actuation nasal spray Use 2 Sprays in each nostril once daily. Rinse mouth after use. blood sugar diagnostic (BLOOD GLUCOSE TEST) test strip Test blood sugar(s) 1 times daily. Dx: Type 2 DM - Uncontrolled E11.65 Insulin: No Lancets lancets Test blood sugar(s) 1 times daily. Dx: Type 2 DM - Uncontrolled E11.65 Insulin: No Blood-Glucose Meter monitoring kit Glucose Meter of Choice - Kit - Use once daily Dx: Type 2 DM - Uncontrolled E11.65 ibuprofen (MOTRIN) 200 mg tablet Take 3 tablets by mouth every 6 hours as needed for Pain (Take with food.). aspirin, enteric coated (ASPIRIN, ENTERIC COATED) 81 mg EC tablet Take 81 mg by mouth once daily. NITROGLYCERIN BUCCAL Place between cheek and gum. No current facility-administered medications on file prior to visit. Social History Social History Tobacco Use Smoking status: Every Day Packs/day: 1.00 Years: 40.00 Pack years: 40.00 Types: Cigarettes Start date: 08/14/1969 Smokeless tobacco: Never Substance Use Topics Alcohol use: No Comment: Rarely Drug use: No Review of Symptoms REVIEW OF SYSTEMS See HPI EXAM: BP 125/74 Pulse (!) 59 Ht 157.5 cm (5' 2") Wt 93.4 kg (206 lb) BMI 37.68 kg/m General Appearance: Well appearing, alert, in no acute distress, well-hydrated, well nourished.. Lungs: Lungs clear to auscultation. No wheezing, rhonchi, rales.. Heart: RRR without murmur, gallop, or rubs. No ectopy. PSYCH: Posture and motor behavior: normal posture and motor behavior Dress, grooming, personal hygiene: normal dress and grooming Facial expression: smiling Speech: normal speech Mood: cheerful Coherency and relevance of thought: normal thought processes Memory: normal memory Health Maintenance List MAMMOGRAM due on 08/13/2021 DILATED RETINAL EXAM due on 01/12/2022 DIABETIC FOOT EXAM due on 03/17/2022 ADVANCE DIRECTIVE DISCUSSION due on 08/14/2022 DTAP,TDAP,TD(1 - Tdap) due on 07/27/2023 LUNG CANCER SCREENING due on 07/27/2023 COLORECTAL CANCER SCREENING due on 07/27/2023 SHINGRIX VACCINE(1 of 2) due on 07/27/2023 HBA1C due on 11/18/2022 LDL CHOLESTEROL due on 07/20/2023 SERUM CREATININE due on 07/20/2023 URINE ALBUMIN:CREATININE RATIO due on 07/25/2023 ANNUAL PCP TEAM CHRONIC DISEASE VISIT due on 07/27/2023 BP CONTROLLED (<130/80) due on 09/28/2023 BONE DENSITY Completed INFLUENZA Completed HEPATITIS C SCREENING Completed COVID-19 VACCINE Completed PNEUMOCOCCAL: 65+ Completed ASSESSMENT/PLAN: 1. Mild episode of recurrent major depressive disorder (HCC) - ICD9: 296.31, ICD10: F33.0 (primary diagnosis) Improved. Continue current dose of Zoloft. F/u in 6 months. - SERTRALINE 100 MG TABLET 2. Tobacco use disorder - ICD9: 305.1, ICD10: F17.200 - Cessation encouraged. - Physiologic and physical aspects of tobacco addiction as well as strategies for quitting were discussed. - Counseling was given focusing on the harmful effects of this addiction especially given the patient's medical condition(s) which will be worsened because of the chemicals in tobacco. Sherri Davalos MD documented in this encounterK[facility]01-25-2023 Miscellaneous Notes* Telephone Encounter - Bernice Bro LPN - 09/07/2022 9:22 AM EST Patient phones requesting refills as follows: Requested Prescriptions Pending Prescriptions Disp Refills lisinopril (ZESTRIL, PRINIVIL) 20 mg tablet 180 tablet 3 Sig: Take 1 tablet by mouth twice daily. CHERYL-07/27/22 Labs-07/25/22 NOV-09/28/22 med filled 09/06/21 Please review and advise. Bernice Bro LPN documented in this encounterK[facility]01-23-2023 History of Present illness Narrative* Monika Ley RN - 09/05/2022 10:58 AM EST INSIGHT CDM TELEPHONIC OUTREACH Provider Action/FYI: Doing well Contact made with patient: Yes Patient identified by name and . Discussed care with patient It s nice talking to you again. As a reminder, this is our monthly check-in where I will be asking you questions about your health. This will only take a few minutes of your time. Is this a good time? Yes Symptoms What Chronic Disease(s) does the patient have: CKD Do you check your blood pressures at home? Yes, Enter readings: WNL Do you have new or worse shortness of breath with activity? No Do you feel like you are dehydrated for any reason, including not being able to eat or drink normally, or having less urine/much darker urine than normal for you? No Do you check your daily weight at home? Yes, Have you noticed a sudden gain in weight greater than three pounds in a day or three pounds in a week? No Are you having any other symptoms that your PCP needs to know about? No ALLEN Education Ordered -: Yes The patient required an escalation for symptom(s)? No Medications Do you have any questions about taking your medication or which medications you should be on? No Do you need any medication refills at this time, including any of the medications you might take only when needed? No Social We would like to make sure you have what you need so that your basic needs are met- including your personal safety, food, housing and medications? Would you like to speak with a social work receiving team member to help give you support for any of these needs? No It can be normal to feel anxious or down during a time like this. Would you like to talk to a mental health professional about how you have been feeling? No Closing Thank you for taking the time to talk with me today. We want to work with you to ensure that we arekeeping your medical condition(s) well-controlled and to keep you healthy and out of the doctor's office or hospital. It s also not too late for me to sign you up for automated weekly questionnaires through [employer]. This is an easy way for us to stay connected each week. Are you interested? No, I understand. We can always sign you up in the future if you change your mind. Just as a reminder, will continue to call you every other week to check in on your health. Our calls should take 10-15 minutes or less. Remember, if you have concerns in between our calls, please call your PCP's office right away. Thank you. Enter next patient outreach date in the Track Pt Outreach and End outreach. documented in this encounterK[facility]12-28-2022 History of Present illness Narrative* Monika Ley RN - 08/10/2022 10:36 AM EST INSIGHT CDM TELEPHONIC OUTREACH Provider Action/FYI: 2nd attempt Feeling sick Sinus and ear pressure Nausea Have not checked her temp Able to keep fluids down Family members have been sick as well Advised if not improved or worsens to seek medical care Contact made with patient: Yes Patient identified by name and . Discussed care with patient It s nice talking to you again. As a reminder, this is our monthly check-in where I will be asking you questions about your health. This will only take a few minutes of your time. Is this a good time? Yes Symptoms What Chronic Disease(s) does the patient have: CKD Do you check your blood pressures at home? No Do you have new or worse shortness of breath with activity? No Do you feel like you are dehydrated for any reason, including not being able to eat or drink normally, or having less urine/much darker urine than normal for you? No Do you check your daily weight at home? No Are you having any other symptoms that your PCP needs to know about? No Symptom Escalation ALLEN Education Ordered -: No The patient required an escalation for symptom(s)? No Medications Do you have any questions about taking your medication or which medications you should be on? No Do you need any medication refills at this time, including any of the medications you might take only when needed? No Social We would like to make sure you have what you need so that your basic needs are met- including your personal safety, food, housing and medications? Would you like to speak with a social work receiving team member to help give you support for any of these needs? No It can be normal to feel anxious or down during a time like this. Would you like to talk to a mental health professional about how you have been feeling? No Closing Thank you for taking the time to talk with me today. We want to work with you to ensure that we arekeeping your medical condition(s) well-controlled and to keep you healthy and out of the doctor's office or hospital. It s also not too late for me to sign you up for automated weekly questionnaires through [employer]. This is an easy way for us to stay connected each week. Are you interested? No, I understand. We can always sign you up in the future if you change your mind. Just as a reminder, will continue to call you every other week to check in on your health. Our calls should take 10-15 minutes or less. Remember, if you have concerns in between our calls, please call your PCP's office right away. Thank you. Enter next patient outreach date in the Track Pt Outreach and End outreach. documented in this encounterKet[facility]12-27-2022 History of Present illness Narrative* Monika Ley RN - 08/09/2022 12:53 PM EST INSIGHT [facility] TELEPHONIC OUTREACH Provider Action/FYI: voicemail Contact made with patient: No - Left message Hello my name is Monika Ley RN your Surface Water Technician [facility] the [facility] I am calling today for your monthly check in. I am sorry I missed your call. I will reach out to you again tomorrow.Enter next patient outreach date in the Track Pt Outreach. End outreach. documented in this encounterK[facility]12-14-2022 History of Present illness Narrative* Sherri Davalos MD - 07/27/2022 1:16 PM EST Chief Complaint Patient presents with: Physical HPI Zoraida Barth is a 72 year old female who presents here today for Above Complaints. Patient notes that she has sinus symptoms for about 2 weeks. Exposed to influenza A at home with grandkids. Symptoms gradually improving, but still has mild cough, nasal congestion and drainage. Treating with benadryl, vicks vaporub, and ibuprofen. Denies fever/chills, sinus pain/pressure,wheezing,SOB. CAD: managed by [facility] Cardiology. No changes to regimen at last OV on 05/25. Intolerant to statins. Had been on PCSK9 inhibitor, but insurance will no longer cover and refused other medications. Deniesangina, SOB, palpitations, LE edema. F/u in 1 year. DIABETES MELLITUS: Ms. Barth was last seen 6 months ago. Since our last visit she denies excessive thirst or increased frequency of urination, numbness, tingling or pain in extremities, new or unusual visual symptoms, and low sugar/hypoglycemic reactions. Follows a diabetic diet most of the time. Has not been on metformin since March due to diarrhea. She reports checking her glucose on a once a day schedule with sugars in the fasting <120 range. Patient's last HgA1C was Hemoglobin A1C (%) Date Value 05/20/2022 6.2 09/14/2021 6.3 03/12/2021 6.6 ) Last Ophthalmology exam was within the past 6 months-March at the [facility]. Reportedly negative for DM retinopathy, but is getting cataracts. Last Podiatry exam was more than 12 months ago BP well controlled on current regimen. Depression: Patient taking zoloft 50 mg daily which she states is not working well for her. Living with bipolar 12 year old grandchild and 4 other grandchildren which is a struggle for her. Feeling more depressed without SI/HI. Getting set up with counselor. Hypothyroidism: TSH checked in September and was in good range. Taking synthroid daily as prescribed. Asthma: Doing well without need for albuterol inhaler for months or more than a year. Not sure where her inhaler is at home and would like refill. Tobacco use: Smoking about 1 pack per day. Not ready to quit smoking due to recent stressors. States that had FOBT test through [facility] last week. We should be getting results back. Patient has living will and DPOA paperwork at home, but lost it. Would like new forms today. FULL CODE. Past medical history, appointments, medications, allergies reviewed. 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 Delgado Non-rheumatic mitral regurgitation 10/03/2017 Shingles Tobacco use disorder Previous Surgical History PAST SURGICAL HISTORY Procedure Laterality Date ARTHROSCOPY KNEE DIAGNOSTIC W/WO SYNOVIAL BX SPX Arthroscopy, knee right LAPAROSCOPY SURG CHOLECYSTECTOMY 10/18/2017 Cholecystectomy, lap LIG/TRNSXJ FLP TUBE ABDL/VAG APPR UNI/BI Tubal ligation PAST SURGICAL HISTORY OF 1994 kidney stone extraction: cut ureter STENT - CORONARY 2012 TONSILLECTOMY HX TOTAL ABDOMINAL HYSTERECT W/WO RMVL TUBE OVARY 1991 Hysterectomy, THANG, BSO URETERAL STENT 1994 2nd surgery Family History FAMILY HISTORY Problem Relation Age of Onset Heart Mother Diabetes Mother Hypertension Mother Hypertension Sister Thyroid Sister Asthma Sister other (unknown) Father Skin Cancer Other 1st cousin, unsure of type Patient Allergies ALLERGIES Allergen Reactions Poison Rahel Extract Other: See Comments Severe rash Mwdukpv-Fqh-Aww Red* Other: See Comments cholesterol medications cause liver pain Current Medications Current Outpatient Medications on File Prior to Visit Medication Sig sertraline (ZOLOFT) 50 mg tablet Take 1 tablet by mouth once daily. amLODIPine (NORVASC) 10 mg tablet Take 1 tablet by mouth once daily. primidone (MYSOLINE) 50 mg tablet TAKE 2 TABLETS BY MOUTH EVERY DAY AT BEDTIME levothyroxine (SYNTHROID) 150 mcg tablet Take 1 tablet by mouth once daily. Take on empty stomach. For thyroid metoprolol succinate ER (TOPROL XL) 25 mg 24 hr tablet Take 0.5 tablets by mouth once daily. fluticasone (FLONASE) 50 mcg/actuation nasal spray Use 2 Sprays in each nostril once daily. Rinse mouth after use. lisinopril (ZESTRIL, PRINIVIL) 20 mg tablet Take 1 tablet by mouth twice daily. blood sugar diagnostic (BLOOD GLUCOSE TEST) test strip Test blood sugar(s) 1 times daily. Dx: Type 2 DM - Uncontrolled E11.65 Insulin: No Lancets lancets Test blood sugar(s) 1 times daily. Dx: Type 2 DM - Uncontrolled E11.65 Insulin: No Blood-Glucose Meter monitoring kit Glucose Meter of Choice - Kit - Use once daily Dx: Type 2 DM - Uncontrolled E11.65 albuterol HFA (VENTOLIN HFA) 90 mcg/actuation inhaler Inhale 2 Puffs as instructed every 4 hours asneeded. ibuprofen (MOTRIN) 200 mg tablet Take 3 tablets by mouth every 6 hours as needed for Pain (Take with food.). aspirin, enteric coated (ASPIRIN, ENTERIC COATED) 81 mg EC tablet Take 81 mg by mouth once daily. NITROGLYCERIN BUCCAL Place between cheek and gum. metFORMIN ER (GLUCOPHAGE XR) 500 mg 24 hr tablet Take 2 tablets by mouth twice daily. No current facility-administered medications on file prior to visit. Social History Social History Tobacco Use Smoking status: Every Day Packs/day: 0.50 Years: 40.00 Pack years: 20.00 Types: Cigarettes Start date: 08/14/1969 Smokeless tobacco: Never Substance Use Topics Alcohol use: No Comment: Rarely Drug use: No Review of Symptoms REVIEW OF SYSTEMS GENERAL: No weight loss, malaise or fevers HEENT: SEE HPI NECK: Negative for lumps, goiter, pain and significant neck swelling RESPIRATORY: Negative for cough, hemoptysis, wheezing, COPD, dyspnea or shortness of breath CARDIOVASCULAR: Negative for chest pain, leg swelling, hypertension, CHF or palpitations GI: No nausea, vomiting, or diarrhea : No history of dysuria, frequency or incontinence GOLD NIB GRINDER: Negative for abnormal vaginal bleeding, abnormal vaginal discharge MUSCULOSKELETAL: Negative for joint pain or swelling, back pain or muscle pain SKIN: Negative for lesions, rash, and itching EXAM: BP 130/62 Pulse 62 Temp 36.3 C (97.3 F) (Right Tympanic) Resp 18 Ht 157.5 cm (5' 2") Wt 91.5 kg (201 lb 12.8 oz) SpO2 96% BMI 36.91 kg/m General Appearance: Well appearing, alert, in no acute distress, well-hydrated, well nourished.. Skin: Skin color, texture, turgor normal, no suspicious rashes or lesions. Head: Normocephalic, no masses, lesions, tenderness or abnormalities. Eyes: Anicteric sclera. Pupils are equally round and reactive to light. Extraocular movements are intact. . Ears: External ears normal, canals clear. Nose/Sinuses: Nares normal, septum midline, mucosa normal, no drainage or sinus tenderness. Oropharynx: Lips, mucosa, and tongue normal, teeth and gums normal, oropharynx normal. Neck: Supple, no adenopathy; thyroid symmetric, normal size, no bruits. Lungs: Lungs clear to auscultation. No wheezing, rhonchi, rales.. Heart: RRR without murmur, gallop, or rubs. No ectopy. Abdomen: Normal abdominal exam, Abdomen soft, non-tender. Bowel sounds normal. No masses, organomegaly. Extremities: No deformities, edema, skin discoloration, clubbing or cyanosis. Good capillary refill. . Health Maintenance List BP CONTROLLED (<130/80) Never done DTAP,TDAP,TD(1 - Tdap) Never done LUNG CANCER SCREENING Never done SHINGRIX VACCINE(1 of 2) Never done COLORECTAL CANCER SCREENING due on 02/16/2020 MAMMOGRAM due on 08/13/2021 ADVANCE DIRECTIVE DISCUSSION Never done COVID-19 VACCINE(3 - Booster for Mary series) due on 09/23/2021 DILATED RETINAL EXAM due on 01/12/2022 DIABETIC FOOT EXAM due on 03/17/2022 HBA1C due on 11/18/2022 ANNUAL PCP TEAM CHRONIC DISEASE VISIT due on 03/29/2023 LDL CHOLESTEROL due on 07/20/2023 SERUM CREATININE due on 07/20/2023 URINE ALBUMIN:CREATININE RATIO due on 07/25/2023 BONE DENSITY Completed INFLUENZA Completed HEPATITIS C SCREENING Completed PNEUMOCOCCAL: 65+ Completed Data reviewed Component Latest Ref Rng & Units 09/14/2021 05/20/2022 07/20/2022 07/25/2022 Protein, Total 6.3 - 8.0 g/dL 7.4 Albumin 3.9 - 4.9 g/dL 4.3 Calcium 8.5 - 10.2 mg/dL 9.6 Bilirubin, Total 0.2 - 1.3 mg/dL <0.2 (L) Alkaline Phosphatase 34 - 123 U/L 93 AST 13 - 35 U/L 15 ALT 7 - 38 U/L <5 (L) Glucose 74 - 99 mg/dL 108 (H) BUN 7 - 21 mg/dL 10 Creatinine 0.58 - 0.96 mg/dL 0.93 Sodium 136 - 144 mmol/L 142 Potassium 3.7 - 5.1 mmol/L 4.5 Chloride 97 - 105 mmol/L 106 (H) CO2 22 - 30 mmol/L 24 Anion Gap 9 - 18 mmol/L 12 eGFR >=60 mL/min/1.73m 66 WBC 3.70 - 11.00 k/uL 11.08 (H) RBC 3.90 - 5.20 m/uL 4.29 Hemoglobin 11.5 - 15.5 g/dL 13.7 Hematocrit 36.0 - 46.0 % 43.0 MCV 80.0 - 100.0 fL 100.2 (H) MCH 26.0 - 34.0 pg 31.9 MCHC 30.5 - 36.0 g/dL 31.9 RDW-CV 11.5 - 15.0 % 14.0 Platelet Count 150 - 400 k/uL 303 MPV 9.0 - 12.7 fL 11.6 Absolute nRBC <0.01 k/uL <0.01 Total Cholesterol, Nonfasting <200 mg/dL 246 (H) Triglycerides, Nonfasting <150 mg/dL 99 HDL Cholesterol, Nonfasting >39 mg/dL 34 (L) LDL Cholesterol, Nonfasting <100 mg/dL 192 (H) Non HDL Cholesterol, Nonfasting <130 mg/dL 212 (H) VLDL Cholesterol, Nonfasting <30 mg/dL 20 Total Chol/HDL Ratio, Nonfasting <5.10 mg/dL 7.24 (H) LDL/HDL Ratio, Nonfasting <2.54 mg/dL 5.65 (H) Creatinine, Ur Random (UCRR) 20.0 - 300.0 mg/dL 76.5 Albumin, Urine Random mg/L 146.4 Albumin/Creat Ratio <30 mg/g 191 (H) Hemoglobin A1C 4.3 - 5.6 % 6.3 (H) 6.2 (H) Estimated Average Glucose mg/dL 134 131 TSH 0.270 - 4.200 uU/mL 0.814 ASSESSMENT/PLAN: 1. Annual physical exam - ICD9: V70.0, ICD10: Z00.00 (primary diagnosis) - Counseled on healthy diet and regular exercise - Calcium intake with supplements or by diet of 1000 mg/day for under 50, 1200- 1500 mg/day for 50+ - Lung cancer screening recommended - Smoking cessation encouraged; discussed risks to health and quitting strategies. Patient is not ready to quit - Follow up for annual exam in one year 2. Viral URI with cough - ICD9: 465.9, ICD10: J06.9 - Discussed viral etiology and rationale for treatment. - Symptomatic treatment with prn analgesia - Supportive care with fluids and rest - The patient may also use OTC cough and cold meds as needed and nasal saline gtts and suction prn. 3. Diabetes type II (HCC) - ICD9: 250.00, ICD10: E11.9 Controlled. - Blood glucose monitoring on a once a day schedule - Encouraged regular aerobic exercise and weight loss - Follow up in 6 months, sooner should any other issues arise. - Discussed diabetic education issues of alf diabetic complications, hypoglycemic symptoms, hyperglycemic symptoms, diet, importance of exercise, and importance of annual examinations with Opthalmology with patient. 4. Essential hypertension - ICD9: 401.9, ICD10: I10 - good control - Continue current medication(s) - Encouraged dietary sodium restriction/DASH diet - Recommended regular aerobic exercise. - Reviewed risks of HTN and principles of treatment - Goal of BP <130/80 5. Stage 3a chronic kidney disease (HCC) - ICD9: 585.3, ICD10: N18.31 - eGFR: Improved. - Counseled on avoiding regular use of NSAIDs, adequate hydration, potential risk of IV dye - Recommend maintaining blood pressure under 130/80 - Counseled on renal diet (low sodium/low potassium/low phosphorus) 6. Horseshoe kidney - ICD9: 753.3, ICD10: Q63.1 Will monitor renal function. Normal on last check. 7. Mild episode of recurrent major depressive disorder (HCC) - ICD9: 296.31, ICD10: F33.0 Uncontrolled. Increase zoloft. F/u in 2 months or PRN. Contracted for safety. - SERTRALINE 100 MG TABLET 8. Acquired hypothyroidism - ICD9: 244.9, ICD10: E03.9 - Instructed patient on importance of taking on an empty stomach either first thing in the morning or at bedtime. - continue current dose of Synthroid 0.150 mg 9. Coronary artery disease involving [place] coronary artery of [place] heart without angina pectoris- ICD9: 414.01, ICD10: I25.10 Asymtpomatic on medical management. F/u with cardiology. 10. Tobacco use disorder - ICD9: 305.1, ICD10: F17.200 - Cessation encouraged. - Physiologic and physical aspects of tobacco addiction as well as strategies for quitting were discussed. - Counseling was given focusing on the harmful effects of this addiction especially given the patient's medical condition(s) which will be worsened because of the chemicals in tobacco. - CONSULT LUNG CANCER SCREENING CLINIC 11. Need for COVID-19 vaccine - ICD9: V04.89, ICD10: Z23 - PFIZER-BIONTECH COVID-19 BIVALENT BOOSTER VACCINE, AGE 12+ YR 12. Advance directive discussed with patient - ICD9: V65.49, ICD10: Z71.89 - ADVANCE CARE PLAN DISCUSSION Sherri Davalos MD [facility] Miscellaneous Notes* Telephone Encounter - Alyce Koenig Ma - 07/12/2022 9:59 AM EST Pt notified. Advised to be fasting and to be able to provide a urine. Alyce Koenig Ma * Telephone Encounter - Sherri Davalos MD - 07/12/2022 8:08 AM EST Additional orders placed. To be completed with CMP. * Telephone Encounter - Margarita Geiger RN - 07/11/2022 5:47 PM EST Spoke with patient. Given message from provider's office. Patient verbalizes understanding. Patienthas physical scheduled on 07/27 with PCP. Any other labs needed? If so, please file and let her know. Margarita Geiger RN * Telephone Encounter - Alix Jackson LPN - 07/11/2022 4:09 PM EST TC to patient, message left to call office back for update. Alix Jackson LPN * Telephone Encounter - Zeynep Schmidt APRN.VICKIE - 07/11/2022 2:36 PM EST Refills completed. I have placed order for CMP to check kidney function. Please assist in scheduling follow-up appointment. Zeynep Schmidt APRN.CNP documented in this encounterK[facility] Evaluation note* Diagnosis Stage 3a chronic kidney disease (HCC)- Primary Diabetes type II (HCC) documented in [facility] encounter [facility] History of Present illness Narrative* Carmen Lawler Population Health Navigator - 07/11/2022 2:54 PM EST POPULATION HEALTH NAVIGATION OUTREACH Action/ 1st attempt- lvm/sent [facility] to schedule follow up with pcp. Postponed message x2 days- will try again Pt identified by name and : NO Outreach Outcome/Action Unable to reach patient: Left message Africasanahart message sent Did you use a PCP flex slot to schedule this appointment? N/A Reason for Outreach [facility] Payer: Payor: [employer] / Plan: [employer] HMO / Product Type: HMO / Care Gap Reviewed:: Follow-up appointment Reminder: Reminder note to check Health Maintenance for items below Health Maintenance items due: BP CONTROLLED (<130/80) Never done DTAP,TDAP,TD(1 - Tdap) Never done LUNG CANCER SCREENING Never done SHINGRIX VACCINE(1 of 2) Never done COLORECTAL CANCER SCREENING due on 02/16/2020 MAMMOGRAM due on 08/13/2021 ADVANCE DIRECTIVE DISCUSSION Never done COVID-19 VACCINE(3 - Booster for Mary series) due on 09/23/2021 LDL CHOLESTEROL due on 12/03/2021 DILATED RETINAL EXAM due on 01/12/2022 URINE ALBUMIN:CREATININE RATIO due on 03/12/2022 DIABETIC FOOT EXAM due on 03/17/2022 HEMOGLOBIN/HEMATOCRIT due on 03/17/2022 Message Sent to Practice: No Navigation Signature: Carmen Lawler Population Health Navigator July 11, 2022 2:54 PM * Zeynep Schmidt APRN.CNP - 07/11/2022 2:34 PM EST Refills completed. Patient is due for follow-up. I have placed order to check kidney function. Please assist in scheduling appointment. Zeynep Schmidt APRN.VICKIE * Monika Ley RN - 07/11/2022 2:11 PM EST [facility] CDM TELEPHONIC OUTREACH Provider Action/FYI: Refill request for amlodipine and sertraline Rx loaded Patient needs to schedule follow up Does pcp want labs done? Contact made with patient: Yes Patient identified by name and . Discussed care with patient It s nice talking to you again. As a reminder, this is our bi-weekly check-in where I will be asking you questions about your health. This will only take a few minutes of your time. Is this a good time? Yes Symptoms What Chronic Disease(s) does the patient have: CKD Do you check your blood pressures at home? Yes, Enter readings: 120-130 systolic Do you have new or worse shortness of breath with activity? No Do you feel like you are dehydrated for any reason, including not being able to eat or drink normally, or having less urine/much darker urine than normal for you? No Do you check your daily weight at home? Yes, Have you noticed a sudden gain in weight greater than three pounds in a day or three pounds in a week? No Are you having any other symptoms that your PCP needs to know about? No Symptom Escalation The patient required an escalation for symptom(s)? No Medications Do you have any questions about taking your medication or which medications you should be on? No Do you need any medication refills at this time, including any of the medications you might take only when needed? Yes Social We would like to make sure you have what you need so that your basic needs are met- including your personal safety, food, housing and medications? Would you like to speak with a social work receiving team member to help give you support for any of these needs? No It can be normal to feel anxious or down during a time like this. Would you like to talk to a mental health professional about how you have been feeling? No Closing Thank you for taking the time to talk with me today. We want to work with you to ensure that we arekeeping your medical condition(s) well-controlled and to keep you healthy and out of the doctor's office or hospital. It s also not too late for me to sign you up for automated weekly questionnaires through [employer]. This is an easy way for us to stay connected each week. Are you interested? No, I understand. We can always sign you up in the future if you change your mind. Just as a reminder, will continue to call you every other week to check in on your health. Our calls should take 10-15 minutes or less. Remember, if you have concerns in between our calls, please call your PCP's office right away. Thank you. Enter next patient outreach date for two weeks on the same day of the week as today in the Track PtOutreach and End outreach. documented in this encounter[facility] Evaluation note* Diagnosis Stage 3a chronic kidney disease (HCC)- Primary Mild episode of recurrent major depressive disorder (HCC) Essential hypertension Unspecified essential hypertension [facility] encounter [facility] History of Present illness Narrative* Monika Ley RN - 06/14/2022 2:39 PM EDT INSIGHT CDM TELEPHONIC OUTREACH Provider Action/FYI: Doing well, happy with her last A1C results Contact made with patient: Yes Patient identified by name and . Discussed care with patient It s nice talking to you again. As a reminder, this is our bi-weekly check-in where I will be asking you questions about your health. This will only take a few minutes of your time. Is this a good time? Yes Symptoms What Chronic Disease(s) does the patient have: CKD Do you check your blood pressures at home? Yes, Enter readings: good-less then 130's systolic Do you have new or worse shortness of breath with activity? No Do you feel like you are dehydrated for any reason, including not being able to eat or drink normally, or having less urine/much darker urine than normal for you? No Do you check your daily weight at home? Yes, Have you noticed a sudden gain in weight greater than three pounds in a day or three pounds in a week? No Are you having any other symptoms that your PCP needs to know about? No Symptom Escalation The patient required an escalation for symptom(s)? No Medications Do you have any questions about taking your medication or which medications you should be on? No Do you need any medication refills at this time, including any of the medications you might take only when needed? No Social We would like to make sure you have what you need so that your basic needs are met- including your personal safety, food, housing and medications? Would you like to speak with a social work receiving team member to help give you support for any of these needs? No It can be normal to feel anxious or down during a time like this. Would you like to talk to a mental health professional about how you have been feeling? No Closing Thank you for taking the time to talk with me today. We want to work with you to ensure that we arekeeping your medical condition(s) well-controlled and to keep you healthy and out of the doctor's office or hospital. It s also not too late for me to sign you up for automated weekly questionnaires through [employer]. This is an easy way for us to stay connected each week. Are you interested? No, I understand. We can always sign you up in the future if you change your mind. Just as a reminder, will continue to call you every other week to check in on your health. Our calls should take 10-15 minutes or less. Remember, if you have concerns in between our calls, please call your PCP's office right away. Thank you. Enter next patient outreach date for two weeks on the same day of the week as today in the Track PtOutreach and End outreach. documented in this encounterK[facility]10-17-2022 Miscellaneous Notes* Telephone Encounter - Paola Gregory - 05/30/2022 9:13 AM EDT Pharmacy requesting refills as follows via ERAR: CHERYL: 12/24/21 No Show: 04/29/22 NOV: not scheduled Requested Prescriptions Pending Prescriptions Disp Refills primidone (MYSOLINE) 50 mg tablet [Pharmacy Med Name: PRIMIDONE 50 MG TABLET] 180 tablet 1 Sig: TAKE 2 TABLETS BY MOUTH EVERY DAY AT BEDTIME Please review and advise. Paola Gregory documented in this [facility]10-10-2022 Miscellaneous Notes* Telephone Encounter - Alyce Koenig Ma - 05/23/2022 2:07 PM EDT Pt notified of results via [facility]. Alyce Koenig Ma * Telephone Encounter - Alyce Koenig Ma - 05/23/2022 2:06 PM EDT ----- Message from Sherri Davalos MD sent at 05/21/2022 8:00 AM EDT ----- Diabetes well controlled with A1C of 6.2. no change to regimen. documented in this encounterK[facility]10-06-2022 Miscellaneous Notes* Telephone Encounter - Alyce Koenig Ma - 05/19/2022 12:34 PM EDT Norvasc refilled on 02/17/22 #90 with [facility]. Notified via [employer]. Alyce Koenig Ma documented in this encounterK[facility]09-15-2022 History of Present illness Narrative* Monika Ley RN - 04/28/2022 3:42 PM EDT In addition to what I have discussed, I am providing you with a phone number that gives you one call access to nursing, appointments, and other valuable resources. I am also sending this information to your Africasanahart. Please take the time to write this number down . This number is available 7 days a week from 8am-8pm. * Monika Ley RN - 04/28/2022 3:13 PM EDT [facility] CDM Enrollment Provider Action/FYI: Ckd, qualifies for healthy at home Patient referred by: [facility] Contact made with patient: Yes - Patient identified by name and . Discussed care with patient Jacinda this is Monika Ley RN and I am calling from Sherri Davalos MD office at the [facility]. I am a RN Surface Water Technician with our [facility] Chronic Disease Management program. Sherri Davalos MD wanted me to reach out to help you manage your health at home. Our goal is to keep you well at home. We want to help you manage your chronic disease by providing a safety net of resources around you, getting you the care you need in a timely manner, and hopefully keep you out of the ED and hospital. I will send you a few questions once a week through your [employer]See account. It will automatically show up for you to complete. There are simple questions that will help us identify if you have any concerns or symptoms and I will call you to help get what you need. We will be able to connect you, review your symptoms, do an on demand visit, or communicate with Sherri Davalos MD if needed. I am going to sign you up for the program now. Enrollment Questions: Let's get you enrolled in the program. Yes, Do you have regular access to a computer/smartphone? No, Are you offering patient a biweekly phone call? yes/no: Yes. Goal Setting: I would like to take some time today to discuss your personal health goals. Patient does not have a goal. We will review during our next conversations to help support you. Most people know what to do to become healthier, yet struggle to put it into action on their own.Itcan be hard to maintain a healthy lifestyle, especially when life is so stressful. Can we connect you with a [facility] to find a program that could help you meet your goals? No Closing: Patient accepts telephonic outreach Thank you for your time today. I am excited to work together inmanaging your health! I will check back within in two weeks to see how things are going. If questions or concerns arise between phone calls, please reach out to your PCP s office. (Place in active status for [facility] and place name in care team and update next patient outreach data to next business d ay two weeks from today s date) documented in this encounterK[facility]08-15-2022 Miscellaneous Notes* Telephone Encounter - Jennifer Bryant LPN - 03/28/2022 4:59 PM EDT PATIENT NOTIFIED OF SAME. Appt scheduled 03/29/2022 * Telephone Encounter - Dalia Alvarado RN - 03/28/2022 4:53 PM EDT Called and left a detailed voicemail notifying patient of providers message. Hospital phone number was left so Pt could call back and schedule an appointment. Dalia Alvarado RN * Telephone Encounter - Sherri Davalos MD - 03/28/2022 1:25 PM EDT She is on the extended release metoprolol already. If she is having new diarrhea complaint, would recommend OV to discuss. * Telephone Encounter - Beverly Ellison Ma - 03/28/2022 12:16 PM EDT Advise on pt message below. Beverly Ellison Ma * Telephone Encounter - Erum Lopez - 03/28/2022 12:02 PM EDT Patient calling today and asking to have her metoprolol changed to extended release. She said the other kind is giving her diarrhea. Patient asking for metoprolol succinate ER (TOPROL XL) 25 mg 24 hr tablet documented in this encounterK[facility]07-13-2022 History of Present illness Narrative* Carla Miles MA - 02/23/2022 12:56 PM EDT POPULATION HEALTH NAVIGATION OUTREACH Action/FYI Due for: Mammogram FOBT Dilated Retinal Exam Patient declined any scheduling (10/15/21) Pt identified by name and : NO SHINGRIX VACCINE(1 of 2) Never done COLORECTAL CANCER SCREENING due on 02/16/2020 MAMMOGRAM due on 08/13/2021 ADVANCE DIRECTIVE DISCUSSION Never done COVID-19 VACCINE(3 - Booster for Mary series) due on 11/27/2021 LDL CHOLESTEROL due on 12/03/2021 DILATED RETINAL EXAM due on 01/12/2022 URINE ALBUMIN:CREATININE RATIO due on 03/12/2022 DIABETIC FOOT EXAM due on 03/17/2022 Carla Miles MA February 23, 2022 12:57 PM documented in this encounterK[facility]07-07-2022 Miscellaneous Notes* Telephone Encounter - Mariella Cardona LPN - 02/17/2022 12:20 PM EDT Patient has been identified by name and date of : Yes Patient phones for refill(s): Pending Prescriptions Disp Refills AMLODIPINE 10 MG TABLET 90 tablet 1 Sig: Take 1 tablet by mouth once daily. DEBBIE: No Date of last office visit in primary care: 10/19/21 Please advise. Thank you. Mariella Cardona LPN documented in this encounterK[facility]06-17-2022 Miscellaneous Notes* Telephone Encounter - Annalise Wang - 01/28/2022 10:43 AM EDTSummary: Refill Patient has been identified by name and date of : Yes Last office visit in this department: 10/19/2021 RX INSTRUCTIONS: Patient aware RX will be sent to pharmacy. No need to notify patient. Patient phones requesting refills as follows: Pending Prescriptions Disp Refills SERTRALINE 50 MG TABLET 90 tablet 1 Sig: Take 1 tablet by mouth once daily. DEBBIE: No Please review and advise. Annalise Wang documented in this encounterK[facility]05-13-2022 Instructions* Patient Instructions* Dean Dubois MD - 12/24/2021 9:24 AM EDT Lets start a medication for tremor called primidone. Watch out for sleepiness as the main side effect. I gave you a 50 mg pill - start by taking a half pill at bedtime for 1 week, then increase to a full pill at bedtime for a week, then 1.5 pills at bedtime for a week, then 2 pills at bedtime thereafter. If even a half is too much, you can try starting with a quarter pill first then increasing to half and full every week. There is a large range of doses we can increase to in the future if needed. If any dose increase seems to be too much, go back down on the dose to what is tolerated, stay there for a couple weeks longer, and you can try increasing again. [facility] History of Present illness Narrative* Dean Dubois MD - 12/24/2021 8:58 AM EDT NEW PATIENT EVALUATION Subjective HPI Zoraida Barth is a 71 year old right-handed (somewhat ambidextrous) female who presents for evaluation of tremor. Dr. Sherri Davalos MD is the PCP and referring physician. She started having tremor around 3 years ago while she was working. At the time it was worrying herboss. Tremor is more in the right but can be both hands. Tremor will come out when trying to use the computer or write. If she isn't doing these activities might not notice tremor much. Severity varies. Sometimes the tremor comes out while eating other times, not sure what makes it come out. Tremor came out when she was using hot glue and slightly burned herself. Can't predict when the tremor will comeout. 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 Some days has minimal tremor other days it is severe. Occasionally when she gets up to walk seems to be stuck, can't get started. Sense of smell is fine. Can have diarrhea, no constipation. Not aware of dream enactment behavior though sleeps alone. Up and down at night due to back pain. No known family history of tremor. Not aware of alcohol response but minimal intake. Drinks a can of coke a day, no coffee. 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 Lots of tension in the right arm from doing this, wouldget a massage monthly to help relax, has been a couple years since retiring and arm finally loosening up. History of depression and anxiety. The depression was pretty bad though has been better with sertraline. Lots of stress - her son, SANTANA, and her 5 children have moved in with her, one of whom is diagnosed as a sociopath. Medications: Current Outpatient Medications Medication Sig Dispense Refill metFORMIN ER (GLUCOPHAGE XR) 500 mg 24 hr tablet Take 2 tablets by mouth twice daily. 120 tablet 5 metoprolol succinate ER (TOPROL XL) 25 mg 24 hr tablet Take 0.5 tablets by mouth once daily. 45 tablet 1 amLODIPine (NORVASC) 10 mg tablet Take 1 tablet by mouth once daily. 90 tablet 1 levothyroxine (SYNTHROID) 150 mcg tablet Take 1 tablet by mouth once daily. Take on empty stomach. For thyroid 30 tablet 5 fluticasone (FLONASE) 50 mcg/actuation nasal spray Use 2 Sprays in each nostril once daily. Rinse mouth after use. 1 Each 1 lisinopril (ZESTRIL, PRINIVIL) 20 mg tablet Take 1 tablet by mouth twice daily. 180 tablet 3 sertraline (ZOLOFT) 50 mg tablet Take 1 tablet by mouth once daily. 90 tablet 1 blood sugar diagnostic (BLOOD GLUCOSE TEST) test strip Test blood sugar(s) 1 times daily. Dx: Type 2 DM - Uncontrolled E11.65 Insulin: No 50 Strip 11 Lancets lancets Test blood sugar(s) 1 times daily. Dx: Type 2 DM - Uncontrolled E11.65 Insulin: No 100 Each 11 Blood-Glucose Meter monitoring kit Glucose Meter of Choice - Kit - Use once daily Dx: Type 2 DM - Uncontrolled E11.65 1 Each 0 albuterol HFA (VENTOLIN HFA) 90 mcg/actuation inhaler Inhale 2 Puffs as instructed every 4 hours asneeded. 1 Each 2 ibuprofen (MOTRIN) 200 mg tablet Take 3 tablets by mouth every 6 hours as needed for Pain (Take with food.). 0 aspirin, enteric coated (ASPIRIN, ENTERIC COATED) 81 mg EC tablet Take 81 mg by mouth once daily. NITROGLYCERIN BUCCAL Place between cheek and gum. No current facility-administered medications for this visit. ROS ROS: Her ROS was positive for that mentioned in the HPI. Otherwise a 10-point ROS was completed andwas negative. ALLERGIES Allergen Reactions Poison Rahel Extract Other: See Comments Severe rash [id number] Red* Other: See Comments cholesterol medications cause liver pain Past Medical History: PAST MEDICAL HISTORY Diagnosis Date Asthma See PFT 12/2020 CKD (chronic kidney disease), stage III (HCC) Coronary artery disease s/p PTCA with ALEXIS to RCA 04/27 Depression Diabetes type II (HCC) Gallstones 10/02/2017 Horseshoe kidney 10/02/2017 Hyperlipidemia Hypertension Hypothyroidism Liver cyst 10/03/2017 Myocardial infarction (HCC) [address] Delgado Non-rheumatic mitral regurgitation 10/03/2017 Shingles Tobacco use disorder Family History: FAMILY HISTORY Problem Relation Age of Onset Heart Mother Diabetes Mother Hypertension Mother Hypertension Sister Thyroid Sister Asthma Sister other (unknown) Father Skin Cancer Other 1st cousin, unsure of type No family history of tremor Social History: Social History Tobacco Use Smoking status: Current Every Day Smoker Packs/day: 0.50 Years: 40.00 Pack years: 20.00 Types: Cigarettes Start date: 08/14/1969 Smokeless tobacco: Never Used Substance Use Topics Alcohol use: No Comment: Rarely Drug use: No Retired from [employer], made the BAC ON TRACs 1 PPD, minimal etoh Objective 12/24/21 0839 BP: 114/64 BP Site: Left Arm BP Position: Sitting BP Cuff Size: Large Adult Pulse: 77 Weight: 89.8 kg (198 lb) Height: 161.3 cm (5' 3.5") Physical Examination General Appearance: Well appearing, alert, in no acute distress, well-hydrated, well nourished. Head: Normocephalic Neck: Supple Heart: RRR Peripheral Pulses: Normal Neurologic Examination Mental Status: She is alert. She is fully oriented. Attention is intact. Recent and remote memory is intact. Language shows normal comprehension and fluency. Affect is appropriate. Cranial Nerves: Pupils are equal and reactive to light. Extraocular movements show full and smooth pursuits. No nystagmus. Funduscopic exam shows sharp optic discs and normal vasculature. Visual greenwood are full to confrontation. Facial sensation is intact. Facial activation is symmetric. Hearing isintact to conversation. There is no hypomimia. There is no hypophonia. There is no dysarthria. Tongue is midline. Palate elevates symmetrically. Shoulder shrug is normal. Motor: Muscle bulk is normal. Rapid alternating movements are normal. Muscle power is full. No rest tremor. Rare infrequent postural tremor of right hand when extended but does come out a bitmore when arms flexed to body, not clearly different with supinated or pronated position. Tremor issevere during writing with right hand with severe difficulty. No significant tremor when writing with left hand. No tremor in right hand when writing with left hand. Mild right kinetic tremor. Sensory: Intact to fine touch, temp, and vibration. Reflex: Biceps and brachioradialis is 2+ bilaterally. Patellar reflex 2+ bilaterally. Ankle jerks trace bilaterally. Coordination: Finger to nose is smooth without ataxia. Gait/station: Normal DATA REVIEWED Actual films/image/tracing reviewed and summarized as follows: n/a Old records reviewed and summarized as follows: Reviewed PCP referral records TSH 0.814 Assessment/Plan Assessment & Plan: Zoraida Brath is a 71 year old right-handed female with a history of DM, HTN, HLD, and CAD with stent who presents for evaluation of tremor. Her examination demonstrates right hand tremor most prominently with writing or in some positions. We discussed her presentation. No concern for PD. 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 Explained these different diagnoses and treatment approach. She is already on low dose metoprolol, if able to change to propranolol might find more tremor benefit with it. History of depression and anxiety, would need to watch for mood changes if pushing dose of beta juan j. Will try primidone titrating to 100 mg QHS, discussed side effects and use. In future multiple other medications that could be tried. She should return to see me in 4 months. Dean Dubois MD [facility] documented in this encounter[address]-2018 History of Past illness Narrative* Problem Noted Date Resolved Date Depression 10/02/2017 02/20/2018 Coronary artery disease 08/22/19 18 documented as of this encounter (statuses as of 12/24/2021) [address]19[address]2018 History of Past illness Narrative* Problem Noted Date Resolved Date Depression 10/02/2017 02/20/2018 Coronary artery disease 08/22/19 18 documented as of this encounter (statuses as of 01/28/2022) [address]2018 History of Past illness Narrative* Problem Noted Date Resolved Date Depression 10/02/2017 02/20/2018 Coronary artery disease 08/22/19 18 documented as of this encounter (statuses as of 02/17/2022) [address] History of Past illness Narrative* Problem Noted Date Resolved Date Depression 10/02/2017 02/20/2018 Coronary artery disease 08/22/19 18 documented as of this encounter (statuses as of 02/23/2022) [address]2018 History of Past illness Narrative* Problem Noted Date Resolved Date Depression 10/02/2017 02/20/2018 Coronary artery disease 08/22/19 18 documented as of this encounter (statuses as of 03/28/2022) [address] History of Past illness Narrative* Problem Noted Date Resolved Date Depression 10/02/2017 02/20/2018 Coronary artery disease 08/22/19 18 documented as of this encounter (statuses as of 04/01/2022) [address] History of Past illness Narrative* Problem Noted Date Resolved Date Depression 10/02/2017 02/20/2018 Coronary artery disease 08/22/19 18 documented as of this encounter (statuses as of 04/28/2022) [address] History of Past illness Narrative* Problem Noted Date Resolved Date Depression 10/02/2017 02/20/2018 Coronary artery disease 08/22/19 18 documented as of this encounter (statuses as of 05/19/2022) [address] History of Past illness Narrative* Problem Noted Date Resolved Date Depression 10/02/2017 02/20/2018 Coronary artery disease 08/22/19 18 documented as of this encounter (statuses as of 05/23/2022) [address] History of Past illness Narrative* Problem Noted Date Resolved Date Depression 10/02/2017 02/20/2018 Coronary artery disease 08/22/19 18 documented as of this encounter (statuses as of 05/30/2022) [address] History of Past illness Narrative* Problem Noted Date Resolved Date Depression 10/02/2017 02/20/2018 Coronary artery disease 08/22/19 18 documented as of this encounter (statuses as of 06/14/2022) [address] History of Past illness Narrative* Problem Noted Date Resolved Date Depression 10/02/2017 02/20/2018 Coronary artery disease 08/22/19 18 documented as of this encounter (statuses as of 07/11/2022) [address] History of Past illness Narrative* Problem Noted Date Resolved Date Depression 10/02/2017 02/20/2018 Coronary artery disease 08/22/19 18 documented as of this encounter (statuses as of 07/12/2022) [address] History of Past illness Narrative* Problem Noted Date Resolved Date Depression 10/02/2017 02/20/2018 Coronary artery disease 08/22/19 18 Prediabetes 07/27/2022 documented as of this encounter (statuses as of 07/27/2022) [address] History of Past illness Narrative* Problem Noted Date Resolved Date Depression 10/02/2017 02/20/2018 Coronary artery disease 08/22/19 18 Prediabetes 07/27/2022 documented as of this encounter (statuses as of 08/16/2022) [address] History of Past illness Narrative* Problem Noted Date Resolved Date Depression 10/02/2017 02/20/2018 Coronary artery disease 08/22/19 18 Prediabetes 07/27/2022 documented as of this encounter (statuses as of 08/16/2022) [address] History of Past illness Narrative* Problem Noted Date Resolved Date Depression 10/02/2017 02/20/2018 Coronary artery disease 08/22/19 18 Prediabetes 07/27/2022 documented as of this encounter (statuses as of 08/29/2022) [address] History of Past illness Narrative* Problem Noted Date Resolved Date Depression 10/02/2017 02/20/2018 Coronary artery disease 08/22/19 18 Prediabetes 07/27/2022 documented as of this encounter (statuses as of 09/05/2022) [address] History of Past illness Narrative* Problem Noted Date Resolved Date Depression 10/02/2017 02/20/2018 Coronary artery disease 08/22/19 18 Prediabetes 07/27/2022 documented as of this encounter (statuses as of 09/07/2022) [address] History of Past illness Narrative* Problem Noted Date Resolved Date Depression 10/02/2017 02/20/2018 Coronary artery disease 08/22/19 18 Prediabetes 07/27/2022 documented as of this encounter (statuses as of 09/28/2022) [address] History of Past illness Narrative* Problem Noted Date Resolved Date Depression 10/02/2017 02/20/2018 Coronary artery disease 08/22/19 18 Prediabetes 07/27/2022 documented as of this encounter (statuses as of 10/03/2022) [address] History of Past illness Narrative* Problem Noted Date Resolved Date Depression 10/02/2017 02/20/2018 Coronary artery disease 08/22/19 18 Prediabetes 07/27/2022 documented as of this encounter (statuses as of 10/22/2022) [address] History of Past illness Narrative* Problem Noted Date Resolved Date Depression 10/02/2017 02/20/2018 Coronary artery disease 08/22/19 18 Prediabetes 07/27/2022 documented as of this encounter (statuses as of 10/31/2022) [address] History of Past illness Narrative* Problem Noted Date Resolved Date Depression 10/02/2017 02/20/2018 Coronary artery disease 08/22/19 18 Prediabetes 07/27/2022 documented as of this encounter (statuses as of 11/02/2022) [address] History of Past illness Narrative* Problem Noted Date Resolved Date Depression 10/02/2017 02/20/2018 Coronary artery disease 08/22/19 18 Prediabetes 07/27/2022 documented as of this encounter (statuses as of 11/25/2022) [facility] Narrative* Problem Noted Date Resolved Date Depression 10/02/2017 02/20/2018 Coronary artery disease 08/22/19 18 Prediabetes 07/27/2022 documented as of this encounter (statuses as of 11/26/2022) [facility] Narrative* Problem Noted Date Resolved Date Depression 10/02/2017 02/20/2018 Coronary artery disease 08/22/19 18 Prediabetes 07/27/2022 documented as of this encounter (statuses as of 11/28/2022) [address] History of Past illness Narrative* Problem Noted Date Resolved Date Depression 10/02/2017 02/20/2018 Coronary artery disease 08/22/19 18 Prediabetes 07/27/2022 documented as of this encounter (statuses as of 12/18/2022) [address] History of Past illness Narrative* Problem Noted Date Resolved Date Depression 10/02/2017 02/20/2018 Coronary artery disease 08/22/19 18 Prediabetes 07/27/2022 documented as of this encounter (statuses as of 12/26/2022) [facility] Narrative* Problem Noted Date Resolved Date Depression 10/02/2017 02/20/2018 Coronary artery disease 08/22/19 18 Prediabetes 07/27/2022 documented as of this encounter (statuses as of 01/24/2023) [address] History of Past illness Narrative* Problem Noted Date Resolved Date Depression 10/02/2017 02/20/2018 Coronary artery disease 08/22/19 18 Prediabetes 07/27/2022 documented as of this encounter (statuses as of 01/28/2023) [address] History of Past illness Narrative* Problem Noted Date Resolved Date Depression 10/02/2017 02/20/2018 Coronary artery disease 08/22/19 18 Prediabetes 07/27/2022 documented as of this encounter (statuses as of 01/28/2023) [address] History of Past illness Narrative* Problem Noted Date Resolved Date Depression 10/02/2017 02/20/2018 Coronary artery disease 08/22/19 18 Prediabetes 07/27/2022 documented as of this encounter (statuses as of 02/14/2023) [address] History of Past illness Narrative* Problem Noted Date Resolved Date Depression 10/02/2017 02/20/2018 Coronary artery disease 08/22/19 18 Prediabetes 07/27/2022 documented as of this encounter (statuses as of 02/17/2023) [address] History of Past illness Narrative* Problem Noted Date Diagnosed Date Resolved Date Depression 10/02/2017 02/20/2018 Coronary artery disease 01/0 04/2018 Prediabetes 07/27/2022 documented as of this encounter (statuses as of 02/21/2023) [address] History of Past illness Narrative* Problem Noted Date Diagnosed Date Resolved Date Depression 10/02/2017 02/20/2018 Coronary artery disease 01/0 04/2018 Prediabetes 07/27/2022 documented as of this encounter (statuses as of 02/22/2023) [address] History of Past illness Narrative* Problem Noted Date Diagnosed Date Resolved Date Depression 10/02/2017 02/20/2018 Coronary artery disease 01/0 04/2018 Prediabetes 07/27/2022 documented as of this encounter (statuses as of 03/10/2023) [address] History of Past illness Narrative* Problem Noted Date Diagnosed Date Resolved Date Depression 10/02/2017 02/20/2018 Coronary artery disease 01/0 04/2018 Prediabetes 07/27/2022 documented as of this encounter (statuses as of 03/21/2023) [address] History of Past illness Narrative* Problem Noted Date Diagnosed Date Resolved Date Depression 10/02/2017 02/20/2018 Coronary artery disease 01/0 04/2018 Prediabetes 07/27/2022 documented as of this encounter (statuses as of 03/23/2023) [address] History of Past illness Narrative* Problem Noted Date Diagnosed Date Resolved Date Depression 10/02/2017 02/20/2018 Coronary artery disease 01/0 04/2018 Prediabetes 07/27/2022 documented as of this encounter (statuses as of 03/23/2023) [address] History of Past illness Narrative* Problem Noted Date Diagnosed Date Resolved Date Depression 10/02/2017 02/20/2018 Coronary artery disease 01/0 04/2018 Prediabetes 07/27/2022 documented as of this encounter (statuses as of 03/24/2023) [address] History of Past illness Narrative* Problem Noted Date Diagnosed Date Resolved Date Depression 10/02/2017 02/20/2018 Coronary artery disease 01/0 04/2018 Prediabetes 07/27/2022 documented as of this encounter (statuses as of 03/29/2023) [address] History of Past illness Narrative* Problem Noted Date Diagnosed Date Resolved Date Depression 10/02/2017 02/20/2018 Coronary artery disease 01/0 04/2018 Prediabetes 07/27/2022 documented as of this encounter (statuses as of 03/30/2023) [address] History of Past illness Narrative* Problem Noted Date Diagnosed Date Resolved Date Depression 10/02/2017 02/20/2018 Coronary artery disease 01/0 04/2018 Prediabetes 07/27/2022 documented as of this encounter (statuses as of 04/05/2023) [facility] Narrative* Problem Noted Date Diagnosed Date Resolved Date Depression 10/02/2017 02/20/2018 Coronary artery disease 01/0 04/2018 Prediabetes 07/27/2022 documented as of this encounter (statuses as of 04/13/2023) [address] History of Past illness Narrative* Problem Noted Date Diagnosed Date Resolved Date Depression 10/02/2017 02/20/2018 Coronary artery disease 01/0 04/2018 Prediabetes 07/27/2022 documented as of this encounter (statuses as of 04/20/2023) [address] History of Past illness Narrative* Problem Noted Date Diagnosed Date Resolved Date Depression 10/02/2017 02/20/2018 Coronary artery disease 01/0 04/2018 Prediabetes 07/27/2022 documented as of this encounter (statuses as of 06/05/2023) [address] History of Past illness Narrative* Problem Noted Date Diagnosed Date Resolved Date Depression 10/02/2017 02/20/2018 Coronary artery disease 01/0 04/2018 Prediabetes 07/27/2022 documented as of this encounter (statuses as of 06/12/2023) [address] History of Past illness Narrative* Problem Noted Date Diagnosed Date Resolved Date Depression 10/02/2017 02/20/2018 Coronary artery disease 01/0 04/2018 Prediabetes 07/27/2022 documented as of this encounter (statuses as of 07/13/2023) [address] History of Past illness Narrative* Problem Noted Date Diagnosed Date Resolved Date Depression 10/02/2017 02/20/2018 Coronary artery disease 01/0 04/2018 Prediabetes 07/27/2022 documented as of this encounter (statuses as of 07/28/2023) [address] History of Past illness Narrative* Problem Noted Date Diagnosed Date Resolved Date Depression 10/02/2017 02/20/2018 Coronary artery disease 01/0 04/2018 Prediabetes 07/27/2022 documented as of this encounter (statuses as of 08/07/2023) [address] History of Past illness Narrative* Problem Noted Date Diagnosed Date Resolved Date Depression 10/02/2017 02/20/2018 Coronary artery disease 01/0 04/2018 Prediabetes 07/27/2022 documented as of this encounter (statuses as of 09/15/2023) [address] History of Past illness Narrative* Problem Noted Date Diagnosed Date Resolved Date Depression 10/02/2017 02/20/2018 Coronary artery disease 01/0 04/2018 Prediabetes 07/27/2022 documented as of this encounter (statuses as of 10/04/2023) [address] History of Past illness Narrative* Problem Noted Date Diagnosed Date Resolved Date Depression 10/02/2017 02/20/2018 Coronary artery disease 01/0 04/2018 Prediabetes 07/27/2022 documented as of this encounter (statuses as of 10/04/2023) [address]2018 History of Past illness Narrative* Problem Noted Date Diagnosed Date Resolved Date Depression 10/02/2017 02/20/2018 Coronary artery disease 01/0 04/2018 Prediabetes 07/27/2022 documented as of this encounter (statuses as of 10/05/2023) [address] History of Past illness Narrative* Problem Noted Date Diagnosed Date Resolved Date Depression 10/02/2017 02/20/2018 Coronary artery disease /0 04/2018 Prediabetes 07/27/2022 documented as of this encounter (statuses as of 10/12/2023) [address] History of Past illness Narrative* Problem Noted Date Diagnosed Date Resolved Date Depression 10/02/2017 02/20/2018 Coronary artery disease /0 04/2018 Prediabetes 07/27/2022 documented as of this encounter (statuses as of 10/13/2023) [address] History of Past illness Narrative* Problem Noted Date Diagnosed Date Resolved Date Depression 10/02/2017 02/20/2018 Coronary artery disease /0 04/2018 Prediabetes 07/27/2022 documented as of this encounter (statuses as of 10/30/2023) [address] History of Past illness Narrative* Problem Noted Date Diagnosed Date Resolved Date Depression 10/02/2017 02/20/2018 Coronary artery disease /0 04/2018 Prediabetes 07/27/2022 documented as of this encounter (statuses as of 10/31/2023) [address] History of Past illness Narrative* Problem Noted Date Diagnosed Date Resolved Date Depression 10/02/2017 02/20/2018 Coronary artery disease /0 04/2018 Prediabetes 07/27/2022 documented as of this encounter (statuses as of 11/01/2023) [address] History of Past illness Narrative* Problem Noted Date Diagnosed Date Resolved Date Depression 10/02/2017 02/20/2018 Coronary artery disease /0 04/2018 Prediabetes 07/27/2022 documented as of this encounter (statuses as of 11/02/2023) [address] History of Past illness Narrative* Problem Noted Date Diagnosed Date Resolved Date Depression 10/02/2017 02/20/2018 Coronary artery disease /0 04/2018 Prediabetes 07/27/2022 documented as of this encounter (statuses as of 11/15/2023) [address] History of Past illness Narrative* Problem Noted Date Diagnosed Date Resolved Date Depression 10/02/2017 02/20/2018 Coronary artery disease 01/0 04/2018 Prediabetes 07/27/2022 documented as of this encounter (statuses as of 11/17/2023) [facility] History of Past illness Narrative* Problem Noted Date Diagnosed Date Resolved Date Depression 10/02/2017 02/20/2018 Coronary artery disease 01/0 04/2018 Prediabetes 07/27/2022 documented as of this encounter (statuses as of 11/23/2023) [facility] History of Past illness Narrative* Problem Noted Date Diagnosed Date Resolved Date Depression 10/02/2017 02/20/2018 Coronary artery disease 01/0 04/2018 Prediabetes 07/27/2022 documented as of this encounter (statuses as of 11/23/2023) [facility] History of Past illness Narrative* Problem Noted Date Diagnosed Date Resolved Date Depression 10/02/2017 02/20/2018 Coronary artery disease /0 04/2018 Prediabetes 07/27/2022 documented as of this encounter (statuses as of 11/30/2023) [facility] History of Past illness Narrative* Problem Noted Date Diagnosed Date Resolved Date Depression 10/02/2017 02/20/2018 Coronary artery disease /0 04/2018 Prediabetes 07/27/2022 documented as of this encounter (statuses as of 11/20/2023) [facility]2014 Evaluation note* Diagnosis Onset Date Resolution Status Atherosclerotic heart diseas e of [place] coronary artery without angina pectoris chronic Essential hypertension chron ic HLD (hyperlipidemia) chronic Presence of stent in coronary artery April, chronic PVC (premature ventricular contraction) [facility] Work Phone: Evaluation note* Diagnosis Tremor- Primary Abnormal involuntary movements [facility] Diagnosis Mild episode of recurrent major depressive disorder (HCC) [facility]* Diagnosis Essential hypertension Unspecified essential hypertension [facility] Diagnosis Type 2 diabetes mellitus with chronic kidney disease, without long-term current use of insulin (HCC) [facility]* Diagnosis Stage 3a chronic kidney disease (HCC)- Primary [facility] Essential hypertension Unspecified essential hypertension [facility]* Diagnosis Tremor Abnormal involuntary movements [facility]* Diagnosis Annual physical exam- Primary Routine general medical examination at a health care facility Viral URI with cough Acute upper respiratory infections of unspecified site Diabetes type II (HCC) Essential hypertension Unspecified essential hypertension Stage 3a chronic kidney disease (HCC) Horseshoe kidney Other specified congenital anomaly of kidney Mild episode of recurrent major depressive disorder (HCC) Acquired hypothyroidism Unspecified hypothyroidism Coronary artery disease involving [place] coronary artery of [place] heart without angina pectoris Tobacco use disorder Need for COVID-19 vaccine Advance directive discussed with patient Other specified counseling [facility]* Diagnosis Encounter for screening mammogram for breast cancer [facility] Diagnosis Stage 3 chronic kidney disease, unspecified whether stage 3a or 3b CKD (HCC)- Primary [facility]* Diagnosis Essential hypertension Unspecified essential hypertension [facility]* Diagnosis Mild episode of recurrent major depressive disorder (HCC)- Primary Tobacco use disorder Type 2 diabetes mellitus with stage 3a chronic kidney disease, without long-term current use of insulin (HCC) [facility]* Diagnosis Sore throat- Primary Acute pharyngitis Viral URI Acute upper respiratory infections of unspecified site [facility] Diagnosis Tremor Abnormal involuntary movements [facility] Diagnosis Tremor- Primary Abnormal involuntary movements [facility]* Diagnosis Essential hypertension Unspecified essential hypertension Mild episode of recurrent major depressive disorder (HCC) [facility] noteNo assessment information availableWMercy [facility] Work Phone: Evaluation note* Diagnosis Procedure not carried out- Primary Procedure not carried out for other reasons [facility]* Diagnosis Chronic bilateral low back pain without sciatica- Primary Onychomycosis Dermatophytosis of nail [facility]* Diagnosis Chronic bilateral low back pain with bilateral sciatica- Primary [facility]* Diagnosis Chronic bilateral low back pain with bilateral sciatica- Primary [facility] Diagnosis Chest pain, unspecified type- Primary Coronary artery disease involving [place] coronary artery of [place] heart without angina pectoris Essential hypertension Unspecified essential hypertension Mixed hyperlipidemia [facility]* Diagnosis Chronic bilateral low back pain with bilateral sciatica- Primary [facility]* Diagnosis Chronic bilateral low back pain with bilateral sciatica- Primary [facility]* Diagnosis Tremor- Primary Abnormal involuntary movements [facility]* Diagnosis Essential hypertension- Primary Unspecified essential hypertension Encounter for immunization Need for other specified prophylactic vaccination against single bacterial disease Coronary artery disease involving [place] coronary artery of [place] heart without angina pectoris Type 2 diabetes mellitus with stage 3a chronic kidney disease, 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 (HCC) Chronic airway obstruction, not elsewhere classified Body mass index (BMI) 40.0-44.9, adult (HCC) Mixed hyperlipidemia Tremor Abnormal involuntary movements [facility]* Diagnosis Encounter for screening mammogram for breast cancer [facility]* Diagnosis Mild episode of recurrent major depressive disorder (HCC) [facility]* Diagnosis Eye abnormalities- Primary Unspecified congenital anomaly of eye Drowsy Other alteration of consciousness [facility]* Diagnosis Mild chronic obstructive pulmonary disease (HCC)- Primary Chronic airway obstruction, not elsewhere classified [facility]* Diagnosis Medication management- Primary Encounter for long-term (current) use of other medications documented in this encounter [facility] note* Diagnosis Medication management- Primary Encounter for long-term (current) use of other medications [facility]* Diagnosis Acute hip pain, left- Primary [facility]* Diagnosis Acute hip pain, left- Primary [facility]* Diagnosis Acute hip pain, left- Primary [facility]* Diagnosis Acute hip pain, left- Primary [facility]* Diagnosis Acute hip pain, left- Primary [facility]* Diagnosis Acute hip pain, left- Primary [facility] Diagnosis Acute hip pain, left- Primary [facility]* Diagnosis Medicare annual wellness visit, subsequent- Primary Routine general medical examination at a health care facility Essential hypertension Unspecified essential hypertension Screening for lung cancer Tobacco use disorder Encounter for immunization Need for other specified prophylactic vaccination against single bacterial disease Body mass index (BMI) 40.0-44.9, adult (HCC) Type 2 diabetes mellitus with stage 3a chronic kidney disease, without long-term current use of insulin (HCC) [facility]* Diagnosis Essential hypertension Unspecified essential hypertension [facility]* Diagnosis Essential hypertension Unspecified essential hypertension [facility]* Diagnosis Screening for lung cancer- Primary Tobacco use disorder [facility]* Diagnosis Mild episode of recurrent major depressive disorder (HCC) [facility]* Diagnosis Type 2 diabetes mellitus with stage 3a chronic kidney disease, without long-term current use of insulin (HCC)- Primary Stage 3a chronic kidney disease (HCC) Essential hypertension Unspecified essential hypertension Leukocytosis, unspecified type Acquired hypothyroidism Unspecified hypothyroidism Tobacco use disorder [facility] Diagnosis Fall, initial encounter- Primary Bilateral hip pain Pain in joint, pelvic region and thigh Lumbar back pain Lumbago Bilateral hip pain Pain in joint, pelvic region and thigh Lumbar back pain Lumbago [facility]* Diagnosis Bilateral hip pain Pain in joint, pelvic region and thigh Lumbar back pain Lumbago [facility]* Diagnosis Abdominal aortic aneurysm (AAA) without rupture, unspecified part (HCC)- Primary Abdominal aortic aneurysm (AAA) without rupture, unspecified part (HCC) [facility]* Diagnosis Abdominal aortic aneurysm (AAA) without rupture, unspecified part (HCC) documented [facility]* Diagnosis Acute hip pain, left documented [facility]* Diagnosis Primary hypertension- Primary Unspecified essential hypertension CKD stage 3b, GFR 30-44 ml/min (HCC) [facility]* Diagnosis Acute hip pain, left- Primary [facility]* Diagnosis Abdominal aortic aneurysm (AAA) without rupture, unspecified part (HCC)- Primary PAD (peripheral artery disease) (HCC) Peripheral vascular disease, unspecified documented in this encounter [facility] note* Diagnosis Tremor- Primary Abnormal involuntary movements documented in this encounter [facility] note* Diagnosis Encounter for screening mammogram for breast cancer documented in this encounter [facility] note* Diagnosis Essential hypertension Unspecified essential hypertension documented in this encounter [facility] note* Diagnosis Mild episode of recurrent major depressive disorder (HCC) documented in this encounter [facility] note* Diagnosis Essential hypertension Unspecified essential hypertension documented in this encounter [facility] note* Diagnosis Tremor Abnormal involuntary movements documented in this encounter [facility] note* Diagnosis Essential hypertension Unspecified essential hypertension documented in this encounter [facility] note* Diagnosis Mild episode of recurrent major depressive disorder documented in this encounter [facility] note* Diagnosis Essential hypertension Unspecified essential hypertension documented in this encounter [facility] note* Diagnosis Essential hypertension Unspecified essential hypertension [facility] Additional Instructions Thank you for trusting us with your care today! Please take Tylenol (2 pills, 650 mg), ibuprofen (2 pills, 400 mg) every 6 hours as needed for pain and fever control. Please take eyedrops as prescribed. Please use tetracaine only 1 drop in the affected eye only twice a day. Only use this for the next 5 days. Please return to the emergency department if your symptoms change or worsen. Specifically develop loss of vision, blurry vision, increasing pain. Please follow with your primary care physician for further outpatient evaluation and management.[facility] Work Phone: Reason for referral (narrative)* Diagnostic Procedure Only (Routine) - Pending Review Specialty Diagnoses / Procedures Referred By Contac t Referred To Contact BR IMAGING Diagnoses Encounter for screening mammogram for breast cancer Procedures AISHA SCREENING SCREENING MAMMOGRAPHY BI 2-VIEW BREAST INC CAD Sherri Davalos MD [address] [place] [address] [facility] [address] [place] [address] Referral ID Status Reason Start Date Expiration Date Visits Requested Visits Authorized [id number] Pending Review Auto-Generat ed Referral 08/24/2022 09/23/2023 1 1 [facility] for referral (narrative)* Diagnostic Procedure Only (Routine) - Pending Review Specialty Diagnoses / Procedures Referred By Contac t Referred To Contact BR IMAGING Diagnoses Encounter for screening mammogram for breast cancer Procedures AISHA SCREENING SCREENING MAMMOGRAPHY BI 2-VIEW BREAST INC CAD Sherri Davalos MD [address] [place] [address] [facility] [address] [place] [address] Referral ID Status Reason Start Date Expiration Date Visits Requested Visits Authorized [id number] Pending Review Auto-Generat ed Referral 08/31/2024 1 1 [facility] for referral (narrative)* Diagnostic Procedure Only (Urgent) - Closed Specialty Diagnoses / Procedures Referred By Contac t Referred To Contact XR IMAGING Diagnoses Lumbar back pain Procedures XR LUMBAR GENERAL 3V AP/LAT/L5-S1 RADEX SPINE LUMBOSACRAL 2/3 VIEWS Zeynep Schmidt APRN.ROLL COATING MACHINE OPERATOR [address] [place] [address] [place] [address] Referral ID Status Reason Start Date Expiration Date V isits Requested Visits Authorized [id number] Closed Auto-Generate d Referral 04/19/2024 05/19/2025 1 1 * Diagnostic Procedure Only (Urgent) - Closed Specialty Diagnoses / Procedures Referred By Contac t Referred To Contact XR IMAGING Diagnoses Bilateral hip pain Procedures XR HIP BILATERAL 5V PEL/AP/LAT EACH HIP RADEX HIPS BILATERAL WITH PELVIS MINIMUM 5 VIEWS Zeynep Schmidt APRN.ROLL COATING MACHINE OPERATOR [address] [place] [address] [place] [address] Referral ID Status Reason Start Date Expiration Date V isits Requested Visits Authorized [id number] Closed Auto-Generate d Referral 04/19/2024 05/19/2025 1 1 [facility] for referral (narrative)* Diagnostic Procedure Only (Urgent) - Closed Specialty Diagnoses / Procedures Referred By Contac t Referred To Contact XR IMAGING Diagnoses Lumbar back pain Procedures XR LUMBAR GENERAL 3V AP/LAT/L5-S1 RADEX SPINE LUMBOSACRAL 2/3 VIEWS PodZeynep hennessy APRN.ROLL COATING MACHINE OPERATOR [address] [place] [address] [place] [address] Referral ID Status Reason Start Date Expiration Date V isits Requested Visits Authorized [id number] Closed Auto-Generate d Referral 04/19/2024 05/19/2025 1 1 * Diagnostic Procedure Only (Urgent) - Closed Specialty Diagnoses / Procedures Referred By Contac t Referred To Contact XR IMAGING Diagnoses Bilateral hip pain Procedures XR HIP BILATERAL 5V PEL/AP/LAT EACH HIP RADEX HIPS BILATERAL WITH PELVIS MINIMUM 5 VIEWS Zeynep Schmidt APRN.ROLL COATING MACHINE OPERATOR [address] [place] [address] [place] [address] Referral ID Status Reason Start Date Expiration Date V isits Requested Visits Authorized [id number] Closed Auto-Generate d Referral 04/19/2024 05/19/2025 1 1 [facility] for referral (narrative)* Diagnostic Procedure Only (Routine) - Closed Specialty Diagnoses / Procedures Referred By Contac t Referred To Contact US IMAGING Diagnoses Abdominal aortic aneurysm (AAA) without rupture, unspecified part (HCC) Procedures US DOPPLER AORTA DUP-SCAN ARTL DMITRI ABDL/PEL/SCROT&/RPR ORGN LMT Zeynep Schmidt APRN.ROLL COATING MACHINE OPERATOR [address] [place] [address] [place] [address] Referral ID Status Reason Start Date Expiration Date V isits Requested Visits Authorized [id number] Closed Auto-Generate d Referral 04/19/2024 05/19/2025 1 1 * Diagnostic Procedure Only (Routine) - Closed Specialty Diagnoses / Procedures Referred By Contac t Referred To Contact US IMAGING Diagnoses Abdominal aortic aneurysm (AAA) without rupture, unspecified part (HCC) Procedures US ABD AORTA US RETROPERITONEAL REAL TIME W/IMAGE LIMITED MiltonlogZeynep aly APRN.CNP [address] [place] [address] [place] [address] Referral ID Status Reason Start Date Expiration Date V isits Requested Visits Authorized [id number] Closed Auto-Generate d Referral 04/19/2024 05/19/2025 1 1 [facility] for referral (narrative)* Diagnostic Procedure Only (Urgent) - Closed Specialty Diagnoses / Procedures Referred By Contac t Referred To Contact XR IMAGING Diagnoses Acute hip pain, left Procedures XR HIP GENERAL 3V PELV/AP/LAT LEFT RADEX HIP UNILATERAL WITH PELVIS 2-3 VIEWS Sherri Davalos MD [address] [place] [address] [place] [address] Referral ID Status Reason Start Date Expiration Date V isits Requested Visits Authorized [id number] Closed Auto-Generate d Referral 10/30/2023 11/28/2024 1 1 [facility] for referral (narrative)* Outpatient Procedure (Routine) - New Request Specialty Diagnoses / Procedures Referred By Contac t Referred To Contact [facility] Diagnoses PAD (peripheral artery disease) (HCC) Procedures PVR LEG W/EXC DM VAS LAB N-INVAS PHYSIOLOGIC STD LXTR ART COMPL BI Carrillo, Flex, DO [address] [place] [address] [facility] [address] [place], [place] [id number] Referral ID Status Reason Start Date Expiration Date Visits Requested Visits Authorized [id number] New Request Auto-Generat ed Referral 02/20/2025 05/21/2025 1 1 * Outpatient Procedure (Routine) - New Request Specialty Diagnoses / Procedures Referred By Contac t Referred To [facility] Diagnoses Abdominal aortic aneurysm (AAA) without rupture, unspecified part (HCC) Procedures US ABD AORTA COMPLETE VAS LAB DUP-SCAN AORTA IVC ILIAC VASCL/BPGS COMPLETE Flex Carrillo DO [address] [place] [address] [facility] [address] [place] [address] Referral ID Status Reason Start Date Expiration Date Visits Requested Visits Authorized [id number] New Request Auto-Generat ed Referral 02/20/2025 05/21/2025 1 1 [facility] for referral (narrative)* Diagnostic Procedure Only (Routine) - New Request Specialty Diagnoses / Procedures Referred By Alice t Referred To Contact BR IMAGING Diagnoses Encounter for screening mammogram for breast cancer Procedures AISHA SCREENING W JASE SCREENING DIGITAL BREAST TOMOSYNTHESIS BI SCREENING MAMMOGRAPHY BI 2-VIEW BREAST INC CAD Sherri Davalos MD [address] [place] [address] [facility] [address] [place] [address] Referral ID Status Reason Start Date Expiration Date Visits Requested Visits Authorized [id number] New Request Auto-Generat ed Referral 07/17/2024 08/16/2025 1 1 [facility] for visit Narrative* Diagnostic Procedure Only (Urgent) - Closed Specialty Diagnoses / Procedures Referred By Contac t Referred To Contact XR IMAGING Diagnoses Lumbar back pain Procedures XR LUMBAR GENERAL 3V AP/LAT/L5-S1 RADEX SPINE LUMBOSACRAL 2/3 VIEWS PodlogarZeynep APRN.ROLL COATING MACHINE OPERATOR [address] [place] [address] [place] [address] Referral ID Status Reason Start Date Expiration Date V isits Requested Visits Authorized [id number] Closed Auto-Generate d Referral 04/19/2024 05/19/2025 1 1 [facility] Diagnostic Procedure Only (Urgent) - Closed Specialty Diagnoses / Procedures Referred By Alice t Referred To Contact XR IMAGING Diagnoses Acute hip pain, left Procedures XR HIP GENERAL 3V PELV/AP/LAT LEFT RADEX HIP UNILATERAL WITH PELVIS 2-3 VIEWS Sherri Davalos MD [address] [place] [address] [place] [address] Referral ID Status Reason Start Date Expiration Date V isits Requested Visits Authorized [id number] Closed Auto-Generate d Referral 10/30/2023 11/28/2024 1 1 [facility] Summary Purpose Family History Relationship Condition Age at Onset Recorded Date/T heather father Coronary artery disease Unknown mother Coronary artery disease Unknown sister Atrial fibrillation Unknown Advance Directives Advance Directive Response Recorded Date/ Time Living Will No January 21, 2021 7:41pm Power of Alarm Investigator No January 21 7:41pm Documents on File Type Date Recorded Patient Control Officer Manager Expl anation Advance Directive(s) 10/18/2017 8:01 AM Advance Directive Response Recorded Date/ Time Living Will No February 14, 2023 4 :48pm Power of Alarm Investigator No February 14, 2023 4:48pm Advance Directive Response Recorded Date/ Time Name of Medical Power of Alarm Investigator DAUGHTER NAE March 22, 2023 11:20am Living Will Yes March 22, 2023 11:20am Power of Alarm Investigator Yes March 22 11:20am Chief Complaint and Reason for Visit Chief Complaint 10 m fu INT LABS Reason for Visit Atherosclerotic hear t disease of [place] coronary artery without angina pectoris Essential hypertension HLD (hyperlipidemia) Presence of stent in coronary artery PVC (premature ventricular contraction) Chief Complaint EYE INJURY Chief Complaint EYE INJURY CHEST PAIN Reason for Referral Specialty Diagnoses / Procedures Referred By Alice t Referred To Contact [facility] Diagnoses Chronic bilateral low back pain without sciatica Procedures CONSULT TO PHYSICAL THERAPY PHYSICAL THERAPY EVALUATION HIGH COMPLEX 45 MINS THERAPEUTIC EXERCISES RE, EA 15 MIN. Sherri Davalos MD [address] [place] [address] [address] [address] Referral ID Status Reason Start Date Expiration Date Visits Requested Visits Authorized [id number] Authorized Auto-Generat ed Referral 08/14/2022 08/13/2023 20 20 Specialty Diagnoses / Procedures Referred By Contac t Referred To Contact [facility] Diagnoses Acute hip pain, left Procedures CONSULT TO PHYSICAL THERAPY PHYSICAL THERAPY EVALUATION HIGH COMPLEX 45 MINS Sherri Davalos MD [address] [place] [id number] [address] Referral ID Status Reason Start Date Expiration Date Visits Requested Visits Authorized [id number] Authorized Auto-Generat ed Referral 08/14/2023 08/13/2024 20 20 Specialty Diagnoses / Procedures Referred By Contac t Referred To Contact XR IMAGING Diagnoses Acute hip pain, left Procedures XR HIP GENERAL 3V PELV/AP/LAT LEFT RADEX HIP UNILATERAL WITH PELVIS 2-3 VIEWS Sherri Davalos MD [address] [place] [id number] [place] [id number] Referral ID Status Reason Start Date Expiration Date V isits Requested Visits Authorized [id number] Closed Auto-Generate d Referral 10/30/2023 11/28/2024 1 1 Specialty Diagnoses / Procedures Referred By Contac t Referred To Contact Shani Zamora APRN.[address] [address] Referral ID Status Reason Start Date Expiration Date Visits Re quested Visits Authorized [id number] Closed 1 1 Specialty Diagnoses / Procedures Referred By Contac t Referred To Contact Diagnoses Screening for lung cancer Tobacco use disorder Procedures CONSULT LUNG CANCER SCREENING CLINIC Sherri Davalos MD [address] [place] [id number] Referral ID Status Reason Start Date Expiration Date Visits Requested Visits Authorized [id number] Ref Not Required PCP Requested Referral 12/12/2023 03/11/2024 1 1 Specialty Diagnoses / Procedures Referred By Contac t Referred To Contact CT IMAGING Diagnoses Screening for lung cancer Tobacco use disorder Procedures CT LUNG SCREEN WO IVCON COMPUTED TOMOGRAPHY THORAX LW DOSE LNG CA SCR Hilary- Elayne Mondragon, FOX.[employer]ATING MACHINE OPERATOR [address] [place] [phone] [facility] [place] [address] Referral ID Status Reason Start Date Expiration Date Visits Requested Visits Authorized [id number] Pending Review Auto-Generat ed Referral 03/11/2024 04/10/2025 1 1 Specialty Diagnoses / Procedures Referred By Contac t Referred To Contact Nephrology Diagnoses CKD stage 3b, GFR 30-44 ml/min (HCC) Type 2 diabetes mellitus with stage 3a chronic kidney disease, without long-term current use of insulin (HCC) Procedures CONSULT TO NEPHROLOGY OFFICE/OUTPATIENT [facility] 60 MINUTES Sherri Davalos MD [address] [place] [address] Referral ID Status Reason Start Date Expiration Date Visits Requested Visits Authorized [id number] Authorized PCP Requested Referral 03/19/2024 03/19/2025 1 1 Specialty Diagnoses / Procedures Referred By Contac t Referred To Contact Nutrition Diagnoses Stage 3a chronic kidney disease (HCC) Type 2 diabetes mellitus with stage 3a chronic kidney disease, without long-term current use of insulin (HCC) Procedures CONSULT TO NUTRITION THERAPY MEDICAL NUTRITION ASSMT&IVNTJ INDIV EACH 15 ID Sherri Davalos MD [address] [place] [address] Referral ID Status Reason Start Date Expiration Date Visits Requested Visits Authorized [id number] Authorized PCP Requested Referral 03/20/2024 03/20/2025 1 4 Specialty Diagnoses / Procedures Referred By Contac t Referred To Contact Vascular Medicine Diagnoses Abdominal aortic aneurysm (AAA) without rupture, unspecified part (HCC) Procedures CONSULT TO VASCULAR MEDICINE OFFICE/OUTPATIENT NEW [facility] 60 MINUTES Zeynep Schmidt APRN.[employer] MACHINE OPERATOR [address] [place] [address] Referral ID Status Reason Start Date Expiration Date Visits Requested Visits Authorized [id number] Authorized PCP Requested Referral 04/22/2024 04/22/2025 1 1 Specialty Diagnoses / Procedures Referred By Contac t Referred To Contact US IMAGING Diagnoses Abdominal aortic aneurysm (AAA) without rupture, unspecified part (HCC) Procedures US DOPPLER AORTA DUP-SCAN ARTL DMITRI ABDL/PEL/SCROT&/RPR ORGN LMT PodlogarZeynep APRN.ROLL COATING MACHINE OPERATOR [address] [place] [address] [place] [address] Referral ID Status Reason Start Date Expiration Date V isits Requested Visits Authorized [id number] Closed Auto-Generate d Referral 04/19/2024 05/19/2025 1 1 Specialty Diagnoses / Procedures Referred By Contac t Referred To Contact US IMAGING Diagnoses Abdominal aortic aneurysm (AAA) without rupture, unspecified part (HCC) Procedures US ABD AORTA US RETROPERITONEAL REAL TIME W/IMAGE LIMITED PodlogZeynep aly, FOX.[employer]LL COATING MACHINE OPERATOR [address] [place] [address] [place] [address] Referral ID Status Reason Start Date Expiration Date V isits Requested Visits Authorized [id number] Closed Auto-Generate d Referral 04/19/2024 05/19/2025 1 1 Additional Source Comments INFORMATION SOURCE (unrecogn ized section and content) DATE CREATED AUTHOR 02/02/2018 [facility] DATE CREATED AUTHOR AUTHOR'S ORGANIZ ATION 10/10/2024 [facility] DATE CREATED AUTHOR AUTHOR'S ORGANIZ ATION 03/24/2025 [facility] Goals (unrecognized section and content) Goals may be documented in a n alternate sectionGoals may be documented in an alternate sectionGoals may be documented in an alternate section Source Comments (unrecognize d section and content) In the event this informatio n is protected by the Federal Confidentiality of Alcohol and Drug Abuse Patient Records regulations: The Federal rules restrict any use of the information to criminally investigate or prosecute any alcohol or drug abuse patient.[facility] the event this information is protected by the Federal Confidentiality of Alcohol and Drug Abuse Patient Records regulations: The Federal rules restrict any use of the information to criminally investigate or prosecute any alcohol or drug abuse patient.[facility] the event this information is protected by the Federal Confidentiality of Alcohol and Drug Abuse Patient Records regulations: The Federal rules restrict any use of the information to criminally investigate or prosecute any alcohol or drug abuse patient.[facility] the event this information is protected by the Federal Confidentiality of Alcohol and Drug Abuse Patient Records regulations: The Federal rules restrict any use of the information to criminally investigate or prosecute any alcohol or drug abuse patient.[facility] the event this information is protected by the Federal Confidentiality of Alcohol and Drug Abuse Patient Records regulations: The Federal rules restrict any use of the information to criminally investigate or prosecute any alcohol or drug abuse patient.[facility] the event this information is protected by the Federal Confidentiality of Alcohol and Drug Abuse Patient Records regulations: The Federal rules restrict any use of the information to criminally investigate or prosecute any alcohol or drug abuse patient.[facility] the event this information is protected by the Federal Confidentiality of Alcohol and Drug Abuse Patient Records regulations: The Federal rules restrict any use of the information to criminally investigate or prosecute any alcohol or drug abuse patient.[facility] the event this information is protected by the Federal Confidentiality of Alcohol and Drug Abuse Patient Records regulations: The Federal rules restrict any use of the information to criminally investigate or prosecute any alcohol or drug abuse patient.[facility] the event this information is protected by the Federal Confidentiality of Alcohol and Drug Abuse Patient Records regulations: The Federal rules restrict any use of the information to criminally investigate or prosecute any alcohol or drug abuse patient.[facility] the event this information is protected by the Federal Confidentiality of Alcohol and Drug Abuse Patient Records regulations: The Federal rules restrict any use of the information to criminally investigate or prosecute any alcohol or drug abuse patient.[facility] the event this information is protected by the Federal Confidentiality of Alcohol and Drug Abuse Patient Records regulations: The Federal rules restrict any use of the information to criminally investigate or prosecute any alcohol or drug abuse patient.[facility] the event this information is protected by the Federal Confidentiality of Alcohol and Drug Abuse Patient Records regulations: The Federal rules restrict any use of the information to criminally investigate or prosecute any alcohol or drug abuse patient.[facility]In the event this information is protected by the Federal Confidentiality of Alcohol and Drug Abuse Patient Records regulations: The Federal rules restrict any use of the information to criminally investigate or prosecute any alcohol or drug abuse patient.[facility] the event this information is protected by the Federal Confidentiality of Alcohol and Drug Abuse Patient Records regulations: The Federal rules restrict any use of the information to criminally investigate or prosecute any alcohol or drug abuse patient.[facility]In the event this information is protected by the Federal Confidentiality of Alcohol and Drug Abuse Patient Records regulations: The Federal rules restrict any use of the information to criminally investigate or prosecute any alcohol or drug abuse patient.[facility]In the event this information is protected by the Federal Confidentiality of Alcohol and Drug Abuse Patient Records regulations: The Federal rules restrict any use of the information to criminally investigate or prosecute any alcohol or drug abuse patient.[facility]burgIn the event this information is protected by the Federal Confidentiality of Alcohol and Drug Abuse Patient Records regulations: The Federal rules restrict any use of the information to criminally investigate or prosecute any alcohol or drug abuse patient.[facility]burgIn the event this information is protected by the Federal Confidentiality of Alcohol and Drug Abuse Patient Records regulations: The Federal rules restrict any use of the information to criminally investigate or prosecute any alcohol or drug abuse patient.[facility]burgIn the event this information is protected by the Federal Confidentiality of Alcohol and Drug Abuse Patient Records regulations: The Federal rules restrict any use of the information to criminally investigate or prosecute any alcohol or drug abuse patient.[facility]burgIn the event this information is protected by the Federal Confidentiality of Alcohol and Drug Abuse Patient Records regulations: The Federal rules restrict any use of the information to criminally investigate or prosecute any alcohol or drug abuse patient.[facility]burgIn the event this information is protected by the Federal Confidentiality of Alcohol and Drug Abuse Patient Records regulations: The Federal rules restrict any use of the information to criminally investigate or prosecute any alcohol or drug abuse patient.[facility]In the event this information is protected by the Federal Confidentiality of Alcohol and Drug Abuse Patient Records regulations: The Federal rules restrict any use of the information to criminally investigate or prosecute any alcohol or drug abuse patient.[facility]In the event this information is protected by the Federal Confidentiality of Alcohol and Drug Abuse Patient Records regulations: The Federal rules restrict any use of the information to criminally investigate or prosecute any alcohol or drug abuse patient.[facility]In the event this information is protected by the Federal Confidentiality of Alcohol and Drug Abuse Patient Records regulations: The Federal rules restrict any use of the information to criminally investigate or prosecute any alcohol or drug abuse patient.[facility]In the event this information is protected by the Federal Confidentiality of Alcohol and Drug Abuse Patient Records regulations: The Federal rules restrict any use of the information to criminally investigate or prosecute any alcohol or drug abuse patient.[facility]In the event this information is protected by the Federal Confidentiality of Alcohol and Drug Abuse Patient Records regulations: The Federal rules restrict any use of the information to criminally investigate or prosecute any alcohol or drug abuse patient.[facility]In the event this information is protected by the Federal Confidentiality of Alcohol and Drug Abuse Patient Records regulations: The Federal rules restrict any use of the information to criminally investigate or prosecute any alcohol or drug abuse patient.[facility]In the event this information is protected by the Federal Confidentiality of Alcohol and Drug Abuse Patient Records regulations: The Federal rules restrict any use of the information to criminally investigate or prosecute any alcohol or drug abuse patient.[facility]In the event this information is protected by the Federal Confidentiality of Alcohol and Drug Abuse Patient Records regulations: The Federal rules restrict any use of the information to criminally investigate or prosecute any alcohol or drug abuse patient.[facility]In the event this information is protected by the Federal Confidentiality of Alcohol and Drug Abuse Patient Records regulations: The Federal rules restrict any use of the information to criminally investigate or prosecute any alcohol or drug abuse patient.[facility]In the event this information is protected by the Federal Confidentiality of Alcohol and Drug Abuse Patient Records regulations: The Federal rules restrict any use of the information to criminally investigate or prosecute any alcohol or drug abuse patient.[facility]In the event this information is protected by the Federal Confidentiality of Alcohol and Drug Abuse Patient Records regulations: The Federal rules restrict any use of the information to criminally investigate or prosecute any alcohol or drug abuse patient.[facility]In the event this information is protected by the Federal Confidentiality of Alcohol and Drug Abuse Patient Records regulations: The Federal rules restrict any use of the information to criminally investigate or prosecute any alcohol or drug abuse patient.[facility]In the event this information is protected by the Federal Confidentiality of Alcohol and Drug Abuse Patient Records regulations: The Federal rules restrict any use of the information to criminally investigate or prosecute any alcohol or drug abuse patient.[facility]In the event this information is protected by the Federal Confidentiality of Alcohol and Drug Abuse Patient Records regulations: The Federal rules restrict any use of the information to criminally investigate or prosecute any alcohol or drug abuse patient.[facility]In the event this information is protected by the Federal Confidentiality of Alcohol and Drug Abuse Patient Records regulations: The Federal rules restrict any use of the information to criminally investigate or prosecute any alcohol or drug abuse patient.[facility]In the event this information is protected by the Federal Confidentiality of Alcohol and Drug Abuse Patient Records regulations: The Federal rules restrict any use of the information to criminally investigate or prosecute any alcohol or drug abuse patient.[facility]In the event this information is protected by the Federal Confidentiality of Alcohol and Drug Abuse Patient Records regulations: The Federal rules restrict any use of the information to criminally investigate or prosecute any alcohol or drug abuse patient.[facility]In the event this information is protected by the Federal Confidentiality of Alcohol and Drug Abuse Patient Records regulations: The Federal rules restrict any use of the information to criminally investigate or prosecute any alcohol or drug abuse patient.[facility]In the event this information is protected by the Federal Confidentiality of Alcohol and Drug Abuse Patient Records regulations: The Federal rules restrict any use of the information to criminally investigate or prosecute any alcohol or drug abuse patient.[facility]In the event this information is protected by the Federal Confidentiality of Alcohol and Drug Abuse Patient Records regulations: The Federal rules restrict any use of the information to criminally investigate or prosecute any alcohol or drug abuse patient.[facility]burgIn the event this information is protected by the Federal Confidentiality of Alcohol and Drug Abuse Patient Records regulations: The Federal rules restrict any use of the information to criminally investigate or prosecute any alcohol or drug abuse patient.[facility]In the event this information is protected by the Federal Confidentiality of Alcohol and Drug Abuse Patient Records regulations: The Federal rules restrict any use of the information to criminally investigate or prosecute any alcohol or drug abuse patient.[facility]In the event this information is protected by the Federal Confidentiality of Alcohol and Drug Abuse Patient Records regulations: The Federal rules restrict any use of the information to criminally investigate or prosecute any alcohol or drug abuse patient.[facility]In the event this information is protected by the Federal Confidentiality of Alcohol and Drug Abuse Patient Records regulations: The Federal rules restrict any use of the information to criminally investigate or prosecute any alcohol or drug abuse patient.[facility]In the event this information is protected by the Federal Confidentiality of Alcohol and Drug Abuse Patient Records regulations: The Federal rules restrict any use of the information to criminally investigate or prosecute any alcohol or drug abuse patient.[facility]In the event this information is protected by the Federal Confidentiality of Alcohol and Drug Abuse Patient Records regulations: The Federal rules restrict any use of the information to criminally investigate or prosecute any alcohol or drug abuse patient.[facility]In the event this information is protected by the Federal Confidentiality of Alcohol and Drug Abuse Patient Records regulations: The Federal rules restrict any use of the information to criminally investigate or prosecute any alcohol or drug abuse patient.[facility]In the event this information is protected by the Federal Confidentiality of Alcohol and Drug Abuse Patient Records regulations: The Federal rules restrict any use of the information to criminally investigate or prosecute any alcohol or drug abuse patient.[facility]In the event this information is protected by the Federal Confidentiality of Alcohol and Drug Abuse Patient Records regulations: The Federal rules restrict any use of the information to criminally investigate or prosecute any alcohol or drug abuse patient.[facility]In the event this information is protected by the Federal Confidentiality of Alcohol and Drug Abuse Patient Records regulations: The Federal rules restrict any use of the information to criminally investigate or prosecute any alcohol or drug abuse patient.[facility]In the event this information is protected by the Federal Confidentiality of Alcohol and Drug Abuse Patient Records regulations: The Federal rules restrict any use of the information to criminally investigate or prosecute any alcohol or drug abuse patient.[facility]In the event this information is protected by the Federal Confidentiality of Alcohol and Drug Abuse Patient Records regulations: The Federal rules restrict any use of the information to criminally investigate or prosecute any alcohol or drug abuse patient.[facility]In the event this information is protected by the Federal Confidentiality of Alcohol and Drug Abuse Patient Records regulations: The Federal rules restrict any use of the information to criminally investigate or prosecute any alcohol or drug abuse patient.[facility]In the event this information is protected by the Federal Confidentiality of Alcohol and Drug Abuse Patient Records regulations: The Federal rules restrict any use of the information to criminally investigate or prosecute any alcohol or drug abuse patient.[facility]In the event this information is protected by the Federal Confidentiality of Alcohol and Drug Abuse Patient Records regulations: The Federal rules restrict any use of the information to criminally investigate or prosecute any alcohol or drug abuse patient.[facility]In the event this information is protected by the Federal Confidentiality of Alcohol and Drug Abuse Patient Records regulations: The Federal rules restrict any use of the information to criminally investigate or prosecute any alcohol or drug abuse patient.[facility]In the event this information is protected by the Federal Confidentiality of Alcohol and Drug Abuse Patient Records regulations: The Federal rules restrict any use of the information to criminally investigate or prosecute any alcohol or drug abuse patient.[facility]In the event this information is protected by the Federal Confidentiality of Alcohol and Drug Abuse Patient Records regulations: The Federal rules restrict any use of the information to criminally investigate or prosecute any alcohol or drug abuse patient.[facility]In the event this information is protected by the Federal Confidentiality of Alcohol and Drug Abuse Patient Records regulations: The Federal rules restrict any use of the information to criminally investigate or prosecute any alcohol or drug abuse patient.[facility]In the event this information is protected by the Federal Confidentiality of Alcohol and Drug Abuse Patient Records regulations: The Federal rules restrict any use of the information to criminally investigate or prosecute any alcohol or drug abuse patient.[facility]In the event this information is protected by the Federal Confidentiality of Alcohol and Drug Abuse Patient Records regulations: The Federal rules restrict any use of the information to criminally investigate or prosecute any alcohol or drug abuse patient.[facility]In the event this information is protected by the Federal Confidentiality of Alcohol and Drug Abuse Patient Records regulations: The Federal rules restrict any use of the information to criminally investigate or prosecute any alcohol or drug abuse patient.[facility]In the event this information is protected by the Federal Confidentiality of Alcohol and Drug Abuse Patient Records regulations: The Federal rules restrict any use of the information to criminally investigate or prosecute any alcohol or drug abuse patient.[facility]In the event this information is protected by the Federal Confidentiality of Alcohol and Drug Abuse Patient Records regulations: The Federal rules restrict any use of the information to criminally investigate or prosecute any alcohol or drug abuse patient.[facility]In the event this information is protected by the Federal Confidentiality of Alcohol and Drug Abuse Patient Records regulations: The Federal rules restrict any use of the information to criminally investigate or prosecute any alcohol or drug abuse patient.[facility]In the event this information is protected by the Federal Confidentiality of Alcohol and Drug Abuse Patient Records regulations: The Federal rules restrict any use of the information to criminally investigate or prosecute any alcohol or drug abuse patient.[facility]In the event this information is protected by the Federal Confidentiality of Alcohol and Drug Abuse Patient Records regulations: The Federal rules restrict any use of the information to criminally investigate or prosecute any alcohol or drug abuse patient.[facility]In the event this information is protected by the Federal Confidentiality of Alcohol and Drug Abuse Patient Records regulations: The Federal rules restrict any use of the information to criminally investigate or prosecute any alcohol or drug abuse patient.[facility]burgIn the event this information is protected by the Federal Confidentiality of Alcohol and Drug Abuse Patient Records regulations: The Federal rules restrict any use of the information to criminally investigate or prosecute any alcohol or drug abuse patient.[facility]burgIn the event this information is protected by the Federal Confidentiality of Alcohol and Drug Abuse Patient Records regulations: The Federal rules restrict any use of the information to criminally investigate or prosecute any alcohol or drug abuse patient.[facility]burgIn the event this information is protected by the Federal Confidentiality of Alcohol and Drug Abuse Patient Records regulations: The Federal rules restrict any use of the information to criminally investigate or prosecute any alcohol or drug abuse patient.[facility]burgIn the event this information is protected by the Federal Confidentiality of Alcohol and Drug Abuse Patient Records regulations: The Federal rules restrict any use of the information to criminally investigate or prosecute any alcohol or drug abuse patient.[facility]burgIn the event this information is protected by the Federal Confidentiality of Alcohol and Drug Abuse Patient Records regulations: The Federal rules restrict any use of the information to criminally investigate or prosecute any alcohol or drug abuse patient.[facility]burgIn the event this information is protected by the Federal Confidentiality of Alcohol and Drug Abuse Patient Records regulations: The Federal rules restrict any use of the information to criminally investigate or prosecute any alcohol or drug abuse patient.[facility]burgIn the event this information is protected by the Federal Confidentiality of Alcohol and Drug Abuse Patient Records regulations: The Federal rules restrict any use of the information to criminally investigate or prosecute any alcohol or drug abuse patient.[facility]burgIn the event this information is protected by the Federal Confidentiality of Alcohol and Drug Abuse Patient Records regulations: The Federal rules restrict any use of the information to criminally investigate or prosecute any alcohol or drug abuse patient.[facility]burgIn the event this information is protected by the Federal Confidentiality of Alcohol and Drug Abuse Patient Records regulations: The Federal rules restrict any use of the information to criminally investigate or prosecute any alcohol or drug abuse patient.[facility]burgIn the event this information is protected by the Federal Confidentiality of Alcohol and Drug Abuse Patient Records regulations: The Federal rules restrict any use of the information to criminally investigate or prosecute any alcohol or drug abuse patient.[facility]burgIn the event this information is protected by the Federal Confidentiality of Alcohol and Drug Abuse Patient Records regulations: The Federal rules restrict any use of the information to criminally investigate or prosecute any alcohol or drug abuse patient.[facility]burgIn the event this information is protected by the Federal Confidentiality of Alcohol and Drug Abuse Patient Records regulations: The Federal rules restrict any use of the information to criminally investigate or prosecute any alcohol or drug abuse patient.[facility]burgIn the event this information is protected by the Federal Confidentiality of Alcohol and Drug Abuse Patient Records regulations: The Federal rules restrict any use of the information to criminally investigate or prosecute any alcohol or drug abuse patient.[facility]burgIn the event this information is protected by the Federal Confidentiality of Alcohol and Drug Abuse Patient Records regulations: The Federal rules restrict any use of the information to criminally investigate or prosecute any alcohol or drug abuse patient.[facility]burgIn the event this information is protected by the Federal Confidentiality of Alcohol and Drug Abuse Patient Records regulations: The Federal rules restrict any use of the information to criminally investigate or prosecute any alcohol or drug abuse patient.[facility]burgIn the event this information is protected by the Federal Confidentiality of Alcohol and Drug Abuse Patient Records regulations: The Federal rules restrict any use of the information to criminally investigate or prosecute any alcohol or drug abuse patient.[facility]burgIn the event this information is protected by the Federal Confidentiality of Alcohol and Drug Abuse Patient Records regulations: The Federal rules restrict any use of the information to criminally investigate or prosecute any alcohol or drug abuse patient.[facility]burgIn the event this information is protected by the Federal Confidentiality of Alcohol and Drug Abuse Patient Records regulations: The Federal rules restrict any use of the information to criminally investigate or prosecute any alcohol or drug abuse patient.[facility]burgIn the event this information is protected by the Federal Confidentiality of Alcohol and Drug Abuse Patient Records regulations: The Federal rules restrict any use of the information to criminally investigate or prosecute any alcohol or drug abuse patient.[facility]burgIn the event this information is protected by the Federal Confidentiality of Alcohol and Drug Abuse Patient Records regulations: The Federal rules restrict any use of the information to criminally investigate or prosecute any alcohol or drug abuse patient.[facility]burgIn the event this information is protected by the Federal Confidentiality of Alcohol and Drug Abuse Patient Records regulations: The Federal rules restrict any use of the information to criminally investigate or prosecute any alcohol or drug abuse patient.[facility]burgIn the event this information is protected by the Federal Confidentiality of Alcohol and Drug Abuse Patient Records regulations: The Federal rules restrict any use of the information to criminally investigate or prosecute any alcohol or drug abuse patient.[facility]burgIn the event this information is protected by the Federal Confidentiality of Alcohol and Drug Abuse Patient Records regulations: The Federal rules restrict any use of the information to criminally investigate or prosecute any alcohol or drug abuse patient.[facility]burgIn the event this information is protected by the Federal Confidentiality of Alcohol and Drug Abuse Patient Records regulations: The Federal rules restrict any use of the information to criminally investigate or prosecute any alcohol or drug abuse patient.[facility]burgIn the event this information is protected by the Federal Confidentiality of Alcohol and Drug Abuse Patient Records regulations: The Federal rules restrict any use of the information to criminally investigate or prosecute any alcohol or drug abuse patient.[facility]burgIn the event this information is protected by the Federal Confidentiality of Alcohol and Drug Abuse Patient Records regulations: The Federal rules restrict any use of the information to criminally investigate or prosecute any alcohol or drug abuse patient.[facility]burgIn the event this information is protected by the Federal Confidentiality of Alcohol and Drug Abuse Patient Records regulations: The Federal rules restrict any use of the information to criminally investigate or prosecute any alcohol or drug abuse patient.[facility]burgIn the event this information is protected by the Federal Confidentiality of Alcohol and Drug Abuse Patient Records regulations: The Federal rules restrict any use of the information to criminally investigate or prosecute any alcohol or drug abuse patient.[facility]burgIn the event this information is protected by the Federal Confidentiality of Alcohol and Drug Abuse Patient Records regulations: The Federal rules restrict any use of the information to criminally investigate or prosecute any alcohol or drug abuse patient.[facility]burgIn the event this information is protected by the Federal Confidentiality of Alcohol and Drug Abuse Patient Records regulations: The Federal rules restrict any use of the information to criminally investigate or prosecute any alcohol or drug abuse patient.[facility]burgIn the event this information is protected by the Federal Confidentiality of Alcohol and Drug Abuse Patient Records regulations: The Federal rules restrict any use of the information to criminally investigate or prosecute any alcohol or drug abuse patient.[facility]burgIn the event this information is protected by the Federal Confidentiality of Alcohol and Drug Abuse Patient Records regulations: The Federal rules restrict any use of the information to criminally investigate or prosecute any alcohol or drug abuse patient.[facility]burgIn the event this information is protected by the Federal Confidentiality of Alcohol and Drug Abuse Patient Records regulations: The Federal rules restrict any use of the information to criminally investigate or prosecute any alcohol or drug abuse patient.[facility]burgIn the event this information is protected by the Federal Confidentiality of Alcohol and Drug Abuse Patient Records regulations: The Federal rules restrict any use of the information to criminally investigate or prosecute any alcohol or drug abuse patient.[facility]burgIn the event this information is protected by the Federal Confidentiality of Alcohol and Drug Abuse Patient Records regulations: The Federal rules restrict any use of the information to criminally investigate or prosecute any alcohol or drug abuse patient.[facility]burgIn the event this information is protected by the Federal Confidentiality of Alcohol and Drug Abuse Patient Records regulations: The Federal rules restrict any use of the information to criminally investigate or prosecute any alcohol or drug abuse patient.[facility]burgIn the event this information is protected by the Federal Confidentiality of Alcohol and Drug Abuse Patient Records regulations: The Federal rules restrict any use of the information to criminally investigate or prosecute any alcohol or drug abuse patient.[facility]burgIn the event this information is protected by the Federal Confidentiality of Alcohol and Drug Abuse Patient Records regulations: The Federal rules restrict any use of the information to criminally investigate or prosecute any alcohol or drug abuse patient.[facility]burgIn the event this information is protected by the Federal Confidentiality of Alcohol and Drug Abuse Patient Records regulations: The Federal rules restrict any use of the information to criminally investigate or prosecute any alcohol or drug abuse patient.[facility]burgIn the event this information is protected by the Federal Confidentiality of Alcohol and Drug Abuse Patient Records regulations: The Federal rules restrict any use of the information to criminally investigate or prosecute any alcohol or drug abuse patient.[facility]burgIn the event this information is protected by the Federal Confidentiality of Alcohol and Drug Abuse Patient Records regulations: The Federal rules restrict any use of the information to criminally investigate or prosecute any alcohol or drug abuse patient.[facility]burgIn the event this information is protected by the Federal Confidentiality of Alcohol and Drug Abuse Patient Records regulations: The Federal rules restrict any use of the information to criminally investigate or prosecute any alcohol or drug abuse patient.[facility]In the event this information is protected by the Federal Confidentiality of Alcohol and Drug Abuse Patient Records regulations: The Federal rules restrict any use of the information to criminally investigate or prosecute any alcohol or drug abuse patient.[facility]burgIn the event this information is protected by the Federal Confidentiality of Alcohol and Drug Abuse Patient Records regulations: The Federal rules restrict any use of the information to criminally investigate or prosecute any alcohol or drug abuse patient.[facility]burgIn the event this information is protected by the Federal Confidentiality of Alcohol and Drug Abuse Patient Records regulations: The Federal rules restrict any use of the information to criminally investigate or prosecute any alcohol or drug abuse patient.[facility]burgIn the event this information is protected by the Federal Confidentiality of Alcohol and Drug Abuse Patient Records regulations: The Federal rules restrict any use of the information to criminally investigate or prosecute any alcohol or drug abuse patient.[facility]burgIn the event this information is protected by the Federal Confidentiality of Alcohol and Drug Abuse Patient Records regulations: The Federal rules restrict any use of the information to criminally investigate or prosecute any alcohol or drug abuse patient.[facility]burgIn the event this information is protected by the Federal Confidentiality of Alcohol and Drug Abuse Patient Records regulations: The Federal rules restrict any use of the information to criminally investigate or prosecute any alcohol or drug abuse patient.[facility]In the event this information is protected by the Federal Confidentiality of Alcohol and Drug Abuse Patient Records regulations: The Federal rules restrict any use of the information to criminally investigate or prosecute any alcohol or drug abuse patient.[facility]burgIn the event this information is protected by the Federal Confidentiality of Alcohol and Drug Abuse Patient Records regulations: The Federal rules restrict any use of the information to criminally investigate or prosecute any alcohol or drug abuse patient.[facility] Reason for Visit (unrecogniz ed section and content) Reason Comments Physical Therapy Specialty Diagnoses / Procedures Referred By Contac t Referred To Contact [facility] Diagnoses Acute hip pain, left Procedures CONSULT TO PHYSICAL THERAPY PHYSICAL THERAPY EVALUATION HIGH COMPLEX 45 MINS Sherri Davalos MD [address] [place] [address] [facility] [address] [place] [place] [address] Referral ID Status Reason Start Date Expiration Date Visits Requested Visits Authorized [id number] Authorized Auto-Generat ed Referral 08/14/2023 08/13/2024 20 20 Reason Comments PT Discharge Reason Comments PT Discharge Physical Therapy Specialty Diagnoses / Procedures Referred By Contac t Referred To Contact [facility] Diagnoses Chronic bilateral low back pain without sciatica Procedures CONSULT TO PHYSICAL THERAPY PHYSICAL THERAPY EVALUATION HIGH COMPLEX 45 MINS THERAPEUTIC EXERCISES RE, EA 15 MIN. Sherri Davalos MD [address] [place] [address] [facility] [address] [place] [address] Referral ID Status Reason Start Date Expiration Date Visits Requested Visits Authorized [id number] Authorized Auto-Generat ed Referral 08/14/2022 08/13/2023 20 20 Reason Comments Tremor Specialty Diagnoses / Procedures Referred By Contac t Referred To Contact Neurology Diagnoses Parkinsonism, unspecified Parkinsonism type (HCC) Tremor Procedures CONSULT TO NEUROLOGY OFFICE/OUTPATIENT [facility] 60-74 MINUTES Sherri Davalos MD [address] [place] [address] Referral ID Status Reason Start Date Expiration Date Visits Requested Visits Authorized [id number] Pending Review PCP Requested Referral 10/19/2021 10/19/2022 1 1 Reason Onset Date Comments Refill Request 01/28/2022 Reason Onset Date Comments Refill Request 02/17/2022 Reason Onset Date Comments Population Health Navigation Outreach 02/23/2022 [facility] Care Gaps Reason Comments Patient Question Appointment Reason Onset Date Comments community monitoring outreach 04/28/2022 en rollment Reason Onset Date Comments Refill Request 05/19/2022 Reason Comments Results Reason Comments Refill Request Reason Onset Date Comments community monitoring outreach 06/14/2022 Te lephonic questionnaire Reason Onset Date Comments community monitoring outreach 07/11/2022 Te lephonic questionnaire Reason Comments Orders Reason Comments Physical Reason Onset Date Comments community cominitoring outreach 08/09/2022 Telephonic questionnaire Reason Onset Date Comments community monitoring outreach 08/10/2022 Te lephonic questionnaire Reason Onset Date Comments community monitoring outreach 09/05/2022 Te lephonic questionnaire Reason Onset Date Comments Refill Request 09/07/2022 Reason Comments Depression Follow up Reason Onset Date Comments community monitoring outreach 10/03/2022 Te lephonic questionnaire Reason Comments Sore Throat Sinus pressure, ear pain, upset stomach x3 days Reason Onset Date Comments community monitoring outreach 10/31/2022 CD M outreach Reason Comments Reason Onset Date Comments Population Health Navigation Outreach 11/24/2022 [facility] care gap Reason Onset Date Comments community monitoring outreach 11/28/2022 CD M outreach Reason Onset Date Comments community monitoring outreach 12/26/2022 CD M outreach Reason Comments Orders [facility] - Med Request Reason Comments Follow Up 6 month Reason Comments ER F/U Reason Onset Date Comments Community Monitoring Outreach 02/21/2023 CD M Telephonic Outreach - Routine Reason Onset Date Comments Community Monitoring Outreach 02/22/2023 CD M Telephonic Outreach - Routine Reason Comments Follow Up Arthritis and med fo llow up on nail fungus tx Reason Onset Date Comments Community Monitoring Outreach 03/23/2023 CD M Telephonic Outreach - Routine Reason Onset Date Comments Community Monitoring Outreach 03/24/2023 CD M ED Follow Up /// CDM Telephonic Outreach - Routine Reason Onset Date Comments Refill Request 03/29/2023 Reason Onset Date Comments Community Monitoring Outreach 04/19/2023 CD M Telephonic Outreach - Routine Reason Comments Follow Up Tremor Reason Comments F/U 3 Month Reason Onset Date Comments Community Monitoring Outreach 07/13/2023 CD M Telephonic Outreach - Routine Reason Comments Insurance Questions Reason Onset Date Comments Refill Request 09/14/2023 Reason Onset Date Comments Community Monitoring Outreach 10/04/2023 CD M Telephonic Outreach - Routine Reason Onset Date Comments Escalation of Care 10/04/2023 Reason Onset Date Comments Community Monitoring Outreach 10/05/2023 CD M Telephonic Outreach - Escalation Reason Comments Medication [facility] Reason Comments Polypharmacy Side effects Reason Comments Patient Question Reason Comments Left Hip Pain Injured hip approx 2 weeks ago Reason Comments Insurance Authorization Reason Onset Date Comments [facility] 11/01/2023 [facility] Outreach Call Reason Comments PT Eval Reason Onset Date Comments Refill Request 11/23/2023 Reason Onset Date Comments [facility] 11/29/2023 [facility] Outreach Call Reason Comments Medicare Wellness Exam Reason Onset Date Comments [facility] 12/27/2023 [facility] Outreach Call Reason Onset Date Comments [facility] 01/22/2024 [facility] Outreach Call Reason Onset Date Comments [facility] 02/21/2024 [facility] Outreach Call Reason Onset Date Comments Refill Request 02/24/2024 Reason Onset Date Comments Refill Request 03/06/2024 Reason Comments Appointment To discuss lab resul ts and her routine 3 mos f/u Reason Comments New Patient LCS Specialty Diagnoses / Procedures Referred By Contac t Referred To Contact Diagnoses Screening for lung cancer Tobacco use disorder Procedures CONSULT LUNG CANCER SCREENING CLINIC Sherri Davalos MD [address] [place] [address] Referral ID Status Reason Start Date Expiration Date Visits Requested Visits Authorized [id number] Ref Not Required PCP Requested Referral 12/12/2023 03/11/2024 1 1 Reason Onset Date Comments Refill Request 03/15/2024 Reason Comments Follow Up 3 month Reason Comments Results Reason Onset Date Comments [facility] 03/20/2024 [employer] Outreach Call Reason Onset Date Comments Refill Request 04/04/2024 Reason Onset Date Comments Refill Request 04/10/2024 Reason Onset Date Comments [facility] 04/18/2024 [employer] Outreach Call Reason Comments Fall 03/31 is having left hip pain Reason Onset Date Comments [facility] 04/23/2024 [employer] Outreach Call Reason Comments Radiology US Specialty Diagnoses / Procedures Referred By Contac t Referred To Contact US IMAGING Diagnoses Abdominal aortic aneurysm (AAA) without rupture, unspecified part (HCC) Procedures US ABD AORTA US RETROPERITONEAL REAL TIME W/IMAGE LIMITED PodlogarZeynep APRN.CNP [address] [place] [address] [place] [id number] Referral ID Status Reason Start Date Expiration Date V isits Requested Visits Authorized [id number] Closed Auto-Generate d Referral 04/19/2024 05/19/2025 1 1 Reason Onset Date Comments [facility] 04/24/2024 [employer] Outreach Call Reason Comments Consult CKD stage 3b, GFR 30 -44 ml/min (HCC) [N18.32] Type 2 diabetes mellitus with stage 3a chronic kidney disease, without long-term... Specialty Diagnoses / Procedures Referred By Umairac t Referred To Contact Nephrology Diagnoses CKD stage 3b, GFR 30-44 ml/min (HCC) Type 2 diabetes mellitus with stage 3a chronic kidney disease, without long-term current use of insulin (HCC) Procedures CONSULT TO NEPHROLOGY OFFICE/OUTPATIENT NEW HIGH MDM 60 MINUTES Sherri Davalos MD [address] [place] [address] Referral ID Status Reason Start Date Expiration Date V isits Requested Visits Authorized [id number] Closed PCP Requested Referral 03/19/2024 03/19/2025 1 1 Reason Comments New Patient AAA Specialty Diagnoses / Procedures Referred By Contac t Referred To Contact Vascular Medicine Diagnoses Abdominal aortic aneurysm (AAA) without rupture, unspecified part (HCC) Procedures CONSULT TO VASCULAR MEDICINE OFFICE/OUTPATIENT NEW HIGH MDM 60 MINUTES PodlogarZeynep APRN.CNP [address] [place] [address] Referral ID Status Reason Start Date Expiration Date V isits Requested Visits Authorized [id number] Closed PCP Requested Referral 04/22/2024 04/22/2025 1 1 Reason Onset Date Comments [facility] 05/22/2024 [facility] Outreach Call Reason Comments yearly follow up Reason Onset Date Comments CDM 06/20/2024 [facility] Outreach Call Reason Onset Date Comments CDM 07/18/2024 [facility] Outreach Call Reason Onset Date Comments Refill Request 07/29/2024 Reason Comments Appointment Reason Onset Date Comments Refill Request 08/27/2024 Reason Onset Date Comments Refill Request 09/09/2024 Reason Onset Date Comments Refill Request 09/10/2024 Reason Comments 6 month follow up Reason Onset Date Comments Refill Request 10/06/2024 Reason Onset Date Comments Refill Request 10/08/2024 Reason Onset Date Comments Refill Request 02/24/2025 Reason Onset Date Comments Refill Request 03/06/2025 Reason Onset Date Comments Refill Request 03/07/2025 Reason Onset Date Comments Refill Request 03/10/2025 Reason Onset Date Comments Refill Request 04/01/2025 Care Teams (unrecognized sec tion and content) Hydraulic Spinner Relationship Specialty Start Date End Date Sherri Davalos MD [address], [place] [id number] PCP - General Family Practice 02/16/17 Hydraulic Spinner Relationship Specialty Start Date End Date Sherri Davalos MD [address] [facility] [place] [place] [address] PCP - General Family Practice 02/16/17 Hydraulic Spinner Relationship Specialty Start Date End Date Sherri Davalos MD [address] [facility] [place] [place] [address] PCP - General Family Practice 02/16/17 Hydraulic Spinner Relationship Specialty Start Date End Date Sherri Davalos MD [address] [facility] [place] [place] [address] PCP - General Family Practice 02/16/17 Hydraulic Spinner Relationship Specialty Start Date End Date Sherri Davalos MD [address] [facility] [place] [place] [address] PCP - General Family Practice 02/16/17 Monika Ley, RN [address] [place] [address] Glass Etcher Helper 04/28/22 Hydraulic Spinner Relationship Specialty Start Date End Date Sherri Davalos MD [address] [facility] [place] [place] [address] PCP - General Family Medicine 02/16/17 Monika Ley, RN [address] [place] [address] Glass Etcher Helper 04/28/22 Hydraulic Spinner Relationship Specialty Start Date End Date Sherri Davalos MD [address] [facility] [place] [place] [address] PCP - General Family Medicine 02/16/17 Monika Ley, RN [address] [place] [address] Glass Etcher Helper 04/28/22 Hydraulic Spinner Relationship Specialty Start Date End Date Sherri Davalos MD [address] [facility] [place] [place] [address] PCP - General Family Medicine 02/16/17 Monika Ley, RN [address] [place] [address] Glass Etcher Helper 04/28/22 Hydraulic Spinner Relationship Specialty Start Date End Date Sherri Davalos MD [address] [facility] [place] [place] [address] PCP - General Family Medicine 02/16/17 Monika Ley, RN [address] [place] [address] Glass Etcher Helper 04/28/22 Hydraulic Spinner Relationship Specialty Start Date End Date Sherri Davalos MD [address] [facility] [place] [place] [address] PCP - General Family Medicine 02/16/17 Monika Ley, RN [address] [place] [address] Glass Etcher Helper 04/28/22 Hydraulic Spinner Relationship Specialty Start Date End Date Sherri Davalos MD [address] [facility] [place] [place] [address] PCP - General Family Medicine 02/16/17 Monika Ley, RN [address] [place] [address] Glass Etcher Helper 04/28/22 Hydraulic Spinner Relationship Specialty Start Date End Date Sherri Davalos MD [address] [facility] [place] [place] [address] PCP - General Family Medicine 02/16/17 Monika Ley, RN [address] [place] [address] Glass Etcher Helper 04/28/22 Hydraulic Spinner Relationship Specialty Start Date End Date Sherri Davalos MD [address] [facility] [place] [place] [address] PCP - General Family Medicine 02/16/17 Monika Ley, RN [address] [facility] [place] [address] Glass Etcher Helper 04/28/22 Hydraulic Spinner Relationship Specialty Start Date End Date Sherri Davalos MD [address] [facility] [place] [address] PCP - General Family Medicine 02/16/17 Monika Ley, RN [address] [place] [address] Glass Etcher Helper 04/28/22 Hydraulic Spinner Relationship Specialty Start Date End Date Sherri Davalos MD [address] [facility] [place] [address] PCP - General Family Medicine 02/16/17 Monika Ley, RN [address] [place] [address] Glass Etcher Helper 04/28/22 Hydraulic Spinner Relationship Specialty Start Date End Date Sherri Davalos MD [address] [facility] [place] [address] PCP - General Family Medicine 02/16/17 Monika Ley, RN [address] [place] [address] Glass Etcher Helper 04/28/22 Hydraulic Spinner Relationship Specialty Start Date End Date Sherri Davalos MD [address] [facility] [place] [address] PCP - General Family Medicine 02/16/17 Monika Ley, RN [address] [place] [address] Glass Etcher Helper 04/28/22 Hydraulic Spinner Relationship Specialty Start Date End Date Sherri Davalos MD [address] [facility] [place] [address] PCP - General Family Medicine 02/16/17 Monika Ley, RN [address] [place] [address] Glass Etcher Helper 04/28/22 Hydraulic Spinner Relationship Specialty Start Date End Date Sherri Davalos MD [address] [facility] [place] [address] PCP - General Family Medicine 02/16/17 Bernice Orozco, RN [address] [place] [address] Glass Etcher Helper Internal Medicine 01/18/23 Hydraulic Spinner Relationship Specialty Start Date End Date Sherri Davalos MD [address] [facility] [place] [place] [address] PCP - General Family Medicine 02/16/17 Bernice Orozco, RN [address] [place] [address] Glass Etcher Helper Internal Medicine 01/18/23 Hydraulic Spinner Relationship Specialty Start Date End Date Sherri Davalos MD [address] [facility] [place] [address] PCP - General Family Medicine 02/16/17 Bernice Orozco, JAZMYNE [address] [place] [address] Glass Etcher Helper Internal Medicine 01/18/23 Team Status: Active Member Role Status Dates Dr. Osito Davalos MD Family Provider Active Dr. Osito Davalos MD Primary Care Provider Acti ve Team Status: Inactive Member Role Status Dates Dr. Osito Davalos MD Primary Care Provider Acti ve Dr. Jorge Riggs , Emergency Provider Active Hydraulic Spinner Relationship Specialty Start Date End Date Sherri Davalos MD [address] [facility] [place] [address] PCP - General Family Medicine 02/16/17 Bernice Orozco, RN [address] [place] [address] Glass Etcher Helper Internal Medicine 01/18/23 Hydraulic Spinner Relationship Specialty Start Date End Date Sherri Davalos MD [address] [facility] [place] [place] [address] PCP - General Family Medicine 02/16/17 Bernice Orozco, RN [address] [place] [address] Glass Etcher Helper Internal Medicine 01/18/23 Hydraulic Spinner Relationship Specialty Start Date End Date Sherri Davalos MD [address] [facility] [place] [address] PCP - General Family Medicine 02/16/17 Bernice Orozco, JAZMYNE [address] [place] [address] Glass Etcher Helper Internal Medicine 01/18/23 Hydraulic Spinner Relationship Specialty Start Date End Date Sherri Davalos MD [address] [facility] [place] [address] PCP - General Family Medicine 02/16/17 Bernice Orozco, JAZMYNE [address] [place] [address] Glass Etcher Helper Internal Medicine 01/18/23 Hydraulic Spinner Relationship Specialty Start Date End Date Sherri Davalos MD [address] [facility] [place] [address] PCP - General Family Medicine 02/16/17 Bernice Orozco, JAZMYNE [address] [place] [address] Glass Etcher Helper Internal Medicine 01/18/23 Hydraulic Spinner Relationship Specialty Start Date End Date Sherri Davalos MD [address] [facility] [place] [address] PCP - General Family Medicine 02/16/17 Bernice Orozco, JAZMYNE [address] [place] [address] Glass Etcher Helper Internal Medicine 01/18/23 Team Status: Inactive Member Role Status Dates Dr. Osito Davalos MD Primary Care Provider Sean ve Dr. Jorge Riggs DO Attending Provider, Timbo taylor Active Team Status: Inactive Member Role Status Dates Dr. Osito Davalos MD Primary Care Provider Acti ve Dr. Jose Jackson MD Emergency Provider Active Hydraulic Spinner Relationship Specialty Start Date End Date Sherri Davalos MD [address] [facility] [place] [address] PCP - General Family Medicine 02/16/17 Bernice Orozco, RN [address] [place] [address] Glass Etcher Helper Internal Medicine 01/18/23 Hydraulic Spinner Relationship Specialty Start Date End Date Sherri Davalos MD [address] [facility] [place] [address] PCP - General Family Medicine 02/16/17 Bernice Orozco, RN [address] [place] [address] Glass Etcher Helper Internal Medicine 01/18/23 Hydraulic Spinner Relationship Specialty Start Date End Date Sherri Davalos MD [address] [facility] [place] [address] PCP - General Family Medicine 02/16/17 Bernice Orozco, RN [address] [place] [address] Glass Etcher Helper Internal Medicine 01/18/23 Hydraulic Spinner Relationship Specialty Start Date End Date Sherri Davalos MD [address] [facility] [place] [address] PCP - General Family Medicine 02/16/17 Bernice Orozco, RN [address] [place] [address] Glass Etcher Helper Internal Medicine 01/18/23 Hydraulic Spinner Relationship Specialty Start Date End Date Sherri Davalos MD [address] [facility] [place] [address] PCP - General Family Medicine 02/16/17 eBrnice Orozco, RN [address] [place] [address] Glass Etcher Helper Internal Medicine 01/18/23 Hydraulic Spinner Relationship Specialty Start Date End Date Sherri Davalos MD [address] [facility] [place] [address] PCP - General Family Medicine 02/16/17 Bernice Orozco, JAZMYNE [address] [place] [address] Glass Etcher Helper Internal Medicine 01/18/23 Hydraulic Spinner Relationship Specialty Start Date End Date Sherri Davalos MD [address] [place] [address] PCP - General Family Medicine 02/16/17 Bernice Orozco, JAZMYNE [address] [place] [address] Glass Etcher Helper Internal Medicine 01/18/23 Hydraulic Spinner Relationship Specialty Start Date End Date Sherri Davalos MD [address] [place] [address] PCP - General Family Medicine 02/16/17 Bernice Orozco, JAZMYNE [address] [place] [address] Glass Etcher Helper Internal Medicine 01/18/23 Hydraulic Spinner Relationship Specialty Start Date End Date Sherri Davalos MD [address] [place] [address] PCP - General Family Medicine 02/16/17 Bernice Orozco, JAZMYNE [address] [place] [address] Glass Etcher Helper Internal Medicine 01/18/23 [facility] [address] [place] [address] [place] [address] Cardiology 10/13/23 Hydraulic Spinner Relationship Specialty Start Date End Date Sherri Davalos MD [address] [place] [address] PCP - General Family Medicine 02/16/17 Group, [facility] [address] [place] [address] Cardiology 10/13/23 Brooke Rao, workgroup leaderGlass Etcher Helper 10/22/23 Hydraulic Spinner Relationship Specialty Start Date End Date Sherri Davalos MD [address] [place] [place] [address] PCP - General Family Medicine 02/16/17 Group, [facility] [address] [place] [address] Cardiology 10/13/23 Brooke Rao RN Glass Etcher Helper 10/22/23 Hydraulic Spinner Relationship Specialty Start Date End Date Sherri Davalos MD [address] [place] [place] [address] PCP - General Family Medicine 02/16/17 Group, [facility] [address] [place] [address] Cardiology 10/13/23 Brooke Rao RN Glass Etcher Helper 10/22/23 Hydraulic Spinner Relationship Specialty Start Date End Date Sherri Davalos MD [address] [place] [address] PCP - General Family Medicine 02/16/17 Group, [facility] [address] [place] [address] Cardiology 10/13/23 Brooke Rao, workgroup leaderGlass Etcher Helper 10/22/23 Hydraulic Spinner Relationship Specialty Start Date End Date Sherri Davalos MD [address] [facility] [place] [address] PCP - General Family Medicine 02/16/17 Group, [facility] [address] [place] [address] Cardiology 10/13/23 Brooke Rao, workgroup leaderGlass Etcher Helper 10/22/23 Hydraulic Spinner Relationship Specialty Start Date End Date Sherri Davalos MD [address] [facility] [place] [place] [address] PCP - General Family Medicine 02/16/17 Group, [facility] [address] [place] [address] Cardiology 10/13/23 Brooke Rao RN Glass Etcher Helper 10/22/23 Hydraulic Spinner Relationship Specialty Start Date End Date Sherri Davalos MD [address] [place] [place] [address] PCP - General Family Medicine 02/16/17 Group, [facility] [address] [place] [address] Cardiology 10/13/23 Brooke Rao RN Glass Etcher Helper 10/22/23 Hydraulic Spinner Relationship Specialty Start Date End Date Sherri Davalos MD [address] [facility] [place] [address] PCP - General Family Medicine 02/16/17 Group, [facility] [address] [place] [address] Cardiology 10/13/23 Brooke Rao RN Glass Etcher Helper 10/22/23 Hydraulic Spinner Relationship Specialty Start Date End Date Sherri Davalos MD [address] [facility] [place] [place] [address] PCP - General Family Medicine 02/16/17 Group, [facility] [address] [place] [address] Cardiology 10/13/23 Brooke Rao, workgroup leaderGlass Etcher Helper 10/22/23 Hydraulic Spinner Relationship Specialty Start Date End Date Sherri Davalos MD [address] [place] [address] PCP - General Family Medicine 02/16/17 Group, [facility] [address] [place] [address] Cardiology 10/13/23 Brooke Rao RN Glass Etcher Helper 10/22/23 Hydraulic Spinner Relationship Specialty Start Date End Date Sherri Davalos MD [address] [place] [address] PCP - General Family Medicine 02/16/17 Group, [facility] [address] [place] [address] Cardiology 10/13/23 Brooke Rao, workgroup leaderGlass Etcher Helper 10/22/23 Hydraulic Spinner Relationship Specialty Start Date End Date Sherri Davalos MD [address] [facility] [place] [address] PCP - General Family Medicine 02/16/17 Group, [facility] [address] [place] [address] Cardiology 10/13/23 Brooke Rao, workgroup leaderGlass Etcher Helper 10/22/23 Hydraulic Spinner Relationship Specialty Start Date End Date Sherri Davalos MD [address] [facility] [place] [place] [address] PCP - General Family Medicine 02/16/17 Group, [facility] [address] [place] [address] Cardiology 10/13/23 Brooke Rao, workgroup leaderGlass Etcher Helper 10/22/23 Hydraulic Spinner Relationship Specialty Start Date End Date Sherri Davalos MD [address] [facility] [place] [address] PCP - General Family Medicine 02/16/17 Group, [facility] [address] [place] [address] Cardiology 10/13/23 Brooke Rao, workgroup leaderGlass Etcher Helper 10/22/23 Hydraulic Spinner Relationship Specialty Start Date End Date Sherri Davalos MD [address] [facility] [place] [address] PCP - General Family Medicine 02/16/17 Group, [facility] [address] [place] [address] Cardiology 10/13/23 Brooke Rao, workgroup leaderGlass Etcher Helper 10/22/23 Hydraulic Spinner Relationship Specialty Start Date End Date Sherri Davalos MD [address] [facility] [place] [address] PCP - General Family Medicine 02/16/17 Group, [facility] [address] [place] [address] Cardiology 10/13/23 Brooke Rao, workgroup leaderGlass Etcher Helper 10/22/23 Hydraulic Spinner Relationship Specialty Start Date End Date Sherri Davalos MD [address] [place] [address] PCP - General Family Medicine 02/16/17 Group, [facility] [address] [place] [address] Cardiology 10/13/23 Brooke Rao, workgroup leaderGlass Etcher Helper 10/22/23 Hydraulic Spinner Relationship Specialty Start Date End Date Sherri Davalos MD [address] [place] [address] PCP - General Family Medicine 02/16/17 Group, [facility] [address] [place] [address] Cardiology 10/13/23 Brooke Rao, workgroup leaderGlass Etcher Helper 10/22/23 Hydraulic Spinner Relationship Specialty Start Date End Date Sherri Davalos MD [address] [place] [address] PCP - General Family Medicine 02/16/17 Group, [facility] [address] [place] [address] Cardiology 10/13/23 Brooke Rao, workgroup leaderGlass Etcher Helper 10/22/23 Hydraulic Spinner Relationship Specialty Start Date End Date Sherri Davalos MD [address] [place] [address] PCP - General Family Medicine 02/16/17 Group, [facility] [address] [place] [address] Cardiology 10/13/23 Brooke Rao, workgroup leaderGlass Etcher Helper 10/22/23 Hydraulic Spinner Relationship Specialty Start Date End Date Sherri Davalos MD [address] [place] [address] PCP - General Family Medicine 02/16/17 Group, [facility] [address] [facility] [place] [address] Cardiology 10/13/23 Brooke Rao, workgroup leaderGlass Etcher Helper 10/22/23 Hydraulic Spinner Relationship Specialty Start Date End Date Sherri Davalos MD [address] [facility] [place] [place] [address] PCP - General Family Medicine 02/16/17 Group, [facility] [address] [facility] [place] [address] Cardiology 10/13/23 Brooke Rao, workgroup leaderGlass Etcher Helper 10/22/23 Hydraulic Spinner Relationship Specialty Start Date End Date Sherri Davalos MD [address] [facility] [place] [address] PCP - General Family Medicine 02/16/17 Group, [facility] [address] [facility] [place] [address] Cardiology 10/13/23 Brooke Rao, workgroup leaderGlass Etcher Helper 10/22/23 Hydraulic Spinner Relationship Specialty Start Date End Date hSerri Davalos MD [address] [facility] [place] [address] PCP - General Family Medicine 02/16/17 Group, [facility] [address] [facility] [place] [address] Cardiology 10/13/23 Brooke Rao, workgroup leaderGlass Etcher Helper 10/22/23 Hydraulic Spinner Relationship Specialty Start Date End Date Sherri Davalos MD [address] [facility] [place] [address] PCP - General Family Medicine 02/16/17 Group, [facility] [address] [place] [address] Cardiology 10/13/23 Brooke Rao, workgroup leaderGlass Etcher Helper 10/22/23 Hydraulic Spinner Relationship Specialty Start Date End Date Sherri Davalos MD [address] [facility] [place] [address] PCP - General Family Medicine 02/16/17 Group, [facility] [address] [place] [address] Cardiology 10/13/23 Brooke Rao, workgroup leaderGlass Etcher Helper 10/22/23 Podlogar, Zeynep, CONTRACTOR FIELD HAULING.ROLL COATING MACHINE OPERATOR [address] [place] [address] Geospatial TechnicianUnitypoint [facility] Medicine 07/20/24 Hydraulic Spinner Relationship Specialty Start Date End Date Sherri Davalos MD [address] [place] [address] PCP - General Family Medicine 02/16/17 Group, [facility] [address] [place] [address] Cardiology 10/13/23 Brooke Rao, workgroup leaderGlass Etcher Helper 10/22/23 Podlogar, Zeynep, CONTRACTOR FIELD HAULING.ROLL COATING MACHINE OPERATOR [address] [place] [address] [facility] 07/20/24 Hydraulic Spinner Relationship Specialty Start Date End Date Sherri Davalos MD [address] [place] [address] PCP - General Family Medicine 02/16/17 Group, [facility] [address] [place] [address] Cardiology 10/13/23 Brooke Rao, workgroup leaderGlass Etcher Helper 10/22/23 Podlogar, Zeynep, CONTRACTOR FIELD HAULING.ROLL COATING MACHINE OPERATOR [address] [place] [address] [facility] 07/20/24 Hydraulic Spinner Relationship Specialty Start Date End Date Sherri Davalos MD [address] [place] [address] PCP - General Family Medicine 02/16/17 Group, [facility] [address] [place] [address] Cardiology 10/13/23 Podlogar, Zeynep, CONTRACTOR FIELD HAULING.ROLL COATING MACHINE OPERATOR [address] [place] [address] Geospatial Technician Family Medicine 07/20/24 Hydraulic Spinner Relationship Specialty Start Date End Date Sherri Davalos MD [address] [place] [address] PCP - General Family Medicine 02/16/17 Group, [facility] [address] [place] [address] Cardiology 10/13/23 Podlogar, Zeynep, CONTRACTOR FIELD HAULING.ROLL COATING MACHINE OPERATOR [address] [place] [address] Geospatial Technician Family Medicine 07/20/24 Hydraulic Spinner Relationship Specialty Start Date End Date Sherri Davalos MD [address] [place] [address] PCP - General Family Medicine 02/16/17 Group, [facility] [address] [place] [address] Cardiology 10/13/23 Podlogar, Zeynep, CONTRACTOR FIELD HAULING.ROLL COATING MACHINE OPERATOR [address] [place] [address] Geospatial Technician Family Medicine 07/20/24 Hydraulic Spinner Relationship Specialty Start Date End Date Sherri Davalos MD [address] [place] [address] PCP - General Family Medicine 02/16/17 Group, [facility] [address] [place] [address] Cardiology 10/13/23 Podlogar, Zeynep, CONTRACTOR FIELD HAULING.ROLL COATING MACHINE OPERATOR [address] [place] [address] Geospatial Technician Family Medicine 07/20/24 Hydraulic Spinner Relationship Specialty Start Date End Date Sherri Davalos MD [address] [place] [address] PCP - General Family Medicine 02/16/17 Group, [facility] [address] [place] [address] Cardiology 10/13/23 Podlogar, Zeynep, CONTRACTOR FIELD HAULING.ROLL COATING MACHINE OPERATOR [address] [place] [address] Geospatial Technician Family Medicine 07/20/24 Hydraulic Spinner Relationship Specialty Start Date End Date Sherri Davalos MD [address] [place] [address] PCP - General Family Medicine 02/16/17 Group, [facility] [address] [place] [address] Cardiology 10/13/23 Podlogar, Zeynep, CONTRACTOR FIELD HAULING.ROLL COATING MACHINE OPERATOR [address] [place] [address] Geospatial Technician Family Medicine 07/20/24 Hydraulic Spinner Relationship Specialty Start Date End Date Sherri Davalos MD [address] [place] [address] PCP - General Family Medicine 02/16/17 Group, [facility] [address] [place] [address] Cardiology 10/13/23 Podlogar, Zeynep, CONTRACTOR FIELD HAULING.ROLL COATING MACHINE OPERATOR [address] [place] [address] Geospatial Technician Family Medicine 07/20/24 Hydraulic Spinner Relationship Specialty Start Date End Date Sherri Davalos MD [address] [facility] [place] [address] PCP - General Family Medicine 02/16/17 [facility], [facility] [address] [facility] [place] [address] Cardiology 10/13/23 PodlogarZeynep APRN.ROLL COATING MACHINE OPERATOR [address] [facility] [address] Geospatial Technician Family Medicine 07/20/24 Shani Zamora APRN.ROLL COATING MACHINE OPERATOR [address] [facility] [place] [address] Geospatial Technician Family Medicine 10/25/24 11/03/24 Shani Zamora APRN.ROLL COATING MACHINE OPERATOR [address] [facility] [place] [place] [address] [facility] 11/04/24 Hydraulic Spinner Relationship Specialty Start Date End Date Sherri Davalos MD [address] [place] [address] PCP - General Family Medicine 02/16/17 Group, [facility] [address] [place] [address] Cardiology 10/13/23 PodlogarZeynep APRN.ROLL COATING MACHINE OPERATOR [address] [facility] [place] [address] Geospatial Technician Family Medicine 07/20/24 Shani Zamora APRN.ROLL COATING MACHINE OPERATOR [address] [facility] [place] [address] Geospatial Technician Family Medicine 01/23/25 Hydraulic Spinner Relationship Specialty Start Date End Date Sherri Davalos MD [address] [place] [address] PCP - General Family Medicine 02/16/17 Group, [facility] [address] [facility] [place] [address] Cardiology 10/13/23 Podlogar, FOX Adhikari.ROLL COATING MACHINE OPERATOR [address] [place] [address] Geospatial Technician Family Medicine 07/20/24 Shani Zamora APRN.ROLL COATING MACHINE OPERATOR [address] [facility] [place] [address] Geospatial Technician Family Medicine 01/23/25 Hydraulic Spinner Relationship Specialty Start Date End Date Sherri Davalos MD [address] [place] [address] PCP - General Family Medicine 02/16/17 Group, [facility] [address] [facility] [place] [address] Cardiology 10/13/23 Podlogar, Zeynep CONTRACTOR FIELD HAULING.ROLL COATING MACHINE OPERATOR [address] [place] [address] Geospatial Technician Family Medicine 07/20/24 Shani Zamora APRN.ROLL COATING MACHINE OPERATOR [address] [facility] [place] [place] [address] [facility] Hydraulic Spinner Relationship Specialty Start Date End Date Sherri Davalos MD [address] [place] [address] PCP - General Family Medicine 02/16/17 Group, [facility] [address] [place] [address] Cardiology 10/13/23 Podlogar, Zeynep, CONTRACTOR FIELD HAULING.ROLL COATING MACHINE OPERATOR [address] [facility] [place] [address] [facility] 07/20/24 Shani Zamora, FOX.ROLL COATING MACHINE OPERATOR [address] [place], [place] [address] [facility] 01/23/25 Hydraulic Spinner Relationship Specialty Start Date End Date Sherri Davalos MD [address] [place] [address] PCP - General Family Medicine 02/16/17 Group, [facility] [address] [place] [address] Cardiology 10/13/23 PodlogarZeynep APRN.ROLL COATING MACHINE OPERATOR [address] [place] [address] [facility] 07/20/24 Shani Zamora APRN.ROLL COATING MACHINE OPERATOR [address] [place] [address] [facility] 01/23/25 FOR RECORDS PERTAINING TO PATIENTS WHO ARE OR HAVE BEEN ENROLLED IN A CHEMICAL DEPENDENCY/SUBSTANCEABUSE PROGRAM, SOME INFORMATION MAY BE OMITTED. This clinical summary was aggregated from multiple sources. Caution should be exercised in using it in the provision of clinical care. This summary normalizes information from multiple sources, and as a consequence, information in this document may materially change the coding, format and clinical context of patient data. In addition, data may be omitted in some cases. CLINICAL DECISIONS SHOULD BE BASED ON THE PRIMARY CLINICAL RECORDS. [facility]. provides no warranty or guarantee of the accuracy or completeness of information in this document.
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
[2025-07-10] MEDS: Lidocaine 5% Patch 1 PATCH TOPICAL (22:09)
--- NOTE | 2025-07-10 22:20 | CT_ITS ---
PROCEDURE: CHEST WITHOUT CONTRAST 07/10/2025 REASON FOR EXAM: PAIN, RIGHT RIBS, TRAUMA TECHNIQUE: Chest CT without contrast. Coronal and Sagittal reconstruction series were provided. One or more dose reduction techniques were used (e.g., Automated exposure control, adjustment of the mA and/or kV according to patient size, use of iterative reconstruction technique RADIATION DOSE SUMMARY: CTDlvol: 19.66 mGy DLP: DLP 815.76 mGycm COMPARISON: Comparison none FINDINGS: Hardware: None Lymph nodes: Unremarkable. Heart and Vasculature: Extensive calcification of multiple coronary arteries is noted. There is a right coronary artery stent. Atherosclerotic calcifications of the thoracic aorta. Thoracic aorta and pulmonary arteries have normal contours; noncontrast technique limits evaluation. Coronary Artery Calcifications: Coronary artery calcifications present Lungs and Airways: Mild dependent atelectasis. Pleura: Unremarkable Upper Abdomen: There is projection of the proximal infrarenal abdominal aorta on this examination and the distal frame of the infrarenal abdominal aorta shows at there is at least ectasia of the infrarenal abdominal aorta. More inferior to this level the aortic could be aneurysmal. There is slight calcification of the visualized abdominal aorta. In the inferomedial aspect of the there is a 2 cm diameter there is a 2 cm diameter circumscribed, round, heterogeneous in density mass in the inferomedial-anterior aspect of the posterior hepatic segment. This mass has a mean attenuation of 5 Hounsfield units. In the inferomedial aspect of the right hepatic lobe there is a 16 mm subcapsular, heterogeneous irregular mass with a mean attenuation of -10.5 Hounsfield units. Bones: Degenerative changes of the thoracic spine. CT/Chest without Contrast IMPRESSION: 1. Coronary artery calcification (CAC) is present 2. 2 hepatic masses that could be cystic or solid. No evidence of an acute pr ocess. RECOMMEND: 1. Targeted hepatic ultrasound to determine if the 2 hepatic masses are simple cysts, complex cystic, or solid. 2. Ultrasound of the abdominal aorta to determine if there is an abdominal aort ic aneurysm. Reading Location: [id number]
[2025-07-10 22:57] VITALS: BP 129/62; PULSE 69; RESP 18; O2SAT 96
[2025-07-11] VITALS: BP 123/65; PULSE 60; RESP 16; O2SAT 95
[2025-07-11 01:11] VITALS: BP 114/59; PULSE 53; RESP 20; TEMP 36.9; O2SAT 95
== END 2025-07-11 01:16 | disposition home or self-care (01) ==
PROVIDERS: Emergency Provider Emergency Medicine; PCP Family Medicine; Visit Provider Emergency Medicine
DX: S20.211A Contusion of right front wall of thorax, initial encounter (principal); V47.5XXA Car driver injured in collision with fixed or stationary object in traffic accident, initial encounter; Y92.411 Interstate highway as the place of occurrence of the external cause; R16.0 Hepatomegaly, not elsewhere classified; I25.10 Atherosclerotic heart disease of native coronary artery without angina pectoris; I25.2 Old myocardial infarction; I10 Essential (primary) hypertension; Z95.5 Presence of coronary angioplasty implant and graft; Z79.82 Long term (current) use of aspirin; Z79.899 Other long term (current) drug therapy
CPT/HCPCS: 71250; 99285